=== PATIENT | female | born 1930 | race Caucasian/White ===

== ENCOUNTER → 2016-08-12 | Outpatient (CLI) | payer BC ==
[~2016-08-12] MED LIST: ALBU1AER9 INH; ASPCH81 PO; CLTP PO; GLCSC500400 PO; LSN5 PO; LUTE1TAB2 PO; MAGN400T5 PO; OMEG10007 PO; PRLSR20 PO; SIMV20TA2 PO; VERA240T20 PO
== END | disposition home or self-care (01) ==
LOC: C.RDSM 13:17
PROVIDERS: ATTEND Family Medicine
DX: M54.5 Low back pain (principal)

== ENCOUNTER 2016-12-30 04:07 | Emergency (ER) | payer BC ==
[~2016-12-30] VITALS: Ht 162.6 cm; Wt 68.9 kg
[2016-12-30 04:11] VITALS: TEMP 36.4; Ht 162.6 cm; Wt 68.9 kg
[2016-12-30] MEDS ORDERED: SODIUM CHLORIDE 0.9% 1000ML 1,000 ML IV STA (04:24)
[2016-12-30] MEDS ORDERED: FENTANYL CITRATE INJ 50 MCG/1 ML 2 ML VIAL IV STA (04:24)
[2016-12-30] MEDS ORDERED: ONDANSETRON INJ 2 MG/ML 2 ML VIAL IV STA (04:24)
[2016-12-30 04:36] LABS: BASO % 0.3 %; BASO ABS # 0.02 K/uL (0-0.2); COMPLETE YES; EOS % 2.3 %; HEMATOCRIT 40.1 % (37-47); IG% 0.1 %; LYMPH ABS # 2.46 K/uL (1.2-3.4); MEAN CELL VOLUME 80.2 fL (80-100); MEAN CORPUSCULAR HEMOGLOBIN 27.4 pg (25-34); MEAN CORPUSCULAR HGB CONC 34.2 g/dl (32-36); MEAN PLATELET VOLUME 9.5 fL (7.4-10.4); MONO % 6.4 %; NEUT % 58.9 %; PLATELET COUNT 225 K/uL (130-400); WHITE BLOOD COUNT 7.68 K/uL (4.8-10.8)
[2016-12-30 04:44] LABS: BUN/CREATININE RATIO 20.8 (10-20); CALCIUM 8.9 mg/dl (8.5-10.1); CREATININE 0.81 mg/dl (0.60-1.20); MAGNESIUM 2.1 mg/dl (1.8-2.4); POTASSIUM 3.6 mmol/L (3.5-5.1)
[2016-12-30] MEDS ORDERED: OPTIRAY 320 IV PRN (04:45)
--- NOTE | 2016-12-30 05:13 | EMERGENCY ROOM VISIT NOTE ---
History Report prepared by Dwayne: Cassidy Swanson Under the Supervision of: Dr. Sheri Zimmerman M.D. First contact with patient: 04:17 Chief Complaint: ABDOMINAL PAIN Stated Complaint: ABDOMINAL PAIN/NAUSEA Nursing Triage Summary: Pt woke up this evening with severe abdominal pain and cramping. Pt states she hasn't had a BM in over a week. Took 2 Dulcolax tablets last night without relief. C/o some nausea now. History of Present Illness The patient is an 86 year old female who presents to the Emergency Room with complaints of persistent abdominal pain starting 0300 today. The patient woke up with severe abdominal pain which is all over. She has never had this pain before. She is nauseous. She notes that she has had worsening constipation over the past month. She has not had a bowel movement in over 1 week. She keeps feeling like she needs to go to the bathroom, but she is not passing any stool. She is passing only a very small amount of gas. She is unsure why she is constipated. She denies any medication or diet changes. She denies any vomiting or bloody stools. She is not on any blood thinners. She has had a cholecystectomy. She has a history of diverticulosis and colon resection. Source of History: patient, spouse/significant other Onset: 0300 Position: abdomen Symptom Intensity: severe Quality: other (pain) Timing: other (persistent) Associated Symptoms: + nausea, No vomiting, No hematochezia Note: Pt reports constipation. Review of Systems See HPI for pertinent positives & negatives. A total of 10 systems reviewed and were otherwise negative. Past Medical & Surgical Medical Problems: (1) Aneurysm (2) Back surgery (3) Benign hypertension (4) Cholecystectomy (5) Lung surgery (6) Partial resection of colon Family History Stroke Social History Smoking Status: Never Smoker Alcohol Use: none Marital Status: Housing Status: lives with family Occupation Status: employed Current/Historical Medications Scheduled Aspirin (Aspirin Tab-Chewable *), 81 MG PO DAILY Calcium/Vitamin D (Caltrate 600 Plus *), 1 TAB PO DAILY Fish Oil ([place]-3), 3 CAP PO BID Glucosamine-Chondroitin (Glucosamine/Chondroitin), 1 TAB PO DAILY Lisinopril (Lisinopril), 5 MG PO DAILY Lutein (Lutein), 6 MG PO DAILY Magnesium Oxide (Mag-Ox), 400 MG PO DAILY Omeprazole (Prilosec), 20 MG PO DAILY Simvastatin (Zocor), 20 MG PO QPM Verapamil Sust Rel (Calan Sr Ext Rel), 240 MG PO DAILY Scheduled PRN Albuterol (Proair Hfa), 2 PUFFS INH QID PRN Allergies Coded Allergies: Adhesives (Verified Allergy, Unknown, RASH, REDDNESS AT SITE, 12/30/16) Codeine (Verified Allergy, Unknown, RASH, SEVERE ITCHING, 12/30/16) Metronidazole (Verified Allergy, Unknown, SEVERE YEAST/VAGINAL INFX, 12/30) Morphine (Verified Allergy, Unknown, IRREGULAR HEART RATE, EXTREME SEDATION, 12/30/16) Propoxyphene (Verified Adverse Reaction, Unknown, per pt, caused AFib, ) Physical Exam Vital Signs Date Time Temp Pulse Resp B/P (MAP) Pulse Ox O2 Delivery O2 Flow Rate FiO2 12/30/16 07:24 86 18 110/59 94 Room Air 12/30/16 04:45 77 18 129/66 97 Nasal Cannula 2.0 12/30/16 04:40 88 Room Air 12/30/16 04:14 80 12/30/16 04:11 36.4 80 18 131/77 94 Room Air Physical Exam Vital signs reviewed. General: Agitated and somewhat tearful female, in no significant distress. HEENT: No scleral icterus, PERRLA, neck supple. Atraumatic. Cardiovascular: Regular rate and rhythm, no extra sounds. Pulmonary: Clear to auscultation bilaterally, normal work of breathing. Abdomen: Soft, nontender, nondistended, positive bowel sounds. Rectal: Guaiac negative stool. Formed stool in the rectum. Large external hemorrhoid. Musculoskeletal: Atraumatic, no peripheral edema. Neurologic: Patient awake alert and oriented x 3 Skin: Warm, dry, no rash Medical Decision & Procedures ER Provider Diagnostic Interpretation: Radiology results as stated below per my review and [facility] radiologist interpretation: CT Abdomen & Pelvis with Contrast: Comparison: CT abdomen and pelvis 09/15/2011. Mild biliary prominence, likely secondary to cholecystectomy but slightly increased since 09/15/11. Correlate with labs for biliary stasis. Moderate amount of retained stool throughout the colon, suggesting constipation. Mild circumferential urinary bladder wall thickening. Correlate for cystitis. Colonic diverticulosis without evidence of diverticulitis. No evidence of bowel obstruction. No free air. Appendix is normal. Stable left adrenal nodule. Several subcentimeter hypodensities in the kidneys are too small to characterize but likely cysts. Uterus is surgically absent. Small hiatal hernia. Laboratory Results 12/30/16 04:16 Red Blood Count 5.00, Mean Corpuscular Volume 80.2, Mean Corpuscular Hemoglobin 27.4, Mean Corpuscular Hemoglobin Concent 34.2, Mean Platelet Volume 9.5, Neutrophils (%) (Auto) 58.9, Lymphocytes (%) (Auto) 32.0, Monocytes (%) (Auto) 6.4, Eosinophils (%) (Auto) 2.3, Basophils (%) (Auto) 0.3, Neutrophils # (Auto) 4.52, Lymphocytes # (Auto) 2.46, Monocytes # (Auto) 0.49, Eosinophils # (Auto) 0.18, Basophils # (Auto) 0.02 12/30/16 04:16 Test 12/30/16 04:16 12/30/16 04:32 White Blood Count 7.68 K/uL (4.8-10.8) Red Blood Count 5.00 M/uL (4.2-5.4) Hemoglobin 13.7 g/dL (12.0-16.0) Hematocrit 40.1 % (37-47) Mean Corpuscular Volume 80.2 fL (80-100) Mean Corpuscular Hemoglobin 27.4 pg (25-34) Mean Corpuscular Hemoglobin Concent 34.2 g/dl (32-36) Platelet Count 225 K/uL (130-400) Mean Platelet Volume 9.5 fL (7.4-10.4) Neutrophils (%) (Auto) 58.9 % Lymphocytes (%) (Auto) 32.0 % Monocytes (%) (Auto) 6.4 % Eosinophils (%) (Auto) 2.3 % Basophils (%) (Auto) 0.3 % Neutrophils # (Auto) 4.52 K/uL (1.4-6.5) Lymphocytes # (Auto) 2.46 K/uL (1.2-3.4) Monocytes # (Auto) 0.49 K/uL (0.11-0.59) Eosinophils # (Auto) 0.18 K/uL (0-0.5) Basophils # (Auto) 0.02 K/uL (0-0.2) RDW Standard Deviation 40.5 fL (36.4-46.3) RDW Coefficient of Variation 13.8 % (11.5-14.5) Immature Granulocyte % (Auto) 0.1 % Immature Granulocyte # (Auto) 0.01 K/uL (0.00-0.02) Anion Gap 6.0 mmol/L (3-11) Est Creatinine Clear Calc Drug Dose 49.3 ml/min Estimated GFR () 77.3 Estimated GFR (Non- 66.7 BUN/Creatinine Ratio 20.8 (10-20) Calcium Level 8.9 mg/dl (8.5-10.1) Magnesium Level 2.1 mg/dl (1.8-2.4) Total Bilirubin 0.8 mg/dl (0.2-1) Direct Bilirubin 0.2 mg/dl (0-0.2) Aspartate Amino Transf (AST/SGOT) 12 U/L (15-37) Alanine Aminotransferase (ALT/SGPT) 19 U/L (12-78) Alkaline Phosphatase 72 U/L (45-117) Total Protein 7.2 gm/dl (6.4-8.2) Albumin 3.7 gm/dl (3.4-5.0) Lipase 161 U/L (73-393) Bedside Troponin I < 0.030 ng/ml (0-0.045) Laboratory results per my review. Medications Administered Medications (Trade) Dose Ordered Sig/Cristian Route Start Time Stop Time Status Last Admin Dose Admin Fentanyl Citrate (Fentanyl Inj) 50 mcg NOW STAT IV 12/30/16 04:24 12/30/16 04:28 DC 12/30/16 04:32 50 MCG Ondansetron HCl (Zofran Inj) 4 mg NOW STAT IV 12/30/16 04:24 12/30/16 04:28 DC 12/30/16 04:32 4 MG Sodium Chloride 1,000 ml @ 125 mls/hr Q8H STAT IV 12/30/16 04:24 12/30/16 12:23 12/30/16 04:38 125 MLS/HR Miscellaneous (Soap Suds Enema) 1 ea NOW STAT WI 12/30/16 05:29 12/30/16 05:30 DC 12/30/16 05:29 1 EA ECG Indication: abdominal pain Rate (beats per minute): 80 Rhythm: normal sinus Findings: LBBB, no acute ischemic change, left axis deviation ED Course 0421: Past medical records reviewed. The patient was evaluated in room B6. A complete history and physical examination was performed. 0424: NSS 1000 ml @ 125 mls/hr IV, Zofran Inj 4 mg IV, Fentanyl Inj 50 mcg IV. 0529: Soap Suds Enema WI. 0643: Upon reevaluation, the patient appeared to have improvement of her symptoms. I discussed findings with her. She verbalized agreement of the treatment plan. She was discharged home. Medical Decision Differential diagnosis: Etiologies such as appendicitis, diverticulitis, PUD, biliary pathology, UTI, pancreatitis, obstruction, mesenteric ischemia, aortic pathology, infections, inflammatory bowel disease, renal colic, constipation, as well as others were entertained. This patient was evaluated and appeared to be in some discomfort. IV access was obtained and laboratory work was drawn. Patient has cramping diffuse abdominal pain. She was hydrated with normal saline solution and given IV fentanyl and Zofran for her symptom control. Laboratory work is fairly unrevealing. There is no evidence of UTI. There is no leukocytosis. CT scan abdomen and pelvis was performed as the patient has had significant issues with diverticulitis and is status post colon resection. This study is negative for acute inflammatory findings however there is significant stool throughout the colon. Patient admits that she has not had a bowel movement in greater than 1 week. Soapsuds enema was performed and the patient did have some moderate result. She was ambulatory at the bedside and able to speak with me comfortably. She was advised to use MiraLAX 1/2-1 capful every 8 hours as needed for additional BM. We discussed increasing the fluids and fiber in her diet. She will follow-up with her PCP for further management. The patient will return to the ER for worsening of symptoms or any medical concerns. Medication Reconcilliation Current Medication List: was personally reviewed by me Blood Pressure Screening Patient's blood pressure: Normal blood pressure Blood pressure disposition: Did not require urgent referral Impression Primary Impression: Constipation Additional Impression: Abdominal pain Scribe Attestation The scribe's documentation has been prepared under my direction and personally reviewed by me in its entirety. I confirm that the note above accurately reflects all work, treatment, procedures, and medical decision making performed by me. Departure Information Dispostion Home / Self-Care Referrals Jose Law M.D. (PCP) Forms HOME CARE DOCUMENTATION FORM, IMPORTANT VISIT INFORMATION Patient Instructions Constipation, My [facility] Additional Instructions Diagnosis: Constipation, abdominal pain Drink plenty of clear fluids. Increase the fiber in your diet. MiraLAX 1/2-1 capful in 8 ounces of water every 8 hours as needed for a bowel movement. Follow-up with your physician this week for reevaluation. Return to the ER for worsening of pain, fever or any medical concerns. Problem Qualifiers
[2016-12-30] MEDS ORDERED: SOAP SUDS ENEMA PR STA (05:29)
--- NOTE | 2016-12-30 06:38 | DIAGNOSTIC IMAGING REPORT ---
CT ABD/PELVIS IV CONTRAST ONLY CLINICAL HISTORY: Mid to upper abdominal pain COMPARISON STUDY: September 15, 2011 TECHNIQUE: Following the IV administration of 93 mL of Optiray-320, CT scan of the abdomen and pelvis was performed from the lung bases to the proximal femurs. Images are reviewed in the axial, sagittal, and coronal planes. IV contrast was administered without complication. A dose lowering technique was utilized adhering to the principles of ALARA. CT DOSE: 287.43 mGy.cm FINDINGS: Lower chest: There is subpleural interstitial thickening. There is a small hiatal hernia. Liver: There is mild ductal prominence, minimally more pronounced than on the preceding study Gallbladder: The gallbladder surgically absent Spleen: Normal in size and attenuation. Pancreas: Unremarkable. Adrenal glands: There is a 14 mm left adrenal nodule, unchanged from the prior study Kidneys: There is an 8 mm left renal cyst. No solid renal masses are visualized. Bowel: There are no transition zone to indicate bowel obstruction. There is colonic diverticulosis. No acute peridiverticular inflammatory changes are visualized. The appendix appears normal. Peritoneum: There is no intraperitoneal free air or abdominal ascites. Vasculature: The abdominal aorta is normal in course and caliber. Adenopathy: None. Pelvic viscera: The uterus is surgically absent. There is mild bladder wall thickening. Skeletal structures: No destructive osseous lesions are seen. IMPRESSION: 1. No evidence of bowel obstruction. No evidence of free air 2. Normal appendix. 3. Pandiverticulosis. No evidence of acute peridiverticular inflammatory change 4. Mild bladder wall thickening 5. Stable left adrenal gland nodule 6. Mild biliary ductal dilatation. Surgically absent gallbladder. Electronically signed by: Renzo Sarabia M.D. 12/30/2016 6:36 AM Dictated Date/Time: 12/30/2016 6:32 AM
[2016-12-30 07:24] VITALS: BP 110/59; PULSE 86; O2SAT 94
== END 2016-12-30 07:52 | disposition home or self-care (01) ==
LOC: EDBD 04:07 → C.EDB 04:07
DX: K59.00 Constipation, unspecified (principal); R10.9 Unspecified abdominal pain; I44.7 Left bundle-branch block, unspecified; I10 Essential (primary) hypertension; Z90.49 Acquired absence of other specified parts of digestive tract; Z98.890 Other specified postprocedural states; Z79.82 Long term (current) use of aspirin; Z79.899 Other long term (current) drug therapy; Z88.5 Allergy status to narcotic agent; Z88.8 Allergy status to other drugs, medicaments and biological substances; Z91.09 Other allergy status, other than to drugs and biological substances; Z82.3 Family history of stroke

== ENCOUNTER 2017-05-08 19:55 | Emergency (ER) | payer BC ==
[~2017-05-08] VITALS: Ht 162.6 cm; Wt 69.6 kg
[2017-05-08 19:58] VITALS: TEMP 36.7; Ht 162.6 cm; Wt 69.6 kg
[2017-05-08 21:08] LABS: BASO % 0.5 %; BASO ABS # 0.03 K/uL (0-0.2); EOS % 4.8 %; EOS ABS # 0.27 K/uL (0-0.5); HEMOGLOBIN 13.4 g/dL (12.0-16.0); IG# 0.01 K/uL (0.00-0.02); LYMPH % 38.4 %; LYMPH ABS # 2.16 K/uL (1.2-3.4); MEAN CELL VOLUME 78.8 fL (80-100); MEAN CORPUSCULAR HEMOGLOBIN 27.1 pg (25-34); MEAN CORPUSCULAR HGB CONC 34.4 g/dl (32-36); MEAN PLATELET VOLUME 9.5 fL (7.4-10.4); MONO % 7.7 %; MONO ABS # 0.43 K/uL (0.11-0.59); NEUT % 48.4 %; NEUT ABS # 2.72 K/uL (1.4-6.5); PLATELET COUNT 245 K/uL (130-400); RED CELL DISTRIBUTION WIDTH CV 14.5 % (11.5-14.5); RED CELL DISTRIBUTION WIDTH SD 41.1 fL (36.4-46.3); WHITE BLOOD COUNT 5.62 K/uL (4.8-10.8)
[2017-05-08 21:19] LABS: PTT PATIENT 27.3 SECONDS (21.0-31.0)
[2017-05-08 21:25] LABS: ALBUMIN 3.7 gm/dl (3.4-5.0); CALCIUM 9.1 mg/dl (8.5-10.1); CREATININE 0.83 mg/dl (0.60-1.20); POTASSIUM 3.8 mmol/L (3.5-5.1)
[2017-05-08 22:14] VITALS: BP 135/71; PULSE 97; O2SAT 96
--- NOTE | 2017-05-08 23:44 | EMERGENCY ROOM VISIT NOTE ---
History Report prepared by Dwayne: Benjamin Centeno Under the Supervision of: Dr. Jose Pratt M.D. First contact with patient: 20:04 Chief Complaint: RECTAL BLEEDING Stated Complaint: BLEEDING FROM COLON History of Present Illness The patient is an 87 year old female who presents to the Emergency Room with complaints of recurrent rectal bleeding for two days. She notes that the blood is bright red in color. She states that she had an episode of bloody stool yesterday. She was seen by her plant and equipment worker at [facility] at 1000 today and had an XR of her abdomen which showed that stool was present. She states that she did not have another episode prior to the XR. She also had blood work which she which she was told was unremarkable. She was informed to come to the ED for evaluation if she had another episode. She states that she had another episode this evening and was concerned. She denies any pain with bowel movements. She reports that she has a significant amount of stool during the bowel movements. She did not notice any clots. She has a history of hemorrhoids , diverticulitis, and hemorrhoidectomy. She denies any abdominal pain, black stools, fever, vomiting, chest pain, or headache. She denies any use of blood thinners. Source of History: patient Onset: two days Position: other (rectal) Quality: other (bleeding) Timing: other (recurrent) Associated Symptoms: No fevers, No headache, No chest pain, No vomiting, No abdominal pain Note: She notes bright red blood. She denies any pain with bowel movement or black stools. Review of Systems See HPI for pertinent positives & negatives. A total of 10 systems reviewed and were otherwise negative. Past Medical & Surgical Medical Problems: (1) Aneurysm (2) Back surgery (3) Benign hypertension (4) Cholecystectomy (5) Lung surgery (6) Partial resection of colon Family History Stroke Social History Smoking Status: Never Smoker Smokeless Tobacco Use: No Alcohol Use: none Drug Use: none Marital Status: Housing Status: lives with family Occupation Status: unemployed Current/Historical Medications Scheduled Aspirin (Aspirin Tab-Chewable *), 81 MG PO DAILY Calcium/Vitamin D (Caltrate 600 Plus *), 1 TAB PO DAILY Fish Oil ([place]-3), 3 CAP PO BID Glucosamine-Chondroitin (Glucosamine/Chondroitin), 1 TAB PO DAILY Lisinopril (Lisinopril), 5 MG PO DAILY Lutein (Lutein), 6 MG PO DAILY Magnesium Oxide (Mag-Ox), 400 MG PO DAILY Omeprazole (Prilosec), 20 MG PO DAILY Simvastatin (Zocor), 20 MG PO QPM Verapamil Sust Rel ([place] Sr Ext Rel), 240 MG PO DAILY Scheduled PRN Albuterol (Proair Hfa), 2 PUFFS INH QID PRN Allergies Coded Allergies: Adhesives (Verified Allergy, Unknown, RASH, REDDNESS AT SITE, 12/30/16) Codeine (Verified Allergy, Unknown, RASH, SEVERE ITCHING, 12/30/16) Metronidazole (Verified Allergy, Unknown, SEVERE YEAST/VAGINAL INFX, 12/30) Morphine (Verified Allergy, Unknown, IRREGULAR HEART RATE, EXTREME SEDATION, 12/30/16) Propoxyphene (Verified Adverse Reaction, Unknown, per pt, caused AFib, ) Physical Exam Vital Signs Date Time Temp Pulse Resp B/P (MAP) Pulse Ox O2 Delivery O2 Flow Rate FiO2 05/08/17 22:14 97 18 135/71 96 05/08/17 19:58 36.7 106 18 146/78 94 Room Air Physical Exam Constitutional: Vital signs reviewed. Eyes: Pupils are equal round reactive to light. Conjunctiva are noninjected. ENT: Pharynx is clear without erythema or exudate. Mucous membranes are moist. Neck supple without meningeal signs. Respiratory: Clear to auscultation bilaterally. Breath sounds are equal bilaterally. Cardiovascular: Regular rate and rhythm. No rubs or gallops. GI: Soft, nondistended and nontender. Bowel sounds are present. Rectal: Multiple non-bleeding external hemorrhoids. Dark brown stool with gross blood visible. Musculoskeletal: No peripheral edema. No lower extremity tenderness. Integumentary: No cyanosis. Neurological: The patient is awake and alert. No focal deficits. Psychiatric: Normal affect. Medical Decision & Procedures Laboratory Results 05/08/17 20:45 Red Blood Count 4.95, Mean Corpuscular Volume 78.8, Mean Corpuscular Hemoglobin 27.1, Mean Corpuscular Hemoglobin Concent 34.4, Mean Platelet Volume 9.5, Neutrophils (%) (Auto) 48.4, Lymphocytes (%) (Auto) 38.4, Monocytes (%) (Auto) 7.7, Eosinophils (%) (Auto) 4.8, Basophils (%) (Auto) 0.5, Neutrophils # (Auto) 2.72, Lymphocytes # (Auto) 2.16, Monocytes # (Auto) 0.43, Eosinophils # (Auto) 0.27, Basophils # (Auto) 0.03 05/08/17 20:45 Test 05/08/17 20:45 White Blood Count 5.62 K/uL (4.8-10.8) Red Blood Count 4.95 M/uL (4.2-5.4) Hemoglobin 13.4 g/dL (12.0-16.0) Hematocrit 39.0 % (37-47) Mean Corpuscular Volume 78.8 fL (80-100) Mean Corpuscular Hemoglobin 27.1 pg (25-34) Mean Corpuscular Hemoglobin Concent 34.4 g/dl (32-36) Platelet Count 245 K/uL (130-400) Mean Platelet Volume 9.5 fL (7.4-10.4) Neutrophils (%) (Auto) 48.4 % Lymphocytes (%) (Auto) 38.4 % Monocytes (%) (Auto) 7.7 % Eosinophils (%) (Auto) 4.8 % Basophils (%) (Auto) 0.5 % Neutrophils # (Auto) 2.72 K/uL (1.4-6.5) Lymphocytes # (Auto) 2.16 K/uL (1.2-3.4) Monocytes # (Auto) 0.43 K/uL (0.11-0.59) Eosinophils # (Auto) 0.27 K/uL (0-0.5) Basophils # (Auto) 0.03 K/uL (0-0.2) RDW Standard Deviation 41.1 fL (36.4-46.3) RDW Coefficient of Variation 14.5 % (11.5-14.5) Immature Granulocyte % (Auto) 0.2 % Immature Granulocyte # (Auto) 0.01 K/uL (0.00-0.02) Prothrombin Time 10.0 SECONDS (9.0-12.0) Prothromb Time International Ratio 1.0 (0.9-1.1) Activated Partial Thromboplast Time 27.3 SECONDS (21.0-31.0) Partial Thromboplastin Ratio 1.1 Anion Gap 7.0 mmol/L (3-11) Est Creatinine Clear Calc Drug Dose 47.5 ml/min Estimated GFR () 74.5 Estimated GFR (Non- 64.3 BUN/Creatinine Ratio 16.6 (10-20) Calcium Level 9.1 mg/dl (8.5-10.1) Total Bilirubin 0.5 mg/dl (0.2-1) Direct Bilirubin 0.1 mg/dl (0-0.2) Aspartate Amino Transf (AST/SGOT) 20 U/L (15-37) Alanine Aminotransferase (ALT/SGPT) 20 U/L (12-78) Alkaline Phosphatase 82 U/L (45-117) Total Protein 7.0 gm/dl (6.4-8.2) Albumin 3.7 gm/dl (3.4-5.0) Laboratory results as reviewed by me. ED Course 2005: The patient was evaluated in room B8. A complete history and physical exam was performed. 2141: Review of patients blood work from this morning showed the Hemoglobin was 13.5 at the time. 2143: I reassessed the patient at this time. She has not had any bleeding. I discussed the results and treatment plan with the patient. I answered all pertaining questions that she had. She expressed understanding and verbalized agreement. The patient will be discharged home. 2152: I spoke with the case finisher. She will help expedite close follow up for the patient. Medical Decision This is an 87-year-old female who presents with rectal bleeding. Differential diagnosis includes external hemorrhoids, internal hemorrhoids, anal fissure, GI bleed, anemia. I did perform a limited focused review of portions of the patient's old chart on the electronic medical record. The patient has had no recent pertinent visits to this hospital. I did evaluate the patient as noted above. The patient is presenting with rectal bleeding 2 episodes. She states it is bright red. She does have a history of hemorrhoids and does have visible external hemorrhoids. She denies any abdominal pain. She has no lightheadedness, shortness of breath or chest pain. He denies any weakness. IV access was established. I did order and review the patient's blood work as noted in the electronic medical record. Her hemoglobin is 13.4. Her hemoglobin earlier today was 13.5. There is no significant change. At this time I felt she was stable for discharge for outpatient workup. She was advised to follow-up with her GI doctor and the case finisher will help expedite follow-up appointment early next week. I did give her return precautions and advised to return should she have any worsening symptoms or develop any new symptoms such as chest pain, shortness of breath, weakness or lightheadedness. She was discharged in good condition. Medication Reconcilliation Current Medication List: was personally reviewed by me Blood Pressure Screening Patient's blood pressure: Elevated blood pressure Blood pressure disposition: Referred to PCP Impression Primary Impression: Rectal bleeding Scribe Attestation The scribe's documentation has been prepared under my direct and personally reviewed by me in its entirety. I confirm that the note above accurately reflects all work, treatment, procedures, and medical decision making performed by me. Departure Information Dispostion Home / Self-Care Referrals Jose Law M.D. (PCP) Forms HOME CARE DOCUMENTATION FORM, IMPORTANT VISIT INFORMATION, WORK / SCHOOL INSTRUCTIONS Patient Instructions ED Hematochezia Stable, My [facility] Additional Instructions You have been examined and treated today on an emergency basis only. This is not a substitute for, or an effort to provide, complete comprehensive medical care. It is impossible to recognize and treat all injuries or illnesses in a single emergency department visit. It is therefore important that you follow up closely with your physician. Call as soon as possible for an appointment. Return for worsening symptoms or if you develop black or tarry stools, large clots or dark blood, lightheadedness, weakness or shortness of breath, chest pain, or any other concerning symptoms.
== END 2017-05-08 22:16 | disposition home or self-care (01) ==
LOC: C.EDB 19:56
DX: K62.5 Hemorrhage of anus and rectum (principal); K92.89 Other specified diseases of the digestive system; Z79.82 Long term (current) use of aspirin; Z79.899 Other long term (current) drug therapy; Z88.8 Allergy status to other drugs, medicaments and biological substances

== ENCOUNTER → 2017-09-25 | Outpatient (CLI) | payer BC ==
[~2017-09-25] MED LIST changes: -ALBU1AER9 INH; -ASPCH81 PO; +ASPI81TA28 PO; +CALC-579 PO; -CLTP PO; -GLCSC500400 PO; +GLUC500C60 PO; +LISI-730 PO; -LSN5 PO; +OMEP20CA9 PO; +PLV75 PO; -PRLSR20 PO; +SIMV-151 PO; -SIMV20TA2 PO; -VERA240T20 PO; +VRPSR240 PO
--- NOTE | 2017-09-25 15:27 | MAMMOGRAPHY REPORT ---
BILATERAL DIGITAL SCREENING MAMMOGRAM TOMOSYNTHESIS WITH CAD: 09/25/2017 CLINICAL HISTORY: Routine screening. The patient reported to the technologist an area of thickening i nvolving the right breast for approximately 1 month. TECHNIQUE: The study was acquired using full field digital technology and interpreted from soft copy. Breast tomosynthesis in addition to standard 2D mammography was performed. Current study was also ev aluated with a Computer Aided Detection (CAD) system. COMPARISON: Comparison is made to exams dated: 10/12/2008, 10/12/2007. BREAST COMPOSITION: There are scattered areas of fibroglandular density in both breasts. FINDINGS: No suspicious masses, calcifications, or areas of architectural distortion are noted in either breast . There has been no significant interval change compared to prior exams. Scattered bilateral benign- appearing calcifications are again noted. A triangle marker was placed at the area of thickening poi nted out by the patient in the right breast at approximately 12:00 posteriorly; no suspicious masses or other suspicious mammographic abnormalities are noted in this region. IMPRESSION: ACR BI-RADS CATEGORY 2: BENIGN There is no mammographic evidence of malignancy in either breast. However, the patient reported a th ickening in the right breast for approximately 1 month. As the workup for a palpable abnormality inc ludes mammograms and ultrasound, targeted ultrasound is recommended for further evaluation. Also rec ommend routine bilateral screening mammograms in one year. The patient will receive written notification of the results. Some breast cancers are not detected with mammography. A negative mammographic report should not alexi y biopsy if a clinically suggestive mass is present. Anabel Chopra M.D. ah/:09/25/2017 14:57:50 Gauge Maker Apprentice: NAE Grant)([place]), [facility] [address] letter sent: Normal 1/2 BI-RADS Code: ACR BI-RADS Category 2: Benign
== END | disposition home or self-care (01) ==
LOC: C.MAMM 09:44
PROVIDERS: ATTEND Family Medicine
DX: Z12.31 Encounter for screening mammogram for malignant neoplasm of breast (principal)

== ENCOUNTER 2019-11-06 23:44 | Inpatient (IN) ==
[2019-11-06] MEDS ORDERED: dilTIAZem HCl 5 MG/ML 5 ML VIAL IV STA (23:51)
[2019-11-06] MEDS ORDERED: dilTIAZem HCl 5 MG/ML 5 ML VIAL IV ONE (23:52)
[2019-11-07 00:06] LABS: Hematocrit (blood only) 44.6 % (37-47); Hemoglobin 15.6 g/dL (12.0-16.0); Immature Granulocytes # (auto) 0.03 K/uL (0.00-0.02); Immature Granulocytes % (auto) 0.3 %; Lymphocytes # (auto) 1.69 K/uL (1.2-3.4); Lymphocytes % (auto) 18.9 %; Mean Corpuscular Hemoglobin 28.4 pg (25-34); Mean Corpuscular Volume 81.1 fL (80-100); Mean Platelet Volume 9.4 fL (7.4-10.4); Monocytes # (auto) 0.71 K/uL (0.11-0.59); Monocytes % (auto) 7.9 %; Neutrophils # (auto) 6.51 K/uL (1.4-6.5); Neutrophils % (auto) 72.9 %; Platelet Count 292 K/uL (130-400); RDW Coefficient of Variation 13.6 % (11.5-14.5); RDW Standard Deviation 40.5 fL (36.4-46.3); White Blood Count 8.94 K/uL (4.8-10.8)
[2019-11-07 00:27] LABS: Albumin Level 3.9 gm/dl (3.4-5.0); BUN Creatinine Ratio 20.4 (10-20); Calcium 9.1 mg/dl (8.5-10.1); Creatinine Clr Calc Pharmacy 41.5 ml/min; Est GFR (African American) 66.6; Est GFR (Non-African American) 57.5; Magnesium 2.2 mg/dl (1.8-2.4)
[2019-11-07 00:38] LABS: Bilirubin,Total 0.8 mg/dl (0.2-1); Globulin 3.8 gm/dl (2.5-4.0); Thyroid Stimulating Hormone 2.13 uIu/ml (0.300-4.500); Total Protein 7.7 gm/dl (6.4-8.2)
--- NOTE | 2019-11-07 00:39 | Emergency Department Note ---
Impression & Plan Atrial fibrillation with rapid ventricular response ED Provider Note NAME: FAHAD RICH AGE: 89 SEX: F ARRIVES VIA: Ambulance INFORMANT: Patient, EMS ED PROVIDER(S): Zena Rosenthal DO CHIEF COMPLAINT: Palpitation PLAN: Disposition: Admitted to the [facility] service Condition: Good MEDICAL DECISION MAKING: This is an 89-year-old female patient who presents to the emergency department with an episode of palpitations which was atrial fibrillation with rapid ventricular response. The patient received adenosine from EMS in the field which did not convert the patient. She presents in A. fib with RVR and received Cardizem here in the emergency department along with some Ativan and finally converted into a normal sinus rhythm. Patient describes a remote history of A. fib. I discussed the case with the [facility]ist and they will evaluate for further management. Triage Nursing notes reviewed and agree with them. Additional history obtained from EMS Prior medical records reviewed Vital Signs: reviewed and remarkable for tachycardia Differential diagnosis: A. fib with RVR, SVT, STEMI, NSTEMI, CHF ER treatment provided: IV Cardizem IV Ativan Diagnostics interpreted by me: ECG: ATRIAL fibrillation with rapid ventricular response at a rate of 149. No ischemic changes. No obvious ectopy. Cardiac Monitoring: A. fib with RVR at a rate of 136 Repeat EKG: Normal sinus rhythm at 81 with a left bundle branch block. There is T wave inversion in aVL with no obvious signs of ischemia or ST segment elevation Laboratory studies: See below Imaging studies: As per my interpretation Chest x-ray: No obvious cardiomegaly pulmonary infiltrates or pleural effusions Consultation(s): None HPI: 89/F arrives for evaluation of palpitations. The patient got up to go to bed when she began to feel a sudden onset of palpitations in her chest. She has a history of stroke and is on Coumadin for this. She describes having previous episodes of palpitations which only lasted for approximately 30 seconds to 60 seconds. This episode was lasting much longer and this prompted them to call EMS. Upon presentation to the emergency department, the patient was in atrial fibrillation with a rapid ventricular response. She complained of shortness of breath but no chest discomfort. ROS: See above HPI for pertinent positives & negatives. A total of 10 systems reviewed and were otherwise negative. PAST MEDICAL HISTORY:See Below PAST SURGICAL HISTORY:See Below FAMILY HISTORY:See Below SOCIAL HISTORY:See Below HOME MEDICATIONS:See list ALLERGIES:See list VITALS:See Below PHYSICAL EXAMINATION: HEENT: Head - normocephalic and atraumatic Pupils are equal, round, and reactive to light. Extraocular eye muscles are intact, and sclera are anicteric. Nose - moist nasal mucosa without discharge. Mouth - moist buccal mucosa. Oropharynx is nonerythematous and there is no tonsillar exudate or edema noted. Neck: Supple; no JVD, nuchal rigidity, cervical lymphadenopathy. Heart: Irregularly irregular rhythm with a tachycardic rate there is a normal S1 and S2 with no murmurs, clicks, or gallops appreciated. Lungs: Clear to auscultation bilaterally with no wheezes, rales, or rhonchi. Abdomen: Soft, completely nontender, nondistended, with good bowel sounds. There are no palpable pulsatile masses or hepatosplenomegaly. There is no guarding, rigidity, or rebound noted. Extremities: No evidence of cyanosis, clubbing, or edema. There are easily palpable peripheral pulses. Skin: warm and diaphoretic with good turgor and no rashes. ED COURSE: Times/Reassessments: 2345: The patient was quickly evaluated in room C4. Report was received from EMS. The patient had a second IV lock initiated and labs dra sandoval as above. Previous electronic medical records were reviewed. An order was placed for continuous cardiac monitoring. The patient was in atrial fibrillation with a rapid ventricular response. She was given a total of 20 mg of IV Cardizem which did bring her rate down initially. The patient remained hypertensive and tachycardic and seemed quite anxious. She was given IV Ativan. A portable chest x-ray was performed. After quite some time, the patient was able to relax some and her rhythm c onverted to a normal sinus rhythm. Discussed the case with the [facility]ist and they will evaluate for further management. I have personally spent greater than 40 minutes of critical care time in the direct management of this patient. This includes bedside care, interpretation of diagnostic studies, and testing, discussion with consultants, patient, and family members, and other required patient management activities. This 40 minutes is in excess of all separately billable procedures. Zena Rosenthal DO Past Med/Surg History Medical History (Updated 11/07/19 @ 05:31 by Zena Rosenthal DO) 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 Dysarthria Rectal bleeding Status post lung surgery (08/03/12) TIA (transient ischemic attack) Surgical History (Updated 04/20/19 @ 09:01 by Paulo Austin MD) H/O section H/O hemorrhoidectomy History of lung surgery Hx of cholecystectomy Family History (Updated 11/03/18 @ 06:43 by Elizabeth Rubio) Other Abdominal aortic aneurysm Stroke Social History Smoking Status: Never smoker Hx Alcohol Use: Yes Alcohol type: wine Hx Substance Use: No Preferred Language: Irish Communication Ability: Effective Truck [employer] Required: No Beliefs That Will Affect Care: None Current Living Situation: Spouse Feels Safe at Home: Yes Safety Concerns: Feels Safe At This Time Allergies Allergies Allergy/AdvReac Type Severity Reaction Status Date / Time adhesive Allergy Unknown RASH, Verified 11/07/19 02:50 REDDNESS AT SITE codeine Allergy Unknown RASH, Verified 11/07/19 02:50 SEVERE ITCHING metronidazole Allergy Unknown SEVERE Verified 11/07/19 02:50 YEAST/VAGINAL INFX morphine Allergy Unknown IRREGULAR Verified 11/07/19 02:50 HEART RATE, EXTREME SEDATION propoxyphene AdvReac Unknown per pt, Verified 11/07/19 02:50 caused AFib Home Meds Home Medications Medication Instructions Recorded Confirmed atorvastatin [Lipitor] 20 mg PO DAILY 01/30/18 11/07/19 clopidogrel [Plavix] 75 mg PO DAILY 01/30/18 11/07/19 lisinopril 5 mg PO DAILY 01/30/18 11/07/19 omeprazole 20 mg PO DAILY 01/30/18 11/07/19 verapamil 240 mg PO DAILY 01/30/18 11/07/19 albuterol sulfate 90 mcg/actuation 2 puffs INHALATION Q4H PRN #1 gm 10/26/18 11/07/19 aerosol inhaler calcium citrate-ergocalciferol 1 tab PO DAILY tab 10/26/18 11/07/19 (vitamin D2) 250 mg-100 unit tablet calcium-magnesium tablet 1 tab PO DAILY tab 10/26/18 11/07/19 glucosamine 750 [id number] 1 tab PO DAILY tab 10/26/18 11/07/19 no1 625 mg-C 30 mg-yennifer 1 mg tablet melatonin 10 mg tablet 10 mg PO DAILY tab 10/26/18 11/07/19 omega-3 acid ethyl esters 1 gram 4 cap PO DAILY cap 10/26/18 11/07/19 capsule Previous Rx's Medication Instructions Recorded polyethylene glycol 3350 [Miralax] 17 gm PO DAILY PRN #10 ea 01/31/18 Results & Data (ED) Vital Signs Vital Signs - 24 hr 11/07/19 00:02 11/07/19 00:08 11/07/19 00:09 Temperature 36.8 C Temperature Source Oral Pulse Rate 152 H Pulse Rate [Bilateral Apical] 106 H Respiratory Rate 20 20 Blood Pressure 142/86 H Blood Pressure [Right Arm] 132/68 Blood Pressure Mean 104 Blood Pressure Mean [Right Arm] 89 Blood Pressure Position Lying Blood Pressure Position [Right Arm] Lying Pulse Oximetry 96 98 96 Oxygen Delivery Method Room Air Nasal Cannula Nasal Cannula Oxygen Flow Rate 2 2 Sepsis Recent Fever Within 48 Hours No Sepsis New/Unexplained Change in Mental Status N/A Sepsis Action Taken by Nursing No Action Required 11/07/19 00:56 11/07/19 00:59 11/07/19 01:05 Temperature Temperature Source Pulse Rate Pulse Rate [Bilateral Apical] 140 H 127 H 115 H Respiratory Rate 22 20 20 Blood Pressure Blood Pressure [Right Arm] 133/93 118/69 Blood Pressure Mean Blood Pressure Mean [Right Arm] 106 85 Blood Pressure Position Blood Pressure Position [Right Arm] Pulse Oximetry 96 96 96 Oxygen Delivery Method Nasal Cannula Nasal Cannula Oxygen Flow Rate 2 2 Sepsis Recent Fever Within 48 Hours Sepsis New/Unexplained Change in Mental Status Sepsis Action Taken by Nursing 11/07/19 01:24 11/07/19 01:52 11/07/19 02:08 Temperature Temperature Source Pulse Rate Pulse Rate [Bilateral Apical] 121 H 117 H 84 Respiratory Rate 18 18 20 Blood Pressure Blood Pressure [Right Arm] 116/68 112/63 111/55 L Blood Pressure Mean Blood Pressure Mean [Right Arm] 84 79 73 Blood Pressure Position Blood Pressure Position [Right Arm] Pulse Oximetry 96 96 96 Oxygen Delivery Method Nasal Cannula Nasal Cannula Nasal Cannula Oxygen Flow Rate 2 2 2 Sepsis Recent Fever Within 48 Hours Sepsis New/Unexplained Change in Mental Status Sepsis Action Taken by Nursing 11/07/19 02:57 Temperature Temperature Source Pulse Rate Pulse Rate [Bilateral Apical] 79 Respiratory Rate 20 Blood Pressure Blood Pressure [Right Arm] 102/56 L Blood Pressure Mean Blood Pressure Mean [Right Arm] 71 Blood Pressure Position Blood Pressure Position [Right Arm] Pulse Oximetry 95 Oxygen Delivery Method Nasal Cannula Oxygen Flow Rate 2 Sepsis Recent Fever Within 48 Hours Sepsis New/Unexplained Change in Mental Status Sepsis Action Taken by Nursing Laboratory Data Result diagrams: 11/06/19 23:55 11/06/19 23:55 Lab Results 11/06/19 11/06/19 Range/Units 23:55 23:55 WBC 8.94 (4.8-10.8) K/uL RBC 5.50 H (4.2-5.4) M/uL Hgb 15.6 (12.0-16.0) g/dL Hct 44.6 (37-47) % MCV 81.1 (80-100) fL MCH 28.4 (25-34) pg MCHC 35.0 (32-36) g/dL RDW Std Deviation 40.5 (36.4-46.3) fL RDW Coeff of Coleman 13.6 (11.5-14.5) % Plt Count 292 (130-400) K/uL MPV 9.4 (7.4-10.4) fL Immature Gran % (Auto) 0.3 % Neut % (Auto) 72.9 % Lymph % (Auto) 18.9 % [place] % (Auto) 7.9 % Eos % (Auto) 0.0 % Baso % (Auto) 0.0 % Neut # (Auto) 6.51 H (1.4-6.5) K/uL Lymph # (Auto) 1.69 (1.2-3.4) K/uL [place] # (Auto) 0.71 H (0.11-0.59) K/uL Eos # (Auto) 0.00 (0-0.5) K/uL Baso # (Auto) 0.00 (0-0.2) K/uL Immature Gran # (Auto) 0.03 H (0.00-0.02) K/uL Sodium 139 (136-145) mmol/L Potassium 4.0 (3.5-5.1) mmol/L Chloride 107 (98-107) mmol/L Carbon Dioxide 26 (21-32) mmol/L Anion Gap 6.0 (3-11) BUN 18 (7-18) mg/dl Creatinine 0.90 (0.6-1.2) mg/dl Est Cr Clr Drug Dosing 41.5 ml/min Est GFR ( Amer) 66.6 Est GFR (Non-Af Amer) 57.5 BUN/Creatinine Ratio 20.4 H (10-20) Glucose 159 H (70-99) mg/dl Calcium 9.1 (8.5-10.1) mg/dl Magnesium 2.2 (1.8-2.4) mg/dl Total Bilirubin 0.8 (0.2-1) mg/dl AST 8 L (15-37) U/L ALT 18 (12-78) U/L Alkaline Phosphatase 88 (45-117) U/L Total Protein 7.7 (6.4-8.2) gm/dl Albumin 3.9 (3.4-5.0) gm/dl Globulin 3.8 (2.5-4.0) gm/dl Albumin/Globulin Ratio 1.0 (0.9-2) TSH 2.130 (0.300-4.500) uIu/ml Administered Medications Discontinued Medications Diltiazem HCl (Diltiazem Hcl 5 Mg/Ml 5 Ml Vial) Confirm Administered Dose 25 mg IV .STK-MED ONE Stop: 11/06/19 23:53 Last Increment: 11/07/19 00:00 Dose: 10 mg Documented by: [id number] Cosigned by: [id number] Diltiazem HCl (Diltiazem Hcl 5 Mg/Ml 5 Ml Vial) 10 mg IV NOW STA Stop: 11/06/19 23:52 Last Admin: 11/06/19 23:54 Dose: 10 mg Documented by: [id number] Cosigned by: [id number] Lorazepam (Ativan) 0.5 mg in 1 mls @ 1 mls/min IV NOW STA Stop: 11/07/19 01:09 Last Admin: 11/07/19 01:17 Dose: 1 mls/min Documented by: [id number] Discharge Plan Visit Data Chief Complaint: Tachycardia Stated Complaint: TACHYCARDIA ED Provider: Zena Rosenthal Discharge Problem: Atrial fibrillation with rapid ventricular response Patient Disposition: Admitted As Inpatient Discharge Instructions Interventions: ED Discharge Assessment Last Done: 11/07/19 03:47
[2019-11-07] MEDS ORDERED: LORazepam 0.5 MG/1 ML VIAL IV STA (01:08)
[2019-11-07] MEDS ORDERED: ALBUTEROL HFA 8 GM INHALER INH PRN (03:50)
[2019-11-07] MEDS ORDERED: POLYETHYLENE (MIRALAX) 17 GM PACK PO PRN (03:50)
[2019-11-07] MEDS ORDERED: NITROGLYCERIN SL 0.4 MG/TAB TAB SL PRN (03:50)
[2019-11-07] MEDS ORDERED: METOPROLOL TARTRATE 1 MG/ML VIAL IV PRN (03:50)
[2019-11-07] MEDS ORDERED: ONDANSETRON INJ 2 MG/ML 2 ML VIAL IV PRN (03:50)
[2019-11-07] MEDS ORDERED: ACETAMINOPHEN 325 MG TAB PO PRN (03:50)
--- NOTE | 2019-11-07 04:14 | History and Physical Report ---
DATE OF ADMISSION: 11/07/2019 CHIEF COMPLAINT: Rapid AFib. HISTORY OF PRESENT ILLNESS: This is an 89-year-old female with past medical history significant for hypertension, history of lung cancer, status post right upper lobectomy, history of sigmoidectomy for diverticulitis, history of hemorrhoids, chronic left bundle branch block, history of TIAs, history of single episode of atrial flutter several years ago in postop setting after upper extremity surgery, lasted for less than 3 hours, and the patient followed with cardiology and had outpatient Zio patch a few years back was unremarkable . The patient has chronic constipation, left lumbar radiculopathy, insomnia, osteoarthritis, who presents with palpitations, found to be on rapid atrial fibrillation. The patient says today she was fine until she was going to bed. When she was walking into the bedroom, she suddenly felt her heart pounding. She tried to rest, but it did not go away. Then called 911. When the EMS arrived, she was found in rapid AFib. They gave couple of doses of adenosine and then came to the ER. In the ER, she received 1 dose of Cardizem and she converted back to sinus rhythm. Currently, resting comfortably and hemodynamically stable. When the episode was happening, she was feeling somewhat nauseous and some chest tightness and short of breath; that is improved now. Denies any headache, no dizziness, no blurred vision, no earache, no runny nose, no sore throat, no cough, no difficulty swallowing. No abdominal pain. Normal bowel and bladder movements. Recently she had some bug bites and some lesions in the extremities with a lot of itchiness, which resolved a couple of weeks ago and she denies any tick bites. ALLERGIES: ADHESIVES, CODEINE, METRONIDAZOLE, MORPHINE, PROPOXYPHENE. PAST MEDICAL HISTORY: As mentioned above. PAST SURGICAL HISTORY: Carpal tunnel surgery, colonoscopy, hand surgery, shave biopsy of right lower back, lumbosacral injection, partial colectomy with anastomosis, removal of intrapulmonary foreign body, cholecystectomy, injection of the sacroiliac joint, left rotator cuff shoulder surgery, right upper lung lobectomy for lung cancer, total abdominal hysterectomy with removal of the tubes. MEDICATIONS: Currently, the patient is on albuterol 2 puffs inhalation q. 4 hours p.r.n., atorvastatin 20 mg p.o. daily, calcium plus vitamin D 1 tablet p.o. daily, calcium with magnesium 1 tablet daily, Plavix 75 mg p.o. daily, glucosamine chondroitin 1 tablet daily, lisinopril 5 mg p.o. daily, melatonin 10 mg p.o. daily, omega fatty acids 4 capsules daily, omeprazole 20 mg p.o. daily, MiraLax 17 g p.o. daily p.r.n., verapamil 240 mg p.o. daily. FAMILY HISTORY: Significant for aunt has diabetes, mother had heart disorder and abdominal aortic aneurysm, father had stroke. SOCIAL HISTORY: , lives with her . No smoking. Alcohol, occasional wine. No drug use. REVIEW OF SYSTEMS: As per HPI. Rest of the review of systems negative. PHYSICAL EXAMINATION: GENERAL: The patient is of moderate build, not in acute distress. VITAL SIGNS: Temperature 36.8, pulse 79, respiratory rate 20, blood pressure 102/56, oxygen 95% on 2 liters. HEENT: No pallor, no icterus. Pupils equal, round, and reactive to light. Oral mucosa moist. NECK: No JVD, no neck masses, no carotid bruits. CARDIOVASCULAR: S1, S2 heard, regular rate and rhythm. No murmur, no gallop. RESPIRATORY SYSTEM: Normal AP diameter. No accessory muscle use. No wheezing, no crackles. ABDOMEN: Soft, bowel sounds present, nontender. No distention. CENTRAL NERVOUS SYSTEM: Cranial nerves II-XII grossly intact. Nonfocal. EXTREMITIES: No edema, no erythema. LABORATORY DATA: WBC 8.9, hemoglobin 15.6, hematocrit 44.6, platelets 292. Sodium 139, potassium 4, chloride 107, bicarbonate 26, BUN 18, creatinine 0.9, serum glucose 159, calcium 9.1, magnesium 2.2, total bilirubin 0.8, AST 8, ALT 18, alkaline phosphatase 88. TSH 2.13. IMAGING DATA: Chest x-ray, no acute findings. EKG: Normal sinus rhythm, rate of 81, left bundle block. No acute ST changes seen. Initial EKG when she came in was atrial fibrillation with rapid ventricular response at rate of 152. Nonspecific ST changes. ASSESSMENT AND PLAN: This is an 89-year-old female who presents with atrial fibrillation. 1. Rapid atrial fibrillation. Received adenosine by EMS and Cardizem in the ER, and converted her back to normal sinus rhythm currently. The patient had one single episode of a flutter postop several years ago. We will monitor in the tele floor. Will continue her home verapamil and placed her on IV Lopressor p.r.n. Check serial enzymes, echocardiogram, and consult cardiology for further recommendations. Anticoagulation as per cardiology. Continue the Plavix for now. 2. History of hypertension, on lisinopril and verapamil. Will monitor the blood pressure. 3. Gastroesophageal reflux disease, continue Prilosec. 4. Hyperlipidemia, on statin. 5. Chronic constipation, MiraLax p.r.n. 6. Deep venous thrombosis prophylaxis, sequential compression devices. DISPOSITION: Admit to tele floor. Expect to discharge home and follow with family doctor. PT and OT prior to discharge. Social service to help with discharge planning. Level 1 full code. MTDD
[2019-11-07 07:09] LABS: Eosinophils # (auto) 0.01 K/uL (0-0.5); Eosinophils % (auto) 0.1 %; Hemoglobin 13.9 g/dL (12.0-16.0); Immature Granulocytes # (auto) 0.02 K/uL (0.00-0.02); Immature Granulocytes % (auto) 0.3 %; Lymphocytes # (auto) 1.84 K/uL (1.2-3.4); Lymphocytes % (auto) 23.9 %; Mean Corpuscular Hemoglobin 27.9 pg (25-34); Mean Corpuscular Hgb Conc 33.9 g/dL (32-36); Mean Corpuscular Volume 82.2 fL (80-100); Mean Platelet Volume 9.2 fL (7.4-10.4); Monocytes # (auto) 0.56 K/uL (0.11-0.59); Monocytes % (auto) 7.3 %; Neutrophils # (auto) 5.27 K/uL (1.4-6.5); Neutrophils % (auto) 68.4 %; Platelet Count 273 K/uL (130-400); RDW Coefficient of Variation 13.9 % (11.5-14.5); RDW Standard Deviation 41.9 fL (36.4-46.3); Red Blood Count 4.99 M/uL (4.2-5.4)
[2019-11-07 07:42] LABS: BUN Creatinine Ratio 25.3 (10-20); Calcium 8.9 mg/dl (8.5-10.1); Creatinine Clr Calc Pharmacy 46.9 ml/min; Est GFR (African American) 85.8; Est GFR (Non-African American) 74.1; Magnesium 2.3 mg/dl (1.8-2.4); Potassium 4.2 mmol/L (3.5-5.1)
[2019-11-07 07:48] LABS: Troponin I 0.028 ng/ml (0-0.045)
[2019-11-07] MEDS: lisinopriL 5 MG TAB PO SCH (08:10)
[2019-11-07] MEDS: CALCIUM 600MG + VIT D 400 IU TAB PO SCH (08:10)
[2019-11-07] MEDS: VERAPAMIL HCL 240 MG TABCR PO SCH (08:10)
[2019-11-07] MEDS: ATORVASTATIN 20 MG TAB PO SCH (08:11)
[2019-11-07] MEDS: PANTOprazole 40 MG TAB PO SCH (08:11)
--- NOTE | 2019-11-07 08:27 | XRay Report ---
XR chest 1V portable HISTORY: Atrial fibrillation. COMPARISON: Chest 06/30/2017. FINDINGS: The cardiac silhouette remains mildly enlarged. Mild diffuse interstitial thickening which is likely chronic. No new focal lung consolidations to suggest pneumonia. No evidence for pulmonary e colt. No pleural effusions. No pneumothorax. A right shoulder prosthesis is noted. IMPRESSION: No significant change compared to the prior study. No acute process. Stable mild cardiomegaly. ACT 112: Negative or not required by law. Electronically signed by: Elliot Singh M.D. 11/07/2019 8:26 AM
[2019-11-07] MEDS ORDERED: CALCIUM MAGNESIUM PO SCH (09:00)
[2019-11-07] MEDS ORDERED: CLOPIDOGREL BISULFATE 75 MG TAB PO SCH (09:00)
--- NOTE | 2019-11-07 09:32 | Electrocardiogram Report ---
Test Reason : Blood Pressure : / mmHG Vent. Rate : 149 BPM Atrial Rate : 159 BPM P-R Int : 000 ms QRS Dur : 126 ms QT Int : 322 ms P-R-T Axes : 000 -46 091 degrees QTc Int : 507 ms Atrial fibrillation with rapid ventricular response Left axis deviation Non-specific intra-ventricular conduction block Abnormal ECG When compared with ECG of 30-JUN-2017 16:26, Atrial fibrillation has replaced Sinus rhythm Vent. rate has increased BY 56 BPM Confirmed by Syed Arora ([id number]) on 11/07/2019 9:32:31 AM Referred By: REFERRED SELF Confirmed By:Syed Arora
--- NOTE | 2019-11-07 09:43 | Electrocardiogram Report ---
Test Reason : Blood Pressure : / mmHG Vent. Rate : 081 BPM Atrial Rate : 081 BPM P-R Int : 134 ms QRS Dur : 132 ms QT Int : 404 ms P-R-T Axes : 069 -59 078 degrees QTc Int : 469 ms Normal sinus rhythm Left axis deviation Left bundle branch block Abnormal ECG When compared with ECG of 06-NOV-2019 23:50, (unconfirmed) Sinus rhythm has replaced Atrial fibrillation Vent. rate has decreased BY 68 BPM Confirmed by Syed Arora ([id number]) on 11/07/2019 9:42:35 AM Referred By: REFERRED SELF Confirmed By:Syed Arora
--- NOTE | 2019-11-07 11:45 | Cardiology Consultation ---
Date of Consultation November 07, 2019 Assessment & Plan (1) Atrial fibrillation with rapid ventricular response: Patient is an 89-year-old female presents with atrial fibrillation with rapid response. Very remote history of past atrial flutter. Patient spontaneously converted to sinus rhythm after medications in the emergency room. She does carry history of past TIA and overall chads vasc 2 score of 6 and warrants long-term anticoagulation. Plan: Continue verapamil but add low-dose beta-shawn cautiously at 12.5 mg metoprolol succinate per day given underlying conduction system disease/left bundle branch block We will discontinue Plavix as being used for stroke reduction and initiate Eliquis versus warfarin depending on insurance coverage. Eliquis dosing will be 5 mg p.o. twice daily. No significant reduction in GFR and weight greater than 60 kg (2) History of TIA (transient ischemic attack): (3) HTN (hypertension): History of Present Illness Reason for Consultation: Paroxysmal atrial fibrillation Requesting Physician: Dr. Balderas Attending Physician: Maryan Baldreas MD History of Present Illness Patient is an 89-year-old female with underlying cardiac and noncardiac issues which include as per outpatient records 1. Longstanding hypertension 2. Chronic left bundle branch block 3. History of cerebral carotid artery aneurysm clipping 1988 4. Single episode transient atrial flutter post operatively 1988 5. Hyperlipidemia 6. Cardiac catheterization November 2010 without obstructive coronary disease 7. TIA with transient aphasia June of 2017 on anti-platelet therapy with clopidogrel Patient presents this admission noting having developed sudden onset of tachypalpitations and shortness of breath last evening. Symptoms persisted and paramedics were summoned initial treatments with adenosine at a rapid rate unhelpful. EKG on arrival atrial fibrillation with rapid response. Patient ultimately converted in the emergency room with single dose of IV diltiazem. Currently comfortable without cardiac complaint. No chest pain or shortness of breath. No orthopnea worsening peripheral edema. Has been very active day prior without complications or difficulties. No fevers chills unexplained infections. Appetite and weight have been stable. No headache or visual changes. No recent neurologic complaints Does bruise very easily on Plavix with multiple fragile skin tears in past. Allergies Allergy/AdvReac Type Severity Reaction Status Date / Time adhesive Allergy Unknown RASH, Verified 11/07/19 02:50 REDDNESS AT SITE codeine Allergy Unknown RASH, Verified 11/07/19 02:50 SEVERE ITCHING metronidazole Allergy Unknown SEVERE Verified 11/07/19 02:50 YEAST/VAGINAL INFX morphine Allergy Unknown IRREGULAR Verified 11/07/19 02:50 HEART RATE, EXTREME SEDATION propoxyphene AdvReac Unknown per pt, Verified 11/07/19 02:50 caused AFib Home Medications Home Medications Medication Instructions Recorded Confirmed Type atorvastatin [Lipitor] 20 mg PO DAILY 01/30/18 11/07/19 History clopidogrel [Plavix] 75 mg PO DAILY 01/30/18 11/07/19 History lisinopril 5 mg PO DAILY 01/30/18 11/07/19 History omeprazole 20 mg PO DAILY 01/30/18 11/07/19 History verapamil 240 mg PO DAILY 01/30/18 11/07/19 History polyethylene glycol 3350 [Miralax] 17 gm PO DAILY PRN #10 ea 01/31/18 11/07/19 Rx albuterol sulfate 90 mcg/actuation 2 puffs INHALATION Q4H PRN #1 gm 10/26/18 11/07/19 History aerosol inhaler calcium citrate-ergocalciferol 1 tab PO DAILY tab 10/26/18 11/07/19 History (vitamin D2) 250 mg-100 unit tablet calcium-magnesium tablet 1 tab PO DAILY tab 10/26/18 11/07/19 History glucosamine 750 [id number] 1 tab PO DAILY tab 10/26/18 11/07/19 History no1 625 mg-C 30 mg-yennifer 1 mg tablet melatonin 10 mg tablet 10 mg PO DAILY tab 10/26/18 11/07/19 History omega-3 acid ethyl esters 1 gram 4 cap PO DAILY cap 10/26/18 11/07/19 History capsule Patient History Medical History 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 Dysarthria Rectal bleeding Status post lung surgery (08/03/12) TIA (transient ischemic attack) Surgical History H/O section H/O hemorrhoidectomy History of lung surgery Hx of cholecystectomy Family History Other Abdominal aortic aneurysm Stroke Social History Smoking Status: Never smoker Hx Alcohol Use: Yes Alcohol type: wine Hx Substance Use: No Preferred Language: [place] Konger Communication Ability: Effective Facilities And Grounds Director Required: No Beliefs That Will Affect Care: None Current Living Situation: Spouse Feels Safe at Home: Yes Safety Concerns: Feels Safe At This Time Assistive Devices: Glasses Review of Systems Review of Systems: All systems reviewed & are unremarkable except as noted in HPI & below Physical Exam Constitutional: WD/WN, vitals as above no acute distress Eyes: PERRL, conjunctivae normal, anicteric sclerae ENMT: external ear and nose normal, oropharynx normal Neck: trachea midline, no thyromegaly Respiratory: normal respiratory effort, lungs clear to auscultation Cardiovascular: Rate/Rhythm: regular rate and regular rhythm Heart Sounds: normal S1, normal S2 and + murmur (Grade 2 or 6 systolic murmur no diastolic murmur); no gallop Palpation: normal PMI Vessels: normal carotid upstroke and radial pulses present; no JVD and no carotid bruit Extremities: no edema Gastrointestinal (Abdomen): normal bowel sounds, soft, nontender, no hepatosplenomegaly Musculoskeletal: no cyanosis or clubbing, extremities motor strength 5/5 Skin: no rashes, warm and dry Neurologic: PERRL, EOMI, accommodation nl, no face palsy, no dysarthria Psychiatric: A+Ox3, euthymic affect Results & Data ([facility]) Vital Signs (Past 12 Hours) Vital Signs Temp Pulse Pulse Resp BP BP Pulse Ox 11/07/19 07:54 36.6 C 72 18 121/68 97 11/07/19 04:03 36.7 C 74 18 119/70 97 11/07/19 03:47 64 18 105/51 L 98 11/07/19 02:57 79 20 102/56 L 95 11/07/19 02:08 84 20 111/55 L 96 11/07/19 01:52 117 H 18 112/63 96 11/07/19 01:24 121 H 18 116/68 96 11/07/19 01:05 115 H 20 118/69 96 11/07/19 00:59 127 H 20 96 11/07/19 00:56 140 H 22 133/93 96 11/07/19 00:09 106 H 20 132/68 96 11/07/19 00:08 98 09/21/20 00:02 36.8 C 152 H 20 142/86 H 96 Laboratory Results Laboratory Results - last 24 hr 11/06/19 11/06/19 11/07/19 23:55 23:55 06:52 WBC 8.94 7.70 RBC 5.50 H 4.99 Hgb 15.6 13.9 Hct 44.6 41.0 MCV 81.1 82.2 MCH 28.4 27.9 MCHC 35.0 33.9 RDW Std Deviation 40.5 41.9 RDW Coeff of Coleman 13.6 13.9 Plt Count 292 273 MPV 9.4 9.2 Immature Gran % (Auto) 0.3 0.3 Neut % (Auto) 72.9 68.4 Lymph % (Auto) 18.9 23.9 [place]oup % (Auto) 7.9 7.3 Eos % (Auto) 0.0 0.1 Baso % (Auto) 0.0 0.0 Neut # (Auto) 6.51 H 5.27 Lymph # (Auto) 1.69 1.84 Loup # (Auto) 0.71 H 0.56 Eos # (Auto) 0.00 0.01 Baso # (Auto) 0.00 0.00 Immature Gran # (Auto) 0.03 H 0.02 Sodium 139 Potassium 4.0 Chloride 107 Carbon Dioxide 26 Anion Gap 6.0 BUN 18 Creatinine 0.90 Est Cr Clr Drug Dosing 41.5 Est GFR ( Amer) 66.6 Est GFR (Non-Af Amer) 57.5 BUN/Creatinine Ratio 20.4 H Glucose 159 H Calcium 9.1 Magnesium 2.2 Total Bilirubin 0.8 AST 8 L ALT 18 Alkaline Phosphatase 88 Troponin I Total Protein 7.7 Albumin 3.9 Globulin 3.8 Albumin/Globulin Ratio 1.0 TSH 2.130 11/07/19 06:52 WBC RBC Hgb Hct MCV MCH MCHC RDW Std Deviation RDW Coeff of Coleman Plt Count MPV Immature Gran % (Auto) Neut % (Auto) Lymph % (Auto) Loup % (Auto) Eos % (Auto) Baso % (Auto) Neut # (Auto) Lymph # (Auto) Loup # (Auto) Eos # (Auto) Baso # (Auto) Immature Gran # (Auto) Sodium 141 Potassium 4.2 Chloride 110 H Carbon Dioxide 25 Anion Gap 6.0 BUN 19 H Creatinine 0.73 Est Cr Clr Drug Dosing 46.9 Est GFR ( Amer) 85.8 Est GFR (Non-Af Amer) 74.1 BUN/Creatinine Ratio 25.3 H Glucose 110 H Calcium 8.9 Magnesium 2.3 Total Bilirubin AST ALT Alkaline Phosphatase Troponin I 0.028 Total Protein Albumin Globulin Albumin/Globulin Ratio TSH
--- NOTE | 2019-11-07 12:12 | Hospitalist Progress Note ---
Date of Service November 07, 2019 Assessment & Plan (1) Atrial fibrillation with rapid ventricular response: Presented with sudden onset of palpitation with some chest tightness and shortness of breath since last evening History of transient atrial flutter/fibrillation several years back Rhythm reverted to sinus following administration of 10 mg of intravenous Cardizem Remains in sinus rhythm this morning Appreciate cardiology input and recommendation A small dose of beta-shawn has been added To need prolonged anticoagulation (2) History of TIA (transient ischemic attack): History of TIA and has been on Plavix We will discontinue Plavix and add warfarin and/or Eliquis (3) HTN (hypertension): Remains controlled and will continue current medications (4) Status post lung surgery: History of lung cancer and is status post right upper lobectomy (5) Hyperlipidemia: Continue statin (6) GERD (gastroesophageal reflux disease): Continue Prilosec Admission and Anticipated Discharge Date Admission Date: November 07, 2019 Subjective 11/07/2019 The patient was seen and examined in telemetry unit She is an 89-year-old female with significant past medical history including chronic left bundle branch block with a history of transient atrial flutter several years ago was admitted yesterday with another attack of A. fib She was reverted to sinus rhythm following intravenous administration of 10 mg of Cardizem IV She has been feeling a lot better since this morning Denies any significant symptoms Review of Systems Review of Systems: All systems reviewed and are unremarkable except as noted below Constitutional: + weakness Cardiovascular: no chest pain, no dyspnea at rest and no palpitations Physical Exam Physical Exam: Lying in bed comfortably Constitutional: well developed and well nourished; no acute distress and not ill appearing Eyes: PERRL, conjunctivae normal, anicteric sclerae ENMT: external ear and nose normal, oropharynx normal Neck: trachea midline, no thyromegaly Respiratory: normal respiratory effort; no respiratory distress Auscultation: lungs clear to auscultation bilaterally Cardiovascular: Rate/Rhythm: regular rate and regular rhythm Heart Sounds: + murmur (2/6 ejection systolic murmur over precordium) Gastrointestinal (Abdomen): Inspection/Auscultation: abdomen normal to inspection and normal bowel sounds Percussion/Palpation: abdomen soft; abdomen nontender Musculoskeletal: No acute arthritis involving any joints Neurologic: moves all extremities; no focal motor deficits Alert, awake and oriented x3 Psychiatric: A+Ox3, euthymic affect Lymphatic: no cervical or axillary lymphadenopathy Results & Data Results & Data ([facility]) Vital Signs (Past 12 Hours) Vital Signs Temp Pulse Pulse Resp BP BP Pulse Ox 11/07/19 07:54 36.6 C 72 18 121/68 97 11/07/19 04:03 36.7 C 74 18 119/70 97 11/07/19 03:47 64 18 105/51 L 98 11/07/19 02:57 79 20 102/56 L 95 11/07/19 02:08 84 20 111/55 L 96 11/07/19 01:52 117 H 18 112/63 96 11/07/19 01:24 121 H 18 116/68 96 11/07/19 01:05 115 H 20 118/69 96 11/07/19 00:59 127 H 20 96 11/07/19 00:56 140 H 22 133/93 96 11/07/19 00:09 106 H 20 132/68 96 11/07/19 00:08 98 11/07/19 00:02 36.8 C 152 H 20 142/86 H 96 Laboratory Results Short CBC 11/06/19 11/07/19 Range/Units 23:55 06:52 WBC 8.94 7.70 (4.8-10.8) K/uL Hgb 15.6 13.9 (12.0-16.0) g/dL Hct 44.6 41.0 (37-47) % Plt Count 292 273 (130-400) K/uL BMP 11/06/19 11/07/19 23:55 06:52 Sodium 139 141 Potassium 4.0 4.2 Chloride 107 110 H Carbon Dioxide 26 25 BUN 18 19 H Creatinine 0.90 0.73 Glucose 159 H 110 H Calcium 9.1 8.9 Cardiac Enzymes 11/07/19 Range/Units 06:52 Troponin I 0.028 (0-0.045) ng/ml Liver Function 11/06/19 Range/Units 23:55 Total Bilirubin 0.8 (0.2-1) mg/dl AST 8 L (15-37) U/L ALT 18 (12-78) U/L Alkaline Phosphatase 88 (45-117) U/L Albumin 3.9 (3.4-5.0) gm/dl Medications Administered Current Inpatient Medications Acetaminophen (Acetaminophen 325 Mg Tab) 650 mg PO Q4H PRN PRN Reason: Pain or Fever Stop: 12/07/19 03:49 Albuterol (Albuterol Hfa 8 Gm Inhaler) 2 puffs INH Q4H PRN PRN Reason: Shortness Of Breath Or Wheezing Stop: 12/07/19 03:49 Atorvastatin Calcium (Atorvastatin 20 Mg Tab) 20 mg PO DAILY [facility] Stop: 12/07/19 08:59 Last Admin: 11/07/19 08:11 Dose: 20 mg Documented by: Lisinopril (Lisinopril 5 Mg Tab) 5 mg PO DAILY [facility] Stop: 12/07/19 08:59 Last Admin: 11/07/19 08:10 Dose: 5 mg Documented by: Melatonin (Melatonin 3 Mg Tab) 9 mg PO HS [facility] Stop: 12/07/19 20:59 Metoprolol Succinate (Metoprolol Succ 25mg Ext Rel Tab) 12.5 mg PO QAM [facility] Stop: 12/07/19 11:59 Metoprolol Tartrate (Metoprolol Tartrate 1 Mg/Ml Vial) 2.5 mg IV Q4 PRN PRN Reason: Tachycardia Stop: 12/07/19 03:49 Multivitamins/Minerals (Calcium 600mg + Vit D 400 Iu Tab) 1 tab PO DAILY [facility] Stop: 12/07/19 08:59 Last Admin: 11/07/19 08:10 Dose: 1 tab Documented by: Nitroglycerin (Nitroglycerin Sl 0.4 Mg/Tab Tab) 0.4 mg SL UD PRN PRN Reason: Chest Pain Stop: 12/07/19 03:49 Ondansetron HCl (Ondansetron Inj 2 Mg/Ml 2 Ml Vial) 4 mg IV Q6H PRN PRN Reason: Nausea Stop: 12/07/19 03:49 Pantoprazole Sodium (Pantoprazole 40 Mg Tab) 40 mg PO DAILY [facility] Stop: 12/07/19 08:59 Last Admin: 11/07/19 08:11 Dose: 40 mg Documented by: Polyethylene Glycol (Polyethylene (Miralax) 17 Gm Pack) 17 gm PO DAILY PRN PRN Reason: Constipation Stop: 12/07/19 03:49 Verapamil HCl (Verapamil Hcl 240 Mg Tabcr) 240 mg PO DAILY [facility] Stop: 12/07/19 08:59 Last Admin: 09/21/20 08:10 Dose: 240 mg Documented by:
[2019-11-07] MEDS: METOPROLOL SUCC 25MG EXT REL TAB PO SCH (13:04)
[2019-11-07] MEDS: APIXABAN 5 MG TABLET PO SCH (20:50)
[2019-11-07] MEDS ORDERED: MELATONIN 3 MG TAB PO SCH (21:00)
[2019-11-08 06:13] LABS: Eosinophils # (auto) 0.04 K/uL (0-0.5); Eosinophils % (auto) 0.5 %; Hematocrit (blood only) 43.3 % (37-47); Hemoglobin 14.5 g/dL (12.0-16.0); Immature Granulocytes # (auto) 0.02 K/uL (0.00-0.02); Immature Granulocytes % (auto) 0.2 %; Lymphocytes # (auto) 2.16 K/uL (1.2-3.4); Lymphocytes % (auto) 26.1 %; Mean Corpuscular Hemoglobin 27.7 pg (25-34); Mean Corpuscular Hgb Conc 33.5 g/dL (32-36); Mean Corpuscular Volume 82.6 fL (80-100); Mean Platelet Volume 9.3 fL (7.4-10.4); Monocytes # (auto) 0.68 K/uL (0.11-0.59); Monocytes % (auto) 8.2 %; Neutrophils # (auto) 5.38 K/uL (1.4-6.5); Platelet Count 266 K/uL (130-400); RDW Coefficient of Variation 13.8 % (11.5-14.5); RDW Standard Deviation 41.6 fL (36.4-46.3); Red Blood Count 5.24 M/uL (4.2-5.4); White Blood Count 8.28 K/uL (4.8-10.8)
[2019-11-08 06:35] LABS: BUN Creatinine Ratio 30.2 (10-20); Calcium 9.1 mg/dl (8.5-10.1); Creatinine Clr Calc Pharmacy 42.3 ml/min; Est GFR (African American) 75.7; Est GFR (Non-African American) 65.3; Magnesium 2.3 mg/dl (1.8-2.4); Potassium 4.5 mmol/L (3.5-5.1)
[2019-11-08] MEDS: PANTOprazole 40 MG TAB PO SCH (09:48)
[2019-11-08] MEDS: ATORVASTATIN 20 MG TAB PO SCH (09:48)
[2019-11-08] MEDS: CALCIUM 600MG + VIT D 400 IU TAB PO SCH (09:48)
[2019-11-08] MEDS: APIXABAN 5 MG TABLET PO SCH (09:48)
[2019-11-08] MEDS: lisinopriL 5 MG TAB PO SCH (09:48)
[2019-11-08] MEDS: METOPROLOL SUCC 25MG EXT REL TAB PO SCH (09:48)
[2019-11-08] MEDS: VERAPAMIL HCL 240 MG TABCR PO SCH (09:49)
--- NOTE | 2019-11-08 11:23 | Cardiology Progress Note ---
Date of Service November 08, 2019 Assessment & Plan (1) Atrial fibrillation with rapid ventricular response: Patient is an 89-year-old female presents with atrial fibrillation with rapid response. Very remote history of past atrial flutter. Patient spontaneously converted to sinus rhythm after medications in the emergency room. She does carry history of past TIA and overall chads vasc 2 score of 6 and warrants long-term anticoagulation. Plan: Continue current therapies as ordered. Patient stable for discharge. Will need cardiology appointment approximately 2 weeks time with likely ZIO Patch monitor assess for frequency of atrial fibrillation as well is exclude bradycardia arrhythmias on combination therapy. Chronic anticoagulation already begun (2) History of TIA (transient ischemic attack): (3) HTN (hypertension): Admission and Anticipated Discharge Date Admission Date: November 07, 2019 Subjective Patient was seen and examined, chart, medications, telemetry reviewed. Feels well this morning. No chest pains, tachypalpitations, dizziness or lightheadedness. Ambulatory in room. No bleeding difficulties. No arrhythmias on telemetry. Physical Exam Constitutional: WD/WN, vitals as above no acute distress Eyes: PERRL, conjunctivae normal, anicteric sclerae ENMT: external ear and nose normal, oropharynx normal Neck: trachea midline, no thyromegaly Respiratory: normal respiratory effort, lungs clear to auscultation Cardiovascular: Rate/Rhythm: regular rate and regular rhythm Heart Sounds: normal S1, normal S2 and + murmur (Grade 2 or 6 systolic murmur no diastolic murmur); no gallop Palpation: normal PMI Vessels: normal carotid upstroke and radial pulses present; no JVD and no carotid bruit Extremities: no edema Gastrointestinal (Abdomen): normal bowel sounds, soft, nontender, no hepatosplenomegaly Musculoskeletal: no cyanosis or clubbing, extremities motor strength 5/5 Skin: no rashes, warm and dry Neurologic: PERRL, EOMI, accommodation nl, no face palsy, no dysarthria Psychiatric: A+Ox3, euthymic affect Results & Data ([facility]) Vital Signs (Past 12 Hours) Vital Signs Temp Pulse Pulse Resp BP Pulse Ox 11/08/19 07:45 36.8 C 68 18 126/66 94 11/08/19 07:17 73 11/08/19 03:47 36.9 C 62 16 126/66 97 11/08/19 00:34 36.6 C 69 16 124/73 95 Laboratory Results Laboratory Results - last 24 hr 11/07/19 11/07/19 11/07/19 12:46 16:10 20:18 WBC RBC Hgb Hct MCV MCH MCHC RDW Std Deviation RDW Coeff of Coleman Plt Count MPV Immature Gran % (Auto) Neut % (Auto) Lymph % (Auto) Bowman % (Auto) Eos % (Auto) Baso % (Auto) Neut # (Auto) Lymph # (Auto) [place] # (Auto) Eos # (Auto) Baso # (Auto) Immature Gran # (Auto) Sodium Potassium Chloride Carbon Dioxide Anion Gap BUN Creatinine Est Cr Clr Drug Dosing Est GFR ( Amer) Est GFR (Non-Af Amer) BUN/Creatinine Ratio Glucose POC Glucose 121 H 127 H Calcium Magnesium Troponin I 0.019 11/08/19 11/08/19 05:48 05:48 WBC 8.28 RBC 5.24 Hgb 14.5 Hct 43.3 MCV 82.6 MCH 27.7 MCHC 33.5 RDW Std Deviation 41.6 RDW Coeff of Coleman 13.8 Plt Count 266 MPV 9.3 Immature Gran % (Auto) 0.2 Neut % (Auto) 65.0 Lymph % (Auto) 26.1 Bowman % (Auto) 8.2 Eos % (Auto) 0.5 Baso % (Auto) 0.0 Neut # (Auto) 5.38 Lymph # (Auto) 2.16 Bowman # (Auto) 0.68 H Eos # (Auto) 0.04 Baso # (Auto) 0.00 Immature Gran # (Auto) 0.02 Sodium 138 Potassium 4.5 Chloride 106 Carbon Dioxide 28 Anion Gap 4.0 BUN 25 H Creatinine 0.81 Est Cr Clr Drug Dosing 42.3 Est GFR ( Amer) 75.7 Est GFR (Non-Af Amer) 65.3 BUN/Creatinine Ratio 30.2 H Glucose 110 H POC Glucose Calcium 9.1 Magnesium 2.3 Troponin I
--- NOTE | 2019-11-08 13:34 | Hospitalist Progress Note ---
Date of Service November 08, 2019 Assessment & Plan (1) Atrial fibrillation with rapid ventricular response: Presented with sudden onset of palpitation with some chest tightness and shortness of breath since last evening History of transient atrial flutter/fibrillation several years back Rhythm reverted to sinus following administration of 10 mg of intravenous Cardizem Remains in sinus rhythm this morning Appreciate cardiology input and recommendation A small dose of beta-shawn has been added Has been tolerating Eliquis 5 mg twice daily Remains stable and in sinus rhythm Will be discharged home this afternoon (2) History of TIA (transient ischemic attack): History of TIA and has been on Plavix We will discontinue Plavix and add warfarin and/or Eliquis (3) HTN (hypertension): Remains controlled and will continue current medications (4) Status post lung surgery: History of lung cancer and is status post right upper lobectomy (5) Hyperlipidemia: Continue statin (6) GERD (gastroesophageal reflux disease): Continue Prilosec Admission and Anticipated Discharge Date Admission Date: November 07, 2019 Anticipated date of discharge: 11/08/19 Subjective 11/07/2019 The patient was seen and examined in telemetry unit She is an 89-year-old female with significant past medical history including chronic left bundle branch block with a history of transient atrial flutter several years ago was admitted yesterday with another attack of A. fib She was reverted to sinus rhythm following intravenous administration of 10 mg of Cardizem IV She has been feeling a lot better since this morning Denies any significant symptoms 11/08/2019 The patient was seen and examined in telemetry unit She has been feeling a lot better and has been ambulating without any problem She will be discharged home this afternoon Review of Systems Review of Systems: All systems reviewed and are unremarkable except as noted below Constitutional: + weakness Physical Exam Physical Exam: Lying in bed comfortably Constitutional: well developed and well nourished; no acute distress and not ill appearing Eyes: PERRL, conjunctivae normal, anicteric sclerae ENMT: external ear and nose normal, oropharynx normal Neck: trachea midline, no thyromegaly Respiratory: normal respiratory effort; no respiratory distress Auscultation: lungs clear to auscultation bilaterally Cardiovascular: Rate/Rhythm: regular rate and regular rhythm Heart Sounds: + murmur (2/6 ejection systolic murmur over precordium) Gastrointestinal (Abdomen): Inspection/Auscultation: abdomen normal to inspection and normal bowel sounds Percussion/Palpation: abdomen soft; abdomen nontender Musculoskeletal: No acute arthritis involving any joints Neurologic: moves all extremities; no focal motor deficits Alert, awake and oriented x3. General weakness has improved a lot Psychiatric: A+Ox3, euthymic affect Lymphatic: no cervical or axillary lymphadenopathy Results & Data Results & Data ([facility]) Vital Signs (Past 12 Hours) Vital Signs Temp Pulse Pulse Resp BP Pulse Ox 11/08/19 11:38 36.4 C L 89 18 109/66 94 11/08/19 07:45 36.8 C 68 18 126/66 94 11/08/19 07:17 73 11/08/19 03:47 36.9 C 62 16 126/66 97 Laboratory Results Short CBC 11/08/19 Range/Units 05:48 WBC 8.28 (4.8-10.8) K/uL Hgb 14.5 (12.0-16.0) g/dL Hct 43.3 (37-47) % Plt Count 266 (130-400) K/uL BMP 11/08/19 05:48 Sodium 138 Potassium 4.5 Chloride 106 Carbon Dioxide 28 BUN 25 H Creatinine 0.81 Glucose 110 H Calcium 9.1 Medications Administered Current Inpatient Medications Acetaminophen (Acetaminophen 325 Mg Tab) 650 mg PO Q4H PRN PRN Reason: Pain or Fever Stop: 12/07/19 03:49 Albuterol (Albuterol Hfa 8 Gm Inhaler) 2 puffs INH Q4H PRN PRN Reason: Shortness Of Breath Or Wheezing Stop: 12/07/19 03:49 Apixaban (Apixaban 5 Mg Tablet) 5 mg PO BID [facility] Stop: 12/07/19 20:59 Last Admin: 11/08/19 09:48 Dose: 5 mg Documented by: Atorvastatin Calcium (Atorvastatin 20 Mg Tab) 20 mg PO DAILY [facility] Stop: 12/07/19 08:59 Last Admin: 11/08/19 09:48 Dose: 20 mg Documented by: Lisinopril (Lisinopril 5 Mg Tab) 5 mg PO DAILY [facility] Stop: 12/07/19 08:59 Last Admin: 11/08/19 09:48 Dose: 5 mg Documented by: Melatonin (Melatonin 3 Mg Tab) 9 mg PO HS [facility] Stop: 12/07/19 20:59 Last Admin: 11/07/19 20:50 Dose: 9 mg Documented by: Metoprolol Succinate (Metoprolol Succ 25mg Ext Rel Tab) 12.5 mg PO QAM [facility] Stop: 12/07/19 11:59 Last Admin: 11/08/19 09:48 Dose: 12.5 mg Documented by: Metoprolol Tartrate (Metoprolol Tartrate 1 Mg/Ml Vial) 2.5 mg IV Q4 PRN PRN Reason: Tachycardia Stop: 12/07/19 03:49 Multivitamins/Minerals (Calcium 600mg + Vit D 400 Iu Tab) 1 tab PO DAILY [facility] Stop: 12/07/19 08:59 Last Admin: 11/08/19 09:48 Dose: 1 tab Documented by: Nitroglycerin (Nitroglycerin Sl 0.4 Mg/Tab Tab) 0.4 mg SL UD PRN PRN Reason: Chest Pain Stop: 12/07/19 03:49 Ondansetron HCl (Ondansetron Inj 2 Mg/Ml 2 Ml Vial) 4 mg IV Q6H PRN PRN Reason: Nausea Stop: 12/07/19 03:49 Pantoprazole Sodium (Pantoprazole 40 Mg Tab) 40 mg PO DAILY [facility] Stop: 12/07/19 08:59 Last Admin: 11/08/19 09:48 Dose: 40 mg Documented by: Polyethylene Glycol (Polyethylene (Miralax) 17 Gm Pack) 17 gm PO DAILY PRN PRN Reason: Constipation Stop: 12/07/19 03:49 Verapamil HCl (Verapamil Hcl 240 Mg Tabcr) 240 mg PO DAILY [facility] Stop: 12/07/19 08:59 Last Admin: 11/08/19 09:49 Dose: 240 mg Documented by:
--- NOTE | 2019-11-08 15:30 | Electrocardiogram Report ---
Test Reason : Blood Pressure : / mmHG Vent. Rate : 070 BPM Atrial Rate : 070 BPM P-R Int : 138 ms QRS Dur : 132 ms QT Int : 424 ms P-R-T Axes : 061 -50 091 degrees QTc Int : 457 ms Normal sinus rhythm Left axis deviation Left bundle branch block Abnormal ECG When compared with ECG of 07-NOV-2019 02:04, No significant change was found Confirmed by Syed Arora ([id number]) on 11/08/2019 3:29:46 PM Referred By: REFERRED SELF Confirmed By:Syed Arora
--- NOTE | 2019-11-08 17:25 | Discharge Summary ---
Date of Service November 08, 2019 Admission HPI Per Admitting Provider DICTATED BY: Rafita Long MD DATE OF ADMISSION: 11/07/2019 CHIEF COMPLAINT: Rapid AFib. HISTORY OF PRESENT ILLNESS: This is an 89-year-old female with past medical history significant for hypertension, history of lung cancer, status post right upper lobectomy, history of sigmoidectomy for diverticulitis, history of hemorrhoids, chronic left bundle branch block, history of TIAs, history of single episode of atrial flutter several years ago in postop setting after upper extremity surgery, lasted for less than 3 hours, and the patient followed with cardiology and had outpatient Zio patch a few years back was unremarkable . The patient has chronic constipation, left lumbar radiculopathy, insomnia, osteoarthritis, who presents with palpitations, found to be on rapid atrial fibrillation. The patient says today she was fine until she was going to bed. When she was walking into the bedroom, she suddenly felt her heart pounding. She tried to rest, but it did not go away. Then called 911. When the EMS arrived, she was found in rapid AFib. They gave couple of doses of adenosine and then came to the ER. In the ER, she received 1 dose of Cardizem and she converted back to sinus rhythm. Currently, resting comfortably and hemodynamically stable. When the episode was happening, she was feeling somewhat nauseous and some chest tightness and short of breath; that is improved now. Denies any headache, no dizziness, no blurred vision, no earache, no runny nose, no sore throat, no cough, no difficulty swallowing. No abdominal pain. Normal bowel and bladder movements. Recently she had some bug bites and some lesions in the extremities with a lot of itchiness, which resolved a couple of weeks ago and she denies any tick bites. Admission Exam Per Admitting Provider GENERAL: The patient is of moderate build, not in acute distress. VITAL SIGNS: Temperature 36.8, pulse 79, respiratory rate 20, blood pressure 102/56, oxygen 95% on 2 liters. HEENT: No pallor, no icterus. Pupils equal, round, and reactive to light. Oral mucosa moist. NECK: No JVD, no neck masses, no carotid bruits. CARDIOVASCULAR: S1, S2 heard, regular rate and rhythm. No murmur, no gallop. RESPIRATORY SYSTEM: Normal AP diameter. No accessory muscle use. No wheezing, no crackles. ABDOMEN: Soft, bowel sounds present, nontender. No distention. CENTRAL NERVOUS SYSTEM: Cranial nerves II-XII grossly intact. Nonfocal. EXTREMITIES: No edema, no erythema. Principal Diagnosis Atrial fibrillation with RVR-reverted to sinus rhythm Discharge Exam Constitutional well developed and well nourished; no acute distress and not ill appearing Eyes PERRL, conjunctivae normal, anicteric sclerae ENMT external ear and nose normal, oropharynx normal Neck trachea midline, no thyromegaly Respiratory normal respiratory effort; no respiratory distress Auscultation: lungs clear to auscultation bilaterally Cardiovascular Rate/Rhythm: regular rate and regular rhythm Heart Sounds: + murmur (2/6 ejection systolic murmur over precordium) Gastrointestinal (Abdomen) Inspection/Auscultation: abdomen normal to inspection and normal bowel sounds Percussion/Palpation: abdomen soft; abdomen nontender Neurologic moves all extremities; no focal motor deficits Psychiatric A+Ox3, euthymic affect Lymphatic no cervical or axillary lymphadenopathy Discharge Data Allergies Allergy/AdvReac Type Severity Reaction Status Date / Time adhesive Allergy Unknown RASH, Verified 11/07/19 02:50 REDDNESS AT SITE codeine Allergy Unknown RASH, Verified 11/07/19 02:50 SEVERE ITCHING metronidazole Allergy Unknown SEVERE Verified 11/07/19 02:50 YEAST/VAGINAL INFX morphine Allergy Unknown IRREGULAR Verified 11/07/19 02:50 HEART RATE, EXTREME SEDATION propoxyphene AdvReac Unknown per pt, Verified 11/07/19 02:50 caused AFib Consultations 11/07/19 02:15 ED Decision to Admit Stat 11/07/19 03:50 Consult Case Management - Discharge Planning Routine 11/07/19 08:00 Consult Cardiology Routine 11/07/19 12:12 Consult Case Management - Discharge Planning Routine Hospital Course (1) Atrial fibrillation with rapid ventricular response: Presented with sudden onset of palpitation with some chest tightness and shortness of breath since last evening History of transient atrial flutter/fibrillation several years back Rhythm reverted to sinus following administration of 10 mg of intravenous Cardizem Remains in sinus rhythm this morning Appreciate cardiology input and recommendation A small dose of beta-shawn has been added Has been tolerating Eliquis 5 mg twice daily Remains stable and in sinus rhythm Will be discharged home this afternoon (2) History of TIA (transient ischemic attack): History of TIA and has been on Plavix We will discontinue Plavix and add warfarin and/or Eliquis (3) HTN (hypertension): Remains controlled and will continue current medications (4) Status post lung surgery: History of lung cancer and is status post right upper lobectomy (5) Hyperlipidemia: Continue statin (6) GERD (gastroesophageal reflux disease): Continue Prilosec Total Time Total Time Spent Total Time Spent (In Minutes): 35 minutes Total Time Includes: Examination of the Patient, Discharge Planning, Medication Reconciliation and Communication With Other Providers Discharge Plan Discharge Items Patient Disposition: Home - Self-Care Reason For Visit: A FIB Discharge Diagnosis: Atrial fibrillation with RVR-reverted to sinus rhythm Condition on Discharge: Good Activity: Resume your previous activity Non-emergency contact: Primary Care Provider Call non-emergency contact if: you have any medication questions and your symptoms worsen Follow-up/Referrals: Chung Arrington DO [Primary Care Provider] - 11/11/19 11:20 am (Date & Time 11/11/2019 11:20 AM Provider Chung Arrington DO Department [facility] ) Diet: Heart Healthy and Low Sodium (2gm) Addtl Attending Provider Instructions: Please take precaution to avoid falls Your Plavix has been discontinued New medication is with Eliquis 500 mg twice daily We will need to have a cardiology follow-up in 2 weeks Pending Studies at Discharge: No Stand-Alone Forms: My [facility] Reaction, Smoking Cessation Medications and DC Order Prescriptions: New metoprolol succinate 25 mg Tablet Extended Release 24 Hr 12.5 mg PO QAM 30 Days Qty: 15 RF: 0 Eliquis 5 mg Tablet 5 mg PO BID 30 Days Qty: 60 RF: 0 Continued melatonin 10 mg tablet 10 mg PO DAILY RF: 0 omega-3 acid ethyl esters 1 gram capsule 4 cap PO DAILY RF: 0 calcium-magnesium tablet 1 tab PO DAILY RF: 0 [id number]-[id number]-[id number]-C-yennifer-bor [Qfnnhmze-Veixg-KTF(with boron)] 467-694-25-1 mg tablet 1 tab PO DAILY RF: 0 Dick-Citrate 250-100 mg-unit tablet 1 tab PO DAILY RF: 0 albuterol sulfate 90 mcg/actuation HFA aerosol inhaler 2 puffs inhalation Q4H PRN (Reason: Shortness Of Breath Or Wheezing) Qty: 1 RF: 0 atorvastatin [Lipitor] 20 mg Tablet 20 mg PO DAILY RF: 0 omeprazole 20 mg Capsule,Delayed Release(Dr/Ec) 20 mg PO DAILY RF: 0 verapamil 240 mg Tablet Extended Release 240 mg PO DAILY RF: 0 lisinopril 5 mg Tablet 5 mg PO DAILY RF: 0 polyethylene glycol 3350 [Miralax] 17 gram powder in packet 17 gm PO DAILY PRN (Reason: constipation) Qty: 10 RF: 0 Discontinued clopidogrel [Plavix] 75 mg Tablet 75 mg PO DAILY RF: 0 Discharge Orders: Discharge Order (Routine); Ordered 11/08/19 Ordered By: Maryan Viveros/Other Patient Handouts: Apixaban oral tablets, Metoprolol tablets Admission Data Admit Date/Time: 11/07/19 03:07 Attending Provider: Maryan Balderas Admit Provider: Rafita Long Primary Care Provider: Chung Arrington Other Providers: Rafita Long ; [place] Other Interventions: Discharge Summary Assessment (RN) Last Done: 11/08/19 14:02
--- NOTE | 2019-11-09 14:00 | Electrocardiogram Report ---
Test Reason : Blood Pressure : / mmHG Vent. Rate : 071 BPM Atrial Rate : 071 BPM P-R Int : 142 ms QRS Dur : 138 ms QT Int : 420 ms P-R-T Axes : 060 -59 085 degrees QTc Int : 456 ms Normal sinus rhythm Left axis deviation Left bundle branch block Abnormal ECG When compared with ECG of 07-NOV-2019 10:44, (unconfirmed) No significant change was found Confirmed by Syed Arora ([id number]) on 11/09/2019 2:00:37 PM Referred By: REFERRED SELF Confirmed By:Syed Arora
== END 2019-11-08 15:07 | disposition home or self-care (01) | DRG 310 ==
LOC: ED 23:44 → 2S 11-07 03:07

== ENCOUNTER 2020-02-29 16:37 | Observation (INO) ==
--- NOTE | 2020-02-29 17:14 | Emergency Department Note ---
History of Present Illness General Chief complaint: Fall Stated complaint: SYNCOPE, FALL, HEAD LAC Time Seen by Provider: 02/29/20 17:00 History of Present Illness Onset (ago): hour(s) (Syncope) 1 (1.5) Location: head Radiation: non-radiation Severity: moderate Pain Consistency: + constant Maximum Pain Intensity: 7 Current Pain Intensity: 7 Quality: + aching and + dull Relieved By: + none Exacerbated By: + none Associated symptoms: + headaches and + syncope; no confusion, no chest pain, no cough, no diaphoresis, no fever/chills, no nausea/vomiting, no rash and no shortness of breath 89-year-old female on Eliquis presents emergency department for syncope. Patient states that approximate 1/2 hours ago she got up after trying to do tricks are possible and passed out. She states she hit her head on the back of her heart. She is reporting pain in her head. She also reports that she has been experiencing some dysuria recently. Patient reports that she was recently put on prednisone by her orthopedist for her right shoulder discomfort. Patient has been reporting that she has been feeling increasingly fatigued lately. No chest pain, difficulty breathing, abdominal pain, nausea, vomiting, melena, hematochezia, or hematuria. Home Medications Medication Instructions Recorded Confirmed Type atorvastatin [Lipitor] 20 mg PO HS 01/30/18 02/29/20 History lisinopril 5 mg PO QAM 01/30/18 02/29/20 History omeprazole 20 mg PO QAM 01/30/18 02/29/20 History verapamil 240 mg PO QPM 01/30/18 02/29/20 History melatonin 10 mg tablet 10 mg PO HS tab 10/26/18 02/29/20 History apixaban [Eliquis] 5 mg PO BID 12/31/19 02/29/20 History calcium carbonate [Calcium 600] 600 mg PO 3XWK 12/31/19 02/29/20 History diphenhydramine HCl [Sleep Aid 25 mg PO HS PRN 12/31/19 02/29/20 History (diphenhydramine)] glucosamine HCl-vitamin D3 1 tab PO 3XWK 12/31/19 02/29/20 History magnesium oxide 400 mg PO QAM 12/31/19 02/29/20 History metoprolol succinate 12.5 mg PO QAM 12/31/19 02/29/20 History omega-3 fatty acids [Dewey 3] 2 cap PO BID 12/31/19 02/29/20 History amoxicillin 500 mg tablet 2,000 mg PO ONCE PRN #4 tab 01/09/20 02/29/20 Rx methylprednisolone 4 mg tablets in 4 mg PO UD #1 packet 02/28/20 02/29/20 Rx a dose pack Allergies Allergy/AdvReac Type Severity Reaction Status Date / Time adhesive Allergy Unknown RASH, Verified 02/29/20 20:29 REDDNESS AT SITE codeine Allergy Unknown RASH, Verified 02/29/20 20:29 SEVERE ITCHING metronidazole Allergy Unknown SEVERE Verified 02/29/20 20:29 YEAST/VAGINAL INFX morphine Allergy Unknown IRREGULAR Verified 02/29/20 20:30 HEART RATE, EXTREME SEDATION propoxyphene AdvReac Unknown A-FIB Verified 02/29/20 20:30 Past Med/Surg History Medical History 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 Dysarthria Rectal bleeding Status post lung surgery (08/03/12) TIA (transient ischemic attack) Surgical History H/O section H/O hemorrhoidectomy History of lung surgery Hx of cholecystectomy Family History Other Abdominal aortic aneurysm Stroke Social History Smoking Status: Never smoker Second Hand Exposure: No; Do You Dip or Chew Tobacco: No; Tobacco Cessation Education Requested by Patient: No Hx Alcohol Use: Yes Alcohol type: wine Hx Substance Use: No Preferred Language: Omani Communication Ability: Effective Waste Duster Required: No Beliefs That Will Affect Care: Moravian Current Living Situation: Spouse Other Information That Helps Us Care for You: No Feels Safe at Home: Yes Safety Concerns: Feels Safe At This Time Assistive Devices: Glasses Review of Systems A total of 10 systems reviewed and were otherwise negative Physical Exam Vital Signs Vital Signs - 24 hr 02/29/20 16:45 02/29/20 17:33 02/29/20 18:15 Temperature 36.7 C Temperature Source Oral Pulse Rate - Lying Pulse Rate - Sitting Pulse Rate - Standing Pulse Rate 91 H Pulse Rate [Apical] 78 Respiratory Rate 20 18 Blood Pressure - Lying Blood Pressure - Sitting Blood Pressure- Standing Blood Pressure 152/67 H Blood Pressure [Left Arm] 145/83 H Blood Pressure Mean 95 Blood Pressure Mean [Left Arm] 103 Pulse Oximetry 93 97 95 Oxygen Delivery Method Room Air Room Air Room Air Sepsis Recent Fever Within 48 Hours No Sepsis New/Unexplained Change in Mental Status No Sepsis Action Taken by Nursing No Action Required 02/29/20 19:31 02/29/20 19:33 02/29/20 20:00 Temperature Temperature Source Pulse Rate - Lying 90 Pulse Rate - Sitting 94 H Pulse Rate - Standing 101 H Pulse Rate 94 H Pulse Rate [Apical] 92 H Respiratory Rate 18 20 Blood Pressure - Lying 122/70 Blood Pressure - Sitting 138/67 Blood Pressure- Standing 114/71 Blood Pressure 139/75 Blood Pressure [Left Arm] 125/67 Blood Pressure Mean 95 Blood Pressure Mean [Left Arm] 86 Pulse Oximetry 94 94 Oxygen Delivery Method Room Air Sepsis Recent Fever Within 48 Hours Sepsis New/Unexplained Change in Mental Status Sepsis Action Taken by Nursing Physical Exam GENERAL: She is oriented to person, place, and time. She appears well-developed and well-nourished. She does not appear distressed. HENT: Exam performed. -Head: 1 cm laceration over the occiput. -Right Ear: External ear normal. No mastoid tenderness. -Left Ear: External ear normal. No mastoid tenderness. -Mouth/Throat: The oropharynx is clear and moist. No trismus in the jaw. No dental abscesses or uvula swelling. No oropharyngeal exudate or tonsillar abscesses. EYES: Conjunctivae and EOM are normal. Pupils are equal, round, and reactive to light. Right eye exhibits no discharge. Left eye exhibits no discharge. No scleral icterus. NECK: Normal range of motion. Neck supple. No JVD present. No spinous process tenderness present. No carotid bruit present. No rigidity. No tracheal deviation and normal range of motion present. No Brudzinski's sign and no Kernig's sign noted. CV: Normal rate, irregular rhythm, normal heart sounds and intact distal pulses. There is no peripheral edema. Palpable radial pulses bue. PULM/CHEST: Effort normal and breath sounds normal. No respiratory distress. No stridor. She has no wheezes. She has no rales. -Chest Wall: She exhibits no tenderness. ABD: The abdomen is soft. Bowel sounds are normal. She has no distension. No mass is present. There is no tenderness. There is no rebound, no guarding, no Abbasi's sign and no tenderness at McBurney's point. Rovsig negative MUSC/SKEL: Normal range of motion. There is no peripheral edema, tenderness or d eformity. LYMPH: No cervical adenopathy. NEURO: She is alert and oriented to person, place, and time. She has normal strength. No cranial nerve deficit or sensory deficit. Coordination and gait normal. GCS eye subscore is 4. GCS verbal subscore is 5. GCS motor subscore is 6. Cerebellar tests wnl. SKIN: Skin is warm and dry. She is not diaphoretic. PSYCH: She has a normal mood and affect. Behavior is normal. Judgment and thought content normal. Procedures Laceration Laceration 1: Site: scalp Size (cm): 1 Description: linear Depth: simple, single layer Skin layer closed with: other (dermabond) Course Course 1700: The patient was evaluated in room B11. A complete history and physical exam was performed. Cardiac monitoring: An order was placed for continuous cardiac monitoring. The monitor shows a rate of 90 with sinus rhythm 1918: Vital signs stable. Labs within normal limits with exception of UTI. Rocephin given in the emergency department. CT shows no intracerebral hemorrhage or traumatic injury. Wound was repaired, see procedure note. Shanique ent will be evaluated by hospitalist team for admission given her syncope and prolonged QTC interval. Previous EKG showed no prolonged QTC intervals. Discussed with [facility] hospitalist Dr. Amato who will evaluate the patient. Administered Medications Atorvastatin Calcium (Atorvastatin 20 Mg Tab) 20 mg PO HS BERNARDINO Stop: 03/30/20 22:14 Last Admin: 02/29/20 22:49 Dose: 20 mg Documented by: [id number] Potassium Chloride/Sodium Chloride (Normal Saline W/20 Meq Kcl) 20 meq in 1,000 mls @ 75 mls/hr IV .[id number] ONE Stop: 03/01/20 11:34 Last Admin: 02/29/20 22:50 Dose: 75 mls/hr Documented by: [id number] Verapamil HCl (Verapamil Hcl 240 Mg Tabcr) 240 mg PO QPM BERNARDINO Stop: 03/30/20 22:14 Last Admin: 02/29/20 22:50 Dose: 240 mg Documented by: [id number] Discontinued Medications Acetaminophen (Acetaminophen 500 Mg Tab) 1,000 mg PO NOW STA Stop: 02/29/20 19:15 Last Admin: 02/29/20 19:26 Dose: 1,000 mg Documented by: [id number] Ceftriaxone Sodium (Rocephin) 1,000 mg in 50 mls @ 100 mls/hr IV NOW STA Stop: 02/29/20 18:44 Last Infusion: 02/29/20 19:05 Dose: 0 mls/hr Documented by: [id number] Admin: 02/29/20 18:39 Dose: 100 mls/hr Documented by: [id number] Methylprednisolone (Methylprednisolone 4 Mg Tab) 16 mg PO ONE ONE Stop: 02/29/20 22:16 Last Admin: 02/29/20 22:49 Dose: 16 mg Documented by: [id number] Medical Decision Making Laboratory Data Result diagrams: 02/29/20 17:30 02/29/20 18:15 Lab Results 02/29/20 02/29/20 02/29/20 Range/Units 17:30 17:30 17:55 WBC 6.42 (4.8-10.8) K/uL RBC 4.89 (4.2-5.4) M/uL Hgb 13.7 (12.0-16.0) g/dL Hct 40.3 (37-47) % MCV 82.4 (80-100) fL MCH 28.0 (25-34) pg MCHC 34.0 (32-36) g/dL RDW Std Deviation 40.9 (36.4-46.3) fL RDW Coeff of Coleman 13.6 (11.5-14.5) % Plt Count 292 (130-400) K/uL MPV 9.9 (7.4-10.4) fL Immature Gran % (Auto) 0.2 % Neut % (Auto) 92.0 % Lymph % (Auto) 7.2 % [place] % (Auto) 0.6 % Eos % (Auto) 0.0 % Baso % (Auto) 0.0 % Neut # (Auto) 5.91 (1.4-6.5) K/uL Lymph # (Auto) 0.46 L (1.2-3.4) K/uL [place] # (Auto) 0.04 L (0.11-0.59) K/uL Eos # (Auto) 0.00 (0-0.5) K/uL Baso # (Auto) 0.00 (0-0.2) K/uL Immature Gran # (Auto) 0.01 (0.00-0.02) K/uL Sodium 134 L (136-145) mmol/L Potassium (3.5-5.1) mmol/L Chloride 104 (98-107) mmol/L Carbon Dioxide 27 (21-32) mmol/L Anion Gap 3.0 (3-11) BUN 13 (7-18) mg/dl Creatinine 0.76 (0.6-1.2) mg/dl Est Cr Clr Drug Dosing 45.0 ml/min Est GFR ( Amer) 81.7 Est GFR (Non-Af Amer) 70.5 BUN/Creatinine Ratio 17.1 (10-20) Glucose 149 H (70-99) mg/dl Calcium 9.3 (8.5-10.1) mg/dl Magnesium (1.8-2.4) mg/dl Troponin I < 0.015 (0-0.045) ng/ml TSH (0.300-4.500) uIu/ml Urine Color Yellow Urine Appearance Cloudy A (Clear) Urine pH 7.5 (4.5-7.5) Ur Specific [place] 1.012 (1.000-1.030) Urine Protein Negative (Negative) Urine Glucose (UA) Negative (Negative) Urine Ketones Negative (Negative) Urine Blood 1+ H (Negative) Urine Nitrite Positive A (Negative) Urine Bilirubin Negative (Negative) Urine Urobilinogen Negative (Negative) Ur Leukocyte Esterase 3+ H (Negative) Urine WBC (Auto) >30 H (0-5) /hpf Urine RBC (Auto) 0-4 (0-4) /hpf U Hyaline Cast (Auto) 5-10 H (0-5) /lpf U Epithel Cells (Auto) 0-5 (0-5) /lpf Urine Bacteria (Auto) 2+ H (Negative) COVID-19 Eval Order SARS-CoV-2, RNA, NAAT (NEGATIVE) 02/29/20 02/29/20 02/29/20 Range/Units 18:15 18:15 19:28 WBC (4.8-10.8) K/uL RBC (4.2-5.4) M/uL Hgb (12.0-16.0) g/dL Hct (37-47) % MCV (80-100) fL MCH (25-34) pg MCHC (32-36) g/dL RDW Std Deviation (36.4-46.3) fL RDW Coeff of Coleman (11.5-14.5) % Plt Count (130-400) K/uL MPV (7.4-10.4) fL Immature Gran % (Auto) % Neut % (Auto) % Lymph % (Auto) % [place] % (Auto) % Eos % (Auto) % Baso % (Auto) % Neut # (Auto) (1.4-6.5) K/uL Lymph # (Auto) (1.2-3.4) K/uL [place] # (Auto) (0.11-0.59) K/uL Eos # (Auto) (0-0.5) K/uL Baso # (Auto) (0-0.2) K/uL Immature Gran # (Auto) (0.00-0.02) K/uL Sodium (136-145) mmol/L Potassium 3.9 (3.5-5.1) mmol/L Chloride (98-107) mmol/L Carbon Dioxide (21-32) mmol/L Anion Gap (3-11) BUN (7-18) mg/dl Creatinine (0.6-1.2) mg/dl Est Cr Clr Drug Dosing ml/min Est GFR ( Amer) Est GFR (Non-Af Amer) BUN/Creatinine Ratio (10-20) Glucose (70-99) mg/dl Calcium (8.5-10.1) mg/dl Magnesium 2.4 (1.8-2.4) mg/dl Troponin I (0-0.045) ng/ml TSH 1.010 (0.300-4.500) uIu/ml Urine Color Urine Appearance (Clear) Urine pH (4.5-7.5) Ur Specific [place] (1.000-1.030) Urine Protein (Negative) Urine Glucose (UA) (Negative) Urine Ketones (Negative) Urine Blood (Negative) Urine Nitrite (Negative) Urine Bilirubin (Negative) Urine Urobilinogen (Negative) Ur Leukocyte Esterase (Negative) Urine WBC (Auto) (0-5) /hpf Urine RBC (Auto) (0-4) /hpf U Hyaline Cast (Auto) (0-5) /lpf U Epithel Cells (Auto) (0-5) /lpf Urine Bacteria (Auto) (Negative) COVID-19 Eval [id number] SARS-CoV-2, RNA, NAAT (NEGATIVE) 02/29/20 Range/Units 19:28 WBC (4.8-10.8) K/uL RBC (4.2-5.4) M/uL Hgb (12.0-16.0) g/dL Hct (37-47) % MCV (80-100) fL MCH (25-34) pg MCHC (32-36) g/dL RDW Std Deviation (36.4-46.3) fL RDW Coeff of Coleman (11.5-14.5) % Plt Count (130-400) K/uL MPV (7.4-10.4) fL Immature Gran % (Auto) % Neut % (Auto) % Lymph % (Auto) % [place] % (Auto) % Eos % (Auto) % Baso % (Auto) % Neut # (Auto) (1.4-6.5) K/uL Lymph # (Auto) (1.2-3.4) K/uL [place] # (Auto) (0.11-0.59) K/uL Eos # (Auto) (0-0.5) K/uL Baso # (Auto) (0-0.2) K/uL Immature Gran # (Auto) (0.00-0.02) K/uL Sodium (136-145) mmol/L Potassium (3.5-5.1) mmol/L Chloride (98-107) mmol/L Carbon Dioxide (21-32) mmol/L Anion Gap (3-11) BUN (7-18) mg/dl Creatinine (0.6-1.2) mg/dl Est Cr Clr Drug Dosing ml/min Est GFR ( Amer) Est GFR (Non-Af Amer) BUN/Creatinine Ratio (10-20) Glucose (70-99) mg/dl Calcium (8.5-10.1) mg/dl Magnesium (1.8-2.4) mg/dl Troponin I (0-0.045) ng/ml TSH (0.300-4.500) uIu/ml Urine Color Urine Appearance (Clear) Urine pH (4.5-7.5) Ur Specific [place] (1.000-1.030) Urine Protein (Negative) Urine Glucose (UA) (Negative) Urine Ketones (Negative) Urine Blood (Negative) Urine Nitrite (Negative) Urine Bilirubin (Negative) Urine Urobilinogen (Negative) Ur Leukocyte Esterase (Negative) Urine WBC (Auto) (0-5) /hpf Urine RBC (Auto) (0-4) /hpf U Hyaline Cast (Auto) (0-5) /lpf U Epithel Cells (Auto) (0-5) /lpf Urine Bacteria (Auto) (Negative) COVID-19 Eval Order SARS-CoV-2, RNA, NAAT NEGATIVE (NEGATIVE) Imaging Data Radiologist's Impression: CT head/brain wo con CLINICAL HISTORY: Head pain status post trauma COMPARISON STUDY: 12/31/2019 TECHNIQUE: Axial CT of the brain is performed from the vertex to the skull base. IV contrast was not administered for this examination. A dose lowering technique was utilized adhering to the principles of ALARA. CT DOSE: 898.31 mGy.cm FINDINGS: No intra or extra-axial mass lesions are visualized. There is no CT evidence of acute cortical infarction. There is no evidence of midline shift. There is no acute hemorrhage. No calvarial fractures are visualized. There are patchy white matter hypodensities likely on a small vessel basis. There is no evidence of pathologic ventricular dilatation. There is no evidence of acute sinusitis There is a right parietal scalp hematoma. There are postsurgical changes are prior left frontal craniotomy. 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 IMPRESSION: 1. Right-sided scalp hematoma 2. No acute intracranial findings ACT 112: Negative or not required by law. Electronically signed by: Renzo Sarabia M.D. 02/29/2020 5:46 PM Dictated: 02/29/201740 Transcribed: 02/29/201741 CT OF THE CERVICAL SPINE CLINICAL HISTORY: Neck pain status post trauma COMPARISON STUDY: X-ray study dated 02/17/2013 CT DOSE: TECHNIQUE: CT scan of the cervical spine was performed from the skull base to the thoracic inlet. Images are reviewed in the axial, sagittal, and coronal planes. IV contrast was not administered for this examination. A dose lowering technique was utilized adhering to the principles of ALARA. FINDINGS: There is a multinodular thyroid gland. The largest nodule measures 14 mm. There is no apical pneumothorax. The prevertebral soft tissues are normal. No fractures or subluxations are visualized. There is reversal the normal cervical lordosis. There are multilevel degenerative changes IMPRESSION: No evidence of acute fracture or traumatic subluxation. ACT 112: Negative or not required by law. Electronically signed by: Renzo Sarabia M.D. 02/29/2020 5:47 PM Dictated: 02/29/201742 Transcribed: 02/29/201745 ECG Data Indication: + syncope Rate (beats per minute): 88 Rhythm: + sinus with SA ECG Intervals/blocks: + Normal QRS, + Prolonged QT and + Normal MD ECG ST segments: + Normal ST segments Additional Comments: MD 152 QRS 142 QTc 520. Left bundle branch block present. SgarBosa negative. When compared to previous EKGs, the patient has an established left bundle branch block but no prolonged QTC. EKG #2 at 1751: Sinus rhythm with a rate of 90. MD 176 QRS 144 QTC 496. Left bundle branch block present. SgarBosa negative. [facility] Narrative 1700: The patient was evaluated in room B11. A complete history and physical exam was performed. Cardiac monitoring: An order was placed for continuous cardiac monitoring. The monitor shows a rate of 90 with sinus rhythm 1918: Vital signs stable. Labs within normal limits with exception of UTI. R ocephin given in the emergency department. CT shows no intracerebral hemorrhage or traumatic injury. Wound was repaired, see procedure note. Patient will be evaluated by hospitalist team for admission given her syncope and prolonged QTC interval. Previous EKG showed no prolonged QTC intervals. Discussed with [facility] hospitalist Dr. Amato who will evaluate the patient. Impression & Plan Syncope, Prolonged Q-T interval on ECG, Acute UTI Discharge Plan Visit Data Chief Complaint: Fall Stated Complaint: SYNCOPE, FALL, HEAD LAC ED Provider: German Wiggins Discharge Problem: Syncope, Prolonged Q-T interval on ECG, Acute UTI Patient Disposition: Admitted As Inpatient Discharge Instructions Interventions: ED Discharge Assessment Last Done: 01/13/21 21:20 Discharge Problem: Syncope Qualifiers: Syncope type: unspecified Qualified Code(s): R55 - Syncope and collapse
[2020-02-29 17:38] LABS: Hematocrit (blood only) 40.3 % (37-47); Hemoglobin 13.7 g/dL (12.0-16.0); Immature Granulocytes # (auto) 0.01 K/uL (0.00-0.02); Immature Granulocytes % (auto) 0.2 %; Lymphocytes # (auto) 0.46 K/uL (1.2-3.4); Lymphocytes % (auto) 7.2 %; Mean Corpuscular Volume 82.4 fL (80-100); Mean Platelet Volume 9.9 fL (7.4-10.4); Monocytes # (auto) 0.04 K/uL (0.11-0.59); Monocytes % (auto) 0.6 %; Neutrophils # (auto) 5.91 K/uL (1.4-6.5); Platelet Count 292 K/uL (130-400); RDW Coefficient of Variation 13.6 % (11.5-14.5); RDW Standard Deviation 40.9 fL (36.4-46.3); Red Blood Count 4.89 M/uL (4.2-5.4); White Blood Count 6.42 K/uL (4.8-10.8)
--- NOTE | 2020-02-29 17:47 | CT Scan Report ---
CT head/brain wo con CLINICAL HISTORY: Head pain status post trauma COMPARISON STUDY: 12/31/2019 TECHNIQUE: Axial CT of the brain is performed from the vertex to the skull base. IV contrast was not administered for this examination. A dose lowering technique was utilized adhering to the principles of ALARA. CT DOSE: 898.31 mGy.cm FINDINGS: No intra or extra-axial mass lesions are visualized. There is no CT evidence of acute cortical infarc tion. There is no evidence of midline shift. There is no acute hemorrhage. No calvarial fractures ar e visualized. There are patchy white matter hypodensities likely on a small vessel basis. There is no evidence of pathologic ventricular dilatation. There is no evidence of acute sinusitis There is a right parietal scalp hematoma. There are postsurgical changes are prior left frontal craniotomy. There is an aneurysm clip within th e [place] possibly involving the proximal left middle cerebral artery. IMPRESSION: 1. Right-sided scalp hematoma 2. No acute intracranial findings ACT 112: Negative or not required by law. Electronically signed by: Renzo Sarabia M.D. 02/29/2020 5:46 PM
--- NOTE | 2020-02-29 17:48 | CT Scan Report ---
CT OF THE CERVICAL SPINE CLINICAL HISTORY: Neck pain status post trauma COMPARISON STUDY: X-ray study dated 02/17/2013 CT DOSE: TECHNIQUE: CT scan of the cervical spine was performed from the skull base to the thoracic inlet. [place] ges are reviewed in the axial, sagittal, and coronal planes. IV contrast was not administered for thi s examination. A dose lowering technique was utilized adhering to the principles of ALARA. FINDINGS: There is a multinodular thyroid gland. The largest nodule measures 14 mm. There is no apical pneumoth orax. The prevertebral soft tissues are normal. No fractures or subluxations are visualized. There is reversal the normal cervical lordosis. There are multilevel degenerative changes IMPRESSION: No evidence of acute fracture or traumatic subluxation. ACT 112: Negative or not required by law. Electronically signed by: Renzo Sarabia M.D. 02/29/2020 5:47 PM
[2020-02-29 18:09] LABS: BUN Creatinine Ratio 17.1 (10-20); Blood Urea Nitrogen 13 mg/dl (7-18); Calcium 9.3 mg/dl (8.5-10.1); Carbon Dioxide 27 mmol/L (21-32); Chloride 104 mmol/L (98-107); Est GFR (African American) 81.7; Est GFR (Non-African American) 70.5; Glucose 149 mg/dl (70-99); Sodium 134 mmol/L (136-145); Troponin I < 0.015 ng/ml (0-0.045)
[2020-02-29 18:10] LABS: Appearance Urine Cloudy (Clear); Bacteria Urine Automated 2+ (Negative); Bilirubin Urine Negative (Negative); Blood Urine 1+ (Negative); Color Urine Yellow; Epithelial Cell Urine Auto 0-5 /lpf (0-5); Glucose Urine UA Negative (Negative); Ketones Urine Negative (Negative); Leukocyte Esterase Urine 3+ (Negative); Nitrite Urine Positive (Negative); Protein Urine Negative (Negative); RBC Urine Automated 0-4 /hpf (0-4); Specific Gravity Urine 1.012 (1.000-1.030); Urobilinogen Urine Negative (Negative); WBC Urine Automated >30 /hpf (0-5); pH Urine 7.5 (4.5-7.5)
[2020-02-29] MEDS ORDERED: cefTRIAXone SODIUM 1,000 MG/50 ML BAG IV STA (18:15)
[2020-02-29 18:48] LABS: Potassium 3.9 mmol/L (3.5-5.1)
[2020-02-29 18:50] LABS: Magnesium 2.4 mg/dl (1.8-2.4)
[2020-02-29] MEDS ORDERED: ACETAMINOPHEN 500 MG TAB PO STA (19:14)
--- NOTE | 2020-02-29 20:23 | History & Physical Report ---
Date of Service February 29, 2020 Assessment & Plan (1) Syncope: Rule out orthostasis Rule out predisposing arrhythmia given cardiac history, conduction disease (chronic LAFB, LBBB, prolonged QTC) Complicated UTI, no sepsis PAF on Eliquis, patient NSR hx PVD, TIA as per records Scalp hematoma secondary to fall Increased predisposition with anticoagulation. Hemoglobin stable lung cancer R sp surgery biceps tendinitis ongoing steroid Rx Steroid-induced hyperglycemia rule out DM PCU Check orthostatic vitals Cardiology consult Re: Syncope, cardiac history as per patient/ request Following cultures, IV Ceftriaxone Hold Eliquis for now given scalp hematoma Resume when hemoglobin/hematoma stable Complete steroid course for biceps tendinitis Check hemoglobin A1c DVT prophylaxis. SCDs while Eliquis on hold Full code Text document was generated using [employer] voice recognition software. It may contain grammatical or spelling errors. Kindly contact undersigned for clarification of any documentation item in question. History of Present Illness Chief Complaint: Syncope Primary Care Provider: Chung Arrington DO History obtained from patient, family, and records. Medical history significant for lung cancer R sp surgery , CAD, PAF on Eliquis, hypertension, chronic LBBB, hx TIA as per records, PVD, biceps tendinitis ongoing steroid Rx. Last confinement October 2019 for A. fib with RVR. 2D echo showed LVH, EF 60 to 65%. Diastolic dysfunction, aortic valve sclerosis, trace mitral regurgitation. 2 days history of dysuria symptoms without fever, chills. Fair appetite. Patient had a syncopal event at home yesterday after she stood up from the table after working on a puzzle. No chest pain, no S OB. thinks patient may just have been out for a few moments as she was awake when he found her. No witnessed seizure episodes. Patient noted to have a bleeding posterior scalp wound. Possible episode possibly last year when patient went to the bathroom as per . No ER consultation at that time. Patient brought to the ER for evaluation. Given Ceftriaxone for UTI. MEDICAL HISTORY: As above. SURGERIES: Shoulder surgery, lung surgery, bowel surgery. Trigger finger release, MADISYN, carpal tunnel surgery, skin cancer surgery FAMILY HISTORY: heart disease. PERSONAL AND SOCIAL HISTORY: Nonsmoker. No chronic intake of ETOH intake. 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 Allergies Allergy/AdvReac Type Severity Reaction Status Date / Time adhesive Allergy Unknown RASH, Verified 02/29/20 20:29 REDDNESS AT SITE codeine Allergy Unknown RASH, Verified 02/29/20 20:29 SEVERE ITCHING metronidazole Allergy Unknown SEVERE Verified 02/29/20 20:29 YEAST/VAGINAL INFX morphine Allergy Unknown IRREGULAR Verified 02/29/20 20:30 HEART RATE, EXTREME SEDATION propoxyphene AdvReac Unknown A-FIB Verified 02/29/20 20:30 Home Medications Medication Instructions Recorded Confirmed Type atorvastatin [Lipitor] 20 mg PO HS 01/30/18 02/29/20 History lisinopril 5 mg PO QAM 01/30/18 02/29/20 History omeprazole 20 mg PO QAM 01/30/18 02/29/20 History verapamil 240 mg PO QPM 01/30/18 02/29/20 History melatonin 10 mg tablet 10 mg PO HS tab 10/26/18 02/29/20 History apixaban [Eliquis] 5 mg PO BID 12/31/19 02/29/20 History calcium carbonate [Calcium 600] 600 mg PO 3XWK 12/31/19 02/29/20 History diphenhydramine HCl [Sleep Aid 25 mg PO HS PRN 12/31/19 02/29/20 History (diphenhydramine)] glucosamine HCl-vitamin D3 1 tab PO 3XWK 12/31/19 02/29/20 History magnesium oxide 400 mg PO QAM 12/31/19 02/29/20 History metoprolol succinate 12.5 mg PO QAM 12/31/19 02/29/20 History omega-3 fatty acids [[place] 3] 2 cap PO BID 12/31/19 02/29/20 History amoxicillin 500 mg tablet 2,000 mg PO ONCE PRN #4 tab 01/09/20 02/29/20 Rx methylprednisolone 4 mg tablets in 4 mg PO UD #1 packet 02/28/20 02/29/20 Rx a dose pack Past Med/Surg History Medical History 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 Dysarthria Rectal bleeding Status post lung surgery (08/03/12) TIA (transient ischemic attack) Surgical History H/O section H/O hemorrhoidectomy History of lung surgery Hx of cholecystectomy Family History Other Abdominal aortic aneurysm Stroke Social History Smoking Status: Never smoker Second Hand Exposure: No; Do You Dip or Chew Tobacco: No; Tobacco Cessation Education Requested by Patient: No Hx Alcohol Use: Yes Alcohol type: wine Hx Substance Use: No Preferred Language: Salvadorean Communication Ability: Effective Religious Studies Professor Required: No Beliefs That Will Affect Care: Zoroastrianism Current Living Situation: Spouse Other Information That Helps Us Care for You: No Feels Safe at Home: Yes Safety Concerns: Feels Safe At This Time Assistive Devices: Glasses Review of Systems Review of Systems: As per HPI, all 10 systems reviewed, all other ROS negative Physical Exam Physical Exam: GENERAL: Comfortable, slightly anxious, no respiratory distress, pleasant, looks younger than stated age SKIN: Normal color, warm HEENT: Tender swelling posterior scalp, [place] palpebral conjunctivae, no ptosis, dry buccal mucosa NECK : Supple, no tenderness CHEST : CTA, no tenderness HEART : RRR, no obvious murmurs ABDOMEN: Some distention, nontender EXTREMITIES : No LE swelling/tenderness, minimal tenderness right forearm, no other conspicuous deformities noted NEUROLOGIC : Coherent, no facial asymmetry, no other gross focality Results & Data Results & Data ([facility]) Vital Signs (Past 12 Hours) Vital Signs Temp Pulse Pulse Resp BP BP Pulse Ox 02/29/20 20:00 94 H 20 139/75 94 02/29/20 19:31 92 H 18 125/67 94 02/29/20 18:15 78 18 145/83 H 95 02/29/20 17:33 97 02/29/20 16:45 36.7 C 91 H 20 152/67 H 93 Laboratory Results Laboratory Results WBC 6.42 K/uL (4.8-10.8) 02/29/20 17:30 RBC 4.89 M/uL (4.2-5.4) 02/29/20 17:30 Hgb 13.7 g/dL (12.0-16.0) 02/29/20 17:30 Hct 40.3 % (37-47) 02/29/20 17:30 MCV 82.4 fL (80-100) 02/29/20 17:30 MCH 28.0 pg (25-34) 02/29/20 17:30 MCHC 34.0 g/dL (32-36) 02/29/20 17:30 RDW Std Deviation 40.9 fL (36.4-46.3) 02/29/20 17: RDW Coeff of [place] 13.6 % (11.5-14.5) 02/29/20 17: Plt Count 292 K/uL (130-400) 02/29/20 17: MPV 9.9 fL (7.4-10.4) 02/29/20 17: Immature Gran % (Auto) 0.2 % 02/29/20 17: Neut % (Auto) 92.0 % 02/29/20: Lymph % (Auto) 7.2 % 02/29/20: [place] % (Auto) 0.6 % 02/29/20: Eos % (Auto) 0.0 % 02/29/20: Baso % (Auto) 0.0 % 02/29/20 17: Neut # (Auto) 5.91 K/uL (1.4-6.5) 02/29/20 17:30 Lymph # (Auto) 0.46 K/uL (1.2-3.4) L 02/29/20 17:30 [place] # (Auto) 0.04 K/uL (0.11-0.59) L 02/29/20 17:30 Eos # (Auto) 0.00 K/uL (0-0.5) 02/29/20 17:30 Baso # (Auto) 0.00 K/uL (0-0.2) 02/29/20 17:30 Immature Gran # (Auto) 0.01 K/uL (0.00-0.02) 02/29/20 17:30 Sodium 134 mmol/L (136-145) L 02/29/20 17:30 Potassium 3.9 mmol/L (3.5-5.1) 02/29/20 18:15 Chloride 104 mmol/L (98-107) 02/29/20 17:30 Carbon Dioxide 27 mmol/L (21-32) 02/29/20 17:30 Anion Gap 3.0 (3-11) 02/29/20 17:30 BUN 13 mg/dl (7-18) 02/29/20 17:30 Creatinine 0.76 mg/dl (0.6-1.2) 02/29/20 17:30 Est Cr Clr Drug Dosing 45.0 ml/min 02/29/20 17:30 Est GFR ( Amer) 81.7 02/29/20 17:30 Est GFR (Non-Af Amer) 70.5 02/29/20 17:30 BUN/Creatinine Ratio 17.1 (10-20) 02/29/20 17:30 Glucose 149 mg/dl (70-99) H 02/29/20 17:30 Calcium 9.3 mg/dl (8.5-10.1) 02/29/20 17:30 Magnesium 2.4 mg/dl (1.8-2.4) 02/29/20 18:15 Troponin I < 0.015 ng/ml (0-0.045) 02/29/20 17:30 TSH 1.010 uIu/ml (0.300-4.500) 02/29/20 18:15 Urine Color Yellow 02/29/20 17:55 Urine Appearance Cloudy (Clear) A 02/29/20 17:55 Urine pH 7.5 (4.5-7.5) 02/29/20 17:55 Ur Specific [place] 1.012 (1.000-1.030) 02/29/20 17:55 Urine Protein Negative (Negative) 02/29/20 17:55 Urine Glucose (UA) Negative (Negative) 02/29/20 17:55 Urine Ketones Negative (Negative) 02/29/20 17:55 Urine Blood 1+ (Negative) H 02/29/20 17:55 Urine Nitrite Positive (Negative) A 02/29/20 17:55 Urine Bilirubin Negative (Negative) 02/29/20 17:55 Urine Urobilinogen Negative (Negative) 02/29/20 17:55 Ur Leukocyte Esterase 3+ (Negative) H 02/29/20 17:55 Urine WBC (Auto) >30 /hpf (0-5) H 02/29/20 17:55 Urine RBC (Auto) 0-4 /hpf (0-4) 02/29/20 17:55 U Hyaline Cast (Auto) 5-10 /lpf (0-5) H 02/29/20 17:55 U Epithel Cells (Auto) 0-5 /lpf (0-5) 02/29/20 17:55 Urine Bacteria (Auto) 2+ (Negative) H 02/29/20 17:55 COVID[facility]19 [facility] 02/29/20 19:28 SARS-CoV-2, RNA, NAAT NEGATIVE (NEGATIVE) 02/29/20 19:[address] head: 1. Right-sided scalp hematoma 2. No acute intracranial findings CT cervical spine: No evidence of acute fracture or traumatic subluxation. EKG as per my interpretation: Rate 90, LAD, LAFB, LBBB, PVCs, QTC 520 (1) Syncope Syncope type: unspecified Qualified Code(s): R55 - Syncope and collapse
[2020-02-29] MEDS ORDERED: traMADol HCL 50 MG TABLET PO PRN (21:58)
[2020-02-29] MEDS ORDERED: NON-FORMULARY MEDICATION (Methylprednisolone 4 mg tablets,dose pack) PO SCH (21:58)
[2020-02-29] MEDS ORDERED: ACETAMINOPHEN 325 MG TAB PO PRN (21:58)
[2020-02-29] MEDS ORDERED: PROMETHAZINE HCL 6.25 MG in SODIUM CHLORIDE 0.9% 50 ML IV PRN (21:58)
[2020-02-29] MEDS ORDERED: methylPREDNISolone 4 MG TAB PO ONE (22:15)
[2020-02-29] MEDS ORDERED: NSS + 20MEQ KCL 20 MEQ/1,000 ML BAG IV ONE (22:15)
[2020-02-29] MEDS: ATORVASTATIN 20 MG TAB PO SCH (22:49)
[2020-02-29] MEDS: VERAPAMIL HCL 240 MG TABCR PO SCH (22:50)
[2020-03-01] MEDS ORDERED: NITROGLYCERIN SL 0.4 MG/TAB TAB SL STA (05:40)
[2020-03-01] MEDS ORDERED: NITROGLYCERIN SL 0.4 MG/TAB TAB ONE (05:45)
[2020-03-01 06:08] LABS: Hematocrit (blood only) 38.8 % (37-47); Hemoglobin 13.3 g/dL (12.0-16.0); Immature Granulocytes # (auto) 0.01 K/uL (0.00-0.02); Immature Granulocytes % (auto) 0.1 %; Lymphocytes # (auto) 0.83 K/uL (1.2-3.4); Lymphocytes % (auto) 12.2 %; Mean Corpuscular Hemoglobin 28.1 pg (25-34); Mean Corpuscular Hgb Conc 34.3 g/dL (32-36); Mean Platelet Volume 9.3 fL (7.4-10.4); Monocytes # (auto) 0.07 K/uL (0.11-0.59); Neutrophils # (auto) 5.92 K/uL (1.4-6.5); Neutrophils % (auto) 86.7 %; Platelet Count 308 K/uL (130-400); RDW Coefficient of Variation 13.5 % (11.5-14.5); RDW Standard Deviation 40.7 fL (36.4-46.3); Red Blood Count 4.73 M/uL (4.2-5.4); White Blood Count 6.83 K/uL (4.8-10.8)
[2020-03-01] MEDS: methylPREDNISolone 4 MG TAB PO SCH ×3 (06:19→17:35)
[2020-03-01 06:22] LABS: Partial Thromboplastin Ratio 1.1; Partial Thromboplastin Time 31.3 Seconds (21.0-31.0)
[2020-03-01 06:39] LABS: BUN Creatinine Ratio 21.2 (10-20); Calcium 8.9 mg/dl (8.5-10.1); Est GFR (African American) 96.1; Est GFR (Non-African American) 82.9; Potassium 3.9 mmol/L (3.5-5.1)
[2020-03-01 07:03] LABS: Estimated Average Glucose 126 mg/dl
--- NOTE | 2020-03-01 07:59 | XRay Report ---
XR chest 1V portable CLINICAL HISTORY: Shortness of breath COMPARISON STUDY: 11/07/2019 FINDINGS: The cardiac and mediastinal contours remain stable. There is a stable 9 mm right apical nod ule likely postinflammatory. Slight increase in markings within the right midlung zone laterally like ly related to technical factors. If symptoms persist, a follow-up PA and lateral study be obtained. T here is no failure.[ IMPRESSION: 1. Stable 9 mm right apical nodule. 2. Slightly prominent markings within the right midlung zone laterally, likely related to technical f actors. If symptoms persist, a PA and lateral study could be obtained in follow-up. ACT 112: Negative or not required by law. Electronically signed by: Renzo Sarabia M.D. 03/01/2020 7:58 AM
[2020-03-01] MEDS: METOPROLOL SUCC 25MG EXT REL TAB PO SCH (08:07)
[2020-03-01] MEDS: PANTOprazole 40 MG TAB PO SCH (08:07)
[2020-03-01] MEDS: OMEGA-3 (PURIFIED FISH OIL) 1 GM CAP PO SCH ×2 (08:08→20:01)
[2020-03-01] MEDS: lisinopril 5 MG TAB PO SCH (08:09)
[2020-03-01] MEDS ORDERED: [UNRECOGNIZED DRUG - OTHER] PO SCH (09:00)
[2020-03-01] MEDS ORDERED: GLUCOSAMINE PO SCH (09:00)
--- NOTE | 2020-03-01 09:48 | Medical Student H&P ---
Date of Service March 01, 2020 Assessment & Plan (1) Syncope: Sudden loss of consciousness upon standing with no prodrome, no confusion or symptoms upon waking. Differential includes orthostatic syncope, arrhythmia, other neurocardiogenic cause of syncope. Not likely reflex syncope, seizure, or TIA/stroke. No prodrome, no confusion and no neuro deficits at time of event or currently. Usually no orthostatic hypotension at home. Patient has a history of a fib with RVR although is usually aware of the episodes. Syncope type: unspecified Qualified Code(s): R55 - Syncope and collapse (2) HTN (hypertension): Managed with lisinopril 5mg, verapamil 240 mg, metoprolol succinate 12.5mg. Highest BP this admission were 152/67 and 145/83. Average around 120/65. Lowest on past admission was 102/56. (3) Atrial fibrillation with rapid ventricular response: On telemetry: Sinus rhythm in 80s. Managed with metoprolol succinate 12.5mg QD, verapamil 240mg, apixaban 5mg BID. Admission and Anticipated Discharge Date Admission Date: February 29, 2020 History of Present Illness Chief Complaint: loss of consciousness with fall and head injury Primary Care Provider: Chung Arrington DO Ms. Payan is a pleasant 89 year old woman with a history of HTN, HLD, LBBB, CAD, paroxysmal afib, clipped cerebral carotid aneurism, and TIA who presented to the ER after losing consciousness, falling, and striking her head on a table. She was feeling good that day and was sitting down working at a table when she went to stand up and immediately lost consciousness. She did not feel any warning signs, no lightheadedness, no vertigo, no tunnel vision, no palpitations, SOB or chest pain. She woke up to her putting pressure on her bleeding head wound from hitting the table on the way down. She was in pain but otherwise no symptoms like confusion, lightheadedness or chest discomfort. She is unsure how long she was out, estimating a few minutes. She has only passed out once before at 2018 when she woke up in bed with pain across her lower abdomen, got out of bed and felt an sudden hot flush before losing consciousness and hitting her head on the nightstand on her way down. Other than these two episodes, no other loss of consciousness. She does not usually feel lightheaded when getting up out of a chair. She has a history of paroxysmal afib but is usually very aware of these episodes which come with a fast pounding heart sensation. She does not have severe headaches, no changes in vision, chest pain or palpitations at home. This morning, while laying down in the IM bed, she felt her heart pounding fast and had 8/10 chest pain in sternal area and left chest without radiation. She also had SOB and a feeling of heaviness on her chest lasting about 30 min. She was given sublingual nitroglycerin which resolved her symptoms. Currently she is still SOB, feeling like she cannot take a full breath. No headache other than the site of her laceration, no changes in vision, no chest pain, cough, or palpitations. Allergies Allergy/AdvReac Type Severity Reaction Status Date / Time adhesive Allergy Unknown RASH, Verified 02/29/20 20:29 REDDNESS AT SITE codeine Allergy Unknown RASH, Verified 02/29/20 20:29 SEVERE ITCHING metronidazole Allergy Unknown SEVERE Verified 02/29/20 20:29 YEAST/VAGINAL INFX morphine Allergy Unknown IRREGULAR Verified 02/29/20 20:30 HEART RATE, EXTREME SEDATION propoxyphene AdvReac Unknown A-FIB Verified 02/29/20 20:30 Home Medications Medication Instructions Recorded Confirmed Type atorvastatin [Lipitor] 20 mg PO HS 01/30/18 02/29/20 History lisinopril 5 mg PO QAM 01/30/18 02/29/20 History omeprazole 20 mg PO QAM 01/30/18 02/29/20 History verapamil 240 mg PO QPM 01/30/18 02/29/20 History melatonin 10 mg tablet 10 mg PO HS tab 10/26/18 02/29/20 History apixaban [Eliquis] 5 mg PO BID 12/31/19 02/29/20 History calcium carbonate [Calcium 600] 600 mg PO 3XWK 12/31/19 02/29/20 History diphenhydramine HCl [Sleep Aid 25 mg PO HS PRN 12/31/19 02/29/20 History (diphenhydramine)] glucosamine HCl-vitamin D3 1 tab PO 3XWK 12/31/19 02/29/20 History magnesium oxide 400 mg PO QAM 12/31/19 02/29/20 History metoprolol succinate 12.5 mg PO QAM 12/31/19 02/29/20 History omega-3 fatty acids [[place] 3] 2 cap PO BID 12/31/19 02/29/20 History amoxicillin 500 mg tablet 2,000 mg PO ONCE PRN #4 tab 01/09/20 02/29/20 Rx methylprednisolone 4 mg tablets in 4 mg PO UD #1 packet 02/28/20 02/29/20 Rx a dose pack Past Med/Surg History Medical History 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 Dysarthria Rectal bleeding Status post lung surgery (08/03/12) TIA (transient ischemic attack) Surgical History H/O section H/O hemorrhoidectomy History of lung surgery Hx of cholecystectomy Family History Other Abdominal aortic aneurysm Stroke Social History Smoking Status: Never smoker Second Hand Exposure: No; Do You Dip or Chew Tobacco: No; Tobacco Cessation Education Requested by Patient: No Hx Alcohol Use: Yes Alcohol type: wine Hx Substance Use: No Preferred Language: Montene[place]in Communication Ability: Effective Talent 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 Operations Manager Required: No Beliefs That Will Affect Care: Taoist Current Living Situation: Spouse Other Information That Helps Us Care for You: No Feels Safe at Home: Yes Safety Concerns: Feels Safe At This Time Assistive Devices: Glasses Review of Systems + weakness no worsening vision + dyspnea; no cough no chest pain, no radiating jaw, neck or arm pain, no lightheadedness, no syncope, no edema and no calf pain no abdominal pain and no change in bowel habits no joint pain no nail changes no dizziness, no syncope, no headache(s) and no confusion Physical Exam Constitutional: well developed and well nourished; no acute distress Respiratory: normal respiratory effort; does not use accessory muscles and no cough Auscultation: + crackles (left lower lobe); no egophony Cardiovascular: Rate/Rhythm: regular rate and regular rhythm Heart Sounds: normal S1, normal S2 and + murmur (systolic grade 3, loudest at tricuspid area) Vessels: posterior tibial pulses present; no carotid bruit Extremities: no calf tenderness and no edema Neurologic: CN II, III, IV, and intact. Others not tested. Psychiatric: A+Ox3, euthymic affect Results & Data ([facility]) Vital Signs (Past 12 Hours) Vital Signs Temp Pulse Pulse Pulse Resp BP Pulse Ox 03/01/20 07:59 36.4 C L 74 16 114/64 94 03/01/20 05:48 36.6 C 81 20 102/61 93 03/01/20 03:12 36.4 C L 80 18 119/63 94 02/29/20 22:33 36.5 C 85 20 112/68 92 02/29/20 22:19 87 02/29/20 21:48 36.3 C L 95 H 94 H 20 128/64 95 Code Status & VTE Plan VTE Prophylaxis Plan VTE Prophylaxis will be ordered: Yes
--- NOTE | 2020-03-01 13:35 | Cardiology Consultation ---
Date of Consultation March 01, 2020 Assessment & Plan (1) Syncope: (2) Acute UTI: (3) History of TIA (transient ischemic attack): (4) HTN (hypertension): (5) Hyperlipidemia: (6) Atrial fibrillation with rapid ventricular response: (7) LBBB (left bundle branch block): Given the clinical presentation I believe this represents orthostatic syncope complicated by acute UTI. Orthostatic vitals will be checked and she will be given gentle IV fluids. Continue to monitor on telemetry overnight for any arrhythmias. We will also recheck echocardiogram to evaluate for any new wall motion abnormalities or progression of her underlying valvular disease. We will hold off any medication changes at this time. History of Present Illness Reason for Consultation: Syncope Requesting Physician: Dr. Talley Attending Physician: Mirza Guevara MD History of Present Illness It was my pleasure to see Mrs. Payan in cardiac consultation today March 01, 2020. She is a very pleasant 89-year-old woman who presented to [facility] on 02/29/2020 with complaints of a syncopal event. Patient states that she was at home watching television when she stood up from her chair and lost consciousness. Her witnessed this event and denies any prodrome to her syncopized. He reports that she was only out for a moment or 2. Prior to this event the patient had been complaining of dysuria for 2 days. She denies experiencing any cardiac complaints of chest pain, shortness of breath, palpitations, lightheadedness or dizziness. She does not remember the event but denies any cardiac symptoms prior to or immediately afterwards. She has been compliant with her medications at home. Past medical history as per outpatient cardiology note: 1. Longstanding hypertension 2. Chronic left bundle branch block 3. History of cerebral carotid artery aneurysm clipping 1988 4. Single episode transient atrial flutter post operatively 1988 5. Hyperlipidemia 6. Cardiac catheterization November 2010 without obstructive coronary disease 7. TIA with transient aphasia June of 2017 8. Paroxysmal atrial fibrillation with hospitalization November 07, 2019 with rapid response Allergies Allergy/AdvReac Type Severity Reaction Status Date / Time adhesive Allergy Unknown RASH, Verified 02/29/20 20:29 REDDNESS AT SITE codeine Allergy Unknown RASH, Verified 02/29/20 20:29 SEVERE ITCHING metronidazole Allergy Unknown SEVERE Verified 02/29/20 20:29 YEAST/VAGINAL INFX morphine Allergy Unknown IRREGULAR Verified 02/29/20 20:30 HEART RATE, EXTREME SEDATION propoxyphene AdvReac Unknown A-FIB Verified 02/29/20 20:30 Home Medications Medication Instructions Recorded Confirmed Type atorvastatin [Lipitor] 20 mg PO HS 01/30/18 02/29/20 History lisinopril 5 mg PO QAM 01/30/18 02/29/20 History omeprazole 20 mg PO QAM 01/30/18 02/29/20 History verapamil 240 mg PO QPM 01/30/18 02/29/20 History melatonin 10 mg tablet 10 mg PO HS tab 10/26/18 02/29/20 History apixaban [Eliquis] 5 mg PO BID 12/31/19 02/29/20 History calcium carbonate [Calcium 600] 600 mg PO 3XWK 12/31/19 02/29/20 History diphenhydramine HCl [Sleep Aid 25 mg PO HS PRN 12/31/19 02/29/20 History (diphenhydramine)] glucosamine HCl-vitamin D3 1 tab PO 3XWK 12/31/19 02/29/20 History magnesium oxide 400 mg PO QAM 12/31/19 02/29/20 History metoprolol succinate 12.5 mg PO QAM 12/31/19 02/29/20 History omega-3 fatty acids [[place] 3] 2 cap PO BID 12/31/19 02/29/20 History amoxicillin 500 mg tablet 2,000 mg PO ONCE PRN #4 tab 01/09/20 02/29/20 Rx methylprednisolone 4 mg tablets in 4 mg PO UD #1 packet 02/28/20 02/29/20 Rx a dose pack Patient History Medical History (Updated 03/01/20 @ 18:00 by Angel Dennis DO) 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 Dysarthria Rectal bleeding Status post lung surgery (08/03/12) TIA (transient ischemic attack) Surgical History H/O section H/O hemorrhoidectomy History of lung surgery Hx of cholecystectomy Family History Other Abdominal aortic aneurysm Stroke Social History Smoking Status: Never smoker Second Hand Exposure: No; Do You Dip or Chew Tobacco: No; Tobacco Cessation Education Requested by Patient: No Hx Alcohol Use: Yes Alcohol type: wine Hx Substance Use: No Preferred Language: Azeri Communication Ability: Effective Director Of Guidance In [employer] Required: No Beliefs That Will Affect Care: Synagogue marital status: Current Living Situation: Spouse Other Information That Helps Us Care for You: No Feels Safe at Home: Yes Safety Concerns: Feels Safe At This Time Assistive Devices: Glasses Review of Systems Review of Systems: All systems reviewed & are unremarkable except as noted in HPI & below Physical Exam Physical Exam: General: Awake, alert and oriented x 3. No acute distress. HEENT: Normocephalic, atraumatic. Pupils equal, round and reactive to light and accommodation. Extraocular muscles are intact. Anicteric sclera. Moist mucous membranes. Neck: No JVD. No bruit. Cardiovascular: Regular. Positive S-4. Normal S-1 and S-2. No S-3. No murmurs or rubs. Pulmonary: Clear to auscultation B/L. No rales, rhonchi or wheezing Abdomen: Bowel sounds x 4, soft. No rebound, guarding or tenderness. No organomegaly. Extremities: No clubbing, cyanosis or edema. +2 pedal pulses bilaterally. Skin: Warm and dry. Results & Data ([facility]) Vital Signs (Past 12 Hours) Vital Signs Temp Pulse Pulse Pulse Resp BP Pulse Ox 03/01/20 12:14 76 03/01/20 11:54 36.7 C 75 16 123/64 93 03/01/20 07:59 36.4 C L 74 16 114/64 94 03/01/20 05:48 36.6 C 81 20 102/61 93 03/01/20 03:12 36.4 C L 80 18 119/63 94 Laboratory Results Laboratory Results - last 24 hr 02/29/20 02/29/20 02/29/20 17:30 17:55 18:15 WBC RBC Hgb Hct MCV MCH MCHC RDW Std Deviation RDW Coeff of Coleman Plt Count MPV Immature Gran % (Auto) Neut % (Auto) Lymph % (Auto) [place] % (Auto) Eos % (Auto) Baso % (Auto) Neut # (Auto) Lymph # (Auto) [place] # (Auto) Eos # (Auto) Baso # (Auto) Immature Gran # (Auto) APTT PTT Ratio D-Dimer Sodium 134 L Potassium 3.9 Chloride 104 Carbon Dioxide 27 Anion Gap 3.0 BUN 13 Creatinine 0.76 Est Cr Clr Drug Dosing 45.0 Est GFR ( Amer) 81.7 Est GFR (Non-Af Amer) 70.5 BUN/Creatinine Ratio 17.1 Glucose 149 H Estimat Average Glucose Hemoglobin A1c Calcium 9.3 Magnesium 2.4 Troponin I < 0.015 TSH Urine Color Yellow Urine Appearance Cloudy A Urine pH 7.5 Ur Specific [place] 1.012 Urine Protein Negative Urine Glucose (UA) Negative Urine Ketones Negative Urine Blood 1+ H Urine Nitrite Positive A Urine Bilirubin Negative Urine Urobilinogen Negative Ur Leukocyte Esterase 3+ H Urine WBC (Auto) >30 H Urine RBC (Auto) 0-4 U Hyaline Cast (Auto) 5-10 H U Epithel Cells (Auto) 0-5 Urine Bacteria (Auto) 2+ H COVID-19 Eval Order SARS-CoV-2, RNA, NAAT Blood Type Antibody Screen 02/29/20 02/29/20 02/29/20 18:15 19:28 19:28 WBC RBC Hgb Hct MCV MCH MCHC RDW Std Deviation RDW Coeff of Coleman Plt Count MPV Immature Gran % (Auto) Neut % (Auto) Lymph % (Auto) [place] % (Auto) Eos % (Auto) Baso % (Auto) Neut # (Auto) Lymph # (Auto) [place] # (Auto) Eos # (Auto) Baso # (Auto) Immature Gran # (Auto) APTT PTT Ratio D-Dimer Sodium Potassium Chloride Carbon Dioxide Anion Gap BUN Creatinine Est Cr Clr Drug Dosing Est GFR ( Amer) Est GFR (Non-Af Amer) BUN/Creatinine Ratio Glucose Estimat Average Glucose Hemoglobin A1c Calcium Magnesium Troponin I TSH 1.010 Urine Color Urine Appearance Urine pH Ur Specific [place] Urine Protein Urine Glucose (UA) Urine Ketones Urine Blood Urine Nitrite Urine Bilirubin Urine Urobilinogen Ur Leukocyte Esterase Urine WBC (Auto) Urine RBC (Auto) U Hyaline Cast (Auto) U Epithel Cells (Auto) Urine Bacteria (Auto) COVID-19 Eval [facility] SARS-CoV-2, RNA, NAAT NEGATIVE Blood Type Antibody Screen 03/01/20 03/01/2003/01/21 05:56 05:56 05:56 WBC 6.83 RBC 4.73 Hgb 13.3 Hct 38.8 MCV 82.0 MCH 28.1 MCHC 34.3 RDW Std Deviation 40.7 RDW Coeff of Coleman 13.5 Plt Count 308 MPV 9.3 Immature Gran % (Auto) 0.1 Neut % (Auto) 86.7 Lymph % (Auto) 12.2 [place] % (Auto) 1.0 Eos % (Auto) 0.0 Baso % (Auto) 0.0 Neut # (Auto) 5.92 Lymph # (Auto) 0.83 L [place] # (Auto) 0.07 L Eos # (Auto) 0.00 Baso # (Auto) 0.00 Immature Gran # (Auto) 0.01 APTT PTT Ratio D-Dimer Sodium 137 Potassium 3.9 Chloride 106 Carbon Dioxide 26 Anion Gap 5.0 BUN 12 Creatinine 0.58 L Est Cr Clr Drug Dosing 59.0 Est GFR ( Amer) 96.1 Est GFR (Non-Af Amer) 82.9 BUN/Creatinine Ratio 21.2 H Glucose 142 H Estimat Average Glucose Hemoglobin A1c Calcium 8.9 Magnesium Troponin I TSH Urine Color Urine Appearance Urine pH Ur Specific [place] Urine Protein Urine Glucose (UA) Urine Ketones Urine Blood Urine Nitrite Urine Bilirubin Urine Urobilinogen Ur Leukocyte Esterase Urine WBC (Auto) Urine RBC (Auto) U Hyaline Cast (Auto) U Epithel Cells (Auto) Urine Bacteria (Auto) COVID-19 Eval Order SARS-CoV-2, RNA, NAAT Blood Type O Positive Antibody Screen NEGATIVE 03/01/20 03/01/20 03/01/20 05:56 05:56 05:56 WBC RBC Hgb Hct MCV MCH MCHC RDW Std Deviation RDW Coeff of Coleman Plt Count MPV Immature Gran % (Auto) Neut % (Auto) Lymph % (Auto) [place] % (Auto) Eos % (Auto) Baso % (Auto) Neut # (Auto) Lymph # (Auto) [place] # (Auto) Eos # (Auto) Baso # (Auto) Immature Gran # (Auto) APTT 31.3 H PTT Ratio 1.1 D-Dimer Sodium Potassium Chloride Carbon Dioxide Anion Gap BUN Creatinine Est Cr Clr Drug Dosing Est GFR ( Amer) Est GFR (Non-Af Amer) BUN/Creatinine Ratio Glucose Estimat Average Glucose 126 Hemoglobin A1c 6.0 H Calcium Magnesium Troponin I < 0.015 TSH Urine Color Urine Appearance Urine pH Ur Specific [place] Urine Protein Urine Glucose (UA) Urine Ketones Urine Blood Urine Nitrite Urine Bilirubin Urine Urobilinogen Ur Leukocyte Esterase Urine WBC (Auto) Urine RBC (Auto) U Hyaline Cast (Auto) U Epithel Cells (Auto) Urine Bacteria (Auto) COVID-19 Eval Order SARS-CoV-2, RNA, NAAT Blood Type Antibody Screen 03/01/20 13:42 WBC RBC Hgb Hct MCV MCH MCHC RDW Std Deviation RDW Coeff of Coleman Plt Count MPV Immature Gran % (Auto) Neut % (Auto) Lymph % (Auto) [place] % (Auto) Eos % (Auto) Baso % (Auto) Neut # (Auto) Lymph # (Auto) [place] # (Auto) Eos # (Auto) Baso # (Auto) Immature Gran # (Auto) APTT PTT Ratio D-Dimer 380 Sodium Potassium Chloride Carbon Dioxide Anion Gap BUN Creatinine Est Cr Clr Drug Dosing Est GFR ( Amer) Est GFR (Non-Af Amer) BUN/Creatinine Ratio Glucose Estimat Average Glucose Hemoglobin A1c Calcium Magnesium Troponin I TSH Urine Color Urine Appearance Urine pH Ur Specific [place] Urine Protein Urine Glucose (UA) Urine Ketones Urine Blood Urine Nitrite Urine Bilirubin Urine Urobilinogen Ur Leukocyte Esterase Urine WBC (Auto) Urine RBC (Auto) U Hyaline Cast (Auto) U Epithel Cells (Auto) Urine Bacteria (Auto) COVID-19 Eval Order SARS-CoV-2, RNA, NAAT Blood Type Antibody Screen Medications Administered Current Inpatient Medications Acetaminophen (Acetaminophen 325 Mg Tab) 650 mg PO Q4H PRN PRN Reason: Pain or Fever Stop: 03/30/20 21:57 Atorvastatin Calcium (Atorvastatin 20 Mg Tab) 20 mg PO HS BERNARDINO Stop: 03/30/20 22:14 Last Admin: 02/29/20 22:49 Dose: 20 mg Documented by: Fish Oil ([place]-3 (Purified Fish Oil) 1 Gm Cap) 1 gm PO BID BERNARDINO Stop: 03/31/20 08:59 Last Admin: 03/01/20 08:08 Dose: 1 gm Documented by: Promethazine HCl 6.25 mg/ (Sodium Chloride) 50.25 mls @ 201 mls/hr IV Q6H PRN PRN Reason: Nausea And Vomiting Stop: 03/30/20 21:57 Ceftriaxone Sodium 1,000 mg/ (Dextrose) 50 mls @ 100 mls/hr IV Q24H [facility]; Protocol Stop: 03/11/20 17:59 Last Admin: 03/01/20 17:35 Dose: 100 mls/hr Documented by: Lisinopril ([facility] 5 Mg Tab) [facility] Stop: 03/31/20 08:59 Last Admin: 03/01/20 08:09 Dose: 5 mg Documented by: Melatonin (Melatonin 3 Mg Tab) 9 mg PO [facility]; Protocol Stop: 03/31/20 20:59 Methylprednisolone (Methylprednisolone 4 Mg Tab) 4 mg PO 0700,1300,1800 [facility] Stop: 03/01/20 18:01 Last Admin: 03/01/20 17:35 Dose: 4 mg Documented by: Methylprednisolone (Methylprednisolone 4 Mg Tab) 8 mg PO HS [facility] Stop: 03/01/20 21:01 Methylprednisolone (Methylprednisolone 4 Mg Tab) 4 mg PO 0700,1300,1800,2100 [facility] Stop: 03/02/20 21:01 Methylprednisolone (Methylprednisolone 4 Mg Tab) 4 mg PO 0700,1300,2100 [facility] Stop: 03/03/20 21:01 Methylprednisolone (Methylprednisolone 4 Mg Tab) 4 mg PO 0700,2100 [facility] Stop: 03/04/20 21:01 Methylprednisolone (Methylprednisolone 4 Mg Tab) 4 mg PO 0700 [facility] Stop: 03/05/20 07:01 Metoprolol Succinate (Metoprolol Succ 25mg Ext Rel Tab) 12.5 mg PO [facility] Stop: 03/31/20 08:59 Last Admin: 03/01/20 08:07 Dose: 12.5 mg Documented by: Pantoprazole Sodium (Pantoprazole 40 Mg Tab) 40 mg PO [facility]; Protocol Stop: 03/31/20 08:59 Last Admin: 03/01/20 08:07 Dose: 40 mg Documented by: Polyethylene Glycol (Polyethylene (Miralax) 17 Gm Pack) 17 gm PO DAILY PRN PRN Reason: Constipation Stop: 03/31/20 16:25 Tramadol HCl (Tramadol Hcl 50 Mg Tablet) 25 - 50 mg PO Q4H PRN PRN Reason: Pain Stop: 03/30/20 21:57 Verapamil HCl (Verapamil Hcl 240 Mg Tabcr) 240 mg PO QPM [facility] Stop: 03/30/20 22:14 Last Admin: 02/29/20 22:50 Dose: 240 mg Documented by: (1) Syncope Syncope type: unspecified Qualified Code(s): R55 - Syncope and collapse
[2020-03-01 14:07] LABS: D Dimer 380 ug/L FEU (0-500)
[2020-03-01] MEDS ORDERED: POLYETHYLENE (MIRALAX) 17 GM PACK PO PRN (16:26)
--- NOTE | 2020-03-01 17:55 | Hospitalist Progress Note ---
Date of Service March 01, 2020 Assessment & Plan (1) Syncope: Rule out orthostasis Rule out predisposing arrhythmia given cardiac history, conduction disease (chronic LAFB, LBBB, prolonged QTC) Acute PE unlikely -- Orthostatic VS ordered -- Echo: no significant change compared to 10/2019 mild concentric LVH, EF 60-65% Grade 1 diastolic dysfunction [employer] consulted -- D dimer negative, PE unlikely Scalp hematoma secondary to fall, syncope -- CT head: IMPRESSION: 1. Right-sided scalp hematoma 2. No acute intracranial findings -- healing well E coli UTI -- does not meed sepsis criteria -- likely contributing to Syncope episode PAF on Eliquis -- sinus rhythm -- Eliquis on hold in light of scalp hematoma hx PVD, TIA as per records lung cancer R sp surgery 1990s biceps tendinitis ongoing steroid Rx Steroid-induced hyperglycemia rule out DM -- A1c 6.0 DVT prophylaxis. SCDs while Eliquis on hold Full code plan of care discussed with patient in detail and at length all questions answered She is understanding and agreeable, comfortable plan of care Admission and Anticipated Discharge Date Admission Date: February 29, 2020 Subjective ff up for syncope seen resting in bed, comfortable, not in distress no recurrence of syncope or presyncope while admitted noted some lower chest discomfort, started overnight, partially relieved by SL Nitro intermittent since this morning no dyspnea, palpitations, dizziness no abdominal pain, nausea/vomiting, fever/chills no headache, neuro deficits no other symptoms Review of Systems Review of Systems: All systems reviewed & are unremarkable except as noted in Subjective Physical Exam Physical Exam: General- oriented x 3, not in distress, speaks in sentences with no effort or accessory muscle use Head- laceration on the scalp left parietal - healing well, no signs of bleeding Eyes- anicteric Neck- no JVD Lungs- clear breath sounds bilaterally, no rales/wheezes Heart- normal rate, regular rhythm; (+) grade 2-3/6 holosystolic murmur Abdomen- normal bowel sounds, nondistended, soft, nontender Extremities- no pretibial edema, no calf tenderness Neuro- alert, oriented x 3; no gross focal neurologic deficits Skin- warm & dry Results & Data Results & Data ([facility]) Vital Signs (Past 12 Hours) Vital Signs Temp Pulse Pulse Resp BP BP Pulse Ox 03/01/20 16:33 78 03/01/20 15:35 36.7 C 72 18 106/60 94 03/01/20 12:14 76 03/01/20 11:54 36.7 C 75 16 123/64 93 03/01/20 07:59 36.4 C L 74 16 114/64 94 Laboratory Results Laboratory Results - last 24 hr 02/29/20 02/29/20 02/29/20 17:30 17:55 18:15 WBC RBC Hgb Hct MCV MCH MCHC RDW Std Deviation RDW Coeff of Coleman Plt Count MPV Immature Gran % (Auto) Neut % (Auto) Lymph % (Auto) [place] % (Auto) Eos % (Auto) Baso % (Auto) Neut # (Auto) Lymph # (Auto) [place] # (Auto) Eos # (Auto) Baso # (Auto) Immature Gran # (Auto) APTT PTT Ratio D-Dimer Sodium 134 L Potassium 3.9 Chloride 104 Carbon Dioxide 27 Anion Gap 3.0 BUN 13 Creatinine 0.76 Est Cr Clr Drug Dosing 45.0 Est GFR ( Amer) 81.7 Est GFR (Non-Af Amer) 70.5 BUN/Creatinine Ratio 17.1 Glucose 149 H Estimat Average Glucose Hemoglobin A1c Calcium 9.3 Magnesium 2.4 Troponin I < 0.015 TSH Urine Color Yellow Urine Appearance Cloudy A Urine pH 7.5 Ur Specific [place] 1.012 Urine Protein Negative Urine Glucose (UA) Negative Urine Ketones Negative Urine Blood 1+ H Urine Nitrite Positive A Urine Bilirubin Negative Urine Urobilinogen Negative Ur Leukocyte Esterase 3+ H Urine WBC (Auto) >30 H Urine RBC (Auto) 0-4 U Hyaline Cast (Auto) 5-10 H U Epithel Cells (Auto) 0-5 Urine Bacteria (Auto) 2+ H COVID-19 Eval Order SARS-CoV-2, RNA, NAAT Blood Type Antibody Screen 02/29/20 02/29/20 02/29/20 18:15 19:28 19:28 WBC RBC Hgb Hct MCV MCH MCHC RDW Std Deviation RDW Coeff of [place] Plt Count MPV Immature Gran % (Auto) Neut % (Auto) Lymph % (Auto) [place] % (Auto) Eos % (Auto) Baso % (Auto) Neut # (Auto) Lymph # (Auto) [place] # (Auto) Eos # (Auto) Baso # (Auto) Immature Gran # (Auto) APTT PTT Ratio D-Dimer Sodium Potassium Chloride Carbon Dioxide Anion Gap BUN Creatinine Est Cr Clr Drug Dosing Est GFR ( Amer) Est GFR (Non-Af Amer) BUN/Creatinine Ratio Glucose Estimat Average Glucose Hemoglobin A1c Calcium Magnesium Troponin I TSH 1.010 Urine Color Urine Appearance Urine pH Ur Specific [place] Urine Protein Urine Glucose (UA) Urine Ketones Urine Blood Urine Nitrite Urine Bilirubin Urine Urobilinogen Ur Leukocyte Esterase Urine WBC (Auto) Urine RBC (Auto) U Hyaline Cast (Auto) U Epithel Cells (Auto) Urine Bacteria (Auto) COVID-19 Eval Order Covid19 [facility] SARS-CoV-2, RNA, NAAT NEGATIVE Blood Type Antibody Screen 03/01/20 03/01/20 03/01/20 05:56 05:56 05:56 WBC 6.83 RBC 4.73 Hgb 13.3 Hct 38.8 MCV 82.0 MCH 28.1 MCHC 34.3 RDW Std Deviation 40.7 RDW Coeff of [place] 13.5 Plt Count 308 MPV 9.3 Immature Gran % (Auto) 0.1 Neut % (Auto) 86.7 Lymph % (Auto) 12.2 [place] % (Auto) 1.0 Eos % (Auto) 0.0 Baso % (Auto) 0.0 Neut # (Auto) 5.92 Lymph # (Auto) 0.83 L [place] # (Auto) 0.07 L Eos # (Auto) 0.00 Baso # (Auto) 0.00 Immature Gran # (Auto) 0.01 APTT PTT Ratio D-Dimer Sodium 137 Potassium 3.9 Chloride 106 Carbon Dioxide 26 Anion Gap 5.0 BUN 12 Creatinine 0.58 L Est Cr Clr Drug Dosing 59.0 Est GFR ( Amer) 96.1 Est GFR (Non-Af Amer) 82.9 BUN/Creatinine Ratio 21.2 H Glucose 142 H Estimat Average Glucose Hemoglobin A1c Calcium 8.9 Magnesium Troponin I TSH Urine Color Urine Appearance Urine pH Ur Specific [place] Urine Protein Urine Glucose (UA) Urine Ketones Urine Blood Urine Nitrite Urine Bilirubin Urine Urobilinogen Ur Leukocyte Esterase Urine WBC (Auto) Urine RBC (Auto) U Hyaline Cast (Auto) U Epithel Cells (Auto) Urine Bacteria (Auto) COVID-19 Eval Order SARS-CoV-2, RNA, NAAT Blood Type O Positive Antibody Screen NEGATIVE 03/01/20 03/01/20 03/01/20 05:56 05:56 05:56 WBC RBC Hgb Hct MCV MCH MCHC RDW Std Deviation RDW Coeff of [place] Plt Count MPV Immature Gran % (Auto) Neut % (Auto) Lymph % (Auto) [place] % (Auto) Eos % (Auto) Baso % (Auto) Neut # (Auto) Lymph # (Auto) [place] # (Auto) Eos # (Auto) Baso # (Auto) Immature Gran # (Auto) APTT 31.3 H PTT Ratio 1.1 D-Dimer Sodium Potassium Chloride Carbon Dioxide Anion Gap BUN Creatinine Est Cr Clr Drug Dosing Est GFR ( Amer) Est GFR (Non-Af Amer) BUN/Creatinine Ratio Glucose Estimat Average Glucose 126 Hemoglobin A1c 6.0 H Calcium Magnesium Troponin I < 0.015 TSH Urine Color Urine Appearance Urine pH Ur Specific [place] Urine Protein Urine Glucose (UA) Urine Ketones Urine Blood Urine Nitrite Urine Bilirubin Urine Urobilinogen Ur Leukocyte Esterase Urine WBC (Auto) Urine RBC (Auto) U Hyaline Cast (Auto) U Epithel Cells (Auto) Urine Bacteria (Auto) COVID-19 Eval Order SARS-CoV-2, RNA, NAAT Blood Type Antibody Screen 03/01/20 13:42 WBC RBC Hgb Hct MCV MCH MCHC RDW Std Deviation RDW Coeff of [place] Plt Count MPV Immature Gran % (Auto) Neut % (Auto) Lymph % (Auto) [place] % (Auto) Eos % (Auto) Baso % (Auto) Neut # (Auto) Lymph # (Auto) [place] # (Auto) Eos # (Auto) Baso # (Auto) Immature Gran # (Auto) APTT PTT Ratio D-Dimer 380 Sodium Potassium Chloride Carbon Dioxide Anion Gap BUN Creatinine Est Cr Clr Drug Dosing Est GFR ( Amer) Est GFR (Non-Af Amer) BUN/Creatinine Ratio Glucose Estimat Average Glucose Hemoglobin A1c Calcium Magnesium Troponin I TSH Urine Color Urine Appearance Urine pH Ur Specific [place] Urine Protein Urine Glucose (UA) Urine Ketones Urine Blood Urine Nitrite Urine Bilirubin Urine Urobilinogen Ur Leukocyte Esterase Urine WBC (Auto) Urine RBC (Auto) U Hyaline Cast (Auto) U Epithel Cells (Auto) Urine Bacteria (Auto) COVID-19 Eval Order SARS-CoV-2, RNA, NAAT Blood Type Antibody Screen (1) Syncope Syncope type: unspecified Qualified Code(s): R55 - Syncope and collapse
[2020-03-01] MEDS ORDERED: cefTRIAXone SODIUM 1,000 MG in DEXTROSE 5% 50 ML IV SCH (18:00)
[2020-03-01] MEDS: ATORVASTATIN 20 MG TAB PO SCH (20:00)
[2020-03-01] MEDS: VERAPAMIL HCL 240 MG TABCR PO SCH (20:00)
[2020-03-01] MEDS ORDERED: methylPREDNISolone 4 MG TAB PO SCH (21:00)
[2020-03-01] MEDS ORDERED: MELATONIN 3 MG TAB PO SCH (21:00)
[2020-03-02] MEDS: methylPREDNISolone 4 MG TAB PO SCH ×2 (06:20→13:17)
[2020-03-02] MEDS: PANTOprazole 40 MG TAB PO SCH (08:06)
[2020-03-02] MEDS: OMEGA-3 (PURIFIED FISH OIL) 1 GM CAP PO SCH (08:07)
[2020-03-02] MEDS: METOPROLOL SUCC 25MG EXT REL TAB PO SCH (08:09)
[2020-03-02] MEDS: lisinopril 5 MG TAB PO SCH (08:10)
--- NOTE | 2020-03-02 13:00 | Cardiology Progress Note ---
Date of Service March 02, 2020 Assessment & Plan (1) Syncope: (2) Acute UTI: (3) History of TIA (transient ischemic attack): (4) HTN (hypertension): (5) Hyperlipidemia: (6) Atrial fibrillation with rapid ventricular response: (7) LBBB (left bundle branch block): Once again reviewed the pathophysiology of orthostatic hypotension and syncope in great detail. Counseled on the need for increased fluid intake especially during times of possible infection. Currently normal sinus rhythm and vitals stable. May consider discontinuation of lisinopril. Patient not scheduled to see Dr. Bay until September. We will need follow-up in cardiology in 1 to 2 weeks after discharge. Okay to DC to home from a cardiac standpoint. Admission and Anticipated Discharge Date Admission Date: February 29, 2020 Subjective Patient seen and examined, chart reviewed. Has many questions as to why she lost consciousness as well as a previous episode that occurred when she awoke from bed with abdominal pain and abbi out of bed. Denies any chest pain, shortness of breath, lightheadedness or dizziness. States that she does not drink as much water as she knows she should throughout the day. Telemetry reviewed: Normal sinus rhythm without arrhythmia or significant ectopy. Review of Systems Review of Systems: All systems reviewed & are unremarkable except as noted in HPI & below Physical Exam Physical Exam: General: Awake, alert and oriented x 3. No acute distress. HEENT: Normocephalic, atraumatic. Pupils equal, round and reactive to light and accommodation. Extraocular muscles are intact. Anicteric sclera. Moist mucous membranes. Neck: No JVD. No bruit. Cardiovascular: Regular. Positive S-4. Normal S-1 and S-2. No S-3. No murmurs or rubs. Pulmonary: Clear to auscultation B/L. No rales, rhonchi or wheezing Abdomen: Bowel sounds x 4, soft. No rebound, guarding or tenderness. No organomegaly. Extremities: No clubbing, cyanosis or edema. +2 pedal pulses bilaterally. Skin: Warm and dry. Results & Data ([facility]) Vital Signs (Past 12 Hours) Vital Signs Temp Pulse Pulse Resp BP BP Pulse Ox 03/02/20 11:30 36.5 C 74 16 120/60 94 03/02/20 09:35 75 03/02/20 07:30 36.3 C L 86 18 123/70 94 03/02/20 03:00 36.6 C 60 20 89/48 L 92 (1) Syncope Syncope type: unspecified Qualified Code(s): R55 - Syncope and collapse
--- NOTE | 2020-03-02 13:01 | Hospitalist Progress Note ---
Date of Service March 02, 2020 Assessment & Plan (1) Syncope: -- likely secondary to Orthostasis in the setting of E coli UTI -- Echo: no significant change compared to 10/2019 mild concentric LVH, EF 60-65% Grade 1 diastolic dysfunction [employer] consulted, Dr. Dennis no other cardiac testing recommended at this point -- D dimer negative, PE unlikely -- given IV fluids management of UTI per below -- feels much better Scalp hematoma secondary to fall, syncope -- CT head: IMPRESSION: 1. Right-sided scalp hematoma 2. No acute intracranial findings -- healing well resume Eliquis 03/03/20 E coli UTI -- does not meet sepsis criteria -- likely contributing to Syncope episode -- received Ceftriaxone IV x 3 days will d/c on Cefdinir 300mg BID x 5 days ff up with PCP next week PAF on Eliquis -- sinus rhythm -- Eliquis held resume Eliquis 03/03/20 hx PVD, TIA as per records lung cancer R sp surgery 1990s biceps tendinitis ongoing steroid Rx Steroid-induced hyperglycemia rule out DM -- A1c 6.0 plan of care discussed with patient in detail and at length all questions answered She is understanding and agreeable, comfortable plan of care d/c home today ff up with PCP in 1 week ff up with [employer] as scheduled Admission and Anticipated Discharge Date Admission Date: February 29, 2020 Subjective ff up syncope seen resting in bed, comfortable in good spirits states she feels much better overall no syncope/pre syncope ambulating in the room with no problems no dizziness, headache, chest pain, dyspnea, palpitations no abdominal pain, nausea/vomiting, dysuria no other symptoms Review of Systems Review of Systems: All systems reviewed & are unremarkable except as noted in Subjective Physical Exam Physical Exam: General- oriented x 3, not in distress, speaks in sentences with no effort or accessory muscle use Head- small wound on the right parietal area, with dermabond no bleeding Eyes- anicteric Neck- no JVD Lungs- clear BS BL Heart- normal rate, regular rhythm; no murmurs Abdomen- normal bowel sounds, nondistended, soft, nontender Extremities- no pretibial edema, no calf tenderness Neuro- alert, oriented x 3; no gross focal neurologic deficits Skin- warm & dry Results & Data Results & Data ([facility]) Vital Signs (Past 12 Hours) Vital Signs Temp Pulse Pulse Resp BP BP Pulse Ox 03/02/20 11:30 36.5 C 74 16 120/60 94 03/02/20 09:35 75 03/02/20 07:30 36.3 C L 86 18 123/70 94 03/02/20 03:00 36.6 C 60 20 89/48 L 92 Laboratory Results Laboratory Results - last 24 hr 03/01/20 13:42 D-Dimer 380 (1) Syncope Syncope type: unspecified Qualified Code(s): R55 - Syncope and collapse
[2020-03-02] MEDS ORDERED: cefTRIAXone SODIUM 1,000 MG in DEXTROSE 5% 50 ML IV SCH (14:00)
--- NOTE | 2020-03-02 15:00 | Electrocardiogram Report ---
Test Reason : Blood Pressure : / mmHG Vent. Rate : 088 BPM Atrial Rate : 088 BPM P-R Int : 158 ms QRS Dur : 142 ms QT Int : 430 ms P-R-T Axes : 071 -58 090 degrees QTc Int : 520 ms Sinus rhythm with occasional Premature supraventricular complexes Left axis deviation Left bundle branch block Abnormal ECG When compared with ECG of 08-NOV-2019 06:27, Premature supraventricular complexes are now Present QT has lengthened Confirmed by Syed Arora ([id number]) on 03/02/2020 3:00:08 PM Referred By: REFERRED SELF Confirmed By:Syed Arora
--- NOTE | 2020-03-02 15:01 | Electrocardiogram Report ---
Test Reason : Blood Pressure : / mmHG Vent. Rate : 090 BPM Atrial Rate : 090 BPM P-R Int : 176 ms QRS Dur : 144 ms QT Int : 406 ms P-R-T Axes : 069 -49 093 degrees QTc Int : 496 ms Normal sinus rhythm Left axis deviation Left bundle branch block Abnormal ECG When compared with ECG of 29-FEB-2020 17:18, (unconfirmed) Premature supraventricular complexes are no longer Present Confirmed by Syed Arora ([id number]) on 03/02/2020 3:01:06 PM Referred By: REFERRED SELF Confirmed By:Syed Arora
--- NOTE | 2020-03-02 16:14 | Electrocardiogram Report ---
Test Reason : Blood Pressure : / mmHG Vent. Rate : 082 BPM Atrial Rate : 082 BPM P-R Int : 160 ms QRS Dur : 142 ms QT Int : 424 ms P-R-T Axes : 067 -52 097 degrees QTc Int : 495 ms Normal sinus rhythm Left axis deviation Left bundle branch block Abnormal ECG When compared with ECG of 29-FEB-2020 17:51, (unconfirmed) No significant change was found Confirmed by Syed Arora ([id number]) on 03/02/2020 4:14:04 PM Referred By: REFERRED SELF Confirmed By:Syed Arora
--- NOTE | 2020-03-02 17:05 | Discharge Summary ---
Date of Service March 02, 2020 Admission HPI Per Admitting Provider Chief Complaint: Syncope Primary Care Provider: Chung Arrington DO History obtained from patient, family, and records. Medical history significant for lung cancer R sp surgery , CAD, PAF on Eliquis, hypertension, chronic LBBB, hx TIA as per records, PVD, biceps tendinitis ongoing steroid Rx. Last confinement October 2019 for A. fib with RVR. 2D echo showed LVH, EF 60 to 65%. Diastolic dysfunction, aortic valve sclerosis, trace mitral regurgitation. 2 days history of dysuria symptoms without fever, chills. Fair appetite. Patient had a syncopal event at home yesterday after she stood up from the table after working on a puzzle. No chest pain, no S OB. thinks patient may just have been out for a few moments as she was awake when he found her. No witnessed seizure episodes. Patient noted to have a bleeding posterior scalp wound. Possible episode possibly last year when patient went to the bathroom as per . No ER consultation at that time. Patient brought to the ER for evaluation. Given Ceftriaxone for UTI. MEDICAL HISTORY: As above. SURGERIES: Shoulder surgery, lung surgery, bowel surgery. Trigger finger release, MADISYN, carpal tunnel surgery, skin cancer surgery FAMILY HISTORY: heart disease. PERSONAL AND SOCIAL HISTORY: Nonsmoker. No chronic intake of ETOH intake. 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 Admission Exam Per Admitting Provider GENERAL: Comfortable, slightly anxious, no respiratory distress, pleasant, looks younger than stated age SKIN: Normal color, warm HEENT: Tender swelling posterior scalp, [place] palpebral conjunctivae, no ptosis, dry buccal mucosa NECK : Supple, no tenderness CHEST : CTA, no tenderness HEART : RRR, no obvious murmurs ABDOMEN: Some distention, nontender EXTREMITIES : No LE swelling/tenderness, minimal tenderness right forearm, no other conspicuous deformities noted NEUROLOGIC : Coherent, no facial asymmetry, no other gross focality Principal Diagnosis SYNCOPE Discharge Exam General- oriented x 3, not in distress, speaks in sentences with no effort or accessory muscle use Head- small wound on the right parietal area, with dermabond no bleeding Eyes- anicteric Neck- no JVD Lungs- clear BS BL Heart- normal rate, regular rhythm; no murmurs Abdomen- normal bowel sounds, nondistended, soft, nontender Extremities- no pretibial edema, no calf tenderness Neuro- alert, oriented x 3; no gross focal neurologic deficits Skin- warm & dry Discharge Data Allergies Allergy/AdvReac Type Severity Reaction Status Date / Time adhesive Allergy Unknown RASH, Verified 02/29/20 20:29 REDDNESS AT SITE codeine Allergy Unknown RASH, Verified 02/29/20 20:29 SEVERE ITCHING metronidazole Allergy Unknown SEVERE Verified 02/29/20 20:29 YEAST/VAGINAL INFX morphine Allergy Unknown IRREGULAR Verified 02/29/20 20:30 HEART RATE, EXTREME SEDATION propoxyphene AdvReac Unknown A-FIB Verified 02/29/20 20:30 Consultations 02/29/20 19:14 ED Decision to Admit Stat 02/29/20 20:56 Consult Cardiology Routine Ordered Studies 02/29/20 17:01 CT cervical spine wo con Stat FINDINGS: There is a multinodular thyroid gland. The largest nodule measures 14 mm. There is no apical pneumothorax. The prevertebral soft tissues are normal. No fractures or subluxations are visualized. There is reversal the normal cervical lordosis. There are multilevel degenerative changes IMPRESSION: No evidence of acute fracture or traumatic subluxation. CT head/brain wo con Stat FINDINGS: No intra or extra-axial mass lesions are visualized. There is no CT evidence of acute cortical infarction. There is no evidence of midline shift. There is no acute hemorrhage. No calvarial fractures are visualized. There are patchy white matter hypodensities likely on a small vessel basis. There is no evidence of pathologic ventricular dilatation. There is no evidence of acute sinusitis There is a right parietal scalp hematoma. There are postsurgical changes are prior left frontal craniotomy. 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 IMPRESSION: 1. Right-sided scalp hematoma 2. No acute intracranial findings CXR: FINDINGS: The cardiac and mediastinal contours remain stable. There is a stable 9 mm right apical nodule likely postinflammatory. Slight increase in markings within the right midlung zone laterally likely related to technical factors. If symptoms persist, a follow-up PA and lateral study be obtained. There is no failure.[ IMPRESSION: 1. Stable 9 mm right apical nodule. 2. Slightly prominent markings within the right midlung zone laterally, likely related to technical factors. If symptoms persist, a PA and lateral study could be obtained in follow-up. Hospital Course (1) Syncope: -- likely secondary to Orthostasis in the setting of E coli UTI -- Echo: no significant change compared to 10/2019 mild concentric LVH, EF 60-65% Grade 1 diastolic dysfunction Senior Facilities Manager consulted, Dr. Dennis no other cardiac testing recommended at this point -- D dimer negative, PE unlikely -- given IV fluids management of UTI per below -- feels much better d/c home ff up with PCP in 1 week Scalp hematoma secondary to fall, syncope -- CT head: IMPRESSION: 1. Right-sided scalp hematoma 2. No acute intracranial findings -- healing well resume Eliquis 03/03/20 E coli UTI -- does not meet sepsis criteria -- likely contributed to Syncope episode -- received Ceftriaxone IV x 3 days will d/c on Cefdinir 300mg BID x 5 days ff up with PCP next week PAF on Eliquis -- sinus rhythm -- Eliquis held for scalp hematoma resume Eliquis 03/03/20 Abnormal CXR FINDINGS: The cardiac and mediastinal contours remain stable. There is a stable 9 mm right apical nodule likely postinflammatory. Slight increase in markings within the right midlung zone laterally likely related to technical factors. If symptoms persist, a follow-up PA and lateral study be obtained. There is no failure. IMPRESSION: 1. Stable 9 mm right apical nodule. 2. Slightly prominent markings within the right midlung zone laterally, likely related to technical factors. If symptoms persist, a PA and lateral study could be obtained in follow-up. -- further work up and follow up as outpatient Multinodular Thyroid Gland -- seen on CT cervical spine There is a multinodular thyroid gland. The largest nodule measures 14 mm. There is no apical pneumothorax. -- further work up and follow up as outpatient IMPRESSION: No evidence of acute fracture or traumatic subluxation. hx PVD, TIA as per records lung cancer R sp surgery 1990s biceps tendinitis ongoing steroid Rx Steroid-induced hyperglycemia -- A1c 6.0 -- outpatient ff up plan of care discussed with patient in detail and at length all questions answered She is understanding and agreeable, comfortable plan of care d/c home ff up with PCP in 1 week ff up with Senior Facilities Manager as scheduled Total Time Total Time Spent Total Time Spent (In Minutes): >30 minutes Discharge Plan Discharge Items Patient Disposition: Home - Self-Care Reason For Visit: PROL QTC, COMP UTI Discharge Diagnosis: SYNCOPE URINARY TRACT INFECTION Activity: Resume your previous activity Activity Comment: GRADUALLY TOLERATED Lifting: Wait until after follow-up appointment Exercise/Sports: Wait until after follow-up appointment Driving/Machine Use: NO DRIVING UNTIL RE-EVALUATED AND ALLOWED BY PRIMARY CARE PHYSICIAN Non-emergency contact: Primary Care Provider Call non-emergency contact if: you have any medication questions, your symptoms worsen, your pain is not controlled, your pain is worsening, your pain is unusual for you, your pain is concerning for you, you have a fever, your wound has increased redness, your wound has increased drainage and your wound pain has increased Follow-up/Referrals: Chung Arrington DO [Primary Care Provider] - (Date & Time 03/06/2020 12:00 PM Provider Chung Arrington DO Department [facility] ) Diet: Heart Healthy Addtl Attending Provider Instructions: YOUR NEW MEDICATION IS CEFDINIR- ANTIBIOTIC FOR URINARY TRACT INFECTION MAKE SURE TO DRINK AT LEAST 6-8 GLASSES OF WATER DAILY. EAT YOGURT DAILY FOR AT LEAST 1 WEEK. RESUME TAKING ELIQUIS TOMORROW. CALL PRIMARY CARE PHYSICIAN OR RETURN TO THE ER IMMEDIATELY IF WITH FEVER/CHILLS, ABDOMINAL PAIN, NAUSEA/VOMITING, WEAKNESS. CALL 911 IMMEDIATELY IF WITH RECURRENCE OF PASSING OUT. FOLLOW UP WITH DR. ARRINGTON OUTLINED ABOVE. FOLLOW UP WITH RECOVERY RN SCHEDULED. Pending Studies at Discharge: No Stand-Alone Forms: [employer], Smoking Cessation Medications and DC Order Prescriptions: New cefdinir 300 mg capsule 300 mg PO Q12H 5 Days Qty: 10 RF: 0 Continued amoxicillin 500 mg tablet 2,000 mg PO ONCE PRN (Reason: prophylaxis) Qty: 4 RF: 2 methylprednisolone 4 mg tablets,dose pack 4 mg PO UD Qty: 1 RF: 0 melatonin 10 mg tablet 10 mg PO HS RF: 0 atorvastatin [Lipitor] 20 mg Tablet 20 mg PO HS RF: 0 omeprazole 20 mg Capsule,Delayed Release(Dr/Ec) 20 mg PO QAM RF: 0 verapamil 240 mg Tablet Extended Release 240 mg PO QPM RF: 0 lisinopril 5 mg Tablet 5 mg PO QAM RF: 0 calcium carbonate [Calcium 600] 600 mg calcium (1,500 mg) Tablet 600 mg PO 3XWK RF: 0 metoprolol succinate 25 mg tablet extended release 24 hr 12.5 mg PO QAM RF: 0 omega-3 fatty acids Capsule 2 cap PO BID RF: 0 glucosamine HCl-vitamin D3 1,000-200 mg-unit Tablet 1 tab PO 3XWK RF: 0 Eliquis 5 mg tablet 5 mg PO BID RF: 0 magnesium oxide 400 mg magnesium Tablet 400 mg PO QAM RF: 0 diphenhydramine HCl [Sleep Aid (diphenhydramine)] 25 mg Capsule 25 mg PO HS PRN (Reason: Sleep) RF: 0 Discharge Orders: Discharge Order (Routine); Ordered 03/02/20 Ordered By: Mirza Guevara Admission Data Admit Date/Time: 02/29/20 20:26 Attending Provider: Mirza Guevara Admit Provider: Tam Polo Primary Care Provider: Chung Arrington Other Providers: Tam Polo ; Angel Dennis ; Bao Walsh ; Sj Bay ; Jose Joseph ; Brad Perry ; German Raya ; Sonya Carrasco ; Lilli Carranza ; Danny Linares Other Interventions: Discharge Summary Assessment (RN) Last Done: 03/02/20 13:28
[2020-03-03] MEDS ORDERED: methylPREDNISolone 4 MG TAB PO SCH (07:00)
[2020-03-04] MEDS ORDERED: methylPREDNISolone 4 MG TAB PO SCH (07:00)
[2020-03-05] MEDS ORDERED: methylPREDNISolone 4 MG TAB PO SCH (07:00)
== END 2020-03-02 15:40 | disposition home or self-care (01) ==
LOC: ED 16:37 → 2N 20:26 → INTOOBSV 20:26 → 2N 21:20

== ENCOUNTER 2020-03-10 09:48 | Inpatient (IN) ==
[2020-03-10] MEDS ORDERED: ONDANSETRON INJ 2 MG/ML 2 ML VIAL IV STA (10:20)
[2020-03-10] MEDS ORDERED: SODIUM CHLORIDE 0.9% 500 ML IV SCH (10:30)
[2020-03-10] MEDS ORDERED: IOVERSOL 100ml IV ONE (10:41)
[2020-03-10 10:46] LABS: Basophils # (auto) 0.01 K/uL (0-0.2); Basophils % (auto) 0.1 %; Eosinophils # (auto) 0.14 K/uL (0-0.5); Hematocrit (blood only) 43.8 % (37-47); Hemoglobin 14.8 g/dL (12.0-16.0); Immature Granulocytes # (auto) 0.05 K/uL (0.00-0.02); Immature Granulocytes % (auto) 0.3 %; Lymphocytes # (auto) 0.31 K/uL (1.2-3.4); Lymphocytes % (auto) 2.1 %; Mean Corpuscular Hemoglobin 27.9 pg (25-34); Mean Corpuscular Hgb Conc 33.8 g/dL (32-36); Mean Corpuscular Volume 82.5 fL (80-100); Mean Platelet Volume 9.5 fL (7.4-10.4); Monocytes # (auto) 0.96 K/uL (0.11-0.59); Monocytes % (auto) 6.5 %; Neutrophils # (auto) 13.22 K/uL (1.4-6.5); Platelet Count 244 K/uL (130-400); RDW Coefficient of Variation 13.1 % (11.5-14.5); RDW Standard Deviation 39.9 fL (36.4-46.3); Red Blood Count 5.31 M/uL (4.2-5.4); White Blood Count 14.69 K/uL (4.8-10.8)
--- NOTE | 2020-03-10 10:49 | XRay Report ---
XR chest 1V portable HISTORY: 89 years-old Female weakness acute weakness COMPARISON: Chest radiograph 03/01/2020, chest CT 04/19/2019, 02/22/2013. TECHNIQUE: Portable AP view of the chest FINDINGS: Cardiomediastinal and hilar silhouettes are unchanged. Surgical clips project over the right hilum. B lunting of the costophrenic angles. Mild progression of ill-defined bibasilar opacities. Interstitial coarsening. 9 mm nodule right lung apex redemonstrated. Degenerative changes of the shoulders and sp ine. Right shoulder reverse total joint arthroplasty. Electronic device projects over the left upper lung. IMPRESSION: 1. Mild bibasilar opacities suggestive of atelectasis versus pneumonitis. 2. Unchanged subcentimeter pulmonary nodule of the right lung apex, stable from 2013. 3. Chronic interstitial coarsening. ACT 112: Negative or not required by law. The above report was generated using voice recognition software. It may contain grammatical, syntax o r spelling errors. Electronically signed by: Bryon Schrader M.D. 03/10/2020 10:47 AM
[2020-03-10 10:52] LABS: INR 1.2 (0.9-1.1); Prothrombin Time 12.8 Seconds (9.0-12.0)
[2020-03-10 11:06] LABS: Alanine Aminotransferase 15 U/L (12-78); Albumin Level 3.4 gm/dl (3.4-5.0); Aspartate Aminotransferase 11 U/L (15-37); BUN Creatinine Ratio 17.7 (10-20); Blood Urea Nitrogen 14 mg/dl (7-18); Carbon Dioxide 28 mmol/L (21-32); Chloride 103 mmol/L (98-107); Est GFR (Non-African American) 67.3; Glucose 121 mg/dl (70-99); Magnesium 2.3 mg/dl (1.8-2.4); Potassium 3.9 mmol/L (3.5-5.1); Sodium 135 mmol/L (136-145)
--- NOTE | 2020-03-10 11:10 | Emergency Department Note ---
Impression & Plan Acute upper abdominal pain, Weakness, Nausea, Breathlessness ED Provider Note Provider: Robert Sheffield MD DATE OF SERVICE:03/10/2020 CHIEF COMPLAINT: Abdominal pain, weakness HISTORY OF PRESENT ILLNESS: Patient is a 89-year-old female with a history of CAD, atrial fibrillation on Eliquis, hypertension, distant lung cancer presenting today with from home stating yesterday afternoon she began develop significant abdominal discomfort and pain. States she is been nauseous but not had any vomiting or diarrhea. Had a very small hard bowel movement without change in symptoms. Denies urinary symptoms. Denies syncope overnight. Denies chest pain or palpitations but states she is breathing just a little bit harder. States she has taken her evening medicines yesterday and her Eliquis this morning but did not take her other meds running medicines. Has been able to sip on some water but states she feels thirsty and generally weak. Denies fevers. States she is not been able to eat anything today and again feels generally weak. No history of similar. Distant history of diverticulitis reported but he states this does not feel the same. Was hospitalized last week for blacking out episodes and followed up in the outpatient setting with her doctor and cardiology. ZIO monitor placed the beginning of this prior week. REVIEW OF SYSTEMS: A total of 10 review of systems was obtained and negative except as stated above in the HPI. PAST MEDICAL HISTORY: As noted above MEDICATIONS: Reviewed medication list with the patient and SOCIAL HISTORY: Lives at home with PHYSICAL EXAM: GENERAL: alert and oriented in no acute distress on stretcher but appears fatigued Head: normocephalic and atraumatic EYES: No injection, discharge or icterus. NECK: Trachea midline. Supple. ENT: Mucous membranes pink and moist. LUNGS: Airway patent. No retractions. Breath sounds clear with some slight tachypnea appreciated HEART: Regular tachycardic rate and rhythm. No chest wall tenderness with the right upper chest ZIO monitor in place ABDOMEN: Soft with perhaps some slight epigastric tenderness but not peritoneal. No rebound. SKIN: Acyanotic, warm, dry, without rashes EXTREMITIES: Without swelling, tenderness or deformity NEUROLOGICAL: No focal deficits. No aphasia. No facial droop or slurred speech. EKG: Sinus tachycardia 107 bpm no PVC or PAC. Left axis left bundle branch was noted. No acute ST segment elevation noted. QTc 501. Compared to previous from March 01, 2020 no significant change CONTINUOUS CARDIAC MONITORING: was ordered and showed a heart rate of bpm in Patient's laboratory studies and imaging reviewed. Differential includes Infection, dehydration, metabolic abnormality, hypo/hyperglycemia, electrolyte disturbance, anemia, hypoxia, cardiac sources, intracerebral event, toxicologic, neurologic, gastrointestinal, as well as other pathologies. IMPRESSION/MEDICAL DECISION MAKING: Recent hospitalization last week and records reviewed. Was recently treated for UTI. Patient reports now some upper abdominal discomfort with nausea without vomiting or diarrhea. Not peritoneal. Some shortness of breath noted. Denies sick contacts. Denies any significant trauma. Given some nausea medicine here and IV fluid. Patient is noted be tachycardic complains of general weakness. No URI symptoms reported but coronavirus testing will be sent. CT abdomen pelvis to be completed. Seems less likely be obstruction but has had prior abdominal surgery in the past. EKG and troponin were sent but less likely be cardiac/OK/ACS given the location of the pain and the nonexertional component. EKG shows sinus tachycardia without A. fib RVR and no ST segment elevation. LFTs and lipase were sent. Laboratory studies show no anemia but a leukocytosis of 14.7 which appears new today. Electrolytes without significant abnormality and renal function is stable. Bilirubin just elevated 1.7 but AST ALT and alk phos are within normal limits. Troponin is negative. TSH within normal limits. Chest x-ray questions some bibasilar atelectasis versus pneumonitis with unchanged right lung pulmonary nodules and chronic interstitial coarsening per radiology. CT abdomen pelvis without significant acute intra-abdominal findings. Patient was given a nebulizer here to see if this would help with her breathing with some effect as well as a small amount of Toradol. On reevaluation patient again was stating she had some improvement of her breathing and her nausea had resolved. States her abdominal pain is moderate to some degree as well. Unsure of the exact etiology of her abdominal pain at this point, could possibly represent just a gastroenteritis. Her history here today is however a bit concerning given her history of unexplained syncope and appears that cardiology is considering empiric pacemaker placement in the short-term. Has not had significant cardiac arrhythmia while here. Does not appear to be in A. fib at this time. Do not see evidence of acute cardiac injury again and doubt PE with her anticoa gulation. Covid test was negative. Patient is not acutely hypoxic here but again with leukocytosis, her comorbidities, or unexplained upper abdominal pain in discussion with the patient felt it was better for her to be observed here at the current time. The hospitalist was contacted. DIAGNOSIS: Weakness, shortness of breath, abdominal pain DISPOSITION: Hospitalist will evaluate Patient was agreeable with this plan. Past Med/Surg History Medical History (Updated 03/10/20 @ 14:41 by Robert Sheffield M.D.) 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 Dysarthria Paroxysmal atrial fibrillation Rectal bleeding Status post lung surgery (08/03/12) TIA (transient ischemic attack) Surgical History H/O section H/O hemorrhoidectomy History of lung surgery Hx of cholecystectomy Family History Other Abdominal aortic aneurysm Stroke Social History Smoking Status: Never smoker Second Hand Exposure: No; Hx Alcohol Use: Yes Alcohol type: wine Hx Substance Use: No Preferred Language: Ukrainian Communication Ability: Effective Furniture Restorer Required: No Beliefs That Will Affect Care: Hinduism marital status: Current Living Situation: Spouse Other Information That Helps Us Care for You: No Feels Safe at Home: Yes Safety Concerns: Feels Safe At This Time Assistive Devices: Glasses Allergies Allergies Allergy/AdvReac Type Severity Reaction Status Date / Time adhesive Allergy Unknown RASH, Verified 03/10/20 11:13 REDDNESS AT SITE codeine Allergy Unknown RASH, Verified 03/10/20 11:13 SEVERE ITCHING metronidazole Allergy Unknown SEVERE Verified 03/10/20 11:13 YEAST/VAGINAL INFX morphine Allergy Unknown IRREGULAR Verified 03/10/20 11:13 HEART RATE, EXTREME SEDATION propoxyphene AdvReac Unknown A-FIB Verified 03/10/20 11:13 Home Meds Home Medications Medication Instructions Recorded Confirmed atorvastatin [Lipitor] 20 mg PO HS 01/30/18 03/10/20 lisinopril 5 mg PO QAM 01/30/18 03/10/20 omeprazole 20 mg PO QAM 01/30/18 03/10/20 verapamil 240 mg PO QPM 12/15/18 01/23/21 melatonin 10 mg tablet 10 mg PO HS PRN tab 10/26/18 02/29/20 Eliquis 5 mg PO BID 12/31/19 03/10/20 calcium carbonate [Calcium 600] 600 mg PO [id number] 12/31/19 03/10/20 diphenhydramine HCl [Sleep Aid 25 mg PO HS PRN 12/31/19 03/10/20 (diphenhydramine)] magnesium oxide 400 mg PO QAM 12/31/19 03/10/20 metoprolol succinate 12.5 mg PO QAM 12/31/19 03/10/20 Glucosamine Plus Vitamin D3 1 tab PO QAM 03/10/20 03/10/20 docusate sodium [Stool Softener] 100 mg PO HS PRN 03/10/20 03/10/20 omega [id number] oil [Fish Oil] 2 cap PO BID 03/10/20 03/10/20 Previous Rx's Medication Instructions Recorded amoxicillin 500 mg tablet 2,000 mg PO ONCE PRN #4 tab 01/09/20 Results & Data (ED) Vital Signs Vital Signs - 24 hr 03/10/20 09:53 03/10/20 10:12 03/10/20 10:19 Temperature 36.2 C L Temperature Source Temporal Artery Scan Pulse Rate 120 H 103 H Pulse Rate [Right Finger] Pulse Rate from SpO2 Sensor 112 H Respiratory Rate 20 15 Respiratory Effort / Characteristics Non-Labored Spontaneous Respiratory Depth Normal Blood Pressure 146/83 H 149/81 H Blood Pressure Mean 104 103 Blood Pressure Position Sitting Pulse Oximetry 92 92 93 Oxygen Delivery Method Room Air Room Air Room Air Oxygen Flow Rate Sepsis Recent Fever Within 48 Hours No Sepsis New/Unexplained Change in Mental Status No Sepsis Action Taken by Nursing No Action Required 03/10/20 11:31 03/10/20 11:55 03/10/20 12:00 Temperature Temperature Source Pulse Rate 37 L 100 H Pulse Rate [Right Finger] 99 H Pulse Rate from SpO2 Sensor 107 H 100 H Respiratory Rate 22 18 20 Respiratory Effort / Characteristics Non-Labored Spontaneous Respiratory Depth Blood Pressure 157/71 H Blood Pressure Mean 99 Blood Pressure Position Pulse Oximetry 94 97 100 Oxygen Delivery Method Room Air Nasal Cannula Nasal Cannula Oxygen Flow Rate 3 2 Sepsis Recent Fever Within 48 Hours Sepsis New/Unexplained Change in Mental Status Sepsis Action Taken by Nursing Laboratory Data Result diagrams: 03/10/20 10:35 03/10/20 10:35 Lab Results 03/10/20 03/10/20 03/10/20 Range/Units 10:35 10:35 10:35 WBC 14.69 H (4.8-10.8) K/uL RBC 5.31 (4.2-5.4) M/uL Hgb 14.8 (12.0-16.0) g/dL Hct 43.8 (37-47) % MCV 82.5 (80-100) fL MCH 27.9 (25-34) pg MCHC 33.8 (32-36) g/dL RDW Std Deviation 39.9 (36.4-46.3) fL RDW Coeff of Coleman 13.1 (11.5-14.5) % Plt Count 244 (130-400) K/uL MPV 9.5 (7.4-10.4) fL Immature Gran % (Auto) 0.3 % Neut % (Auto) 90.0 % Lymph % (Auto) 2.1 % [place] % (Auto) 6.5 % Eos % (Auto) 1.0 % Baso % (Auto) 0.1 % Neut # (Auto) 13.22 H (1.4-6.5) K/uL Lymph # (Auto) 0.31 L (1.2-3.4) K/uL [place] # (Auto) 0.96 H (0.11-0.59) K/uL Eos # (Auto) 0.14 (0-0.5) K/uL Baso # (Auto) 0.01 (0-0.2) K/uL Immature Gran # (Auto) 0.05 H (0.00-0.02) K/uL PT 12.8 H (9.0-12.0) Seconds INR 1.2 H (0.9-1.1) Sodium 135 L (136-145) mmol/L Potassium 3.9 (3.5-5.1) mmol/L Chloride 103 (98-107) mmol/L Carbon Dioxide 28 (21-32) mmol/L Anion Gap 4.0 (3-11) BUN 14 (7-18) mg/dl Creatinine 0.79 (0.6-1.2) mg/dl Est Cr Clr Drug Dosing Not Reportable Est GFR ( Amer) 78.0 Est GFR (Non-Af Amer) 67.3 BUN/Creatinine Ratio 17.7 (10-20) Glucose 121 H (70-99) mg/dl Lactate (0.4-2.0) mmol/L Calcium 9.0 (8.5-10.1) mg/dl Magnesium 2.3 (1.8-2.4) mg/dl Total Bilirubin 1.7 H (0.2-1) mg/dl AST 11 L (15-37) U/L ALT 15 (12-78) U/L Alkaline Phosphatase 81 (45-117) U/L Troponin I < 0.015 (0-0.045) ng/ml Total Protein 7.1 (6.4-8.2) gm/dl Albumin 3.4 (3.4-5.0) gm/dl Globulin 3.7 (2.5-4.0) gm/dl Albumin/Globulin Ratio 0.9 (0.9-2) Lipase (73-393) U/L TSH 1.420 (0.300-4.500) uIu/ml Urine Color Urine Appearance (Clear) Urine pH (4.5-7.5) Ur Specific [place] (1.000-1.030) Urine Protein (Negative) Urine Glucose (UA) (Negative) Urine Ketones (Negative) Urine Blood (Negative) Urine Nitrite (Negative) Urine Bilirubin (Negative) Urine Urobilinogen (Negative) Ur Leukocyte Esterase (Negative) Urine WBC (Auto) (0-5) /hpf Urine RBC (Auto) (0-4) /hpf U Hyaline Cast (Auto) (0-5) /lpf U Epithel Cells (Auto) (0-5) /lpf Urine Bacteria (Auto) (Negative) Ur Renal Epithelial Cell COVID-19 Eval Order SARS-CoV-2, RNA, NAAT (NEGATIVE) 03/10/20 03/10/20 03/10/20 Range/Units 10:35 10:35 11:00 WBC (4.8-10.8) K/uL RBC (4.2-5.4) M/uL Hgb (12.0-16.0) g/dL Hct (37-47) % MCV (80-100) fL MCH (25-34) pg MCHC (32-36) g/dL RDW Std Deviation (36.4-46.3) fL RDW Coeff of Coleman (11.5-14.5) % Plt Count (130-400) K/uL MPV (7.4-10.4) fL Immature Gran % (Auto) % Neut % (Auto) % Lymph % (Auto) % [place] % (Auto) % Eos % (Auto) % Baso % (Auto) % Neut # (Auto) (1.4-6.5) K/uL Lymph # (Auto) (1.2-3.4) K/uL [place] # (Auto) (0.11-0.59) K/uL Eos # (Auto) (0-0.5) K/uL Baso # (Auto) (0-0.2) K/uL Immature Gran # (Auto) (0.00-0.02) K/uL PT (9.0-12.0) Seconds INR (0.9-1.1) Sodium (136-145) mmol/L Potassium (3.5-5.1) mmol/L Chloride (98-107) mmol/L Carbon Dioxide (21-32) mmol/L Anion Gap (3-11) BUN (7-18) mg/dl Creatinine (0.6-1.2) mg/dl Est Cr Clr Drug Dosing Est GFR ( Amer) Est GFR (Non-Af Amer) BUN/Creatinine Ratio (10-20) Glucose (70-99) mg/dl Lactate 1.3 (0.4-2.0) mmol/L Calcium (8.5-10.1) mg/dl Magnesium (1.8-2.4) mg/dl Total Bilirubin (0.2-1) mg/dl AST (15-37) U/L ALT (12-78) U/L Alkaline Phosphatase (45-117) U/L Troponin I (0-0.045) ng/ml Total Protein (6.4-8.2) gm/dl Albumin (3.4-5.0) gm/dl Globulin (2.5-4.0) gm/dl Albumin/Globulin Ratio (0.9-2) Lipase 80 (73-393) U/L TSH (0.300-4.500) uIu/ml Urine Color Urine Appearance (Clear) Urine pH (4.5-7.5) Ur Specific [place] (1.000-1.030) Urine Protein (Negative) Urine Glucose (UA) (Negative) Urine Ketones (Negative) Urine Blood (Negative) Urine Nitrite (Negative) Urine Bilirubin (Negative) Urine Urobilinogen (Negative) Ur Leukocyte Esterase (Negative) Urine WBC (Auto) (0-5) /hpf Urine RBC (Auto) (0-4) /hpf U Hyaline Cast (Auto) (0-5) /lpf U Epithel Cells (Auto) (0-5) /lpf Urine Bacteria (Auto) (Negative) Ur Renal Epithelial Cell COVID-19 Eval Order Covid19 IDNow atMO[facility] SARS-CoV-2, RNA, NAAT (NEGATIVE) 03/10/20 03/10/20 Range/Units 11:00 11:06 WBC (4.8-10.8) K/uL RBC (4.2-5.4) M/uL Hgb (12.0-16.0) g/dL Hct (37-47) % MCV (80-100) fL MCH (25-34) pg MCHC (32-36) g/dL RDW Std Deviation (36.4-46.3) fL RDW Coeff of Coleman (11.5-14.5) % Plt Count (130-400) K/uL MPV (7.4-10.4) fL Immature Gran % (Auto) % Neut % (Auto) % Lymph % (Auto) % [place] % (Auto) % Eos % (Auto) % Baso % (Auto) % Neut # (Auto) (1.4-6.5) K/uL Lymph # (Auto) (1.2-3.4) K/uL [place] # (Auto) (0.11-0.59) K/uL Eos # (Auto) (0-0.5) K/uL Baso # (Auto) (0-0.2) K/uL Immature Gran # (Auto) (0.00-0.02) K/uL PT (9.0-12.0) Seconds INR (0.9-1.1) Sodium (136-145) mmol/L Potassium (3.5-5.1) mmol/L Chloride (98-107) mmol/L Carbon Dioxide (21-32) mmol/L Anion Gap (3-11) BUN (7-18) mg/dl Creatinine (0.6-1.2) mg/dl Est Cr Clr Drug Dosing Est GFR ( Amer) Est GFR (Non-Af Amer) BUN/Creatinine Ratio (10-20) Glucose (70-99) mg/dl Lactate (0.4-2.0) mmol/L Calcium (8.5-10.1) mg/dl Magnesium (1.8-2.4) mg/dl Total Bilirubin (0.2-1) mg/dl AST (15-37) U/L ALT (12-78) U/L Alkaline Phosphatase (45-117) U/L Troponin I (0-0.045) ng/ml Total Protein (6.4-8.2) gm/dl Albumin (3.4-5.0) gm/dl Globulin (2.5-4.0) gm/dl Albumin/Globulin Ratio (0.9-2) Lipase (73-393) U/L TSH (0.300-4.500) uIu/ml Urine Color Dark Yellow Urine Appearance Clear (Clear) Urine pH 6.5 (4.5-7.5) Ur Specific [place] 1.022 (1.000-1.030) Urine Protein 1+ H (Negative) Urine Glucose (UA) Negative (Negative) Urine Ketones 1+ H (Negative) Urine Blood 2+ H (Negative) Urine Nitrite Negative (Negative) Urine Bilirubin Negative (Negative) Urine Urobilinogen Negative (Negative) Ur Leukocyte Esterase Trace H (Negative) Urine WBC (Auto) 10-30 H (0-5) /hpf Urine RBC (Auto) 10-30 H (0-4) /hpf U Hyaline Cast (Auto) 1-5 (0-5) /lpf U Epithel Cells (Auto) >30 H (0-5) /lpf Urine Bacteria (Auto) Negative (Negative) Ur Renal Epithelial Cell Not Reportable COVID-19 Eval Order SARS-CoV-2, RNA, NAAT NEGATIVE (NEGATIVE) Administered Medications Discontinued Medications Albuterol (Albut/Ipratrop 3mg/0.5mg Neb 3 Ml Vial) 3 ml NEB NOW STA Stop: 03/10/20 11:40 Last Admin: 03/10/20 11:55 Dose: 3 ml Documented by: [id number] Sodium Chloride (Nss) 500 mls @ 999 mls/hr IV .Q31M BERNARDINO Stop: 03/10/20 11:00 Last Infusion: 03/10/20 12:18 Dose: 0 mls/hr Documented by: [id number] Admin: 03/10/20 10:57 Dose: 999 mls/hr Documented by: [id number] Ioversol (Ioversol 100ml) 93 ml IV ONCE ONE Stop: 03/10/20 10:42 Last Admin: 03/10/20 10:42 Dose: 93 ml Documented by: [id number] Ketorolac Tromethamine (Ketorolac Tromethamine 15 Mg/Ml Vial) 10 mg IV NOW STA Stop: 03/10/20 11:41 Last Admin: 03/10/20 13:26 Dose: 10 mg Documented by: [id number] Ondansetron HCl (Ondansetron Inj 2 Mg/Ml 2 Ml Vial) 4 mg IV NOW STA Stop: 03/10/20 10:21 Last Admin: 03/10/20 10:57 Dose: 4 mg Documented by: [id number] Discharge Plan Visit Data Chief Complaint: Illness Stated Complaint: STOMACH PAIN,NAUSEA,CONSITPATION ED Provider: Robert Sheffield Discharge Problem: Acute upper abdominal pain, Weakness, Nausea, Breathlessness Patient Disposition: Admitted As Inpatient Discharge Instructions Interventions: ED Discharge Assessment Last Done: 03/10/20 14:11
[2020-03-10 11:16] LABS: Albumin Globulin Ratio 0.9 (0.9-2); Alkaline Phosphatase 81 U/L (45-117); Bilirubin,Total 1.7 mg/dl (0.2-1); Globulin 3.7 gm/dl (2.5-4.0); Total Protein 7.1 gm/dl (6.4-8.2); Troponin I < 0.015 ng/ml (0-0.045)
[2020-03-10 11:24] LABS: Appearance Urine Clear (Clear); Bacteria Urine Automated Negative (Negative); Bilirubin Urine Negative (Negative); Blood Urine 2+ (Negative); Color Urine Dark Yellow; Epithelial Cell Urine Auto >30 /lpf (0-5); Glucose Urine UA Negative (Negative); Ketones Urine 1+ (Negative); Leukocyte Esterase Urine Trace (Negative); Nitrite Urine Negative (Negative); Protein Urine 1+ (Negative); Specific Gravity Urine 1.022 (1.000-1.030); Urobilinogen Urine Negative (Negative); pH Urine 6.5 (4.5-7.5)
[2020-03-10] MEDS ORDERED: ALBUT/IPRATROP 3MG/0.5MG NEB 3 ML VIAL NEB STA (11:39)
[2020-03-10] MEDS ORDERED: KETOROLAC TROMETHAMINE 15 MG/ML VIAL IV STA (11:40)
--- NOTE | 2020-03-10 11:51 | CT Scan Report ---
ABDOMEN AND PELVIS CT WITH IV CONTRAST CT DOSE: 259.93 mGy.cm HISTORY: Acute generalized abdominal pain abdominal pain TECHNIQUE: Multiaxial CT images of the abdomen and pelvis were performed following the IV administrat ion of 93 cc of Optiray 320, A dose lowering technique was utilized adhering to the principles of AL TALI. COMPARISON STUDY: CT abdomen and pelvis 01/30/2018 FINDINGS: Subpleural bibasilar reticular and groundglass opacities with tree-in-bud nodules. There is no pneumatosis or pneumoperitoneum. The imaged inferior cardiac chambers are mildly enlarged. [place]far[place] ry artery calcifications. Moderately atrophic pancreas. The spleen and right adrenal gland are unrema rkable. There is unchanged indeterminate 1.4 cm left adrenal gland lesion. Cholecystectomy with likel y postsurgical intrahepatic and extrahepatic biliary ductal dilation. Unremarkable liver. Patency of the hepatic and portal veins. Unremarkable right kidney with 4 mm hypodensity of the superior pole suggestive of a probable cyst. P robable cyst of the left kidney are also noted measuring up to 1.3 cm. No ureteral calculi or obstruc tive urinary bladder wall thickening with partial distention. Hysterectomy. No adnexal mass lesion. C alcified plaque of the abdominal aorta without aneurysm. No adenopathy. Small hiatal hernia with mild distal esophageal wall thickening. There is no bowel obstruction. Parti al sigmoid colon resection with colocolonic anastomosis. Colonic diverticulosis. Mild to moderate fec al retention. Noninflamed appendix. Small lipoma of the right gluteus minimus. Degenerative changes o f the spine, pelvis and hips. There is no acute fracture. IMPRESSION: 1. No bowel obstruction or bowel wall thickening. Normal appendix. 2. Mild constipation. 3. Colonic diverticulosis without acute diverticulitis. 4. Small hiatal hernia. 5. Mild bibasilar opacities are suggestive of an infectious or inflammatory bronchiolitis/pneumonitis . ACT 112: Negative or not required by law. The above report was generated using voice recognition software. It may contain grammatical, syntax o r spelling errors. Electronically signed by: Bryon Schrader M.D. 03/10/2020 11:49 AM
--- NOTE | 2020-03-10 12:21 | Electrocardiogram Report ---
Test Reason : Blood Pressure : / mmHG Vent. Rate : 107 BPM Atrial Rate : 107 BPM P-R Int : 156 ms QRS Dur : 134 ms QT Int : 376 ms P-R-T Axes : 074 -45 094 degrees QTc Int : 501 ms Sinus tachycardia Left axis deviation Left bundle branch block Abnormal ECG When compared with ECG of 01-MAR-2020 05:52, No significant change was found Confirmed by Thang Roy ([id number]) on 03/10/2020 12:20:43 PM Referred By: REFERRED SELF Confirmed By:Thang Roy
--- NOTE | 2020-03-10 13:21 | History & Physical Report ---
Date of Service March 10, 2020 Assessment & Plan (1) Abdominal pain: Pt is 89 y/o F with PMH HTN, HLD, paroxysmal atrial fibrillation on Eliquis, LBBB, cerebral carotid artery aneurysm clipped in 1988, right lung CA s/p surgery presented to ER with c/o mid and lower abdominal pain x 1 day with nausea. No vomiting or fever. Possible UTI Meets SIRS criteria WBC: 14, Normal lipase. Unremarkable CT abd/pelvis. No CVA tenderness on exam Blood cultures pending Gentle IVF In ER received Zofran and Toradol. Will avoid further zofran secondary to prolonged QTc and Toradol secondary to taking Eliquis Scheduled Tylenol Meclizine prn nausea CBC, BMP in am (2) UTI (urinary tract infection): Recent UTI 03/02/20. Was treated with Rocephin. D/C on cefdinir and PCP had prescribed macrobid. Both were filled at pharmacy. Pt unsure of which she took but reports finished on 03/09/20. Denies current dysuria, hematuria, urinary frequency. Today UA: trace leuk esterace, 10-30 WBC, >30 epithel, no bacteria Obtain urine culture. Possible continued UTI Start cefepime with plan to de-escalate or DC upon culture results (3) Atelectasis: Reports taking decreased breaths with abdominal pain the past day. No increased cough. No fever CXR: Mild bibasilar opacities suggestive of atelectasis versus pneumonitis. Negative COVID 19 testing Denies missed Eliquis dosing. PE unlikely Encourage incentive spirometry (4) Sinus tachycardia: Initial sinus tachycardia with rate of 120 in ER down to 100 after IVF May be secondary to missed beta shawn dose vs dehydration vs underlying infection Resume metoprolol Gentle IVF Monitor (5) Syncope: Recent hospitalization 02/29/20 - 03/02/20 for syncope. Possible tachybrady syndrome ZIO patch in placed 03/06/20. No further syncopal events Continue cardiology and EP f/u outpatient (6) Paroxysmal atrial fibrillation: On Eliquis Continue Eliquis, metoprolol, verapamil (7) History of TIA (transient ischemic attack): Continue statin (8) HTN (hypertension): Continue lisinopril, metoprolol, verapamil DVT Prophylaxis -On Eliquis Full Code as per discussion with pt Follows with Dr Arrington for routine care Pt was seen and care coordinated with Dr Bautista. See addendum History of Present Illness Chief Complaint: Abdominal pain Primary Care Provider: Chung Arrington DO Pt is 89 y/o F with PMH HTN, HLD, paroxysmal atrial fibrillation on Eliquis, LBBB, cerebral carotid artery aneurysm clipped in 1988, right lung CA s/p surgery presented to ER with c/o Abdominal pain x 1 day. Pt with Recent hospitalization 02/29/20 - 03/02/20 for syncope and UTI. Was treated with Rocephin and d/c on cefdinir. Outpatient note reports PCP prescribed Macrobid also on 03/02/20. (Called pt's pharmacy and she picked up both prescriptions on 03/03/20). Pt states unsure what antibiotic she was taking. She finished antibiotic yesterday. ZIO patch in placed 03/06/20. Had cardiology f/u 03/09/20 and has upcoming EP appointment for suspected tachybrady syndrome. Pt states yesterday afternoon started with abdominal pain across middle of abdomen. Denies back or flank pain. C/O decreased appetite and nausea no vomiting. Has not been eating or drinking since yesterday afternoon. Denies any current urinary symptoms. Reports feels cold. Reports feels like has been taking decreased breaths since abdominal pain started yesterday. Feels was related to the abdominal pain. SOB after CT scan today in ER improved after a breathing treatment. Has chronic constipation feels at her baseline. States has mild cough intermittently at baseline, denies any increased cough. Feels generalized weakness today. Had Eliquis, did not have other morning meds today. Denies diaphoresis, hematemesis, melena, hematochezia, FRANCO, dizziness, syncope, vision changes, neck pain, CP, palpitations, sore throat, rhinorrhea, extremity we akness, extremity edema, rashes. Allergies Allergy/AdvReac Type Severity Reaction Status Date / Time adhesive Allergy Unknown RASH, Verified 03/10/20 11:13 REDDNESS AT SITE codeine Allergy Unknown RASH, Verified 03/10/20 11:13 SEVERE ITCHING metronidazole Allergy Unknown SEVERE Verified 03/10/20 11:13 YEAST/VAGINAL INFX morphine Allergy Unknown IRREGULAR Verified 03/10/20 11:13 HEART RATE, EXTREME SEDATION propoxyphene AdvReac Unknown A-FIB Verified 03/10/20 11:13 Home Medications Medication Instructions Recorded Confirmed Type atorvastatin [Lipitor] 20 mg PO HS 01/30/18 03/10/20 History lisinopril 5 mg PO QAM 01/30/18 03/10/20 History omeprazole 20 mg PO QAM 01/30/18 03/10/20 History verapamil 240 mg PO QPM 01/30/18 03/10/20 History melatonin 10 mg tablet 10 mg PO HS PRN tab 10/26/18 02/29/20 History Eliquis 5 mg PO BID 12/31/19 03/10/20 History calcium carbonate [Calcium 600] 600 mg PO 3XWK 12/31/19 03/10/20 History diphenhydramine HCl [Sleep Aid 25 mg PO HS PRN 12/31/19 03/10/20 History (diphenhydramine)] magnesium oxide 400 mg PO QAM 12/31/19 03/10/20 History metoprolol succinate 12.5 mg PO QAM 12/31/19 03/10/20 History amoxicillin 500 mg tablet 2,000 mg PO ONCE PRN #4 tab 01/09/20 03/10/20 Rx Glucosamine Plus Vitamin D3 1 tab PO QAM 03/10/20 03/10/20 History docusate sodium [Stool Softener] 100 mg PO HS PRN 03/10/20 03/10/20 History omega 1-zyw-gkd-fish oil [Fish Oil] 2 cap PO BID 03/10/20 03/10/20 History Past Med/Surg History Medical History (Updated 03/10/20 @ 14:41 by Robert Sheffield M.D.) 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 Dysarthria Paroxysmal atrial fibrillation Rectal bleeding Status post lung surgery (08/03/12) TIA (transient ischemic attack) Surgical History H/O section H/O hemorrhoidectomy History of lung surgery Hx of cholecystectomy Family History Other Abdominal aortic aneurysm Stroke Social History Smoking Status: Never smoker Second Hand Exposure: No; Hx Alcohol Use: Yes Alcohol type: wine Hx Substance Use: No Preferred Language: Malaysian Communication Ability: Effective 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 Beliefs That Will Affect Care: Baptism marital status: Current Living Situation: Spouse Other Information That Helps Us Care for You: No Feels Safe at Home: Yes Safety Concerns: Feels Safe At This Time Assistive Devices: Glasses Review of Systems Review of Systems: All systems reviewed & are unremarkable except as noted in HPI & below Physical Exam Physical Exam: General: no distress, WDWN Head: normocephalic, atraumatic Eyes: conjunctiva non-injected, anicteric ENT: normal inspection external ears, nose, mucous membranes moist Neck: supple, trachea midline Lungs: no respiratory distress, diminished bases, poor inspiratory effort by pt CV: RRR, no murmur, no pretibial edema Abd: normal BS, soft, +tenderness to palpation periumbilical, RLQ, LLQ, no CVA tenderness to palpation Ext: no cyanosis, no calf tenderness Neuro: A&O x 3, no focal deficits noted, normal affect Skin: warm, dry Results & Data Results & Data ([facility]) Vital Signs (Past 12 Hours) Vital Signs Temp Pulse Pulse Resp BP Pulse Ox 03/10/20 12:00 100 H 20 100 03/10/20 11:55 99 H 18 97 03/10/20 11:31 37 L 22 157/71 H 94 03/10/20 10:19 93 03/10/20 10:12 103 H 15 149/81 H 92 03/10/20 09:53 36.2 C L 120 H 20 146/83 H 92 Laboratory Results Short CBC 03/10/20 Range/Units 10:35 WBC 14.69 H (4.8-10.8) K/uL Hgb 14.8 (12.0-16.0) g/dL Hct 43.8 (37-47) % Plt Count 244 (130-400) K/uL BMP 03/10/20 10:35 Sodium 135 L Potassium 3.9 Chloride 103 Carbon Dioxide 28 BUN 14 Creatinine 0.79 Glucose 121 H Calcium 9.0 Cardiac Enzymes 03/10/20 Range/Units 10:35 Troponin I < 0.015 (0-0.045) ng/ml Liver Function 03/10/20 Range/Units 10:35 Total Bilirubin 1.7 H (0.2-1) mg/dl AST 11 L (15-37) U/L ALT 15 (12-78) U/L Alkaline Phosphatase 81 (45-117) U/L Albumin 3.4 (3.4-5.0) gm/dl Urine 03/10/20 Range/Units 11:06 Urine Color Dark Yellow Urine Appearance Clear (Clear) Urine pH 6.5 (4.5-7.5) Ur Specific [place] 1.022 (1.000-1.030) Urine Protein 1+ H (Negative) Urine Glucose (UA) Negative (Negative) Diagnostic Findings CXR: IMPRESSION: 1. Mild bibasilar opacities suggestive of atelectasis versus pneumonitis. 2. Unchanged subcentimeter pulmonary nodule of the right lung apex, stable from 2013. 3. Chronic interstitial coarsening. CT ABD/PELVIS: IMPRESSION: 1. No bowel obstruction or bowel wall thickening. Normal appendix. 2. Mild constipation. 3. Colonic diverticulosis without acute diverticulitis. 4. Small hiatal hernia. 5. Mild bibasilar opacities are suggestive of an infectious or inflammatory bronchiolitis/pneumonitis. Supervising Physician Co-Signing Physician Notes 89-year-old woman with history of lung cancer status post surgery in the , CAD, paroxysmal A. fib on Eliquis, hypertension, chronic LBBB, TIA, PVD, biceps tendinitis, recent hospitalization for syncopal episode and UTI discharge on 03/02/2020, who presents today complaining of abdominal pain and weakness that started yesterday. History as detailed above, notable for mid and lower abdominal pain, associated with nausea/anorexia/generalized weakness and chills. Reports some shortness of breath but attributed this to not taking deep breaths due to abdominal pain. Physical exam notable for elderly woman in no obvious distress, suprapubic/LLQ/RLQ tenderness, tachycardia Lab work notable for WBC of 14, bilirubin of 1.7, UA showing 10-30WBC/leuk est CXR show mild bibasilar opacities suggestive of atelectasis vs pneumonitis CT abd pelvis No bowel obstruction, mild constipation, mild bibasilar opacities -Abdominal pain Differentials include possible UTI, Constipation Possible sepsis met SIRS criteria with leukocytosis and tachycardia. Per DC summary, patient was discharged on cefdinir but stated she resumed some antibiotics she had at home. Did not recall the name. She stated she finished that 2 days ago. Unclear if patients UTI on recent admission was properly treated based on that history. IV cefepime and follow up urine culture. Also get blood cultures Gentle IV fluids Antiemetics and pain control Incentive spirometry Other plans as stated above (1) Syncope Syncope type: unspecified Qualified Code(s): R55 - Syncope and collapse
[2020-03-10] MEDS ORDERED: KETOROLAC TROMETHAMINE 15 MG/ML VIAL IV PRN (14:31)
[2020-03-10] MEDS ORDERED: SODIUM CHLORIDE 0.9% 1000ML 1,000 ML IV SCH (14:31)
[2020-03-10] MEDS ORDERED: POLYETHYLENE (MIRALAX) 17 GM PACK PO PRN (14:31)
[2020-03-10] MEDS: METOPROLOL SUCC 25MG EXT REL TAB PO SCH (15:14)
[2020-03-10] MEDS: lisinopril 5 MG TAB PO SCH (15:14)
[2020-03-10] MEDS: ACETAMINOPHEN 500 MG TAB PO SCH (15:51)
[2020-03-10] MEDS ORDERED: CEFEPIME 2,000 MG in SYRINGE 0 ML IV SCH (16:00)
[2020-03-10] MEDS: ACETAMINOPHEN 325 MG TAB PO PRN (19:26)
[2020-03-10] MEDS: DOCUSATE SODIUM 100 MG CAP PO SCH (21:48)
[2020-03-10] MEDS: APIXABAN 5 MG TABLET PO SCH (21:49)
[2020-03-10] MEDS: VERAPAMIL HCL 240 MG TABCR PO SCH (21:49)
[2020-03-10] MEDS: ATORVASTATIN 20 MG TAB PO SCH (21:49)
[2020-03-11] MEDS: ACETAMINOPHEN 500 MG TAB PO SCH ×2 (00:52→08:31)
[2020-03-11] MEDS ORDERED: SODIUM CHLORIDE 0.9% 500 ML IV SCH ×2 (01:45→03:30)
[2020-03-11] MEDS ORDERED: SODIUM CHLORIDE 0.9% 250 ML IV SCH (03:45)
[2020-03-11] MEDS ORDERED: SODIUM CHLORIDE 0.9% 1000ML 1,000 ML IV SCH (04:30)
[2020-03-11] MEDS ORDERED: KETOROLAC TROMETHAMINE 15 MG/ML VIAL ONE (04:51)
[2020-03-11 04:56] LABS: Eosinophils # (auto) 0.23 K/uL (0-0.5); Eosinophils % (auto) 1.4 %; Hemoglobin 12.1 g/dL (12.0-16.0); Immature Granulocytes # (auto) 0.04 K/uL (0.00-0.02); Immature Granulocytes % (auto) 0.2 %; Lymphocytes # (auto) 0.49 K/uL (1.2-3.4); Mean Corpuscular Hemoglobin 28.7 pg (25-34); Mean Corpuscular Hgb Conc 34.6 g/dL (32-36); Mean Corpuscular Volume 83.1 fL (80-100); Mean Platelet Volume 9.1 fL (7.4-10.4); Monocytes # (auto) 1.02 K/uL (0.11-0.59); Monocytes % (auto) 6.3 %; Neutrophils # (auto) 14.42 K/uL (1.4-6.5); Neutrophils % (auto) 89.1 %; Platelet Count 206 K/uL (130-400); RDW Coefficient of Variation 13.6 % (11.5-14.5); RDW Standard Deviation 41.5 fL (36.4-46.3); Red Blood Count 4.21 M/uL (4.2-5.4)
[2020-03-11 05:13] LABS: BUN Creatinine Ratio 26.2 (10-20); Blood Urea Nitrogen 17 mg/dl (7-18); Calcium 7.8 mg/dl (8.5-10.1); Carbon Dioxide 22 mmol/L (21-32); Chloride 110 mmol/L (98-107); Creatinine Clr Calc Pharmacy 51.1 ml/min; Est GFR (African American) 91.6; Glucose 103 mg/dl (70-99); Sodium 137 mmol/L (136-145)
[2020-03-11 05:18] LABS: Troponin I < 0.015 ng/ml (0-0.045)
[2020-03-11] MEDS ORDERED: HYDROmorphone INJ 0.5 MG/0.5 ML SYR IV STA (08:20)
[2020-03-11] MEDS: APIXABAN 5 MG TABLET PO SCH ×3 (08:31→20:18)
[2020-03-11] MEDS: DOCUSATE SODIUM 100 MG CAP PO SCH ×2 (08:32→09:57)
[2020-03-11] MEDS: PANTOprazole 40 MG TAB PO SCH ×2 (08:32→09:58)
[2020-03-11] MEDS: METOPROLOL SUCC 25MG EXT REL TAB PO SCH (08:33)
[2020-03-11] MEDS: MAGNESIUM OXIDE 400 MG TAB PO SCH ×2 (08:33→09:57)
[2020-03-11] MEDS: lisinopril 5 MG TAB PO SCH (08:33)
[2020-03-11] MEDS ORDERED: HYDROmorphone INJ 1 MG/ML SYRINGE IV PRN (09:25)
[2020-03-11] MEDS ORDERED: HYDROmorphone INJ 1 MG/ML SYRINGE IV STA (09:28)
[2020-03-11] MEDS ORDERED: IOVERSOL 100ml IV ONE (09:56)
[2020-03-11] MEDS ORDERED: FUROSEMIDE 40 MG in SYRINGE 0 ML IV ONE (10:00)
--- NOTE | 2020-03-11 10:05 | XRay Report ---
SINGLE VIEW CHEST CLINICAL HISTORY: Dyspnea. FINDINGS: An AP, portable, upright chest radiograph is compared to study dated 03/10/2020 and correlat ed with chest CT dated 04/19/2019. The examination is degraded by portable technique and patient rotati on. An electronic device partially obscures the left upper chest. The heart is top normal for project ion noting atherosclerotic calcification of the thoracic aorta. Emphysema and chronic interstitial th ickening are similar to previous. Postoperative change is noted in the right hilum. Volume loss in th e right lung suggests previous surgical resection. There is increasing bibasilar airspace consolidati on. Trace pleural effusions are suspected. No pneumothorax is seen. The skeletal structures are osteo penic. The bony thorax is grossly intact. Arthritic change is noted in the left shoulder. A right bernardo ulder arthroplasty is in place. IMPRESSION: 1. Emphysematous change with evidence of previous right-sided pulmonary resection. 2. There is increasing bibasilar airspace consolidation as compared to yesterday. Correlate clinicall y for evidence of pneumonia/aspiration pneumonitis. 3. Suspect small pleural effusions. ACT 112: Negative or not required by law. Electronically signed by: Lars Amaya M.D. 03/11/2020 10:03 AM
[2020-03-11] MEDS ORDERED: ONDANSETRON INJ 2 MG/ML 2 ML VIAL ONE (10:16)
[2020-03-11 10:21] LABS: D Dimer 740 ug/L FEU (0-500)
--- NOTE | 2020-03-11 10:28 | CT Scan Report ---
CT SCAN OF THE ABDOMEN AND PELVIS WITH IV CONTRAST CLINICAL HISTORY: Generalized abdominal pain. COMPARISON STUDY: Abdominal CT dated 03/10/2020. TECHNIQUE: Following the IV administration of 93 cc of Optiray 320, CT scan of the abdomen and pelvi s is performed from the lung bases to the proximal femora. Images are reviewed in the axial, sagittal , and coronal planes. IV contrast was administered without complication. A dose lowering technique wa s utilized adhering to the principles of ALARA. CT DOSE: 304.12 mGy.cm FINDINGS: Lung bases: The heart is normal in size and without pericardial effusion. There are coronary artery c alcifications. There are small pleural effusions with bibasilar consolidation. Intralobular septal th ickening is noted the lung bases. A tiny hiatal hernia is noted. Liver: The contrast-enhanced liver is normal in size, contour, and attenuation. There is mild to mode rate intrahepatic biliary ductal dilatation. The hepatic veins and portal veins are patent. Gallbladder: Surgically absent. Spleen: Normal in size and attenuation. Pancreas: Moderately atrophic and grossly unremarkable. Adrenal glands: A 1.5 cm low-attenuation left adrenal nodule is unchanged. The right adrenal gland is normal in appearance. Kidneys: The contrast enhanced kidneys demonstrate mild cortical atrophy and are without hydronephros is. The kidneys enhance symmetrically. A 1.3 cm cyst is noted in the interpolar left kidney. Abdominal vasculature: The abdominal aorta is normal in course and caliber noting moderate to advance d atherosclerotic calcification. Bowel: There is postoperative change from sigmoid colon resection with colocolonic anastomosis. No sekou wel obstruction is seen. There is moderate to advanced diverticulosis of the remaining colon without CT evidence of acute diverticulitis. The appendix is well-visualized and normal. Peritoneum: There is no intraperitoneal free air or abdominal ascites. Lymphadenopathy: None. Pelvic viscera: The bladder is normal in appearance and filled with excreted IV contrast. The uterus is surgically absent. No adnexal lesion is seen. Skeletal structures: The skeletal structures are osteopenic. There is moderate lumbosacral spondylosi s and mild scoliosis. No lytic or blastic lesions are seen. IMPRESSION: 1. There is mild to moderate intrahepatic biliary ductal dilatation, which has increased from yesterd ay. This is of indeterminant etiology and significance, and may be related to fasting state status po st cholecystectomy. Correlate with clinical findings and serum bilirubin levels. 2. There is increasing bibasilar airspace consolidation as compared to yesterday. Correlate clinicall y for evidence of pneumonia/aspiration pneumonitis. 3. Small pleural effusions are new from yesterday. 4. Intralobular septal thickening is noted at the lung bases. Correlate clinically for evidence of co ngestive change/fluid overload. 5. Moderate to advanced colonic diverticulosis without CT evidence of acute diverticulitis. 6. There is postoperative change from previous sigmoid colon resection with colocolonic anastomosis. No bowel obstruction is seen. 7. Additional findings as above. ACT 112: Negative or not required by law. Electronically signed by: Lars Amaya M.D. 03/11/2020 10:26 AM
[2020-03-11 10:34] LABS: Basophils # (auto) 0.01 K/uL (0-0.2); Basophils % (auto) 0.1 %; Eosinophils # (auto) 0.28 K/uL (0-0.5); Eosinophils % (auto) 1.5 %; Hematocrit (blood only) 35.4 % (37-47); Hemoglobin 11.9 g/dL (12.0-16.0); Immature Granulocytes # (auto) 0.05 K/uL (0.00-0.02); Immature Granulocytes % (auto) 0.3 %; Lymphocytes # (auto) 0.81 K/uL (1.2-3.4); Lymphocytes % (auto) 4.4 %; Mean Corpuscular Hemoglobin 28.1 pg (25-34); Mean Corpuscular Volume 83.5 fL (80-100); Mean Platelet Volume 9.5 fL (7.4-10.4); Monocytes # (auto) 0.92 K/uL (0.11-0.59); Neutrophils # (auto) 16.37 K/uL (1.4-6.5); Neutrophils % (auto) 88.7 %; Platelet Count 218 K/uL (130-400); RDW Coefficient of Variation 13.7 % (11.5-14.5); RDW Standard Deviation 41.8 fL (36.4-46.3); Red Blood Count 4.24 M/uL (4.2-5.4); White Blood Count 18.44 K/uL (4.8-10.8)
[2020-03-11 10:35] LABS: Mean Corpuscular Hgb Conc 33.6 g/dL (32-36)
[2020-03-11] MEDS ORDERED: ondansetron HCL 6 MG in DEXTROSE 5% 50 ML IV PRN (10:42)
[2020-03-11] MEDS ORDERED: PIPERACILL/TAZOBAC CONSULT ACTIVE PRN (10:47)
--- NOTE | 2020-03-11 10:50 | Hospitalist Progress Note ---
Date of Service March 11, 2020 Assessment & Plan (1) Abdominal pain: Pt is 89 y/o F with PMH HTN, HLD, paroxysmal atrial fibrillation on Eliquis, LBBB, cerebral carotid artery aneurysm clipped in 1988, right lung CA s/p surgery presented to ER with c/o mid and lower abdominal pain x 1 day with nausea. Developed worsening of abdominal pain at this morning Abdomen is severely tender, unable to take deep breath due to abdominal pain Stat portable CT abdomen pelvis ordered to rule out acute abdominal pathology(obstruction/bowel ischemia, perforation) Stat lab shows worsening of leukocytosis 18 K with left shift, mild elevation of procalcitonin, 0.88, normal lactic acid CT abdomen pelvis shows no acute abdominal pathology no obstruction, no evidence of bowel wall swelling/inflammation, no evidence of perforated viscus Mild progression of dilatation of intrahepatic biliary ducts compared with a CT abdomen pelvis with contrast done yesterday 03/10/2020 Patient is status post cholecystectomy Patient is continue with IV Zosyn Plan of care discussed with GI, plan for MRCP to assess intrahepatic biliary duct Continue to monitor patient in PCU, Strict n.p.o. IV fluid discontinued at chest x-ray shows progression of pulmonary congestion, Patient reports orthopnea/hypoxia, I's and O's reveals patient is positive fluid balance of 2 L 40 mg of IV Lasix ordered (2) UTI (urinary tract infection): Recent UTI 03/02/20. Denies current dysuria, hematuria, urinary frequency. Today UA: trace leuk esterace, 10-30 WBC, >30 epithel, no bacteria On IV Zosyn, lactic acid negative (3) History of TIA (transient ischemic attack): (4) HTN (hypertension): Paroxysmal A. fib. On metoprolol and Cardizem, p.o. medication kept on hold for acute abdomen Ordered for IV metoprolol Eliquis kept on hold for acute abdomen Went into brief episode of rapid A. fib RVR secondary to severe abdominal pain shortness of breath and hypoxia. Converted back to normal sinus rhythm heart rate between 90s/low 100 after patient clinically Need to monitor in telemetry floor (5) Aspiration pneumonia: CT shows progression of bibasilar consolidation with small pleural effusion, Infiltrate noted to be worsened compared to CT scan done 24 hours earlier. Possible aspiration? Patient has been having intractable nausea dry heaving, vomiting with mild biliary emesis Continue Zosyn Follow blood culture (6) Heart failure, diastolic, with acute decompensation: Developed orthopnea/hypoxia, requiring 2 L oxygen Chest x-ray shows pulmonary congestion worsened since yesterday's chest x-ray Patient was given IV fluids on admission secondary to possible dehydration presentation with nausea vomiting pain. Order to hold IV fluids 1 dose of IV Lasix Echo done earlier this month showed grade 1 diastolic dysfunction with normal ejection fraction no wall motion abnormality Continue to monitor volume status Saeed inserted for accurate measurement of intake and output CODE STATUS: Full code DVT prophylaxis, patient been on Eliquis for history of A. fib-on hold due to acute GI symptoms. Disposition continue to monitor in the PCU will need PT OT evaluation when medically stable. Plan of care discussed with patient's Mr Jose Payan and daughter Marianela ( lives in [place]) over phone Admission and Anticipated Discharge Date Admission Date: March 10, 2020 Subjective Follow-up visit for abdominal pain, nausea vomiting/shortness of breath: Patient complains of severe/diffuse abdominal pain, 10 out of 10, along with shortness of breath, difficulty breathing, orthopnea Patient seen at bedside, Found patient to be in severe distress, due to abdominal pain, hypoxic requiring 2 L oxygen via nasal cannula, having a dry heaving, Given IV Dilaudid for pain control, IV Zofran for antiemetic, continue broad- spectrum antibiotic, CT abdomen pelvis with contrast to rule out acute abdomen Review of Systems Review of Systems: All systems reviewed & are unremarkable except as noted in Subjective Physical Exam Constitutional: WD/WN, vitals as above + acute distress (Abdominal pain/nausea/dry heaving shortness of breath) and + ill appearing Eyes: + anicteric sclerae ENMT: external ear and nose normal, oropharynx normal Neck: trachea midline, no thyromegaly Respiratory: + respiratory distress and + tachypneic; no cough Auscultation: + diminished lung sounds and + crackles Cardiovascular: Rate/Rhythm: + irregularly irregular Extremities: no edema Gastrointestinal (Abdomen): Inspection/Auscultation: + hypoactive bowel sounds; abdomen not distended Percussion/Palpation: + abdomen tender and + guarding Skin: no rashes, warm and dry Neurologic: PERRL, EOMI, accommodation nl, no face palsy, no dysarthria awake; no focal motor deficits Psychiatric: Orientation: alert and oriented x 3 Affect: + anxious affect Results & Data Results & Data ([facility]) Vital Signs (Past 12 Hours) Vital Signs Temp Pulse Pulse Resp BP BP Pulse Ox 03/11/20 10:08 56 L 03/11/20 07:06 36.9 C 64 16 96 03/11/20 06:26 58 L 102/53 L 03/11/20 04:57 59 L 107/61 03/11/20 04:24 36.6 C 63 17 89/48 L 93 03/11/20 03:05 78/43 L 79/54 L 03/11/20 01:05 88 18 97/58 L 95 03/11/20 00:30 98 H 28 H 94/55 L 90 03/11/20 00:15 03/11/20 00:00 36.6 C 81 18 109/64 90 Pulse Ox 03/11/20 10:08 03/11/20 07:06 03/11/20 06:26 03/11/20 04:57 03/11/20 04:24 03/11/20 03:05 03/11/20 01:05 03/11/20 00:30 03/11/20 00:15 90 03/11/20 00:00
[2020-03-11] MEDS ORDERED: PROMETHAZINE HCL 12.5 MG in SODIUM CHLORIDE 0.9% 50 ML IV ONE (11:00)
[2020-03-11] MEDS ORDERED: DOXYCYCLINE HYCLATE 100 MG in DEXTROSE 5% 100 ML IV SCH (11:00)
[2020-03-11] MEDS ORDERED: PIPERACILLIN/TAZOBACTAM 3.375 GM in DEXTROSE 5% 100 ML IV ONE (11:15)
--- NOTE | 2020-03-11 11:16 | Electrocardiogram Report ---
Test Reason : Blood Pressure : / mmHG Vent. Rate : 078 BPM Atrial Rate : 300 BPM P-R Int : 000 ms QRS Dur : 148 ms QT Int : 424 ms P-R-T Axes : 000 -49 087 degrees QTc Int : 483 ms Atrial fibrillation Left axis deviation Left bundle branch block Abnormal ECG When compared with ECG of 10-MAR-2020 11:02, Atrial fibrillation has replaced Sinus rhythm Confirmed by Thang Roy ([id number]) on 03/11/2020 11:16:11 AM Referred By: REFERRED SELF Confirmed By:Thang Roy
--- NOTE | 2020-03-11 11:19 | Electrocardiogram Report ---
Test Reason : Blood Pressure : / mmHG Vent. Rate : 059 BPM Atrial Rate : 059 BPM P-R Int : 134 ms QRS Dur : 142 ms QT Int : 484 ms P-R-T Axes : -18 -43 083 degrees QTc Int : 479 ms Sinus bradycardia Left axis deviation Left bundle branch block Abnormal ECG When compared with ECG of 11-MAR-2020 00:25, (unconfirmed) Sinus rhythm has replaced Atrial fibrillation Confirmed by Thang Roy ([id number]) on 03/11/2020 11:19:33 AM Referred By: REFERRED SELF Confirmed By:Thang Roy
[2020-03-11] MEDS ORDERED: bisacodyL 10 MG SUPP PR PRN (11:22)
--- NOTE | 2020-03-11 12:20 | Communication Note ---
Date of Service: March 11, 2020 Discussed case with gastroenterology Dr. Samano Given patient's severe abdominal pain intractable nausea vomiting overall worsening clinical scenario does not correlate with ischemic colitis. Patient was on Eliquis, lactic acid within normal limit CT abdomen pelvis shows no evidence of bowel obstruction : There is mild to moderate intrahepatic biliary ductal dilatation, which has increased from yesterday. bilirubin level elevated Worsening of leukocytosis noted WBC 18 K, pro-Dick elevated Per GI Need to rule out evidence of cholangitis. Patient needs a stat MRCP pt has Zio Patch , recently placed for atrial fibrillation Discussed with on-call cardiology Dr. 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 Rere Manuel MD
--- NOTE | 2020-03-11 12:28 | Gastrointestinal Consultation ---
Date of Consultation March 11, 2020 Assessment & Plan (1) Acute upper abdominal pain: Please obtain an MRCP to r/o choledocholithiasis and in the setting of leukocytosis, r/o cholangitis. Stat MRCP. Repeat LFTs and Lipase. Obtain Mesenteric Doppler US in view of extensive atherosclerosis. She is already on ABx. Can use Miralax for constipation. Further plan based on MRCP and repeat Labs. (2) Nausea: (3) Constipation, chronic: (4) Abnormal LFTs: History of Present Illness Attending Physician: Rere Manuel MD 89 years old female patient with comorbids of HTN, DLD, paroxysmal atrial fibrillation on Eliquis, LBBB, cHx of lung CA, presented with abdominal pain, s/p surgery presented with abdominal pain and SOB, initial CT scan abdomen showed ? Pneumonia, Biliary ductal dilation post cholecystectomy, HH and mild constipation. Today reports an episode of 10/[address] scan was repeated and report indicates worsening IHBDD, her initial labs showed elevated t.bili but otherwise normal LFTs and lipase. She was given Dilaudid and her pain now resolved. She had nausea and vomiting which now resolved. No diarrhea and last BM was yesterday. Allergies Allergy/AdvReac Type Severity Reaction Status Date / Time adhesive Allergy Unknown RASH, Verified 03/10/20 11:13 REDDNESS AT SITE codeine Allergy Unknown RASH, Verified 03/10/20 11:13 SEVERE ITCHING metronidazole Allergy Unknown SEVERE Verified 03/10/20 11:13 YEAST/VAGINAL INFX morphine Allergy Unknown IRREGULAR Verified 03/10/20 11:13 HEART RATE, EXTREME SEDATION propoxyphene AdvReac Unknown A-FIB Verified 03/10/20 11:13 Home Medications Medication Instructions Recorded Confirmed Type atorvastatin [Lipitor] 20 mg PO HS 01/30/18 03/10/20 History lisinopril 5 mg PO QAM 01/30/18 03/10/20 History omeprazole 20 mg PO QAM 01/30/18 03/10/20 History verapamil 240 mg PO QPM 01/30/18 03/10/20 History melatonin 10 mg tablet 10 mg PO HS PRN tab 10/26/18 02/29/20 History Eliquis 5 mg PO BID 12/31/19 03/10/20 History calcium carbonate [Calcium 600] 600 mg PO 3XWK 12/31/19 03/10/20 History diphenhydramine HCl [Sleep Aid 25 mg PO HS PRN 12/31/19 03/10/20 History (diphenhydramine)] magnesium oxide 400 mg PO QAM 12/31/19 03/10/20 History metoprolol succinate 12.5 mg PO QAM 12/31/19 03/10/20 History amoxicillin 500 mg tablet 2,000 mg PO ONCE PRN #4 tab 01/09/20 03/10/20 Rx Glucosamine Plus Vitamin D3 1 tab PO QAM 03/10/20 03/10/20 History docusate sodium [Stool Softener] 100 mg PO HS PRN 03/10/20 03/10/20 History omega 2-tpw-hhk-fish oil [Fish Oil] 2 cap PO BID 03/10/20 03/10/20 History Patient History Medical History (Updated 03/11/20 @ 12:33 by Sonny Martinez MD) 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 Dysarthria Paroxysmal atrial fibrillation Rectal bleeding Status post lung surgery (08/03/12) TIA (transient ischemic attack) Surgical History H/O section H/O hemorrhoidectomy History of lung surgery Hx of cholecystectomy Family History Other Abdominal aortic aneurysm Stroke Social History Smoking Status: Never smoker Second Hand Exposure: No; Hx Alcohol Use: Yes Alcohol type: wine Hx Substance Use: No Preferred Language: German Communication Ability: Effective Blurb Writer Required: No Beliefs That Will Affect Care: Moravian marital status: Current Living Situation: Spouse Other Information That Helps Us Care for You: No Feels Safe at Home: Yes Safety Concerns: Feels Safe At This Time Assistive Devices: Oxygen - Continuous Review of Systems Constitutional: no fever, no chills, no fatigue and no weight loss Eyes: no eye pain and no worsening vision Ear, Nose, Mouth, Throat: no tinnitus, no dizziness, no nasal discharge and no epistaxis Respiratory: no cough, no dyspnea, no dyspnea on exertion and no wheezing Cardiovascular: no chest pain, no orthopnea, no palpitations and no edema Gastrointestinal: as per Subjective / HPI Genitourinary: no dysuria, no urinary frequency, no urinary incontinence and no hematuria Musculoskeletal: no stiffness and no myalgia Neurologic: no localized weakness, no paralysis, no tremor(s) and no headache(s) Endocrine: no polydipsia and no polyuria Hematologic / Lymphatic: no easy bleeding and no night sweats Physical Exam Constitutional: + well hydrated, cooperative and comfortable Eyes: PERRL, conjunctivae normal, anicteric sclerae ENMT: external ear and nose normal, oropharynx normal Neck: normal visual inspection and trachea midline Respiratory: normal respiratory effort, lungs clear to auscultation Auscultation: no wheezes Cardiovascular: RRR, no murmur, no edema Gastrointestinal (Abdomen): normal bowel sounds, soft, nontender, no hepatosplenomegaly Musculoskeletal: no cyanosis or clubbing, extremities motor strength 5/5 Skin: no rashes, warm and dry Neurologic: awake; no focal motor deficits Motor/Sensory: no tremor Results & Data ([facility]) Vital Signs (Past 12 Hours) Vital Signs Temp Pulse Pulse Resp BP BP Pulse Ox 03/11/20 12:13 36.3 C L 88 18 110/58 L 93 03/11/20 10:08 56 L 03/11/20 07:06 36.9 C 64 16 96 03/11/20 06:26 58 L 102/53 L 03/11/20 04:57 59 L 107/61 03/11/20 04:24 36.6 C 63 17 89/48 L 93 03/11/20 03:05 78/43 L 79/54 L 03/11/20 01:05 88 18 97/58 L 95 03/11/20 00:30 98 H 28 H 94/55 L 90 Laboratory Results Laboratory Results - last 24 hr 03/10/20 03/11/20 03/11/20 10:35 04:49 04:49 WBC 16.20 H RBC 4.21 Hgb 12.1 Hct 35.0 L MCV 83.1 MCH 28.7 MCHC 34.6 RDW Std Deviation 41.5 RDW Coeff of Coleman 13.6 Plt Count 206 MPV 9.1 Immature Gran % (Auto) 0.2 Neut % (Auto) 89.1 Lymph % (Auto) 3.0 Rich % (Auto) 6.3 Eos % (Auto) 1.4 Baso % (Auto) 0.0 Neut # (Auto) 14.42 H Lymph # (Auto) 0.49 L Rich # (Auto) 1.02 H Eos # (Auto) 0.23 Baso # (Auto) 0.00 Immature Gran # (Auto) 0.04 H D-Dimer Sodium 137 Potassium 4.0 Chloride 110 H Carbon Dioxide 22 Anion Gap 5.0 BUN 17 Creatinine 0.67 Est Cr Clr Drug Dosing 51.1 Est GFR ( Amer) 91.6 Est GFR (Non-Af Amer) 79.0 BUN/Creatinine Ratio 26.2 H Glucose 103 H Lactate Calcium 7.8 L Total Bilirubin Direct Bilirubin AST ALT Alkaline Phosphatase Troponin I < 0.015 NT-Pro-B Natriuret Pep Total Protein Albumin Lipase 80 Procalcitonin 03/11/20 03/11/20 03/11/20 04:49 09:34 09:34 WBC RBC Hgb Hct MCV MCH MCHC RDW Std Deviation RDW Coeff of Coleman Plt Count MPV Immature Gran % (Auto) Neut % (Auto) Lymph % (Auto) Rich % (Auto) Eos % (Auto) Baso % (Auto) Neut # (Auto) Lymph # (Auto) Rich # (Auto) Eos # (Auto) Baso # (Auto) Immature Gran # (Auto) D-Dimer Sodium Potassium Chloride Carbon Dioxide Anion Gap BUN Creatinine Est Cr Clr Drug Dosing Est GFR ( Amer) Est GFR (Non-Af Amer) BUN/Creatinine Ratio Glucose Lactate 1.0 1.0 Calcium Total Bilirubin Direct Bilirubin AST ALT Alkaline Phosphatase Troponin I NT-Pro-B Natriuret Pep 387 Total Protein Albumin Lipase Procalcitonin 03/11/20 03/11/20 03/11/20 09:34 09:39 09:39 WBC RBC Hgb Hct MCV MCH MCHC RDW Std Deviation RDW Coeff of Coleman Plt Count MPV Immature Gran % (Auto) Neut % (Auto) Lymph % (Auto) Rich % (Auto) Eos % (Auto) Baso % (Auto) Neut # (Auto) Lymph # (Auto) Rich # (Auto) Eos # (Auto) Baso # (Auto) Immature Gran # (Auto) D-Dimer 740 H* Sodium Potassium Chloride Carbon Dioxide Anion Gap BUN Creatinine Est Cr Clr Drug Dosing Est GFR ( Amer) Est GFR (Non-Af Amer) BUN/Creatinine Ratio Glucose Lactate Calcium Total Bilirubin Direct Bilirubin AST ALT Alkaline Phosphatase Troponin I < 0.015 NT-Pro-B Natriuret Pep Total Protein Albumin Lipase Procalcitonin 0.88 H 03/11/20 03/11/20 09:39 10:23 WBC 18.44 H RBC 4.24 Hgb 11.9 L Hct 35.4 L MCV 83.5 MCH 28.1 MCHC 33.6 RDW Std Deviation 41.8 RDW Coeff of Coleman 13.7 Plt Count 218 MPV 9.5 Immature Gran % (Auto) 0.3 Neut % (Auto) 88.7 Lymph % (Auto) 4.4 Rich % (Auto) 5.0 Eos % (Auto) 1.5 Baso % (Auto) 0.1 Neut # (Auto) 16.37 H Lymph # (Auto) 0.81 L Rich # (Auto) 0.92 H Eos # (Auto) 0.28 Baso # (Auto) 0.01 Immature Gran # (Auto) 0.05 H D-Dimer Sodium Potassium Chloride Carbon Dioxide Anion Gap BUN Creatinine Est Cr Clr Drug Dosing Est GFR ( Amer) Est GFR (Non-Af Amer) BUN/Creatinine Ratio Glucose Lactate Calcium Total Bilirubin Pending Direct Bilirubin Pending AST Pending ALT Pending Alkaline Phosphatase Pending Troponin I NT-Pro-B Natriuret Pep Total Protein Pending Albumin Pending Lipase Procalcitonin
[2020-03-11 12:40] LABS: Albumin Level 2.6 gm/dl (3.4-5.0); Bilirubin Direct 0.4 mg/dl (0-0.2); Bilirubin,Total 1.3 mg/dl (0.2-1)
[2020-03-11] MEDS ORDERED: POLYETHYLENE (MIRALAX) 17 GM PACK PO PRN (13:00)
[2020-03-11 13:21] LABS: Magnesium 2.3 mg/dl (1.8-2.4)
--- NOTE | 2020-03-11 14:10 | Electrocardiogram Report ---
Test Reason : Blood Pressure : / mmHG Vent. Rate : 069 BPM Atrial Rate : 069 BPM P-R Int : 152 ms QRS Dur : 146 ms QT Int : 452 ms P-R-T Axes : 061 -34 089 degrees QTc Int : 484 ms Normal sinus rhythm Left axis deviation Left bundle branch block Abnormal ECG When compared with ECG of 11-MAR-2020 04:33, No significant change was found Confirmed by Thang Roy ([id number]) on 03/11/2020 2:10:37 PM Referred By: REFERRED SELF Confirmed By:Thang Roy
--- NOTE | 2020-03-11 15:24 | Gastroenterology Progress Note ---
Date of Service March 11, 2020 Assessment & Plan Admission and Anticipated Discharge Date Admission Date: March 11, 2020 Subjective LFTs normal, T.bili 1.3 and direct is normal. Lipase normal. Unlikely has CBD stones or biliary related pathology. She can not get MRCP due to prior brain anyurysmal clip. Plan: Obtain Ultrasound abdomen. Plan for EGD/EUS as OP. Results & Data ([facility]) Vital Signs (Past 12 Hours) Vital Signs Temp Pulse Pulse Resp BP BP Pulse Ox 03/11/20 14:52 36.5 C 86 18 111/53 L 90 03/11/20 12:13 36.3 C L 88 18 110/58 L 93 03/11/20 10:08 56 L 03/11/20 07:06 36.9 C 64 16 96 03/11/20 06:26 58 L 102/53 L 03/11/20 04:57 59 L 107/61 03/11/20 04:24 36.6 C 63 17 89/48 L 93
[2020-03-11] MEDS ORDERED: CEFEPIME 2,000 MG in SYRINGE 0 ML IV SCH (16:00)
[2020-03-11] MEDS: PIPERACILLIN/TAZOBACTAM 3.375 GM in DEXTROSE 5% 100 ML IV SCH (16:55)
[2020-03-11] MEDS ORDERED: METOPROLOL TARTRATE 1 MG/ML VIAL IV SCH (18:00)
--- NOTE | 2020-03-11 19:07 | Communication Note ---
Date of Service: March 11, 2020 Patient's abdominal pain/nausea has markedly improved. Order for clear liquid diet, MRCP of abdomen could not be done due to presence of prior brain aneurysm clip. Discussed with GI, as patient's LFTs are normal, bilirubin improved from 1.71.3 Intrahepatic cholangitis very unlikely. Recommends continue supportive care Advance diet as tolerated Aggressive bowel regimen for constipation Patient will be seen by GI in the clinic in 4-6 weeks for possible endoscopic ultrasound. Plan of care discussed with patient and her daughter Marianela Lux phone number #[phone], comfortable with the treatment plan. All question answered Rere Manuel MD
--- NOTE | 2020-03-11 20:13 | Ultrasound Report ---
DOPPLER ULTRASOUND OF THE MESENTERIC VASCULATURE CLINICAL HISTORY: Generalized abdominal pain. COMPARISON STUDY: Abdominal CT dated 03/11/2020. FINDINGS: Real-time, grayscale, and color Doppler sonography of the mesenteric vasculature is perform ed. Atherosclerotic plaque and irregularity is seen throughout the abdominal aorta. The abdominal aor ta is patent with velocities measuring up to 112 cm/s. The celiac trunk is patent with velocities jason suring up to 200 cm/s. The superior mesenteric artery is patent with velocities measuring up to 251 c m/s. IMPRESSION: 1. The mesenteric vessels are patent. 2. Mildly elevated velocities within the celiac trunk and the superior mesenteric artery are likely a rtifactual. These were much better assessed and shown to be widely patent on today's abdominal CT sca n. Electronically signed by: Lars Amaya M.D. 03/11/2020 8:12 PM
[2020-03-11] MEDS: POLYETHYLENE (MIRALAX) 17 GM PACK PO SCH (20:15)
[2020-03-11] MEDS: ATORVASTATIN 20 MG TAB PO SCH (20:17)
[2020-03-11] MEDS: VERAPAMIL HCL 240 MG TABCR PO SCH (20:17)
--- NOTE | 2020-03-11 20:31 | Ultrasound Report ---
DOPPLER ULTRASOUND OF THE HEPATIC AND PORTAL VASCULATURE CLINICAL HISTORY: Generalized abdominal pain. COMPARISON STUDY: Abdominal CT performed the same day 03/11/2020. FINDINGS: Real-time, grayscale, and color Doppler sonography of the hepatic and portal vasculature is performed. The splenic vein is patent. The main portal vein is patent with normal direction of flow. Velocities within the main portal vein measure up to 18 cm/s. The intrahepatic portal veins are de la vega nt. The hepatic artery is patent with velocities measuring up to 125 cm/s. The hepatic veins are de la vega nt with normal direction of flow and normal venous waveforms. The IVC is patent. IMPRESSION: Normal Doppler assessment of the hepatic and portal veins. These were also shown to be wi shreya patent on today's CT scan. Electronically signed by: Lars Amaya M.D. 03/11/2020 8:30 PM
[2020-03-11 22:16] LABS: Influenza A virus by PCR Negative (Negative); Influenza B virus by PCR Negative (Negative); RSV by PCR Negative (Negative)
[2020-03-12] MEDS: PIPERACILLIN/TAZOBACTAM 3.375 GM in DEXTROSE 5% 100 ML IV SCH ×3 (00:20→16:55)
[2020-03-12 07:56] LABS: Basophils # (auto) 0.02 K/uL (0-0.2); Basophils % (auto) 0.2 %; Eosinophils # (auto) 0.36 K/uL (0-0.5); Eosinophils % (auto) 3.3 %; Hematocrit (blood only) 35.6 % (37-47); Hemoglobin 11.8 g/dL (12.0-16.0); Immature Granulocytes # (auto) 0.02 K/uL (0.00-0.02); Immature Granulocytes % (auto) 0.2 %; Lymphocytes # (auto) 0.99 K/uL (1.2-3.4); Mean Corpuscular Hemoglobin 27.3 pg (25-34); Mean Corpuscular Hgb Conc 33.1 g/dL (32-36); Mean Corpuscular Volume 82.2 fL (80-100); Mean Platelet Volume 9.9 fL (7.4-10.4); Monocytes # (auto) 0.84 K/uL (0.11-0.59); Monocytes % (auto) 7.6 %; Neutrophils # (auto) 8.81 K/uL (1.4-6.5); Neutrophils % (auto) 79.7 %; Platelet Count 228 K/uL (130-400); RDW Coefficient of Variation 13.5 % (11.5-14.5); Red Blood Count 4.33 M/uL (4.2-5.4); White Blood Count 11.04 K/uL (4.8-10.8)
[2020-03-12] MEDS: lisinopril 5 MG TAB PO SCH (08:01)
[2020-03-12] MEDS: APIXABAN 5 MG TABLET PO SCH ×2 (08:01→20:24)
[2020-03-12] MEDS: METOPROLOL SUCC 25MG EXT REL TAB PO SCH (08:02)
[2020-03-12] MEDS: PANTOprazole 40 MG TAB PO SCH (08:02)
[2020-03-12] MEDS: POLYETHYLENE (MIRALAX) 17 GM PACK PO SCH ×3 (08:07→11:08)
[2020-03-12 09:03] LABS: Albumin Level 2.4 gm/dl (3.4-5.0); Bilirubin Direct 0.3 mg/dl (0-0.2); Bilirubin,Total 0.8 mg/dl (0.2-1); Calcium 8.6 mg/dl (8.5-10.1); Creatinine Clr Calc Pharmacy 49.6 ml/min; Est GFR (African American) 90.7; Est GFR (Non-African American) 78.3; Magnesium 2.1 mg/dl (1.8-2.4); Potassium 3.4 mmol/L (3.5-5.1); Total Protein 5.9 gm/dl (6.4-8.2)
[2020-03-12] MEDS: MAGNESIUM OXIDE 400 MG TAB PO SCH (10:52)
--- NOTE | 2020-03-12 12:13 | Communication Note ---
Date of Service: March 12, 2020 Lab reviewed : improvement of leukocytosis WBC 11 K today bilirubin normalized with normal LFT's portal venous ultrasound shows no evidence of thrombosis vitals been stable remain in sinus , rate controlled will advance diet to low fat increase activity as tolerated Rere Manuel MD
--- NOTE | 2020-03-12 12:19 | Gastroenterology Progress Note ---
Date of Service March 12, 2020 Assessment & Plan (1) Acute upper abdominal pain: This is an 89 y/o female with h/o PAF on Eliquis, admitted with abd pain, and CT showed ? pneumonia, amor dil s/p donald and mild constipation. She had mildly elevated Tbili but otherwise LFTS, lipase, H&H WNL. Tbili has normalized. She is not able to have MRCP due presence of brain aneurysm clips. Mesenteric and portal vein US demonstrate patent vessels. Labs today are stable. Abd is soft. - Will arrange outpt EGD/EUS to evaluate amor dil and abd pain - Will defer mgmt of pneumonia to primary team - Diet as tolerated Thank you for allowing us to participate in the care of this patient. Please ca ll with any acute changes, questions or concerns. Please see addendum below with additional recommendation from my supervising physician. Admission and Anticipated Discharge Date Admission Date: March 11, 2020 Supervising Physician Co-Signing Physician Notes Late entry: Patient was seen and examined on 03/12 with Gracie Navarro PA-C whose note reflects our findings and plan. Subjective Pt seen in f/u abd pain, feeling improved today, had some diarrhea earlier today. Denies hematemesis, melena, hematochezia, fever, chills, CP, SOB. Review of Systems Review of Systems: All systems reviewed & are unremarkable except as noted in HPI & below Physical Exam Constitutional: WD/WN, vitals as above Respiratory: normal respiratory effort Cardiovascular: Rate/Rhythm: regular rate and regular rhythm Gastrointestinal (Abdomen): Inspection/Auscultation: abdomen normal to inspection and normal bowel sounds Percussion/Palpation: abdomen soft; abdomen nontender and no guarding nondistended Skin: no rashes, warm and dry Psychiatric: A+Ox3, euthymic affect Results & Data ([facility]) Vital Signs (Past 12 Hours) Vital Signs Temp Pulse Pulse Resp BP BP Pulse Ox 03/12/20 12:00 37.2 C 92 H 18 104/62 97 03/12/20 09:59 67 03/12/20 09:53 03/12/20 07:47 36.8 C 74 17 115/60 93 03/12/20 04:05 37.4 C 83 18 132/66 90 Pulse Ox 03/12/20 12:00 03/12/20 09:59 03/12/20 09:53 93 03/12/20 07:47 03/12/20 04:05 Laboratory Results 03/12/20 03/12/20 03/11/20 Range/Units 07:18 07:18 21:20 WBC 11.04 H (4.8-10.8) K/uL RBC 4.33 (4.2-5.4) M/uL Hgb 11.8 L (12.0-16.0) g/dL Hct 35.6 L (37-47) % MCV 82.2 (80-100) fL MCH 27.3 (25-34) pg MCHC 33.1 (32-36) g/dL RDW Std Deviation 41.0 (36.4-46.3) fL RDW Coeff of Coleman 13.5 (11.5-14.5) % Plt Count 228 (130-400) K/uL MPV 9.9 (7.4-10.4) fL Immature Gran % (Auto) 0.2 % Neut % (Auto) 79.7 % Lymph % (Auto) 9.0 % [place] % (Auto) 7.6 % Eos % (Auto) 3.3 % Baso % (Auto) 0.2 % Neut # (Auto) 8.81 H (1.4-6.5) K/uL Lymph # (Auto) 0.99 L (1.2-3.4) K/uL [place] # (Auto) 0.84 H (0.11-0.59) K/uL Eos # (Auto) 0.36 (0-0.5) K/uL Baso # (Auto) 0.02 (0-0.2) K/uL Immature Gran # (Auto) 0.02 (0.00-0.02) K/uL Sodium 135 L (136-145) mmol/L Potassium 3.4 L (3.5-5.1) mmol/L Chloride 104 (98-107) mmol/L Carbon Dioxide 25 (21-32) mmol/L Anion Gap 6.0 (3-11) BUN 18 (7-18) mg/dl Creatinine 0.69 (0.6-1.2) mg/dl Est Cr Clr Drug Dosing 49.6 ml/min Est GFR ( Amer) 90.7 Est GFR (Non-Af Amer) 78.3 BUN/Creatinine Ratio 26.0 H (10-20) Glucose 100 H (70-99) mg/dl Calcium 8.6 (8.5-10.1) mg/dl Magnesium 2.1 (1.8-2.4) mg/dl Total Bilirubin 0.8 D (0.2-1) mg/dl Direct Bilirubin 0.3 H (0-0.2) mg/dl AST 12 L (15-37) U/L ALT 25 (12-78) U/L Alkaline Phosphatase 89 (45-117) U/L Total Protein 5.9 L (6.4-8.2) gm/dl Albumin 2.4 L (3.4-5.0) gm/dl Lipase 103 (73-393) U/L Influ A Molecular Assay Negative (Negative) Influ B Molecular Assay Negative (Negative) RSV (Molecular) Negative (Negative) 03/11/20 03/11/20 Range/Units 09:39 09:39 WBC (4.8-10.8) K/uL RBC (4.2-5.4) M/uL Hgb (12.0-16.0) g/dL Hct (37-47) % MCV (80-100) fL MCH (25-34) pg MCHC (32-36) g/dL RDW Std Deviation (36.4-46.3) fL RDW Coeff of Coleman (11.5-14.5) % Plt Count (130-400) K/uL MPV (7.4-10.4) fL Immature Gran % (Auto) % Neut % (Auto) % Lymph % (Auto) % [place] % (Auto) % Eos % (Auto) % Baso % (Auto) % Neut # (Auto) (1.4-6.5) K/uL Lymph # (Auto) (1.2-3.4) K/uL [place] # (Auto) (0.11-0.59) K/uL Eos # (Auto) (0-0.5) K/uL Baso # (Auto) (0-0.2) K/uL Immature Gran # (Auto) (0.00-0.02) K/uL Sodium (136-145) mmol/L Potassium (3.5-5.1) mmol/L Chloride (98-107) mmol/L Carbon Dioxide (21-32) mmol/L Anion Gap (3-11) BUN (7-18) mg/dl Creatinine (0.6-1.2) mg/dl Est Cr Clr Drug Dosing ml/min Est GFR ( Amer) Est GFR (Non-Af Amer) BUN/Creatinine Ratio (10-20) Glucose (70-99) mg/dl Calcium (8.5-10.1) mg/dl Magnesium 2.3 (1.8-2.4) mg/dl Total Bilirubin 1.3 H (0.2-1) mg/dl Direct Bilirubin 0.4 H (0-0.2) mg/dl AST 15 (15-37) U/L ALT 17 (12-78) U/L Alkaline Phosphatase 72 (45-117) U/L Total Protein 6.0 L (6.4-8.2) gm/dl Albumin 2.6 L (3.4-5.0) gm/dl Lipase 91 (73-393) U/L Influ A Molecular Assay (Negative) Influ B Molecular Assay (Negative) RSV (Molecular) (Negative)
[2020-03-12] MEDS ORDERED: POLYETHYLENE (MIRALAX) 17 GM PACK PO PRN (15:16)
[2020-03-12] MEDS ORDERED: POTASSIUM CHLORIDE CRTAB 20 MEQ TABCR PO STA (15:17)
[2020-03-12] MEDS: LACTOBACILLUS ACIDOPHILUS 1 GM PACK PO SCH (16:50)
[2020-03-12] MEDS: FUROSEMIDE 20 MG TAB PO SCH (16:50)
--- NOTE | 2020-03-12 18:17 | Hospitalist Progress Note ---
Date of Service March 12, 2020 Assessment & Plan (1) Abdominal pain: Pt is 89 y/o F with PMH HTN, HLD, paroxysmal atrial fibrillation on Eliquis, LBBB, cerebral carotid artery aneurysm clipped in 1988, right lung CA s/p surgery presented to ER with c/o mid and lower abdominal pain x 1 day with nausea. Abdominal pain nausea vomiting. Symptoms has resolved, Appreciate input from gastroenterology, patient's bilirubin level continues to improve, HEAD: Normocephalic, no signs of injury or scalp lesions. LFTs lipase level, MRCP was not done due to presence of intracranial/brain aneurysm clips Mesenteric and portal vein ultrasound demonstrated patent vessels Labs remained stable leukocytosis has improved to 11 K Diet advanced to solid Outpatient follow-up with gastroenterology for EGD and EUS to evaluate intrahepatic biliary duct dilatation and abdominal pain Abdomen is severely tender, unable to take deep breath due to abdominal pain Possible sepsis/due to aspiration pneumonitis. Criteria for sepsis on admission leukocytosis tachycardia hypoxia, tachypnea Source of infection, possible bibasilar lung consolidation, concern for aspiration Patient had recurrent episode of emesis increased risk for aspiration of gastric content Continued with empiric dose of IV Zosyn clinically improved white count is normalized so far cultures been no growth We will discontinue IV Zosyn and transition to oral antibiotics for aspiration pneumonitis possible tomorrow (2) UTI (urinary tract infection): Recent UTI, with positive UA On IV Zosyn follow urine culture (3) History of TIA (transient ischemic attack): Continue statin (4) HTN (hypertension): Paroxysmal A. fib. Remains in sinus rate controlled. Beta-shawn/diltiazem/Eliquis: Continued Severe constipation: Patient had multiple admissions in the past for impacted stool, CT abdomen pelvis was done for severe abdomen also shows fecal retention, Discussed with GI started on scheduled dose of MiraLAX, Had multiple bowel movements with improvement of GI symptoms Change bowel regimen to as needed Patient is on diltiazem/calcium channel shawn shawn for A. fib, can also precipitate severe constipation, Plan to discontinue diltiazem, increase dose of beta-shawn for rate and rhythm control Patient will need to be on scheduled bowel regimen at home to prevent severe constipation Of care discussed with patient, all questions answered (5) Aspiration pneumonia: CT shows progression of bibasilar consolidation with small pleural effusion, Infiltrate noted to be worsened compared to CT scan done 24 hours earlier. Possible aspiration? Patient has been having intractable nausea dry heaving, vomiting with mild biliary emesis Discussion as above (6) Heart failure, diastolic, with acute decompensation: Patient status improved, after diuresis, Clinically much better DC Saeed catheter CODE STATUS: Full code DVT prophylaxis, continue on Eliquis Disposition Clinically much improved, stable to transfer out of PCU today Admission and Anticipated Discharge Date Admission Date: March 11, 2020 Subjective Follow-up visit for abdominal pain/nausea vomiting: GI symptoms has completely resolved No abdominal pain, no vomiting, had intermittent episodes of nausea tolerating diet Multiple bowel movement due to MiraLAX Willing to try solid food Complains of feeling very fatigued and weak No fever or chills no shortness of breath no cough no dyspnea on exertion no chest heaviness or palpitation Review of Systems Review of Systems: All systems reviewed & are unremarkable except as noted in Subjective Physical Exam Constitutional: WD/WN, vitals as above Eyes: + anicteric sclerae ENMT: external ear and nose normal, oropharynx normal Neck: trachea midline, no thyromegaly Respiratory: normal respiratory effort; no cough Auscultation: + diminished lung sounds Cardiovascular: Extremities: no edema Gastrointestinal (Abdomen): normal bowel sounds, soft, nontender, no hepatosplenomegaly Inspection/Auscultation: abdomen not distended Percussion/Palpation: abdomen soft; abdomen nontender Skin: no rashes, warm and dry Neurologic: PERRL, EOMI, accommodation nl, no face palsy, no dysarthria awake; no focal motor deficits Psychiatric: Orientation: alert and oriented x 3 Results & Data Results & Data ([facility]) Vital Signs (Past 12 Hours) Vital Signs Temp Pulse Pulse Resp BP Pulse Ox Pulse Ox 03/12/20 15:04 37.0 C 84 18 95/51 L 90 03/12/20 12:00 37.2 C 92 H 18 104/62 97 03/12/20 09:59 67 03/12/20 09:53 93 03/12/20 07:47 36.8 C 74 17 115/60 93
[2020-03-12] MEDS: ATORVASTATIN 20 MG TAB PO SCH (20:24)
[2020-03-12] MEDS ORDERED: LEVALBUTEROL HCL 0.63 MG/3 ML NEB NEB PRN (21:53)
[2020-03-12] MEDS ORDERED: METOPROLOL TARTRATE 1 MG/ML VIAL IV ONE (22:14)
[2020-03-12] MEDS ORDERED: METOPROLOL TARTRATE 1 MG/ML VIAL IV STA (22:25)
[2020-03-12] MEDS ORDERED: VERAPAMIL HCL 120 MG TABCR PO STA (22:25)
[2020-03-12 22:31] LABS: Basophils # (auto) 0.02 K/uL (0-0.2); Basophils % (auto) 0.2 %; Eosinophils # (auto) 0.54 K/uL (0-0.5); Eosinophils % (auto) 4.8 %; Hematocrit (blood only) 36.8 % (37-47); Hemoglobin 12.6 g/dL (12.0-16.0); Immature Granulocytes # (auto) 0.03 K/uL (0.00-0.02); Immature Granulocytes % (auto) 0.3 %; Lymphocytes # (auto) 1.51 K/uL (1.2-3.4); Lymphocytes % (auto) 13.5 %; Mean Corpuscular Hgb Conc 34.2 g/dL (32-36); Mean Corpuscular Volume 81.8 fL (80-100); Mean Platelet Volume 9.6 fL (7.4-10.4); Monocytes % (auto) 7.2 %; Neutrophils # (auto) 8.28 K/uL (1.4-6.5); Platelet Count 273 K/uL (130-400); RDW Coefficient of Variation 13.4 % (11.5-14.5); RDW Standard Deviation 40.6 fL (36.4-46.3); White Blood Count 11.18 K/uL (4.8-10.8)
[2020-03-12 22:51] LABS: BUN Creatinine Ratio 19.1 (10-20); Blood Urea Nitrogen 14 mg/dl (7-18); Calcium 8.8 mg/dl (8.5-10.1); Carbon Dioxide 27 mmol/L (21-32); Chloride 104 mmol/L (98-107); Creatinine Clr Calc Pharmacy 46.9 ml/min; Est GFR (African American) 85.8; Est GFR (Non-African American) 74.1; Glucose 106 mg/dl (70-99); Potassium 3.6 mmol/L (3.5-5.1); Sodium 137 mmol/L (136-145)
[2020-03-12 23:02] LABS: Phosphorus 1.3 mg/dl (2.5-4.9); Troponin I < 0.015 ng/ml (0-0.045)
[2020-03-12] MEDS ORDERED: SODIUM PHOSPHATE 3 MMOL/1 ML INFUSION IV STA (23:06)
[2020-03-12] MEDS ORDERED: SODIUM PHOSPHATE 30 MMOL in SODIUM CHLORIDE 0.9% 500 ML IV ONE (23:45)
[2020-03-13] MEDS: PIPERACILLIN/TAZOBACTAM 3.375 GM in DEXTROSE 5% 100 ML IV SCH ×2 (01:04→09:54)
[2020-03-13 06:47] LABS: Basophils # (auto) 0.01 K/uL (0-0.2); Basophils % (auto) 0.1 %; Eosinophils # (auto) 0.48 K/uL (0-0.5); Eosinophils % (auto) 6.3 %; Hematocrit (blood only) 33.1 % (37-47); Hemoglobin 11.4 g/dL (12.0-16.0); Immature Granulocytes # (auto) 0.01 K/uL (0.00-0.02); Immature Granulocytes % (auto) 0.1 %; Lymphocytes # (auto) 1.25 K/uL (1.2-3.4); Lymphocytes % (auto) 16.5 %; Mean Corpuscular Hemoglobin 28.1 pg (25-34); Mean Corpuscular Hgb Conc 34.4 g/dL (32-36); Mean Corpuscular Volume 81.5 fL (80-100); Mean Platelet Volume 9.5 fL (7.4-10.4); Monocytes # (auto) 0.47 K/uL (0.11-0.59); Monocytes % (auto) 6.2 %; Neutrophils # (auto) 5.35 K/uL (1.4-6.5); Neutrophils % (auto) 70.8 %; Platelet Count 229 K/uL (130-400); RDW Coefficient of Variation 13.6 % (11.5-14.5); Red Blood Count 4.06 M/uL (4.2-5.4); White Blood Count 7.57 K/uL (4.8-10.8)
--- NOTE | 2020-03-13 06:53 | XRay Report ---
XR chest 1V portable CLINICAL HISTORY: Shortness of breath COMPARISON STUDY: 03/11/2020 FINDINGS: The cardiac and mediastinal contours remain stable. Postsurgical changes are present on the right. There is radiographic evidence of emphysema. Small pleural effusions are suspected. There is chronic interstitial thickening. Minor basilar opacities, atelectasis versus an infectious/inflammato ry processes persist.[ IMPRESSION: No significant change from the prior study. Stable postsurgical changes. Stable emphysema and chronic interstitial thickening. Stable minor basilar opacities. Trace pleural effusions. ACT 112: Negative or not required by law. Electronically signed by: Renzo Sarabia M.D. 03/13/2020 6:52 AM
[2020-03-13 07:13] LABS: Albumin Level 2.1 gm/dl (3.4-5.0); BUN Creatinine Ratio 20.2 (10-20); Bilirubin Direct 0.3 mg/dl (0-0.2); Creatinine Clr Calc Pharmacy 56.1 ml/min; Est GFR (African American) 94.5; Est GFR (Non-African American) 81.5; Potassium 3.2 mmol/L (3.5-5.1)
[2020-03-13 07:18] LABS: Bilirubin,Total 0.9 mg/dl (0.2-1); Total Protein 5.7 gm/dl (6.4-8.2)
[2020-03-13] MEDS ORDERED: METOPROLOL SUCC 25MG EXT REL TAB PO SCH (09:00)
[2020-03-13] MEDS ORDERED: POTASSIUM CHLORIDE CRTAB 20 MEQ TABCR PO STA (09:45)
[2020-03-13] MEDS ORDERED: POTASSIUM PHOS 3 MMOL/1 ML INFUSION IV STA (09:46)
[2020-03-13] MEDS: APIXABAN 5 MG TABLET PO SCH (09:57)
[2020-03-13] MEDS: lisinopril 5 MG TAB PO SCH (09:57)
[2020-03-13] MEDS: METOPROLOL SUCC 25MG EXT REL TAB PO SCH (09:57)
[2020-03-13] MEDS: FUROSEMIDE 20 MG TAB PO SCH (09:58)
[2020-03-13] MEDS: MAGNESIUM OXIDE 400 MG TAB PO SCH (09:59)
[2020-03-13] MEDS: LACTOBACILLUS ACIDOPHILUS 1 GM PACK PO SCH ×3 (09:59→17:23)
[2020-03-13] MEDS: PANTOprazole 40 MG TAB PO SCH (09:59)
[2020-03-13] MEDS ORDERED: POTASSIUM PHOSPHATE 21 MMOL in SODIUM CHLORIDE 0.9% 500 ML IV ONE (10:00)
--- NOTE | 2020-03-13 10:15 | Cardiology Consultation ---
Date of Consultation March 13, 2020 Assessment & Plan (1) Atrial fibrillation with rapid ventricular response: (2) LBBB (left bundle branch block): Patient with recurrent atrial fibrillation ventricular spots, status post conversion to sinus rhythm without significant pause or is longstanding history of atrial arrhythmias including paroxysmal atrial fibrillation, and remote postoperative atrial flutter. Had a recent syncopal episode earlier this month for which ongoing work up is in process. Continue prior to hospital treatment with verapamil 240 mg, metoprolol succinate 12.5 mg daily in a.m. Potassium supplementation already ordered by primary team. I see new diagnosis of "diastolic heart failure "listed in her diagnoses. The patient has been receiving IV agents including IV antibiotic therapy, and her intake and outtake summarize, she has been positive every day. Oral furosemide, she may need additional diuretic to keep her intake and output. Cards to transition her off of calcium channel shawn, going to review her history and discuss things with her primary beef farmer, as I anticipate that she is on because other agents have not been effective and she certainly is very symptomatic if she reversed atrial fibrillation. Eliquis for stroke prophylaxis. History of Present Illness Attending Physician: Rere Manuel MD History of Present Illness Geni Payan is a 89 year old female seen in cardiology consultation for the evaluation of paroxysmal atrial fibrillation. The patient follows with Dr Bay of our practice. Patient recently hospitalized earlier this month with a syncopal episode that took place in the setting of a urinary tract infection. She has underlying cardiac conduction system disease with longstanding left bundle branch block, paroxysmal atrial fibrillation, and past history of atrial flutter. She had been seen by Dr. Bay in post hospital follow-up on 03/09/2020, plans included outpatient threat monitoring analyst, and electrophysiology rotation to consider recorder wraps pacemaker for heart rate support. 03/10/the day after her recent outpatient cardiology follow-up visit, she was admitted with abdominal pain. She is being treated with antibiotic Zosyn concerns of pneumonia UTI, possible intra-abdominal infection. Yesterday, it appears her verapamil dose was held or discontinued, for details I need to clarify with the primary team, perhaps due to concerns it was contributing to her symptomatic constipation. Just after 10 PM, she reverted from sinus rhythm with left bundle branch block to atrial fibrillation with rapid ventricular response in the 120s to 130 beat as documented on EKG. The patient described palpitations and severe dyspnea with the onset of the atrial fibrillation last evening. She was given a stat dose oral verapamil 120 mg at 2243 last evening subsequent observed conversion to sinus rhythm this morning at 2:20 AM, without compensatory pauses. No significant bradycardia noted on telemetry thus far this admission. Currently the patient is sitting in a bedside chair, receiving her IV antibiotic, feeling well. Recent inpatient echocardiogram performed 03/01/2020 report describes mild concentric left ventricular hypertrophy with ventricular ejection fraction of 60 to 65% trace mitral regurgitation noted, moderate aortic valve sclerosis without aortic stenosis noted. Past Medical History: 1. Longstanding hypertension 2. Chronic left bundle branch block 3. History of cerebral carotid artery aneurysm clipping 1988 4. Single episode transient atrial flutter post operatively 1988 5. Hyperlipidemia 6. Cardiac catheterization November 2010 without obstructive coronary disease 7. TIA with transient aphasia June of 2017 8. Paroxysmal atrial fibrillation with hospitalization November 07, 2019 with rapid response Allergies Allergy/AdvReac Type Severity Reaction Status Date / Time adhesive Allergy Unknown RASH, Verified 03/10/20 11:13 REDDNESS AT SITE codeine Allergy Unknown RASH, Verified 03/10/20 11:13 SEVERE ITCHING metronidazole Allergy Unknown SEVERE Verified 03/10/20 11:13 YEAST/VAGINAL INFX morphine Allergy Unknown IRREGULAR Verified 03/10/20 11:13 HEART RATE, EXTREME SEDATION propoxyphene AdvReac Unknown A-FIB Verified 03/10/20 11:13 Home Medications Medication Instructions Recorded Confirmed Type atorvastatin [Lipitor] 20 mg PO HS 01/30/18 03/10/20 History lisinopril 5 mg PO QAM 01/30/18 03/10/20 History omeprazole 20 mg PO QAM 01/30/18 03/10/20 History verapamil 240 mg PO QPM 01/30/18 03/10/20 History melatonin 10 mg tablet 10 mg PO HS PRN tab 10/26/18 02/29/20 History Eliquis 5 mg PO BID 12/31/19 03/10/20 History calcium carbonate [Calcium 600] 600 mg PO 3XWK 12/31/19 03/10/20 History diphenhydramine HCl [Sleep Aid 25 mg PO HS PRN 12/31/19 03/10/20 History (diphenhydramine)] magnesium oxide 400 mg PO QAM 12/31/19 03/10/20 History metoprolol succinate 12.5 mg PO QAM 12/31/19 03/10/20 History amoxicillin 500 mg tablet 2,000 mg PO ONCE PRN #4 tab 01/09/20 03/10/20 Rx Glucosamine Plus Vitamin D3 1 tab PO QAM 03/10/20 03/10/20 History docusate sodium [Stool Softener] 100 mg PO HS PRN 03/10/20 03/10/20 History omega 6-fsr-[id number]-fish oil [Fish Oil] 2 cap PO BID 03/10/20 03/10/20 History Patient History Medical History (Updated 03/11/20 @ 19:44 by Rere Manuel MD) 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 Dysarthria Paroxysmal atrial fibrillation Rectal bleeding Status post lung surgery (08/03/12) TIA (transient ischemic attack) Surgical History H/O section H/O hemorrhoidectomy History of lung surgery Hx of cholecystectomy Family History Other Abdominal aortic aneurysm Stroke Social History Smoking Status: Never smoker Second Hand Exposure: No; Hx Alcohol Use: Yes Alcohol type: wine Hx Substance Use: No Preferred Language: Swazi Communication Ability: Effective Executor Of Estate Required: No Beliefs That Will Affect Care: Episcopal marital status: Current Living Situation: Spouse Other Information That Helps Us Care for You: No Feels Safe at Home: Yes Safety Concerns: Feels Safe At This Time Assistive Devices: None Review of Systems Review of Systems: All systems reviewed & are unremarkable except as noted in HPI & below Physical Exam Physical Exam: Temp Pulse Resp BP Pulse Ox 36.8 C 71 16 105/63 95 03/13/20 07:25 03/13/20 07:39 03/13/20 07:25 03/13/20 07:25 03/13/20 10:16 Constitutional: WD/WN, vitals as above Respiratory: normal respiratory effort, lungs clear to auscultation Cardiovascular: Rate/Rhythm: regular rate Heart Sounds: + murmur (1/6 sm) Vessels: no JVD Extremities: no edema Gastrointestinal (Abdomen): normal bowel sounds, soft, nontender, no hepatosplenomegaly Neurologic: PERRL, EOMI, accommodation nl, no face palsy, no dysarthria Results & Data ([facility]) Vital Signs (Past 12 Hours) Vital Signs Temp Pulse Pulse Resp BP BP BP 03/13/20 07:39 71 03/13/20 07:25 36.8 C 76 16 105/63 03/13/20 04:12 36.6 C 71 18 93/61 L 03/13/20 03:57 66 03/12/20 23:10 36.6 C 86 18 101/64 03/12/20 22:20 176 H 148/76 H 03/12/20 22:14 114 H 24 Pulse Ox 03/13/20 07:39 03/13/20 07:25 96 03/13/20 04:12 96 03/13/20 03:57 03/12/20 23:10 95 03/12/20 22:20 03/12/20 22:14 95 Laboratory Results Cardiac Enzymes 03/12/20 03/13/20 Range/Units 22:19 06:30 AST 10 L (15-37) U/L Troponin I < 0.015 (0-0.045) ng/ml CBC 03/12/20 03/13/20 Range/Units 22:19 06:30 WBC 11.18 H 7.57 (4.8-10.8) K/uL RBC 4.50 4.06 L (4.2-5.4) M/uL Hgb 12.6 11.4 L (12.0-16.0) g/dL Hct 36.8 L 33.1 L (37-47) % Plt Count 273 229 (130-400) K/uL Neut # (Auto) 8.28 H 5.35 (1.4-6.5) K/uL Lymph # (Auto) 1.51 1.25 (1.2-3.4) K/uL [place] # (Auto) 0.80 H 0.47 (0.11-0.59) K/uL Eos # (Auto) 0.54 H 0.48 (0-0.5) K/uL Baso # (Auto) 0.02 0.01 (0-0.2) K/uL Comprehensive Metabolic Panel 01/25/21 01/26/21 Range/Units 22:19 06:30 Sodium 137 140 (136-145) mmol/L Potassium 3.6 3.2 L (3.5-5.1) mmol/L Chloride 104 107 (98-107) mmol/L Carbon Dioxide 27 27 (21-32) mmol/L BUN 14 12 (7-18) mg/dl Creatinine 0.73 0.61 (0.6-1.2) mg/dl Glucose 106 H 90 (70-99) mg/dl Calcium 8.8 8.0 L (8.5-10.1) mg/dl Direct Bilirubin 0.3 H (0-0.2) mg/dl AST 10 L (15-37) U/L ALT 21 (12-78) U/L Alkaline Phosphatase 76 (45-117) U/L Total Protein 5.7 L (6.4-8.2) gm/dl Albumin 2.1 L (3.4-5.0) gm/dl Intake and Output 03/12/20 03/13/20 03/13/20 22:59 06:59 14:59 Intake Total 115 / 1455 725 / 1455 Output Total 2 / 252 Balance 113 / 1203 725 / 1203 Intake: IV 115 / 855 625 / 855 Zosyn 3.375 gm In D5 100 ml @ 115 / 345 115 / 345 28.75 mls/hr IV Q8H [facility] Rx#: [id number] Nss 1000ML 1,000 ml @ 125 mls/ 0 / 0 hr IV .Q8H [facility] Rx#:[id number] Sodium Phosphate 30 Mmol In Nss 510 / 510 500 ml @ 100 mls/hr IV ONE ONE Rx#:[id number] Oral 100 / 600 Output: # Bowel Movements 2 / 2 Other: Other Intake Source Sips # Unmeasured Voids 2 1 Weight 61.2 kg Weight Measurement Method Standing Scale Diagnostic Findings EKG tracings last evening atrial fibrillation the range of 124 to 130 bpm. Repeat tracing performed this morning 03/13/2020 at 10:23 AM reviewed revealed normal sinus rhythm at 70 bpm. To last evening, sinus rhythm has placed atrial fibrillation, ventricular rate has decreased by 46 bpm.
--- NOTE | 2020-03-13 11:21 | Electrocardiogram Report ---
Test Reason : Blood Pressure : / mmHG Vent. Rate : 131 BPM Atrial Rate : 133 BPM P-R Int : 000 ms QRS Dur : 126 ms QT Int : 352 ms P-R-T Axes : 000 034 140 degrees QTc Int : 519 ms Atrial fibrillation with rapid ventricular response Non-specific intra-ventricular conduction block Abnormal ECG When compared with ECG of 11-MAR-2020 08:42, Atrial fibrillation has replaced Sinus rhythm Vent. rate has increased BY 62 BPM QRS axis Shifted right Confirmed by Chalo Bernal ([id number]) on 03/13/2020 11:21:35 AM Referred By: REFERRED SELF Confirmed By:Alonso Bernal
--- NOTE | 2020-03-13 11:22 | Electrocardiogram Report ---
Test Reason : Blood Pressure : / mmHG Vent. Rate : 124 BPM Atrial Rate : 096 BPM P-R Int : 000 ms QRS Dur : 134 ms QT Int : 310 ms P-R-T Axes : 000 026 249 degrees QTc Int : 445 ms Atrial fibrillation with rapid ventricular response Non-specific intra-ventricular conduction delay Abnormal ECG When compared with ECG of 12-MAR-2020 22:10, (unconfirmed) minimal change Confirmed by Chalo Bernal ([id number]) on 03/13/2020 11:22:05 AM Referred By: REFERRED SELF Confirmed By:Alonso Bernal
--- NOTE | 2020-03-13 11:32 | Electrocardiogram Report ---
Test Reason : Blood Pressure : / mmHG Vent. Rate : 078 BPM Atrial Rate : 078 BPM P-R Int : 146 ms QRS Dur : 144 ms QT Int : 432 ms P-R-T Axes : 072 -39 087 degrees QTc Int : 492 ms Normal sinus rhythm Left axis deviation Left bundle branch block Abnormal ECG When compared with ECG of 12-MAR-2020 22:11, (unconfirmed) Sinus rhythm has replaced Atrial fibrillation Vent. rate has decreased BY 46 BPM QRS axis Shifted left Nonspecific T wave abnormality no longer evident in Inferior leads Confirmed by Chalo Bernal ([id number]) on 03/13/2020 11:31:43 AM Referred By: REFERRED SELF Confirmed By:Alonso Bernal
--- NOTE | 2020-03-13 11:39 | Communication Note ---
Date of Service: March 13, 2020 hx of paroxsysmal Afib , currently in sinus rhythm now burst of episodes of Afib RVR noted on monitor yesterday evening , on low dose Lopressor 12.5 mg daily and Verapamil 240 mg daily ( need to d/w Cardiology for alternative of CCB , as pt has been experiencing long standing severe constipation ( possible side effect of diltiazem ?) on Eliquis for stroke prophylaxis [facility] cardiology consult requested for recommendation /adjustment of antiarrhythmic drugs Rere Manuel MD
[2020-03-13 15:02] LABS: BUN Creatinine Ratio 14.6 (10-20); Calcium 8.1 mg/dl (8.5-10.1); Creatinine Clr Calc Pharmacy 48.2 ml/min; Est GFR (African American) 88.8; Est GFR (Non-African American) 76.6; Phosphorus 3.1 mg/dl (2.5-4.9); Potassium 3.7 mmol/L (3.5-5.1)
[2020-03-13] MEDS ORDERED: METOPROLOL TARTRATE 1 MG/ML VIAL IV PRN (15:08)
--- NOTE | 2020-03-13 17:14 | Hospitalist Progress Note ---
Date of Service March 13, 2020 Assessment & Plan Admission and Anticipated Discharge Date Admission Date: March 11, 2020 Subjective episodes of rapid afib rvr with symptoms of feeling diaphoretic , feels Results & Data Results & Data ([facility]) Vital Signs (Past 12 Hours) Vital Signs Temp Pulse Pulse Resp BP BP Pulse Ox 03/13/20 16:00 85 03/13/20 15:11 36.9 C 86 18 110/58 L 92 03/13/20 10:16 03/13/20 07:39 71 03/13/20 07:25 36.8 C 76 16 105/63 96 Pulse Ox 03/13/20 16:00 03/13/20 15:11 03/13/20 10:16 95 03/13/20 07:39 03/13/20 07:25
[2020-03-13] MEDS: AMOXICILLIN/CLAVULANATE 875 MG TAB PO SCH (17:28)
--- NOTE | 2020-03-13 18:44 | Communication Note ---
Date of Service: March 13, 2020 Rapid afib RVR HR @ 120's, pt becomes very symptomatic -with chest heaviness, SOB , palpitation , dizzy spell IV Lopressor given may require cont drip if HR does not improve with intermittent Iv Lopressor and oral med ( Diltiazem 240 mg po scheduled for 2099 ) transfer pt to PCU cardiology updated cont Eliquis for stroke prophylaxis 2 Pm labs reviewed : K , Phos , mg -level corrected repeat BMP in am , goal keep K > 4 , Mg > 2 to prevent arrhythmia pt's Jose Payan and Daughter Marianela update over phone /all questions answered pt will need continued hospital stay for symptomatic cardiac arrhythmia Rere Manuel MD
--- NOTE | 2020-03-13 19:08 | Communication Note ---
Date of Service: March 13, 2020 pt has been in and out of rapid afib followed by lower HR in sinus tachybrady syndrome on Lopressor 12.5 mg in AM /Diltiazem 240 mg HS develops marked bradycardia with hypotension -in prior attempt to increase beta shawn dose for better heart rate control . pt been followed with Dr Bay , tentative plan was to have Zio patch for 2 weeks -to confirm the arrhythmia pattern , followed by consideration for pace maker placement . during this hospital stay , pt had multiple episodes of feeling dizzy /lightheaded, very nauseous /chest heaviness with arrythmia very worried /anxious about going home and having to come back to ER for the symptom . cardiology updated pt may benefit evaluation for pacemaker this admission , regarding -concern for infection : at present does not have any fever /normal white count ,no cough urine culture : corynebacterium , skin allie , contaminated specimen -no treatment required had GI symptoms possible due to severe constipation no evidence of cholangitis . with minimum elevated pro rubi /chance of infection is highly unlikely pt also received broad spectrum ABx Discussed with cardiology : pt will be started on IV amiodarone gtt , Varapamil 120 mg X1dose now , D/c Eliquis , start on IV heparin wt based protocol NPO past midnight for possible cardiac pacemaker placement in am Rere Manuel MD
[2020-03-13] MEDS ORDERED: 0.2 MICRON FILTER SET 1 EA IV ONE (19:15)
[2020-03-13] MEDS ORDERED: STAT IV Infusion **Titration per Protocol STA (19:15)
[2020-03-13] MEDS ORDERED: AMIODARONE / D5W 150 MG/100 ML BAG IV STA (19:15)
[2020-03-13] MEDS ORDERED: AMIODARONE IV BOLUS & DRIP IV STA (19:15)
[2020-03-13] MEDS ORDERED: AMIODARONE / D5W 360 MG/200 ML BAG IV ONE (19:15)
[2020-03-13] MEDS ORDERED: dilTIAZem HCL 120 MG CAPCR PO ONE (20:00)
[2020-03-13] MEDS ORDERED: Heparin IV Low Dose *NO* Bolus IV SCH (20:30)
[2020-03-13] MEDS ORDERED: VERAPAMIL HCL 240 MG TABCR PO SCH (21:00)
[2020-03-13] MEDS: DOCUSATE SODIUM 100 MG CAP PO SCH (21:46)
[2020-03-13] MEDS: ATORVASTATIN 20 MG TAB PO SCH (21:46)
[2020-03-13 22:09] LABS: Partial Thromboplastin Ratio 1.3
[2020-03-13] MEDS: HEPARIN SODIUM/DEXTROSE 25,000 UNITS/500 ML BAG IV SCH (23:00)
[2020-03-14] MEDS: AMIODARONE / D5W 360 MG/200 ML BAG IV SCH ×2 (02:52→15:44)
[2020-03-14 05:18] LABS: Basophils # (auto) 0.02 K/uL (0-0.2); Basophils % (auto) 0.2 %; Eosinophils # (auto) 0.52 K/uL (0-0.5); Eosinophils % (auto) 6.5 %; Hematocrit (blood only) 35.4 % (37-47); Immature Granulocytes # (auto) 0.02 K/uL (0.00-0.02); Immature Granulocytes % (auto) 0.2 %; Lymphocytes # (auto) 1.75 K/uL (1.2-3.4); Lymphocytes % (auto) 21.7 %; Mean Corpuscular Hemoglobin 27.6 pg (25-34); Mean Corpuscular Hgb Conc 33.9 g/dL (32-36); Mean Corpuscular Volume 81.6 fL (80-100); Mean Platelet Volume 9.3 fL (7.4-10.4); Monocytes # (auto) 0.48 K/uL (0.11-0.59); Neutrophils # (auto) 5.27 K/uL (1.4-6.5); Neutrophils % (auto) 65.4 %; Platelet Count 266 K/uL (130-400); RDW Coefficient of Variation 13.3 % (11.5-14.5); RDW Standard Deviation 40.3 fL (36.4-46.3); Red Blood Count 4.34 M/uL (4.2-5.4); White Blood Count 8.06 K/uL (4.8-10.8)
[2020-03-14 05:51] LABS: BUN Creatinine Ratio 12.5 (10-20); Calcium 8.3 mg/dl (8.5-10.1); Creatinine Clr Calc Pharmacy 64.6 ml/min; Est GFR (African American) 98.9; Est GFR (Non-African American) 85.4; Magnesium 2.2 mg/dl (1.8-2.4); Potassium 3.5 mmol/L (3.5-5.1)
[2020-03-14 05:57] LABS: Phosphorus 2.3 mg/dl (2.5-4.9)
[2020-03-14 06:16] LABS: Partial Thromboplastin Ratio 1.6; Partial Thromboplastin Time 44.1 Seconds (21.0-31.0)
[2020-03-14] MEDS: MAGNESIUM OXIDE 400 MG TAB PO SCH (07:38)
[2020-03-14] MEDS: AMOXICILLIN/CLAVULANATE 875 MG TAB PO SCH ×2 (07:38→17:30)
[2020-03-14] MEDS: PANTOprazole 40 MG TAB PO SCH (07:39)
[2020-03-14] MEDS: LACTOBACILLUS ACIDOPHILUS 1 GM PACK PO SCH ×3 (07:39→17:15)
[2020-03-14] MEDS: METOPROLOL SUCC 25MG EXT REL TAB PO SCH (07:49)
--- NOTE | 2020-03-14 09:54 | Electrocardiogram Report ---
Test Reason : Blood Pressure : / mmHG Vent. Rate : 101 BPM Atrial Rate : 070 BPM P-R Int : 000 ms QRS Dur : 136 ms QT Int : 378 ms P-R-T Axes : 000 -42 095 degrees QTc Int : 490 ms Atrial fibrillation with rapid ventricular response Left axis deviation Left bundle branch block Abnormal ECG When compared with ECG of 13-MAR-2020 10:23, Atrial fibrillation has replaced Sinus rhythm Confirmed by Chalo Bernal ([id number]) on 03/14/2020 9:54:04 AM Referred By: REFERRED SELF Confirmed By:Alonso Bernal
--- NOTE | 2020-03-14 09:58 | Electrocardiogram Report ---
Test Reason : Blood Pressure : / mmHG Vent. Rate : 084 BPM Atrial Rate : 084 BPM P-R Int : 146 ms QRS Dur : 140 ms QT Int : 424 ms P-R-T Axes : 065 -53 093 degrees QTc Int : 501 ms Sinus rhythm with Premature atrial complexes Left axis deviation Left bundle branch block Abnormal ECG When compared with ECG of 13-MAR-2020 18:05, (unconfirmed) Sinus rhythm has replaced Atrial fibrillation Confirmed by Chalo Bernal ([id number]) on 03/14/2020 9:58:21 AM Referred By: REFERRED SELF Confirmed By:Alonso Bernal
--- NOTE | 2020-03-14 10:14 | Cardiology Progress Note ---
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 She describes 2 recent syncopal episodes. The first episode took place in December, around Thanksgiving, she describes getting up out of bed, and having a cb syncopal episode shortly thereafter. Earlier this month she presented with a second recent syncopal event. She describes that she was feeling fine that day, she was sitting in her dining room working on a puzzle. She got up to take a break from working on the puzzle, and had sudden onset of loss of postural tone, she describes completely "blacking out ". Inpatient work-up shortly thereafter was notable for head injury, without findings of significant tachycardia or bradycardia. She was found to have E. coli on urine culture on 02/29/2020 which has been appropriately treated. Ongoing cardiac work-up was in progress when she was readmitted for generalized abdominal pain. A Zio patch had been in place, but was removed to allow MRI imaging of her abdomen this admission. No definite GI cause of her symptoms has been found, EGD and EUS tentatively planned as an outpatient. And a question has been raised with regards to whether or not her symptoms are due to constipation as a side effect of her chronic treatment with a calcium channel shawn verapamil. There has been a question raised with regards to pneumonia. This is obviously a very complex case. Per my personal review of the chest x-ray and CT reports, I question if perhaps patient's cough and transient respiratory symptoms are more associated with diastolic heart failure decompensation in the setting of known concentric left ventricular hypertrophy on recent echocardiogram earlier this month, preserved LVEF, IV fluid administration for treatment of recent infectious concerns. IV Zosyn has been transitioned to Augmentin. We will proceed with a cautious dose of furosemide 20 mg, although her most recent recorded blood pressure in her vital signs was 92/69, her blood pressure is improved when I was at the bedside recently in the ICU 9:30 a.m. Potassium has already been replaced by the primary team. We will advance diet, continue heparin bridge, possible pacemaker this week, but not today, pending improvement in volume status, and further observation with regards to infectious status. If possible, GI work-up such as EGD, EUS, would need to be delayed, perhaps for 8 weeks post pacemaker to minimize risk of causing infection to new pacemaker. With regards to rhythm control, while patient is hospitalized and on telemetry, will cautiously transition her from verapamil to amiodarone and metoprolol tartrate. As noted, Eliquis on hold, heparin bridge started for stroke prophylaxis can be discontinued as needed for tentative procedure. Case discuss with patient's nurse, Adolfo, and Dr Carranza of EP. Admission and Anticipated Discharge Date Admission Date: March 11, 2020 Subjective Chief complaint: Follow-up severe shortness of breath associated with episodes of atrial fibrillation, rapid ventricular response, mild generalized abdominal discomfort Subjective: Last evening at approximately 6 PM, patient reverted to atrial fibrillation with rapid ventricular spots, with severe symptoms of associated shortness of breath. She received a dose of oral diltiazem, amiodarone infusion was initiated, and she was transitioned from Eliquis to a heparin IV infusion for bridge therapy. She was transferred to the first floor ICU given use of amiodarone infusion as she had been on 2 N as a telemetry overflow patient. She spontaneously converted to sinus rhythm overnight, and EKG this morning revealed sinus rhythm 84 bpm, with left bundle branch block, QRS duration 140 ms, compared to the previous tracing from last evening at 1805, sinus rhythm replaced atrial fibrillation. At 7:59 AM this morning, the patient reverted back to atrial fibrillation, ventricular rates currently in the 120s, she is sitting in the bedside chair, and asymptomatic from an atrial fibrillation standpoint. Physical Exam Physical Exam: Temp Pulse Resp BP Pulse Ox 36.6 C 92 H 24 92/69 L 90 03/14/20 06:03 03/14/20 06:03 03/14/20 06:03 03/14/20 06:03 03/14/20 06:03 Constitutional: WD/WN, vitals as above Respiratory: Auscultation: + crackles (Bilateral crackles at the bases) Cardiovascular: Rate/Rhythm: + tachycardic and + irregularly irregular Heart Sounds: no murmur Vessels: no JVD Extremities: no edema Gastrointestinal (Abdomen): Mild vague generalized abdominal discomfort to palpation Neurologic: PERRL, EOMI, accommodation nl, no face palsy, no dysarthria Results & Data ([facility]) Vital Signs (Past 12 Hours) Vital Signs Temp Pulse Resp BP Pulse Ox 03/14/20 06:03 36.6 C 92 H 24 92/69 L 90 03/14/20 01:02 36.4 C L 93 H 26 H 127/61 90 03/14/20 00:00 83 Laboratory Results Coagulation 03/13/20 03/14/20 Range/Units 21:51 05:49 APTT 37.0 H 44.1 H (21.0-31.0) Seconds CBC 03/14/20 Range/Units 05:07 WBC 8.06 (4.8-10.8) K/uL RBC 4.34 (4.2-5.4) M/uL Hgb 12.0 (12.0-16.0) g/dL Hct 35.4 L (37-47) % Plt Count 266 (130-400) K/uL Neut # (Auto) 5.27 (1.4-6.5) K/uL Lymph # (Auto) 1.75 (1.2-3.4) K/uL [place] # (Auto) 0.48 (0.11-0.59) K/uL Eos # (Auto) 0.52 H (0-0.5) K/uL Baso # (Auto) 0.02 (0-0.2) K/uL Comprehensive Metabolic Panel 03/13/20 03/14/20 Range/Units 14:03 05:07 Sodium 140 140 (136-145) mmol/L Potassium 3.7 D 3.5 (3.5-5.1) mmol/L Chloride 108 H 108 H (98-107) mmol/L Carbon Dioxide 28 31 (21-32) mmol/L BUN 10 7 (7-18) mg/dl Creatinine 0.71 0.53 L (0.6-1.2) mg/dl Glucose 87 95 (70-99) mg/dl Calcium 8.1 L 8.3 L (8.5-10.1) mg/dl Intake and Output 03/13/20 03/14/20 03/14/20 22:59 06:59 14:59 Intake Total 516.067 / 1602.000 200 / 1602.000 Balance 516.067 / 1349.000 200 / 1349.000 Intake: IV 516.067 / 922.000 200 / 922.000 NEXTERONE / D5W 150 mg In 100 100 / 100 ml @ 600 mls/hr IV NOW STA Rx#: [id number] NEXTERONE / D5W 360 mg In 200 200 / 200 ml @ 33.333 mls/hr IV ONE ONE Rx#:[id number] Potassium Phosphate 21 Mmol In 416.067 / 507.000 Nss 500 ml @ 88 mls/hr IV ONE ONE Rx#:[id number] Other: # Unmeasured Voids 1 2 Diagnostic Findings EKG tracings from last evening and again this morning, personally reviewed, as noted above. (1) Syncope Syncope type: unspecified Qualified Code(s): R55 - Syncope and collapse
[2020-03-14] MEDS ORDERED: FUROSEMIDE 20 MG in SYRINGE 0 ML IV ONE (10:15)
[2020-03-14] MEDS: POT PHOSPHATE MONOBASIC W/ SOD TAB PO SCH ×4 (10:37→20:54)
[2020-03-14] MEDS: POTASSIUM CHLORIDE CRTAB 20 MEQ TABCR PO SCH (11:36)
[2020-03-14] MEDS: METOPROLOL TARTRATE 25 MG TAB PO SCH ×3 (11:37→20:53)
[2020-03-14] MEDS: DOCUSATE SODIUM 100 MG CAP PO SCH ×2 (11:37→20:57)
[2020-03-14] MEDS ORDERED: dilTIAZem HCl 5 MG/ML 5 ML VIAL IV STA (12:41)
[2020-03-14] MEDS ORDERED: dilTIAZem HCl 5 MG/ML 5 ML VIAL IV ONE (12:43)
[2020-03-14] MEDS ORDERED: METOPROLOL TARTRATE 1 MG/ML VIAL IV STA (13:09)
[2020-03-14] MEDS ORDERED: METOPROLOL TARTRATE 1 MG/ML VIAL IV ONE (13:10)
--- NOTE | 2020-03-14 13:11 | Communication Note ---
Date of Service: March 14, 2020 Spoke to nursing twice in the last half hour. AF RVR in 150s noted. Amiodarone infusion ongoing. Administered oral metoprolol at 11:37 am. Diltiazem 10 mg IV x 1. Still tachycardic in bed. No acute symptoms. Will proceed with metoprolol 5 mg IV x 1.
--- NOTE | 2020-03-14 15:40 | Hospitalist Progress Note ---
Date of Service March 14, 2020 Assessment & Plan (1) Abdominal pain: (1) Abdominal pain: Pt is 89 y/o F with PMH HTN, HLD, paroxysmal atrial fibrillation on Eliquis, LBBB, cerebral carotid artery aneurysm clipped in 1988, right lung CA s/p surgery presented to ER with c/o mid and lower abdominal pain x 1 day with nausea. ABDOMINAL PAIN SEVERE CONSTIPATION - total bili improved from 1.3 to 0.9 - CT abdomen: 1. There is mild to moderate intrahepatic biliary ductal dilatation, which has increased from yesterday. This is of indeterminant etiology and significance, and may be related to fasting state status post cholecystectomy. Correlate with clinical findings and serum bilirubin levels. 2. There is increasing bibasilar airspace consolidation as compared to yesterday. Correlate clinically for evidence of pneumonia/aspiration pneumonitis. 3. Small pleural effusions are new from yesterday. 4. Intralobular septal thickening is noted at the lung bases. Correlate clinically for evidence of congestive change/fluid overload. 5. Moderate to advanced colonic diverticulosis without CT evidence of acute diverticulitis. 6. There is postoperative change from previous sigmoid colon resection with colocolonic anastomosis. No bowel obstruction is seen. - MRCP was not done due to presence of intracranial/brain aneurysm clips Mesenteric and portal vein ultrasound demonstrated patent vessels - resolved with BMs GI consulted, recommend outpatient EGD and EUS ASPIRATION PNEUMONIA - afebrile, not septic - continue Augmentin PO day 2/5 RECENT UTI, E COLI - resolved - Urine culture: Corynebacterium A FIB IN RVR POSSIBLE TACHYBRADY SYNDROME - continue Amiodarone drip continue Heparin drip - Metoprolol increased to 12.5mg QID - plan for pacemaker placement, possibly on Thursday ACUTE ON CHRONIC DIASTOLIC CHF - resolved with IV Lasix HISTORY OF TIA - usual Eliquis on hold - continue Heparin drip HTN - monitor closesly CODE STATUS: Full code DVT prophylaxis: on Heparin Disposition pending will need PT/OT evaluation lives with at home Admission and Anticipated Discharge Date Admission Date: March 11, 2020 Subjective ff up for abdominal pain, A fib in RVR etc seen resting in bed, comfortable noted to have HR 140s earlier, a fib vs SVT given IV Cardizem, Saeed Cath placed- HR improved to low 100s not in distress states she had palpitations earlier but no chest pain, dyspnea, dizziness, presyncope denies abdominal pain ,nausea has mild intermittent dry cough, no fever/chills no other symptoms Review of Systems Review of Systems: All systems reviewed & are unremarkable except as noted in Subjective Physical Exam Physical Exam: General- oriented x 3, not in distress, speaks in sentences with no effort or accessory muscle use Eyes- anicteric Neck- no JVD Lungs- clear breath sounds bilaterally, no rales/wheezes Heart- normal rate, irregularly irregular rhythm; no murmurs Abdomen- normal bowel sounds, nondistended, soft, nontender Extremities- no pretibial edema, no calf tenderness Neuro- alert, oriented x 3; no gross focal neurologic deficits Skin- warm & dry Results & Data Results & Data ([facility]) Vital Signs (Past 12 Hours) Vital Signs Temp Pulse Resp BP Pulse Ox 03/14/20 14:00 119 H 26 H 93 03/14/20 13:45 101 H 22 92 03/14/20 13:30 123 H 18 92 03/14/20 13:15 104 H 27 H 91 03/14/20 13:00 155 H 23 92 03/14/20 12:45 157 H 23 03/14/20 12:39 129 H 21 119/66 03/14/20 12:30 133 H 19 03/14/20 12:15 140 H 24 03/14/20 12:12 136 H 26 H 153/105 H 03/14/20 12:00 130 H 23 90 03/14/20 11:26 94 03/14/20 11:00 128 H 14 93 03/14/20 10:00 126 H 19 94 03/14/20 09:00 117 H 19 93 03/14/20 08:00 36.7 C 92 H 16 92 03/14/20 07:42 88 18 142/76 H 93 03/14/20 07:00 83 20 92 03/14/20 06:03 36.6 C 92 H 24 92/69 L 90 Laboratory Results Laboratory Results - last 24 hr 03/13/20 03/13/20 03/14/20 19:55 21:51 05:07 WBC 8.06 RBC 4.34 Hgb 12.0 Hct 35.4 L MCV 81.6 MCH 27.6 MCHC 33.9 RDW Std Deviation 40.3 RDW Coeff of Coleman 13.3 Plt Count 266 MPV 9.3 Immature Gran % (Auto) 0.2 Neut % (Auto) 65.4 Lymph % (Auto) 21.7 [place] % (Auto) 6.0 Eos % (Auto) 6.5 Baso % (Auto) 0.2 Neut # (Auto) 5.27 Lymph # (Auto) 1.75 [place] # (Auto) 0.48 Eos # (Auto) 0.52 H Baso # (Auto) 0.02 Immature Gran # (Auto) 0.02 APTT 37.0 H PTT Ratio 1.3 Sodium Potassium Chloride Carbon Dioxide Anion Gap BUN Creatinine Est Cr Clr Drug Dosing Est GFR ( Amer) Est GFR (Non-Af Amer) BUN/Creatinine Ratio Glucose Calcium Phosphorus Magnesium Procalcitonin Nasal Screen MRSA (PCR) Negative 03/14/20 03/14/20 03/14/20 05:07 05:07 05:49 WBC RBC Hgb Hct MCV MCH MCHC RDW Std Deviation RDW Coeff of Coleman Plt Count MPV Immature Gran % (Auto) Neut % (Auto) Lymph % (Auto) [place] % (Auto) Eos % (Auto) Baso % (Auto) Neut # (Auto) Lymph # (Auto) [place] # (Auto) Eos # (Auto) Baso # (Auto) Immature Gran # (Auto) APTT 44.1 H PTT Ratio 1.6 Sodium 140 Potassium 3.5 Chloride 108 H Carbon Dioxide 31 Anion Gap 1.0 L BUN 7 Creatinine 0.53 L Est Cr Clr Drug Dosing 64.6 Est GFR ( Amer) 98.9 Est GFR (Non-Af Amer) 85.4 BUN/Creatinine Ratio 12.5 Glucose 95 Calcium 8.3 L Phosphorus 2.3 L Magnesium 2.2 Procalcitonin 0.22 Nasal Screen MRSA (PCR)
--- NOTE | 2020-03-14 16:14 | Critical Care Consultation ---
Date of Consultation March 14, 2020 Assessment & Plan (1) Hypotension: Patient's intermittent hypotension is likely due to related loss of atrial kick given her atrial fibrillation with rapid ventricular response. Cardiology is on board and she is currently on amiodarone drip with improved heart rates. I am going to check a lactate to make sure there is no ongoing ischemia. Creatinine is 0.53 and there is no evidence of endorgan damage at this time. Procalcitonin is negative. She has been on broad-spectrum antibiotics and is currently on Augmentin for the possibility of aspiration pneumonia. Her procalcitonin was mildly elevated on 03/11 and is currently 0.22. I do not think that she has aspiration pneumonia at this time. I think she has bibasilar atelectasis with small pleural effusions likely related to decompensated diastolic heart failure. She is +4.67 L since admission. Will defer to cardiology regarding further diuresis. As noted above, continue low-dose metoprolol and amiodarone for rate control for atrial fibrillation. She was treated earlier in the month for urinary tract infection. Appears asymptomatic at this time. Should she have further episodes of hypotension, would start low-dose phenylephrine. Would also consider placement of an arterial line for more accurate blood pressure readings. CRITICAL CARE TIME - I have personally spent 30 minutes of critical care time in the direct management of this patient. This is a life/limb threatening event. This includes time spent evaluating patient, direct bedside care, chart review, placing orders, interpretation of diagnostic studies, discussion with consultants, patient, and family members, as well as other required patient management activities. This time is exclusive of all separately billable procedures, and teaching time and separate from and in addition to any other critical care service time. (2) Heart failure, diastolic, with acute decompensation: (3) Paroxysmal atrial fibrillation: (4) Atelectasis: History of Present Illness Reason for Consultation: Tachybradycardia syndrome with hypotension Requesting Physician: Hospitalist Attending Physician: Mirza Guevara MD History of Present Illness 89-year-old female admitted to the hospital on 03/10/2020 for possible urinary tract infection and was started on broad-spectrum antibiotics. She has a history of atrial fibrillation and is being followed by cardiology. Cardiology note reviewed today which demonstrates 2 recent syncopal episodes thought to be related to possible tachybradycardia syndrome. There is concern of possible underlying decompensated diastolic heart failure and also aspiration pneumonia. She is on Augmentin currently. She was on IV Zosyn earlier in the hospital course. Yesterday evening she was started on an amiodarone drip, heparin drip and upgraded to PCU status. Today ICU was consulted due to ongoing hypotension and tachybradycardia syndrome. Chest x-ray from 03/12/2020 reviewed which demonstrates mildly increased interstitial markings in bilateral lower lobe atelectasis with small effusions. Portal vein ultrasound completed on the was unremarkable. Mesenteric ultrasound was generally unremarkable as well. CT abdomen pelvis performed on the demonstrated increased intrahepatic biliary ductal dilation. Indeterminate significance. Small new pleural effusions were seen. Moderate diverticulosis noted as well. White count and hemoglobin are normal. Creatinine 0.53. Procalcitonin 0.22. Patient notes that this morning when she was sitting up in a chair, she felt dizzy and it was noted that her blood pressure had dropped. She has been having abdominal pain during this hospitalization. She had trouble with urination and was found to have urinary retention. Her bladder pain improved after Saeed catheter placement. She does describe a history of palpitations in her chest, but she denies any specific chest pain currently. She was tearful at one point and noted that she was sad that her was worried about her. She is normally under the care of Dr. Sj Bay as an outpatient. She notes that he was working her up for evaluation of a pacemaker, but there have been numerous issues such as recent urinary tract infection and concern for pneumonia. Allergies Allergy/AdvReac Type Severity Reaction Status Date / Time adhesive Allergy Unknown RASH, Verified 03/10/20 11:13 REDDNESS AT SITE codeine Allergy Unknown RASH, Verified 03/10/20 11:13 SEVERE ITCHING metronidazole Allergy Unknown SEVERE Verified 03/10/20 11:13 YEAST/VAGINAL INFX morphine Allergy Unknown IRREGULAR Verified 03/10/20 11:13 HEART RATE, EXTREME SEDATION propoxyphene AdvReac Unknown A-FIB Verified 03/10/20 11:13 Home Medications Medication Instructions Recorded Confirmed Type atorvastatin [Lipitor] 20 mg PO HS 01/30/18 03/10/20 History lisinopril 5 mg PO QAM 01/30/18 03/10/20 History omeprazole 20 mg PO QAM 01/30/18 03/10/20 History verapamil 240 mg PO QPM 01/30/18 03/10/20 History melatonin 10 mg tablet 10 mg PO HS PRN tab 10/26/18 02/29/20 History Eliquis 5 mg PO BID 12/31/19 03/10/20 History calcium carbonate [Calcium 600] 600 mg PO 3XWK 12/31/19 03/10/20 History diphenhydramine HCl [Sleep Aid 25 mg PO HS PRN 12/31/19 03/10/20 History (diphenhydramine)] magnesium oxide 400 mg PO QAM 12/31/19 03/10/20 History metoprolol succinate 12.5 mg PO QAM 12/31/19 03/10/20 History amoxicillin 500 mg tablet 2,000 mg PO ONCE PRN #4 tab 01/09/20 03/10/20 Rx Glucosamine Plus Vitamin D3 1 tab PO QAM 03/10/20 03/10/20 History docusate sodium [Stool Softener] 100 mg PO HS PRN 03/10/20 03/10/20 History omega 4-axx-cux-fish oil [Fish Oil] 2 cap PO BID 03/10/20 03/10/20 History Patient History Medical History (Updated 03/14/20 @ 16:15 by Patrice Saenz MD) 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 Dysarthria Hypotension Paroxysmal atrial fibrillation Rectal bleeding Status post lung surgery (08/03/12) TIA (transient ischemic attack) Surgical History H/O section H/O hemorrhoidectomy History of lung surgery Hx of cholecystectomy Family History Other Abdominal aortic aneurysm Stroke Social History Smoking Status: Never smoker Second Hand Exposure: No; Hx Alcohol Use: Yes Alcohol type: wine Hx Substance Use: No Preferred Language: Italian Communication Ability: Effective Oil Well Directional Surveyor Required: No Beliefs That Will Affect Care: Mandaeism marital status: Current Living Situation: Spouse Other Information That Helps Us Care for You: No Feels Safe at Home: Yes Safety Concerns: Feels Safe At This Time Assistive Devices: None Review of Systems Review of Systems: All systems reviewed & are unremarkable except as noted in HPI & below Physical Exam Constitutional: WD/WN, vitals as above Eyes: PERRL, conjunctivae normal, anicteric sclerae ENMT: external ear and nose normal, oropharynx normal Neck: normal visual inspection Respiratory: Diminished bilaterally in the lower lobes no significant tachypnea. Saturating 93% on room air. Cardiovascular: Rate/Rhythm: + tachycardic and + irregularly irregular Gastrointestinal (Abdomen): normal bowel sounds, soft, nontender, no hepatosplenomegaly Musculoskeletal: no cyanosis or clubbing, extremities motor strength 5/5 Skin: no rashes, warm and dry Neurologic: PERRL, EOMI, accommodation nl, no face palsy, no dysarthria Psychiatric: A+Ox3, euthymic affect Results & Data Results & Data ([facility]) Vital Signs (Past 12 Hours) Vital Signs Temp Pulse Pulse Resp BP BP Pulse Ox 03/14/20 15:53 98.1 F 112 H 20 116/57 L 92 03/14/20 14:00 119 H 26 H 93 03/14/20 13:45 101 H 22 92 03/14/20 13:30 123 H 18 92 03/14/20 13:15 104 H 27 H 91 03/14/20 13:00 155 H 23 92 03/14/20 12:45 157 H 23 03/14/20 12:39 129 H 21 119/66 03/14/20 12:30 133 H 19 03/14/20 12:15 140 H 24 03/14/20 12:12 136 H 26 H 153/105 H 03/14/20 12:00 130 H 23 90 03/14/20 11:26 94 03/14/20 11:00 128 H 14 93 03/14/20 10:00 126 H 19 94 03/14/20 09:00 117 H 19 93 03/14/20 08:00 98.1 F 92 H 16 92 03/14/20 07:42 88 18 142/76 H 93 03/14/20 07:00 83 20 92 03/14/20 06:03 97.9 F 92 H 24 92/69 L 90 I reviewed the vital signs, labs and imaging Coding Level of Care Code Critical Care 1st 30-74 mins Diagnoses Hypotension I95.9 Heart failure, diastolic, with acute decompensation I50.33 Paroxysmal atrial fibrillation I48.0 Atelectasis J98.11 Time Spent (min) 30
[2020-03-14] MEDS: POLYETHYLENE (MIRALAX) 17 GM PACK PO SCH (17:21)
[2020-03-14] MEDS: ATORVASTATIN 20 MG TAB PO SCH (20:53)
[2020-03-15] MEDS: AMIODARONE / D5W 360 MG/200 ML BAG IV SCH ×2 (01:18→15:10)
[2020-03-15 05:16] LABS: Basophils # (auto) 0.02 K/uL (0-0.2); Basophils % (auto) 0.2 %; Eosinophils # (auto) 0.52 K/uL (0-0.5); Eosinophils % (auto) 6.3 %; Hematocrit (blood only) 35.8 % (37-47); Immature Granulocytes # (auto) 0.02 K/uL (0.00-0.02); Immature Granulocytes % (auto) 0.2 %; Lymphocytes # (auto) 2.01 K/uL (1.2-3.4); Lymphocytes % (auto) 24.5 %; Mean Corpuscular Hemoglobin 27.3 pg (25-34); Mean Corpuscular Hgb Conc 33.5 g/dL (32-36); Mean Corpuscular Volume 81.5 fL (80-100); Mean Platelet Volume 9.4 fL (7.4-10.4); Monocytes # (auto) 0.54 K/uL (0.11-0.59); Monocytes % (auto) 6.6 %; Neutrophils # (auto) 5.09 K/uL (1.4-6.5); Neutrophils % (auto) 62.2 %; Platelet Count 285 K/uL (130-400); RDW Coefficient of Variation 13.4 % (11.5-14.5); RDW Standard Deviation 40.6 fL (36.4-46.3); Red Blood Count 4.39 M/uL (4.2-5.4)
[2020-03-15 05:40] LABS: Partial Thromboplastin Ratio 1.9
[2020-03-15 05:47] LABS: Partial Thromboplastin Time 52.5 Seconds (21.0-31.0)
[2020-03-15 05:50] LABS: Albumin Level 2.3 gm/dl (3.4-5.0); Calcium 8.4 mg/dl (8.5-10.1); Creatinine Clr Calc Pharmacy 61.1 ml/min; Est GFR (African American) 97.2; Est GFR (Non-African American) 83.8; Potassium 3.3 mmol/L (3.5-5.1)
[2020-03-15 05:54] LABS: Albumin Globulin Ratio 0.7 (0.9-2); Bilirubin,Total 0.6 mg/dl (0.2-1); Globulin 3.4 gm/dl (2.5-4.0); Total Protein 5.7 gm/dl (6.4-8.2)
[2020-03-15] MEDS ORDERED: POTASSIUM CHLORIDE CRTAB 20 MEQ TABCR PO STA (08:25)
[2020-03-15] MEDS: METOPROLOL TARTRATE 25 MG TAB PO SCH ×4 (09:05→20:51)
[2020-03-15] MEDS: POTASSIUM CHLORIDE CRTAB 20 MEQ TABCR PO SCH (09:05)
[2020-03-15] MEDS: LACTOBACILLUS ACIDOPHILUS 1 GM PACK PO SCH ×3 (09:06→17:25)
[2020-03-15] MEDS: AMOXICILLIN/CLAVULANATE 875 MG TAB PO SCH ×2 (09:06→17:25)
[2020-03-15] MEDS: POT PHOSPHATE MONOBASIC W/ SOD TAB PO SCH ×4 (09:06→20:52)
[2020-03-15] MEDS: PANTOprazole 40 MG TAB PO SCH (09:06)
[2020-03-15] MEDS: POLYETHYLENE (MIRALAX) 17 GM PACK PO SCH (09:07)
[2020-03-15] MEDS: MAGNESIUM OXIDE 400 MG TAB PO SCH (09:08)
[2020-03-15] MEDS: DOCUSATE SODIUM 100 MG CAP PO SCH ×2 (09:09→20:49)
--- NOTE | 2020-03-15 10:21 | Electrocardiogram Report ---
Test Reason : Blood Pressure : / mmHG Vent. Rate : 080 BPM Atrial Rate : 080 BPM P-R Int : 146 ms QRS Dur : 146 ms QT Int : 452 ms P-R-T Axes : 075 -64 095 degrees QTc Int : 521 ms Normal sinus rhythm Left axis deviation Left bundle branch block Abnormal ECG When compared with ECG of 14-MAR-2020 06:38, Premature atrial complexes are no longer Present Confirmed by Chalo Bernal ([id number]) on 03/15/2020 10:21:02 AM Referred By: REFERRED SELF Confirmed By:Alonso Bernal
[2020-03-15] MEDS: HEPARIN SODIUM/DEXTROSE 25,000 UNITS/500 ML BAG IV SCH ×2 (11:33→20:50)
[2020-03-15] MEDS ORDERED: FUROSEMIDE 20 MG in SYRINGE 0 ML IV ONE (11:47)
--- NOTE | 2020-03-15 11:56 | Cardiology Progress Note ---
Date of Service March 15, 2020 Assessment & Plan (1) Paroxysmal atrial fibrillation: (2) LBBB (left bundle branch block): (3) Syncope: Continue amiodarone infusion. Potassium chloride replacement ordered by the primary team. Continue oral metoprolol. Clinically, patient has tachycardia bradycardia syndrome syndrome based on symptomatic AF RVR, LBBB, recurrent cb syncope). -If remains a stable from an infection standpoint, plan a pacemaker tomorrow. -Continue heparin bridge, hold at 4 AM on 03/16/2020 in preparation for pacemaker. -Prior to hospital treatment with verapamil discontinued for now. (4) Heart failure, diastolic, with acute decompensation: Likely developed some degree of volume overload from IV fluids. IV antibiotics have been discontinued. Proceed with another dose of furosemide 20 mg this morning. Remove Saeed catheter this afternoon, 1500. Admission and Anticipated Discharge Date Admission Date: March 11, 2020 Subjective Chief complaint: Follow-up shortness of breath, abdominal discomfort Subjective: Patient rested well last evening. Urine output noted after receiving 20 mg of furosemide, and on telemetry, she converted from atrial fibrillation with to sinus rhythm last evening, 03/14/2020 at 1802. She had 2 bowel movements last night. And she notes interval improvement in terms of her shortness of breath as well as abdominal discomfort. She remains on a heparin infusion and amiodarone infusion. Saeed catheter in place. Review of Systems Review of Systems: All systems reviewed & are unremarkable except as noted in HPI & below Physical Exam Physical Exam: Temp Pulse Resp BP Pulse Ox 36.8 C 82 17 123/59 L 93 03/15/20 04:00 03/15/20 09:00 03/15/20 09:00 03/15/20 09:00 03/15/20 09:00 Constitutional: WD/WN, vitals as above Respiratory: Auscultation: + rales (Mild bibasilar rales) Cardiovascular: Rate/Rhythm: regular rhythm Heart Sounds: no murmur Vessels: no JVD Extremities: no edema Gastrointestinal (Abdomen): normal bowel sounds, soft, nontender, no hepatosplenomegaly Neurologic: PERRL, EOMI, accommodation nl, no face palsy, no dysarthria Results & Data ([facility]) Vital Signs (Past 12 Hours) Vital Signs Temp Pulse Pulse Resp BP BP Pulse Ox 03/15/20 09:00 82 17 123/59 L 93 03/15/20 08:00 85 23 120/66 93 03/15/20 07:00 78 22 122/55 L 92 03/15/20 06:00 79 12 119/58 L 91 03/15/20 05:30 79 18 91 03/15/20 05:00 81 21 135/66 91 03/15/20 04:30 72 12 91 03/15/20 04:00 36.8 C 76 18 112/54 L 91 03/15/20 03:30 75 21 91 03/15/20 03:00 76 22 114/53 L 91 03/15/20 02:30 77 19 91 03/15/20 02:00 70 23 120/56 L 92 03/15/20 01:30 68 23 91 03/15/20 01:00 70 15 111/55 L 91 03/15/20 00:30 69 20 91 03/15/20 00:00 36.9 C 75 16 116/60 92 (1) Syncope Syncope type: unspecified Qualified Code(s): R55 - Syncope and collapse
[2020-03-15 14:55] LABS: BUN Creatinine Ratio 11.8 (10-20); Calcium 8.8 mg/dl (8.5-10.1); Creatinine Clr Calc Pharmacy 46.9 ml/min; Est GFR (African American) 85.8; Est GFR (Non-African American) 74.1; Potassium 3.8 mmol/L (3.5-5.1)
--- NOTE | 2020-03-15 18:29 | Hospitalist Progress Note ---
Date of Service March 15, 2020 Assessment & Plan (1) Abdominal pain: (1) Abdominal pain: Pt is 89 y/o F with PMH HTN, HLD, paroxysmal atrial fibrillation on Eliquis, LBBB, cerebral carotid artery aneurysm clipped in 1988, right lung CA s/p surgery presented to ER with c/o mid and lower abdominal pain x 1 day with nausea. ABDOMINAL PAIN SEVERE CONSTIPATION - total bili improved from 1.3 to 0.9 - CT abdomen: 1. There is mild to moderate intrahepatic biliary ductal dilatation, which has increased from yesterday. This is of indeterminant etiology and significance, and may be related to fasting state status post cholecystectomy. Correlate with clinical findings and serum bilirubin levels. 2. There is increasing bibasilar airspace consolidation as compared to yesterday. Correlate clinically for evidence of pneumonia/aspiration pneumonitis. 3. Small pleural effusions are new from yesterday. 4. Intralobular septal thickening is noted at the lung bases. Correlate clinically for evidence of congestive change/fluid overload. 5. Moderate to advanced colonic diverticulosis without CT evidence of acute diverticulitis. 6. There is postoperative change from previous sigmoid colon resection with colocolonic anastomosis. No bowel obstruction is seen. - MRCP was not done due to presence of intracranial/brain aneurysm clips Mesenteric and portal vein ultrasound demonstrated patent vessels - resolved with BMs GI consulted, recommend outpatient EGD and EUS ASPIRATION PNEUMONIA - afebrile, no leukocytosis blood cultures negative - continue Augmentin PO day 3/5 RECENT UTI, E COLI - resolved - Urine culture: Corynebacterium A FIB IN RVR POSSIBLE TACHYBRADY SYNDROME - continue Amiodarone drip continue Heparin drip--> hold at 4am - Metoprolol increased to 12.5mg QID Verapamil held - no medical contraindication to proceed with pacemaker placement ACUTE ON CHRONIC DIASTOLIC CHF - resolved with IV Lasix HISTORY OF TIA - usual Eliquis on hold - continue Heparin drip--> hold at 4am HTN - monitor closesly CODE STATUS: Full code DVT prophylaxis: on Heparin Disposition pending will need PT/OT evaluation lives with at home Admission and Anticipated Discharge Date Admission Date: March 11, 2020 Subjective ff up for possible tachy lizeth syndrome, etc seen resting in bed, comfortable, in good spirits states she feels better today no chest pain, dyspnea, palpitations has mild intermittent cough- with clear sputum, no fever/chills no abdominal pain, has loose BMs after laxative, no nausea no other symptoms Review of Systems Review of Systems: All systems reviewed & are unremarkable except as noted in Subjective Physical Exam Physical Exam: General- oriented x 3, not in distress, speaks in sentences with no effort or accessory muscle use Eyes- anicteric Neck- no JVD Lungs- clear breath sounds bilaterally no wheezing no crackles good air entry bilaterally Heart- normal rate, regular rhythm; no murmurs Abdomen- normal bowel sounds, nondistended, soft, nontender Extremities- no pretibial edema, no calf tenderness Neuro- alert, oriented x 3; no gross focal neurologic deficits Skin- warm & dry Results & Data Results & Data ([facility]) Vital Signs (Past 12 Hours) Vital Signs Pulse Pulse Pulse Resp BP BP Pulse Ox 03/15/20 17:27 86 120/67 03/15/20 16:00 80 03/15/20 15:09 77 110/64 03/15/20 14:00 82 22 119/56 L 03/15/20 13:12 81 115/61 03/15/20 12:00 83 12 133/63 03/15/20 11:00 88 17 138/77 03/15/20 10:00 82 15 157/72 H 94 03/15/20 09:00 82 17 123/59 L 93 03/15/20 08:00 85 23 120/66 93 03/15/20 07:00 78 22 122/55 L 92 Laboratory Results Laboratory Results - last 24 hr 03/14/20 03/15/20 03/15/20 20:41 04:51 04:51 WBC 8.20 RBC 4.39 Hgb 12.0 Hct 35.8 L MCV 81.5 MCH 27.3 MCHC 33.5 RDW Std Deviation 40.6 RDW Coeff of Coleman 13.4 Plt Count 285 MPV 9.4 Immature Gran % (Auto) 0.2 Neut % (Auto) 62.2 Lymph % (Auto) 24.5 [place] % (Auto) 6.6 Eos % (Auto) 6.3 Baso % (Auto) 0.2 Neut # (Auto) 5.09 Lymph # (Auto) 2.01 [place] # (Auto) 0.54 Eos # (Auto) 0.52 H Baso # (Auto) 0.02 Immature Gran # (Auto) 0.02 APTT 52.5 H* PTT Ratio 1.9 Sodium Potassium Chloride Carbon Dioxide Anion Gap BUN Creatinine Est Cr Clr Drug Dosing Est GFR ( Amer) Est GFR (Non-Af Amer) BUN/Creatinine Ratio Glucose POC Glucose 103 H Fasting Glucose Calcium Total Bilirubin AST ALT Alkaline Phosphatase Total Protein Albumin Globulin Albumin/Globulin Ratio 03/15/20 03/15/20 04:51 14:17 WBC RBC Hgb Hct MCV MCH MCHC RDW Std Deviation RDW Coeff of [place] Plt Count MPV Immature Gran % (Auto) Neut % (Auto) Lymph % (Auto) [place] % (Auto) Eos % (Auto) Baso % (Auto) Neut # (Auto) Lymph # (Auto) [place] # (Auto) Eos # (Auto) Baso # (Auto) Immature Gran # (Auto) APTT PTT Ratio Sodium 140 140 Potassium 3.3 L 3.8 D Chloride 105 104 Carbon Dioxide 32 31 Anion Gap 3.0 5.0 BUN 9 9 Creatinine 0.56 L 0.73 Est Cr Clr Drug Dosing 61.1 46.9 Est GFR ( Amer) 97.2 85.8 Est GFR (Non-Af Amer) 83.8 74.1 BUN/Creatinine Ratio 11.8 Glucose 88 POC Glucose Fasting Glucose 94 Calcium 8.4 L 8.8 Total Bilirubin 0.6 AST 10 L ALT 20 Alkaline Phosphatase 77 Total Protein 5.7 L Albumin 2.3 L Globulin 3.4 Albumin/Globulin Ratio 0.7 L
[2020-03-15] MEDS: ATORVASTATIN 20 MG TAB PO SCH (20:51)
[2020-03-16] MEDS: AMIODARONE / D5W 360 MG/200 ML BAG IV SCH ×2 (02:40→13:41)
[2020-03-16 06:10] LABS: Basophils # (auto) 0.03 K/uL (0-0.2); Basophils % (auto) 0.4 %; Eosinophils # (auto) 0.39 K/uL (0-0.5); Eosinophils % (auto) 5.1 %; Hematocrit (blood only) 36.4 % (37-47); Hemoglobin 12.7 g/dL (12.0-16.0); Immature Granulocytes # (auto) 0.02 K/uL (0.00-0.02); Immature Granulocytes % (auto) 0.3 %; Lymphocytes # (auto) 1.71 K/uL (1.2-3.4); Lymphocytes % (auto) 22.4 %; Mean Corpuscular Hemoglobin 28.3 pg (25-34); Mean Corpuscular Hgb Conc 34.9 g/dL (32-36); Mean Corpuscular Volume 81.3 fL (80-100); Monocytes # (auto) 0.56 K/uL (0.11-0.59); Monocytes % (auto) 7.3 %; Neutrophils # (auto) 4.94 K/uL (1.4-6.5); Neutrophils % (auto) 64.5 %; Platelet Count 355 K/uL (130-400); RDW Coefficient of Variation 13.4 % (11.5-14.5); RDW Standard Deviation 40.5 fL (36.4-46.3); Red Blood Count 4.48 M/uL (4.2-5.4); White Blood Count 7.65 K/uL (4.8-10.8)
[2020-03-16 06:23] LABS: Partial Thromboplastin Ratio 1.3; Partial Thromboplastin Time 35.1 Seconds (21.0-31.0)
[2020-03-16 06:44] LABS: Albumin Level 2.4 gm/dl (3.4-5.0); Calcium 8.8 mg/dl (8.5-10.1); Est GFR (African American) 95.5; Est GFR (Non-African American) 82.4; Potassium 3.5 mmol/L (3.5-5.1)
[2020-03-16 06:55] LABS: Albumin Globulin Ratio 0.6 (0.9-2); Bilirubin,Total 0.7 mg/dl (0.2-1); Globulin 3.7 gm/dl (2.5-4.0); Phosphorus 3.9 mg/dl (2.5-4.9); Total Protein 6.1 gm/dl (6.4-8.2)
[2020-03-16] MEDS ORDERED: LIDOCAINE HCL 1% 20 ML VIAL ONE (07:01)
[2020-03-16] MEDS ORDERED: BACITRACIN INJ 50,000 UNIT VIAL ONE (07:01)
[2020-03-16] MEDS ORDERED: BUPIVACAINE 0.25% 30 ML VIAL ONE (07:01)
[2020-03-16] MEDS ORDERED: fentaNYL citrate 100 MCG/2 ML VIAL ONE (07:42)
[2020-03-16] MEDS ORDERED: MIDAZOLAM HCL 5 MG/ML 1 ML VIAL ONE (07:42)
[2020-03-16] MEDS ORDERED: WATER, STERILE FOR INJ 10 ML VIAL ONE (07:49)
--- NOTE | 2020-03-16 08:12 | Pre Anesthesia Assessment ---
Date of Service March 16, 2020 Pre Sedation Assessment Vital Signs Temp Pulse Pulse Pulse Resp BP BP 03/16/20 07:41 36.9 C 143 H 16 03/16/20 07:00 114 H 03/16/20 04:11 37.2 C 82 18 03/16/20 00:00 78 03/15/20 23:17 36.7 C 74 18 109/63 03/15/20 19:38 36.7 C 87 18 115/70 03/15/20 17:27 86 120/67 03/15/20 16:00 80 03/15/20 15:09 77 110/64 03/15/20 14:00 82 22 119/56 L 03/15/20 13:12 81 115/61 03/15/20 12:00 83 12 133/63 03/15/20 11:00 88 17 138/77 03/15/20 10:00 82 15 157/72 H 03/15/20 09:00 82 17 123/59 L BP Pulse Ox 03/16/20 07:41 132/81 92 03/16/20 07:00 03/16/20 04:11 109/60 94 03/16/20 00:00 03/15/20 23:17 94 03/15/20 19:38 93 03/15/20 17:27 03/15/20 16:00 03/15/20 15:09 03/15/20 14:00 03/15/20 13:12 03/15/20 12:00 03/15/20 11:00 03/15/20 10:00 94 03/15/20 09:00 93 Cardiovascular + tachycardic Respiratory normal respiratory effort, lungs clear to auscultation Pre-Sedation Airway Assessment Smoking Status: Never smoker Short, Thick Neck: No Thyromental Distance: > or= 3.5 Finger Breadths Oral Cavity: + WNL Mallampati Class: II ASA: ASA2 NPO Status Date of Last Intake of Fluids: 03/15/20 Time of Last Intake of Fluids: 18:00 Date of Last Intake of Solid Food: 03/15/20 Time of Last Intake of Solid Foods: 18:00 Procedure Planning Contraindications for Sedation: none Current Medications Reviewed: Yes Notes The planned sedation has been discussed with the patient. Informed Consent was obtained. I have identified the patient, determined the appropriateness of sedation and have assessed the patient immediately prior to the procedure. All medicine(s) and interventions are by my order.
--- NOTE | 2020-03-16 08:12 | History & Physical Bridge Note ---
Date of Service March 16, 2020 History & Physical Bridge Note I have examined the patient, reviewed the History & Physical and in the interval since the performance of the History & Physical I have noted the following changes of clinical significance: pt with TBS for a ppm
[2020-03-16] MEDS ORDERED: MIDAZOLAM HCL 1 MG/ML 2ML VIAL ONE (09:36)
--- NOTE | 2020-03-16 09:54 | Post Anesthesia Assessment ---
Date of Service March 16, 2020 Post Sedation Assessment Vital Signs Temp Pulse Pulse Pulse Resp BP BP 03/16/20 07:41 36.9 C 143 H 16 03/16/20 07:00 114 H 03/16/20 04:11 37.2 C 82 18 03/16/20 00:00 78 03/15/20 23:17 36.7 C 74 18 109/63 03/15/20 19:38 36.7 C 87 18 115/70 03/15/20 17:27 86 120/67 03/15/20 16:00 80 03/15/20 15:09 77 110/64 03/15/20 14:00 82 22 119/56 L 03/15/20 13:12 81 115/61 03/15/20 12:00 83 12 133/63 03/15/20 11:00 88 17 138/77 03/15/20 10:00 82 15 157/72 H BP Pulse Ox 03/16/20 07:41 132/81 92 03/16/20 07:00 03/16/20 04:11 109/60 94 03/16/20 00:00 03/15/20 23:17 94 03/15/20 19:38 93 03/15/20 17:27 03/15/20 16:00 03/15/20 15:09 03/15/20 14:00 03/15/20 13:12 03/15/20 12:00 03/15/20 11:00 03/15/20 10:00 94 Recovery Score Activity: Moves 4 extremities Respiration: Deep Breath/Cough Circulation: +/-20% PreAnes Value Consciousness: Fully Awake Oxygen Saturation: > 92% On Room Air Discharge Sedation Level of Care: Fast Track Phase II Post Sedation Plan On clinical assessment, the patient appears to have tolerated the sedation without complications. Patient is recovering as anticipated. Patient will continue to be monitored by nursing and may be discharged when sed ation discharge criteria are met per below protocol. Upon Completions of procedure up to 15 minutes continue every 5 minute vital signs and the P.A.R. score; then discharge to a Phase I or Fast Track to Phase II per the following guidelines: * Discharge Patient to appropriate Phase II area if PAR is 8 or greater or return to pre- procedure baseline. The post - procedure orders will be as directed. * If PAR score is less than 8 or not return to pre-procedure baseline then patient will follow Phase I monitoring till PAR is reached for Phase II. The Phase I may be done in procedure room or may call to secure a Phase I area. * If naloxone or flumazenil are used for reversal, hold in Phase I for continued monitoring from when last reversal dose was given for a minimum of 60 minutes or longer pending the nurse and/or physician discretion of patient condition before discharge to Phase II. Please call the Sedation Physician to re-evaluate and complete post-note for discharge to Phase II area. Do NOT discharge from procedure sedation or Phase 1 until post- sedation evaluation note is complete by procedure /sedation MD Sedation Discharge Instructions to be given to the patient at discharge to home.
--- NOTE | 2020-03-16 09:55 | Operative Report ---
Post Operative Report Pre & Post Diagnosis TBS Operation Date: 03/16/20 08:00 <No data on this case meets the specified criteria> I identified the patient and participated in the time-out.: Yes Procedure Operation Date: 03/16/20 08:00 dual chamber ppm intracardiac EGM of HIS bundle Peripheral venogram <No data on this case meets the specified criteria> Surgeon Lilli Carranza, DO Inspector Handbag Frames none Estimated Blood Loss 20 Findings Consistent with Post-Op Diagnosis Specimens none Description of Procedure see official I attest to the content of the Intraoperative Record and any orders documented therein. Any exceptions are noted below.
[2020-03-16] MEDS: METOPROLOL TARTRATE 25 MG TAB PO SCH ×3 (10:44→21:29)
[2020-03-16] MEDS: AMIODARONE 200 MG TAB PO SCH ×2 (11:58→16:43)
[2020-03-16] MEDS: PANTOprazole 40 MG TAB PO SCH (11:58)
[2020-03-16] MEDS: POT PHOSPHATE MONOBASIC W/ SOD TAB PO SCH ×4 (11:59→16:45)
[2020-03-16] MEDS: LACTOBACILLUS ACIDOPHILUS 1 GM PACK PO SCH ×4 (11:59→16:42)
[2020-03-16] MEDS: AMOXICILLIN/CLAVULANATE 875 MG TAB PO SCH ×2 (11:59→16:44)
[2020-03-16] MEDS: POLYETHYLENE (MIRALAX) 17 GM PACK PO SCH (12:04)
--- NOTE | 2020-03-16 12:12 | XRay Report ---
SINGLE VIEW CHEST CLINICAL HISTORY: Status post pacemaker implantation. FINDINGS: An AP, portable, upright chest radiograph is compared to study dated 03/12/2020 and correlat ed with chest CT dated 04/19/2019. The examination is degraded by portable technique and patient rotati on. A 2-lead cardiac pacemaker has been placed. This partially obscures the left mid chest. Leads pro ject over the right atrial appendage and the right ventricle. The heart is mildly enlarged noting ath erosclerotic calcification of the thoracic aorta. There is mild pulmonary vascular congestion. Emphys colette and chronic interstitial thickening are similar to previous. Postoperative change is noted in the right hilum. Volume loss in the right lung suggests previous surgical resection. There are small ple ural effusions with bibasilar consolidation. No pneumothorax is seen. The skeletal structures are ost eopenic. The bony thorax is grossly intact. Arthritic change is noted in the left shoulder. A right s houlder arthroplasty is in place. IMPRESSION: 1. A 2-lead cardiac pacemaker has been placed as above. No pneumothorax is identified post procedure. 2. Cardiomegaly and emphysema with mild pulmonary vascular congestion. 3. Small pleural effusions with bibasilar consolidation. ACT 112: Negative or not required by law. Electronically signed by: Lars Amaya M.D. 03/16/2020 12:10 PM
[2020-03-16] MEDS ORDERED: 0.2 MICRON FILTER SET 1 EA IV ONE (13:15)
--- NOTE | 2020-03-16 13:25 | Cardiology Progress Note ---
Date of Service March 16, 2020 Assessment & Plan (1) Tachycardia-bradycardia syndrome: (2) LBBB (left bundle branch block): (3) Paroxysmal atrial fibrillation: Patient underwent dual-chamber permanent pacemaker, with insertion of left bundle lead. Initial plan was to transition to oral metoprolol and oral amiodarone post device. With recurrent AF , will resume infusion, along with oral medication. Resume Eliquis this evening. Note weight of 58.9 kg, and age > 80 years, appropriate dose of Eliquis is therefore 2.5 mg BID. Has wound check / pacer interrogation at [facility] scheduled for 03/23/20 at 12 pm. Admission and Anticipated Discharge Date Admission Date: March 11, 2020 Subjective Patient seen in general cardiology follow-up after transfer from the electrophysiology lab having had a pacemaker this morning. Her amiodarone infusion was discontinued post pacemaker. Upon arrival to the telemetry floor, sinus rhythm in the 70 to 80 bpm range was noted. The patient however reverted to atrial fibrillation with rapid ventricular response 12:05 PM until 1308 p.m. Physical Exam Physical Exam: Temp Pulse Resp BP Pulse Ox 36.8 C 121 H 14 110/68 92 03/16/20 11:11 03/16/20 12:41 03/16/20 12:41 03/16/20 12:41 03/16/20 12:41 Constitutional: WD/WN, vitals as above Respiratory: normal respiratory effort, lungs clear to auscultation Cardiovascular: Rate/Rhythm: regular rate Vessels: no JVD Extremities: no edema Gastrointestinal (Abdomen): normal bowel sounds, soft, nontender, no hepatosplenomegaly Results & Data ([facility]) Vital Signs (Past 12 Hours) Vital Signs Temp Pulse Pulse Pulse Resp BP BP 03/16/20 12:41 140 H 121 H 14 110/68 03/16/20 12:36 89 03/16/20 12:11 139 H 14 105/55 L 03/16/20 11:11 36.8 C 88 20 118/70 03/16/20 10:34 36.8 C 90 20 119/74 03/16/20 10:16 89 16 116/68 03/16/20 10:01 88 16 132/64 03/16/20 07:41 36.9 C 143 H 16 132/81 03/16/20 07:00 114 H 03/16/20 04:11 37.2 C 82 18 109/60 Pulse Ox 03/16/20 12:41 92 03/16/20 12:36 03/16/20 12:11 95 03/16/20 11:11 93 03/16/20 10:34 92 03/16/20 10:16 92 03/16/20 10:01 93 03/16/20 07:41 92 03/16/20 07:00 03/16/20 04:11 94 Laboratory Results Cardiac Enzymes 03/16/20 Range/Units 05:21 AST 10 L (15-37) U/L Coagulation 03/16/20 Range/Units 05:21 APTT 35.1 H (21.0-31.0) Seconds CBC 03/16/20 Range/Units 05:21 WBC 7.65 (4.8-10.8) K/uL RBC 4.48 (4.2-5.4) M/uL Hgb 12.7 (12.0-16.0) g/dL Hct 36.4 L (37-47) % Plt Count 355 (130-400) K/uL Neut # (Auto) 4.94 (1.4-6.5) K/uL Lymph # (Auto) 1.71 (1.2-3.4) K/uL [place] # (Auto) 0.56 (0.11-0.59) K/uL Eos # (Auto) 0.39 (0-0.5) K/uL Baso # (Auto) 0.03 (0-0.2) K/uL Comprehensive Metabolic Panel 03/15/20 03/16/20 Range/Units 14:17 05:21 Sodium 140 140 (136-145) mmol/L Potassium 3.8 D 3.5 (3.5-5.1) mmol/L Chloride 104 105 (98-107) mmol/L Carbon Dioxide 31 30 (21-32) mmol/L BUN 9 10 (7-18) mg/dl Creatinine 0.73 0.59 L (0.6-1.2) mg/dl Glucose 88 (70-99) mg/dl Calcium 8.8 8.8 (8.5-10.1) mg/dl AST 10 L (15-37) U/L ALT 21 (12-78) U/L Alkaline Phosphatase 78 (45-117) U/L Total Protein 6.1 L (6.4-8.2) gm/dl Albumin 2.4 L (3.4-5.0) gm/dl Intake and Output 03/15/20 03/16/20 03/16/20 22:59 06:59 14:59 Intake Total 583.675 / 1707.883 142.641 / 1707.883 134.156 / 134.156 Output Total 401 / 1904 1903 Balance 182.675 / -196.117 141.641 / -196.117 134.156 / 134.156 Intake: IV 283.675 / 687.883 142.641 / 687.883 134.156 / 134.156 NEXTERONE / D5W 360 mg In 200 126.642 / 392.050 65.408 / 392.050 134.156 / 134.156 ml @ 0.5 MG/MIN 16.667 mls/hr IV .Q12H BERNARDINO Rx#:[id number] HEPARIN SODIUM/DEXTROSE 25,000 157.033 / 295.833 77.233 / 295.833 0 / 0 units In 500 ml @ 700 UNITS/HR 14 mls/hr IV .Q24H BERNARDINO Rx#: [id number] Oral 300 / 300 Output: Urine Amount (Catheter) 400 / 1900 Saeed/Indwelling 400 / 1900 # Bowel Movements Other: Other Intake Source npo Weight 58.9 kg Weight Measurement Method Standing Scale
[2020-03-16] MEDS: DOCUSATE SODIUM 100 MG CAP PO SCH ×2 (13:41→21:28)
[2020-03-16] MEDS: POTASSIUM CHLORIDE CRTAB 20 MEQ TABCR PO SCH (13:41)
[2020-03-16] MEDS: MAGNESIUM OXIDE 400 MG TAB PO SCH (13:42)
--- NOTE | 2020-03-16 15:30 | Electrocardiogram Report ---
Test Reason : Blood Pressure : / mmHG Vent. Rate : 082 BPM Atrial Rate : 082 BPM P-R Int : 146 ms QRS Dur : 138 ms QT Int : 422 ms P-R-T Axes : 057 -48 072 degrees QTc Int : 493 ms Normal sinus rhythm Left axis deviation Left bundle branch block Abnormal ECG When compared with ECG of 15-MAR-2020 06:43, No significant change was found Confirmed by Chalo Bernal ([id number]) on 03/16/2020 3:30:34 PM Referred By: REFERRED SELF Confirmed By:Alonso Bernal
--- NOTE | 2020-03-16 18:19 | Hospitalist Progress Note ---
Date of Service March 16, 2020 Assessment & Plan (1) Abdominal pain: (1) Abdominal pain: Pt is 89 y/o F with PMH HTN, HLD, paroxysmal atrial fibrillation on Eliquis, LBBB, cerebral carotid artery aneurysm clipped in 1988, right lung CA s/p surgery presented to ER with c/o mid and lower abdominal pain x 1 day with nausea. ABDOMINAL PAIN SEVERE CONSTIPATION - total bili improved from 1.3 to 0.9 - CT abdomen: 1. There is mild to moderate intrahepatic biliary ductal dilatation, which has increased from yesterday. This is of indeterminant etiology and significance, and may be related to fasting state status post cholecystectomy. Correlate with clinical findings and serum bilirubin levels. 2. There is increasing bibasilar airspace consolidation as compared to yesterday. Correlate clinically for evidence of pneumonia/aspiration pneumonitis. 3. Small pleural effusions are new from yesterday. 4. Intralobular septal thickening is noted at the lung bases. Correlate clinically for evidence of congestive change/fluid overload. 5. Moderate to advanced colonic diverticulosis without CT evidence of acute diverticulitis. 6. There is postoperative change from previous sigmoid colon resection with colocolonic anastomosis. No bowel obstruction is seen. - MRCP was not done due to presence of intracranial/brain aneurysm clips Mesenteric and portal vein ultrasound demonstrated patent vessels - resolved with [facility] GI consulted, recommend outpatient EGD and EUS ASPIRATION PNEUMONIA - afebrile, no leukocytosis blood cultures negative - continue Augmentin PO day 4/5 RECENT UTI, E COLI - resolved - Urine culture: Corynebacterium A FIB IN RVR POSSIBLE TACHYBRADY SYNDROME -Status post pacemaker placement 03/16/2020 -Started on p.o. amiodarone 1 mg 3 times daily, continued on Amiodarone drip for the meantime Eliquis restarted - Metoprolol 5 mg twice daily Verapamil held - no medical contraindication to proceed with pacemaker placement ACUTE ON CHRONIC DIASTOLIC CHF - resolved with IV Lasix HISTORY OF TIA -Eliquis resumed HTN -Lisinopril on hold CODE STATUS: Full code DVT prophylaxis: Eliquis Disposition pending will need PT/OT evaluation lives with at home Admission and Anticipated Discharge Date Admission Date: March 11, 2020 Subjective Follow-up for tachybradycardia syndrome, etc. Seen resting in bed, not in distress, comfortable Status post pacemaker placement Heart rate in the 140s earlier, given p.o. metoprolol, now heart rate is in the 90s Patient denies having any chest pain, shortness of breath, palpitations or dizziness No abdominal pain, tolerating diet well No fevers or chills No other symptoms Review of Systems Review of Systems: All systems reviewed & are unremarkable except as noted in Subjective Physical Exam Physical Exam: General- oriented x 3, not in distress, speaks in sentences with no effort or accessory muscle use Eyes- anicteric Neck- no JVD Lungs- clear breath sounds bilaterally, no wheezing, no rales Heart- normal rate, regular rhythm; no murmurs Pacemaker site, with dressing in place, no bleeding or discharge, no surrounding hematoma Abdomen- normal bowel sounds, nondistended, soft, nontender Extremities- no pretibial edema, no calf tenderness Neuro- alert, oriented x 3; no gross focal neurologic deficits Skin- warm & dry Results & Data Results & Data ([facility]) Vital Signs (Past 12 Hours) Vital Signs Temp Pulse Pulse Pulse Pulse Resp BP 03/16/20 15:22 36.7 C 81 16 03/16/20 12:41 140 H 121 H 14 03/16/20 12:36 89 03/16/20 12:11 139 H 14 03/16/20 11:11 36.8 C 88 20 118/70 03/16/20 10:34 36.8 C 90 20 03/16/20 10:16 89 16 03/16/20 10:01 88 16 03/16/20 07:41 36.9 C 143 H 16 03/16/20 07:00 114 H BP Pulse Ox 03/16/20 15:22 110/64 92 03/16/20 12:41 110/68 92 03/16/20 12:36 03/16/20 12:11 105/55 L 95 03/16/20 11:11 93 03/16/20 10:34 119/74 92 03/16/20 10:16 116/68 92 03/16/20 10:01 132/64 93 03/16/20 07:41 132/81 92 03/16/20 07:00 Laboratory Results Laboratory Results - last 24 hr 03/16/20 03/16/20 03/16/20 05:21 05:21 05:21 WBC 7.65 RBC 4.48 Hgb 12.7 Hct 36.4 L MCV 81.3 MCH 28.3 MCHC 34.9 RDW Std Deviation 40.5 RDW Coeff of Coleman 13.4 Plt Count 355 MPV 10.0 Immature Gran % (Auto) 0.3 Neut % (Auto) 64.5 Lymph % (Auto) 22.4 [place] % (Auto) 7.3 Eos % (Auto) 5.1 Baso % (Auto) 0.4 Neut # (Auto) 4.94 Lymph # (Auto) 1.71 [place] # (Auto) 0.56 Eos # (Auto) 0.39 Baso # (Auto) 0.03 Immature Gran # (Auto) 0.02 APTT 35.1 H PTT Ratio 1.3 Sodium 140 Potassium 3.5 Chloride 105 Carbon Dioxide 30 Anion Gap 5.0 BUN 10 Creatinine 0.59 L Est Cr Clr Drug Dosing 58.0 Est GFR ( Amer) 95.5 Est GFR (Non-Af Amer) 82.4 Fasting Glucose 93 Calcium 8.8 Phosphorus 3.9 Total Bilirubin 0.7 AST 10 L ALT 21 Alkaline Phosphatase 78 Total Protein 6.1 L Albumin 2.4 L Globulin 3.7 Albumin/Globulin Ratio 0.6 L
[2020-03-16] MEDS: ACETAMINOPHEN 325 MG TAB PO PRN (19:41)
[2020-03-16] MEDS: traMADol HCL 50 MG TABLET PO PRN (21:27)
[2020-03-16] MEDS: APIXABAN 2.5 MG TAB PO SCH (21:28)
[2020-03-16] MEDS: ATORVASTATIN 20 MG TAB PO SCH (21:28)
[2020-03-17] MEDS: AMIODARONE / D5W 360 MG/200 ML BAG IV SCH ×3 (00:57→23:58)
[2020-03-17] MEDS: traMADol HCL 50 MG TABLET PO PRN (03:28)
[2020-03-17] MEDS: PROMETHAZINE HCL 12.5 MG in SODIUM CHLORIDE 0.9% 50 ML IV PRN ×2 (05:01→12:10)
[2020-03-17 07:29] LABS: Hematocrit (blood only) 35.6 % (37-47); Hemoglobin 12.2 g/dL (12.0-16.0); Mean Corpuscular Hgb Conc 34.3 g/dL (32-36); Mean Corpuscular Volume 81.8 fL (80-100); Mean Platelet Volume 9.7 fL (7.4-10.4); Platelet Count 319 K/uL (130-400); RDW Coefficient of Variation 13.5 % (11.5-14.5); Red Blood Count 4.35 M/uL (4.2-5.4); White Blood Count 8.32 K/uL (4.8-10.8)
[2020-03-17 08:01] LABS: Albumin Level 2.5 gm/dl (3.4-5.0); BUN Creatinine Ratio 19.3 (10-20); Creatinine Clr Calc Pharmacy 51.1 ml/min; Est GFR (African American) 91.6; Potassium 3.3 mmol/L (3.5-5.1)
[2020-03-17] MEDS: AMOXICILLIN/CLAVULANATE 875 MG TAB PO SCH ×2 (08:01→17:38)
[2020-03-17] MEDS: LACTOBACILLUS ACIDOPHILUS 1 GM PACK PO SCH ×3 (08:01→17:38)
[2020-03-17] MEDS: POTASSIUM CHLORIDE CRTAB 20 MEQ TABCR PO SCH ×3 (08:01→20:26)
[2020-03-17] MEDS: PANTOprazole 40 MG TAB PO SCH (08:01)
[2020-03-17] MEDS: METOPROLOL TARTRATE 25 MG TAB PO SCH ×2 (08:02→20:27)
[2020-03-17] MEDS: AMIODARONE 200 MG TAB PO SCH ×3 (08:02→17:37)
[2020-03-17] MEDS: APIXABAN 2.5 MG TAB PO SCH ×4 (08:02→20:27)
[2020-03-17] MEDS: MAGNESIUM OXIDE 400 MG TAB PO SCH (08:02)
[2020-03-17 08:04] LABS: Albumin Globulin Ratio 0.7 (0.9-2); Bilirubin,Total 0.7 mg/dl (0.2-1); Globulin 3.6 gm/dl (2.5-4.0); Total Protein 6.1 gm/dl (6.4-8.2)
[2020-03-17] MEDS ORDERED: APIXABAN 2.5 MG TAB PO SCH (09:00)
[2020-03-17] MEDS: POLYETHYLENE (MIRALAX) 17 GM PACK PO SCH (09:38)
[2020-03-17] MEDS: DOCUSATE SODIUM 100 MG CAP PO SCH ×2 (09:38→20:25)
--- NOTE | 2020-03-17 12:00 | Cardiology Progress Note ---
Date of Service March 17, 2020 Assessment & Plan (1) Paroxysmal atrial fibrillation: (2) Tachycardia-bradycardia syndrome: (3) LBBB (left bundle branch block): (4) Pacemaker: Continue oral and IV amiodarone today in addition to oral metoprolol. Verapamil discontinued. Monitor telemetry for recurrent episodes of atrial fibrillation. Resume oral anticoagulation with Eliquis, 2.5 mg twice daily. Replace potassium as indicated. No edema or signs of volume overload currently. No indication for diuretic therapy. Admission and Anticipated Discharge Date Admission Date: March 11, 2020 Subjective Patient seen and examined at the bedside. Brief episode of recurrent atrial fibrillation noted this a.m. Patient reports associated palpitations. No chest discomfort or heaviness. Denies lightheadedness, dizziness, syncope, or near syncope. Tolerating diet and medications. Intravenous amiodarone infusion restarted. Review of Systems Review of Systems: All systems reviewed & are unremarkable except as noted in Subjective Physical Exam Constitutional: well nourished and + ill appearing; no acute distress Respiratory: normal respiratory effort; no respiratory distress, no labored breathing and no retractions Auscultation: no crackles, no rales, no rhonchi and no wheezes Cardiovascular: Rate/Rhythm: regular rate and regular rhythm Heart Sounds: normal S1 and normal S2; no murmur Vessels: radial pulses present; no JVD and no carotid bruit Gastrointestinal (Abdomen): Inspection/Auscultation: abdomen normal to inspection and normal bowel sounds; abdomen not distended Percussion/Palpation: abdomen soft; abdomen nontender, no guarding and abdomen not rigid Skin: no rashes, warm and dry Neurologic: CN's II-XI intact bilaterally and moves all extremities Motor/Sensory: no tremor Psychiatric: A+Ox3, euthymic affect Results & Data ([facility]) Vital Signs (Past 12 Hours) Vital Signs Temp Pulse Pulse Resp BP BP Pulse Ox 03/17/20 10:48 75 03/17/20 07:58 36.6 C 03/17/20 07:56 82 16 124/62 94 03/17/20 07:55 36.5 C 72 18 122/66 92 03/17/20 03:47 36.5 C 69 18 123/69 94
--- NOTE | 2020-03-17 13:22 | Electrocardiogram Report ---
Test Reason : Blood Pressure : / mmHG Vent. Rate : 081 BPM Atrial Rate : 081 BPM P-R Int : 150 ms QRS Dur : 150 ms QT Int : 434 ms P-R-T Axes : 058 -47 085 degrees QTc Int : 504 ms Normal sinus rhythm Left axis deviation Left bundle branch block Abnormal ECG When compared with ECG of 16-MAR-2020 14:27, No significant change was found Confirmed by Paulo Woodward ([id number]) on 03/17/2020 1:21:48 PM Referred By: REFERRED SELF Confirmed By:Paulo Woodward
[2020-03-17] MEDS ORDERED: ALUMINUM/MAGNESIUM SUSP 30 ML UDC PO STA (16:59)
[2020-03-17] MEDS ORDERED: ALUMINUM/MAGNESIUM SUSP 30 ML UDC PO PRN (16:59)
--- NOTE | 2020-03-17 17:37 | Hospitalist Progress Note ---
Date of Service March 17, 2020 Assessment & Plan (1) Abdominal pain: (1) Abdominal pain: Pt is 89 y/o F with PMH HTN, HLD, paroxysmal atrial fibrillation on Eliquis, LBBB, cerebral carotid artery aneurysm clipped in 1988, right lung CA s/p surgery presented to ER with c/o mid and lower abdominal pain x 1 day with nausea. ABDOMINAL PAIN SEVERE CONSTIPATION - total bili improved from 1.3 to 0.9 - CT abdomen: 1. There is mild to moderate intrahepatic biliary ductal dilatation, which has increased from yesterday. This is of indeterminant etiology and significance, and may be related to fasting state status post cholecystectomy. Correlate with clinical findings and serum bilirubin levels. 2. There is increasing bibasilar airspace consolidation as compared to yesterday. Correlate clinically for evidence of pneumonia/aspiration pneumonitis. 3. Small pleural effusions are new from yesterday. 4. Intralobular septal thickening is noted at the lung bases. Correlate clinically for evidence of congestive change/fluid overload. 5. Moderate to advanced colonic diverticulosis without CT evidence of acute diverticulitis. 6. There is postoperative change from previous sigmoid colon resection with colocolonic anastomosis. No bowel obstruction is seen. - MRCP was not done due to presence of intracranial/brain aneurysm clips Mesenteric and portal vein ultrasound demonstrated patent vessels - resolved with [facility] consulted, recommend outpatient EGD and EUS ASPIRATION PNEUMONIA - afebrile, no leukocytosis blood cultures negative - continue Augmentin PO day 5/5 RECENT UTI, E COLI - resolved - Urine culture: Corynebacterium A FIB IN RVR POSSIBLE TACHYBRADY SYNDROME -Status post pacemaker placement 03/16/2020 -Started on p.o. amiodarone 400 mg 3 times daily, continued on Amiodarone drip for the meantime Eliquis restarted - Metoprolol 25 mg twice daily Verapamil held ACUTE ON CHRONIC DIASTOLIC CHF - resolved with IV Lasix HISTORY OF TIA -Eliquis HTN -Lisinopril on hold CODE STATUS: Full code DVT prophylaxis: Eliquis Disposition pending will need PT/OT evaluation lives with at home Admission and Anticipated Discharge Date Admission Date: March 11, 2020 Subjective Follow-up for tachybradycardia syndrome, etc. seen resting in bed, comfortable in the morning states she feels fine overall had an episode of HR 140s overnight, patient reported palpitations none this morning no dyspnea, chest pain no abdominal pain, nausea/vomiting no other symptoms Review of Systems Review of Systems: All systems reviewed & are unremarkable except as noted in Subjective Physical Exam Physical Exam: General- oriented x 3, not in distress, speaks in sentences with no effort or accessory muscle use Eyes- anicteric Neck- no JVD Lungs- clear breath sounds BL Heart- normal rate, regular rhythm; no murmurs pacemaker site no hematoma, bleeding, discharge Abdomen- normal bowel sounds, nondistended, soft, nontender Extremities- no pretibial edema, no calf tenderness Neuro- alert, oriented x 3; no gross focal neurologic deficits Skin- warm & dry Results & Data Results & Data ([facility]) Vital Signs (Past 12 Hours) Vital Signs Temp Pulse Pulse Resp BP Pulse Ox 03/17/20 15:30 36.6 C 69 19 105/61 91 03/17/20 15:17 65 03/17/20 11:46 36.3 C L 18 118/65 92 03/17/20 10:48 75 03/17/20 07:58 36.6 C 03/17/20 07:56 82 16 124/62 94 03/17/20 07:55 36.5 C 72 18 122/66 92 Laboratory Results Laboratory Results - last 24 hr 03/17/20 03/17/20 03/17/20 06:43 06:43 06:43 WBC 8.32 RBC 4.35 Hgb 12.2 Hct 35.6 L MCV 81.8 MCH 28.0 MCHC 34.3 RDW Std Deviation 41.0 RDW Coeff of [place] 13.5 Plt Count 319 MPV 9.7 Sodium 139 Potassium 3.3 L Chloride 103 Carbon Dioxide 30 Anion Gap 6.0 BUN 13 Creatinine 0.67 Est Cr Clr Drug Dosing 51.1 Est GFR ( Amer) 91.6 Est GFR (Non-Af Amer) 79.0 BUN/Creatinine Ratio 19.3 Glucose 90 Calcium 9.0 Magnesium 2.0 Total Bilirubin 0.7 AST 18 ALT 24 Alkaline Phosphatase 80 Total Protein 6.1 L Albumin 2.5 L Globulin 3.6 Albumin/Globulin Ratio 0.7 L
[2020-03-17] MEDS: ATORVASTATIN 20 MG TAB PO SCH (20:26)
--- NOTE | 2020-03-18 01:04 | Operative Report (OR) ---
DATE OF OPERATION: 03/16/2020 PREOPERATIVE DIAGNOSIS: Tachybrady syndrome. POSTOPERATIVE DIAGNOSIS: Tachybrady syndrome. PROCEDURE: Dual chamber rate responsive (left bundle) permanent pacemaker implantation under fluoroscopic guidance along with a peripheral venogram and intracardiac electrogram mapping of the His bundle region. SURGEON: Lilli Carranza DO. ASSISTANTS: None. ANESTHESIA: Monitored conscious sedation administered under my supervision by Eladio Sneed. Start time 0834, end time 0951. A total of 4 mg of Versed, 100 mcg of fentanyl. INTRAVENOUS FLUIDS: 50 mL. CONTRAST: 10 mL. ANTIBIOTICS: 1 gram of Ancef. BLOOD LOSS: 20 mL URINE OUTPUT: Not applicable. SPECIMENS: None. FINDINGS: See below. DRAINS: None. INDICATIONS: This is an 89-year-old female with past medical history for paroxysmal atrial fibrillation on Eliquis and amiodarone, left bundle branch block, hypertension, cerebral artery aneurysm clipping in 1988, hyperlipidemia, TIA with transient aphasia in June of 2017 and evidence of tachybrady syndrome. She was admitted to [facility] due to some abdominal pain. She continued to have episodes of tachybrady syndrome with rapid AFib and then sinus bradycardia. She was cleared from an infectious standpoint and it looked like most of her abdominal discomfort was probably heart failure due to the rapid afib. She was recommended a dual chamber pacemaker prior to discharge. CONSENT: Consent was obtained prior to the patient going into electrophysiology lab. The patient was informed of the risks, benefits and alternatives to procedure. Risks include but not limited to sudden cardiac , cardiac arrhythmias, cerebrovascular accident, myocardial infarction, injury to the blood vessels, chamber of the heart, lungs, bleeding, and infection. The patient understood these risks and agreed with procedure as planned. Informed consent was obtained. DESCRIPTION OF THE PROCEDURE: The patient was brought into the electrophysiology lab in fasting state. She was connected to continuous cardiac monitoring. A timeout was performed to ensure patient identity and procedure correctly. She received prophylactic antibiotics prior to incision. She was prepped and draped over the left temporal space in normal surgical standard fashion. Monitored conscious sedation was given throughout the procedure for patient's comfort level. [place] precautions maintained throughout the procedure. 10 mL of 1% lidocaine, bupivacaine mixture were given in the left deltopectoral groove. Incision was made in left deltopectoral groove. Blunt dissection performed down to identify cephalic vein; however, none could be identified, so a peripheral venogram was performed with 10 mL of IV contrast to identify the axillary vein. Venous axillary access was obtained through a needlestick without any problems. A 7-[place] sheath was inserted over one of the guidewires without any resistance. Dilator was removed and a second guidewire was inserted through the sheath to allow for retained venous access. Sheath was flushed and reinserted over the dilator and the 7-[place] sheath was inserted over one of the guidewires. The guidewire and dilator were removed. Then initially I placed the right atrial lead down into the right ventricular apex and screwed it in, so I had backup pacing. Then I placed a 8-[place] sheath through the retained guidewire and the guidewire and dilator were removed. Then the His sheath was advanced into the right ventricle over a Glidewire. The Glidewire and dilator were removed. Then with the camera in LEI 10, we did intracardiac electrogram mapping for the His bundle region. The AH was found to be 58 milliseconds, HV was 63 milliseconds. I then brought the camera in the LEI 30 and marked where the His is and then came down about 2 cm from that in a line that would extend out to the apex and marked that on my fluoroscopy screen as that is where I wanted to aim for my left bundle lead. Then, I positioned the sheath in that area and then LIBYAN 30. I then gave a series of clockwise turns to start screwing the lead into the septum, watching for PVCs and watching intermittently going on pacing to see how my QRS morphology in V1 as well as my pacing stim to QRS peak in V6 and my impedance dropped further eventually after a few times. I then gave 2 mL contrast puff through my sheath to see that my lead was very well into the septum. The His sheath was then slit under fluoroscopic guidance, then I went back to the right atrial lead that was screwed into the right ventricular apex at the time; I unscrewed that and then with the preformed J curve, I placed the lead into the right atrial appendage under fluoroscopic guidance. There was adequate pacing and sensing thresholds and no diaphragmatic stimulation with high output pacing. The sheath was slit and the lead was fixated to pectoralis muscle using 0 silk suture. Then, I went back to the sheath on the left bundle lead and slit that and then fixated the left bundle lead to the pectoralis muscle using 0 silk suture. A pursestring was placed around the bleeding puncture site to prevent any further backbleeding. The pocket was created using blunt dissection over the pectoralis muscle within the pectoralis fascia. Pocket was flushed with copious amounts of bacitracin saline wash and inspected for hemostasis. Pulse generator was attached to the leads making sure the pins were in appropriate position, passed set screw and set screws were all tightened. Pulse generator was then placed in antibiotic pouch followed then by being placed in the pocket, making sure the leads were lying flat beneath the device. Incision was closed in 3-layer fashion with 2-0 Vicryl interrupted suture followed by 3-0 Vicryl interrupted suture, followed by a 4-0 Monocryl running stitch and Dermabond was applied followed by Telfa and micropore dressing. EQUIPMENT: 1. Pulse generator is [employer] [place] XT DR LAMONTE Singh [id number], serial number [id number]. 2. The Tyrx pouch reference [id number], lot number [id number], expiration 12/02/2020. 3. Right atrial lead Medtronic 5076-52 cm, serial number [id number]. 4. Right ventricular lead, Medtronic 3830-69 cm, serial [id number]. INTRAOPERATIVE TESTIN. The AH was 58 milliseconds, HV was 63 milliseconds. 2. Right atrial lead: P waves were 3 millivolts, impedance 598 ohms, threshold 0.3 volts at 0.4 milliseconds. 3. Right ventricular lead: R waves 8.6 millivolts, impedance 779 ohms, threshold 0.5 volts at 0.4 milliseconds. FINAL MEASUREMENTS THROUGH THE DEVICE: 1. Right atrial lead: P waves 1.8 millivolts, impedance 551 ohms, threshold 0.5 volts at 0.4 milliseconds. 2. Right ventricular lead: R waves 9.8 millivolts, impedance 703 ohms, threshold 0.75 volts at 0.4 milliseconds. FINAL PARAMETERS: MVP-R 60/130, right atrial amplitude 3.5 volts, pulse width 0.4 milliseconds, sensitivity 0.3 millivolts. Right ventricular amplitude 3.5 volts, pulse width 0.4 milliseconds, sensitivity 1.2 millivolts. IMPRESSION: Successful implantation of a dual chamber rate responsive (left bundle) permanent pacemaker under fluoroscopic guidance along with peripheral venogram and intracardiac electrogram His bundle mapping. PLAN: Monitor patient overnight, 12-lead ECG, chest x-ray. She cannot lift the left elbow or left shoulder for 1 month. She is to keep the dressing on and dry until her wound check next week. We can restart her Eliquis and continue her on amiodarone. she cannot lift more than 10 pounds with the left arm for 2 weeks. I attest to the content of the Intraoperative Record and any orders documented therein. Any exceptions are noted below. EIMLYD
[2020-03-18] MEDS: MAGNESIUM OXIDE 400 MG TAB PO SCH (08:17)
[2020-03-18] MEDS: AMIODARONE 200 MG TAB PO SCH ×3 (08:17→16:49)
[2020-03-18] MEDS: APIXABAN 2.5 MG TAB PO SCH ×2 (08:17→21:41)
[2020-03-18] MEDS: PANTOprazole 40 MG TAB PO SCH (08:17)
[2020-03-18] MEDS: METOPROLOL TARTRATE 25 MG TAB PO SCH ×2 (08:17→21:40)
[2020-03-18] MEDS: LACTOBACILLUS ACIDOPHILUS 1 GM PACK PO SCH ×3 (08:17→16:49)
[2020-03-18] MEDS: POTASSIUM CHLORIDE CRTAB 20 MEQ TABCR PO SCH (08:18)
[2020-03-18] MEDS: POLYETHYLENE (MIRALAX) 17 GM PACK PO SCH (08:18)
[2020-03-18] MEDS: AMOXICILLIN/CLAVULANATE 875 MG TAB PO SCH ×2 (08:18→16:49)
[2020-03-18] MEDS: DOCUSATE SODIUM 100 MG CAP PO SCH ×2 (08:22→21:41)
[2020-03-18 09:56] LABS: BUN Creatinine Ratio 9.1 (10-20); Calcium 9.3 mg/dl (8.5-10.1); Creatinine Clr Calc Pharmacy 44.4 ml/min; Est GFR (African American) 80.5; Est GFR (Non-African American) 69.4; Magnesium 2.2 mg/dl (1.8-2.4); Potassium 4.2 mmol/L (3.5-5.1)
--- NOTE | 2020-03-18 11:30 | Cardiology Progress Note ---
Date of Service March 18, 2020 Assessment & Plan (1) Paroxysmal atrial fibrillation: (2) Tachycardia-bradycardia syndrome: (3) LBBB (left bundle branch block): (4) Pacemaker: Discontinue intravenous amiodarone. Continue oral amiodarone 400 mg 3 times daily until discharge. Dose will be reduced to 200 mg twice daily in the outpatient setting. Continue metoprolol 25 mg twice daily. Verapamil discontinued. Oral anticoagulation with Eliquis, 2.5 mg twice daily (adjusted for age, and body weight) recommended. Hold potassium supplementation today. Repeat basic metabolic panel in a.m. No edema or signs of volume overload currently. No indication for diuretic therapy. Admission and Anticipated Discharge Date Admission Date: March 11, 2020 Subjective Patient seen and examined at the bedside. No recurrent atrial fibrillation overnight. Patient feeling well from a cardiovascular perspective. No chest discomfort or heaviness. Denies lightheadedness, dizziness, syncope, or near syncope. Tolerating diet and medications. Review of Systems Review of Systems: All systems reviewed & are unremarkable except as noted in Subjective Physical Exam Constitutional: well nourished and + ill appearing; no acute distress Respiratory: normal respiratory effort; no respiratory distress, no labored breathing and no retractions Auscultation: no crackles, no rales, no rhonchi and no wheezes Cardiovascular: Rate/Rhythm: regular rate and regular rhythm Heart Sounds: normal S1 and normal S2; no murmur Vessels: radial pulses present; no JVD and no carotid bruit Gastrointestinal (Abdomen): Inspection/Auscultation: abdomen normal to inspection and normal bowel sounds; abdomen not distended Percussion/Palpation: abdomen soft; abdomen nontender, no guarding and abdomen not rigid Skin: no rashes, warm and dry Neurologic: CN's II-XI intact bilaterally and moves all extremities Motor/Sensory: no tremor Psychiatric: A+Ox3, euthymic affect Results & Data ([facility]) Vital Signs (Past 12 Hours) Vital Signs Temp Pulse Pulse Resp BP Pulse Ox 03/18/20 08:03 36.9 C 76 18 116/70 03/18/20 07:50 69 03/18/20 04:00 36.7 C 69 18 121/66 93
[2020-03-18] MEDS: AMIODARONE / D5W 360 MG/200 ML BAG IV SCH ×2 (12:31→21:44)
--- NOTE | 2020-03-18 13:41 | Hospitalist Progress Note ---
Date of Service March 18, 2020 Assessment & Plan (1) Abdominal pain: (1) Abdominal pain: Pt is 89 y/o F with PMH HTN, HLD, paroxysmal atrial fibrillation on Eliquis, LBBB, cerebral carotid artery aneurysm clipped in 1988, right lung CA s/p surgery presented to ER with c/o mid and lower abdominal pain x 1 day with nausea. ABDOMINAL PAIN SEVERE CONSTIPATION - total bili improved from 1.3 to 0.9 - CT abdomen: 1. There is mild to moderate intrahepatic biliary ductal dilatation, which has increased from yesterday. This is of indeterminant etiology and significance, and may be related to fasting state status post cholecystectomy. Correlate with clinical findings and serum bilirubin levels. 2. There is increasing bibasilar airspace consolidation as compared to yesterday. Correlate clinically for evidence of pneumonia/aspiration pneumonitis. 3. Small pleural effusions are new from yesterday. 4. Intralobular septal thickening is noted at the lung bases. Correlate clinically for evidence of congestive change/fluid overload. 5. Moderate to advanced colonic diverticulosis without CT evidence of acute diverticulitis. 6. There is postoperative change from previous sigmoid colon resection with colocolonic anastomosis. No bowel obstruction is seen. - MRCP was not done due to presence of intracranial/brain aneurysm clips Mesenteric and portal vein ultrasound demonstrated patent vessels - resolved with BMs GI consulted, recommend outpatient EGD and EUS ASPIRATION PNEUMONIA - afebrile, no leukocytosis blood cultures negative - completed Augmentin PO day 5/ RECENT UTI, E COLI - resolved - Urine culture: Corynebacterium A FIB IN RVR POSSIBLE TACHYBRADY SYNDROME -Status post pacemaker placement 03/16/2020 -transitioned from IV Amiodarone to PO Amiodarone 400mg po TID Eliquis continued - transitioned to Metoprolol tartrate 25 mg twice daily Verapamil held ACUTE ON CHRONIC DIASTOLIC CHF - resolved with IV Lasix HISTORY OF TIA -Eliquis HTN -Lisinopril on hold CODE STATUS: Full code DVT prophylaxis: Eliquis Disposition pending will need PT/OT evaluation lives with at home Admission and Anticipated Discharge Date Admission Date: March 11, 2020 Subjective ff up for tachy lizeth syndrome etc seen resting in bed, comfortable, sitting up not in distress, in good spirits states she feels improved today compared to yesterday no chest pain, palpitations, dizziness abdominal pain, nausea/vomiting resolved tolerated breakfast well no other symptoms Review of Systems Review of Systems: All systems reviewed & are unremarkable except as noted in Subjective Physical Exam Physical Exam: General- oriented x 3, not in distress, speaks in sentences with no effort or accessory muscle use Eyes- anicteric Neck- no JVD Lungs- clear breath sounds bilaterally, no rales/wheezes Heart- normal rate, regular rhythm; no murmurs pacemaker site: No hematoma, edema, bleeding, discharge Abdomen- normal bowel sounds, nondistended, soft, nontender Extremities- no pretibial edema, no calf tenderness Neuro- alert, oriented x 3; no gross focal neurologic deficits Skin- warm & dry Results & Data Results & Data ([facility]) Vital Signs (Past 12 Hours) Vital Signs Temp Pulse Pulse Resp BP Pulse Ox 03/18/20 11:33 36.8 C 82 20 110/64 99 03/18/20 08:03 36.9 C 76 18 116/70 03/18/20 07:50 69 03/18/20 04:00 36.7 C 69 18 121/66 93 Laboratory Results Laboratory Results - last 24 hr 03/17/20 03/18/20 19:12 09:10 Sodium 137 Potassium 4.2 D Chloride 104 Carbon Dioxide 27 Anion Gap 6.0 BUN 7 D Creatinine 0.77 Est Cr Clr Drug Dosing 44.4 Est GFR ( Amer) 80.5 Est GFR (Non-Af Amer) 69.4 BUN/Creatinine Ratio 9.1 L Glucose 138 H Calcium 9.3 Magnesium 2.2 Stl C. diff Tox B Gene Negative Cdiff Gene
[2020-03-18] MEDS: ATORVASTATIN 20 MG TAB PO SCH (21:41)
[2020-03-19] MEDS ORDERED: MELATONIN 3 MG TAB PO PRN (00:48)
[2020-03-19] MEDS: APIXABAN 2.5 MG TAB PO SCH ×2 (07:39→19:53)
[2020-03-19] MEDS: METOPROLOL TARTRATE 25 MG TAB PO SCH ×2 (07:39→19:53)
[2020-03-19] MEDS: AMIODARONE 200 MG TAB PO SCH ×3 (07:40→16:47)
[2020-03-19] MEDS: PANTOprazole 40 MG TAB PO SCH (07:40)
[2020-03-19] MEDS: AMOXICILLIN/CLAVULANATE 875 MG TAB PO SCH (07:40)
[2020-03-19] MEDS: MAGNESIUM OXIDE 400 MG TAB PO SCH (07:40)
[2020-03-19] MEDS: LACTOBACILLUS ACIDOPHILUS 1 GM PACK PO SCH ×3 (07:41→16:47)
[2020-03-19] MEDS: DOCUSATE SODIUM 100 MG CAP PO SCH ×2 (07:41→19:54)
[2020-03-19] MEDS: POLYETHYLENE (MIRALAX) 17 GM PACK PO SCH (07:42)
--- NOTE | 2020-03-19 10:11 | Cardiology Progress Note ---
Date of Service March 19, 2020 Assessment & Plan (1) Paroxysmal atrial fibrillation: (2) Tachycardia-bradycardia syndrome: (3) LBBB (left bundle branch block): (4) Pacemaker: Continue oral amiodarone 400 mg 3 times daily until discharge. Reduce dose to 200 mg twice daily in the outpatient setting. Continue metoprolol 25 mg twice daily. Verapamil discontinued. Oral anticoagulation with Eliquis, 2.5 mg twice daily (adjusted for age, and body weight). Repeat BMP today. Potassium supplementation will remain on hold. Patient appears compensated/euvolemic. No indication for diuretic therapy. Clinical status/ recommendations discussed with via telephone. He is unable to transport patient home today due to inclement weather. All questions answered to his satisfaction. Admission and Anticipated Discharge Date Admission Date: March 11, 2020 Subjective Patient seen and examined at the bedside. Feeling well from a cardiovascular perspective today. Denies chest pain, palpitations, or shortness of breath. Denies lightheadedness, dizziness, syncope or near syncope. No recurrent atrial fibrillation on telemetry. Telemetry demonstrates sinus rhythm with an underlying bundle branch block. She offers no complaints at this time. Reluctant to return home today due to inclement weather. Review of Systems Review of Systems: All systems reviewed & are unremarkable except as noted in Subjective Physical Exam Constitutional: well nourished and + ill appearing; no acute distress Respiratory: normal respiratory effort; no respiratory distress, no labored breathing and no retractions Auscultation: no crackles, no rales, no rhonchi and no wheezes Cardiovascular: Rate/Rhythm: regular rate and regular rhythm Heart Sounds: normal S1, normal S2 and + murmur (2/6 low pitched, systolic ejection murmur heard best at the right second in) Vessels: radial pulses present; no JVD and no carotid bruit Gastrointestinal (Abdomen): Inspection/Auscultation: abdomen normal to inspection and normal bowel sounds; abdomen not distended Percussion/Palpation: abdomen soft; abdomen nontender, no guarding and abdomen not rigid Skin: no rashes, warm and dry Neurologic: CN's II-XI intact bilaterally and moves all extremities Mot or/Sensory: no tremor Psychiatric: A+Ox3, euthymic affect Results & Data ([facility]) Vital Signs (Past 12 Hours) Vital Signs Temp Pulse Pulse Resp BP Pulse Ox 03/19/20 08:00 65 03/19/20 05:00 36.6 C 68 17 105/62 93 03/19/20 01:32 72 03/18/20 23:18 36.8 C 71 18 116/57 L 94
[2020-03-19 10:43] LABS: BUN Creatinine Ratio 12.8 (10-20); Calcium 9.3 mg/dl (8.5-10.1); Creatinine Clr Calc Pharmacy 43.9 ml/min; Est GFR (African American) 79.2; Est GFR (Non-African American) 68.4; Potassium 4.1 mmol/L (3.5-5.1)
--- NOTE | 2020-03-19 14:23 | Hospitalist Progress Note ---
Date of Service March 19, 2020 Assessment & Plan (1) Abdominal pain: (1) Abdominal pain: Pt is 89 y/o F with PMH HTN, HLD, paroxysmal atrial fibrillation on Eliquis, LBBB, cerebral carotid artery aneurysm clipped in 1988, right lung CA s/p surgery presented to ER with c/o mid and lower abdominal pain x 1 day with nausea. ABDOMINAL PAIN SEVERE CONSTIPATION - total bili improved from 1.3 to 0.9 - CT abdomen: 1. There is mild to moderate intrahepatic biliary ductal dilatation, which has increased from yesterday. This is of indeterminant etiology and significance, and may be related to fasting state status post cholecystectomy. Correlate with clinical findings and serum bilirubin levels. 2. There is increasing bibasilar airspace consolidation as compared to yesterday. Correlate clinically for evidence of pneumonia/aspiration pneumonitis. 3. Small pleural effusions are new from yesterday. 4. Intralobular septal thickening is noted at the lung bases. Correlate clinically for evidence of congestive change/fluid overload. 5. Moderate to advanced colonic diverticulosis without CT evidence of acute diverticulitis. 6. There is postoperative change from previous sigmoid colon resection with colocolonic anastomosis. No bowel obstruction is seen. - MRCP was not done due to presence of intracranial/brain aneurysm clips Mesenteric and portal vein ultrasound demonstrated patent vessels - resolved with BMs GI consulted, recommend outpatient EGD and EUS ASPIRATION PNEUMONIA - afebrile, no leukocytosis blood cultures negative - completed Augmentin PO day 5/ RECENT UTI, E COLI - resolved - Urine culture: Corynebacterium A FIB IN RVR POSSIBLE TACHYBRADY SYNDROME -Status post pacemaker placement 03/16/2020 -transitioned from IV Amiodarone to PO Amiodarone 400mg po TID Eliquis continued - transitioned to Metoprolol tartrate 25 mg twice daily Verapamil held -outpatient [facility] follow up ACUTE ON CHRONIC DIASTOLIC CHF - resolved with IV Lasix HISTORY OF TIA -Eliquis HTN -Lisinopril on hold CODE STATUS: Full code DVT prophylaxis: Eliquis Disposition pending PT/OT evaluation: home with home health services lives with at home anticipate d/c home tomorrow Admission and Anticipated Discharge Date Admission Date: March 11, 2020 Subjective ff up for tachy lizeth syndrome, etc seen resting in bed, comfortable sitting in chair, in good spirits no arrhythmia overnight states she feels fine overall no headache, dizziness, chest pain, palpitations no abdominal pain , nausea, tolerated diet well had 1 soft BM no other symptoms Review of Systems Review of Systems: All systems reviewed & are unremarkable except as noted in Subjective Physical Exam Physical Exam: General- oriented x 3, not in distress, speaks in sentences with no effort or accessory muscle use Eyes- anicteric Neck- no JVD Lungs- clear BS BL Heart- normal rate, regular rhythm; no murmurs pacemaker site: no bleeding/discharge, hematoma, edema Abdomen- normal bowel sounds, nondistended, soft, nontender Extremities- no pretibial edema, no calf tenderness Neuro- alert, oriented x 3; no gross focal neurologic deficits Skin- warm & dry Results & Data Results & Data ([facility]) Vital Signs (Past 12 Hours) Vital Signs Temp Pulse Pulse Resp BP BP Pulse Ox 03/19/20 11:46 36.7 C 68 20 121/61 94 03/19/20 08:00 65 03/19/20 05:00 36.6 C 68 17 105/62 93 Laboratory Results Laboratory Results - last 24 hr 03/19/20 10:17 Sodium 136 Potassium 4.1 Chloride 102 Carbon Dioxide 27 Anion Gap 6.0 BUN 10 Creatinine 0.78 Est Cr Clr Drug Dosing 43.9 Est GFR ( Amer) 79.2 Est GFR (Non-Af Amer) 68.4 BUN/Creatinine Ratio 12.8 Glucose 133 H Calcium 9.3
--- NOTE | 2020-03-19 17:29 | XRay Report ---
KUB HISTORY: Acute nausea with generalized abdominal pain nausea, r/o obstruction COMPARISON: Chest radiograph 03/16/2020, CT abdomen and pelvis 03/11/2020 FINDINGS: Cardiomegaly with left subclavian pacer. Probable trace pleural effusions. No acute fractur e. Nonobstructive bowel gas pattern. No pneumatosis or pneumoperitoneum. No urolith. IMPRESSION: Nonobstructive bowel gas pattern. ACT 112: Negative or not required by law. The above report was generated using voice recognition software. It may contain grammatical, syntax o r spelling errors. Electronically signed by: Bryon Schrader M.D. 03/19/2020 5:27 PM
[2020-03-19] MEDS: ATORVASTATIN 20 MG TAB PO SCH (19:53)
[2020-03-20] MEDS: AMIODARONE 200 MG TAB PO SCH ×2 (08:16→16:39)
[2020-03-20] MEDS: LACTOBACILLUS ACIDOPHILUS 1 GM PACK PO SCH ×3 (08:16→16:39)
[2020-03-20] MEDS: DOCUSATE SODIUM 100 MG CAP PO SCH ×2 (08:17→21:06)
[2020-03-20] MEDS: METOPROLOL TARTRATE 25 MG TAB PO SCH ×2 (08:17→21:02)
[2020-03-20] MEDS: APIXABAN 2.5 MG TAB PO SCH ×2 (08:17→21:02)
[2020-03-20] MEDS: MAGNESIUM OXIDE 400 MG TAB PO SCH (08:18)
[2020-03-20] MEDS: PANTOprazole 40 MG TAB PO SCH (08:18)
[2020-03-20] MEDS: POLYETHYLENE (MIRALAX) 17 GM PACK PO SCH (08:18)
--- NOTE | 2020-03-20 09:26 | Gastroenterology Progress Note ---
Date of Service March 20, 2020 Assessment & Plan (1) Acute upper abdominal pain: This is an 89 y/o female with h/o PAF on Eliquis, admitted with abd pain, and CT showed ? pneumonia, amor dil s/p donald and mild constipation. She had mildly elevated Tbili but otherwise LFTS, lipase, H&H WNL. Tbili has normalized. She is not able to have MRCP due presence of brain aneurysm clips. Mesenteric and portal vein US demonstrate patent vessels. Her abd pain and constipation has resolved, but she notes intermittent episode of nausea w/o vomiting not associated with PO intake. Appears she has last used antiemetics 03/17. Encouraged she ask for this or start as scheduled medication. She tells me she is exhausted by testing, wants to go home and is not sure if she wants to schedule OP EGD/EUS - GERD diet as tolerated - Bowel regimen w/ colace 100 mg twice daily, miralax 1 capful daily if needed - Continue Pantoprazole 40 mg daily - Start Carafate slurry BID x 1 month - Start scheduled gas-ex - Encouraged OP EGD/EUS Thank you for allowing us to participate in the care of this patient. Please call with any acute changes, questions or concerns. Please see addendum below with additional recommendation from my supervising physician. Attg add: I interviewed and examined pt, reviewed chart and labs. Pt cont to have intermittent nausea, but no new complaints. Rec plans as above. Admission and Anticipated Discharge Date Admission Date: March 11, 2020 Subjective GI asked to evaluate for ongoing nausea Pt was seen and evaluated, chart reviewed. Just finished breakfast Notes intermittent issues with nausea Not daily No pattern identified Not associated with PO intake No associated abd pain No vomiting Does get some bloating/gas with the nausea No change in BM. Review of Systems Constitutional: no fever, no chills and no fatigue Respiratory: no cough and no dyspnea Cardiovascular: no chest pain Gastrointestinal: + nausea; no abdominal pain, no change in bowel habits, no diarrhea/loose stools, no blood in stools and no melena Physical Exam Constitutional: well developed, well nourished and + ill appearing (chronically ); no acute distress Neck: trachea midline Gastrointestinal (Abdomen): Percussion/Palpation: abdomen soft; abdomen nontender, no guarding and abdomen not rigid Skin: no rashes, warm and dry Results & Data ([facility]) Vital Signs (Past 12 Hours) Vital Signs Temp Pulse Pulse Resp BP Pulse Ox 03/20/20 08:00 37.0 C 77 18 145/63 H 100 03/20/20 07:00 69 03/20/20 03:33 36.8 C 71 94 H 119/63 94 03/20/20 00:00 36.9 C 69 18 113/66 94 Laboratory Results 03/19/20 Range/Units 10:17 Sodium 136 (136-145) mmol/L Potassium 4.1 (3.5-5.1) mmol/L Chloride 102 (98-107) mmol/L Carbon Dioxide 27 (21-32) mmol/L Anion Gap 6.0 (3-11) BUN 10 (7-18) mg/dl Creatinine 0.78 (0.6-1.2) mg/dl Est Cr Clr Drug Dosing 43.9 ml/min Est GFR ( Amer) 79.2 Est GFR (Non-Af Amer) 68.4 BUN/Creatinine Ratio 12.8 (10-20) Glucose 133 H (70-99) mg/dl Calcium 9.3 (8.5-10.1) mg/dl
--- NOTE | 2020-03-20 12:12 | Cardiology Progress Note ---
Date of Service March 20, 2020 Assessment & Plan (1) Paroxysmal atrial fibrillation: (2) Tachycardia-bradycardia syndrome: (3) LBBB (left bundle branch block): (4) Pacemaker: Reduce amiodarone to 200 mg twice daily. Continue metoprolol 25 mg twice daily. Verapamil discontinued during hospitalization. Oral anticoagulation with reduced dose of Eliquis, 2.5 mg twice daily. Hold Eliquis 48 hours prior to EGD. Patient appears compensated/euvolemic. No indication for diuretic therapy. Outpatient cardiology follow-up as scheduled. Device clinic follow-up in 1 week for wound check and interrogation. Post pacemaker insertion activity restrictions reviewed. All questions answered to patient's satisfaction. Admission and Anticipated Discharge Date Admission Date: March 11, 2020 Subjective Patient seen and examined the bedside. Continues to report issues with intermittent abdominal discomfort and nausea. Appetite remains poor. Evaluated by gastroenterology. Considering EGD. No vomiting, diarrhea, or constipation. Denies chest pain or palpitations. No recurrent atrial fibrillation over the past 48 hours. Tolerating medications listed below. Offers no other concerns/complaints at this time. Review of Systems Review of Systems: All systems reviewed & are unremarkable except as noted in Subjective Physical Exam Constitutional: well nourished and + ill appearing; no acute distress Respiratory: normal respiratory effort; no respiratory distress, no labored breathing and no retractions Auscultation: no crackles, no rales, no rhonchi and no wheezes Cardiovascular: Rate/Rhythm: regular rate and regular rhythm Heart Sounds: normal S1, normal S2 and + murmur (2/6 low pitched, systolic ejection murmur heard best at the right second in) Vessels: radial pulses present; no JVD and no carotid bruit Gastrointestinal (Abdomen): Inspection/Auscultation: abdomen normal to inspection and normal bowel sounds; abdomen not distended Percussion/Palpation: abdomen soft; abdomen nontender, no guarding and abdomen not rigid Skin: no rashes, warm and dry Neurologic: CN's II-XI intact bilaterally and moves all extremities Motor/Sensory: no tremor Psychiatric: A+Ox3, euthymic affect Results & Data ([facility]) Vital Signs (Past 12 Hours) Vital Signs Temp Pulse Pulse Resp BP Pulse Ox 03/20/20 11:58 37.2 C 77 16 121/63 95 02/02/21 08:00 37.0 C 77 18 145/63 H 100 03/20/20 07:00 69 03/20/20 03:33 36.8 C 71 94 H 119/63 94
[2020-03-20] MEDS: PROMETHAZINE HCL 12.5 MG in SODIUM CHLORIDE 0.9% 50 ML IV PRN (13:48)
--- NOTE | 2020-03-20 15:56 | Hospitalist Progress Note ---
Date of Service March 20, 2020 Assessment & Plan (1) Abdominal pain: (1) Abdominal pain: Pt is 89 y/o F with PMH HTN, HLD, paroxysmal atrial fibrillation on Eliquis, LBBB, cerebral carotid artery aneurysm clipped in 1988, right lung CA s/p surgery presented to ER with c/o mid and lower abdominal pain x 1 day with nausea. ABDOMINAL PAIN SEVERE CONSTIPATION - total bili improved from 1.3 to 0.9 - CT abdomen: 1. There is mild to moderate intrahepatic biliary ductal dilatation, which has increased from yesterday. This is of indeterminant etiology and significance, and may be related to fasting state status post cholecystectomy. Correlate with clinical findings and serum bilirubin levels. 2. There is increasing bibasilar airspace consolidation as compared to yesterday. Correlate clinically for evidence of pneumonia/aspiration pneumonitis. 3. Small pleural effusions are new from yesterday. 4. Intralobular septal thickening is noted at the lung bases. Correlate clinically for evidence of congestive change/fluid overload. 5. Moderate to advanced colonic diverticulosis without CT evidence of acute diverticulitis. 6. There is postoperative change from previous sigmoid colon resection with colocolonic anastomosis. No bowel obstruction is seen. - MRCP was not done due to presence of intracranial/brain aneurysm clips Mesenteric and portal vein ultrasound demonstrated patent vessels - resolved with BMs daily Colace, Miralax, Protonix - patient reports intermittent nausea likely from recent antibiotic courses Probiotics ordered GI recommends Carafate BID x 1 month, Gas X daily and outpatient EGD and EUS ASPIRATION PNEUMONIA - afebrile, no leukocytosis blood cultures negative - completed Augmentin PO day 5/5 RECENT UTI, E COLI - resolved - Urine culture: Corynebacterium A FIB IN RVR POSSIBLE TACHYBRADY SYNDROME -Status post pacemaker placement 03/16/2020 -transitioned from IV Amiodarone to PO Amiodarone 400mg po TID Eliquis continued - transitioned to Metoprolol tartrate 25 mg twice daily Verapamil discontinued -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 ACUTE ON CHRONIC DIASTOLIC CHF - resolved with IV Lasix HISTORY OF TIA -Eliquis HTN -Lisinopril stopped CODE STATUS: Full code DVT prophylaxis: Eliquis Disposition PT/OT evaluation: home with home health services lives with at home anticipate d/c home tomorrow ff up with PCP in 1 week ff up with Commercial Sheet Metal [employer]man as scheduled outpatient EGD and Colonoscopy Admission and Anticipated Discharge Date Admission Date: March 11, 2020 Subjective ff up for tachy lizeth syndrome seen resting in bedside chair, comfortable states she feels fine overall except for mild nausea (+) BMs tolerated breakfast with mild nausea no chest pain, palpitations, dizziness no other symptoms Review of Systems Review of Systems: All systems reviewed & are unremarkable except as noted in Subjective Physical Exam Physical Exam: General- oriented x 3, not in distress, speaks in sentences with no effort or accessory muscle use Eyes- anicteric Neck- no JVD Lungs- clear BS BL Heart- normal rate, regular rhythm; no murmurs Abdomen- normal bowel sounds, nondistended, soft, nontender Extremities- no pretibial edema, no calf tenderness Neuro- alert, oriented x 3; no gross focal neurologic deficits Skin- warm & dry Results & Data Results & Data ([facility]) Vital Signs (Past 12 Hours) Vital Signs Temp Pulse Pulse Resp BP Pulse Ox 03/20/20 15:18 37.0 C 68 18 124/54 L 93 03/20/20 11:58 37.2 C 77 16 121/63 95 03/20/20 08:00 37.0 C 77 18 145/63 H 100 03/20/20 07:00 69
[2020-03-20] MEDS: ATORVASTATIN 20 MG TAB PO SCH (21:02)
[2020-03-20] MEDS: SUCRALFATE 1 GM/10 ML UDC PO SCH (21:02)
[2020-03-21] MEDS: MECLIZINE HCL 25 MG TAB PO PRN ×2 (06:49→14:42)
[2020-03-21] MEDS: PANTOprazole 40 MG TAB PO SCH (08:06)
[2020-03-21] MEDS: AMIODARONE 200 MG TAB PO SCH (08:06)
[2020-03-21] MEDS: MAGNESIUM OXIDE 400 MG TAB PO SCH (08:06)
[2020-03-21] MEDS: LACTOBACILLUS ACIDOPHILUS 1 GM PACK PO SCH ×2 (08:07→12:36)
[2020-03-21] MEDS: APIXABAN 2.5 MG TAB PO SCH (08:07)
[2020-03-21] MEDS: METOPROLOL TARTRATE 25 MG TAB PO SCH (08:08)
[2020-03-21] MEDS: SUCRALFATE 1 GM/10 ML UDC PO SCH (08:08)
[2020-03-21] MEDS: POLYETHYLENE (MIRALAX) 17 GM PACK PO SCH (08:09)
[2020-03-21] MEDS: DOCUSATE SODIUM 100 MG CAP PO SCH (08:09)
[2020-03-21] MEDS ORDERED: SIMETHICONE 80 MG CHEW PO SCH (09:00)
--- NOTE | 2020-03-21 11:35 | Hospitalist Progress Note ---
Date of Service March 21, 2020 Assessment & Plan (1) Abdominal pain: (1) Abdominal pain: Pt is 89 y/o F with PMH HTN, HLD, paroxysmal atrial fibrillation on Eliquis, LBBB, cerebral carotid artery aneurysm clipped in 1988, right lung CA s/p surgery presented to ER with c/o mid and lower abdominal pain x 1 day with nausea. ABDOMINAL PAIN SEVERE CONSTIPATION - resolved with BMs -daily Colace, Miralax, Protonix Persistent nausea - patient reports intermittent nausea -likely from recent antibiotic courses -Probiotics ordered -GI recommends Carafate BID x 1 month, Gas X daily -and outpatient EGD and EUS - CT abdomen: 1. There is mild to moderate intrahepatic biliary ductal dilatation, which has increased from yesterday. This is of indeterminant etiology and significance, and may be related to fasting state status post cholecystectomy. Correlate with clinical findings and serum bilirubin levels. 2. There is increasing bibasilar airspace consolidation as compared to yesterday. Correlate clinically for evidence of pneumonia/aspiration pneumonitis. 3. Small pleural effusions are new from yesterday. 4. Intralobular septal thickening is noted at the lung bases. Correlate clinically for evidence of congestive change/fluid overload. 5. Moderate to advanced colonic diverticulosis without CT evidence of acute diverticulitis. 6. There is postoperative change from previous sigmoid colon resection with colocolonic anastomosis. No bowel obstruction is seen. - MRCP was not done due to presence of intracranial/brain aneurysm clips Mesenteric and portal vein ultrasound demonstrated patent vessels ASPIRATION PNEUMONIA - afebrile, no leukocytosis -blood cultures negative - completed Augmentin PO day 5/5 -No signs and/or symptoms of pneumonia RECENT UTI, E COLI - resolved - Urine culture: Corynebacterium A FIB IN RVR POSSIBLE TACHYBRADY SYNDROME -Status post pacemaker placement 03/16/2020 -transitioned from IV Amiodarone to PO Amiodarone 400mg po TID -Eliquis continued - transitioned to Metoprolol tartrate 25 mg twice daily- Verapamil discontinued -outpatient Dispute Resolution Specialist follow up ACUTE ON CHRONIC DIASTOLIC CHF - resolved with IV Lasix HISTORY OF TIA -Eliquis HTN -Lisinopril stopped CODE STATUS: Full code DVT prophylaxis: Eliquis Disposition PT/OT evaluation: home with home health services lives with at home anticipate d/c home today ff up with PCP in 1 week ff up with Dispute Resolution Specialist as scheduled outpatient EGD and Colonoscopy-as per GI Admission and Anticipated Discharge Date Admission Date: March 11, 2020 Subjective 03/21/2020 The patient was seen and examined in telemetry unit She is an 89 y/o F with PMH HTN, HLD, paroxysmal atrial fibrillation on Eliquis, LBBB, cerebral carotid artery aneurysm clipped in 1988, right lung CA s/p surgery presented to ER with c/o mid and lower abdominal pain x 1 day with nausea. No vomiting or fever. Noted to have tachybradycardia syndrome and is now status post pacemaker placement Complains to have generalized weakness with ongoing epigastric discomfort and with nausea but no vomiting Denies any cardiac symptoms and wants to go home Review of Systems Review of Systems: All systems reviewed and are unremarkable except as noted below Gastrointestinal: + nausea; no bloating, no vomiting and no diarrhea/loose stools Neurologic: + generalized weakness Physical Exam Physical Exam: Sitting on a chair without any acute distress Constitutional: + ill appearing and average body habitus Eyes: PERRL, conjunctivae normal, anicteric sclerae ENMT: external ear and nose normal, oropharynx normal Neck: trachea midline, no thyromegaly Respiratory: no respiratory distress Auscultation: lungs clear to auscultation bilaterally Cardiovascular: Rate/Rhythm: regular rate and regular rhythm Heart Sounds: no murmur Extremities: no edema Gastrointestinal (Abdomen): Inspection/Auscultation: normal bowel sounds; abdomen not distended Percussion/Palpation: abdomen nontender Musculoskeletal: No acute arthritis involving any joint Neurologic: Alert, awake and oriented x3. Generally weak no focal sensory and motor deficit appreciated Psychiatric: A+Ox3, euthymic affect Lymphatic: no cervical or axillary lymphadenopathy Results & Data Results & Data ([facility]) Vital Signs (Past 12 Hours) Vital Signs Temp Pulse Pulse Resp BP BP Pulse Ox 03/21/20 08:00 36.4 C L 70 71 18 122/69 94 03/21/20 05:01 36.6 C 64 18 119/66 91 03/20/20 23:38 36.6 C 67 16 116/63 95 Medications Administered Current Inpatient Medications Acetaminophen (Acetaminophen 325 Mg Tab) 650 mg PO Q4H PRN PRN Reason: Pain or Fever Stop: 04/09/20 14:30 Last Admin: 03/16/20 19:41 Dose: 650 mg Documented by: Al Hydrox/Mg Hydrox/Simethicone (Aluminum/Magnesium Susp 30 Ml Udc) 30 ml PO Q6H PRN PRN Reason: Dyspepsia Stop: 04/16/20 16:58 Amiodarone HCl (Amiodarone 200 Mg Tab) 200 mg PO BIDM [facility] Stop: 04/19/20 16:59 Last Admin: 03/21/20 08:06 Dose: 200 mg Documented by: Apixaban (Apixaban 2.5 Mg Tab) 2.5 mg PO BID [facility] Stop: 04/15/20 20:59 Last Admin: 03/21/20 08:07 Dose: 2.5 mg Documented by: Atorvastatin Calcium (Atorvastatin 20 Mg Tab) 20 mg PO HS [facility] Stop: 04/09/20 20:59 Last Admin: 03/20/20 21:02 Dose: 20 mg Documented by: Docusate Sodium (Docusate Sodium 100 Mg Cap) 100 mg PO BID [facility] Stop: 04/12/20 20:59 Last Admin: 03/21/20 08:09 Dose: Not Given Documented by: Ondansetron HCl 6 mg/ Dextrose 53 mls @ 200 mls/hr IV Q6H PRN PRN Reason: Nausea And Vomiting Stop: 04/10/20 10:41 Last Infusion: 03/17/20 17:32 Dose: Infused Documented by: Promethazine HCl 12.5 mg/ (Sodium Chloride) 50.5 mls @ 202 mls/hr IV Q6H PRN PRN Reason: Nausea And Vomiting Stop: 04/10/20 10:42 Last Infusion: 03/20/20 14:36 Dose: Infused Documented by: Lactobacillus Acidophilus (Lactobacillus Acidophilus 1 Gm Pack) 1 gm PO TIDM [facility] Stop: 04/11/20 16:59 Last Admin: 03/21/20 08:07 Dose: 1 gm Documented by: Levalbuterol HCl (Levalbuterol Hcl 0.63 Mg/3 Ml Neb) 0.63 mg NEB Q4H PRN PRN Reason: Shortness Of Breath Or Wheezing Stop: 04/11/20 21:59 Last Admin: 03/12/20 22:14 Dose: 0.63 mg Documented by: Lisinopril (Lisinopril 5 Mg Tab) 5 mg PO QAM [facility] Stop: 04/09/20 14:30 Last Admin: 03/13/20 09:57 Dose: 5 mg Documented by: Magnesium Oxide (Magnesium Oxide 400 Mg Tab) 400 mg PO QAM [facility] Stop: 04/10/20 08:59 Last Admin: 03/21/20 08:06 Dose: 400 mg Documented by: Meclizine HCl (Meclizine Hcl 25 Mg Tab) 25 mg PO Q8H PRN PRN Reason: Nausea And Vomiting Stop: 04/09/20 14:30 Last Admin: 03/21/20 06:49 Dose: 25 mg Documented by: Melatonin (Melatonin 3 Mg Tab) 3 mg PO HS PRN PRN Reason: Sleep Stop: 04/18/20 00:47 Last Admin: 03/19/20 01:22 Dose: 3 mg Documented by: Metoprolol Tartrate (Metoprolol Tartrate 25 Mg Tab) 25 mg PO BID [facility] Stop: 04/15/20 10:59 Last Admin: 03/21/20 08:08 Dose: 25 mg Documented by: Miscellaneous (No Heparin Or Lmwh ) 1 ea N/A UD PRN PRN Reason: NOTIFICATION Stop: 04/15/20 10:04 Pantoprazole Sodium (Pantoprazole 40 Mg Tab) [facility] Stop: 04/11/20 08:59 Last Admin: 03/21/20 08:06 Dose: 40 mg Documented by: Polyethylene Glycol (Polyethylene (Miralax) 17 Gm Pack) 17 gm PO DAILY [facility] Stop: 04/13/20 08:59 Last Admin: 03/21/20 08:09 Dose: Not Given Documented by: Simethicone (Simethicone 80 Mg Chew) 80 mg PO DAILY [facility] Stop: 04/20/20 08:59 Last Admin: 03/21/20 08:07 Dose: 80 mg Documented by: Sucralfate (Sucralfate 1 Gm/10 Ml Udc) 1 gm PO BID [facility] Stop: 04/19/20 20:59 Last Admin: 03/21/20 08:08 Dose: 1 gm Documented by: Tramadol HCl (Tramadol Hcl 50 Mg Tablet) 25 - 50 mg PO Q4H PRN PRN Reason: Pain Stop: 04/15/20 21:09 Last Admin: 03/17/20 03:28 Dose: 50 mg Documented by:
--- NOTE | 2020-03-21 13:31 | Cardiology Progress Note ---
Date of Service March 21, 2020 Assessment & Plan (1) Paroxysmal atrial fibrillation: (2) Tachycardia-bradycardia syndrome: (3) LBBB (left bundle branch block): (4) Pacemaker: Continue amiodarone 200 mg twice daily and metoprolol 25 mg twice daily. Verapamil discontinued during hospitalization. Oral anticoagulation with reduced dose of Eliquis, 2.5 mg twice daily. Hold Eliquis 48 hours prior to EGD and outpatient setting. Patient appears compensated/euvolemic. No indication for diuretic therapy. Outpatient cardiology follow-up as scheduled 04/11/[address] Bay. Device clinic/Wound check in 1 week. Post pacemaker insertion activity restrictions reviewed. All questions answered to patient's satisfaction. Admission and Anticipated Discharge Date Admission Date: March 11, 2020 Subjective Patient seen and examined the bedside. Denies chest pain or palpitations. Abdominal discomfort unchanged. No nausea or vomiting. Appetite remains poor. Denies constipation, diarrhea, melena, or hematochezia. Telemetry demonstrates sinus rhythm. Offers no other concerns/complaints today. Review of Systems Review of Systems: All systems reviewed & are unremarkable except as noted in Subjective Physical Exam Constitutional: well nourished and + ill appearing; no acute distress Respiratory: normal respiratory effort; no respiratory distress, no labored breathing and no retractions Auscultation: no crackles, no rales, no rhonchi and no wheezes Cardiovascular: Rate/Rhythm: regular rate and regular rhythm Heart Sounds: normal S1, normal S2 and + murmur (2/6 low pitched, systolic ejection murmur heard best at the right second in) Vessels: radial pulses present; no JVD and no carotid bruit Gastrointestinal (Abdomen): Inspection/Auscultation: abdomen normal to inspection and normal bowel sounds; abdomen not distended Percussion/Palpation: abdomen soft; abdomen nontender, no guarding and abdomen not rigid Skin: no rashes, warm and dry Neurologic: CN's II-XI intact bilaterally and moves all extremities Motor/Sensory: no tremor Psychiatric: A+Ox3, euthymic affect Results & Data ([facility]) Vital Signs (Past 12 Hours) Vital Signs Temp Pulse Pulse Resp BP BP Pulse Ox 03/21/20 11:44 36.6 C 62 18 116/66 95 03/21/20 08:00 36.4 C L 70 71 18 122/69 94 03/21/20 05:01 36.6 C 64 18 119/66 91
--- NOTE | 2020-03-22 08:42 | Discharge Summary ---
Date of Service March 22, 2020 Admission HPI Per Admitting Provider Pt is 89 y/o F with PMH HTN, HLD, paroxysmal atrial fibrillation on Eliquis, LBBB, cerebral carotid artery aneurysm clipped in 1988, right lung CA s/p surgery presented to ER with c/o Abdominal pain x 1 day. Pt with Recent hospitalization 02/29/20 - 03/02/20 for syncope and UTI. Was treated with Rocephin and d/c on cefdinir. Outpatient note reports PCP prescribed Macrobid also on 03/02/20. (Called pt's pharmacy and she picked up both prescriptions on 03/03/20). Pt states unsure what antibiotic she was taking. She finished antibiotic yesterday. ZIO patch in placed 03/06/20. Had cardiology f/u 03/09/20 and has upcoming EP appointment for suspected tachybrady syndrome. Pt states yesterday afternoon started with abdominal pain across middle of abdomen. Denies back or flank pain. C/O decreased appetite and nausea no vomiting. Has not been eating or drinking since yesterday afternoon. Denies any current urinary symptoms. Reports feels cold. Reports feels like has been taking decreased breaths since abdominal pain started yesterday. Feels was related to the abdominal pain. SOB after CT scan today in ER improved after a breathing treatment. Has chronic constipation feels at her baseline. States has mild cough intermittently at baseline, denies any increased cough. Feels generalized weakness today. Had Eliquis, did not have other morning meds today. Denies diaphoresis, hematemesis, melena, hematochezia, FRANCO, dizziness, syncope, vision changes, neck pain, CP, palpitations, sore throat, rhinorrhea, extremity weakness, extremity edema, rashes. Admission Exam Per Admitting Provider Physical Exam: General: no distress, WDWN Head: normocephalic, atraumatic Eyes: conjunctiva non-injected, anicteric ENT: normal inspection external ears, nose, mucous membranes moist Neck: supple, trachea midline Lungs: no respiratory distress, diminished bases, poor inspiratory effort by pt CV: RRR, no murmur, no pretibial edema Abd: normal BS, soft, +tenderness to palpation periumbilical, RLQ, LLQ, no CVA tenderness to palpation Ext: no cyanosis, no calf tenderness Neuro: A&O x 3, no focal deficits noted, normal affect Skin: warm, dry Principal Diagnosis Persistent nausea with abdominal pain, aspiration pneumonia, paroxysmal atrial fibrillation, tachybradycardia syndrome status post pacemaker, diastolic CHF Discharge Exam Constitutional + ill appearing and average body habitus Eyes PERRL, conjunctivae normal, anicteric sclerae ENMT external ear and nose normal, oropharynx normal Neck trachea midline, no thyromegaly Respiratory no respiratory distress Auscultation: lungs clear to auscultation bilaterally Cardiovascular Rate/Rhythm: regular rate and regular rhythm Heart Sounds: no murmur Extremities: no edema Gastrointestinal (Abdomen) Inspection/Auscultation: normal bowel sounds; abdomen not distended Percussion/Palpation: abdomen nontender Psychiatric A+Ox3, euthymic affect Lymphatic no cervical or axillary lymphadenopathy Discharge Data Allergies Allergy/AdvReac Type Severity Reaction Status Date / Time adhesive Allergy Unknown RASH, Verified 03/10/20 11:13 REDDNESS AT SITE codeine Allergy Unknown RASH, Verified 03/10/20 11:13 SEVERE ITCHING metronidazole Allergy Unknown SEVERE Verified 03/10/20 11:13 YEAST/VAGINAL INFX morphine Allergy Unknown IRREGULAR Verified 03/10/20 11:13 HEART RATE, EXTREME SEDATION propoxyphene AdvReac Unknown A-FIB Verified 03/10/20 11:13 Consultations 03/10/20 12:45 ED Decision to Admit Stat 03/10/20 14:31 Consult Case Management - Discharge Planning Routine 03/11/20 11:42 Consult Gastroenterology Routine 03/13/20 09:42 Consult Cardiology Routine Procedures Performed Operation Date: 03/16/20 08:00 Actual Procedures p Pacer with A/V Leads (Dual) - Lilli Carranza DO s Venogram, Unilateral - Lilli Carranza DO s Bundle of his Recording - Lilli Carranza DO Ordered Studies 03/10/20 10:19 CT abd pelvis IV con only Stat 03/11/20 09:53 CT abd pelvis IV con only Stat 03/11/20 12:35 US duplex mesenteric Stat US duplex portal hepatic veins Stat 03/16/20 08:00 EP Lab Images for PACS ONCE Hospital Course (1) Abdominal pain: (1) Abdominal pain: Pt is 89 y/o F with PMH HTN, HLD, paroxysmal atrial fibrillation on Eliquis, LBBB, cerebral carotid artery aneurysm clipped in 1988, right lung CA s/p surgery presented to ER with c/o mid and lower abdominal pain x 1 day with nausea. ABDOMINAL PAIN SEVERE CONSTIPATION - resolved with BMs -daily Colace, Miralax, Protonix Persistent nausea - patient reports intermittent nausea -likely from recent antibiotic courses -Probiotics ordered -GI recommends Carafate BID x 1 month, Gas X daily -and outpatient EGD and EUS - CT abdomen: 1. There is mild to moderate intrahepatic biliary ductal dilatation, which has increased from yesterday. This is of indeterminant etiology and significance, and may be related to fasting state status post cholecystectomy. Correlate with clinical findings and serum bilirubin levels. 2. There is increasing bibasilar airspace consolidation as compared to yesterday. Correlate clinically for evidence of pneumonia/aspiration pneumonitis. 3. Small pleural effusions are new from yesterday. 4. Intralobular septal thickening is noted at the lung bases. Correlate clinically for evidence of congestive change/fluid overload. 5. Moderate to advanced colonic diverticulosis without CT evidence of acute diverticulitis. 6. There is postoperative change from previous sigmoid colon resection with colocolonic anastomosis. No bowel obstruction is seen. - MRCP was not done due to presence of intracranial/brain aneurysm clips Mesenteric and portal vein ultrasound demonstrated patent vessels ASPIRATION PNEUMONIA - afebrile, no leukocytosis -blood cultures negative - completed Augmentin PO day 06/20 -No signs and/or symptoms of pneumonia RECENT UTI, E COLI - resolved - Urine culture: Corynebacterium A FIB IN RVR POSSIBLE TACHYBRADY SYNDROME -Status post pacemaker placement 03/16/2020 -transitioned from IV Amiodarone to PO Amiodarone 400mg po TID -Eliquis continued - transitioned to Metoprolol tartrate 25 mg twice daily- Verapamil discontinued -outpatient Service Delivery Director follow up ACUTE ON CHRONIC DIASTOLIC CHF - resolved with IV Lasix HISTORY OF TIA -Eliquis HTN -Lisinopril stopped CODE STATUS: Full code DVT prophylaxis: Eliquis Disposition PT/OT evaluation: home with home health services lives with at home anticipate d/c home today ff up with PCP in 1 week ff up with Service Delivery Director as scheduled outpatient EGD and Colonoscopy-as per GI Total Time Total Time Spent Total Time Spent (In Minutes): 35 minutes Total Time Includes: Examination of the Patient, Discharge Planning, Medication Reconciliation and Communication With Other Providers Discharge Plan Discharge Items Patient Disposition: Home - Home Health Services Reason For Visit: ABDOMINAL PAIN Discharge Diagnosis: Persistent nausea with abdominal pain, aspiration pneumonia, paroxysmal atrial fibrillation, tachybradycardia syndrome status post pacemaker, diastolic CHF Condition on Discharge: Fair Activity: As commented below Activity Comment: do not lift the left elbow over the left shoulder for 1 month Lifting: No more than 10 pounds Lifting Comment: do not lift more than 10 pounds with the left arm for 2 weeks Bathing: Keep incision dry Bathing Comment: keep dressing on and dry until wound check next week Non-emergency contact: Primary Care Provider Call non-emergency contact if: you have any medication questions and your symptoms worsen Follow-up/Referrals: Chung Arrington DO [Primary Care Provider] - (Date & Time 03/26/2020 12:00 PM Provider Chung Arrington DO Department [facility] ) Diet: Heart Healthy, Low Fat and Low Sodium (2gm) Addtl Attending Provider Instructions: Device and wound check next week at [facility] on Thursday03/23/2020 at 11:45am Try to wear a sports bra or the surgical bra to assist with wound healing for th e next 2 weeks Tentative date for EGD on 05/04/2020 and GI service will call you with instructions He had to hold your Eliquis for 48 hours before the procedure Pending Studies at Discharge: No Stand-Alone Forms: My [facility] [place] [employer], Smoking Cessation Medications and DC Order Prescriptions: New amiodarone 200 mg Tablet 200 mg PO BIDM 30 Days Qty: 60 RF: 0 pantoprazole 40 mg Tablet,Delayed Release (Dr/Ec) 40 mg PO QAM 30 Days Qty: 30 RF: 0 metoprolol tartrate 25 mg Tablet 25 mg PO BID 30 Days Qty: 60 RF: 0 Eliquis 2.5 mg Tablet 2.5 mg PO BID 30 Days Qty: 60 RF: 0 sucralfate 100 mg/mL Suspension 10 ml PO BID 30 Days Qty: 600 RF: 0 Continued amoxicillin 500 mg tablet 2,000 mg PO ONCE PRN (Reason: prophylaxis) Qty: 4 RF: 2 melatonin 10 mg tablet 10 mg PO HS PRN (Reason: Sleep) RF: 0 atorvastatin [Lipitor] 20 mg Tablet 20 mg PO HS RF: 0 lisinopril 5 mg Tablet 5 mg PO QAM RF: 0 calcium carbonate [Calcium 600] 600 mg calcium (1,500 mg) Tablet 600 mg PO 3XWK RF: 0 magnesium oxide 400 mg magnesium Tablet 400 mg PO QAM RF: 0 diphenhydramine HCl [Sleep Aid (diphenhydramine)] 25 mg Capsule 25 mg PO HS PRN (Reason: Sleep) RF: 0 docusate sodium [Stool Softener] 100 mg Capsule 100 mg PO HS PRN (Reason: Constipation) RF: 0 omega 1-zui-why-fish oil [Fish Oil] 1,200 (144-216) mg Capsule 2 cap PO BID RF: 0 Glucosamine Plus Vitamin D3 1 tab PO QAM RF: 0 Discontinued omeprazole 20 mg Capsule,Delayed Release(Dr/Ec) 20 mg PO QAM RF: 0 verapamil 240 mg Tablet Extended Release 240 mg PO QPM RF: 0 metoprolol succinate 25 mg tablet extended release 24 hr 12.5 mg PO QAM RF: 0 Eliquis 5 mg tablet 5 mg PO BID RF: 0 Discharge Orders: Discharge Order (Routine); Ordered 03/21/20 Ordered By: Maryan Balderas Admission Data Admit Date/Time: 03/11/20 12:34 Attending Provider: Maryan Balderas Admit Provider: Makeda Bautista I. Primary Care Provider: Chung Arrington Other Providers: Rere Manuel ; [facility] ; Makeda Bautista I. ; Chet Garcia ; Alina Navarro ; López Nair ; Francoise Win ; Avni Villalba ; Anam Mena ; Alanna Bray ; Paulo [address] ; Marvin Jacome ; Ann Marie Garcia ; Krystina Costello ; Carla Scott ; Reena Muñoz ; Sonny Martinez ; Angel Dennis ; Bao Walsh ; [place] ; Jose Joseph ; Brad Perry ; German Raya ; Sonya Carrasco ; Lilli Carranza ; Danny Linares ; Mirza Guevara. Other Interventions: Discharge Summary Assessment (RN) Last Done: 03/21/20 14:17
== END 2020-03-21 15:40 | disposition home health service (06) | DRG 242 ==
LOC: 2S 09:48 → ED 09:48 → SUATTDRO 13:13 → 2S 14:11 → SUATTDRO 03-11 12:34 → 2W 03-12 18:36 → 1E 03-13 18:36 → 2S 03-15 14:38

== ENCOUNTER 2020-10-27 15:31 | Inpatient (IN) ==
[2020-10-27] MEDS ORDERED: ONDANSETRON INJ 2 MG/ML 2 ML VIAL IV STA (15:55)
--- NOTE | 2020-10-27 16:11 | Emergency Department Note ---
Impression & Plan Acute hypotension, SOB (shortness of breath) ED Provider Note NAME: FAHAD RICH AGE: 89 SEX: F : 1930 ARRIVES VIA: Walk-In INFORMANT: Patient, ED PROVIDER(S): Paulo Lindsey DO CHIEF COMPLAINT: Shortness of breath HPI: The patient is an 89-year-old female who presented to the emergency department for an evaluation of shortness of breath. The patient has been experiencing dyspnea on exertion for quite some time. She states the symptoms wax and wane but over the course the last week they have become worse. The patient notices some dyspnea on exertion. She denies having any orthopnea. She denies having a cough or fever. She states she has been compliant with all of her outpatient medications. She denies have any lower extremity swelling or chest pain. She denies having any recent trauma. She was seen by her primary care physician recently and diagnosed with a yeast infection. She is taking medication for this. She has had some weight loss because of nausea. She states she just does not have an appetite. The patient is also concerned about her pacemaker. ROS: See above HPI for pertinent positives & negatives. A total of 10 systems reviewed and were otherwise negative. PAST MEDICAL HISTORY: See Below PAST SURGICAL HISTORY: See Below FAMILY HISTORY: See Below SOCIAL HISTORY: See Below HOME MEDICATIONS: See Below ALLERGIES: See Below VITALS: See Below PHYSICAL EXAMINATION: GENERAL: Patient is awake alert in no acute distress patient is resting comfortably and showing no signs of anxiety EYES: The conjunctivae are clear. The pupils are round and reactive. EARS, NOSE, MOUTH AND THROAT: The nose is without any evidence of any deformity. NECK: The neck is nontender and supple. RESPIRATORY: Diminished breath sounds are noted at the left base. There were no tachypnea or conversational dyspnea. CARDIOVASCULAR: Regular rate and rhythm noted there no murmurs rubs or gallops normal S1 normal S2. GASTROINTESTINAL: The abdomen is soft. Abdomen is nontender. MUSCULOSKELETAL/EXTREMITIES: There is no evidence of gross deformity full range of motion is noted in the hips and shoulders. SKIN: There is no obvious evidence of any rash. There are no petechiae, pallor or cyanosis noted. NEUROLOGIC: Patient is awake alert and oriented x3. MEDICAL DECISION MAKING: The patient is an 89-year-old female who presented to the emergency department for an evaluation of shortness of breath. The patient was found to have hypotension on multiple occasions. She was treated with IV fluids in the emergency department. She did have a slight cough. Chest x-ray showed no definite signs of infection. She was treated with IV antibiotics. I discussed the patient's laboratory and radiographic studies with her. There was a delay in obtaining the patient's labs. Ultimately the patient was felt to be suffering from an infectious process. She was started on an antibiotic for UTI. She was still feeling ill on my final reevaluation. For this reason I [facility] have agreed to evaluate the patient in the emergency department for further management and disposition. The patient's pacemaker was interrogated. It appears to be working well. Triage Nursing notes reviewed. Prior medical records reviewed Vital Signs: reviewed and remarkable for hypotension. Differential diagnosis: Reactive airway disease, pneumonia, pneumothorax, COPD, CHF, infections, cardiac ischemia, pulmonary embolism, musculoskeletal, gastrointestinal, as well as other pathologies. ER treatment provided: See below Diagnostics interpreted by me: ECG: EKG was obtained in the emergency department. My interpretation is sinus rhythm at 66 bpm. There was no ectopy. Left bundle branch block pattern was noted. This was compared to a tracing from March 172020. No significant changes were noted. Cardiac Monitoring: An order was placed for continuous cardiac monitoring. The monitor shows a rate of 69 bpm with sinus rhythm. Laboratory studies: As stated above and show below. Imaging studies: See below Consultation(s): [id number]: I discussed this case with Dr. Talley who [facility]. 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 Bay History of lung cancer 1993- s/p RUL lung resection History of trigger finger multiple to both hands Hyperlipidemia Hypertension Longstanding LBBB (left bundle branch block) Chronic per cardio records Pacemaker Placed Mar 16, 2020> [facility] > follows Dr. 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 Phu TIA (transient ischemic attack) no further issues > 2018 > doesn't follow neuro Surgical History H/O section x1 H/O hemorrhoidectomy H/O ultrasound guided needle biopsy of lung History of cardiac cath 2010 - no obstructive CAD History of carpal tunnel release bilat History of cataract surgery bilat History of colon resection 8 inches > 2001 History of colonoscopy History of hysterectomy History of lung surgery 1993 > RUL > due to cancer > no chemo/radiation History of right shoulder replacement reverse History of spinal surgery Hx of cholecystectomy Hx of exploratory thoracotomy Family History Aunt Diabetes Other Abdominal aortic aneurysm Stroke Social History Smoking Status: Never smoker Second Hand Exposure: No; Hx Alcohol Use: Yes Alcohol type: wine and hard liquor Hx Substance Use: No Preferred Language: Faroese Communication Ability: Effective Picking Tech Required: No Beliefs That Will Affect Care: None marital status: Current Living Situation: Spouse Feels Safe at Home: Yes Assistive Devices: Glasses Allergies Allergies Allergy/AdvReac Type Severity Reaction Status Date / Time adhesive Allergy Unknown RASH, Verified 10/27/20 16:31 REDDNESS AT SITE codeine Allergy Unknown RASH, Verified 10/27/20 16:31 SEVERE ITCHING metronidazole Allergy Unknown SEVERE Verified 10/27/20 16:31 YEAST/VAGINAL INFX morphine Allergy Unknown IRREGULAR Verified 10/27/20 16:31 HEART RATE, EXTREME SEDATION propoxyphene AdvReac Unknown A-FIB Verified 10/27/20 16:31 Home Meds Home Medications Medication Instructions Recorded Confirmed atorvastatin 20 mg tablet (Lipitor) 20 mg PO PM 01/30/18 10/27/20 lisinopril 5 mg tablet 5 mg PO QAM 01/30/18 10/27/20 melatonin 10 mg tablet 10 mg PO HS PRN tab 10/26/18 10/27/20 calcium carbonate 600 mg calcium 600 mg PO [id number] PRN 12/31/19 10/27/20 (1,500 mg) tablet (Calcium) diphenhydramine HCl 25 mg capsule 25 mg PO HS PRN 12/31/19 10/27/20 (Sleep Aid (diphenhydramine)) magnesium oxide 400 mg PO QAM 12/31/19 10/27/20 docusate sodium 100 mg capsule 100 mg PO HS PRN 03/10/20 10/27/20 (Stool Softener) omega 5-yrx-htg-fish oil 1,200 mg 2 cap PO BID 03/10/20 10/27/20 (144 mg-216 mg) capsule (Fish Oil) amiodarone 200 mg tablet 100 mg PO QAM 05/03/20 10/27/20 apixaban 2.5 mg tablet (Eliquis) 2.5 mg PO BID 05/03/20 10/27/20 glucosamine sulf dipot 2 cap PO QAM 05/03/20 10/27/20 chlr,msm,chond 550 mg-C 30 mg-yennifer 1 mg capsule (Glucosamine Chondroitin) metoprolol tartrate 25 mg tablet 25 - 50 mg PO BID 05/03/20 10/27/20 pantoprazole 40 mg tablet,delayed 40 mg PO QAM 05/03/20 10/27/20 release magnesium hydroxide 400 mg/5 mL 15 ml PO DAILY PRN 05/25/20 10/27/20 oral suspension (Milk of Magnesia) amoxicillin 500 mg capsule 500 mg PO TID 10/27/20 10/27/20 nitrofurantoin 100 mg PO BID 10/27/20 10/27/20 monohydrate/macrocrystals 100 mg capsule Previous Rx's Medication Instructions Recorded amoxicillin 500 mg tablet 2,000 mg PO ONCE PRN #4 tab 01/09/20 Results & Data (ED) Vital Signs Vital Signs - 24 hr 10/27/20 15:35 10/27/20 16:35 10/27/20 17:00 Temperature 36.6 C Temperature Source Oral Pulse Rate 73 83 65 Pulse Rate [Apical] 63 Pulse Rate from SpO2 Sensor 77 66 Respiratory Rate 18 23 21 Respiratory Effort / Characteristics Non-Labored Spontaneous Short of Breath Respiratory Depth Normal Blood Pressure 103/61 97/43 L 90/49 L Blood Pressure [Left Arm] 101/41 L Blood Pressure Mean 75 61 62 Blood Pressure Mean [Left Arm] 61 Blood Pressure Position Sitting Blood Pressure Position [Left Arm] Lying Pulse Oximetry 93 92 94 Oxygen Delivery Method Room Air Room Air Sepsis Recent Fever Within 48 Hours No Sepsis New/Unexplained Change in Mental Status N/A Sepsis Action Taken by Nursing No Action Required 10/27/20 17:30 10/27/20 18:00 10/27/20 18:30 Temperature Temperature Source Pulse Rate 64 64 64 Pulse Rate [Apical] Pulse Rate from SpO2 Sensor 63 64 64 Respiratory Rate 19 21 21 Respiratory Effort / Characteristics Respiratory Depth Blood Pressure 84/50 L 94/47 L 93/41 L Blood Pressure [Left Arm] Blood Pressure Mean 61 62 58 Blood Pressure Mean [Left Arm] Blood Pressure Position Blood Pressure Position [Left Arm] Pulse Oximetry 93 93 92 Oxygen Delivery Method Sepsis Recent Fever Within 48 Hours Sepsis New/Unexplained Change in Mental Status Sepsis Action Taken by Nursing 10/27/20 19:00 10/27/20 19:30 10/27/20 20:00 Temperature Temperature Source Pulse Rate 65 65 65 Pulse Rate [Apical] Pulse Rate from SpO2 Sensor 65 66 64 Respiratory Rate 24 24 24 Respiratory Effort / Characteristics Respiratory Depth Blood Pressure 96/45 L 94/38 L 105/45 L Blood Pressure [Left Arm] Blood Pressure Mean 62 56 65 Blood Pressure Mean [Left Arm] Blood Pressure Position Blood Pressure Position [Left Arm] Pulse Oximetry 93 93 96 Oxygen Delivery Method Room Air Sepsis Recent Fever Within 48 Hours Sepsis New/Unexplained Change in Mental Status Sepsis Action Taken by Nursing 10/27/20 20:30 10/27/20 21:00 10/27/20 21:30 Temperature Temperature Source Pulse Rate 69 69 69 Pulse Rate [Apical] Pulse Rate from SpO2 Sensor 69 69 Respiratory Rate 24 15 24 Respiratory Effort / Characteristics Respiratory Depth Blood Pressure 103/32 L 103/51 L 108/44 L Blood Pressure [Left Arm] Blood Pressure Mean 55 68 65 Blood Pressure Mean [Left Arm] Blood Pressure Position Blood Pressure Position [Left Arm] Pulse Oximetry 94 94 95 Oxygen Delivery Method Room Air Room Air Room Air Sepsis Recent Fever Within 48 Hours Sepsis New/Unexplained Change in Mental Status Sepsis Action Taken by Long Term Medications Current Medication List: was personally reviewed by me Laboratory Data Attestation: I reviewed the patient's lab results. Result diagrams: 10/27/20 16:56 10/27/20 19:31 Lab Results 10/27/20 10/27/20 10/27/20 Range/Units 16:56 16:56 16:56 WBC 12.77 H (4.8-10.8) K/uL RBC 4.61 (4.2-5.4) M/uL Hgb 13.1 (12.0-16.0) g/dL Hct 38.3 (37-47) % MCV 83.1 (80-100) fL MCH 28.4 (25-34) pg MCHC 34.2 (32-36) g/dL RDW Std Deviation 44.6 (36.4-46.3) fL RDW Coeff of Coleman 14.8 H (11.5-14.5) % Plt Count 191 (130-400) K/uL MPV 10.0 (7.4-10.4) fL Immature Gran % (Auto) 0.3 % Neut % (Auto) 89.0 % Lymph % (Auto) 3.7 % Kaufman % (Auto) 4.2 % Eos % (Auto) 2.7 % Baso % (Auto) 0.1 % Neut # (Auto) 11.36 H (1.4-6.5) K/uL Lymph # (Auto) 0.47 L (1.2-3.4) K/uL Kaufman # (Auto) 0.54 (0.11-0.59) K/uL Eos # (Auto) 0.35 (0-0.5) K/uL Baso # (Auto) 0.01 (0-0.2) K/uL Immature Gran # (Auto) 0.04 H (0.00-0.02) K/uL PT Cancelled INR Cancelled APTT Cancelled PTT Ratio Cancelled D-Dimer (0-500) ug/L FEU Sodium Cancelled Potassium Cancelled Chloride Cancelled Carbon Dioxide Cancelled Anion Gap Cancelled BUN Cancelled Creatinine Cancelled Est Cr Clr Drug Dosing Cancelled Est GFR ( Amer) Cancelled Est GFR (Non-Af Amer) Cancelled BUN/Creatinine Ratio Cancelled Glucose Cancelled Lactate (0.4-2.0) mmol/L Calcium Cancelled Magnesium Cancelled Total Bilirubin Cancelled AST Cancelled ALT Cancelled Alkaline Phosphatase Cancelled Troponin I Cancelled NT-Pro-B Natriuret Pep Cancelled Total Protein Cancelled Albumin Cancelled Globulin Cancelled Albumin/Globulin Ratio Cancelled Lipase (73-393) U/L TSH (0.300-4.500) uIu/ml Anaplasma Smear COVID-19 Eval Order SARS-CoV-2, RNA, NAAT (NEGATIVE) 10/27/20 10/27/20 10/27/20 Range/Units 16:56 17:00 17:00 WBC (4.8-10.8) K/uL RBC (4.2-5.4) M/uL Hgb (12.0-16.0) g/dL Hct (37-47) % MCV (80-100) fL MCH (25-34) pg MCHC (32-36) g/dL RDW Std Deviation (36.4-46.3) fL RDW Coeff of Coleman (11.5-14.5) % Plt Count (130-400) K/uL MPV (7.4-10.4) fL Immature Gran % (Auto) % Neut % (Auto) % Lymph % (Auto) % Kaufman % (Auto) % Eos % (Auto) % Baso % (Auto) % Neut # (Auto) (1.4-6.5) K/uL Lymph # (Auto) (1.2-3.4) K/uL Kaufman # (Auto) (0.11-0.59) K/uL Eos # (Auto) (0-0.5) K/uL Baso # (Auto) (0-0.2) K/uL Immature Gran # (Auto) (0.00-0.02) K/uL PT INR APTT PTT Ratio D-Dimer (0-500) ug/L FEU Sodium Potassium Chloride Carbon Dioxide Anion Gap BUN Creatinine Est Cr Clr Drug Dosing Est GFR ( Amer) Est GFR (Non-Af Amer) BUN/Creatinine Ratio Glucose Lactate (0.4-2.0) mmol/L Calcium Magnesium Total Bilirubin AST ALT Alkaline Phosphatase Troponin I NT-Pro-B Natriuret Pep Total Protein Albumin Globulin Albumin/Globulin Ratio Lipase (73-393) U/L TSH (0.300-4.500) uIu/ml Anaplasma Smear See Comment COVID-19 Eval Order Covid19 [facility] SARS-CoV-2, RNA, NAAT NEGATIVE (NEGATIVE) 10/27/20 10/27/20 10/27/20 Range/Units 19:31 19:31 19:31 WBC (4.8-10.8) K/uL RBC (4.2-5.4) M/uL Hgb (12.0-16.0) g/dL Hct (37-47) % MCV (80-100) fL MCH (25-34) pg MCHC (32-36) g/dL RDW Std Deviation (36.4-46.3) fL RDW Coeff of Coleman (11.5-14.5) % Plt Count (130-400) K/uL MPV (7.4-10.4) fL Immature Gran % (Auto) % Neut % (Auto) % Lymph % (Auto) % Kaufman % (Auto) % Eos % (Auto) % Baso % (Auto) % Neut # (Auto) (1.4-6.5) K/uL Lymph # (Auto) (1.2-3.4) K/uL Kaufman # (Auto) (0.11-0.59) K/uL Eos # (Auto) (0-0.5) K/uL Baso # (Auto) (0-0.2) K/uL Immature Gran # (Auto) (0.00-0.02) K/uL PT 11.4 INR 1.1 APTT 34.4 H PTT Ratio 1.3 D-Dimer 390 (0-500) ug/L FEU Sodium 136 Potassium 3.9 Chloride 104 Carbon Dioxide 26 Anion Gap 6.0 BUN 22 H Creatinine 1.09 Est Cr Clr Drug Dosing 30.8 Est GFR ( Amer) 52.5 Est GFR (Non-Af Amer) 45.3 BUN/Creatinine Ratio 20.0 Glucose 99 Lactate (0.4-2.0) mmol/L Calcium 8.0 L Magnesium 2.1 Total Bilirubin 1.8 H AST 30 ALT 31 Alkaline Phosphatase 57 Troponin I < 0.015 NT-Pro-B Natriuret Pep 993 Total Protein 6.1 L Albumin 2.9 L Globulin 3.2 Albumin/Globulin Ratio 0.9 Lipase 99 Cancelled (73-393) U/L TSH 4.310 (0.300-4.500) uIu/ml Anaplasma Smear COVID-19 Eval Order SARS-CoV-2, RNA, NAAT (NEGATIVE) 10/27/20 Range/Units 21:01 WBC (4.8-10.8) K/uL RBC (4.2-5.4) M/uL Hgb (12.0-16.0) g/dL Hct (37-47) % MCV (80-100) fL MCH (25-34) pg MCHC (32-36) g/dL RDW Std Deviation (36.4-46.3) fL RDW Coeff of Coleman (11.5-14.5) % Plt Count (130-400) K/uL MPV (7.4-10.4) fL Immature Gran % (Auto) % Neut % (Auto) % Lymph % (Auto) % Kaufman % (Auto) % Eos % (Auto) % Baso % (Auto) % Neut # (Auto) (1.4-6.5) K/uL Lymph # (Auto) (1.2-3.4) K/uL Kaufman # (Auto) (0.11-0.59) K/uL Eos # (Auto) (0-0.5) K/uL Baso # (Auto) (0-0.2) K/uL Immature Gran # (Auto) (0.00-0.02) K/uL PT INR APTT PTT Ratio D-Dimer (0-500) ug/L FEU Sodium Potassium Chloride Carbon Dioxide Anion Gap BUN Creatinine Est Cr Clr Drug Dosing Est GFR ( Amer) Est GFR (Non-Af Amer) BUN/Creatinine Ratio Glucose Lactate 1.3 (0.4-2.0) mmol/L Calcium Magnesium Total Bilirubin AST ALT Alkaline Phosphatase Troponin I NT-Pro-B Natriuret Pep Total Protein Albumin Globulin Albumin/Globulin Ratio Lipase (73-393) U/L TSH (0.300-4.500) uIu/ml Anaplasma Smear COVID-19 Eval Order SARS-CoV-2, RNA, NAAT (NEGATIVE) Administered Medications Discontinued Medications Sodium Chloride (Nss 1000ml) 500 mls @ 999 mls/hr IV .Q31M ONE Stop: 10/27/20 17:17 Last Infusion: 10/27/20 17:25 Dose: 0 mls/hr Documented by: [id number] Admin: 10/27/20 16:54 Dose: 999 mls/hr Documented by: [id number] Sodium Chloride (Nss 1000ml) 500 mls @ 999 mls/hr IV .Q31M ONE Stop: 10/27/20 18:30 Last Infusion: 10/27/20 18:33 Dose: 0 mls/hr Documented by: [id number] Admin: 10/27/20 18:02 Dose: 999 mls/hr Documented by: [id number] Sodium Chloride (Nss 1000ml) 500 mls @ 999 mls/hr IV .Q31M ONE Stop: 10/27/20 21:03 Last Admin: 10/27/20 21:27 Dose: 999 mls/hr Documented by: [id number] Ceftriaxone Sodium (Rocephin) 1,000 mg in 50 mls @ 100 mls/hr IV NOW STA Stop: 10/27/20 21:02 Last Admin: 10/27/20 22:00 Dose: Not Given Documented by: [id number] Cefepime HCl (Maxipime) 2,000 mg in 20 mls @ 5 mls/min IV NOW STA; Protocol Stop: 10/27/20 20:53 Last Admin: 10/27/20 21:22 Dose: 5 mls/min Documented by: [id number] Ioversol (Optiray 320 100ml) 94 ml IV ONCE ONE Stop: 10/27/20 21:34 Last Admin: 10/27/20 21:34 Dose: 1 ml Documented by: [id number] Ondansetron HCl (Ondansetron Inj 2 Mg/Ml 2 Ml Vial) 4 mg IV NOW STA Stop: 10/27/20 15:56 Last Admin: 10/27/20 16:54 Dose: 4 mg Documented by: [id number] Imaging Data Radiologist's Impression: Chest X-Ray 10/27/20 15:53 XR chest 1V portable HISTORY: 89 years-old Female Dyspnea acute shortness of breath COMPARISON: Chest radiograph 05/25/2020 TECHNIQUE: Portable AP view of the chest FINDINGS: Cardiac silhouette is normal in size. Left subclavian pacer. Calcified plaque the thoracic aorta. Chronic interstitial coarsening. No pneumothorax, large pleural effusion or overt pulmonary edema. Mild blunting of the costophrenic angles suggestive of atelectasis. Degenerative changes of the spine and left shoulder. Reverse right shoulder total joint arthroplasty. IMPRESSION: Chronic findings as above without acute process. ACT 112: Negative or not required by law. The above report was generated using voice recognition software. It may contain grammatical, syntax or spelling errors. Electronically signed by: Chacho Schrader M.D. 10/27/2020 5:05 PM Discharge Plan Visit Data Chief Complaint: Illness Stated Complaint: UPSET STOMACH ED Provider: Paulo Lindsey Discharge Problem: Acute hypotension, SOB (shortness of breath) Patient Disposition: Admitted As Inpatient Condition: Good Discharge Instructions Interventions: ED Discharge Assessment Last Done: 10/27/20 22:24
[2020-10-27] MEDS ORDERED: SODIUM CHLORIDE 0.9% 1000ML 500 ML IV ONE ×3 (16:47→20:33)
--- NOTE | 2020-10-27 17:06 | XRay Report ---
XR chest 1V portable HISTORY: 89 years-old Female Dyspnea acute shortness of breath COMPARISON: Chest radiograph 05/25/2020 TECHNIQUE: Portable AP view of the chest FINDINGS: Cardiac silhouette is normal in size. Left subclavian pacer. Calcified plaque the thoracic aorta. Chr onic interstitial coarsening. No pneumothorax, large pleural effusion or overt pulmonary edema. Mild blunting of the costophrenic angles suggestive of atelectasis. Degenerative changes of the spine and left shoulder. Reverse right shoulder total joint arthroplasty. IMPRESSION: Chronic findings as above without acute process. ACT 112: Negative or not required by law. The above report was generated using voice recognition software. It may contain grammatical, syntax o r spelling errors. Electronically signed by: Chacho Schrader M.D. 10/27/2020 5:05 PM
[2020-10-27 17:07] LABS: Basophils # (auto) 0.01 K/uL (0-0.2); Basophils % (auto) 0.1 %; Eosinophils # (auto) 0.35 K/uL (0-0.5); Eosinophils % (auto) 2.7 %; Hematocrit (blood only) 38.3 % (37-47); Hemoglobin 13.1 g/dL (12.0-16.0); Immature Granulocytes # (auto) 0.04 K/uL (0.00-0.02); Immature Granulocytes % (auto) 0.3 %; Lymphocytes # (auto) 0.47 K/uL (1.2-3.4); Lymphocytes % (auto) 3.7 %; Mean Corpuscular Hemoglobin 28.4 pg (25-34); Mean Corpuscular Hgb Conc 34.2 g/dL (32-36); Mean Corpuscular Volume 83.1 fL (80-100); Monocytes # (auto) 0.54 K/uL (0.11-0.59); Monocytes % (auto) 4.2 %; Neutrophils # (auto) 11.36 K/uL (1.4-6.5); Platelet Count 191 K/uL (130-400); RDW Coefficient of Variation 14.8 % (11.5-14.5); RDW Standard Deviation 44.6 fL (36.4-46.3); Red Blood Count 4.61 M/uL (4.2-5.4); White Blood Count 12.77 K/uL (4.8-10.8)
[2020-10-27 20:08] LABS: D Dimer 390 ug/L FEU (0-500); INR 1.1 (0.9-1.1); Partial Thromboplastin Ratio 1.3; Partial Thromboplastin Time 34.4 Seconds (21.0-31.0); Prothrombin Time 11.4 Seconds (9.0-12.0)
[2020-10-27 20:13] LABS: Alanine Aminotransferase 31 U/L (12-78); Albumin Level 2.9 gm/dl (3.4-5.0); Aspartate Aminotransferase 30 U/L (15-37); Blood Urea Nitrogen 22 mg/dl (7-18); Carbon Dioxide 26 mmol/L (21-32); Chloride 104 mmol/L (98-107); Creatinine Clr Calc Pharmacy 30.8 ml/min; Est GFR (African American) 52.5 ml/min; Est GFR (Non-African American) 45.3 ml/min; Glucose 99 mg/dl (70-99); Magnesium 2.1 mg/dl (1.8-2.4); Potassium 3.9 mmol/L (3.5-5.1); Sodium 136 mmol/L (136-145)
[2020-10-27 20:19] LABS: Albumin Globulin Ratio 0.9 (0.9-2); Alkaline Phosphatase 57 U/L (45-117); Bilirubin,Total 1.8 mg/dl (0.2-1); Globulin 3.2 gm/dl (2.5-4.0); NT Pro B Type Natriuretic Pept 993 pg/ml (0-1800); Total Protein 6.1 gm/dl (6.4-8.2); Troponin I < 0.015 ng/ml (0-0.045)
[2020-10-27] MEDS ORDERED: cefTRIAXone SODIUM 1,000 MG/50 ML BAG IV STA (20:33)
[2020-10-27] MEDS ORDERED: CEFEPIME 2,000 MG/20 ML VIAL IV STA (20:50)
[2020-10-27] MEDS ORDERED: OPTIRAY 320 100ml IV ONE (21:33)
[2020-10-27] MEDS ORDERED: NSS + 20MEQ KCL 20 MEQ/1,000 ML BAG IV ONE (21:35)
[2020-10-27 22:02] LABS: Lipase 99 U/L (73-393)
[2020-10-27] MEDS ORDERED: MELATONIN 3 MG TAB PO PRN (22:49)
[2020-10-27] MEDS ORDERED: ACETAMINOPHEN 325 MG TAB PO PRN (22:49)
[2020-10-27] MEDS ORDERED: PROMETHAZINE HCL 12.5 MG in SODIUM CHLORIDE 0.9% 50 ML IV PRN (22:49)
[2020-10-27] MEDS ORDERED: CEFEPIME CONSULT ACTIVE PRN (22:49)
[2020-10-27] MEDS ORDERED: NITROGLYCERIN SL 0.4 MG/TAB TAB SL PRN (22:49)
[2020-10-27] MEDS ORDERED: DOCUSATE SODIUM 100 MG CAP PO PRN (22:49)
[2020-10-27] MEDS ORDERED: traMADol HCL 50 MG TABLET PO PRN (22:49)
[2020-10-27 23:08] LABS: Lyme Ab IgG w/WB Rflx Negative (Negative)
[2020-10-27 23:09] LABS: Lyme Ab IgM w/WB Rflx Negative (Negative)
--- NOTE | 2020-10-27 23:59 | History & Physical Report ---
Date of Service October 27, 2020 Assessment & Plan (1) Acute hypotension: Plan: Secondary to mild hypovolemia/poor p.o. 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 given patient complaints Exertional shortness of breath on exertion w chronic dry cough symptoms Likely secondary to COPD Possible new lesions on initial CT chest read Known history pulmonary nodules Rule out recurrent lung cancer, history surgery hx CAD/PVD/TIA as per records hx LBBB Hyperlipidemia on statin Rx PCU IVF, hold home BP meds for now Follow final outpatient urine CS results, Cefepime for now PPM interrogation Cardiology consult Re: PPM concerns, medication management given hypotension Follow official CT chest results May benefit from inpatient Pulmonology consultation regarding COPD symptoms and abnormal CT chest results PT OT eval DVT prophylaxis. Eliquis Full code Patient requests for her to be updated of plan of care. Mr. Jose Payan, contact number #[phone]. Text document was generated using [employer] voice recognition software. It may contain grammatical or spelling errors. Kindly contact undersigned for clarification of any documentation item in question. Admission and Anticipated Discharge Date Admission Date: October 27, 2020 History of Present Illness Chief Complaint: Shortness of breath Primary Care Provider: Chung Arrington DO History obtained from patient and records. Medical history significant for COPD, history of pulmonary nodules, lung cancer R sp surgery , CAD/PVD/TIA as per records, SSS sp PPM on Eliquis, hypertension, hyperlipidemia, hx LBBB. Last confinement March 2020 for aspiration pneumonia, SSS status post PPM. 3 months history of shortness of breath symptoms usually on exertion as per patient, dry cough symptoms without fever, chills. No known recent sick contacts. Baseline PFTs contemplated by salvage laborer as per outpatient video appointment from 3 months ago. Outpatient [facility] visit 3 weeks ago. Patient mentioned intermittent chest discomfort especially on encountering bumps on rough roads. Possible sensed ventricular ectopy as per provider note. Pacemaker clinic appointment contemplated as per patient. Patient Amiodarone reduced to 100 mg p.o. daily. Patient not feeling well the last few days. Abdominal discomfort with UTI symptoms without fever chills. Poor appetite. Patient seen at PCPs office 2 days ago. Amoxicillin prescribed for possible UTI. Preliminary outpatient urine CS showed gram-negative rods, lactose fermenting. Patient consulted ER tonight because she did not feel well. SBP 80 to 90s at the ER. MEDICAL HISTORY: As above. SURGERIES: PPM, Shoulder surgery, lung surgery, bowel surgery. Trigger finger release, MADISYN, carpal tunnel surgery, skin cancer surgery, cholecystectomy FAMILY HISTORY: heart disease. PERSONAL AND SOCIAL HISTORY: Nonsmoker. No chronic intake of ETOH intake. 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 Allergies Allergy/AdvReac Type Severity Reaction Status Date / Time adhesive Allergy Unknown RASH, Verified 10/27/20 16:31 REDDNESS AT SITE codeine Allergy Unknown RASH, Verified 10/27/20 16:31 SEVERE ITCHING metronidazole Allergy Unknown SEVERE Verified 10/27/20 16:31 YEAST/VAGINAL INFX morphine Allergy Unknown IRREGULAR Verified 10/27/20 16:31 HEART RATE, EXTREME SEDATION propoxyphene AdvReac Unknown A-FIB Verified 10/27/20 16:31 Home Medications Medication Instructions Recorded Confirmed Type atorvastatin 20 mg tablet (Lipitor) 20 mg PO PM 01/30/18 10/27/20 History lisinopril 5 mg tablet 5 mg PO QAM 01/30/18 10/27/20 History melatonin 10 mg tablet 10 mg PO HS PRN tab 10/26/18 10/27/20 History calcium carbonate 600 mg calcium 600 mg PO 3XWK PRN 12/31/19 10/27/20 History (1,500 mg) tablet (Calcium) diphenhydramine HCl 25 mg capsule 25 mg PO HS PRN 12/31/19 10/27/20 History (Sleep Aid (diphenhydramine)) magnesium oxide 400 mg PO QAM 12/31/19 10/27/20 History amoxicillin 500 mg tablet 2,000 mg PO ONCE PRN #4 tab 01/09/20 10/27/20 Rx docusate sodium 100 mg capsule 100 mg PO HS PRN 03/10/20 10/27/20 History (Stool Softener) omega 0-aqy-zwi-fish oil 1,200 mg 2 cap PO BID 03/10/20 10/27/20 History (144 mg-216 mg) capsule (Fish Oil) amiodarone 200 mg tablet 100 mg PO QAM 05/03/20 10/27/20 History apixaban 2.5 mg tablet (Eliquis) 2.5 mg PO BID 05/03/20 10/27/20 History glucosamine sulf dipot 2 cap PO QAM 05/03/20 10/27/20 History chlr,msm,chond 550 mg-C 30 mg-yennifer 1 mg capsule (Glucosamine Chondroitin) metoprolol tartrate 25 mg tablet 25 - 50 mg PO BID 05/03/20 10/27/20 History pantoprazole 40 mg tablet,delayed 40 mg PO QAM 05/03/20 10/27/20 History release magnesium hydroxide 400 mg/5 mL 15 ml PO DAILY PRN 05/25/20 10/27/20 History oral suspension (Milk of Magnesia) amoxicillin 500 mg capsule 500 mg PO TID 10/27/20 10/27/20 History nitrofurantoin 100 mg PO BID 10/27/20 10/27/20 History monohydrate/macrocrystals 100 mg capsule Past Med/Surg History Medical History 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 Bay History of lung cancer 1993- s/p RUL lung resection History of trigger finger multiple to both hands Hyperlipidemia Hypertension Longstanding LBBB (left bundle branch block) Chronic per cardio records Pacemaker Placed Mar 16, 2020> [facility] > follows Dr. 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 Bay TIA (transient ischemic attack) no further issues > 2017 > doesn't follow neuro Surgical History H/O section x1 H/O hemorrhoidectomy H/O ultrasound guided needle biopsy of lung History of cardiac cath 2010 - no obstructive CAD History of carpal tunnel release bilat History of cataract surgery bilat History of colon resection 8 inches > 2001 History of colonoscopy History of hysterectomy History of lung surgery 1993 > RUL > due to cancer > no chemo/radiation History of right shoulder replacement reverse History of spinal surgery Hx of cholecystectomy Hx of exploratory thoracotomy Family History Aunt Diabetes Other Abdominal aortic aneurysm Stroke Social History Smoking Status: Never smoker Second Hand Exposure: No; Hx Alcohol Use: Yes Alcohol type: wine and hard liquor Hx Substance Use: No Preferred Language: Chinese Communication Ability: Effective Mobile Device Developer Required: No Beliefs That Will Affect Care: None marital status: Current Living Situation: Spouse Other Information That Helps Us Care for You: No Feels Safe at Home: Yes Safety Concerns: Feels Safe At This Time Assistive Devices: Glasses Review of Systems Review of Systems: As per HPI, all 10 systems reviewed, all other ROS negative Physical Exam Physical Exam: GENERAL: Comfortable, slightly anxious, no respiratory distress, pleasant, slightly hard of hearing, looks younger than stated age SKIN: Normal color, warm HEENT: [place] palpebral conjunctivae, no ptosis, dry buccal mucosa NECK : Supple, no tenderness CHEST : Decreased breath sounds, no tenderness HEART : RRR, systolic murmur ABDOMEN: Some distention, nontender EXTREMITIES : No LE swelling/tenderness, no other conspicuous deformities noted NEUROLOGIC : Coherent, no facial asymmetry, no other gross focality Results & Data Results & Data ([facility]) Vital Signs (Past 12 Hours) Vital Signs Temp Pulse Pulse Resp BP BP Pulse Ox 10/27/20 22:52 37.1 C 71 20 114/59 L 94 10/27/20 22:00 69 23 99/55 L 95 10/27/20 21:30 69 24 108/44 L 95 10/27/20 21:00 69 15 103/51 L 94 10/27/20 20:30 69 24 103/32 L 94 10/27/20 20:00 65 24 105/45 L 96 10/27/20 19:30 65 24 94/38 L 93 10/27/20 19:00 65 24 96/45 L 93 10/27/20 18:30 64 21 93/41 L 92 10/27/20 18:00 64 21 94/47 L 93 10/27/20 17:30 64 19 84/50 L 93 10/27/20 17:00 65 21 90/49 L 94 10/27/20 16:35 83 63 23 97/43 L 101/41 L 92 10/27/20 15:35 36.6 C 73 18 103/[address] chest initial read: No demonstrated pulmonaryembolismor arterial dissection. Spiculated lesion in the base of the right middle lobe. Smaller spiculated lesion in the medial segment of the right middle lobe. Multiple subcentimeter nodules in the left lower lobe. These are suspicious for a malignant process. Further evaluation bymeans of PET/CT scan or biopsywould be helpful. Subsegmental atelectatic changes in the left lower lobe. Atherosclerotic vascular disease. CT abdomen pelvis initial read: Status post cholecystectomy. Large bowel diverticulosis, no diverticulitis. Atherosclerotic abdominal aorta. Status post hysterectomy. Left adrenal gland nodule EKG as per my interpretation: Rate 65, NSR, LAD, LBBB Code Status & VTE Plan VTE Prophylaxis Plan VTE Prophylaxis will be ordered: Yes
[2020-10-28] MEDS ORDERED: ALBUT/IPRATROP 3MG/0.5MG NEB 3 ML VIAL NEB PRN (00:03)
[2020-10-28] MEDS ORDERED: APIXABAN 2.5 MG TAB PO STA (00:03)
[2020-10-28 06:39] LABS: Appearance Urine Clear (Clear); Bacteria Urine Automated Negative (Negative); Bilirubin Urine Negative (Negative); Blood Urine Trace (Negative); Color Urine Yellow; Epithelial Cell Urine Auto >30 /lpf (0-5); Glucose Urine UA Negative (Negative); Ketones Urine Trace (Negative); Leukocyte Esterase Urine Trace (Negative); Nitrite Urine Negative (Negative); Protein Urine Negative (Negative); RBC Urine Automated 0-4 /hpf (0-4); Specific Gravity Urine > 1.045 (1.000-1.030); Urobilinogen Urine Negative (Negative); pH Urine 5.5 (4.5-7.5)
[2020-10-28 07:25] LABS: Eosinophils # (auto) 0.47 K/uL (0-0.5); Eosinophils % (auto) 6.1 %; Hematocrit (blood only) 33.8 % (37-47); Hemoglobin 11.2 g/dL (12.0-16.0); Immature Granulocytes # (auto) 0.01 K/uL (0.00-0.02); Immature Granulocytes % (auto) 0.1 %; Lymphocytes # (auto) 0.68 K/uL (1.2-3.4); Lymphocytes % (auto) 8.8 %; Mean Corpuscular Hemoglobin 27.9 pg (25-34); Mean Corpuscular Hgb Conc 33.1 g/dL (32-36); Mean Corpuscular Volume 84.1 fL (80-100); Mean Platelet Volume 9.9 fL (7.4-10.4); Monocytes # (auto) 0.55 K/uL (0.11-0.59); Monocytes % (auto) 7.1 %; Neutrophils # (auto) 6.05 K/uL (1.4-6.5); Neutrophils % (auto) 77.9 %; Platelet Count 175 K/uL (130-400); RDW Coefficient of Variation 14.9 % (11.5-14.5); RDW Standard Deviation 46.2 fL (36.4-46.3); Red Blood Count 4.02 M/uL (4.2-5.4); White Blood Count 7.76 K/uL (4.8-10.8)
[2020-10-28 07:47] LABS: BUN Creatinine Ratio 19.2 (10-20); Creatinine Clr Calc Pharmacy 37.7 ml/min; Est GFR (African American) 67.1 ml/min; Est GFR (Non-African American) 57.9 ml/min; Potassium 3.9 mmol/L (3.5-5.1)
--- NOTE | 2020-10-28 08:36 | Cardiology Consultation ---
Date of Consultation October 28, 2020 Assessment & Plan (1) Acute hypotension: (2) SOB (shortness of breath): (3) COPD (chronic obstructive pulmonary disease): (4) LBBB (left bundle branch block): (5) Tachycardia-bradycardia syndrome: (6) Paroxysmal atrial fibrillation: Active UTI +/- sepsis, will defer treatment to primary team will ask device rep to reprogam device on 10/29 History of Present Illness Reason for Consultation: palpitations Requesting Physician: Dr. Chaidez Attending Physician: Yana Álvarez MD History of Present Illness 89 yo female who follows closely with Dr. Bay of our practice presented to ED with complaints of not feeling well. Seen by PCP and found to have UTI, abx started but symptoms of fatigue, abdominal pain and poor appetite persisted. Also noted to have occasional palpitations on outpatient cardiology visit with planned pacer reprogramming scheduled. PMHX: 1. Longstanding hypertension 2. Chronic left bundle branch block 3. History of cerebral carotid artery aneurysm clipping 1988 4. Single episode transient atrial flutter post operatively 1988 5. Hyperlipidemia 6. Cardiac catheterization November 2010 without obstructive coronary disease 7. TIA with transient aphasia June of 2017 8. Paroxysmal atrial fibrillation with hospitalization November 07, 2019 with rapid response 9. 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 March 16, 2020 , [facility] XT DR ABURTO [id number] Allergies Allergy/AdvReac Type Severity Reaction Status Date / Time adhesive Allergy Unknown RASH, Verified 10/27/20 16:31 REDDNESS AT SITE codeine Allergy Unknown RASH, Verified 10/27/20 16:31 SEVERE ITCHING metronidazole Allergy Unknown SEVERE Verified 10/27/20 16:31 YEAST/VAGINAL INFX morphine Allergy Unknown IRREGULAR Verified 10/27/20 16:31 HEART RATE, EXTREME SEDATION propoxyphene AdvReac Unknown A-FIB Verified 10/27/20 16:31 Home Medications Medication Instructions Recorded Confirmed Type atorvastatin 20 mg tablet (Lipitor) 20 mg PO PM 01/30/18 10/27/20 History lisinopril 5 mg tablet 5 mg PO QAM 01/30/18 10/27/20 History melatonin 10 mg tablet 10 mg PO HS PRN tab 10/26/18 10/27/20 History calcium carbonate 600 mg calcium 600 mg PO 3XWK PRN 12/31/19 10/27/20 History (1,500 mg) tablet (Calcium) diphenhydramine HCl 25 mg capsule 25 mg PO HS PRN 12/31/19 10/27/20 History (Sleep Aid (diphenhydramine)) magnesium oxide 400 mg PO QAM 12/31/19 10/27/20 History amoxicillin 500 mg tablet 2,000 mg PO ONCE PRN #4 tab 01/09/20 10/27/20 Rx docusate sodium 100 mg capsule 100 mg PO HS PRN 03/10/20 10/27/20 History (Stool Softener) omega 8-rbb-vzm-fish oil 1,200 mg 2 cap PO BID 03/10/20 10/27/20 History (144 mg-216 mg) capsule (Fish Oil) amiodarone 200 mg tablet 100 mg PO QAM 05/03/20 10/27/20 History apixaban 2.5 mg tablet (Eliquis) 2.5 mg PO BID 05/03/20 10/27/20 History glucosamine sulf dipot 2 cap PO QAM 05/03/20 10/27/20 History chlr,msm,chond 550 mg-C 30 mg-yennifer 1 mg capsule (Glucosamine Chondroitin) metoprolol tartrate 25 mg tablet 25 - 50 mg PO BID 05/03/20 10/27/20 History pantoprazole 40 mg tablet,delayed 40 mg PO QAM 05/03/20 10/27/20 History release magnesium hydroxide 400 mg/5 mL 15 ml PO DAILY PRN 05/25/20 10/27/20 History oral suspension (Milk of Magnesia) amoxicillin 500 mg capsule 500 mg PO TID 10/27/20 10/27/20 History nitrofurantoin 100 mg PO BID 10/27/20 10/27/20 History monohydrate/macrocrystals 100 mg capsule Patient History Medical History 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 Bay History of lung cancer 1993- s/p RUL lung resection History of trigger finger multiple to both hands Hyperlipidemia Hypertension Longstanding LBBB (left bundle branch block) Chronic per cardio records Pacemaker Placed Mar 16, 2020> [facility] > follows Dr. 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 Bay TIA (transient ischemic attack) no further issues > 2018 > doesn't follow neuro Surgical History H/O section x1 H/O hemorrhoidectomy H/O ultrasound guided needle biopsy of lung History of cardiac cath 2010 - no obstructive CAD History of carpal tunnel release bilat History of cataract surgery bilat History of colon resection 8 inches > 2001 History of colonoscopy History of hysterectomy History of lung surgery 1993 > RUL > due to cancer > no chemo/radiation History of right shoulder replacement reverse History of spinal surgery Hx of cholecystectomy Hx of exploratory thoracotomy Family History Aunt Diabetes Other Abdominal aortic aneurysm Stroke Social History Smoking Status: Never smoker Second Hand Exposure: No; Hx Alcohol Use: Yes Alcohol type: wine and hard liquor Hx Substance Use: No Preferred Language: Indonesian Communication Ability: Effective Air Chipper Required: No Beliefs That Will Affect Care: None marital status: Current Living Situation: Spouse Other Information That Helps Us Care for You: No Feels Safe at Home: Yes Safety Concerns: Feels Safe At This Time Assistive Devices: Glasses Physical Exam Physical Exam: General: Awake, alert and oriented x 3. No acute distress. HEENT: Normocephalic, atraumatic. Pupils equal, round and reactive to light and accommodation. Extraocular muscles are intact. Anicteric sclera. Moist mucous membranes. Neck: No JVD. No bruit. Cardiovascular: Regular. Positive S-4. Normal S-1 and S-2. No S-3. No murmurs or rubs. Pulmonary: Clear to auscultation B/L. No rales, rhonchi or wheezing Abdomen: Bowel sounds x 4, soft. No rebound, guarding or tenderness. No organomegaly. Extremities: No clubbing, cyanosis or edema. +2 pedal pulses bilaterally. Skin: Warm and dry. Results & Data ([facility]) Vital Signs (Past 12 Hours) Vital Signs Temp Pulse Pulse Resp BP BP Pulse Ox 10/28/20 08:05 36.6 C 70 19 106/53 L 97 10/28/20 03:35 36.7 C 70 17 97/48 L 95 10/27/20 22:52 37.1 C 71 20 114/59 L 94 10/27/20 22:00 69 23 99/55 L 95 10/27/20 21:30 69 24 108/44 L 95 10/27/20 21:00 69 15 103/51 L 94 Diagnostic Findings Echocardiogram March 01, 2020 personally reviewed Mild left hypertrophy with preserved LV systolic function Moderate aortic sclerosis without stenosis Pacemaker interrogation August 27, 2020 Normal device function without recurrence of atrial arrhythmias 85% atrial pacing Repeat interrogation today July 06, 2020 Atrial paced 93 I had the % no arrhythmias
[2020-10-28] MEDS: PANTOprazole 40 MG TAB PO SCH (08:48)
[2020-10-28] MEDS: APIXABAN 2.5 MG TAB PO SCH ×2 (08:48→20:01)
[2020-10-28] MEDS: AMIODARONE 200 MG TAB PO SCH (08:48)
--- NOTE | 2020-10-28 08:52 | CT Scan Report ---
CHEST CT WITH CONTRAST; CT ABDOMEN AND PELVIS WITH IV CONTRAST ONLY CT DOSE: 448.26 mGy.cm HISTORY: Acute shortness of breath with chronic cough. Acute generalized abdominal pain. chronic coug h, sob TECHNIQUE: Multiaxial CT images of the chest, abdomen and pelvis were performed following the IV admi nistration of 94 cc of Optiray. A dose lowering technique was utilized adhering to the principles o f ALARA. COMPARISON: chest CT 04/19/2019, CT abdomen pelvis 03/11/2020 FINDINGS: CHEST CT: 1.4 cm right thyroid nodule. Mildly prominent nonenlarged paratracheal lymph nodes are unchanged. Hea rt is normal in size without pericardial effusion. Extensive coronary artery calcifications. Left sub clavian pacer. Atherosclerosis of the aorta without aneurysm. The opacified pulmonary artery is unrem arkable. Trace left pleural effusion with dependent left lung base consolidation. Mild intralobular septal thi ckening. Postoperative changes of prior right upper lobectomy. Numerous bilateral solid and some jorge d pulmonary nodules are redemonstrated. This includes a spiculated 9 x 8 mm solid nodule of the right middle lobe on image 64 which appears stable in size dating back to the 2013 comparison however has demonstrated progressive spiculation over the years and appears generally stable from 04/19/2019. 6 mm solid nodule of the right middle lobe on image 166 is unchanged. 7 mm subsolid nodule of the right lo wer lobe on image 110 is unchanged. 5 mm subsolid nodule of the left lower lobe on image 181 is stabl e. No definite new or enlarging pulmonary nodules are identified. Subpleural scarring of the right sera ng base. Central airways are patent. Unremarkable soft tissues. Degenerative changes of the spine and left shoulder. Right shoulder arthro plasty. CT ABDOMEN/PELVIS: No pneumatosis or pneumoperitoneum. The spleen, moderately atrophic pancreas and right adrenal gland are unremarkable. Unchanged 1.5 cm left adrenal gland nodule. Cholecystectomy. Unremarkable liver. Un changed 11 mm cyst of the inferior pole left kidney. No definite renal or ureteral calculi or hydrone phrosis. Unremarkable urinary bladder. Hysterectomy. Atherosclerosis of the aorta without aneurysm. N o adenopathy. Mild distal esophageal wall thickening. No bowel obstruction or bowel wall thickening. Partial sigmoid colon resection with colocolonic anastomosis. Colonic diverticulosis. Normal appendix . No ascites or mesenteric inflammation. Unremarkable soft tissues. No acute fracture. IMPRESSION: 1. Findings suggestive of mild pulmonary edema. 2. Trace left pleural effusion with dependent consolidation of the left lung base suggestive of compr essive atelectasis. Pneumonia considered less likely. 3. Bilateral solid and subsolid pulmonary nodules as detailed above are stable from 04/19/2019. The dom inant spiculated nodule of the right middle lobe measuring up to 9 mm has not significantly changed i n size dating back to 2013. 4. No acute intra-abdominal or intrapelvic abnormality. 5. Colonic diverticulosis. 6. Additional findings as above. ACT 112: Negative or not required by law. Electronically signed by: Chacho Schrader M.D. 10/28/2020 8:51 AM
[2020-10-28] MEDS ORDERED: METOPROLOL TARTRATE 50 MG TAB PO SCH (09:00)
--- NOTE | 2020-10-28 09:37 | Electrocardiogram Report ---
Test Reason : Blood Pressure : / mmHG Vent. Rate : 066 BPM Atrial Rate : 066 BPM P-R Int : 162 ms QRS Dur : 154 ms QT Int : 498 ms P-R-T Axes : 053 -41 086 degrees QTc Int : 522 ms Poor data quality, interpretation may be adversely affected Normal sinus rhythm Left axis deviation Left bundle branch block Abnormal ECG When compared with ECG of 17-MAR-2020 09:00, No significant change was found Confirmed by Thang Roy ([id number]) on 10/28/2020 9:36:54 AM Referred By: REFERRED SELF Confirmed By:Thang Roy
--- NOTE | 2020-10-28 13:22 | XRay Report ---
XR chest 1V portable HISTORY: Shortness of breath. COMPARISON: Chest 10/27/2020. FINDINGS: No pneumothorax. Small bilateral pleural effusions and bibasilar densities have progressed. There is mild central pulmonary vascular congestion without overt edema. The heart is borderline enl arged. There is a left-sided pacemaker and a right shoulder prosthesis. Mild emphysema. IMPRESSION: Interval progression of the mild pulmonary vascular congestion, small bilateral pleural effusions, an d bibasilar densities. ACT 112: Negative or not required by law. Electronically signed by: Elliot Singh M.D. 10/28/2020 1:21 PM
--- NOTE | 2020-10-28 17:21 | Hospitalist Progress Note ---
Date of Service October 28, 2020 Assessment & Plan (1) SOB (shortness of breath): Plan: Present on admission with pain and worsening shortness of breath with exertion CXR showed no pneumothorax, large pleural effusion or overt pulmonary edema. Mild blunting of the costophrenic angles suggestive of atelectasis. Repeat CXR showed interval progression of the mild pulmonary vascular congestion, small bilateral pleural effusions, and bibasilar densities. Lasix 10mg x1 given Continue monitor closely Hypotension Possible related to recent UTI and poor oral intake due to recent abx with macrobid Received IV fluid Continue to hold lisinopril BP stable does not require any pressor UTI Urine cx grew Lactose fermenting GNR She was initially started on Macrobid but was not able to tolerated Started on cefepime IV twice daily We will follow outpatient urine culture P. Afib Pacemaker placement on 03/16/2020 Continue amiodarone and metoprolol 50 mg in the morning and 25 mg at night Continue [facility] Cardiology on board CHRONIC DIASTOLIC CHF Will give a low dose of Lasix HISTORY OF TIA [facility] CODE STATUS: Full code DVT prophylaxis: [facility] Admission and Anticipated Discharge Date Admission Date: October 27, 2020 Subjective Patient was seen and examined for follow-up of shortness of breath Lying in bed complaining of shortness of breath Patient said that she was having palpitation with a pressure in her chest Stat EKG, chest x-ray and troponin done showed no significant ischemic changes Review of Systems Review of Systems: All systems reviewed & are unremarkable except as noted in Subjective Physical Exam Physical Exam: General- No acute distress Head- atraumatic Eyes- PERRL, EOMI, ENT- oropharynx clear Neck- supple, no JVD Lungs- clear to auscultation Heart- regular rhythm; +murmur Abdomen- normal bowel sounds, soft, nontender Extremities- no calf tenderness Neuro- alert, oriented x 3; PERRL, EOMI; no facial palsy; no dysarthria Skin- warm & dry. Results & Data Results & Data ([facility]) Vital Signs (Past 12 Hours) Vital Signs Temp Pulse Pulse Pulse Resp BP Pulse Ox 10/28/20 16:45 36.6 C 71 19 114/61 93 10/28/20 12:20 36.7 C 71 21 100/57 L 98 10/28/20 12:06 71 142/56 H 99 10/28/20 08:05 36.6 C 70 19 106/53 L 97 10/28/20 08:00 71
[2020-10-28] MEDS ORDERED: FUROSEMIDE 10 MG in SYRINGE 0 ML IV ONE (17:45)
[2020-10-28] MEDS ORDERED: CEFEPIME 2,000 MG in SYRINGE 0 ML IV SCH (20:00)
[2020-10-28] MEDS: ATORVASTATIN 20 MG TAB PO SCH (20:01)
[2020-10-28] MEDS ORDERED: METOPROLOL TARTRATE 25 MG TAB PO SCH (21:00)
[2020-10-28] MEDS ORDERED: METOPROLOL TARTRATE 1 MG/ML VIAL IV STA (23:29)
[2020-10-28] MEDS ORDERED: POTASSIUM CHLORIDE CRTAB 20 MEQ TABCR PO STA (23:36)
[2020-10-28] MEDS ORDERED: traMADol HCL 50 MG TABLET PO STA (23:50)
[2020-10-29] MEDS ORDERED: METOPROLOL TARTRATE 25 MG TAB PO STA (00:03)
[2020-10-29] MEDS ORDERED: FUROSEMIDE 20 MG in SYRINGE 0 ML IV ONE (00:10)
[2020-10-29] MEDS ORDERED: methylPREDNISolone 20 MG in SYRINGE 0 ML IV STA (00:17)
[2020-10-29] MEDS ORDERED: ALBUMIN 25% 12.5 GM/50 ML VIAL IV ONE ×2 (00:30→01:20)
[2020-10-29] MEDS ORDERED: FUROSEMIDE 40 MG/4 ML VIAL IV ONE (00:30)
[2020-10-29] MEDS ORDERED: DIGOXIN 250 MCG in SYRINGE 9 ML IV STA (00:41)
[2020-10-29] MEDS ORDERED: METOPROLOL TARTRATE 1 MG/ML VIAL IV STA (00:42)
[2020-10-29 00:48] LABS: BUN Creatinine Ratio 16.6 (10-20); Calcium 8.3 mg/dl (8.5-10.1); Creatinine Clr Calc Pharmacy 41.5 ml/min; Est GFR (African American) 75.2 ml/min; Est GFR (Non-African American) 64.8 ml/min; Potassium 3.5 mmol/L (3.5-5.1)
[2020-10-29] MEDS ORDERED: POTASSIUM CHLORIDE CRTAB 20 MEQ TABCR PO STA (01:15)
[2020-10-29] MEDS ORDERED: dilTIAZem HCl 5 MG/ML 5 ML VIAL IV STA (01:19)
--- NOTE | 2020-10-29 06:46 | CT Scan Report ---
CT head/brain wo con CLINICAL HISTORY: 89 years-old Female with denise. Acute headache TECHNIQUE: Multiple axial CT images of the head were obtained without contrast. A dose lowering tech nique was utilized adhering to the principles of ALARA. CT DOSE: 537.48 mGy.cm COMPARISON: Head CT 02/29/2020 FINDINGS: No acute intracranial hemorrhage, midline shift, intracranial mass, hydrocephalus, territorial ischem ia or abnormal extra-axial collection. Aneurysm clips are noted within the left sylvian cistern. Whit e matter hypodensities suggestive of chronic microvascular ischemic disease. The calvarium is intact. Prior bilateral lens repair. The paranasal sinuses, mastoid air cells, and m iddle ear cavities are clear. IMPRESSION: No acute intracranial abnormality. ACT 112: Negative or not required by law. The above report was generated using voice recognition software. It may contain grammatical, syntax o r spelling errors. Electronically signed by: Chacho Schrader M.D. 10/29/2020 6:45 AM
--- NOTE | 2020-10-29 08:17 | XRay Report ---
XR chest 1V portable CLINICAL HISTORY: cough COMPARISON STUDY: Chest CT October 27, 2020. Chest radiograph October 28, 2020. FINDINGS: A dual-lead left pacemaker is in place. Right shoulder arthroplasty is partially imaged. Ca rdiomediastinal silhouette is stable. There are small bilateral pleural effusions. Mild pulmonary sima ma persists. Right upper lung nodule is better depicted on recent chest CT. IMPRESSION: Persistent mild pulmonary edema with small bilateral pleural effusions. ACT 112: Negative or not required by law. Electronically signed by: Isai Troy M.D. 10/29/2020 8:15 AM
[2020-10-29] MEDS: PANTOprazole 40 MG TAB PO SCH (08:30)
[2020-10-29] MEDS: METOPROLOL TARTRATE 25 MG TAB PO SCH ×2 (08:31→20:01)
[2020-10-29] MEDS: APIXABAN 2.5 MG TAB PO SCH ×2 (08:31→20:02)
[2020-10-29] MEDS: AMIODARONE 200 MG TAB PO SCH (08:31)
--- NOTE | 2020-10-29 15:06 | Electrocardiogram Report ---
Test Reason : Blood Pressure : / mmHG Vent. Rate : 085 BPM Atrial Rate : 076 BPM P-R Int : 174 ms QRS Dur : 154 ms QT Int : 436 ms P-R-T Axes : 072 -47 098 degrees QTc Int : 518 ms Sinus rhythm with Premature supraventricular complexes atrial-paced complexes Left axis deviation Left bundle branch block Abnormal ECG When compared with ECG of 27-OCT-2020 16:35, Premature supraventricular complexes are now Present Confirmed by Paulo Woodward ([id number]) on 10/29/2020 3:06:14 PM Referred By: REFERRED SELF Confirmed By:Paulo Woodward
--- NOTE | 2020-10-29 15:37 | Electrocardiogram Report ---
Test Reason : Blood Pressure : / mmHG Vent. Rate : 124 BPM Atrial Rate : 147 BPM P-R Int : 000 ms QRS Dur : 144 ms QT Int : 394 ms P-R-T Axes : 000 -51 093 degrees QTc Int : 566 ms Atrial fibrillation with rapid ventricular response Left axis deviation Left bundle branch block Abnormal ECG When compared with ECG of 28-OCT-2020 12:17, (unconfirmed) Atrial fibrillation has replaced Sinus rhythm Confirmed by Paulo Woodward ([id number]) on 10/29/2020 3:36:52 PM Referred By: REFERRED SELF Confirmed By:Paulo Woodward
--- NOTE | 2020-10-29 15:37 | Cardiology Progress Note ---
Date of Service October 29, 2020 Assessment & Plan (1) Acute hypotension: (2) SOB (shortness of breath): (3) COPD (chronic obstructive pulmonary disease): (4) LBBB (left bundle branch block): (5) Tachycardia-bradycardia syndrome: (6) Paroxysmal atrial fibrillation: Plan: Active UTI +/- sepsis, will defer treatment to primary team Interrogation reveals an appropriately functioning device without pacemaker mediated tachycardia. Patient reassured. Okay to DC to home from a cardiac standpoint without medication changes. Admission and Anticipated Discharge Date Admission Date: October 27, 2020 Subjective Patient seen and examined, chart reviewed. States that she had a coughing spell last night after choking on a pill otherwise feeling well. Denies chest pain, shortness of breath, palpitations, lightheadedness, dizziness or syncope. Telemetry reviewed: atrially paced rhythm. Review of Systems Review of Systems: All systems reviewed & are unremarkable except as noted in HPI & below Physical Exam Physical Exam: General: Awake, alert and oriented x 3. No acute distress. HEENT: Normocephalic, atraumatic. Pupils equal, round and reactive to light and accommodation. Extraocular muscles are intact. Anicteric sclera. Moist mucous membranes. Neck: No JVD. No bruit. Cardiovascular: Regular. Positive S-4. Normal S-1 and S-2. No S-3. No murmurs or rubs. Pulmonary: Clear to auscultation B/L. No rales, rhonchi or wheezing Abdomen: Bowel sounds x 4, soft. No rebound, guarding or tenderness. No organomegaly. Extremities: No clubbing, cyanosis or edema. +2 pedal pulses bilaterally. Skin: Warm and dry. Results & Data ([facility]) Vital Signs (Past 12 Hours) Vital Signs Temp Pulse Pulse Resp BP Pulse Ox Pulse Ox 10/29/20 14:14 96 10/29/20 10:50 36.5 C 63 18 101/43 L 92 10/29/20 08:00 64 10/29/20 07:52 36.7 C 65 18 109/58 L 93
[2020-10-29] MEDS: AMOXICILLIN/CLAVULANATE 500 MG TAB PO SCH (16:47)
[2020-10-29] MEDS: ATORVASTATIN 20 MG TAB PO SCH (20:02)
[2020-10-29] MEDS ORDERED: COUGH DROP (SUGAR FREE) LOZ 24 LOZ/1 BOX BUCCAL STA (21:36)
[2020-10-29] MEDS ORDERED: COUGH DROP (SUGAR FREE) LOZ 24 LOZ/1 BOX BUCCAL ONE (21:39)
--- NOTE | 2020-10-29 23:18 | Hospitalist Progress Note ---
Date of Service October 29, 2020 Assessment & Plan (1) SOB (shortness of breath): Plan: Present on admission with pain and worsening shortness of breath with exertion CXR showed no pneumothorax, large pleural effusion or overt pulmonary edema. Mild blunting of the costophrenic angles suggestive of atelectasis. Repeat CXR showed interval progression of the mild pulmonary vascular congestion, small bilateral pleural effusions, and bibasilar densities. Lasix IV given last night Clinically improved significantly Continue monitor closely Hypotension Possible related to recent UTI and poor oral intake due to recent abx with macrobid Received IV fluid Continue to hold lisinopril Resolved UTI Urine cx grew Lactose fermenting GNR-Klebsiella She was initially started on Macrobid but was not able to tolerated We will change IV cefepime to amoxicillin P. Afib Pacemaker placement on 03/16/2020 Status post pacemaker interrogation suggested an appropriately functioning device without pacemaker mediated tachycardia. Continue amiodarone and metoprolol 50 mg in the morning and 25 mg at night Continue [facility] Cardiology on board Okay from cardiology standpoint to discharge home follow-up CHRONIC DIASTOLIC CHF Will give a low dose of Lasix HISTORY OF TIA Eliquis CODE STATUS: Full code DVT prophylaxis: Siria Disposition unable to come to get her today, Plan to discharge home tomorrow Admission and Anticipated Discharge Date Admission Date: October 27, 2020 Subjective Patient was seen and examined for follow-up of shortness of breath Lying in bed with no acute distress Patient said she feels wonderful today She said that she was able to walk in the hallway with therapy She said she is not having any breathing problem She is very anxious to go home today I spoke to her over the phone and answered all his questions would like to speak with case management to help getting some services at home when discharge Denies any chest pain, palpitation, dizziness, shortness of breath. Review of Systems Review of Systems: All systems reviewed & are unremarkable except as noted in Subjective Physical Exam Physical Exam: General- No acute distress Head- atraumatic Eyes- PERRL, EOMI, ENT- oropharynx clear Neck- supple, no JVD Lungs- clear to auscultation Heart- regular rhythm; +murmur Abdomen- normal bowel sounds, soft, nontender Extremities- no calf tenderness Neuro- alert, oriented x 3; PERRL, EOMI; no facial palsy; no dysarthria Skin- warm & dry. Results & Data Results & Data ([facility]) Vital Signs (Past 12 Hours) Vital Signs Temp Pulse Pulse Pulse Resp BP Pulse Ox 10/29/20 22:00 10/29/20 19:59 36.8 C 72 18 141/62 H 95 10/29/20 16:03 68 10/29/20 15:31 36.8 C 64 18 116/56 L 97 10/29/20 14:14 Pulse Ox Pulse Ox 10/29/20 22:00 95 10/29/20 19:59 10/29/20 16:03 10/29/20 15:31 10/29/20 14:14 96
[2020-10-30] MEDS: AMOXICILLIN/CLAVULANATE 500 MG TAB PO SCH (07:43)
[2020-10-30] MEDS: AMIODARONE 200 MG TAB PO SCH (08:22)
[2020-10-30] MEDS: METOPROLOL TARTRATE 25 MG TAB PO SCH (08:22)
[2020-10-30] MEDS: PANTOprazole 40 MG TAB PO SCH (08:22)
[2020-10-30] MEDS: APIXABAN 2.5 MG TAB PO SCH (08:22)
--- NOTE | 2020-10-30 12:57 | Hospitalist Progress Note ---
Date of Service October 30, 2020 Assessment & Plan (1) SOB (shortness of breath): Plan: Present on admission with pain and worsening shortness of breath with exertion CXR showed no pneumothorax, large pleural effusion or overt pulmonary edema. Mild blunting of the costophrenic angles suggestive of atelectasis. Repeat CXR showed interval progression of the mild pulmonary vascular congestion, small bilateral pleural effusions, and bibasilar densities. Lasix IV given last night Clinically improved significantly case discussed with cardiology about diuretic on discharge, but suggest for prn only with symptoms of SOB Continue monitor closely Hypotension Possible related to recent UTI and poor oral intake due to recent abx with macrobid Received IV fluid Continue to hold lisinopril Will decrease Lisinopril to 2.5 mg on discharge Resolved UTI Urine cx grew Lactose fermenting GNR-Klebsiella She was initially started on Macrobid but was not able to tolerated IV cefepime to amoxicillin Script sent for Amoxicillin to complete the course P. Afib Pacemaker placement on 03/16/2020 Status post pacemaker interrogation suggested an appropriately functioning device without pacemaker mediated tachycardia. Continue amiodarone and metoprolol 50 mg in the morning and 25 mg at night Continue [facility] Cardiology on board Okay from cardiology standpoint to discharge home follow-up CHRONIC DIASTOLIC CHF CXR showed Persistent mild pulmonary edema with small bilateral pleural effusions. Lasix IV 20mg x2 and 10mg x1 given during the hopital course case discussed with cardiology about diuretic on discharge, but suggest for prn only with symptoms of SOB HISTORY OF TIA CT head done showed no acute intracranial abnormality Eliquis CODE STATUS: Full code DVT prophylaxis: Eliquis Disposition unable to come to get her today, Plan to discharge home with today Admission and Anticipated Discharge Date Admission Date: October 27, 2020 Subjective Patient was seen and examined for follow-up of shortness of breath Sitting in chair with no acute distress eating lunch Patient said she feels good Denies any chest pain, palpitation, dizziness, shortness of breath. Review of Systems Review of Systems: All systems reviewed & are unremarkable except as noted in Subjective Physical Exam Physical Exam: General- No acute distress Head- atraumatic Eyes- PERRL, EOMI, ENT- oropharynx clear Neck- supple, no JVD Lungs- clear to auscultation Heart- regular rhythm; +murmur Abdomen- normal bowel sounds, soft, nontender Extremities- no calf tenderness Neuro- alert, oriented x 3; PERRL, EOMI; no facial palsy; no dysarthria Skin- warm & dry. Results & Data Results & Data ([facility]) Vital Signs (Past 12 Hours) Vital Signs Temp Pulse Resp BP Pulse Ox 10/30/20 11:49 36.5 C 60 18 126/63 96 10/30/20 07:45 36.5 C 62 20 131/57 L 94 10/30/20 04:09 36.8 C 60 18 98/51 L 94
--- NOTE | 2020-10-30 14:21 | Cardiology Progress Note ---
Date of Service October 30, 2020 Assessment & Plan (1) Acute hypotension: (2) SOB (shortness of breath): (3) COPD (chronic obstructive pulmonary disease): (4) LBBB (left bundle branch block): (5) Tachycardia-bradycardia syndrome: (6) Paroxysmal atrial fibrillation: Plan: Active UTI +/- sepsis, will defer treatment to primary team Interrogation reveals an appropriately functioning device without pacemaker mediated tachycardia. Patient reassured. Okay to DC to home from a cardiac standpoint without medication changes. Admission and Anticipated Discharge Date Admission Date: October 27, 2020 Subjective Patient seen and examined, chart reviewed. States that she is feeling much better now and palpitations resolved. Denies chest pain, shortness of breath, lightheadedness, dizziness or syncope. Review of Systems Review of Systems: All systems reviewed & are unremarkable except as noted in HPI & below Physical Exam Physical Exam: General: Awake, alert and oriented x 3. No acute distress. HEENT: Normocephalic, atraumatic. Pupils equal, round and reactive to light and accommodation. Extraocular muscles are intact. Anicteric sclera. Moist mucous membranes. Neck: No JVD. No bruit. Cardiovascular: Regular. Positive S-4. Normal S-1 and S-2. No S-3. No murmurs or rubs. Pulmonary: Clear to auscultation B/L. No rales, rhonchi or wheezing Abdomen: Bowel sounds x 4, soft. No rebound, guarding or tenderness. No organomegaly. Extremities: No clubbing, cyanosis or edema. +2 pedal pulses bilaterally. Skin: Warm and dry. Results & Data ([facility]) Vital Signs (Past 12 Hours) Vital Signs Temp Pulse Resp BP Pulse Ox 10/30/20 11:49 36.5 C 60 18 126/63 96 10/30/20 07:45 36.5 C 62 20 131/57 L 94 10/30/20 04:09 36.8 C 60 18 98/51 L 94
== END 2020-10-30 13:30 | disposition home health service (06) | DRG 315 ==
LOC: ED 15:31 → 2S 21:31

== ENCOUNTER 2021-09-04 04:29 | Observation (INO) ==
[2021-09-04] MEDS ORDERED: ONDANSETRON INJ 2 MG/ML 2 ML VIAL IV STA (04:41)
[2021-09-04] MEDS ORDERED: fentaNYL citrate 100 MCG/2 ML VIAL IV PRN (04:41)
[2021-09-04] MEDS ORDERED: SODIUM CHLORIDE 0.9% 1000ML 500 ML IV ONE (04:44)
[2021-09-04 04:51] LABS: Basophils # (auto) 0.03 K/uL (0-0.2); Basophils % (auto) 0.4 %; Eosinophils # (auto) 0.08 K/uL (0-0.50); Eosinophils % (auto) 1.1 %; Hematocrit (blood only) 39.2 % (34.1-44.9); Hemoglobin 13.2 g/dl (12.0-16.0); Immature Granulocytes # (auto) 0.06 K/uL (0.00-0.02); Immature Granulocytes % (auto) 0.8 %; Lymphocytes # (auto) 2.28 K/uL (1.2-3.4); Lymphocytes % (auto) 32.2 %; Mean Corpuscular Hemoglobin 28.1 pg (25.0-34.0); Mean Corpuscular Hgb Conc 33.7 g/dL (32.0-36.0); Mean Corpuscular Volume 83.6 fL (80.0-100.0); Monocytes # (auto) 0.34 K/uL (0.24-0.82); Monocytes % (auto) 4.8 %; Neutrophils # (auto) 4.29 K/uL (1.4-6.5); Neutrophils % (auto) 60.7 %; Platelet Count 241 K/uL (130-400); RDW Standard Deviation 42.8 fL (36.4-46.3); Red Blood Count 4.69 M/uL (3.93-5.22); White Blood Count 7.08 K/ul (4.8-10.8)
[2021-09-04 04:57] LABS: iSTAT Creatinine 0.8 mg/dl (0.6-1.3); iSTAT Hemoglobin 12.9 g/dl (12.0-16.0); iSTAT Ionized Calcium 1.22 mmol/l (1.12-1.32); iSTAT Potassium 3.8 mmol/L (3.3-5.0)
[2021-09-04 05:07] LABS: Prothrombin Time 10.8 Seconds (9.0-12.0)
[2021-09-04 05:18] LABS: Albumin Globulin Ratio 1.6 (0.9-2); Albumin Level 4.1 gm/dl (3.4-5.0); BUN Creatinine Ratio 18.1 (10-20); Bilirubin,Total 0.9 mg/dl (0.2-1.0); Calcium 8.8 mg/dl (8.5-10.1); Creatinine Clr Calc Pharmacy 38.9 ml/min; Est GFR (African American) 62.3 ml/min; Est GFR (Non-African American) 53.8 ml/min; Globulin 2.5 gm/dl (2.5-4.0); Potassium 3.8 mmol/L (3.5-5.1); Total Protein 6.6 gm/dl (6.0-8.3)
[2021-09-04 05:20] LABS: Troponin I High Sensitivity 13.3 pg/ml (0-14)
[2021-09-04] MEDS ORDERED: PROMETHAZINE 12.5 MG/50.5 ML BAG IV STA (05:31)
--- NOTE | 2021-09-04 06:15 | Emergency Department Note ---
History of Present Illness General Chief complaint: Abdominal Pain Stated complaint: Abdominal Pain, Nausea, Vomiting Time Seen by Provider: 09/04/21 04:33 History of Present Illness Maximum Pain Intensity: 10 This 89-year-old female patient presents to the emergency department today via ambulance for evaluation of altered mental status, abdominal pain, nausea, vomiting. The patient initially presents, was unable to provide any history, was moaning throughout examination, and had some vomiting. Unable to obtain any further history. I did reach out to the patient's daughter after evaluating the patient, but did not receive a phone call back for about 1 hour. After I spoke with the patient's daughter, Marianela, , we discussed the history leading up to the events of tonight. The patient's daughter is currently in town for her father's . She is staying at her mother's house and got into town at the house at about 8 PM. She was talking with her mother until about 11 PM at the dinner table and her mother was acting completely normally. She states that about 3 AM, she heard footsteps and some commotion walking around upstairs. Apparently, the patient's , Wilfredo, asked her to get him something. When she got up and out of bed, she immediately developed nausea and began vomiting and dry heaving. She was then found leaning up against a wall and add helping to hold her up. They do not believe there was any fall or trauma, but cannot be 100% certain. The patient's daughter states while she was talking to her mother, she seemed to be having difficulty getting the Kleenex to her mouth. She ultimately did start pointing to her upper abdomen and complaining of pain. She had several episodes of staring at her daughter with a foggy look on her face and eventually exclaimed "help me". The patient does take Eliquis. The patient's daughter states she and Ed both had BLTs for dinner, and he was not feeling any illness. The patient has a history of diverticulosis and diverticulitis as well as dehydration and constipation but the patient's da ughter denies knowledge of similar symptoms in the past associated with these diagnoses. Home Medications Medication Instructions Recorded Confirmed Type lisinopril 5 mg tablet 5 mg PO QAM 01/30/18 09/04/21 History melatonin 10 mg tablet 10 mg PO HS PRN Sleep 10/26/18 09/04/21 History calcium carbonate 600 mg calcium 600 mg PO [id number] PRN takes 12/31/19 09/04/21 History (1,500 mg) tablet (Calcium) sporadically diphenhydramine HCl 25 mg capsule 25 mg PO HS PRN Sleep 12/31/19 09/04/21 History (Sleep Aid (diphenhydramine)) magnesium oxide 400 mg PO QAM 12/31/19 09/04/21 History docusate sodium 100 mg capsule 100 mg PO HS PRN Constipation 03/10/20 09/04/21 History (Stool Softener) omega 1-ydb-qpa-fish oil 1,200 mg 2 cap PO BID 03/10/20 09/04/21 History (144 mg-216 mg) capsule (Fish Oil) amiodarone 200 mg tablet 100 mg PO QAM 05/03/20 09/04/21 History apixaban 2.5 mg tablet (Eliquis) 2.5 mg PO BID 05/03/20 09/04/21 History glucosamine sulf dipot 2 cap PO QAM 05/03/20 09/04/21 History chlr,msm,chond 550 mg-C 30 mg-yennifer 1 mg capsule (Glucosamine Chondroitin) pantoprazole 40 mg tablet,delayed 40 mg PO QAM 05/03/20 09/04/21 History release magnesium hydroxide 400 mg/5 mL 15 ml PO DAILY PRN Constipation 05/25/20 09/04/21 History oral suspension (Milk of Magnesia) furosemide 20 mg tablet (Lasix) 20 mg PO 2XWK PRN sweling and 10/30/20 09/04/21 Rx weight gain #30 tabs metoprolol tartrate 25 mg tablet 25 mg PO BID #0 tabs 10/30/20 09/04/21 Rx Allergies Allergy/AdvReac Type Severity Reaction Status Date / Time adhesive Allergy Unknown RASH, Verified 04/29/21 10:30 REDDNESS AT SITE codeine Allergy Unknown RASH, Verified 04/29/21 10:30 SEVERE ITCHING metronidazole Allergy Unknown SEVERE Verified 04/29/21 10:30 YEAST/VAGINAL INFX morphine Allergy Unknown IRREGULAR Verified 04/29/21 10:30 HEART RATE, EXTREME SEDATION propoxyphene AdvReac Unknown A-FIB Verified 04/29/21 10:30 Past Med/Surg History Medical History (Updated 09/04/21 @ 14:32 by Sj Bay MD) 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 Bay History of lung cancer 1993- s/p RUL lung resection History of trigger finger multiple to both hands Hyperlipidemia Hypertension Longstanding LBBB (left bundle branch block) Chronic per cardio records Pacemaker Placed Mar 16, 2020> [facility] > follows Dr. 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 Bay SOB (shortness of breath) TIA (transient ischemic attack) no further issues > 2017 > doesn't follow neuro Surgical History H/O section x1 H/O hemorrhoidectomy H/O ultrasound guided needle biopsy of lung History of cardiac cath 2010 - no obstructive CAD History of carpal tunnel release bilat History of cataract surgery bilat History of colon resection 8 inches > 2001 History of colonoscopy History of hysterectomy History of lung surgery 1993 > RUL > due to cancer > no chemo/radiation History of right shoulder replacement reverse History of spinal surgery Hx of cholecystectomy Hx of exploratory thoracotomy Family History Aunt Diabetes Other Abdominal aortic aneurysm Stroke Social History Smoking Status: Never smoker Second Hand Exposure: No; Tobacco Cessation Education Requested by Patient: No Hx Alcohol Use: No Hx Substance Use: No Preferred Language: Divehi Communication Ability: Effective Visual Impairment: Limited Hearing Ability: Hard of Hearing Occupational Therapy Professor Required: No Beliefs That Will Affect Care: None marital status: Current Living Situation: Spouse How many Children do You have: 1 Other Information That Helps Us Care for You: No Feels Safe at Home: Yes Safety Concerns: Feels Safe At This Time Assistive Devices: None Review of Systems A total of 10 systems reviewed and were otherwise negative Physical Exam Vital Signs Vital Signs - 24 hr 09/04/21 04:45 09/04/21 04:38 09/04/21 06:16 Temperature 37.2 C Temperature Source Oral Pulse Rate 87 87 90 Pulse Rate from SpO2 Sensor 88 90 Pulse Rhythm Regular Pulse Strength Normal Respiratory Rate 18 25 H 16 Respiratory Effort / Characteristics Non-Labored Spontaneous Respiratory Depth Normal Respiratory Pattern Regular Blood Pressure 165/60 H 165/60 H 131/83 Blood Pressure Mean 95 95 99 Blood Pressure Position Sitting Pulse Oximetry 95 96 93 Oxygen Delivery Method Room Air Room Air Room Air Sepsis Recent Fever Within 48 Hours No Sepsis New/Unexplained Change in Mental Status N/A Sepsis Action Taken by Nursing No Action Required 09/04/21 07:00 09/04/21 07:10 09/04/21 07:10 Temperature Temperature Source Pulse Rate 80 81 Pulse Rate from SpO2 Sensor Pulse Rhythm Pulse Strength Respiratory Rate 15 16 Respiratory Effort / Characteristics Respiratory Depth Respiratory Pattern Blood Pressure 129/82 Blood Pressure Mean 97 Blood Pressure Position Pulse Oximetry 97 Oxygen Delivery Method Sepsis Recent Fever Within 48 Hours Sepsis New/Unexplained Change in Mental Status Sepsis Action Taken by Nursing 09/04/21 07:30 09/04/21 08:00 Temperature Temperature Source Pulse Rate 79 72 Pulse Rate from SpO2 Sensor Pulse Rhythm Pulse Strength Respiratory Rate 20 15 Respiratory Effort / Characteristics Respiratory Depth Respiratory Pattern Blood Pressure Blood Pressure Mean Blood Pressure Position Pulse Oximetry Oxygen Delivery Method Sepsis Recent Fever Within 48 Hours Sepsis New/Unexplained Change in Mental Status Sepsis Action Taken by Nursing VITALS: Vitals are noted on the nurse's note and reviewed by myself. Vital signs stable. GENERAL: This is an 89-year-old white female, moaning, apparently in pain, unabl e to identify or localize the pain or communicate with examiner. Pt. is nondiaphoretic, well-developed well-nourished. SKIN: The skin was without rashes, erythema, edema, or bruising. There is no tenting of the skin. Capillary refill less than 2 seconds. HEAD: Normocephalic atraumatic. EARS: External auditory canals clear, tympanic membranes pearly ortiz without erythema or effusion bilaterally. EYES: Pupils equal round and reactive to light and accommodation. Conjunctivae without injection, sclerae without icterus. Extraocular movements intact. NOSE: Patent, turbinates without inflammation or discharge. No sinus tenderness. MOUTH: Mucous membranes moist. Airway patent. Tongue does not deviate. NECK: Supple without nuchal rigidity. No lymphadenopathy. No thyromegaly. Cervical spine is nontender. No JVD. HEART: Regular rate and rhythm without murmurs gallops or rubs. LUNGS: Clear to auscultation bilaterally without wheezes, rales or rhonchi. No retractions or accessory muscle use. ABDOMEN: Positive bowel sounds x 4. Soft, without masses or organomegaly. No obvious specific tenderness to palpation. No guarding or rebound tenderness. MUSCULOSKELETAL: No muscle atrophy, erythema, or edema noted. Full range of motion without joint tenderness in all extremities. No tenderness to palpation. Strength 5/5 throughout. NEURO: Patient was intermittently alert and oriented. Often forgetting time, person, and place. No focal neurological deficits. Course Course The patient was seen and evaluated as above. An order was placed for continuous cardiac monitoring. The monitor shows a normal sinus rhythm at a rate of 87. Attempted to contact patient's daughter. Left a message IV access obtained, labs drawn. Labs reviewed by myself. I was able to speak with the patient's daughter to obtain a more thorough history at this time. Imaging performed. There was a delay with uploading images. The patient was reassessed and confused. The patient was signed out to Luis Campbell PA-C pending CT imaging. Please see his dictation regarding final disposition and plan. Administered Medications Apixaban (Apixaban 2.5 Mg Tab) 2.5 mg PO BID BERNARDINO Stop: 10/04/21 20:59 Last Admin: 09/04/21 20:32 Dose: 2.5 mg Documented By: MANA Docusate Sodium (Docusate Sodium 100 Mg Cap) 100 mg PO HS BERNARDINO Stop: 10/04/21 20:59 Last Admin: 09/04/21 20:32 Dose: 100 mg Documented By: MANA Potassium Chloride/Sodium Chloride (Normal Saline W/20 Meq Kcl) 20 meq in 1,000 mls @ 60 mls/hr IV .[id number] BERNARDINO Stop: 09/05/21 08:39 Last Admin: 09/04/21 16:21 Dose: 60 mls/hr Documented By: LUKAS Metoprolol Tartrate (Metoprolol Tartrate 25 Mg Tab) 25 mg PO BID BERNARDINO Stop: 10/04/21 11:13 Last Admin: 09/04/21 20:33 Dose: Not Given Documented By: Admin: 09/04/21 16:21 Dose: 25 mg Documented By: LUKAS Pantoprazole Sodium (Pantoprazole 40 Mg Tab) 40 mg PO QAM BERNARDINO Stop: 10/04/21 11:13 Last Admin: 09/04/21 16:21 Dose: 40 mg Documented By: LUKAS Discontinued Medications Apixaban (Apixaban 2.5 Mg Tab) 2.5 mg PO ONE ONE Stop: 09/04/21 12:01 Last Admin: 09/04/21 14:05 Dose: 2.5 mg Documented By: MELISSA Fentanyl Citrate (Fentanyl Citrate 100 Mcg/2 Ml Vial) 25 mcg IV Q15M PRN PRN Reason: Pain Stop: 09/18/21 04:40 Last Admin: 09/04/21 05:07 Dose: 25 mcg Documented By: MANDO Heparin Sodium/Dextrose (Heparin 44991 Unit/500 Ml D5w) Confirm Administered Dose 25,000 units IV .STK-MED ONE Stop: 09/04/21 09:49 Last Admin: 09/04/21 10:10 Dose: Not Given Documented By: VERA Sodium Chloride (Nss 1000ml) 500 mls @ 999 mls/hr IV .Q31M ONE Stop: 09/04/21 05:14 Last Infusion: 09/04/21 05:40 Dose: 0 mls/hr Documented By: Admin: 09/04/21 05:08 Dose: 999 mls/hr Documented By: MANDO Promethazine HCl (Phenergan) 12.5 mg in 50.5 mls @ 202 mls/hr IV NOW STA Stop: 09/04/21 05:45 Last Infusion: 09/04/21 05:46 Dose: 0 mls/hr Documented By: Admin: 09/04/21 05:40 Dose: 202 mls/hr Documented By: MANDO Heparin Sodium/Dextrose (Heparin Sodium/Dextrose) 25,000 units in 500 mls @ 15 mls/hr IV .Q24H BERNARDINO; Protocol Stop: 10/04/21 09:44 Last Titration: 09/04/21 10:52 Dose: 0 units/hr, 0 mls/hr Documented By: OZZY Co-signed By: MELISSA Admin: 09/04/21 10:09 Dose: 750 units/hr, 15 mls/hr Documented By: VERA Co-signed By: OZZY Ioversol (Optiray 320 125ml) 125 ml IV ONCE ONE Stop: 09/04/21 06:18 Last Admin: 09/04/21 06:17 Dose: 118 ml Documented By: DASHA Ondansetron HCl (Ondansetron Inj 2 Mg/Ml 2 Ml Vial) 4 mg IV NOW STA Stop: 09/04/21 04:42 Last Admin: 09/04/21 05:07 Dose: 4 mg Documented By: MANDO Medical Decision Making Differential Diagnosis Etiologies such as appendicitis, diverticulitis, obstruction, inflammatory bowel disease, renal colic, PUD, biliary pathology, pancreatitis, mesenteric ischemia, aortic pathology, infections, genitourinary, UTI, perforated viscus, Infection, dehydration, metabolic abnormality, hypo/hyperglycemia, electrolyte disturbance, anemia, hypoxia, cardiac sources, intracerebral event, toxicologic, neurologic, as well as other pathologies. Medical Records Attestation: I reviewed the patient's medical records. Home Medications Current Medication List: was personally reviewed by me Laboratory Data Attestation: I reviewed the patient's lab results. No leukocytosis, anemia, thrombocytopenia. Renal, hepatic function, and electrolytes without significant abnormality. Glucose elevated at 185. INR 1.0. Lactic acid 1.6. Troponin 13.3 Result diagrams: 09/04/21 04:40 09/04/21 04:40 Lab Results 09/04/21 09/04/21 09/04/21 Range/Units 04:40 04:40 04:40 WBC 7.08 (4.8-10.8) K/ul RBC 4.69 (3.93-5.22) M/uL Hgb 13.2 (12.0-16.0) g/dl POC Hgb (12.0-16.0) g/dl Hct 39.2 (34.1-44.9) % POC Hct (37-47) % MCV 83.6 (80.0-100.0) fL MCH 28.1 (25.0-34.0) pg MCHC 33.7 (32.0-36.0) g/dL RDW Std Deviation 42.8 (36.4-46.3) fL RDW Coeff of Coleman 14.0 (11.5-14.5) % Plt Count 241 (130-400) K/uL MPV 9.0 L (9.4-12.3) fL Immature Gran % (Auto) 0.8 % Neut % (Auto) 60.7 % Lymph % (Auto) 32.2 % Posey % (Auto) 4.8 % Eos % (Auto) 1.1 % Baso % (Auto) 0.4 % Neut # (Auto) 4.29 (1.4-6.5) K/uL Lymph # (Auto) 2.28 (1.2-3.4) K/uL [place]y # (Auto) 0.34 (0.24-0.82) K/uL Eos # (Auto) 0.08 (0-0.50) K/uL Baso # (Auto) 0.03 (0-0.2) K/uL Immature Gran # (Auto) 0.06 H (0.00-0.02) K/uL PT 10.8 (9.0-12.0) Seconds INR 1.0 (0.9-1.1) APTT (21.0-31.0) Seconds PTT Ratio POC Sodium (135-144) mmol/L Sodium 136 (136-145) mmol/L POC Potassium (3.3-5.0) mmol/L Potassium 3.8 (3.5-5.1) mmol/L POC Chloride (101-112) mmol/L Chloride 102 (98-107) mmol/L Carbon Dioxide 28 (21-32) mmol/L POC Total CO2 (24-31) mmol/L Anion Gap 6 (3-11) POC Anion Gap (16-25) mmol/L POC BUN (7-18) mg/dl BUN 17 (6-23) mg/dl Creatinine 0.94 (0.6-1.2) mg/dl POC Creatinine (0.6-1.3) mg/dl Est Cr Clr Drug Dosing 38.9 ml/min Est GFR ( Amer) 62.3 ml/min Est GFR (Non-Af Amer) 53.8 ml/min BUN/Creatinine Ratio 18.1 (10-20) Glucose 185 H (70-99(Fasting)) mg/dl POC Glucose (other) (70-99) mg/dl Lactate (0.4-2.0) mmol/L Calcium 8.8 (8.5-10.1) mg/dl POC Ioniz Calcium Fernanda (1.12-1.32) mmol/l Total Bilirubin 0.9 (0.2-1.0) mg/dl AST 14 (13-39) U/L ALT 11 (7-52) U/L Alkaline Phosphatase 60 (34-104) U/L Troponin I High Sens 13.3 (0-14) pg/ml Total Protein 6.6 (6.0-8.3) gm/dl Albumin 4.1 (3.4-5.0) gm/dl Globulin 2.5 (2.5-4.0) gm/dl Albumin/Globulin Ratio 1.6 (0.9-2) Lipase 26 (11-82) U/L Urine Color Urine Appearance (Clear) Urine pH (4.5-7.5) Ur Specific [place] (1.000-1.030) Urine Protein (Negative) Urine Glucose (UA) (Negative) Urine Ketones (Negative) Urine Blood (Negative) Urine Nitrite (Negative) Urine Bilirubin (Negative) Urine Urobilinogen (Negative) Ur Leukocyte Esterase (Negative) Urine WBC (Auto) (0-5) /hpf Urine RBC (Auto) (0-4) /hpf U Hyaline Cast (Auto) (0-5) /lpf U Epithel Cells (Auto) (0-5) /lpf Urine Bacteria (Auto) (Negative) Urine Opiates Screen (Neg) Ur Methadone, Qual (Neg) Urine Barbiturates (Neg) Ur Phencyclidine (PCP) (Neg) U Amphetamin/Meth Scrn (Neg) MDMA (Ecstasy) Screen (Neg) U Benzodiazepines Scrn (Neg) Ur Cocaine Metabolite (Neg) U Marijuana (THC) Screen (Neg) SARS-CoV-2, RNA, NAAT (NEGATIVE) Blood Type Antibody Screen 09/04/21 09/04/21 09/04/21 Range/Units 04:44 04:53 05:54 WBC (4.8-10.8) K/ul RBC (3.93-5.22) M/uL Hgb (12.0-16.0) g/dl POC Hgb 12.9 (12.0-16.0) g/dl Hct (34.1-44.9) % POC Hct 38 (37-47) % MCV (80.0-100.0) fL MCH (25.0-34.0) pg MCHC (32.0-36.0) g/dL RDW Std Deviation (36.4-46.3) fL RDW Coeff of Coleman (11.5-14.5) % Plt Count (130-400) K/uL MPV (9.4-12.3) fL Immature Gran % (Auto) % Neut % (Auto) % Lymph % (Auto) % Posey % (Auto) % Eos % (Auto) % Baso % (Auto) % Neut # (Auto) (1.4-6.5) K/uL Lymph # (Auto) (1.2-3.4) K/uL [place] # (Auto) (0.24-0.82) K/uL Eos # (Auto) (0-0.50) K/uL Baso # (Auto) (0-0.2) K/uL Immature Gran # (Auto) (0.00-0.02) K/uL PT (9.0-12.0) Seconds INR (0.9-1.1) APTT 26.4 (21.0-31.0) Seconds PTT Ratio 1.0 POC Sodium 137 (135-144) mmol/L Sodium (136-145) mmol/L POC Potassium 3.8 (3.3-5.0) mmol/L Potassium (3.5-5.1) mmol/L POC Chloride 102 (101-112) mmol/L Chloride (98-107) mmol/L Carbon Dioxide (21-32) mmol/L POC Total CO2 27 (24-31) mmol/L Anion Gap (3-11) POC Anion Gap 12.0 L (16-25) mmol/L POC BUN 16 (7-18) mg/dl BUN (6-23) mg/dl Creatinine (0.6-1.2) mg/dl POC Creatinine 0.8 (0.6-1.3) mg/dl Est Cr Clr Drug Dosing ml/min Est GFR ( Amer) ml/min Est GFR (Non-Af Amer) ml/min BUN/Creatinine Ratio (10-20) Glucose (70-99(Fasting)) mg/dl POC Glucose (other) 190 H (70-99) mg/dl Lactate 1.6 (0.4-2.0) mmol/L Calcium (8.5-10.1) mg/dl POC Ioniz Calcium Fernanda 1.22 (1.12-1.32) mmol/l Total Bilirubin (0.2-1.0) mg/dl AST (13-39) U/L ALT (7-52) U/L Alkaline Phosphatase (34-104) U/L Troponin I High Sens (0-14) pg/ml Total Protein (6.0-8.3) gm/dl Albumin (3.4-5.0) gm/dl Globulin (2.5-4.0) gm/dl Albumin/Globulin Ratio (0.9-2) Lipase (11-82) U/L Urine Color Urine Appearance (Clear) Urine pH (4.5-7.5) Ur Specific [place] (1.000-1.030) Urine Protein (Negative) Urine Glucose (UA) (Negative) Urine Ketones (Negative) Urine Blood (Negative) Urine Nitrite (Negative) Urine Bilirubin (Negative) Urine Urobilinogen (Negative) Ur Leukocyte Esterase (Negative) Urine WBC (Auto) (0-5) /hpf Urine RBC (Auto) (0-4) /hpf U Hyaline Cast (Auto) (0-5) /lpf U Epithel Cells (Auto) (0-5) /lpf Urine Bacteria (Auto) (Negative) Urine Opiates Screen (Neg) Ur Methadone, Qual (Neg) Urine Barbiturates (Neg) Ur Phencyclidine (PCP) (Neg) U Amphetamin/Meth Scrn (Neg) MDMA (Ecstasy) Screen (Neg) U Benzodiazepines Scrn (Neg) Ur Cocaine Metabolite (Neg) U Marijuana (THC) Screen (Neg) SARS-CoV-2, RNA, NAAT (NEGATIVE) Blood Type Antibody Screen 09/04/21 09/04/21 09/04/21 Range/Units 05:54 08:04 08:15 WBC (4.8-10.8) K/ul RBC (3.93-5.22) M/uL Hgb (12.0-16.0) g/dl POC Hgb (12.0-16.0) g/dl Hct (34.1-44.9) % POC Hct (37-47) % MCV (80.0-100.0) fL MCH (25.0-34.0) pg MCHC (32.0-36.0) g/dL RDW Std Deviation (36.4-46.3) fL RDW Coeff of Coleman (11.5-14.5) % Plt Count (130-400) K/uL MPV (9.4-12.3) fL Immature Gran % (Auto) % Neut % (Auto) % Lymph % (Auto) % Posey % (Auto) % Eos % (Auto) % Baso % (Auto) % Neut # (Auto) (1.4-6.5) K/uL Lymph # (Auto) (1.2-3.4) K/uL [place] # (Auto) (0.24-0.82) K/uL Eos # (Auto) (0-0.50) K/uL Baso # (Auto) (0-0.2) K/uL Immature Gran # (Auto) (0.00-0.02) K/uL PT (9.0-12.0) Seconds INR (0.9-1.1) APTT (21.0-31.0) Seconds PTT Ratio POC Sodium (135-144) mmol/L Sodium (136-145) mmol/L POC Potassium (3.3-5.0) mmol/L Potassium (3.5-5.1) mmol/L POC Chloride (101-112) mmol/L Chloride (98-107) mmol/L Carbon Dioxide (21-32) mmol/L POC Total CO2 (24-31) mmol/L Anion Gap (3-11) POC Anion Gap (16-25) mmol/L POC BUN (7-18) mg/dl BUN (6-23) mg/dl Creatinine (0.6-1.2) mg/dl POC Creatinine (0.6-1.3) mg/dl Est Cr Clr Drug Dosing ml/min Est GFR ( Amer) ml/min Est GFR (Non-Af Amer) ml/min BUN/Creatinine Ratio (10-20) Glucose (70-99(Fasting)) mg/dl POC Glucose (other) (70-99) mg/dl Lactate (0.4-2.0) mmol/L Calcium (8.5-10.1) mg/dl POC Ioniz Calcium Fernanda (1.12-1.32) mmol/l Total Bilirubin (0.2-1.0) mg/dl AST (13-39) U/L ALT (7-52) U/L Alkaline Phosphatase (34-104) U/L Troponin I High Sens 44.1 H D (0-14) pg/ml Total Protein (6.0-8.3) gm/dl Albumin (3.4-5.0) gm/dl Globulin (2.5-4.0) gm/dl Albumin/Globulin Ratio (0.9-2) Lipase (11-82) U/L Urine Color Yellow Urine Appearance Clear (Clear) Urine pH 6.5 (4.5-7.5) Ur Specific [place] > 1.045 H (1.000-1.030) Urine Protein Negative (Negative) Urine Glucose (UA) Negative (Negative) Urine Ketones Negative (Negative) Urine Blood 2+ H (Negative) Urine Nitrite Negative (Negative) Urine Bilirubin Negative (Negative) Urine Urobilinogen Negative (Negative) Ur Leukocyte Esterase 2+ H (Negative) Urine WBC (Auto) 5-10 H (0-5) /hpf Urine RBC (Auto) >30 H (0-4) /hpf U Hyaline Cast (Auto) 0 (0-5) /lpf U Epithel Cells (Auto) >30 H (0-5) /lpf Urine Bacteria (Auto) Negative (Negative) Urine Opiates Screen (Neg) Ur Methadone, Qual (Neg) Urine Barbiturates (Neg) Ur Phencyclidine (PCP) (Neg) U Amphetamin/Meth Scrn (Neg) MDMA (Ecstasy) Screen (Neg) U Benzodiazepines Scrn (Neg) Ur Cocaine Metabolite (Neg) U Marijuana (THC) Screen (Neg) SARS-CoV-2, RNA, NAAT (NEGATIVE) Blood Type O Positive Antibody Screen NEGATIVE 09/04/21 09/04/21 Range/Units 08:15 08:17 WBC (4.8-10.8) K/ul RBC (3.93-5.22) M/uL Hgb (12.0-16.0) g/dl POC Hgb (12.0-16.0) g/dl Hct (34.1-44.9) % POC Hct (37-47) % MCV (80.0-100.0) fL MCH (25.0-34.0) pg MCHC (32.0-36.0) g/dL RDW Std Deviation (36.4-46.3) fL RDW Coeff of Coleman (11.5-14.5) % Plt Count (130-400) K/uL MPV (9.4-12.3) fL Immature Gran % (Auto) % Neut % (Auto) % Lymph % (Auto) % [place] % (Auto) % Eos % (Auto) % Baso % (Auto) % Neut # (Auto) (1.4-6.5) K/uL Lymph # (Auto) (1.2-3.4) K/uL [place] # (Auto) (0.24-0.82) K/uL Eos # (Auto) (0-0.50) K/uL Baso # (Auto) (0-0.2) K/uL Immature Gran # (Auto) (0.00-0.02) K/uL PT (9.0-12.0) Seconds INR (0.9-1.1) APTT (21.0-31.0) Seconds PTT Ratio POC Sodium (135-144) mmol/L Sodium (136-145) mmol/L POC Potassium (3.3-5.0) mmol/L Potassium (3.5-5.1) mmol/L POC Chloride (101-112) mmol/L Chloride (98-107) mmol/L Carbon Dioxide (21-32) mmol/L POC Total CO2 (24-31) mmol/L Anion Gap (3-11) POC Anion Gap (16-25) mmol/L POC BUN (7-18) mg/dl BUN (6-23) mg/dl Creatinine (0.6-1.2) mg/dl POC Creatinine (0.6-1.3) mg/dl Est Cr Clr Drug Dosing ml/min Est GFR ( Amer) ml/min Est GFR (Non-Af Amer) ml/min BUN/Creatinine Ratio (10-20) Glucose (70-99(Fasting)) mg/dl POC Glucose (other) (70-99) mg/dl Lactate (0.4-2.0) mmol/L Calcium (8.5-10.1) mg/dl POC Ioniz Calcium Fernanda (1.12-1.32) mmol/l Total Bilirubin (0.2-1.0) mg/dl AST (13-39) U/L ALT (7-52) U/L Alkaline Phosphatase (34-104) U/L Troponin I High Sens (0-14) pg/ml Total Protein (6.0-8.3) gm/dl Albumin (3.4-5.0) gm/dl Globulin (2.5-4.0) gm/dl Albumin/Globulin Ratio (0.9-2) Lipase (11-82) U/L Urine Color Urine Appearance (Clear) Urine pH (4.5-7.5) Ur Specific [place] (1.000-1.030) Urine Protein (Negative) Urine Glucose (UA) (Negative) Urine Ketones (Negative) Urine Blood (Negative) Urine Nitrite (Negative) Urine Bilirubin (Negative) Urine Urobilinogen (Negative) Ur Leukocyte Esterase (Negative) Urine WBC (Auto) (0-5) /hpf Urine RBC (Auto) (0-4) /hpf U Hyaline Cast (Auto) (0-5) /lpf U Epithel Cells (Auto) (0-5) /lpf Urine Bacteria (Auto) (Negative) Urine Opiates Screen Neg (Neg) Ur Methadone, Qual Neg (Neg) Urine Barbiturates Neg (Neg) Ur Phencyclidine (PCP) Neg (Neg) U Amphetamin/Meth Scrn Neg (Neg) MDMA (Ecstasy) Screen Neg (Neg) U Benzodiazepines Scrn Neg (Neg) Ur Cocaine Metabolite Neg (Neg) U Marijuana (THC) Screen Pos H (Neg) SARS-CoV-2, RNA, NAAT NEGATIVE (NEGATIVE) Blood Type Antibody Screen Imaging Data Radiologist's Impression: Abdomen/Pelvis CT 09/04/21 04:41 CT abd pelvis IV con only CLINICAL HISTORY: abdominal pain TECHNIQUE: Helical axial images of the abdomen and pelvis were obtained and displayed. Automated dose lowering techniques and/or adjustment according to patient size were utilized for this exam. This exam was performed with intravenous contrast. CT DOSE: 1587.56 mGy.cm COMPARISON: Comparison is made to CT abdomen pelvis 10/27/[address] abdomen pelvis 09/15/2011 FINDINGS: Lower chest: Bibasilar atelectasis versus scarring is seen. Liver: Unremarkable. No focal lesions are seen. Gallbladder and biliary tree: Patient is status post cholecystectomy. Physiologic prominence of the biliary ducts is noted. Pancreas: Unremarkable, no focal lesions. Spleen: Unremarkable. Adrenals: 13 mm left adrenal nodule is unchanged from prior exam. Kidneys and ureters: Subcentimeter hypodensities are too small to characterize. A 12 mm left renal cyst is noted. Bladder: Unremarkable. Reproductive organs: Unremarkable. Bowel: Diverticulosis is seen without evidence of diverticulitis. The appendix is normal. Lymph nodes Retroperitoneal: Unremarkable. Mesenteric: Unremarkable. Pelvic: Unremarkable. Peritoneum: Normal. Vessels: Atherosclerotic calcifications are seen. Abdominal wall: Unremarkable. Bones: Degenerative changes in the visualized spine. IMPRESSION: 1. No acute abnormalities. In particular, no evidence of visceral injury. 2. Indeterminate left adrenal nodule which is unchanged from 2012, almost certainly benign. 3. Status post cholecystomy with physiologic enlargement of the bile ducts.. ACT 112: Negative or not required by law. Electronically signed by: Zach Christy M.D. 09/04/2021 7:[address] 09/04/21 05:40 CT head/brain wo con CLINICAL HISTORY: Patient found down on the floor. Status post fall. COMPARISON STUDY: 10/29/2020 CT DOSE: TECHNIQUE: Standard CT of the Brain was performed without IV contrast. A dose lowering technique was utilized adhering to the principles of ALARA. FINDINGS: Extraaxial space: There is no evidence for subdural hematoma. There are no ex tra-axial fluid collections. Ventricles and cisterns: The ventricles are mildly dilated bilaterally. There is no evidence for midline shift or mass effect. Parenchyma: There is no subarachnoid or intraparenchymal hemorrhage. There is no evidence for an acute infarct or cerebral edema. There is mild cerebral cortical atrophy and decreased attenuation in the periventricular white matter representing remote small vessel disease. There are no gross mass lesions. 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 There is no evidence for an acute fracture. The visualized paranasal sinuses are clear. The mastoid air cells are clear bilaterally. Soft tissues: There is no evidence for focal soft tissue swelling. IMPRESSION: 1. No acute intracerebral pathology. 2. 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 3. Postsurgical changes are again seen on the left side as well. ACT 112: Negative or not required by law. Electronically signed by: Sundar Buckner M.D. 09/04/2021 7:22 AM Head CTA 09/04/21 05:40 CT angio head w con, CT angio neck with con CLINICAL HISTORY: neuro symptoms TECHNIQUE: CT angiography of the head and neck was performed following intravenous administration of iodinated contrast. Coronal and sagittal MIPS were obtained from the axial data set and were submitted for review. Automated dose lowering techniques and/or adjustment according to patient size were utilized for this examination. All measurements were calculated based on NASCET criteria. Comparison: None available at the time of this dictation. FINDINGS: Small thyroid nodules are seen which do not require follow-up by ACR criteria. CTA Neck: A 3 vessel aortic arch is shown. There is no significant atheroscl erotic plaque in the aortic arch or the origins of the innominate, left common carotid, and left subclavian arteries. The common carotid, external carotid, cervical segments of the internal carotid arteries, and the cervical segments of the vertebral arteries are patent without hemodynamically significant stenosis. The right vertebral artery is dominant. CTA Head: The anterior and posterior cerebral circulations are patent. No hemodynamically significant stenosis, aneurysm, dissection, or arteriovenous malformation is shown. Atherosclerotic disease is noted. IMPRESSION: 1. Postsurgical changes are noted in the left calvarium, CT head performed same day for further findings. 2. No occlusion, hemodynamically significant stenosis, aneurysm, dissection, or arteriovenous malformation in the major intracranial arteries. 3. No occlusion, hemodynamically significant stenosis, or dissection in the major cervical arteries. Assessment of stenosis of the internal carotid arteries is based on NASCET criteria. ACT 112: Negative or not required by law. Electronically signed by: Zach Christy M.D. 09/04/2021 7:50 AM Neck CTA 09/04/21 05:40 CT angio head w con, CT angio neck with con CLINICAL HISTORY: neuro symptoms TECHNIQUE: CT angiography of the head and neck was performed following intravenous administration of iodinated contrast. Coronal and sagittal MIPS were obtained from the axial data set and were submitted for review. Automated dose lowering techniques and/or adjustment according to patient size were utilized for this examination. All measurements were calculated based on NASCET criteria. Comparison: None available at the time of this dictation. FINDINGS: Small thyroid nodules are seen which do not require follow-up by ACR criteria. CTA Neck: A 3 vessel aortic arch is shown. There is no significant athero sclerotic plaque in the aortic arch or the origins of the innominate, left common carotid, and left subclavian arteries. The common carotid, external carotid, cervical segments of the internal carotid arteries, and the cervical segments of the vertebral arteries are patent without hemodynamically significant stenosis. The right vertebral artery is dominant. CTA Head: The anterior and posterior cerebral circulations are patent. No hemodynamically significant stenosis, aneurysm, dissection, or arteriovenous malformation is shown. Atherosclerotic disease is noted. IMPRESSION: 1. Postsurgical changes are noted in the left calvarium, CT head performed same day for further findings. 2. No occlusion, hemodynamically significant stenosis, aneurysm, dissection, or arteriovenous malformation in the major intracranial arteries. 3. No occlusion, hemodynamically significant stenosis, or dissection in the major cervical arteries. Assessment of stenosis of the internal carotid arteries is based on NASCET criteria. ACT 112: Negative or not required by law. Electronically signed by: Zach Christy M.D. 09/04/2021 7:50 AM ECG Data Attestation: I personally reviewed and interpreted this ECG as follows: Indication: + altered mental status Rate (beats per minute): 92 Rhythm: + normal sinus ECG Intervals/blocks: + Left bundle branch block ECG [place]: + Left axis deviation ECG ST segments: no ST depression, no ST elevation or no T-wave inversions Comparison ECG Date: from (10/28/20) Change: the following changes noted (NSR has replaced atrial fibrillation) Blood Pressure Blood Pressure Findings: Elevated blood pressure MDM Narrative This 89 yo female patient presents to the ED today for AMS, abdominal pain, nausea, vomiting. Symptoms came on suddenly at about 3:00 am. Pt. last known n ormal at 11:00pm. Upon arrival, history difficult to illicit. Pt. moaning and unable to answer questions due to nausea/vomiting. Pt. medicated with IV fluids, fentanyl, zofran, and ultimately promethazine. Her symptoms did improve. She was sent for CT imaging to evaluate her complaints. Unfortunately, there was a delay in uploading the images. The patient was signed out to YANET Calero CT imaging results. Please see his dictation regarding final disposition and plan. The chart was completed utilizing [employer] voice recognition software. Grammatical errors, random word insertions, pronoun errors, and incomplete sentences are an occasional consequence of this system due to software limitations, ambient noise, and hardware issues. Any formal questions or concerns about the content, text, or information contained within the body of this dictation should be directly addressed to the provider for clarification. Impression & Plan Altered mental status, Abdominal pain, Nausea & vomiting Discharge Plan Visit Data Chief Complaint: Abdominal Pain Stated Complaint: Abdominal Pain, Nausea, Vomiting ED Provider: Payal Mckay ED Midlevel Provider: Luis Campbell Discharge Problem: Altered mental status, Abdominal pain, Nausea & vomiting Patient Disposition: Admitted As Inpatient Condition: Fair Discharge Instructions Interventions: ED Discharge Assessment Last Done: 09/04/21 14:12
[2021-09-04] MEDS ORDERED: OPTIRAY 320 125ml IV ONE (06:17)
[2021-09-04 06:24] LABS: Partial Thromboplastin Time 26.4 Seconds (21.0-31.0)
--- NOTE | 2021-09-04 07:29 | CT Scan Report ---
CT head/brain wo con CLINICAL HISTORY: Patient found down on the floor. Status post fall. COMPARISON STUDY: 10/29/2020 CT DOSE: TECHNIQUE: Standard CT of the Brain was performed without IV contrast. A dose lowering technique was utilized adhering to the principles of ALARA. FINDINGS: Extraaxial space: There is no evidence for subdural hematoma. There are no extra-axial fluid collecti ons. Ventricles and cisterns: The ventricles are mildly dilated bilaterally. There is no evidence for midl ine shift or mass effect. Parenchyma: There is no subarachnoid or intraparenchymal hemorrhage. There is no evidence for an acut e infarct or cerebral edema. There is mild cerebral cortical atrophy and decreased attenuation in the periventricular white matter representing remote small vessel disease. There are no gross mass lesio ns. 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 There is no evidence for an acute fracture. The visualized paranasal sinuses a re clear. The mastoid air cells are clear bilaterally. Soft tissues: There is no evidence for focal soft tissue swelling. IMPRESSION: 1. No acute intracerebral pathology. 2. 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 3. Postsurgical changes are again seen on the left side as well. ACT 112: Negative or not required by law. Electronically signed by: Sundar Buckner M.D. 09/04/2021 7:22 AM
--- NOTE | 2021-09-04 07:40 | CT Scan Report ---
CT abd pelvis IV con only CLINICAL HISTORY: abdominal pain TECHNIQUE: Helical axial images of the abdomen and pelvis were obtained and displayed. Automated dose lowering techniques and/or adjustment according to patient size were utilized for this exam. This e xam was performed with intravenous contrast. CT DOSE: 1587.56 mGy.cm COMPARISON: Comparison is made to CT abdomen pelvis 10/27/[address] abdomen pelvis 09/15/2011 FINDINGS: Lower chest: Bibasilar atelectasis versus scarring is seen. Liver: Unremarkable. No focal lesions are seen. Gallbladder and biliary tree: Patient is status post cholecystectomy. Physiologic prominence of the b iliary ducts is noted. Pancreas: Unremarkable, no focal lesions. Spleen: Unremarkable. Adrenals: 13 mm left adrenal nodule is unchanged from prior exam. Kidneys and ureters: Subcentimeter hypodensities are too small to characterize. A 12 mm left renal cy st is noted. Bladder: Unremarkable. Reproductive organs: Unremarkable. Bowel: Diverticulosis is seen without evidence of diverticulitis. The appendix is normal. Lymph nodes Retroperitoneal: Unremarkable. Mesenteric: Unremarkable. Pelvic: Unremarkable. Peritoneum: Normal. Vessels: Atherosclerotic calcifications are seen. Abdominal wall: Unremarkable. Bones: Degenerative changes in the visualized spine. IMPRESSION: 1. No acute abnormalities. In particular, no evidence of visceral injury. 2. Indeterminate left adrenal nodule which is unchanged from 2012, almost certainly benign. 3. Status post cholecystomy with physiologic enlargement of the bile ducts.. ACT 112: Negative or not required by law. Electronically signed by: Zach Christy M.D. 09/04/2021 7:38 AM
--- NOTE | 2021-09-04 07:51 | Emergency Department Note ---
ED Visit Note 89-year-old female whose care was transferred to [place] from Preeti Cronin PA-C at change of shift. The patient presented to the emergency department with altered mental status, abdominal pain, nausea and vomiting. At the time of transfer of care, CT imaging was pending. The patient had poor nausea control with IV Zofran, and was therefore administered IV Phenergan with decent relief of the nausea. Review of labs did not show any concerning findings. A lactate and other electrolytes were normal. CT of the head, abdomen and pelvis, as well as CTA of the head and neck were unremarkable. As the patient was unable to provide a urine sample on her own, and likelihood that she would be admitted, a Saeed catheter was inserted. Urinalysis, unfortunately, showed a contaminated sample, but was not otherwise suggestive of infection. An ECG was also performed, showing a normal sinus rhythm of 73 bpm with left axis deviation and left bundle branch block. No ischemic changes or infarct appreciated. High- sensitivity troponin I was elevated at 48.5. Review of medical records shows that the patient has had a prior history of aneurysm with history of clip. She also has history of TIA. Upon further review with the patient, the patient still had altered mental status with no recollection of place or time. At this point, [facility] evaluation and admission. Please see their dictation for further treatment and final disposition. MEDICAL DECISION MAKING: At this point, exact etiology of the patient's altered mental status is unknown. CT imaging does not show evidence for intracranial bleed or CVA. Her lab work also was not suggestive of infectious etiology. CT of the abdomen and pelvis did not show any acute intra-abdominal findings. ECG at this time is normal, with a pending troponin, however I do not suspect acute cardiopulmonary etiology. The patient has no major electrolyte abnormality. She is hyperglycemic, however I do not suspect this is the cause of the patient's altered mental status. It is possible that this could be a TIA. The patient does not have any concerning neurologic findings to warrant stroke evaluation. Patient does have an elevated high-sensitivity troponin that will need further serial testing and ECGs. DIAGNOSIS: 1. Altered mental status 2. Abdominal pain 3. Nausea and vomiting 4. Elevated troponin level .
--- NOTE | 2021-09-04 07:52 | CT Scan Report ---
CT angio head w con, CT angio neck with con CLINICAL HISTORY: neuro symptoms TECHNIQUE: CT angiography of the head and neck was performed following intravenous administration of iodinated contrast. Coronal and sagittal MIPS were obtained from the axial data set and were submitte d for review. Automated dose lowering techniques and/or adjustment according to patient size were ut ilized for this examination. All measurements were calculated based on NASCET criteria. Comparison: None available at the time of this dictation. FINDINGS: Small thyroid nodules are seen which do not require follow-up by ACR criteria. CTA Neck: A 3 vessel aortic arch is shown. There is no significant atherosclerotic plaque in the aor tic arch or the origins of the innominate, left common carotid, and left subclavian arteries. The c ommon carotid, external carotid, cervical segments of the internal carotid arteries, and the cervical segments of the vertebral arteries are patent without hemodynamically significant stenosis. The righ t vertebral artery is dominant. CTA Head: The anterior and posterior cerebral circulations are patent. No hemodynamically significan t stenosis, aneurysm, dissection, or arteriovenous malformation is shown. Atherosclerotic disease is noted. IMPRESSION: 1. Postsurgical changes are noted in the left calvarium, CT head performed same day for further find ings. 2. No occlusion, hemodynamically significant stenosis, aneurysm, dissection, or arteriovenous malfor mation in the major intracranial arteries. 3. No occlusion, hemodynamically significant stenosis, or dissection in the major cervical arteries. Assessment of stenosis of the internal carotid arteries is based on NASCET criteria. ACT 112: Negative or not required by law. Electronically signed by: Zach Christy M.D. 09/04/2021 7:50 AM
[2021-09-04 08:34] LABS: Appearance Urine Clear (Clear); Bacteria Urine Automated Negative (Negative); Bilirubin Urine Negative (Negative); Blood Urine 2+ (Negative); Cast Urine Automated 0 /lpf (0-5); Color Urine Yellow; Epithelial Cell Urine Auto >30 /lpf (0-5); Glucose Urine UA Negative (Negative); Ketones Urine Negative (Negative); Leukocyte Esterase Urine 2+ (Negative); Nitrite Urine Negative (Negative); Protein Urine Negative (Negative); RBC Urine Automated >30 /hpf (0-4); Specific Gravity Urine > 1.045 (1.000-1.030); Urobilinogen Urine Negative (Negative); pH Urine 6.5 (4.5-7.5)
[2021-09-04] MEDS ORDERED: Heparin IV Adult Wt-Based Low-Dose *NO* Bolus Protocol IV ONE (09:36)
--- NOTE | 2021-09-04 09:36 | History & Physical Report ---
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 Pt presented to ED after having episode at approx 0300 with upper abd pain, nausea, vomiting and reported confusion. ER work up mostly unremarkable; however 2nd troponin did bump from 13 to 44.1. Confusion, abd pain, n/v has since resolved. She remains drowsy but arouses easily to verbal stimuli. No focal neuro deficits on exam Abdominal Pain Nausea and vomiting Reported altered mental status -has since resolved Elevated trop Sx possibly 2/2 to alcohol and medical marijuana admit to PCU UDS + for marijuana - after further questioning pt took husbands medical marijuana prior to bed last night, a liquid drop, this was her 2nd time taking supportive care with gentle hydration x 1 L, antiemetics as needed clear liquid diet and advance as tolerated cycle trops, obtain echo (pt recently had echo 08/27/21 preserved EF, mod which was new from prior) consult cardiology repeat CT head in am., pt unable to have MRI due to aneurysm clip/pacer r/o tia/cva PT/OT/ST stroke scale ? if sx 2/2 to medical marijuana (her husbands) use combined with alcohol use, pt drank roasted toasted almond (vodka, kahlua, amaretto) prior to bed and also took liquid drops of marijuana but unsure how many PAF continue amiodarone, metoprolol continue eliquis Hx of TBS s/p PPM interrogate pacer to determine if any underlying event occurred around ~ 3am HTN bp stable obtain orthostatics continue lisinopril, metoprolol HX of RUL Lung ca s/p Lobectomy Hx of brain aneurysm s/p clipping DVT ppx: eliquis Dispo: PCU PCP: Murphy DNR/DNI Pt was seen and examined in collaboration with Dr. Randall, please see addendum History of Present Illness Chief Complaint: Confusion, abdominal pain, nausea and vomiting that started at 3 AM. Primary Care Provider: Chung Arrington DO This is a 89-year-old female who has a significant past medical history of PAF anticoagulated on Eliquis, history of TBI status post PPM, history of brain aneurysm status post clipping, HTN, HLD, 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 Patient lives at home with her . Her daughter came into town late last evening at approximately 8 PM. Her daughter came into town for the of her father. Last evening they had BLTs for dinner and woke up until about 11 PM. She states her and her daughter had a roasted toasted Niki alcoholic beverage prior to going to bed. She has had this in the past. There is no known sick contacts. Per at approximately 3 AM patient woke up. He asked her to get out of bed to get him something and when she did she was groaning complaining of abdominal pain. She also had episode of vomiting. He felt like she was unable to get her words out and felt more confused. Due to symptoms not improving EMS was summoned. She did receive IV fentanyl for pain in route. She also received IV Zofran without improvement and then was administered IV Phenergan in ER. In ED patient remained hemodynamically stable. Her CBC and CMP was generally unremarkable except for mild elevation in glucose at 185. Her initial troponin was unremarkable and repeat in 4 hours was 44.1. Her urinalysis was negative for bacteria. Head and neck CTs were obtained which revealed postsurgical changes in the left calvarium but no other acute abnormality. Head CT revealed cerebral cortical atrophy and remote small vessel disease but no acute change. CT abdomen pelvis negative for acute abnormality. In ED she received IV fentanyl, IV Zofran, IV Phenergan and IV fluid. During my evaluation her mental status improved significantly. Currently she states she overall feels weak. She does recall waking up at 3 AM and just generally feeling weak and unwell. She recalls all events. She denies any recent illness, fever, chills, sweats, lightheadedness, dizziness, chest pain, shortness of breath at rest, hemoptysis, dysuria, increased urgency or frequency with urination, melena or hematochezia. Has been a few days and she had a bowel movement. She does complain of SANCHEZ specifically when doing ADLs or IADLs. She feels this is unchanged. She denies any tobacco use. She does occasionally drink alcohol, specifically glass of wine before dinner. Allergies Allergy/AdvReac Type Severity Reaction Status Date / Time adhesive Allergy Unknown RASH, Verified 04/29/21 10:30 REDDNESS AT SITE codeine Allergy Unknown RASH, Verified 04/29/21 10:30 SEVERE ITCHING metronidazole Allergy Unknown SEVERE Verified 04/29/21 10:30 YEAST/VAGINAL INFX morphine Allergy Unknown IRREGULAR Verified 04/29/21 10:30 HEART RATE, EXTREME SEDATION propoxyphene AdvReac Unknown A-FIB Verified 04/29/21 10:30 Home Medications Medication Instructions Recorded Confirmed Type lisinopril 5 mg tablet 5 mg PO QAM 01/30/18 04/29/21 History melatonin 10 mg tablet 10 mg PO HS PRN Sleep 10/26/18 04/29/21 History calcium carbonate 600 mg calcium 600 mg PO 3XWK PRN takes 12/31/19 04/29/21 History (1,500 mg) tablet (Calcium) sporadically diphenhydramine HCl 25 mg capsule 25 mg PO HS PRN Sleep 12/31/19 04/29/21 History (Sleep Aid (diphenhydramine)) magnesium oxide 400 mg PO QAM 12/31/19 04/29/21 History docusate sodium 100 mg capsule 100 mg PO HS PRN Constipation 03/10/20 04/29/21 History (Stool Softener) omega 0-vyt-wrl-fish oil 1,200 mg 2 cap PO BID 03/10/20 04/29/21 History (144 mg-216 mg) capsule (Fish Oil) amiodarone 200 mg tablet 100 mg PO QAM 05/03/20 04/29/21 History apixaban 2.5 mg tablet (Eliquis) 2.5 mg PO BID 05/03/20 04/29/21 History glucosamine sulf dipot 2 cap PO QAM 05/03/20 04/29/21 History chlr,msm,chond 550 mg-C 30 mg-yennifer 1 mg capsule (Glucosamine Chondroitin) pantoprazole 40 mg tablet,delayed 40 mg PO QAM 05/03/20 04/29/21 History release magnesium hydroxide 400 mg/5 mL 15 ml PO DAILY PRN Constipation 05/25/20 04/29/21 History oral suspension (Milk of Magnesia) furosemide 20 mg tablet (Lasix) 20 mg PO 2XWK PRN sweling and 10/30/20 04/29/21 Rx weight gain #30 tabs metoprolol tartrate 25 mg tablet 25 mg PO BID #0 tabs 10/30/20 04/29/21 Rx Past Med/Surg History Medical History Aneurysm brain> surgery to repair at [place] > 1988 Per records "History of cerebral carotid artery aneurysm clipping 1988 " COVID Dysarthria GERD (gastroesophageal reflux disease) Heart failure follows Dr. Bay History of lung cancer 1993- s/p RUL lung resection History of trigger finger multiple to both hands Hyperlipidemia Hypertension Longstanding LBBB (left bundle branch block) Chronic per cardio records Pacemaker Placed Mar 16, 2020> [facility] > follows Dr. 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 Bay SOB (shortness of breath) TIA (transient ischemic attack) no further issues > 2017 > doesn't follow neuro Surgical History H/O section x1 H/O hemorrhoidectomy H/O ultrasound guided needle biopsy of lung History of cardiac cath 2010 - no obstructive CAD History of carpal tunnel release bilat History of cataract surgery bilat History of colon resection 8 inches > 2001 History of colonoscopy History of hysterectomy History of lung surgery 1993 > RUL > due to cancer > no chemo/radiation History of right shoulder replacement reverse History of spinal surgery Hx of cholecystectomy Hx of exploratory thoracotomy Family History Aunt Diabetes Other Abdominal aortic aneurysm Stroke Social History Smoking Status: Never smoker Second Hand Exposure: No; Hx Alcohol Use: Yes Alcohol type: wine Hx Substance Use: No Preferred Language: Martiniquais Communication Ability: Effective Visual Impairment: Limited Hearing Ability: Hard of Hearing Repair Coil Winder Required: No Beliefs That Will Affect Care: None marital status: Current Living Situation: Spouse How many Children do You have: 1 Feels Safe at Home: Yes Assistive Devices: None Review of Systems Review of Systems: All systems reviewed & are unremarkable except as noted in HPI & below Physical Exam Physical Exam: Constitutional: Elderly, weak, female, WD/WN, vitals as above, NAD, lying in bed, initially drowsy but after further conversation does arouse, pleasant, conversing easily Head: Normocephalic, Atraumatic Eyes: PERRL, conjunctivae normal, anicteric sclerae ENMT: external ear and nose normal, oropharynx normal Neck: trachea midline, no thyromegaly normal visual inspection Respiratory: normal respiratory effort, lungs clear to auscultation, no wheeze, rales, rhonchi. Normal insp/exp effort, no accessory muscle use Cardiovascular: RRR, 2/6 DYLON noted throughout precordium, best RUSB, no edema Vessels: no JVD or carotid bruit Chest: normal inspection of chest Abdomen: normal bowel sounds, soft, nontender, no hepatosplenomegaly Musculoskeletal: no cyanosis or clubbing, extremities motor strength 5/5 Skin: no rashes, warm and dry normal turgor Neurologic: PERRL, EOMI, accommodation nl, no face palsy, no dysarthria CN's II-XI intact bilaterally and moves all extremities Psychiatric: A+Ox3, euthymic affect Lymphatic: no cervical or axillary lymphadenopathy : deferred Results & Data Results & Data ([facility]) Vital Signs (Past 12 Hours) Vital Signs Temp Pulse Resp BP Pulse Ox O2 Del Method 09/04/21 08:00 72 15 09/04/21 07:30 79 20 09/04/21 07:10 81 16 09/04/21 07:10 129/82 97 09/04/21 07:00 80 15 09/04/21 06:16 90 16 131/83 93 Room Air 09/04/21 04:38 87 25 H 165/60 H 96 Room Air 09/04/21 04:45 37.2 C 87 18 165/60 H 95 Room Air Diagnostic Findings Abdomen/Pelvis CT 09/04/21 04:41 CT abd pelvis IV con only CLINICAL HISTORY: abdominal pain TECHNIQUE: Helical axial images of the abdomen and pelvis were obtained and displayed. Automated dose lowering techniques and/or adjustment according to patient size were utilized for this exam. This exam was performed with intravenous contrast. CT DOSE: 1587.56 mGy.cm COMPARISON: Comparison is made to CT abdomen pelvis 10/27/[address] abdomen pelvis 09/15/2011 FINDINGS: Lower chest: Bibasilar atelectasis versus scarring is seen. Liver: Unremarkable. No focal lesions are seen. Gallbladder and biliary tree: Patient is status post cholecystectomy. Physiologic prominence of the biliary ducts is noted. Pancreas: Unremarkable, no focal lesions. Spleen: Unremarkable. Adrenals: 13 mm left adrenal nodule is unchanged from prior exam. Kidneys and ureters: Subcentimeter hypodensities are too small to characterize. A 12 mm left renal cyst is noted. Bladder: Unremarkable. Reproductive organs: Unremarkable. Bowel: Diverticulosis is seen without evidence of diverticulitis. The appendix is normal. Lymph nodes Retroperitoneal: Unremarkable. Mesenteric: Unremarkable. Pelvic: Unremarkable. Peritoneum: Normal. Vessels: Atherosclerotic calcifications are seen. Abdominal wall: Unremarkable. Bones: Degenerative changes in the visualized spine. IMPRESSION: 1. No acute abnormalities. In particular, no evidence of visceral injury. 2. Indeterminate left adrenal nodule which is unchanged from 2012, almost certainly benign. 3. Status post cholecystomy with physiologic enlargement of the bile ducts.. ACT 112: Negative or not required by law. Electronically signed by: Zach Christy M.D. 09/04/2021 7:[address] 09/04/21 05:40 CT head/brain wo con CLINICAL HISTORY: Patient found down on the floor. Status post fall. COMPARISON STUDY: 10/29/2020 CT DOSE: TECHNIQUE: Standard CT of the Brain was performed without IV contrast. A dose lowering technique was utilized adhering to the principles of ALARA. FINDINGS: Extraaxial space: There is no evidence for subdural hematoma. There are no extra-axial fluid collections. Ventricles and cisterns: The ventricles are mildly dilated bilaterally. There is no evidence for midline shift or mass effect. Parenchyma: There is no subarachnoid or intraparenchymal hemorrhage. There is no evidence for an acute infarct or cerebral edema. There is mild cerebral cortical atrophy and decreased attenuation in the periventricular white matter representing remote small vessel disease. There are no gross mass lesions. 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 There is no evidence for an acute fracture. The visualized paranasal sinuses are clear. The mastoid air cells are clear bilaterally. Soft tissues: There is no evidence for focal soft tissue swelling. IMPRESSION: 1. No acute intracerebral pathology. 2. 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 3. Postsurgical changes are again seen on the left side as well. ACT 112: Negative or not required by law. Electronically signed by: Sundar Buckner M.D. 09/04/2021 7:22 AM Head CTA 09/04/21 05:40 CT angio head w con, CT angio neck with con CLINICAL HISTORY: neuro symptoms TECHNIQUE: CT angiography of the head and neck was performed following intravenous administration of iodinated contrast. Coronal and sagittal MIPS were obtained from the axial data set and were submitted for review. Automated dose lowering techniques and/or adjustment according to patient size were utilized for this examination. All measurements were calculated based on NASCET criteria. Comparison: None available at the time of this dictation. FINDINGS: Small thyroid nodules are seen which do not require follow-up by ACR criteria. CTA Neck: A 3 vessel aortic arch is shown. There is no significant atherosclerotic plaque in the aortic arch or the origins of the innominate, left common carotid, and left subclavian arteries. The common carotid, external carotid, cervical segments of the internal carotid arteries, and the cervical segments of the vertebral arteries are patent without hemodynamically significant stenosis. The right vertebral artery is dominant. CTA Head: The anterior and posterior cerebral circulations are patent. No hemodynamically significant stenosis, aneurysm, dissection, or arteriovenous malformation is shown. Atherosclerotic disease is noted. IMPRESSION: 1. Postsurgical changes are noted in the left calvarium, CT head performed same day for further findings. 2. No occlusion, hemodynamically significant stenosis, aneurysm, dissection, or arteriovenous malformation in the major intracranial arteries. 3. No occlusion, hemodynamically significant stenosis, or dissection in the major cervical arteries. Assessment of stenosis of the internal carotid arteries is based on NASCET criteria. ACT 112: Negative or not required by law. Electronically signed by: Zach Christy M.D. 09/04/2021 7:50 AM Neck CTA 09/04/21 05:40 CT angio head w con, CT angio neck with con CLINICAL HISTORY: neuro symptoms TECHNIQUE: CT angiography of the head and neck was performed following intravenous administration of iodinated contrast. Coronal and sagittal MIPS were obtained from the axial data set and were submitted for review. Automated dose lowering techniques and/or adjustment according to patient size were utilized for this examination. All measurements were calculated based on NASCET criteria. Comparison: None available at the time of this dictation. FINDINGS: Small thyroid nodules are seen which do not require follow-up by ACR criteria. CTA Neck: A 3 vessel aortic arch is shown. There is no significant atherosclerotic plaque in the aortic arch or the origins of the innominate, left common carotid, and left subclavian arteries. The common carotid, external carotid, cervical segments of the internal carotid arteries, and the cervical segments of the vertebral arteries are patent without hemodynamically significant stenosis. The right vertebral artery is dominant. CTA Head: The anterior and posterior cerebral circulations are patent. No hemodynamically significant stenosis, aneurysm, dissection, or arteriovenous malformation is shown. Atherosclerotic disease is noted. IMPRESSION: 1. Postsurgical changes are noted in the left calvarium, CT head performed same day for further findings. 2. No occlusion, hemodynamically significant stenosis, aneurysm, dissection, or arteriovenous malformation in the major intracranial arteries. 3. No occlusion, hemodynamically significant stenosis, or dissection in the major cervical arteries. Assessment of stenosis of the internal carotid arteries is based on NASCET criteria. ACT 112: Negative or not required by law. Electronically signed by: Zach Christy M.D. 09/04/2021 7:50 AM Medications Administered Medication List Fentanyl Citrate (Fentanyl Citrate 100 Mcg/2 Ml Vial) 25 mcg IV Q15M PRN PRN Reason: Pain Stop: 09/18/21 04:40 Last Admin: 09/04/21 05:07 Dose: 25 mcg Documented By: MANDO Discontinued Medications Sodium Chloride (Nss 1000ml) 500 mls @ 999 mls/hr IV .Q31M ONE Stop: 09/04/21 05:14 Last Infusion: 09/04/21 05:40 Dose: 0 mls/hr Documented By: Admin: 09/04/21 05:08 Dose: 999 mls/hr Documented By: MANDO Promethazine HCl (Phenergan) 12.5 mg in 50.5 mls @ 202 mls/hr IV NOW STA Stop: 09/04/21 05:45 Last Infusion: 09/04/21 05:46 Dose: 0 mls/hr Documented By: Admin: 09/04/21 05:40 Dose: 202 mls/hr Documented By: MANDO Ioversol (Optiray 320 125ml) 125 ml IV ONCE ONE Stop: 09/04/21 06:18 Last Admin: 09/04/21 06:17 Dose: 118 ml Documented By: DASHA Ondansetron HCl (Ondansetron Inj 2 Mg/Ml 2 Ml Vial) 4 mg IV NOW STA Stop: 09/04/21 04:42 Last Admin: 09/04/21 05:07 Dose: 4 mg Documented By: MANDO ECG Rate (beats per minute): 73 Rhythm: normal sinus Findings: + LBBB Additional Comments: nonspecific T wave ab COVID-19 Results Results COVID-19 Adm Lab Results: RBC 4.69 M/uL (3.93-5.22) 09/04/21 WBC 7.08 K/ul (4.8-10.8) 09/04/21 Hgb 13.2 g/dl (12.0-16.0) 09/04/21 Hct 39.2 % (34.1-44.9) 09/04/21 Plt Count 241 K/uL (130-400) 09/04/21 Neutrophils (%) (Auto) 60.7 % 09/04/21 Lymphocytes (%) (Auto) 32.2 % 09/04/21 Monocytes # (Auto) 0.34 K/uL (0.24-0.82) 09/04/21 Eosinophils # (Auto) 0.08 K/uL (0-0.50) 09/04/21 Immature Granulocyte % (Auto) 0.8 % 09/04/21 Neutrophils # (Auto) 4.29 K/uL (1.4-6.5) 09/04/21 Lymphocytes # (Auto) 2.28 K/uL (1.2-3.4) 09/04/21 Monocytes # (Auto) 0.34 K/uL (0.24-0.82) 09/04/21 Eosinophils # (Auto) 0.08 K/uL (0-0.50) 09/04/21 Basophils # (Auto) 0.03 K/uL (0-0.2) 09/04/21 Immature Granulocyte # (Auto) 0.06 K/uL (0.00-0.02) H 09/04 Na 136 mmol/L (136-145) 09/04/21 K 3.8 mmol/L (3.5-5.1) 09/04/21 Cl 102 mmol/L (98-107) 09/04/21 CO2 28 mmol/L (21-32) 09/04/21 Anion Gap 6 (3-11) 09/04/21 BUN 17 mg/dl (6-23) 09/04/21 Creatinine 0.94 mg/dl (0.6-1.2) 09/04/21 BUN/Creatinine Ratio 18.1 (10-20) 09/04/21 Glucose Level 185 mg/dl (70-99(Fasting)) H 09/04/21 Ca 8.8 mg/dl (8.5-10.1) 09/04/21 Total Bilirubin 0.9 mg/dl (0.2-1.0) 09/04/21 AST/SGOT 14 U/L (13-39) 09/04/21 ALT/SGPT 11 U/L (7-52) 09/04/21 Alkaline Phosphatase 60 U/L (34-104) 09/04/21 Total Protein 6.6 gm/dl (6.0-8.3) 09/04/21 Albumin 4.1 gm/dl (3.4-5.0) 09/04/21 Globulin 2.5 gm/dl (2.5-4.0) 09/04/21 Albumin/Globulin Ratio 1.6 (0.9-2) 09/04/21 PTT 26.4 Seconds (21.0-31.0) 09/04/21 INR 1.0 (0.9-1.1) 09/04/21 SARS-CoV-2, RNA, NAAT NEGATIVE (NEGATIVE) 09/04/21 Code Status & VTE Plan Code Status DNR/DNI VTE Prophylaxis Plan VTE Prophylaxis will be ordered: No Supervising Physician Co-Signing Physician Notes This is an attending cosign note for full report and documentation please see the full dictation above by PA-C. Following is a synopsis Patient comes planing of weakness nausea vomiting unclear of color and consistency. Weakness altered mental status as noted by family members. Symptoms started around 3 in the morning. Patient more alert and oriented however weak. Head atraumatic pupils equal symmetrical. Chest largely clear abdomen soft with awake generalized discomfort. Largely nonfocal other than generalized weakness. UDS returning positive for marijuana patient admitting taking it as a sleeping aid yesterday which she does not normally do. Also had few alcoholic drinks. Denies being a regular drinker. Not a daily drinker. Weakness lethargy likely secondary to combination of marijuana and alcohol. Marijuana induced GI complaints abdominal discomfort and emesis. Monitor closely. Borderline elevated troponin. Trend echocardiogram cardiology consultation. No complaint of chest pain.
[2021-09-04] MEDS ORDERED: HEPARIN SODIUM/DEXTROSE 25,000 UNITS/500 ML BAG IV SCH (09:45)
[2021-09-04] MEDS ORDERED: HEPARIN 25000 UNIT/500 ML D5W IV ONE (09:48)
[2021-09-04 10:04] LABS: Amphetamines+Metham, Urine Neg (Neg); Barbiturates, Urine Neg (Neg); Benzodiazepine, Urine Neg (Neg); Cocaine, Urine Neg (Neg); MDMA (Ecstacy), Urine Neg (Neg); Methadone, Urine Neg (Neg); Opiate, Urine Neg (Neg); Phencyclidine, Urine Neg (Neg)
[2021-09-04 10:06] LABS: Base Excess VBG 3.4 mEq/L; HCO3 VBG 30 mmol/L; Oxygen Saturation VBG 62.6 %; PCO2 VBG 50 mmHg (38-50); PO2 VBG 38 mmHg; pH VBG 7.38 (7.36-7.41)
[2021-09-04] MEDS ORDERED: ACETAMINOPHEN 325 MG TAB PO PRN (11:14)
[2021-09-04] MEDS ORDERED: ALUMINUM/MAGNESIUM SUSP 30 ML UDC PO PRN (11:14)
[2021-09-04] MEDS ORDERED: POLYETHYLENE (MIRALAX) 17 GM PACK PO PRN (11:14)
[2021-09-04] MEDS ORDERED: MAGNESIUM HYDROXIDE SUSP 30 ML UDC PO PRN (11:14)
[2021-09-04] MEDS ORDERED: NSS + 20MEQ KCL 20 MEQ/1,000 ML BAG IV SCH (11:14)
[2021-09-04] MEDS ORDERED: PROMETHAZINE HCL 6.25 MG in SODIUM CHLORIDE 0.9% 50 ML IV PRN (11:14)
[2021-09-04] MEDS ORDERED: PHARMACIST DISCHARGE MED REC CONSULT PRN (11:14)
[2021-09-04] MEDS ORDERED: APIXABAN 2.5 MG TAB PO ONE (12:00)
--- NOTE | 2021-09-04 14:09 | Cardiology Consultation ---
Date of Consultation September 04, 2021 Assessment & Plan (1) Abdominal pain: (2) Nausea & vomiting: (3) Elevated troponin: (4) Altered mental status: (5) Pacemaker: Supervising Physician Co-Signing Physician Notes Patient is a complex 89-year-old female with multiple medical issues and ongoing cardiac concerns as listed above who was referred for elevated troponin after presenting with symptoms of lethargy confusion abdominal pain and vomiting. Possible medication interactions versus underlying ultimate cause entertained. Exam EKG echocardiograms and history do not suggest an acute coronary syndrome Will continue to follow patient in hospital would not use IV anticoagulants Agree with gentle hydration and follow lab work serially. Consider repeat COVID if symptoms persist 24 hours History of Present Illness Reason for Consultation: Elevated troponin Attending Physician: Colby Randall MD History of Present Illness Patient is an 89-year-old female with ongoing multiple issues which include 1. Longstanding hypertension 2. Chronic left bundle branch block 3. History of cerebral carotid artery aneurysm clipping 1988 4. Single episode transient atrial flutter post operatively 1988 5. Hyperlipidemia 6. Cardiac catheterization November 2010 without obstructive coronary disease 7. TIA with transient aphasia June of 2017 8. Paroxysmal atrial fibrillation controlled in sinus rhythm with low-dose amiodarone therapy 9. 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 Status post right upper lobectomy 1993 Patient is referred now for evaluation after ER evaluation and admission last evening. Recent history is notable for difficulty with stress and poor sleepinglast evening attempt to sleep better had an alcoholic beverage as well as ingestible medical marijuana she obtained from her (drops) She awakened approximately 3 AM this morning and upon rising from bed became acutely nauseated and mildly confused, lethargic with episode of emesis and abdominal pain. No chest pains no tachypalpitations no syncope or near syncope. Still lethargic and nauseated this morning Complains of headache and sore throat Diagnostic imaging on presentation including head and neck CTA, head CT and abdominal CT unrevealing EKG reflects chronic left bundle branch block Echocardiogram with preserved LV systolic function heavy aortic sclerosis without stenosis and mild mitral insufficiency Troponin mildly elevated Allergies Allergy/AdvReac Type Severity Reaction Status Date / Time adhesive Allergy Unknown RASH, Verified 04/29/21 10:30 REDDNESS AT SITE codeine Allergy Unknown RASH, Verified 04/29/21 10:30 SEVERE ITCHING metronidazole Allergy Unknown SEVERE Verified 04/29/21 10:30 YEAST/VAGINAL INFX morphine Allergy Unknown IRREGULAR Verified 04/29/21 10:30 HEART RATE, EXTREME SEDATION propoxyphene AdvReac Unknown A-FIB Verified 04/29/21 10:30 Home Medications Medication Instructions Recorded Confirmed Type lisinopril 5 mg tablet 5 mg PO QAM 01/30/18 09/04/21 History melatonin 10 mg tablet 10 mg PO HS PRN Sleep 10/26/18 09/04/21 History calcium carbonate 600 mg calcium 600 mg PO [id number] PRN takes 12/31/19 09/04/21 History (1,500 mg) tablet (Calcium) sporadically diphenhydramine HCl 25 mg capsule 25 mg PO HS PRN Sleep 12/31/19 09/04/21 History (Sleep Aid (diphenhydramine)) magnesium oxide 400 mg PO QAM 12/31/19 09/04/21 History docusate sodium 100 mg capsule 100 mg PO HS PRN Constipation 03/10/20 09/04/21 History (Stool Softener) omega 6-ibt-itr-fish oil 1,200 mg 2 cap PO BID 03/10/20 09/04/21 History (144 mg-216 mg) capsule (Fish Oil) amiodarone 200 mg tablet 100 mg PO QAM 05/03/20 09/04/21 History apixaban 2.5 mg tablet (Eliquis) 2.5 mg PO BID 05/03/20 09/04/21 History glucosamine sulf dipot 2 cap PO QAM 05/03/20 09/04/21 History chlr,msm,chond 550 mg-C 30 mg-yennifer 1 mg capsule (Glucosamine Chondroitin) pantoprazole 40 mg tablet,delayed 40 mg PO QAM 05/03/20 09/04/21 History release magnesium hydroxide 400 mg/5 mL 15 ml PO DAILY PRN Constipation 05/25/20 09/04/21 History oral suspension (Milk of Magnesia) furosemide 20 mg tablet (Lasix) 20 mg PO 2XWK PRN sweling and 10/30/20 09/04/21 Rx weight gain #30 tabs metoprolol tartrate 25 mg tablet 25 mg PO BID #0 tabs 10/30/20 09/04/21 Rx Patient History Medical History (Updated 09/04/21 @ 14:32 by Sj Bay MD) Aneurysm brain> surgery to repair at [place] > 1988 Per records "History of cerebral carotid artery aneurysm clipping 1988 " COVID Dysarthria GERD (gastroesophageal reflux disease) Heart failure follows Dr. Bay History of lung cancer 1993- s/p RUL lung resection History of trigger finger multiple to both hands Hyperlipidemia Hypertension Longstanding LBBB (left bundle branch block) Chronic per cardio records Pacemaker Placed Mar 16, 2020> [facility] > follows Dr. 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 Bay SOB (shortness of breath) TIA (transient ischemic attack) no further issues > 2017 > doesn't follow neuro Surgical History H/O section x1 H/O hemorrhoidectomy H/O ultrasound guided needle biopsy of lung History of cardiac cath 2010 - no obstructive CAD History of carpal tunnel release bilat History of cataract surgery bilat History of colon resection 8 inches > 2001 History of colonoscopy History of hysterectomy History of lung surgery 1993 > RUL > due to cancer > no chemo/radiation History of right shoulder replacement reverse History of spinal surgery Hx of cholecystectomy Hx of exploratory thoracotomy Family History Aunt Diabetes Other Abdominal aortic aneurysm Stroke Social History Smoking Status: Never smoker Second Hand Exposure: No; Hx Alcohol Use: Yes Alcohol type: wine Hx Substance Use: No Preferred Language: British Communication Ability: Effective Visual Impairment: Limited Hearing Ability: Hard of Hearing Computer Training Specialist Required: No Beliefs That Will Affect Care: None marital status: Current Living Situation: Spouse How many Children do You have: 1 Feels Safe at Home: Yes Assistive Devices: None Physical Exam Constitutional: + lethargic; no acute distress Eyes: PERRL, conjunctivae normal, anicteric sclerae ENMT: external ear and nose normal, oropharynx normal Neck: trachea midline, no thyromegaly Respiratory: Auscultation: + diminished lung sounds Cardiovascular: Rate/Rhythm: regular rate and regular rhythm Heart Sounds: + murmur (Grade 2 over 6 systolic) Vessels: no JVD Extremities: no edema Gastrointestinal (Abdomen): normal bowel sounds, soft, nontender, no hepatosplenomegaly Results & Data ([facility]) Vital Signs (Past 12 Hours) Vital Signs Temp Pulse Resp BP BP Pulse Ox O2 Del Method 09/04/21 12:53 14 101/55 L 95 09/04/21 12:00 14 101/55 L 98 Room Air 09/04/21 08:00 72 15 09/04/21 07:30 79 20 09/04/21 07:10 81 16 09/04/21 07:10 129/82 97 09/04/21 07:00 80 15 09/04/21 06:16 90 16 131/83 93 Room Air 09/04/21 04:38 87 25 H 165/60 H 96 Room Air 09/04/21 04:45 37.2 C 87 18 165/60 H 95 Room Air Laboratory Results Laboratory Results - last 24 hr 09/04/21 09/04/21 09/04/21 04:40 04:40 04:40 WBC 7.08 RBC 4.69 Hgb 13.2 POC Hgb Hct 39.2 POC Hct MCV 83.6 MCH 28.1 MCHC 33.7 RDW Std Deviation 42.8 RDW Coeff of Coleman 14.0 Plt Count 241 MPV 9.0 L Immature Gran % (Auto) 0.8 Neut % (Auto) 60.7 Lymph % (Auto) 32.2 Mercer % (Auto) 4.8 Eos % (Auto) 1.1 Baso % (Auto) 0.4 Neut # (Auto) 4.29 Lymph # (Auto) 2.28 Mercer # (Auto) 0.34 Eos # (Auto) 0.08 Baso # (Auto) 0.03 Immature Gran # (Auto) 0.06 H PT 10.8 INR 1.0 APTT PTT Ratio VBG pH VBG pCO2 VBG pO2 VBG HCO3 VBG O2 Saturation VBG Base Excess POC Sodium Sodium 136 POC Potassium Potassium 3.8 POC Chloride Chloride 102 Carbon Dioxide 28 POC Total CO2 Anion Gap 6 POC Anion Gap POC BUN BUN 17 Creatinine 0.94 POC Creatinine Est Cr Clr Drug Dosing 38.9 Est GFR ( Amer) 62.3 Est GFR (Non-Af Amer) 53.8 BUN/Creatinine Ratio 18.1 Glucose 185 H POC Glucose (other) Lactate Calcium 8.8 POC Ioniz Calcium Fernanda Total Bilirubin 0.9 AST 14 ALT 11 Alkaline Phosphatase 60 Ammonia Troponin I High Sens 13.3 Total Protein 6.6 Albumin 4.1 Globulin 2.5 Albumin/Globulin Ratio 1.6 Lipase 26 TSH Urine Color Urine Appearance Urine pH Ur Specific Clark Urine Protein Urine Glucose (UA) Urine Ketones Urine Blood Urine Nitrite Urine Bilirubin Urine Urobilinogen Ur Leukocyte Esterase Urine WBC (Auto) Urine RBC (Auto) U Hyaline Cast (Auto) U Epithel Cells (Auto) Urine Bacteria (Auto) Urine Opiates Screen Ur Methadone, Qual Urine Barbiturates Ur Phencyclidine (PCP) U Amphetamin/Meth Scrn MDMA (Ecstasy) Screen U Benzodiazepines Scrn Ur Cocaine Metabolite U Marijuana (THC) Screen U Marijuana THC Carboxy Drug Screen Comment SARS-CoV-2, RNA, NAAT Blood Type Antibody Screen 09/04/21 09/04/21 09/04/21 04:44 04:53 05:54 WBC RBC Hgb POC Hgb 12.9 Hct POC Hct 38 MCV MCH MCHC RDW Std Deviation RDW Coeff of Coleman Plt Count MPV Immature Gran % (Auto) Neut % (Auto) Lymph % (Auto) Mercer % (Auto) Eos % (Auto) Baso % (Auto) Neut # (Auto) Lymph # (Auto) Mercer # (Auto) Eos # (Auto) Baso # (Auto) Immature Gran # (Auto) PT INR APTT 26.4 PTT Ratio 1.0 VBG pH VBG pCO2 VBG pO2 VBG HCO3 VBG O2 Saturation VBG Base Excess POC Sodium 137 Sodium POC Potassium 3.8 Potassium POC Chloride 102 Chloride Carbon Dioxide POC Total CO2 27 Anion Gap POC Anion Gap 12.0 L POC BUN 16 BUN Creatinine POC Creatinine 0.8 Est Cr Clr Drug Dosing Est GFR ( Amer) Est GFR (Non-Af Amer) BUN/Creatinine Ratio Glucose POC Glucose (other) 190 H Lactate 1.6 Calcium POC Ioniz Calcium Fernanda 1.22 Total Bilirubin AST ALT Alkaline Phosphatase Ammonia Troponin I High Sens Total Protein Albumin Globulin Albumin/Globulin Ratio Lipase TSH Urine Color Urine Appearance Urine pH Ur Specific Clark Urine Protein Urine Glucose (UA) Urine Ketones Urine Blood Urine Nitrite Urine Bilirubin Urine Urobilinogen Ur Leukocyte Esterase Urine WBC (Auto) Urine RBC (Auto) U Hyaline Cast (Auto) U Epithel Cells (Auto) Urine Bacteria (Auto) Urine Opiates Screen Ur Methadone, Qual Urine Barbiturates Ur Phencyclidine (PCP) U Amphetamin/Meth Scrn MDMA (Ecstasy) Screen U Benzodiazepines Scrn Ur Cocaine Metabolite U Marijuana (THC) Screen U Marijuana THC Carboxy Drug Screen Comment SARS-CoV-2, RNA, NAAT Blood Type Antibody Screen 09/04/21 09/04/21 09/04/21 05:54 08:04 08:15 WBC RBC Hgb POC Hgb Hct POC Hct MCV MCH MCHC RDW Std Deviation RDW Coeff of Coleman Plt Count MPV Immature Gran % (Auto) Neut % (Auto) Lymph % (Auto) Mercer % (Auto) Eos % (Auto) Baso % (Auto) Neut # (Auto) Lymph # (Auto) Mercer # (Auto) Eos # (Auto) Baso # (Auto) Immature Gran # (Auto) PT INR APTT PTT Ratio VBG pH VBG pCO2 VBG pO2 VBG HCO3 VBG O2 Saturation VBG Base Excess POC Sodium Sodium POC Potassium Potassium POC Chloride Chloride Carbon Dioxide POC Total CO2 Anion Gap POC Anion Gap POC BUN BUN Creatinine POC Creatinine Est Cr Clr Drug Dosing Est GFR ( Amer) Est GFR (Non-Af Amer) BUN/Creatinine Ratio Glucose POC Glucose (other) Lactate Calcium POC Ioniz Calcium Fernanda Total Bilirubin AST ALT Alkaline Phosphatase Ammonia Troponin I High Sens 44.1 H D Total Protein Albumin Globulin Albumin/Globulin Ratio Lipase TSH Urine Color Yellow Urine Appearance Clear Urine pH 6.5 Ur Specific Clark > 1.045 H Urine Protein Negative Urine Glucose (UA) Negative Urine Ketones Negative Urine Blood 2+ H Urine Nitrite Negative Urine Bilirubin Negative Urine Urobilinogen Negative Ur Leukocyte Esterase 2+ H Urine WBC (Auto) 5-10 H Urine RBC (Auto) >30 H U Hyaline Cast (Auto) 0 U Epithel Cells (Auto) >30 H Urine Bacteria (Auto) Negative Urine Opiates Screen Ur Methadone, Qual Urine Barbiturates Ur Phencyclidine (PCP) U Amphetamin/Meth Scrn MDMA (Ecstasy) Screen U Benzodiazepines Scrn Ur Cocaine Metabolite U Marijuana (THC) Screen U Marijuana THC Carboxy Drug Screen Comment SARS-CoV-2, RNA, NAAT Blood Type O Positive Antibody Screen NEGATIVE 09/04/21 09/04/21 09/04/21 08:15 08:15 08:17 WBC RBC Hgb POC Hgb Hct POC Hct MCV MCH MCHC RDW Std Deviation RDW Coeff of Coleman Plt Count MPV Immature Gran % (Auto) Neut % (Auto) Lymph % (Auto) Mercer % (Auto) Eos % (Auto) Baso % (Auto) Neut # (Auto) Lymph # (Auto) Mercer # (Auto) Eos # (Auto) Baso # (Auto) Immature Gran # (Auto) PT INR APTT PTT Ratio VBG pH VBG pCO2 VBG pO2 VBG HCO3 VBG O2 Saturation VBG Base Excess POC Sodium Sodium POC Potassium Potassium POC Chloride Chloride Carbon Dioxide POC Total CO2 Anion Gap POC Anion Gap POC BUN BUN Creatinine POC Creatinine Est Cr Clr Drug Dosing Est GFR ( Amer) Est GFR (Non-Af Amer) BUN/Creatinine Ratio Glucose POC Glucose (other) Lactate Calcium POC Ioniz Calcium Fernanda Total Bilirubin AST ALT Alkaline Phosphatase Ammonia Troponin I High Sens Total Protein Albumin Globulin Albumin/Globulin Ratio Lipase TSH Urine Color Urine Appearance Urine pH Ur Specific Clark Urine Protein Urine Glucose (UA) Urine Ketones Urine Blood Urine Nitrite Urine Bilirubin Urine Urobilinogen Ur Leukocyte Esterase Urine WBC (Auto) Urine RBC (Auto) U Hyaline Cast (Auto) U Epithel Cells (Auto) Urine Bacteria (Auto) Urine Opiates Screen Neg Ur Methadone, Qual Neg Urine Barbiturates Neg Ur Phencyclidine (PCP) Neg U Amphetamin/Meth Scrn Neg MDMA (Ecstasy) Screen Neg U Benzodiazepines Scrn Neg Ur Cocaine Metabolite Neg U Marijuana (THC) Screen Pos H U Marijuana THC Carboxy Pending Drug Screen Comment Pending SARS-CoV-2, RNA, NAAT NEGATIVE Blood Type Antibody Screen 09/04/21 09/04/21 09/04/21 09:37 09:37 09:46 WBC RBC Hgb POC Hgb Hct POC Hct MCV MCH MCHC RDW Std Deviation RDW Coeff of Coleman Plt Count MPV Immature Gran % (Auto) Neut % (Auto) Lymph % (Auto) Mercer % (Auto) Eos % (Auto) Baso % (Auto) Neut # (Auto) Lymph # (Auto) Mercer # (Auto) Eos # (Auto) Baso # (Auto) Immature Gran # (Auto) PT INR APTT PTT Ratio VBG pH VBG pCO2 VBG pO2 VBG HCO3 VBG O2 Saturation VBG Base Excess POC Sodium Sodium POC Potassium Potassium POC Chloride Chloride Carbon Dioxide POC Total CO2 Anion Gap POC Anion Gap POC BUN BUN Creatinine POC Creatinine Est Cr Clr Drug Dosing Est GFR ( Amer) Est GFR (Non-Af Amer) BUN/Creatinine Ratio Glucose POC Glucose (other) Lactate Calcium POC Ioniz Calcium Fernanda Total Bilirubin AST ALT Alkaline Phosphatase Ammonia 28.0 Troponin I High Sens 48.5 H Total Protein Albumin Globulin Albumin/Globulin Ratio Lipase TSH 0.325 Urine Color Urine Appearance Urine pH Ur Specific Clark Urine Protein Urine Glucose (UA) Urine Ketones Urine Blood Urine Nitrite Urine Bilirubin Urine Urobilinogen Ur Leukocyte Esterase Urine WBC (Auto) Urine RBC (Auto) U Hyaline Cast (Auto) U Epithel Cells (Auto) Urine Bacteria (Auto) Urine Opiates Screen Ur Methadone, Qual Urine Barbiturates Ur Phencyclidine (PCP) U Amphetamin/Meth Scrn MDMA (Ecstasy) Screen U Benzodiazepines Scrn Ur Cocaine Metabolite U Marijuana (THC) Screen U Marijuana THC Carboxy Drug Screen Comment SARS-CoV-2, RNA, NAAT Blood Type Antibody Screen 09/04/21 09:46 WBC RBC Hgb POC Hgb Hct POC Hct MCV MCH MCHC RDW Std Deviation RDW Coeff of Coleman Plt Count MPV Immature Gran % (Auto) Neut % (Auto) Lymph % (Auto) Mercer % (Auto) Eos % (Auto) Baso % (Auto) Neut # (Auto) Lymph # (Auto) Mercer # (Auto) Eos # (Auto) Baso # (Auto) Immature Gran # (Auto) PT INR APTT PTT Ratio VBG pH 7.38 VBG pCO2 50 VBG pO2 38 VBG HCO3 30 VBG O2 Saturation 62.6 VBG Base Excess 3.4 POC Sodium Sodium POC Potassium Potassium POC Chloride Chloride Carbon Dioxide POC Total CO2 Anion Gap POC Anion Gap POC BUN BUN Creatinine POC Creatinine Est Cr Clr Drug Dosing Est GFR ( Amer) Est GFR (Non-Af Amer) BUN/Creatinine Ratio Glucose POC Glucose (other) Lactate Calcium POC Ioniz Calcium Fernanda Total Bilirubin AST ALT Alkaline Phosphatase Ammonia Troponin I High Sens Total Protein Albumin Globulin Albumin/Globulin Ratio Lipase TSH Urine Color Urine Appearance Urine pH Ur Specific Clark Urine Protein Urine Glucose (UA) Urine Ketones Urine Blood Urine Nitrite Urine Bilirubin Urine Urobilinogen Ur Leukocyte Esterase Urine WBC (Auto) Urine RBC (Auto) U Hyaline Cast (Auto) U Epithel Cells (Auto) Urine Bacteria (Auto) Urine Opiates Screen Ur Methadone, Qual Urine Barbiturates Ur Phencyclidine (PCP) U Amphetamin/Meth Scrn MDMA (Ecstasy) Screen U Benzodiazepines Scrn Ur Cocaine Metabolite U Marijuana (THC) Screen U Marijuana THC Carboxy Drug Screen Comment SARS-CoV-2, RNA, NAAT Blood Type Antibody Screen
[2021-09-04] MEDS: PANTOprazole 40 MG TAB PO SCH (16:21)
[2021-09-04] MEDS: METOPROLOL TARTRATE 25 MG TAB PO SCH ×2 (16:21→20:33)
--- NOTE | 2021-09-04 16:45 | Electrocardiogram Report ---
Test Reason : Blood Pressure : / mmHG Vent. Rate : 092 BPM Atrial Rate : 092 BPM P-R Int : 172 ms QRS Dur : 146 ms QT Int : 422 ms P-R-T Axes : 080 -51 092 degrees QTc Int : 521 ms Poor data quality, interpretation may be adversely affected Normal sinus rhythm Left axis deviation Left bundle branch block Abnormal ECG When compared with ECG of 28-OCT-2020 23:36, Sinus rhythm has replaced Atrial fibrillation Confirmed by Paulo Woodward ([id number]) on 09/04/2021 4:44:56 PM Referred By: REFERRED SELF Confirmed By:Paulo Woodward
--- NOTE | 2021-09-04 16:48 | Electrocardiogram Report ---
Test Reason : Blood Pressure : / mmHG Vent. Rate : 073 BPM Atrial Rate : 073 BPM P-R Int : 168 ms QRS Dur : 140 ms QT Int : 456 ms P-R-T Axes : 061 -55 077 degrees QTc Int : 502 ms Normal sinus rhythm Left axis deviation Left bundle branch block Abnormal ECG When compared with ECG of 04-SEP-2021 04:38, (unconfirmed) Nonspecific T wave abnormality has replaced inverted T waves in Lateral leads Confirmed by Paulo Woodward ([id number]) on 09/04/2021 4:48:12 PM Referred By: REFERRED SELF Confirmed By:Paulo Woodward
[2021-09-04] MEDS: APIXABAN 2.5 MG TAB PO SCH (20:32)
[2021-09-04] MEDS: DOCUSATE SODIUM 100 MG CAP PO SCH (20:32)
[2021-09-05 06:59] LABS: Albumin Globulin Ratio 1.6 (0.9-2); Albumin Level 3.1 gm/dl (3.4-5.0); BUN Creatinine Ratio 13.5 (10-20); Bilirubin,Total 1.3 mg/dl (0.2-1.0); Chol HDL Ratio 4.9 (0-5); Creatinine Clr Calc Pharmacy 44.5 ml/min; Est GFR (African American) 83.2 ml/min; Est GFR (Non-African American) 71.8 ml/min; Globulin 1.9 gm/dl (2.5-4.0); Magnesium 1.9 mg/dl (1.7-2.4); Potassium 3.8 mmol/L (3.5-5.1)
[2021-09-05 07:02] LABS: Basophils # (auto) 0.02 K/uL (0-0.2); Basophils % (auto) 0.3 %; Eosinophils % (auto) 1.7 %; Hematocrit (blood only) 32.7 % (34.1-44.9); Hemoglobin 10.9 g/dl (12.0-16.0); Immature Granulocytes # (auto) 0.03 K/uL (0.00-0.02); Immature Granulocytes % (auto) 0.5 %; Lymphocytes # (auto) 2.39 K/uL (1.2-3.4); Lymphocytes % (auto) 41.1 %; Mean Corpuscular Hemoglobin 28.3 pg (25.0-34.0); Mean Corpuscular Hgb Conc 33.3 g/dL (32.0-36.0); Mean Corpuscular Volume 84.9 fL (80.0-100.0); Mean Platelet Volume 9.1 fL (9.4-12.3); Monocytes # (auto) 0.47 K/uL (0.24-0.82); Monocytes % (auto) 8.1 %; Neutrophils # (auto) 2.81 K/uL (1.4-6.5); Neutrophils % (auto) 48.3 %; Platelet Count 207 K/uL (130-400); RDW Coefficient of Variation 14.4 % (11.5-14.5); RDW Standard Deviation 45.1 fL (36.4-46.3); Red Blood Count 3.85 M/uL (3.93-5.22); White Blood Count 5.82 K/ul (4.8-10.8)
[2021-09-05 07:06] LABS: Estimated Average Glucose 134 mg/dl; Hemoglobin A1C 6.3 % (4.5-5.6)
[2021-09-05] MEDS: AMIODARONE 200 MG TAB PO SCH (08:58)
[2021-09-05] MEDS: APIXABAN 2.5 MG TAB PO SCH ×2 (08:58→20:41)
[2021-09-05] MEDS: MAGNESIUM OXIDE 400 MG TAB PO SCH (08:59)
[2021-09-05] MEDS ORDERED: lisinopril 5 MG TAB PO SCH (09:00)
--- NOTE | 2021-09-05 09:26 | CT Scan Report ---
CT SCAN OF THE BRAIN WITHOUT IV CONTRAST CLINICAL HISTORY: Change in mental status. Stroke like symptoms. COMPARISON STUDY: CT of the brain dated 09/04/2021. TECHNIQUE: Unenhanced axial CT scan of the brain is performed from the vertex to the skull base. A do se lowering technique was utilized adhering to the principles of ALARA. CT DOSE: 537.48 mGy.cm FINDINGS: Brain parenchyma: Aneurysm clips are noted in the left suprasellar region. There is age-related invol utional change noting mild subcortical and periventricular microangiopathic disease. Left temporopari etal encephalomalacia is unchanged. There is no hemorrhage, mass effect, or evidence of acute territo rial ischemia by CT criteria. Briceño-white matter differentiation is preserved. No extra-axial fluid co llection is seen. Ventricles, sulci, cisterns: Prominent secondary to involutional change. Intracranial vasculature: There is atherosclerotic calcification of the cavernous carotid arteries. Calvarium: There is postoperative change from left-sided craniotomy. No destructive calvarial lesion is identified. Sinuses and mastoids: The visualized paranasal sinuses are clear. The mastoid air cells are well pneu matized. Orbits: The bony orbits are grossly intact. There are bilateral ocular lens implants. IMPRESSION: There is no hemorrhage, mass effect, or evidence of acute territorial ischemia by CT crit arminda.. No significant change from yesterday. ACT 112: Negative or not required by law. Electronically signed by: Lars Amaya M.D. 09/05/2021 9:24 AM
[2021-09-05] MEDS: PANTOprazole 40 MG TAB PO SCH (09:38)
[2021-09-05] MEDS: METOPROLOL TARTRATE 25 MG TAB PO SCH ×2 (09:39→20:40)
--- NOTE | 2021-09-05 11:52 | Cardiology Progress Note ---
Date of Service September 05, 2021 Assessment & Plan (1) Abdominal pain: (2) Nausea & vomiting: (3) Elevated troponin: (4) Altered mental status: (5) Pacemaker: Plan 89-year-old admitted with multiple complaints possibly medication induced superimposed on acute anxiety reaction. Do not suspect acute coronary syndrome or ischemia. Would continue usual cardiac medications Treat underlying anxiety sleep deprivation As per patient request will contact Admission and Anticipated Discharge Date Admission Date: September 04, 2021 Subjective Patient seen and examined, chart and medications reviewed. Extremely anxious and tearful this morning feels tight all over no respiratory distress. Notes multiple social stressors at home and not dealing well with. Difficulty sleeping persistent anxiety Review of Systems Review of Systems: All systems reviewed & are unremarkable except as noted in Subjective Physical Exam Constitutional: + lethargic; no acute distress Eyes: PERRL, conjunctivae normal, anicteric sclerae ENMT: external ear and nose normal, oropharynx normal Neck: trachea midline, no thyromegaly Respiratory: Auscultation: + diminished lung sounds Cardiovascular: Rate/Rhythm: regular rate and regular rhythm Heart Sounds: + murmur (Grade 2 over 6 systolic) Vessels: no JVD Extremities: no edema Gastrointestinal (Abdomen): normal bowel sounds, soft, nontender, no hepatosplenomegaly Results & Data ([facility]) Vital Signs (Past 12 Hours) Vital Signs Temp Pulse Pulse Resp BP Pulse Ox O2 Del Method 09/05/21 08:50 Room Air 09/05/21 07:10 56 L 09/05/21 08:02 36.7 C 72 16 108/57 L 93 Room Air 09/05/21 03:55 36.6 C 66 18 96/60 L 92 Room Air Laboratory Results Laboratory Results - last 24 hr 09/04/21 09/04/21 09/05/21 14:50 20:50 05:33 WBC 5.82 RBC 3.85 L Hgb 10.9 L Hct 32.7 L MCV 84.9 MCH 28.3 MCHC 33.3 RDW Std Deviation 45.1 RDW Coeff of Coleman 14.4 Plt Count 207 MPV 9.1 L Immature Gran % (Auto) 0.5 Neut % (Auto) 48.3 Lymph % (Auto) 41.1 Metcalfe % (Auto) 8.1 Eos % (Auto) 1.7 Baso % (Auto) 0.3 Neut # (Auto) 2.81 Lymph # (Auto) 2.39 Metcalfe # (Auto) 0.47 Eos # (Auto) 0.10 Baso # (Auto) 0.02 Immature Gran # (Auto) 0.03 H Sodium Potassium Chloride Carbon Dioxide Anion Gap BUN Creatinine Est Cr Clr Drug Dosing Est GFR ( Amer) Est GFR (Non-Af Amer) BUN/Creatinine Ratio Glucose Estimat Average Glucose Hemoglobin A1c Calcium Magnesium Total Bilirubin AST ALT Alkaline Phosphatase Troponin I High Sens 34.3 H D 29.4 H Total Protein Albumin Globulin Albumin/Globulin Ratio Triglycerides Cholesterol LDL Cholesterol, Calc VLDL Cholesterol, Calc HDL Cholesterol Cholesterol/HDL Ratio 09/05/21 09/05/21 05:33 05:33 WBC RBC Hgb Hct MCV MCH MCHC RDW Std Deviation RDW Coeff of Coleman Plt Count MPV Immature Gran % (Auto) Neut % (Auto) Lymph % (Auto) Metcalfe % (Auto) Eos % (Auto) Baso % (Auto) Neut # (Auto) Lymph # (Auto) Metcalfe # (Auto) Eos # (Auto) Baso # (Auto) Immature Gran # (Auto) Sodium 138 Potassium 3.8 Chloride 108 H Carbon Dioxide 28 Anion Gap 2 L BUN 10 Creatinine 0.74 Est Cr Clr Drug Dosing 44.5 Est GFR ( Amer) 83.2 Est GFR (Non-Af Amer) 71.8 BUN/Creatinine Ratio 13.5 Glucose 89 Estimat Average Glucose 134 Hemoglobin A1c 6.3 H Calcium 8.0 L Magnesium 1.9 Total Bilirubin 1.3 H AST 10 L ALT 8 Alkaline Phosphatase 43 Troponin I High Sens Total Protein 5.0 L D Albumin 3.1 L Globulin 1.9 L Albumin/Globulin Ratio 1.6 Triglycerides 136 Cholesterol 190 LDL Cholesterol, Calc 124 VLDL Cholesterol, Calc 27 HDL Cholesterol 39 Cholesterol/HDL Ratio 4.9
[2021-09-05] MEDS ORDERED: LACTATED RINGER'S 1,000 ML IV SCH (13:15)
--- NOTE | 2021-09-05 13:21 | Hospitalist Progress Note ---
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 Pt presented to ED after having episode at approx 0300 with upper abd pain, nausea, vomiting and reported confusion. ER work up mostly unremarkable; however 2nd troponin did bump from 13 to 44.1. Confusion, abd pain, n/v has since resolved. She remains drowsy but arouses easily to verbal stimuli. No focal neuro deficits on exam Elevated trop - resolved admit to PCU - can downgrade to med/surg advanced to heart healthy diet trops peaked and decreased, ECG without ischemic changes consult cardiology repeat CT head unremarkable PT/OT/ST - symptoms likely related to anxiety and sleep depravation - will give melatonin for sleep - will give prn hydroxyzine for acute anxiety - will start on SSRI for anxiety for longer term control - will likely benefit from following up with PCP for further management of anxiety Abdominal Pain - resolved Nausea and vomiting - resolved Reported altered mental status -has since resolved PAF continue amiodarone, metoprolol continue eliquis Hx of TBS s/p PPM interrogate pacer to determine if any underlying event occurred around ~ 3am HTN bp stable continue lisinopril, metoprolol HX of RUL Lung ca s/p Lobectomy Hx of brain aneurysm s/p clipping DVT ppx: eliquis Dispo: PCU PCP: Murphy MANNINGR/DNI Izaiah Vallejo MD [facility] Medicine Admission and Anticipated Discharge Date Admission Date: September 04, 2021 Subjective This is a 89-year-old female who has a significant past medical history of PAF anticoagulated on Eliquis, history of TBI status post PPM, history of brain aneurysm status post clipping, HTN, HLD, 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 Had mild troponin elevation that resolved, no ECG changes for ischemia. Cardiology consulted and does not thinkt his is ACS, likely demand ishcemia in the setting of dehydration, anxiety, poor sleep. TTE showed normal EF and G1DD. Patient seen and examined, chart and medications reviewed. Extremely anxious and tearful this morning feels tight all over no respiratory distress. Notes multiple social stressors at home and not dealing well with. Persistent anxiety about her her own ability to help care for him. She did not want to talk to anyone like a psychiatrist at this time. She reports poor sleep over the past week or so. Denies cough, fever or chills, n/v/d, dysuria. Review of Systems Review of Systems: All systems reviewed & are unremarkable except as noted in Subjective Physical Exam Constitutional: + lethargic; no acute distress anxious and tearful on exam Eyes: PERRL, conjunctivae normal, anicteric sclerae ENMT: external ear and nose normal, oropharynx normal Neck: trachea midline, no thyromegaly Respiratory: Auscultation: + diminished lung sounds Cardiovascular: Rate/Rhythm: regular rate and regular rhythm Heart Sounds: + murmur (Grade 2 over 6 systolic) Vessels: no JVD Extremities: no edema Gastrointestinal (Abdomen): normal bowel sounds, soft, nontender, no hepatosplenomegaly Results & Data Results & Data ([facility]) Vital Signs (Past 12 Hours) Vital Signs Temp Pulse Pulse Resp BP BP Pulse Ox 09/05/21 12:02 36.6 C 64 20 102/51 L 95 09/05/21 08:50 09/05/21 07:10 56 L 09/05/21 08:02 36.7 C 72 16 108/57 L 93 09/05/21 03:55 36.6 C 66 18 96/60 L 92 O2 Del Method 09/05/21 12:02 Room Air 09/05/21 08:50 Room Air 09/05/21 07:10 09/05/21 08:02 Room Air 09/05/21 03:55 Room Air Laboratory Results Short CBC 09/05/21 Range/Units 05:33 WBC 5.82 (4.8-10.8) K/ul Hgb 10.9 L (12.0-16.0) g/dl Hct 32.7 L (34.1-44.9) % Plt Count 207 (130-400) K/uL BMP 09/05/21 05:33 Sodium 138 Potassium 3.8 Chloride 108 H Carbon Dioxide 28 BUN 10 Creatinine 0.74 Glucose 89 Calcium 8.0 L Liver Function 09/05/21 Range/Units 05:33 Total Bilirubin 1.3 H (0.2-1.0) mg/dl AST 10 L (13-39) U/L ALT 8 (7-52) U/L Alkaline Phosphatase 43 (34-104) U/L Albumin 3.1 L (3.4-5.0) gm/dl Diagnostic Findings Head CT 09/05/21 08:00 CT SCAN OF THE BRAIN WITHOUT IV CONTRAST CLINICAL HISTORY: Change in mental status. Stroke like symptoms. COMPARISON STUDY: CT of the brain dated 09/04/2021. TECHNIQUE: Unenhanced axial CT scan of the brain is performed from the vertex to the skull base. A dose lowering technique was utilized adhering to the principles of ALARA. CT DOSE: 537.48 mGy.cm FINDINGS: Brain parenchyma: Aneurysm clips are noted in the left suprasellar region. There is age-related involutional change noting mild subcortical and periventricular microangiopathic disease. Left temporoparietal encephalomalacia is unchanged. There is no hemorrhage, mass effect, or evidence of acute territorial ischemia by CT criteria. Briceño-white matter differentiation is preserved. No extra-axial fluid collection is seen. Ventricles, sulci, cisterns: Prominent secondary to involutional change. Intracranial vasculature: There is atherosclerotic calcification of the cavernous carotid arteries. Calvarium: There is postoperative change from left-sided craniotomy. No destructive calvarial lesion is identified. Sinuses and mastoids: The visualized paranasal sinuses are clear. The mastoid air cells are well pneumatized. Orbits: The bony orbits are grossly intact. There are bilateral ocular lens implants. IMPRESSION: There is no hemorrhage, mass effect, or evidence of acute territorial ischemia by CT criteria.. No significant change from yesterday. ACT 112: Negative or not required by law. Electronically signed by: Lars Amaya M.D. 09/05/2021 9:24 AM Medications Administered Current Inpatient Medications Acetaminophen (Acetaminophen 325 Mg Tab) 650 mg PO Q4H PRN PRN Reason: Pain or Fever Stop: 10/04/21 11:13 Al Hydrox/Mg Hydrox/Simethicone (Aluminum/Magnesium Susp 30 Ml Udc) 15 ml PO Q4H PRN PRN Reason: Dyspepsia Stop: 10/04/21 11:13 Amiodarone HCl (Amiodarone 200 Mg Tab) [facility] [place] Stop: 10/05/21 08:59 Last Admin: 09/05/21 08:58 Dose: 100 mg Apixaban (Apixaban 2.5 Mg Tab) 2.5 mg PO BID [facility] Stop: 10/04/21 20:59 Last Admin: 09/05/21 08:58 Dose: 2.5 mg Docusate Sodium (Docusate Sodium 100 Mg Cap) 100 mg PO [facility] Stop: 10/04/21 20:59 Last Admin: 09/04/21 20:32 Dose: 100 mg Lactated Ringer's (Lr) 1,000 mls @ 80 mls/hr IV .[id number] [facility] Stop: 09/05/21 23:14 Lisinopril (Lisinopril 5 Mg Tab) 5 mg [facility] [place] Stop: 10/05/21 08:59 Last Admin: 09/05/21 08:59 Dose: 5 mg Magnesium Hydroxide (Magnesium Hydroxide Susp 30 Ml Udc) 30 ml PO Q12H PRN PRN Reason: Constipation Stop: 10/04/21 11:13 Magnesium Oxide (Magnesium Oxide 400 Mg Tab) 400 mg PO [facility] Stop: 10/05/21 08:59 Last Admin: 09/05/21 08:59 Dose: 400 mg Melatonin (Melatonin 3 Mg Tab) 5 mg PO [facility] Stop: 10/05/21 20:59 Metoprolol Tartrate (Metoprolol Tartrate 25 Mg Tab) 25 mg PO BID [facility] Stop: 10/04/21 11:13 Last Admin: 09/05/21 09:39 Dose: 25 mg Pantoprazole Sodium (Pantoprazole 40 Mg Tab) 40 mg PO QAM [facility] Stop: 10/04/21 11:13 Last Admin: 09/05/21 09:38 Dose: 40 mg Polyethylene Glycol (Polyethylene (Miralax) 17 Gm Pack) 17 gm PO DAILY PRN PRN Reason: Constipation Stop: 10/04/21 11:13
[2021-09-05] MEDS ORDERED: hydrOXYzine HCl 10 MG TAB PO PRN (13:32)
[2021-09-05] MEDS: DOCUSATE SODIUM 100 MG CAP PO SCH (20:41)
[2021-09-05] MEDS ORDERED: MIRTAZAPINE TAB 15 MG TAB PO SCH (21:00)
[2021-09-05] MEDS ORDERED: MELATONIN 3 MG TAB PO SCH (21:00)
[2021-09-06] MEDS: METOPROLOL TARTRATE 25 MG TAB PO SCH (07:55)
[2021-09-06] MEDS: APIXABAN 2.5 MG TAB PO SCH (07:55)
[2021-09-06] MEDS: AMIODARONE 200 MG TAB PO SCH (07:55)
[2021-09-06] MEDS: PANTOprazole 40 MG TAB PO SCH (07:55)
--- NOTE | 2021-09-06 08:13 | Hospitalist Progress Note ---
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 Pt presented to ED after having episode at approx 0300 with upper abd pain, nausea, vomiting and reported confusion. ER work up mostly unremarkable; however 2nd troponin did bump from 13 to 44.1. Confusion, abd pain, n/v has since resolved. She remains drowsy but arouses easily to verbal stimuli. No focal neuro deficits on exam Elevated trop - resolved admit to PCU - can downgrade to med/surg advanced to heart healthy diet trops peaked and decreased, ECG without ischemic changes consult cardiology repeat CT head unremarkable PT/OT/ST - symptoms likely related to anxiety and sleep depravation - continue melatonin for sleep - continue prn hydroxyzine for acute anxiety - continue mirtazapine for anxiety and sleep for longer term control - will likely benefit from following up with PCP for further management of anxiety - ok for discharge today 09/06/2021 PAF continue amiodarone, metoprolol continue eliquis Hx of TBS s/p PPM interrogate pacer to determine if any underlying event occurred around ~ 3am HTN bp stable continue lisinopril, metoprolol HX of RUL Lung ca s/p Lobectomy Hx of brain aneurysm s/p clipping DVT ppx: eliquis Dispo: PCU PCP: Murphy MANNINGR/DNI Izaiah Vallejo MD [facility] Medicine Admission and Anticipated Discharge Date Admission Date: September 04, 2021 Subjective This is a 89-year-old female who has a significant past medical history of PAF anticoagulated on Eliquis, history of TBI status post PPM, history of brain aneurysm status post clipping, HTN, HLD, 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 Had mild troponin elevation that resolved, no ECG changes for ischemia. Cardiology consulted and does not thinkt his is ACS, likely demand ishcemia in the setting of dehydration, anxiety, poor sleep. TTE showed normal EF and G1DD. During her hospitalization she expressed stress and anxiety about her home life and caring for herself and her , who has been sick. She was started on mirtazapine for anxiety, sleep, appetite. She was also given hydroxyzine prn for acute anxiety episodes. The patient feels much better today and is ready to go home. She understands that there are issues in her life but she and her have been preparing and she is feeling better about working through her other issues. Denies cough, fever or chills, n/v/d, dysuria. Review of Systems Review of Systems: All systems reviewed & are unremarkable except as noted in Subjective Physical Exam Constitutional: no acute distress Eyes: PERRL, conjunctivae normal, anicteric sclerae ENMT: external ear and nose normal, oropharynx normal Neck: trachea midline, no thyromegaly Respiratory: Auscultation: + diminished lung sounds Cardiovascular: Rate/Rhythm: regular rate and regular rhythm Heart Sounds: + murmur (Grade 2 over 6 systolic) Vessels: no JVD Extremities: no edema Gastrointestinal (Abdomen): normal bowel sounds, soft, nontender, no hepatosplenomegaly Results & Data Results & Data ([facility]) Vital Signs (Past 12 Hours) Vital Signs Temp Pulse Pulse Resp BP BP Pulse Ox 09/06/21 07:13 36.8 C 71 19 146/64 H 96 09/05/21 20:30 09/05/21 23:57 36.8 C 63 18 123/56 L 97 09/05/21 23:45 61 O2 Del Method 09/06/21 07:13 Room Air 09/05/21 20:30 Room Air 09/05/21 23:57 Room Air 09/05/21 23:45 Medications Administered Current Inpatient Medications Acetaminophen (Acetaminophen 325 Mg Tab) 650 mg PO Q4H PRN PRN Reason: Pain or Fever Stop: 10/04/21 11:13 Al Hydrox/Mg Hydrox/Simethicone (Aluminum/Magnesium Susp 30 Ml Udc) 15 ml PO Q4H PRN PRN Reason: Dyspepsia Stop: 10/04/21 11:13 Amiodarone HCl (Amiodarone 200 Mg Tab) 100 mg PO QAM [facility] Stop: 10/05/21 08:59 Last Admin: 09/06/21 07:55 Dose: 100 mg Apixaban (Apixaban 2.5 Mg Tab) 2.5 mg PO BID [facility] Stop: 10/04/21 20:59 Last Admin: 09/06/21 07:55 Dose: 2.5 mg Docusate Sodium (Docusate Sodium 100 Mg Cap) 100 mg PO HS [facility] Stop: 10/04/21 20:59 Last Admin: 09/05/21 20:41 Dose: Not Given Hydroxyzine HCl (Hydroxyzine Hcl 10 Mg Tab) 10 mg PO Q6 PRN PRN Reason: anxiety Stop: 10/05/21 13:31 Lisinopril (L[facility]opril 5 Mg Tab) [facility] [place] Stop: 10/05/21 08:59 Last Admin: 09/05/21 08:59 Dose: 5 mg Magnesium Hydroxide (Magnesium Hydroxide Susp 30 Ml Udc) 30 ml PO Q12H PRN PRN Reason: Constipation Stop: 10/04/21 11:13 Magnesium Oxide (Magnesium Oxide 400 Mg Tab) 400 [facility] [place] Stop: 10/05/21 08:59 Last Admin: 09/05/21 08:59 Dose: 400 mg Melatonin (Melatonin 3 Mg Tab) 6 mg PO [facility] Stop: 10/05/21 20:59 Last Admin: 09/05/21 21:27 Dose: 6 mg Metoprolol Tartrate (Metoprolol Tartrate 25 Mg Tab) 25 mg PO BID [facility] Stop: 10/04/21 11:13 Last Admin: 09/06/21 07:55 Dose: 25 mg Mirtazapine (Mirtazapine Tab 15 Mg Tab) 15 mg PO [facility] Stop: 10/05/21 20:59 Last Admin: 09/05/21 20:40 Dose: 15 mg Pantoprazole Sodium (Pantoprazole 40 Mg Tab) 40 mg PO QAM [facility] Stop: 10/04/21 11:13 Last Admin: 09/06/21 07:55 Dose: 40 mg Polyethylene Glycol (Polyethylene (Miralax) 17 Gm Pack) 17 gm PO DAILY PRN PRN Reason: Constipation Stop: 10/04/21 11:13
[2021-09-06 09:05] LABS: Basophils # (auto) 0.03 K/uL (0-0.2); Basophils % (auto) 0.5 %; Eosinophils % (auto) 1.5 %; Hematocrit (blood only) 37.3 % (34.1-44.9); Hemoglobin 12.3 g/dl (12.0-16.0); Immature Granulocytes # (auto) 0.02 K/uL (0.00-0.02); Immature Granulocytes % (auto) 0.3 %; Lymphocytes # (auto) 1.46 K/uL (1.2-3.4); Mean Corpuscular Hemoglobin 28.1 pg (25.0-34.0); Mean Corpuscular Volume 85.2 fL (80.0-100.0); Mean Platelet Volume 9.4 fL (9.4-12.3); Monocytes # (auto) 0.32 K/uL (0.24-0.82); Monocytes % (auto) 4.8 %; Neutrophils # (auto) 4.71 K/uL (1.4-6.5); Neutrophils % (auto) 70.9 %; Platelet Count 232 K/uL (130-400); RDW Coefficient of Variation 14.4 % (11.5-14.5); RDW Standard Deviation 44.3 fL (36.4-46.3); Red Blood Count 4.38 M/uL (3.93-5.22); White Blood Count 6.64 K/ul (4.8-10.8)
[2021-09-06 09:06] LABS: Marijuana Quant, GCMS Urine 473 ng/mL (<5)
[2021-09-06 09:36] LABS: Calcium 8.7 mg/dl (8.5-10.1); Creatinine Clr Calc Pharmacy 40.2 ml/min; Est GFR (African American) 73.5 ml/min; Est GFR (Non-African American) 63.4 ml/min; Potassium 3.5 mmol/L (3.5-5.1)
[2021-09-06] MEDS: MAGNESIUM OXIDE 400 MG TAB PO SCH (10:16)
--- NOTE | 2021-09-06 14:05 | Cardiology Progress Note ---
Date of Service September 06, 2021 Assessment & Plan (1) Abdominal pain: (2) Nausea & vomiting: (3) Elevated troponin: (4) Altered mental status: (5) Pacemaker: Plan 89-year-old admitted with multiple complaints possibly medication induced superimposed on acute anxiety reaction. Do not suspect acute coronary syndrome or ischemia. Would continue usual cardiac medications Patient to avoid THC/CBD therapies Admission and Anticipated Discharge Date Admission Date: September 04, 2021 Subjective Patient seen and examined, chart, telemetry reviewed. Patient back to baseline no acute complaints or concerns mentation issues have cleared. No abdominal pain or back pain, no chest pain Review of Systems Review of Systems: All systems reviewed & are unremarkable except as noted in Subjective Physical Exam Constitutional: + lethargic; no acute distress Eyes: PERRL, conjunctivae normal, anicteric sclerae ENMT: external ear and nose normal, oropharynx normal Neck: trachea midline, no thyromegaly Respiratory: Auscultation: + diminished lung sounds Cardiovascular: Rate/Rhythm: regular rate and regular rhythm Heart Sounds: + murmur (Grade 2 over 6 systolic) Vessels: no JVD Extremities: no edema Gastrointestinal (Abdomen): normal bowel sounds, soft, nontender, no hepatosplenomegaly Results & Data ([facility]) Vital Signs (Past 12 Hours) Vital Signs Temp Pulse Resp BP BP Pulse Ox O2 Del Method 09/06/21 11:13 36.5 C 87 19 111/65 95 Room Air 09/06/21 11:09 36.8 C 71 19 123/56 L 146/64 H 96 09/06/21 07:00 Room Air 09/06/21 07:13 36.8 C 71 19 146/64 H 96 Room Air Laboratory Results Laboratory Results - last 24 hr 09/04/21 09/05/21 09/06/21 08:15 15:49 08:23 WBC 6.64 RBC 4.38 Hgb 12.3 Hct 37.3 MCV 85.2 MCH 28.1 MCHC 33.0 RDW Std Deviation 44.3 RDW Coeff of Coleman 14.4 Plt Count 232 MPV 9.4 Immature Gran % (Auto) 0.3 Neut % (Auto) 70.9 Lymph % (Auto) 22.0 Hubbard % (Auto) 4.8 Eos % (Auto) 1.5 Baso % (Auto) 0.5 Neut # (Auto) 4.71 Lymph # (Auto) 1.46 Hubbard # (Auto) 0.32 Eos # (Auto) 0.10 Baso # (Auto) 0.03 Immature Gran # (Auto) 0.02 Sodium Potassium Chloride Carbon Dioxide Anion Gap BUN Creatinine Est Cr Clr Drug Dosing Est GFR ( Amer) Est GFR (Non-Af Amer) BUN/Creatinine Ratio Glucose POC Glucose 85 Calcium U Marijuana THC Carboxy 473 H Drug Screen Comment SEE NOTE 09/06/21 08:23 WBC RBC Hgb Hct MCV MCH MCHC RDW Std Deviation RDW Coeff of Coleman Plt Count MPV Immature Gran % (Auto) Neut % (Auto) Lymph % (Auto) Hubbard % (Auto) Eos % (Auto) Baso % (Auto) Neut # (Auto) Lymph # (Auto) Hubbard # (Auto) Eos # (Auto) Baso # (Auto) Immature Gran # (Auto) Sodium 142 Potassium 3.5 Chloride 106 Carbon Dioxide 32 Anion Gap 4 BUN 9 Creatinine 0.82 Est Cr Clr Drug Dosing 40.2 Est GFR ( Amer) 73.5 Est GFR (Non-Af Amer) 63.4 BUN/Creatinine Ratio 11.0 Glucose 147 H POC Glucose Calcium 8.7 U Marijuana THC Carboxy Drug Screen Comment
--- NOTE | 2021-09-06 14:46 | Discharge Summary ---
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 Patient lives at home with her . Her daughter came into town late last evening at approximately 8 PM. Her daughter came into town for the of her father. Last evening they had BLTs for dinner and woke up until about 11 PM. She states her and her daughter had a roasted toasted Niki alcoholic beverage prior to going to bed. She has had this in the past. There is no known sick contacts. Per at approximately 3 AM patient woke up. He asked her to get out of bed to get him something and when she did she was groaning complaining of abdominal pain. She also had episode of vomiting. He felt like she was unable to get her words out and felt more confused. Due to symptoms not improving EMS was summoned. She did receive IV fentanyl for pain in route. She also received IV Zofran without improvement and then was administered IV Phenergan in ER. In ED patient remained hemodynamically stable. Her CBC and CMP was generally unremarkable except for mild elevation in glucose at 185. Her initial troponin was unremarkable and repeat in 4 hours was 44.1. Her urinalysis was negative for bacteria. Head and neck CTs were obtained which revealed postsurgical changes in the left calvarium but no other acute abnormality. Head CT revealed cerebral cortical atrophy and remote small vessel disease but no acute change. CT abdomen pelvis negative for acute abnormality. In ED she received IV fentanyl, IV Zofran, IV Phenergan and IV fluid. During my evaluation her mental status improved significantly. Currently she states she overall feels weak. She does recall waking up at 3 AM and just generally feeling weak and unwell. She recalls all events. She denies any recent illness, fever, chills, sweats, lightheadedness, dizziness, chest pain, shortness of breath at rest, hemoptysis, dysuria, increased urgency or frequency with urination, melena or hematochezia. Has been a few days and she had a bowel movement. She does complain of SANCHEZ specifically when doing ADLs or IADLs. She feels this is unchanged. She denies any tobacco use. She does occasionally drink alcohol, specifically glass of wine before dinner. Admission Exam Per Admitting Provider Constitutional: Elderly, weak, female, WD/WN, vitals as above, NAD, lying in bed, initially drowsy but after further conversation does arouse, pleasant, conversing easily Head: Normocephalic, Atraumatic Eyes: PERRL, conjunctivae normal, anicteric sclerae ENMT: external ear and nose normal, oropharynx normal Neck: trachea midline, no thyromegaly normal visual inspection Respiratory: normal respiratory effort, lungs clear to auscultation, no wheeze, rales, rhonchi. Normal insp/exp effort, no accessory muscle use Cardiovascular: RRR, 2/6 DYLON noted throughout precordium, best RUSB, no edema Vessels: no JVD or carotid bruit Chest: normal inspection of chest Abdomen: normal bowel sounds, soft, nontender, no hepatosplenomegaly Musculoskeletal: no cyanosis or clubbing, extremities motor strength 5/5 Skin: no rashes, warm and dry normal turgor Neurologic: PERRL, EOMI, accommodation nl, no face palsy, no dysarthria CN's II-XI intact bilaterally and moves all extremities Psychiatric: A+Ox3, euthymic affect Lymphatic: no cervical or axillary lymphadenopathy : deferred Principal Diagnosis Anxiety, fatigue Discharge Exam General- No acute distress Head- atraumatic Eyes- PERRL, EOMI, ENT- oropharynx clear Neck- supple, no JVD Lungs- clear to auscultation Heart- regular rhythm; +murmur Abdomen- normal bowel sounds, soft, nontender Extremities- no calf tenderness Neuro- alert, oriented x 3; PERRL, EOMI; no facial palsy; no dysarthria Skin- warm & dry. Discharge Data Allergies Allergy/AdvReac Type Severity Reaction Status Date / Time adhesive Allergy Unknown RASH, Verified 04/29/21 10:30 REDDNESS AT SITE codeine Allergy Unknown RASH, Verified 04/29/21 10:30 SEVERE ITCHING metronidazole Allergy Unknown SEVERE Verified 04/29/21 10:30 YEAST/VAGINAL INFX morphine Allergy Unknown IRREGULAR Verified 04/29/21 10:30 HEART RATE, EXTREME SEDATION propoxyphene AdvReac Unknown A-FIB Verified 04/29/21 10:30 Consultations 09/04/21 08:04 ED Decision to Admit Stat 09/04/21 09:41 Consult Cardiology Routine Ordered Studies 09/04/21 04:41 CT abd pelvis IV con only Stat 09/04/21 05:40 CT angio head w con Stat CT angio neck with con Stat CT head/brain wo con Stat 09/05/21 08:00 CT head/brain wo con Routine Hospital Course (1) Abdominal pain: (2) Nausea & vomiting: (3) NSTEMI (non-ST elevated myocardial infarction): (4) Paroxysmal atrial fibrillation: (5) Pacemaker: (6) HTN (hypertension): (7) Hyperlipidemia: (8) History of TIA (transient ischemic attack): Plan This is a 89-year-old female who has a significant past medical history of PAF anticoagulated on Eliquis, history of TBI status post PPM, history of brain aneurysm status post clipping, HTN, HLD, 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 Pt presented to ED after having episode at approx 0300 with upper abd pain, nausea, vomiting and reported confusion. ER work up mostly unremarkable; however 2nd troponin did bump from 13 to 44.1. Confusion, abd pain, n/v has since resolved. She remains drowsy but arouses easily to verbal stimuli. No focal neuro deficits on exam Elevated trop - resolved admit to PCU - can downgrade to med/surg advanced to heart healthy diet trops peaked and decreased, ECG without ischemic changes consult cardiology repeat CT head unremarkable PT/OT/ST - symptoms likely related to anxiety and sleep depravation - continue melatonin for sleep - continue prn hydroxyzine for acute anxiety - continue mirtazapine for anxiety and sleep for longer term control - will likely benefit from following up with PCP for further management of anxiety - ok for discharge today 09/06/2021 PAF continue amiodarone, metoprolol continue eliquis Hx of TBS s/p PPM interrogate pacer to determine if any underlying event occurred around ~ 3am HTN bp stable continue lisinopril, metoprolol HX of RUL Lung ca s/p Lobectomy Hx of brain aneurysm s/p clipping DVT ppx: elidharais Dispo: PCU PCP: Murphy DNR/DNI Izaiah Vallejo MD [facility] Medicine Total Time Total Time Spent Total Time Spent (In Minutes): 30 minutes Total Time Includes: Examination of the Patient, Discharge Planning, Medication Reconciliation and Communication With Other Providers Discharge Plan Discharge Items Patient Disposition: Home - Self-Care Reason For Visit: CONFUSION, ABDOMINAL PAIN, N/V Discharge Diagnosis: anxiety Condition on Discharge: Fair Activity: Resume your previous activity Non-emergency contact: Primary Care Provider Call non-emergency contact if: you have any medication questions and your symptoms worsen Follow-up/Referrals: Chung Arrington DO [Primary Care Provider] - Diet: Heart Healthy Addtl Attending Provider Instructions: You were admitted to rule out cardiac problems, which were negative. You also had extreme anxiety and lack of sleep that was making it worse. You recovered very well and were started on mirtazapine (Remron) for anxiety and sleep as well as hydroxyzine, as needed, for acute anxiety. Please follow up with your primary care doctor to help manage these medications going forward. Pending Studies at Discharge: No Stand-Alone Forms: My [facility] Consult, Smoking Cessation Medications and DC Order Prescriptions: New melatonin 3 mg Tablet 6 mg PO HS Qty: 30 0RF mirtazapine 15 mg Tablet 15 mg PO HS Qty: 30 0RF hydroxyzine HCl 10 mg Tablet 10 mg PO Q6 PRN (Reason: anxiety) Qty: 20 0RF Continued melatonin 10 mg tablet 10 mg PO HS PRN (Reason: Sleep) lisinopril 5 mg Tablet 5 mg PO QAM calcium carbonate [Calcium 600] 600 mg calcium (1,500 mg) Tablet 600 mg PO 3XWK PRN (Reason: takes sporadically) Rx Instructions: TAKE THIS MEDICATION EVERY THURSDAY,THURSDAY AND THURSDAY magnesium oxide 400 mg magnesium Tablet 400 mg PO QAM docusate sodium [Stool Softener] 100 mg Capsule 100 mg PO HS PRN (Reason: Constipation) omega [id number]-[id number]-fish oil [Fish Oil] 1,200 (144-216) mg Capsule 2 cap PO BID amiodarone 200 mg Tablet 100 mg PO QAM pantoprazole 40 mg Tablet,Delayed Release (Dr/Ec) 40 mg PO QAM Glucosamine Chondroitin 550-30-1 mg Capsule 2 cap PO QAM Eliquis 2.5 mg Tablet 2.5 mg PO BID magnesium hydroxide [Milk of Magnesia] 400 mg/5 mL Suspension 15 ml PO DAILY PRN (Reason: Constipation) metoprolol tartrate 25 mg Tablet 25 mg PO BID Qty: 0 0RF Rx Instructions: 50mg in the AM 25mg in the PM furosemide [Lasix] 20 mg tablet 20 mg PO 2XWK PRN (Reason: sweling and weight gain) Qty: 30 0RF Discontinued diphenhydramine HCl [Sleep Aid (diphenhydramine)] 25 mg Capsule 25 mg PO HS PRN (Reason: Sleep) Discharge Orders: Discharge Order (Routine); Ordered 09/06/21 Ordered By: Izaiah Vallejo Admission Data Admit Date/Time: 09/04/21 09:30 Attending Provider: Izaiah Vallejo Admit Provider: Colby Randall Primary Care Provider: Chung Arrington Other Providers: S[place] ; Colby Randall Other Interventions: Discharge Summary Assessment (RN) Last Done: 09/06/21 11:09
== END 2021-09-06 12:59 | disposition home or self-care (01) ==
LOC: ED 04:29 → EDINP 09:30 → SUATTDRO 09:30 → INTOOBSV 09:30 → 2E 14:12

== ENCOUNTER 2021-09-15 19:37 | Observation (INO) ==
[2021-09-15] MEDS ORDERED: SODIUM CHLORIDE 0.9% 1000ML 1,000 ML IV STA (19:43)
--- NOTE | 2021-09-15 19:46 | Emergency Department Note ---
Impression & Plan Chest pain, Atrial fibrillation and flutter ED Provider Note NAME: FAHAD RICH AGE: 89 SEX: F : 1930 ARRIVES VIA: Ambulance INFORMANT: Patient, ED PROVIDER(S): Deshawn Grigsby MD Chief Complaint: Chest pain HPI: The patient did just have an echocardiogram 11 days prior showed that there is no significant change from comparison study. Patient has normal left ventricular size with moderate concentric left ventricular hypertrophy and left ventricular ejection fraction was normal at 6065%. Grade 1 diastolic dysfunction with moderate aortic valve sclerosis. There is mild mitral regurg. Patient does have a known history of chronic left bundle. Patient did have a cardiac cath in November 2010 without obstructive coronary disease. I did receive a medical command call due to concern for chest pain. The patient did receive 2 nitro in route as well as 50 mcg of fentanyl. Patient states that this did improve her chest pain. The patient states that the chest pain is diffuse all over and is "bad." Patient states that started around maybe 630. Patient denies any nausea vomiting or sweating episodes. Patient denies any leg pain. The patient denies any recent falls or trauma. The patient does follow with Dr. Fox as well as Dr. Bay. The patient is taking her medications. Patient denies any history of DVT or PE. Patient does have a pacemaker she states. Patient also does have a history of A. fib. ROS: See HPI for pertinent positives and negatives. A total of 10 systems were reviewed and otherwise negative. Past medical history: See below Surgical history: See below Social history: See below Physical Exam: GENERAL: NAD, wearing a mask, non-toxic. Tearful. Visibly anxious EYE EXAM: Normal conjunctiva. PERRL, no anisocoria and EOM's grossly intact w/o pain. NECK: Supple, no nuchal rigidity, no adenopathy, non-tender. No signs of meningismus. FROM of the neck with good chin to chest and neck extension. No stridor. LUNGS: Clear to auscultation. Normal chest wall mechanics. HEART: NSR, no MRG. ABDOMEN: Abdomen soft, non-tender, normo-active bowel sounds, no masses, no rebound or guarding. BACK: No CVA TTP. SKIN: No rashes and no bruising. UPPER EXTREMITIES: Upper extremities are grossly normal. LOWER EXTREMITIES: Grossly normal, no edema. Negative Homans' sign bilaterally, good bilateral DP pulses and well-perfused, no obvious erythema or swelling bilaterally. NEURO EXAM: A&O x3, cranial nerves II-XII grossly intact, slow deliberate speech, moves all 4 extremities. Differential diagnoses: Cardiac ischemia, aortic dissection, pulmonary embolism, pneumothorax, pneumonia, pericarditis, myocarditis, esophageal rupture, GERD, cholecystitis, pancreatitis, musculoskeletal, as well as other pathologies. Course: Patient was seen and evaluated the bedside. Full history physical exam was performed. EKG interpreted by me Sinus tachycardia, rate of 106, wide QRS, left lateral branch block pattern, left axis deviation. No obvious sgarbossa criteria. EKG appears grossly unchanged from comparison EKG September 04, 2021. The patient's rate is faster. Imaging Studies: 1 view chest x-ray interpreted by me No obvious pneumothorax or pleural effusion. No obvious pneumonia. Cardiac monitoring: An order was placed for continuous cardiac monitoring. The monitor shows a rate of 92 with sinus rhythm. MDM: Patient presents due to concern for chest pain. Blood work was obtained along with an EKG troponin chest x-ray. EKG does not show any obvious scar Bosa criteria. The patient was ordered a small amount of Ativan. The patient had already received fentanyl nitro and full dose aspirin. Patient states that this did improve her discomfort. The patient was recently seen and evaluated by cardiology 11 days prior and had a negative echo. Believe aneurysm or dissection to be less likely. The patient is anticoagulated and has no evidence of DVT on exam. Believe PE to be less likely. Patient blood work shows a normal white count H&H and platelet count. The patient's kidney function is unremarkable. The patient's troponin is not elevated. COVID-negative. Patient's chest x-ray with no obvious pneumonia or pleural effusion. As per the [employer] rep he stated the patient was in a likely A. fib flutter with a rate in the 130s to 170s which lasted for approximately 69 minutes. Do believe that this is the likely etiology and cause of the patient's palpitations and chest discomfort. Patient is on amiodarone and does have a pacemaker in place. I did offer speaking with cardiology for further recommendations versus admission for observation telemetry and cardiology consultation. Patient family would prefer inpatient treatment es pecially in light of the patient's being less capable of bringing her back if need be. I did speak with the on-call hospitalist Dr. Polo and the patient was admitted to the medicine service. 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 Bay History of lung cancer 1993- s/p RUL lung resection History of trigger finger multiple to both hands Hyperlipidemia Hypertension Longstanding LBBB (left bundle branch block) Chronic per cardio records Pacemaker Placed Mar 16, 2020> [facility] > follows Dr. 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 Bay SOB (shortness of breath) TIA (transient ischemic attack) no further issues > 2017 > doesn't follow neuro Surgical History H/O section x1 H/O hemorrhoidectomy H/O ultrasound guided needle biopsy of lung History of cardiac cath 2010 - no obstructive CAD History of carpal tunnel release bilat History of cataract surgery bilat History of colon resection 8 inches > 2001 History of colonoscopy History of hysterectomy History of lung surgery 1993 > RUL > due to cancer > no chemo/radiation History of right shoulder replacement reverse History of spinal surgery Hx of cholecystectomy Hx of exploratory thoracotomy Family History Aunt Diabetes Other Abdominal aortic aneurysm Stroke Social History Smoking Status: Current some day smoker Tobacco Type: Cigarettes Second Hand Exposure: No; Hx Alcohol Use: No Hx Substance Use: No Preferred Language: Belarusian Communication Ability: Effective Visual Impairment: Limited Hearing Ability: Hard of Hearing In Mold Coater Required: No Beliefs That Will Affect Care: None marital status: Current Living Situation: Spouse How many Children do You have: 1 Feels Safe at Home: Yes Assistive Devices: None Allergies Allergies Allergy/AdvReac Type Severity Reaction Status Date / Time adhesive Allergy Unknown RASH, Verified 09/15/21 22:13 REDDNESS AT SITE codeine Allergy Unknown RASH, Verified 09/15/21 22:13 SEVERE ITCHING metronidazole Allergy Unknown SEVERE Verified 09/15/21 22:13 YEAST/VAGINAL INFX morphine Allergy Unknown IRREGULAR Verified 09/15/21 22:13 HEART RATE, EXTREME SEDATION propoxyphene AdvReac Unknown A-FIB Verified 09/15/21 22:13 Home Meds Home Medications Medication Instructions Recorded Confirmed lisinopril 5 mg tablet 5 mg PO QAM 01/30/18 09/15/21 melatonin 10 mg tablet 10 mg PO HS PRN Sleep 10/26/18 09/15/21 magnesium oxide 400 mg PO QAM 12/31/19 09/15/21 docusate sodium 100 mg capsule 100 mg PO HS PRN Constipation 03/10/20 09/15/21 (Stool Softener) omega 1-rpm-btb-fish oil 1,200 mg 2 cap PO BID 03/10/20 09/15/21 (144 mg-216 mg) capsule (Fish Oil) amiodarone 200 mg tablet 100 mg PO QAM 05/03/20 09/15/21 apixaban 2.5 mg tablet (Eliquis) 2.5 mg PO BID 05/03/20 09/15/21 glucosamine sulf dipot 2 cap PO QAM 05/03/20 09/15/21 chlr,msm,chond 550 mg-C 30 mg-yennifer 1 mg capsule (Glucosamine Chondroitin) pantoprazole 40 mg tablet,delayed 40 mg PO QAM 05/03/20 09/15/21 release magnesium hydroxide 400 mg/5 mL 15 ml PO DAILY PRN Constipation 05/25/20 09/15/21 oral suspension (Milk of Magnesia) Previous Rx's Medication Instructions Recorded furosemide 20 mg tablet (Lasix) 20 mg PO 2XWK PRN sweling and 10/30/20 weight gain #30 tabs metoprolol tartrate 25 mg tablet 25 mg PO BID #0 tabs 10/30/20 hydroxyzine HCl 10 mg tablet 10 mg PO Q6 PRN anxiety #20 tabs 09/06/21 melatonin 3 mg tablet 6 mg PO HS #30 tabs 09/06/21 mirtazapine 15 mg tablet 15 mg PO HS #30 tabs 09/06/21 Results & Data (ED) Vital Signs Vital Signs - 24 hr 09/15/21 19:53 09/15/21 19:53 09/15/21 19:53 Temperature 36.6 C Temperature Source Oral Pulse Rate 99 H Pulse Rate [Apical] Pulse Rate from SpO2 Sensor Pulse Rhythm [Apical] Pulse Strength [Apical] Respiratory Rate 24 Respiratory Effort / Characteristics Spontaneous Grunting Moaning Respiratory Depth Normal Respiratory Pattern Blood Pressure 107/54 L Blood Pressure [Right Arm] Blood Pressure Mean 71 Blood Pressure Mean [Right Arm] Blood Pressure Position [Right Arm] Pulse Oximetry 96 96 Oxygen Delivery Method Room Air Room Air Room Air Sepsis Recent Fever Within 48 Hours No Sepsis New/Unexplained Change in Mental Status N/A Sepsis Action Taken by Nursing No Action Required 09/15/21 19:53 09/15/21 19:45 09/15/21 19:46 Temperature Temperature Source Pulse Rate 109 H 110 H Pulse Rate [Apical] Pulse Rate from SpO2 Sensor 259 H Pulse Rhythm [Apical] Pulse Strength [Apical] Respiratory Rate 21 21 Respiratory Effort / Characteristics Respiratory Depth Respiratory Pattern Blood Pressure Blood Pressure [Right Arm] Blood Pressure Mean Blood Pressure Mean [Right Arm] Blood Pressure Position [Right Arm] Pulse Oximetry 96 94 Oxygen Delivery Method Room Air Room Air Room Air Sepsis Recent Fever Within 48 Hours Sepsis New/Unexplained Change in Mental Status Sepsis Action Taken by Nursing 09/15/21 19:46 09/15/21 19:50 09/15/21 20:00 Temperature Temperature Source Pulse Rate 105 H Pulse Rate [Apical] Pulse Rate from SpO2 Sensor 105 H Pulse Rhythm [Apical] Pulse Strength [Apical] Respiratory Rate 16 Respiratory Effort / Characteristics Respiratory Depth Respiratory Pattern Blood Pressure 111/75 107/54 L Blood Pressure [Right Arm] Blood Pressure Mean 87 71 Blood Pressure Mean [Right Arm] Blood Pressure Position [Right Arm] Pulse Oximetry 93 Oxygen Delivery Method Room Air Room Air Room Air Sepsis Recent Fever Within 48 Hours Sepsis New/Unexplained Change in Mental Status Sepsis Action Taken by Nursing 09/15/21 20:00 09/15/21 20:10 09/15/21 20:20 Temperature Temperature Source Pulse Rate 98 H 99 H 95 H Pulse Rate [Apical] Pulse Rate from SpO2 Sensor 99 H 98 H 95 H Pulse Rhythm [Apical] Pulse Strength [Apical] Respiratory Rate 18 18 13 Respiratory Effort / Characteristics Respiratory Depth Respiratory Pattern Blood Pressure Blood Pressure [Right Arm] Blood Pressure Mean Blood Pressure Mean [Right Arm] Blood Pressure Position [Right Arm] Pulse Oximetry 94 92 92 Oxygen Delivery Method Room Air Room Air Room Air Sepsis Recent Fever Within 48 Hours Sepsis New/Unexplained Change in Mental Status Sepsis Action Taken by Nursing 09/15/21 20:30 09/15/21 20:30 09/15/21 20:40 Temperature Temperature Source Pulse Rate 90 90 Pulse Rate [Apical] Pulse Rate from SpO2 Sensor 89 90 Pulse Rhythm [Apical] Pulse Strength [Apical] Respiratory Rate 16 16 Respiratory Effort / Characteristics Respiratory Depth Respiratory Pattern Blood Pressure 94/52 L Blood Pressure [Right Arm] Blood Pressure Mean 66 Blood Pressure Mean [Right Arm] Blood Pressure Position [Right Arm] Pulse Oximetry 94 96 Oxygen Delivery Method Room Air Room Air Room Air Sepsis Recent Fever Within 48 Hours Sepsis New/Unexplained Change in Mental Status Sepsis Action Taken by Nursing 09/15/21 20:50 09/15/21 21:00 09/15/21 21:00 Temperature Temperature Source Pulse Rate 90 88 Pulse Rate [Apical] Pulse Rate from SpO2 Sensor 90 88 Pulse Rhythm [Apical] Pulse Strength [Apical] Respiratory Rate 16 16 Respiratory Effort / Characteristics Respiratory Depth Respiratory Pattern Blood Pressure 103/52 L Blood Pressure [Right Arm] Blood Pressure Mean 69 Blood Pressure Mean [Right Arm] Blood Pressure Position [Right Arm] Pulse Oximetry 96 96 Oxygen Delivery Method Room Air Room Air Room Air Sepsis Recent Fever Within 48 Hours Sepsis New/Unexplained Change in Mental Status Sepsis Action Taken by Nursing 09/15/21 21:10 09/15/21 21:20 09/15/21 21:30 Temperature Temperature Source Pulse Rate 85 84 Pulse Rate [Apical] Pulse Rate from SpO2 Sensor 85 85 Pulse Rhythm [Apical] Pulse Strength [Apical] Respiratory Rate 16 14 Respiratory Effort / Characteristics Respiratory Depth Respiratory Pattern Blood Pressure 99/50 L Blood Pressure [Right Arm] Blood Pressure Mean 66 Blood Pressure Mean [Right Arm] Blood Pressure Position [Right Arm] Pulse Oximetry 95 96 Oxygen Delivery Method Room Air Room Air Room Air Sepsis Recent Fever Within 48 Hours Sepsis New/Unexplained Change in Mental Status Sepsis Action Taken by Nursing 09/15/21 21:30 09/15/21 21:40 09/15/21 21:50 Temperature Temperature Source Pulse Rate 86 91 H 87 Pulse Rate [Apical] Pulse Rate from SpO2 Sensor 87 91 H 87 Pulse Rhythm [Apical] Pulse Strength [Apical] Respiratory Rate 15 22 16 Respiratory Effort / Characteristics Respiratory Depth Respiratory Pattern Blood Pressure Blood Pressure [Right Arm] Blood Pressure Mean Blood Pressure Mean [Right Arm] Blood Pressure Position [Right Arm] Pulse Oximetry 96 95 97 Oxygen Delivery Method Room Air Room Air Room Air Sepsis Recent Fever Within 48 Hours Sepsis New/Unexplained Change in Mental Status Sepsis Action Taken by Nursing 09/15/21 22:00 09/15/21 22:00 09/15/21 22:10 Temperature Temperature Source Pulse Rate 86 86 Pulse Rate [Apical] Pulse Rate from SpO2 Sensor 86 86 Pulse Rhythm [Apical] Pulse Strength [Apical] Respiratory Rate 17 18 Respiratory Effort / Characteristics Respiratory Depth Respiratory Pattern Blood Pressure 105/49 L Blood Pressure [Right Arm] Blood Pressure Mean 67 Blood Pressure Mean [Right Arm] Blood Pressure Position [Right Arm] Pulse Oximetry 98 95 Oxygen Delivery Method Room Air Room Air Room Air Sepsis Recent Fever Within 48 Hours Sepsis New/Unexplained Change in Mental Status Sepsis Action Taken by Nursing 09/15/21 23:53 Temperature Temperature Source Pulse Rate Pulse Rate [Apical] 86 Pulse Rate from SpO2 Sensor Pulse Rhythm [Apical] Regular Pulse Strength [Apical] Normal Respiratory Rate 20 Respiratory Effort / Characteristics Non-Labored Spontaneous Respiratory Depth Normal Respiratory Pattern Regular Blood Pressure Blood Pressure [Right Arm] 115/54 L Blood Pressure Mean Blood Pressure Mean [Right Arm] 74 Blood Pressure Position [Right Arm] Semi-fowlers Pulse Oximetry 97 Oxygen Delivery Method Room Air Sepsis Recent Fever Within 48 Hours Sepsis New/Unexplained Change in Mental Status Sepsis Action Taken by Custodial Medications Current Medication List: was personally reviewed by me Laboratory Data Attestation: I reviewed the patient's lab results. Result diagrams: 09/15/21 19:46 09/15/21 19:46 Lab Results 09/15/21 09/15/21 09/15/21 Range/Units 19:46 19:46 19:46 WBC 6.63 (4.8-10.8) K/ul RBC 4.37 (3.93-5.22) M/uL Hgb 12.3 (12.0-16.0) g/dl Hct 36.7 (34.1-44.9) % MCV 84.0 (80.0-100.0) fL MCH 28.1 (25.0-34.0) pg MCHC 33.5 (32.0-36.0) g/dL RDW Std Deviation 41.7 (36.4-46.3) fL RDW Coeff of Coleman 13.5 (11.5-14.5) % Plt Count 286 (130-400) K/uL MPV 9.1 L (9.4-12.3) fL Immature Gran % (Auto) 0.3 % Neut % (Auto) 57.7 % Lymph % (Auto) 32.7 % [place] % (Auto) 7.4 % Eos % (Auto) 1.1 % Baso % (Auto) 0.8 % Neut # (Auto) 3.83 (1.4-6.5) K/uL Lymph # (Auto) 2.17 (1.2-3.4) K/uL [place] # (Auto) 0.49 (0.24-0.82) K/uL Eos # (Auto) 0.07 (0-0.50) K/uL Baso # (Auto) 0.05 (0-0.2) K/uL Immature Gran # (Auto) 0.02 (0.00-0.02) K/uL PT 10.9 (9.0-12.0) Seconds INR 1.0 (0.9-1.1) APTT 29.1 (21.0-31.0) Seconds PTT Ratio 1.1 Sodium 138 (136-145) mmol/L Potassium 3.5 (3.5-5.1) mmol/L Chloride 105 (98-107) mmol/L Carbon Dioxide 25 (21-32) mmol/L Anion Gap 8 (3-11) BUN 16 (6-23) mg/dl Creatinine 0.83 (0.6-1.2) mg/dl Est Cr Clr Drug Dosing Not Reportable Est GFR ( Amer) 72.5 ml/min Est GFR (Non-Af Amer) 62.5 ml/min BUN/Creatinine Ratio 19.3 (10-20) Glucose 136 H (70-99(Fasting)) mg/dl Calcium 9.1 (8.5-10.1) mg/dl Magnesium (1.7-2.4) mg/dl Total Bilirubin 1.1 H (0.2-1.0) mg/dl AST 11 L (13-39) U/L ALT 3 L (7-52) U/L Alkaline Phosphatase 58 (34-104) U/L Troponin I High Sens 9.9 D (0-14) pg/ml B-Natriuretic Peptide (0-100) pg/ml Total Protein 6.5 (6.0-8.3) gm/dl Albumin 3.8 (3.4-5.0) gm/dl Globulin 2.7 (2.5-4.0) gm/dl Albumin/Globulin Ratio 1.4 (0.9-2) Lipase 35 (11-82) U/L SARS-CoV-2, RNA, NAAT (NEGATIVE) 09/15/21 09/15/21 09/15/21 Range/Units 19:46 22:01 22:55 WBC (4.8-10.8) K/ul RBC (3.93-5.22) M/uL Hgb (12.0-16.0) g/dl Hct (34.1-44.9) % MCV (80.0-100.0) fL MCH (25.0-34.0) pg MCHC (32.0-36.0) g/dL RDW Std Deviation (36.4-46.3) fL RDW Coeff of Coleman (11.5-14.5) % Plt Count (130-400) K/uL MPV (9.4-12.3) fL Immature Gran % (Auto) % Neut % (Auto) % Lymph % (Auto) % [place] % (Auto) % Eos % (Auto) % Baso % (Auto) % Neut # (Auto) (1.4-6.5) K/uL Lymph # (Auto) (1.2-3.4) K/uL [place] # (Auto) (0.24-0.82) K/uL Eos # (Auto) (0-0.50) K/uL Baso # (Auto) (0-0.2) K/uL Immature Gran # (Auto) (0.00-0.02) K/uL PT (9.0-12.0) Seconds INR (0.9-1.1) APTT (21.0-31.0) Seconds PTT Ratio Sodium (136-145) mmol/L Potassium (3.5-5.1) mmol/L Chloride (98-107) mmol/L Carbon Dioxide (21-32) mmol/L Anion Gap (3-11) BUN (6-23) mg/dl Creatinine (0.6-1.2) mg/dl Est Cr Clr Drug Dosing Est GFR ( Amer) ml/min Est GFR (Non-Af Amer) ml/min BUN/Creatinine Ratio (10-20) Glucose (70-99(Fasting)) mg/dl Calcium (8.5-10.1) mg/dl Magnesium 2.0 (1.7-2.4) mg/dl Total Bilirubin (0.2-1.0) mg/dl AST (13-39) U/L ALT (7-52) U/L Alkaline Phosphatase (34-104) U/L Troponin I High Sens 11.9 (0-14) pg/ml B-Natriuretic Peptide (0-100) pg/ml Total Protein (6.0-8.3) gm/dl Albumin (3.4-5.0) gm/dl Globulin (2.5-4.0) gm/dl Albumin/Globulin Ratio (0.9-2) Lipase (11-82) U/L SARS-CoV-2, RNA, NAAT NEGATIVE (NEGATIVE) 09/15/21 Range/Units 22:55 WBC (4.8-10.8) K/ul RBC (3.93-5.22) M/uL Hgb (12.0-16.0) g/dl Hct (34.1-44.9) % MCV (80.0-100.0) fL MCH (25.0-34.0) pg MCHC (32.0-36.0) g/dL RDW Std Deviation (36.4-46.3) fL RDW Coeff of Coleman (11.5-14.5) % Plt Count (130-400) K/uL MPV (9.4-12.3) fL Immature Gran % (Auto) % Neut % (Auto) % Lymph % (Auto) % [place] % (Auto) % Eos % (Auto) % Baso % (Auto) % Neut # (Auto) (1.4-6.5) K/uL Lymph # (Auto) (1.2-3.4) K/uL [place] # (Auto) (0.24-0.82) K/uL Eos # (Auto) (0-0.50) K/uL Baso # (Auto) (0-0.2) K/uL Immature Gran # (Auto) (0.00-0.02) K/uL PT (9.0-12.0) Seconds INR (0.9-1.1) APTT (21.0-31.0) Seconds PTT Ratio Sodium (136-145) mmol/L Potassium (3.5-5.1) mmol/L Chloride (98-107) mmol/L Carbon Dioxide (21-32) mmol/L Anion Gap (3-11) BUN (6-23) mg/dl Creatinine (0.6-1.2) mg/dl Est Cr Clr Drug Dosing Est GFR ( Amer) ml/min Est GFR (Non-Af Amer) ml/min BUN/Creatinine Ratio (10-20) Glucose (70-99(Fasting)) mg/dl Calcium (8.5-10.1) mg/dl Magnesium (1.7-2.4) mg/dl Total Bilirubin (0.2-1.0) mg/dl AST (13-39) U/L ALT (7-52) U/L Alkaline Phosphatase (34-104) U/L Troponin I High Sens (0-14) pg/ml B-Natriuretic Peptide 57 (0-100) pg/ml Total Protein (6.0-8.3) gm/dl Albumin (3.4-5.0) gm/dl Globulin (2.5-4.0) gm/dl Albumin/Globulin Ratio (0.9-2) Lipase (11-82) U/L SARS-CoV-2, RNA, NAAT (NEGATIVE) Administered Medications Discontinued Medications Acetaminophen (Acetaminophen 325 Mg Tab) 650 mg PO NOW STA Stop: 09/15/21 22:42 Last Admin: 09/15/21 23:47 Dose: 650 mg Documented By: KASANDRA Sodium Chloride (Nss 1000ml) 1,000 mls @ 999 mls/hr IV .Q1H1M STA Stop: 09/15/21 20:43 Last Infusion: 09/15/21 21:08 Dose: 0 mls/hr Documented By: Admin: 09/15/21 19:58 Dose: 999 mls/hr Documented By: SANTANA Ioversol (Optiray 320 125ml) 125 ml IV ONCE ONE Stop: 09/15/21 23:19 Last Admin: 09/15/21 23:18 Dose: 118 ml Documented By: DASHA Lorazepam (Lorazepam 2 Mg/1 Ml Vial) 0.5 mg IV NOW STA; Protocol Stop: 09/15/21 19:57 Last Admin: 09/15/21 19:58 Dose: 0.5 mg Documented By: SANTANA Lorazepam (Lorazepam 2 Mg/1 Ml Vial) Confirm Administered Dose 1 mg .ROUTE .STK- MED ONE Stop: 09/15/21 19:58 Last Admin: 09/15/21 19:58 Dose: Not Given Documented By: SANTANA Potassium Chloride (Potassium Chloride Crtab 20 Meq Tabcr) 40 meq PO NOW STA Stop: 09/15/21 22:00 Last Admin: 09/15/21 23:47 Dose: 40 meq Documented By: KASANDRA Discharge Plan Visit Data Chief Complaint: Chest Pain ED Provider: Deshawn Grigsby Discharge Problem: Chest pain, Atrial fibrillation and flutter Patient Disposition: Admitted As Inpatient Forms Stand Alone Forms: [facility] Prescriptions Prescriptions: No Action melatonin 10 mg tablet 10 mg PO HS PRN (Reason: Sleep) lisinopril 5 mg Tablet 5 mg PO QAM magnesium oxide 400 mg magnesium Tablet 400 mg PO QAM docusate sodium [Stool Softener] 100 mg Capsule 100 mg PO HS PRN (Reason: Constipation) omega 2-sfj-oyk-fish oil [Fish Oil] 1,200 (144-216) mg Capsule 2 cap PO BID amiodarone 200 mg Tablet 100 mg PO QAM pantoprazole 40 mg Tablet,Delayed Release (Dr/Ec) 40 mg PO QAM Glucosamine Chondroitin 550-30-1 mg Capsule 2 cap PO QAM Eliquis 2.5 mg Tablet 2.5 mg PO BID magnesium hydroxide [Milk of Magnesia] 400 mg/5 mL Suspension 15 ml PO DAILY PRN (Reason: Constipation) metoprolol tartrate 25 mg Tablet 25 mg PO BID Qty: 0 0RF Rx Instructions: 50mg in the AM 25mg in the PM furosemide [Lasix] 20 mg tablet 20 mg PO 2XWK PRN (Reason: sweling and weight gain) Qty: 30 0RF melatonin 3 mg Tablet 6 mg PO HS Qty: 30 0RF mirtazapine 15 mg Tablet 15 mg PO HS Qty: 30 0RF hydroxyzine HCl 10 mg Tablet 10 mg PO Q6 PRN (Reason: anxiety) Qty: 20 0RF Referrals Referrals: Chung Arrington DO [Primary Care Provider] -
[2021-09-15] MEDS ORDERED: LORazepam 2 MG/1 ML VIAL IV STA (19:56)
[2021-09-15] MEDS ORDERED: LORazepam 2 MG/1 ML VIAL ONE (19:57)
[2021-09-15 20:04] LABS: Basophils # (auto) 0.05 K/uL (0-0.2); Basophils % (auto) 0.8 %; Eosinophils # (auto) 0.07 K/uL (0-0.50); Eosinophils % (auto) 1.1 %; Hematocrit (blood only) 36.7 % (34.1-44.9); Hemoglobin 12.3 g/dl (12.0-16.0); Immature Granulocytes # (auto) 0.02 K/uL (0.00-0.02); Immature Granulocytes % (auto) 0.3 %; Lymphocytes # (auto) 2.17 K/uL (1.2-3.4); Lymphocytes % (auto) 32.7 %; Mean Corpuscular Hemoglobin 28.1 pg (25.0-34.0); Mean Corpuscular Hgb Conc 33.5 g/dL (32.0-36.0); Mean Platelet Volume 9.1 fL (9.4-12.3); Monocytes # (auto) 0.49 K/uL (0.24-0.82); Monocytes % (auto) 7.4 %; Neutrophils # (auto) 3.83 K/uL (1.4-6.5); Neutrophils % (auto) 57.7 %; Platelet Count 286 K/uL (130-400); RDW Coefficient of Variation 13.5 % (11.5-14.5); RDW Standard Deviation 41.7 fL (36.4-46.3); Red Blood Count 4.37 M/uL (3.93-5.22); White Blood Count 6.63 K/ul (4.8-10.8)
[2021-09-15 20:23] LABS: Partial Thromboplastin Ratio 1.1; Partial Thromboplastin Time 29.1 Seconds (21.0-31.0); Prothrombin Time 10.9 Seconds (9.0-12.0)
[2021-09-15 20:27] LABS: Alanine Aminotransferase 3 U/L (7-52); Albumin Globulin Ratio 1.4 (0.9-2); Albumin Level 3.8 gm/dl (3.4-5.0); Alkaline Phosphatase 58 U/L (34-104); Anion Gap 8 (3-11); Aspartate Aminotransferase 11 U/L (13-39); BUN Creatinine Ratio 19.3 (10-20); Bilirubin,Total 1.1 mg/dl (0.2-1.0); Blood Urea Nitrogen 16 mg/dl (6-23); Calcium 9.1 mg/dl (8.5-10.1); Carbon Dioxide 25 mmol/L (21-32); Chloride 105 mmol/L (98-107); Est GFR (African American) 72.5 ml/min; Est GFR (Non-African American) 62.5 ml/min; Globulin 2.7 gm/dl (2.5-4.0); Glucose 136 mg/dl (70-99(Fasting)); Lipase 35 U/L (11-82); Potassium 3.5 mmol/L (3.5-5.1); Sodium 138 mmol/L (136-145); Total Protein 6.5 gm/dl (6.0-8.3)
[2021-09-15 20:30] LABS: Troponin I High Sensitivity 9.9 pg/ml (0-14)
[2021-09-15] MEDS ORDERED: POTASSIUM CHLORIDE CRTAB 20 MEQ TABCR PO STA (21:59)
[2021-09-15] MEDS ORDERED: ACETAMINOPHEN 325 MG TAB PO STA (22:41)
[2021-09-15] MEDS ORDERED: OPTIRAY 320 125ml IV ONE (23:18)
--- NOTE | 2021-09-16 00:12 | History & Physical Report ---
Date of Service September 16, 2021 Assessment & Plan (1) Chest pain: Plan: Somewhat atypical given equivocal response with nitroglycerin at home Musculoskeletal component given reproducibility Possible GI source (gastritis/GERD) given abdominal radiation Anxiety contributory ro ACS, history CAD/PVD/TIA as per records history SSS status post PPM on Eliquis hx lung cancer sp surgery Chronic LBBB Hyperlipidemia on statin Rx Hyperglycemia, likely prediabetes, hemoglobin A1c of 6.17 August 2021 OBS PCU Analgesia Double maintenance PPI dose for now Anxiolytic as needed Follow troponin Cardiology consult Re: Chest pain, history of CAD N.p.o. until patient seen by cardiology in a.m. for possible ischemic work-up DVT prophylaxis. Eliquis if okay with cardiology DNR Patient requests for her to be updated of plan of care. Mr. Jose Payan, contact number #[phone]. Text document was generated using [employer] voice recognition software. It may contain grammatical or spelling errors. Kindly contact undersigned for clarification of any documentation item in question. History of Present Illness Chief Complaint: Chest pain Primary Care Provider: Chung Arrington DO History obtained from patient and records. Medical history significant for COPD, history of pulmonary nodules, lung cancer R sp surgery 1990s, CAD/PVD/TIA as per records, SSS sp PPM on Eliquis, hx SAH, cerebral aneurysm status post clipping, chronic LBBB, hypertension, hyperlipidemia, GERD Last confinement 10 days ago for elevated troponin attributed to anxiety, fatigue symptoms. Intermittent palpitations achy headache symptoms at home the last few days. Patient seen at personal assistant office on follow-up visit last week. Symptoms attributed to anxiety/home stressors. Beta-shawn dose adjusted. 3 days ago, patient noted transient pain between her breasts and abdomen going to the back. PCP prescribed nitroglycerin as needed for pain. Patient had another attack of chest pain relieved by nitroglycerin. Last night, patient had recurrence of chest pain somewhat more intense. Nitroglycerin made her feel sicker. Patient brought to the ER for evaluation. MEDICAL HISTORY: As above. SURGERIES: PPM, Shoulder surgery, lung surgery, bowel surgery. Trigger finger release, MADISYN, carpal tunnel surgery, skin cancer surgery, cholecystectomy FAMILY HISTORY: heart disease. PERSONAL AND SOCIAL HISTORY: Nonsmoker. No chronic intake of ETOH intake. 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 Allergies Allergy/AdvReac Type Severity Reaction Status Date / Time adhesive Allergy Unknown RASH, Verified 09/15/21 22:13 REDDNESS AT SITE codeine Allergy Unknown RASH, Verified 09/15/21 22:13 SEVERE ITCHING metronidazole Allergy Unknown SEVERE Verified 09/15/21 22:13 YEAST/VAGINAL INFX morphine Allergy Unknown IRREGULAR Verified 09/15/21 22:13 HEART RATE, EXTREME SEDATION propoxyphene AdvReac Unknown A-FIB Verified 09/15/21 22:13 Home Medications Medication Instructions Recorded Confirmed Type lisinopril 5 mg tablet 5 mg PO QAM 01/30/18 09/15/21 History melatonin 10 mg tablet 10 mg PO HS PRN Sleep 10/26/18 09/15/21 History magnesium oxide 400 mg PO QAM 12/31/19 09/15/21 History docusate sodium 100 mg capsule 100 mg PO HS PRN Constipation 03/10/20 09/15/21 History (Stool Softener) omega 1-jih-zpi-fish oil 1,200 mg 2 cap PO BID 03/10/20 09/15/21 History (144 mg-216 mg) capsule (Fish Oil) amiodarone 200 mg tablet 100 mg PO QAM 05/03/20 09/15/21 History apixaban 2.5 mg tablet (Eliquis) 2.5 mg PO BID 05/03/20 09/15/21 History glucosamine sulf dipot 2 cap PO QAM 05/03/20 09/15/21 History chlr,msm,chond 550 mg-C 30 mg-yennifer 1 mg capsule (Glucosamine Chondroitin) pantoprazole 40 mg tablet,delayed 40 mg PO QAM 05/03/20 09/15/21 History release magnesium hydroxide 400 mg/5 mL 15 ml PO DAILY PRN Constipation 05/25/20 09/15/21 History oral suspension (Milk of Magnesia) furosemide 20 mg tablet (Lasix) 20 mg PO 2XWK PRN sweling and 10/30/20 09/15/21 Rx weight gain #30 tabs metoprolol tartrate 25 mg tablet 25 mg PO BID #0 tabs 10/30/20 09/15/21 Rx hydroxyzine HCl 10 mg tablet 10 mg PO Q6 PRN anxiety #20 tabs 09/06/21 09/15/21 Rx melatonin 3 mg tablet 6 mg PO HS #30 tabs 09/06/21 09/15/21 Rx mirtazapine 15 mg tablet 15 mg PO HS #30 tabs 09/06/21 09/15/21 Rx Past Med/Surg History Medical History Aneurysm brain> surgery to repair at [place] > 1988 Per records "History of cerebral carotid artery aneurysm clipping 1988 " COVID Dysarthria GERD (gastroesophageal reflux disease) Heart failure follows Dr. Bay History of lung cancer 1993- s/p RUL lung resection History of trigger finger multiple to both hands Hyperlipidemia Hypertension Longstanding LBBB (left bundle branch block) Chronic per cardio records Pacemaker Placed Mar 16, 2020> [facility] > follows Dr. 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 Bay SOB (shortness of breath) TIA (transient ischemic attack) no further issues > 2017 > doesn't follow neuro Surgical History H/O section x1 H/O hemorrhoidectomy H/O ultrasound guided needle biopsy of lung History of cardiac cath 2010 - no obstructive CAD History of carpal tunnel release bilat History of cataract surgery bilat History of colon resection 8 inches > 2001 History of colonoscopy History of hysterectomy History of lung surgery 1993 > RUL > due to cancer > no chemo/radiation History of right shoulder replacement reverse History of spinal surgery Hx of cholecystectomy Hx of exploratory thoracotomy Family History Aunt Diabetes Other Abdominal aortic aneurysm Stroke Social History Smoking Status: Never smoker Tobacco Type: Cigarettes Second Hand Exposure: No; Hx Alcohol Use: No Hx Substance Use: No Preferred Language: Belarusian Communication Ability: Effective Visual Impairment: Limited Hearing Ability: Hard of Hearing Collections Assistant Required: No Beliefs That Will Affect Care: None marital status: Current Living Situation: Spouse How many Children do You have: 1 Feels Safe at Home: Yes Safety Concerns: Feels Safe At This Time Assistive Devices: None Review of Systems Review of Systems: As per HPI, all other systems reviewed and negative Physical Exam Physical Exam: GENERAL: uncomfortable, slightly anxious, no respiratory distress, pleasant, looks younger than stated age SKIN: Normal color, warm HEENT: [place] palpebral conjunctivae, no ptosis, dry buccal mucosa NECK : Supple, no tenderness CHEST : Decreased breath sounds, anterior chest wall tenderness HEART : RRR, systolic murmur ABDOMEN: Some distention, minimal epigastric tenderness EXTREMITIES : No LE swelling/tenderness, no other conspicuous deformities noted NEUROLOGIC : Coherent, no facial asymmetry, no other gross focality Results & Data Results & Data ([facility]) Vital Signs (Past 12 Hours) Vital Signs Temp Pulse Pulse Resp BP BP Pulse Ox 09/15/21 23:53 86 20 115/54 L 97 09/15/21 22:10 86 18 95 09/15/21 22:00 86 17 98 09/15/21 22:00 105/49 L 09/15/21 21:50 87 16 97 09/15/21 21:40 91 H 22 95 09/15/21 21:30 86 15 96 09/15/21 21:30 99/50 L 09/15/21 21:20 84 14 96 09/15/21 21:10 85 16 95 09/15/21 21:00 88 16 96 09/15/21 21:00 103/52 L 09/15/21 20:50 90 16 96 09/15/21 20:40 90 16 96 09/15/21 20:30 90 16 94 09/15/21 20:30 94/52 L 09/15/21 20:20 95 H 13 92 09/15/21 20:10 99 H 18 92 09/15/21 20:00 98 H 18 94 09/15/21 20:00 107/54 L 09/15/21 19:50 105 H 16 93 09/15/21 19:46 111/75 09/15/21 19:46 110 H 21 94 09/15/21 19:45 109 H 21 09/15/21 19:53 96 09/15/21 19:53 96 09/15/21 19:53 36.6 C 99 H 24 107/54 L 96 09/15/21 19:53 O2 Del Method 09/15/21 23:53 Room Air 09/15/21 22:10 Room Air 09/15/21 22:00 Room Air 09/15/21 22:00 Room Air 09/15/21 21:50 Room Air 09/15/21 21:40 Room Air 09/15/21 21:30 Room Air 09/15/21 21:30 Room Air 09/15/21 21:20 Room Air 09/15/21 21:10 Room Air 09/15/21 21:00 Room Air 09/15/21 21:00 Room Air 09/15/21 20:50 Room Air 09/15/21 20:40 Room Air 09/15/21 20:30 Room Air 09/15/21 20:30 Room Air 09/15/21 20:20 Room Air 09/15/21 20:10 Room Air 09/15/21 20:00 Room Air 09/15/21 20:00 Room Air 09/15/21 19:50 Room Air 09/15/21 19:46 Room Air 09/15/21 19:46 Room Air 09/15/21 19:45 Room Air 09/15/21 19:53 Room Air 09/15/21 19:53 Room Air 09/15/21 19:53 Room Air 09/15/21 19:53 Room Air Laboratory Results Laboratory Results WBC 6.63 K/ul (4.8-10.8) 09/15/21 19:46 RBC 4.37 M/uL (3.93-5.22) 09/15/21 19:46 Hgb 12.3 g/dl (12.0-16.0) 09/15/21 19:46 Hct 36.7 % (34.1-44.9) 09/15/21 19:46 MCV 84.0 fL (80.0-100.0) 09/15/21 19:46 MCH 28.1 pg (25.0-34.0) 09/15/21 19:46 MCHC 33.5 g/dL (32.0-36.0) 09/15/21 19:46 RDW Std Deviation 41.7 fL (36.4-46.3) 09/15/21 19:46 RDW Coeff of Coleman 13.5 % (11.5-14.5) 09/15/21 19:46 Plt Count 286 K/uL (130-400) 09/15/21 19:46 MPV 9.1 fL (9.4-12.3) L 09/15/21 19:46 Immature Gran % (Auto) 0.3 % 09/15/21 19:46 Neut % (Auto) 57.7 % 09/15/21 19:46 Lymph % (Auto) 32.7 % 09/15/21 19:46 Sully % (Auto) 7.4 % 09/15/21 19:46 Eos % (Auto) 1.1 % 09/15/21 19:46 Baso % (Auto) 0.8 % 09/15/21 19:46 Neut # (Auto) 3.83 K/uL (1.4-6.5) 09/15/21 19:46 Lymph # (Auto) 2.17 K/uL (1.2-3.4) 09/15/21 19:46 Sully # (Auto) 0.49 K/uL (0.24-0.82) 09/15/21 19:46 Eos # (Auto) 0.07 K/uL (0-0.50) 09/15/21 19:46 Baso # (Auto) 0.05 K/uL (0-0.2) 09/15/21 19:46 Immature Gran # (Auto) 0.02 K/uL (0.00-0.02) 09/15/21 19:46 PT 10.9 Seconds (9.0-12.0) 09/15/21 19:46 INR 1.0 (0.9-1.1) 09/15/21 19:46 APTT 29.1 Seconds (21.0-31.0) 09/15/21 19:46 PTT Ratio 1.1 09/15/21 19:46 Sodium 138 mmol/L (136-145) 09/15/21 19:46 Potassium 3.5 mmol/L (3.5-5.1) 09/15/21 19:46 Chloride 105 mmol/L (98-107) 09/15/21 19:46 Carbon Dioxide 25 mmol/L (21-32) 09/15/21 19:46 Anion Gap 8 (3-11) 09/15/21 19:46 BUN 16 mg/dl (6-23) 09/15/21 19:46 Creatinine 0.83 mg/dl (0.6-1.2) 09/15/21 19:46 Est Cr Clr Drug Dosing Not Reportable 09/15/21 19:46 Est GFR ( Amer) 72.5 ml/min 09/15/21 19:46 Est GFR (Non-Af Amer) 62.5 ml/min 09/15/21 19:46 BUN/Creatinine Ratio 19.3 (10-20) 09/15/21 19:46 Glucose 136 mg/dl (70-99(Fasting)) H 09/15/21 19:46 Calcium 9.1 mg/dl (8.5-10.1) 09/15/21 19:46 Magnesium 2.0 mg/dl (1.7-2.4) 09/15/21 19:46 Total Bilirubin 1.1 mg/dl (0.2-1.0) H 09/15/21 19:46 AST 11 U/L (13-39) L 09/15/21 19:46 ALT 3 U/L (7-52) L 09/15/21 19:46 Alkaline Phosphatase 58 U/L (34-104) 09/15/21 19:46 Troponin I High Sens 11.9 pg/ml (0-14) 09/15/21 22:55 B-Natriuretic Peptide 57 pg/ml (0-100) 09/15/21 22:55 Total Protein 6.5 gm/dl (6.0-8.3) 09/15/21 19:46 Albumin 3.8 gm/dl (3.4-5.0) 09/15/21 19:46 Globulin 2.7 gm/dl (2.5-4.0) 09/15/21 19:46 Albumin/Globulin Ratio 1.4 (0.9-2) 09/15/21 19:46 Lipase 35 U/L (11-82) 09/15/21 19:46 SARS-CoV-2, RNA, NAAT NEGATIVE (NEGATIVE) 09/15/21 22:[address] head initial read: No ICH, mass effect or edema. No evidence of acute cortical stroke. Periventricular small vessel ischemic change. Mild generalized brain atrophy. Visualized sinuses and mastoid air cells are clear. Status post craniotomythrough the left frontal temporal bone and sequela of aneurysmal repair in the left parasellar region. CT chest initial read: There is a left-sided pacemaker in place. There is a right-sided shoulder prosthesis in place. Right upper lobe nodule measuring 8.6 mm, stable in the interval. Left lower lobe atelectasis, remainder of the lung costa are clear. No pleural effusion. No pulmonaryembolus. Atherosclerotic disease of no aneurysmor dissection. Borderline cardiomegaly. Upper abdomen described in the accompanying CT abdomen and pelvis report. Degenerative disease of the spine CT abdomen pelvis initial read: Status post cholecystectomywith nonspecific mild biliarydistention. Normal spleen. Pancreatic atrophyotherwise unremarkable pancreas. Normal bilateral adrenal glands. Atherosclerotic disease of aortawith tortuosity. No aneurysmor dissection. Normal right kidney. Left lower renal cyst measuring 11.3 mm. Otherwise unremarkable left kidney. Normal stomach. Nonspecific small bowel. Diverticulosis of the colon with no signs of diverticulitis. Normal appendix. No bowel obstruction. Normal urinarybladder. Status post hysterectomy. Osteopeniawith degenerative disease of the spine. Small right post lateral buttock lipoma measuring 1.5 cm EKG as per my interpretation :Rate 105, sinus tachycardia, LAD, LAFB, no ischemia
[2021-09-16] MEDS ORDERED: LACTATED RINGER'S 1,000 ML IV ONE (00:19)
[2021-09-16] MEDS ORDERED: NITROGLYCERIN SL 0.4 MG/TAB TAB SL PRN (02:08)
[2021-09-16] MEDS ORDERED: DOCUSATE SODIUM 100 MG CAP PO PRN (02:08)
[2021-09-16] MEDS ORDERED: hydrOXYzine HCl 10 MG TAB PO PRN (02:08)
[2021-09-16] MEDS ORDERED: traMADol HCL 50 MG TABLET PO PRN (02:08)
[2021-09-16] MEDS ORDERED: PROMETHAZINE HCL 12.5 MG in SODIUM CHLORIDE 0.9% 50 ML IV PRN (02:08)
[2021-09-16] MEDS ORDERED: ACETAMINOPHEN 325 MG TAB PO PRN (02:08)
[2021-09-16] MEDS ORDERED: MELATONIN 3 MG TAB PO PRN (02:31)
[2021-09-16] MEDS: PANTOprazole 40 MG TAB PO SCH ×2 (03:46→20:48)
[2021-09-16 05:52] LABS: Basophils # (auto) 0.03 K/uL (0-0.2); Basophils % (auto) 0.6 %; Eosinophils # (auto) 0.08 K/uL (0-0.50); Eosinophils % (auto) 1.7 %; Hematocrit (blood only) 32.7 % (34.1-44.9); Immature Granulocytes # (auto) 0.02 K/uL (0.00-0.02); Immature Granulocytes % (auto) 0.4 %; Lymphocytes # (auto) 1.65 K/uL (1.2-3.4); Mean Corpuscular Hemoglobin 28.1 pg (25.0-34.0); Mean Corpuscular Hgb Conc 33.6 g/dL (32.0-36.0); Mean Corpuscular Volume 83.6 fL (80.0-100.0); Mean Platelet Volume 9.1 fL (9.4-12.3); Monocytes # (auto) 0.44 K/uL (0.24-0.82); Monocytes % (auto) 9.3 %; Platelet Count 251 K/uL (130-400); RDW Coefficient of Variation 13.8 % (11.5-14.5); RDW Standard Deviation 41.8 fL (36.4-46.3); Red Blood Count 3.91 M/uL (3.93-5.22); White Blood Count 4.72 K/ul (4.8-10.8)
[2021-09-16 06:06] LABS: Partial Thromboplastin Time 27.1 Seconds (21.0-31.0)
[2021-09-16 06:38] LABS: BUN Creatinine Ratio 29.8 (10-20); Calcium 8.4 mg/dl (8.5-10.1); Creatinine Clr Calc Pharmacy 57.8 ml/min; Est GFR (African American) 95.3 ml/min; Est GFR (Non-African American) 82.2 ml/min; Potassium 4.5 mmol/L (3.5-5.1)
--- NOTE | 2021-09-16 07:16 | CT Scan Report ---
HEAD CT NONCONTRAST CT DOSE: HISTORY: Headache, on eliquis TECHNIQUE: Multiaxial CT images of the head were performed without the use of intravenous contrast. A utomated exposure control was utilized for this study. A dose lowering technique was utilized adheri ng to the principles of ALARA. Comparison: Head CT 09/05/2021. Findings: The paranasal sinuses and mastoid air cells are clear. The calvarium and skull base are int act. There is no mass, hematoma, midline shift, acute infarct. White matter hypodensity is nonspecifi c but suggestive of microvascular ischemic change. The ventricles and sulci demonstrate mild age-rela luan involutional changes. Prior left frontotemporal craniotomy with a left suprasellar aneurysm clip again noted. Impression: No significant change compared to the prior study. No acute intracranial abnormality. ACT 112: Negative or not required by law. Electronically signed by: Elliot Singh M.D. 09/16/2021 7:15 AM
--- NOTE | 2021-09-16 07:33 | CT Scan Report ---
CHEST CTA for PULMONARY ARTERIES CT DOSE: 1329.03 mGy.cm HISTORY: Atypical chest pain. Shortness of breath. TECHNIQUE: Multiaxial CT images of the chest were performed following the intravenous administration of contrast to evaluate the pulmonary arteries. Maximal intensity projection images were also obtaine d. A dose lowering technique was utilized adhering to the principles of ALARA. COMPARISON STUDY: Chest CT 05/30/2021. FINDINGS: Please refer to same day abdomen and pelvis CT for further evaluation of the abdominal stru ctures. There is a stable 15 mm left adrenal gland nodule. No pleural or pericardial effusions. The h eart is borderline enlarged. Normal esophagus. There is a 1.6 cm right thyroid nodule/cyst which roosevelt ins unchanged. There is a left-sided dual-chamber pacemaker. No mediastinal or hilar lymphadenopathy. No pleural or pericardial effusions. Normal caliber thoracic aorta with no evidence for dissection. No filling defects within the pulmonary arteries to suggest a pulmonary embolus. There is a right tot al shoulder arthroplasty. No fractures within the visualized osseous structures. The central airways are patent. No pneumothorax. Left basilar linear scarlike densities are noted. Multiple scattered sub centimeter pulmonary nodules remain unchanged. Dominant spiculated nodule within the right upper lobe on image 240 measures 9 mm. No new focal lung consolidations to suggest pneumonia. IMPRESSION: 1. No evidence for pulmonary embolus. 2. Stable scattered subcentimeter pulmonary nodules with the largest spiculated nodule within the rig ht upper lobe measuring 9 mm. 3. Additional findings as described above. ACT 112: Negative or not required by law. Electronically signed by: Elliot Singh M.D. 09/16/2021 7:32 AM
--- NOTE | 2021-09-16 07:34 | XRay Report ---
XR chest 1V portable HISTORY: Atypical Chest Pain COMPARISON: Chest 11/05/2020. FINDINGS: No pneumothorax or no pleural effusions. Left basilar linear densities consistent with subs egmental atelectasis or scarring. Otherwise, no focal lung consolidations to suggest pneumonia. No ev idence for pulmonary edema. The heart is borderline enlarged. There is a left-sided dual-chamber pace maker and a right shoulder prosthesis. IMPRESSION: No acute process. ACT 112: Negative or not required by law. Electronically signed by: Elliot Singh M.D. 09/16/2021 7:32 AM
--- NOTE | 2021-09-16 07:58 | CT Scan Report ---
CT SCAN OF THE ABDOMEN AND PELVIS WITH IV CONTRAST CLINICAL HISTORY: Generalized abdominal pain. COMPARISON STUDY: Abdominal CT dated 09/04/2021. TECHNIQUE: Following the IV administration of 118 cc of Optiray 320, CT scan of the abdomen and pelv is is performed from the lung bases to the proximal femora. Images are reviewed in the axial, sagitta l, and coronal planes. IV contrast was administered without complication. A dose lowering technique w as utilized adhering to the principles of ALARA. FINDINGS: Lung bases: The heart is mildly enlarged and without pericardial effusion. Pacemaker leads are in tim ce. There is bibasilar scarring/atelectasis. No airspace consolidation or large pleural effusion is i dentified. Subcentimeter pulmonary nodules at both lung bases are unchanged and measure up to 5 mm. A calcified granuloma seen at the right lung base. Liver: The contrast-enhanced liver is normal in size, contour, and attenuation. There is mild central intrahepatic biliary ductal dilatation. The hepatic veins and portal veins are patent. Gallbladder: Surgically absent. Spleen: Normal in size and attenuation. Pancreas: Atrophic and grossly unremarkable. Adrenal glands: A 1.5 cm left adrenal nodule is unchanged. The right adrenal gland is normal in appea jorge. Kidneys: The contrast enhanced kidneys demonstrate mild cortical atrophy and are without hydronephros is. The kidneys enhance symmetrically. A 13 mm cyst is noted in the left kidney. Abdominal vasculature: The abdominal aorta is normal in course and caliber noting advanced atheroscle rotic calcification. Bowel: There is postoperative change from sigmoid colon resection with colocolonic anastomosis. No sekou wel obstruction is seen. There is moderate to advanced diverticulosis of the remaining colon without CT evidence of acute diverticulitis. Moderate fecal retention is seen throughout the colon. The appen teresita is well-visualized and normal. Peritoneum: There is no intraperitoneal free air or abdominal ascites. There is a fat-containing umbi lical hernia. Lymphadenopathy: None. Pelvic viscera: The bladder wall appears mildly thickened and hyperemic with surrounding infiltration . The uterus is surgically absent. No adnexal lesion is seen. Skeletal structures: The skeletal structures are heterogeneously osteopenic. There is moderate lumbos acral spondylosis No lytic or blastic lesions are seen. IMPRESSION: 1. Question cystitis. Correlate with clinical findings and urinalysis. 2. Moderate to advanced diverticulosis of the remaining colon without CT evidence of acute diverticul itis. 3. Additional findings as above. ACT 112: Negative or not required by law. Electronically signed by: Lars Amaya M.D. 09/16/2021 7:57 AM
[2021-09-16] MEDS: lisinopril 5 MG TAB PO SCH (08:16)
[2021-09-16] MEDS: AMIODARONE 200 MG TAB PO SCH (08:16)
[2021-09-16] MEDS ORDERED: PANTOprazole 40 MG TAB PO SCH (09:00)
[2021-09-16] MEDS ORDERED: METOPROLOL TARTRATE 25 MG TAB PO SCH (09:00)
--- NOTE | 2021-09-16 09:20 | Cardiology Consultation ---
Date of Consultation September 16, 2021 Assessment & Plan (1) Chest pain: (2) Atrial fibrillation and flutter: (3) Pacemaker: (4) LBBB (left bundle branch block): (5) Anxiety: Plan Patient admitted for recurrent atypical chest pressure/SOB. This is 2nd admission in the last week for similar symptoms. Last admission was thought to be an acute anxiety reaction. Work up has been unremarkable thus far. HS troponin negative x3. Given recurrent symptoms this morning, will repeat enzymes at noon. If unremarkable, NPO can be cancelled. No arrhythmias on telemetry. she has intermittent pacing, with chronic LBBB No PAF. Will increase metoprolol to 50 mg BID to aid with sinus tachycardia on admission. resume Eliquis, held on admission. Patient had a negative nuclear stress test at [facility] in Dec 2020. She had normal coronary arteries in 2010. She had recent echo with preserved LVEF and moderate aortic sclerosis last week during admission. Would consider psych eval to treat anxiety. Case discussed with Dr. Perry. Supervising Physician Co-Signing Physician Notes I have seen and examined the patient. I reviewed the medical record and discussed the case with Shirin Danilo. This elderly woman has been under a lot of stress recently due to the illness of her . She states they have always dependent on each other's care. That has been difficult recently. Her family was in town helping out recently but had to return home and they were alone again. I think she is grieving and at least some of her symptoms are related to anxiety. I do not believe that it would be unreasonable to have psychiatry see her to make recommendations regarding possible pharmacology to treat her anxiety. History of Present Illness Reason for Consultation: Atypical chest pain Requesting Physician: Dr. Polo Attending Physician: Dr. Perry History of Present Illness Patient is an 89 year old female, known to [facility] cardiology, Dr. Bay, with history includin. Longstanding hypertension 2. Chronic left bundle branch block 3. History of cerebral carotid artery aneurysm clipping 1988 4. Single episode transient atrial flutter post operatively 1988 5. Hyperlipidemia 6. Cardiac catheterization November 2010 without obstructive coronary disease 7. TIA with transient aphasia June of 2017 8. Paroxysmal atrial fibrillation with hospitalization November 07, 2019 with rapid response 9. 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 Status post right upper lobectomy 1993 Last week patient was admitted for altered mental status, chest pain, and possible acute anxiety reaction. At that time, she was evaluated by cardiology, Dr. Bay with minimal HS troponin elevation. EKG was without acute changes. She underwent echo with preserved LVEF, aortic sclerosis, without wall motion abnormalities. She was treated for anxiety and sleep deprivation. She was evaluated in the outpatient cardiology clinic last week for hospital follow up. Her family had come to [facility] to help her and her , who's health is ailing. she admits to chronic lack of sleep and significant stressors at home. Unfortunately her family left to return home on . She reports she was feeling well over the last few days. Then yesterday evening, they had company visiting, and she developed sudden onset SOB and "funny feeling in her chest". She has trouble describing the sensation. She also began to notice intermittent blurred vision. She became very anxious. She tried taking a nitro but no relief. called 911. She brought to ER. EKG demonstrated sinus tach around 100 bpm, with intermittent atrial pacing and chronic LBBB. HS troponin has been negative x3 since admission. She reports her symptoms resolved when she fell asleep last night. Reports she slept well. This morning, she became very tearful at time of consult. Reports "something is going on but I can't tell what it is". She notes shortness of breath, difficulty taking a deep breath. Her chest CT was without pleural effusions. No pulmonary embolus. Head CT was unremarkable. She denies specific chest pain, but reports something "Doesn't feel right". She has trouble describing the sensation. Allergies Allergy/AdvReac Type Severity Reaction Status Date / Time adhesive Allergy Unknown RASH, Verified 09/15/21 22:13 REDDNESS AT SITE codeine Allergy Unknown RASH, Verified 09/15/21 22:13 SEVERE ITCHING metronidazole Allergy Unknown SEVERE Verified 09/15/21 22:13 YEAST/VAGINAL INFX morphine Allergy Unknown IRREGULAR Verified 09/15/21 22:13 HEART RATE, EXTREME SEDATION propoxyphene AdvReac Unknown A-FIB Verified 09/15/21 22:13 Home Medications Medication Instructions Recorded Confirmed Type lisinopril 5 mg tablet 5 mg PO QAM 01/30/18 09/15/21 History melatonin 10 mg tablet 10 mg PO HS PRN Sleep 10/26/18 09/15/21 History magnesium oxide 400 mg PO QAM 12/31/19 09/15/21 History docusate sodium 100 mg capsule 100 mg PO HS PRN Constipation 03/10/20 09/15/21 History (Stool Softener) omega 3-xlk-xzw-fish oil 1,200 mg 2 cap PO BID 03/10/20 09/15/21 History (144 mg-216 mg) capsule (Fish Oil) amiodarone 200 mg tablet 100 mg PO QAM 05/03/20 09/15/21 History apixaban 2.5 mg tablet (Eliquis) 2.5 mg PO BID 05/03/20 09/15/21 History glucosamine sulf dipot 2 cap PO QAM 05/03/20 09/15/21 History chlr,msm,chond 550 mg-C 30 mg-yennifer 1 mg capsule (Glucosamine Chondroitin) pantoprazole 40 mg tablet,delayed 40 mg PO QAM 05/03/20 09/15/21 History release magnesium hydroxide 400 mg/5 mL 15 ml PO DAILY PRN Constipation 05/25/20 09/15/21 History oral suspension (Milk of Magnesia) furosemide 20 mg tablet (Lasix) 20 mg PO 2XWK PRN sweling and 10/30/20 09/15/21 Rx weight gain #30 tabs metoprolol tartrate 25 mg tablet 25 mg PO BID #0 tabs 10/30/20 09/15/21 Rx hydroxyzine HCl 10 mg tablet 10 mg PO Q6 PRN anxiety #20 tabs 09/06/21 09/15/21 Rx melatonin 3 mg tablet 6 mg PO HS #30 tabs 09/06/21 09/15/21 Rx mirtazapine 15 mg tablet 15 mg PO HS #30 tabs 09/06/21 09/15/21 Rx Patient History Medical History 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 Bay History of lung cancer 1993- s/p RUL lung resection History of trigger finger multiple to both hands Hyperlipidemia Hypertension Longstanding LBBB (left bundle branch block) Chronic per cardio records Pacemaker Placed Mar 16, 2020> [facility] > follows Dr. 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 Bay SOB (shortness of breath) TIA (transient ischemic attack) no further issues > 2017 > doesn't follow neuro Surgical History H/O section x1 H/O hemorrhoidectomy H/O ultrasound guided needle biopsy of lung History of cardiac cath 2010 - no obstructive CAD History of carpal tunnel release bilat History of cataract surgery bilat History of colon resection 8 inches > 2001 History of colonoscopy History of hysterectomy History of lung surgery 1993 > RUL > due to cancer > no chemo/radiation History of right shoulder replacement reverse History of spinal surgery Hx of cholecystectomy Hx of exploratory thoracotomy Family History Aunt Diabetes Other Abdominal aortic aneurysm Stroke Social History Smoking Status: Never smoker Tobacco Type: Cigarettes Second Hand Exposure: No; Hx Alcohol Use: No Hx Substance Use: No Preferred Language: Italian Communication Ability: Effective Visual Impairment: Limited Hearing Ability: Hard of Hearing Assistant Front Office Manager Required: No Beliefs That Will Affect Care: None marital status: Current Living Situation: Spouse How many Children do You have: 1 Feels Safe at Home: Yes Safety Concerns: Feels Safe At This Time Assistive Devices: None Review of Systems Review of Systems: All systems reviewed & are unremarkable except as noted in HPI & below Physical Exam Constitutional: WD/WN, vitals as above no acute distress Neck: trachea midline, no thyromegaly Respiratory: normal respiratory effort, lungs clear to auscultation Cardiovascular: Rate/Rhythm: regular rate and regular rhythm Heart Sounds: + murmur (II/ systolic murmur) Gastrointestinal (Abdomen): normal bowel sounds, soft, nontender, no hepat osplenomegaly Skin: no rashes, warm and dry Psychiatric: Orientation: alert and oriented x 3 Affect: + anxious affect and + tearful affect Results & Data ([facility]) Vital Signs (Past 12 Hours) Vital Signs Temp Pulse Pulse Resp BP BP Pulse Ox 09/16/21 07:09 36.8 C 81 18 113/52 L 95 09/16/21 03:43 81 09/16/21 01:45 36.6 C 87 18 125/62 96 09/16/21 01:00 86 18 108/56 L 94 09/16/21 01:33 86 18 108/56 L 94 09/15/21 23:53 86 20 115/54 L 97 09/15/21 22:10 86 18 95 09/15/21 22:00 86 17 98 09/15/21 22:00 105/49 L 09/15/21 21:50 87 16 97 09/15/21 21:40 91 H 22 95 09/15/21 21:30 86 15 96 09/15/21 21:30 99/50 L 09/15/21 21:20 84 14 96 09/15/21 21:10 85 16 95 O2 Del Method 09/16/21 07:09 Room Air 09/16/21 03:43 09/16/21 01:45 Room Air 09/16/21 01:00 Room Air 09/16/21 01:33 Room Air 09/15/21 23:53 Room Air 09/15/21 22:10 Room Air 09/15/21 22:00 Room Air 09/15/21 22:00 Room Air 09/15/21 21:50 Room Air 09/15/21 21:40 Room Air 09/15/21 21:30 Room Air 09/15/21 21:30 Room Air 09/15/21 21:20 Room Air 09/15/21 21:10 Room Air Laboratory Results Cardiac Enzymes 09/15/21 09/15/21 09/15/21 Range/Units 19:46 22:55 22:55 AST 11 L (13-39) U/L Troponin I High Sens 9.9 D 11.9 (0-14) pg/ml B-Natriuretic Peptide 57 (0-100) pg/ml 09/16/21 Range/Units 05:34 AST (13-39) U/L Troponin I High Sens 11.9 (0-14) pg/ml B-Natriuretic Peptide (0-100) pg/ml Coagulation 09/15/21 09/15/21 09/16/21 Range/Units 19:46 22:55 05:34 PT 10.9 (9.0-12.0) Seconds APTT 29.1 27.1 (21.0-31.0) Seconds B-Natriuretic Peptide 57 (0-100) pg/ml CBC 09/15/21 09/16/21 Range/Units 19:46 05:34 WBC 6.63 4.72 L (4.8-10.8) K/ul RBC 4.37 3.91 L (3.93-5.22) M/uL Hgb 12.3 11.0 L (12.0-16.0) g/dl Hct 36.7 32.7 L (34.1-44.9) % Plt Count 286 251 (130-400) K/uL Neut # (Auto) 3.83 2.50 (1.4-6.5) K/uL Lymph # (Auto) 2.17 1.65 (1.2-3.4) K/uL Coles # (Auto) 0.49 0.44 (0.24-0.82) K/uL Eos # (Auto) 0.07 0.08 (0-0.50) K/uL Baso # (Auto) 0.05 0.03 (0-0.2) K/uL Comprehensive Metabolic Panel 09/15/21 09/16/21 Range/Units 19:46 05:34 Sodium 138 137 (136-145) mmol/L Potassium 3.5 4.5 D (3.5-5.1) mmol/L Chloride 105 109 H (98-107) mmol/L Carbon Dioxide 25 24 (21-32) mmol/L BUN 16 17 (6-23) mg/dl Creatinine 0.83 0.57 L (0.6-1.2) mg/dl Glucose 136 H 101 H (70-99(Fasting)) mg/dl Calcium 9.1 8.4 L (8.5-10.1) mg/dl AST 11 L (13-39) U/L ALT 3 L (7-52) U/L Alkaline Phosphatase 58 (34-104) U/L Total Protein 6.5 (6.0-8.3) gm/dl Albumin 3.8 (3.4-5.0) gm/dl Intake and Output 09/15/21 09/16/21 09/16/21 22:59 06:59 14:59 Intake Total 1000 / 1000 Balance 1000 / 1000 Intake: IV 1000 / 1000 Sodium Chloride 0.9% 1000ML 1, 1000 / 1000 000 ml @ 999 mls/hr IV .Q1H1M STA Rx#:[id number] Other: Other Intake Source Patient is NPO Weight 63.1 kg 65.5 kg Weight Measurement Method Built in Bedscale Built in [facility] Diagnostic Findings Telemetry reviewed: Intermittent atrial pacing, otherwise NSR with conduction delay, consistent with known LBBB. EKG reviewed from admission: intermittent atrial paced, ventricular sensed. Chronic LBBB pattern. No acute changes. Echo report reviewed from last week at [facility]: Compared to prior study, no significant changes noted. LV is normal in size. Moderate concentric LVH. LV systolic function is normal. Ejection fraction 60-65%. Grade 1 diastolic dysfunction. Aortic valve sclerosis moderate without significant aortic valvular stenosis. Mild mitral annular calcification. Mild MR. Impressions Chest X-Ray 09/15/21 19:44 XR chest 1V portable HISTORY: Atypical Chest Pain COMPARISON: Chest 11/05/2020. FINDINGS: No pneumothorax or no pleural effusions. Left basilar linear densities consistent with subsegmental atelectasis or scarring. Otherwise, no focal lung consolidations to suggest pneumonia. No evidence for pulmonary edema. The heart is borderline enlarged. There is a left-sided dual-chamber pacemaker and a right shoulder prosthesis. IMPRESSION: No acute process. ACT 112: Negative or not required by law. Electronically signed by: Elliot Singh M.D. 09/16/2021 7:32 AM Abdomen/Pelvis CT 09/15/21 22:41 CT SCAN OF THE ABDOMEN AND PELVIS WITH IV CONTRAST CLINICAL HISTORY: Generalized abdominal pain. COMPARISON STUDY: Abdominal CT dated 09/04/2021. TECHNIQUE: Following the IV administration of 118 cc of Optiray 320, CT scan of the abdomen and pelvis is performed from the lung bases to the proximal femora. Images are reviewed in the axial, sagittal, and coronal planes. IV contrast was administered without complication. A dose lowering technique was utilized adhering to the principles of ALARA. FINDINGS: Lung bases: The heart is mildly enlarged and without pericardial effusion. Pacemaker leads are in place. There is bibasilar scarring/atelectasis. No airspace consolidation or large pleural effusion is identified. Subcentimeter pulmonary nodules at both lung bases are unchanged and measure up to 5 mm. A calcified granuloma seen at the right lung base. Liver: The contrast-enhanced liver is normal in size, contour, and attenuation. There is mild central intrahepatic biliary ductal dilatation. The hepatic veins and portal veins are patent. Gallbladder: Surgically absent. Spleen: Normal in size and attenuation. Pancreas: Atrophic and grossly unremarkable. Adrenal glands: A 1.5 cm left adrenal nodule is unchanged. The right adrenal gland is normal in appearance. Kidneys: The contrast enhanced kidneys demonstrate mild cortical atrophy and are without hydronephrosis. The kidneys enhance symmetrically. A 13 mm cyst is noted in the left kidney. Abdominal vasculature: The abdominal aorta is normal in course and caliber noting advanced atherosclerotic calcification. Bowel: There is postoperative change from sigmoid colon resection with colocolonic anastomosis. No bowel obstruction is seen. There is moderate to advanced diverticulosis of the remaining colon without CT evidence of acute diverticulitis. Moderate fecal retention is seen throughout the colon. The appendix is well-visualized and normal. Peritoneum: There is no intraperitoneal free air or abdominal ascites. There is a fat-containing umbilical hernia. Lymphadenopathy: None. Pelvic viscera: The bladder wall appears mildly thickened and hyperemic with surrounding infiltration. The uterus is surgically absent. No adnexal lesion is seen. Skeletal structures: The skeletal structures are heterogeneously osteopenic. There is moderate lumbosacral spondylosis No lytic or blastic lesions are seen. IMPRESSION: 1. Question cystitis. Correlate with clinical findings and urinalysis. 2. Moderate to advanced diverticulosis of the remaining colon without CT evidence of acute diverticulitis. 3. Additional findings as above. ACT 112: Negative or not required by law. Electronically signed by: Lars Amaya M.D. 09/16/2021 7:57 AM Chest CTA 09/15/21 22:41 CHEST CTA for PULMONARY ARTERIES CT DOSE: 1329.03 mGy.cm HISTORY: Atypical chest pain. Shortness of breath. TECHNIQUE: Multiaxial CT images of the chest were performed following the intravenous administration of contrast to evaluate the pulmonary arteries. Maximal intensity projection images were also obtained. A dose lowering technique was utilized adhering to the principles of ALARA. COMPARISON STUDY: Chest CT 05/30/2021. FINDINGS: Please refer to same day abdomen and pelvis CT for further evaluation of the abdominal structures. There is a stable 15 mm left adrenal gland nodule. No pleural or pericardial effusions. The heart is borderline enlarged. Normal esophagus. There is a 1.6 cm right thyroid nodule/cyst which remains unchanged. There is a left-sided dual-chamber pacemaker. No mediastinal or hilar lymphadenopathy. No pleural or pericardial effusions. Normal caliber thoracic aorta with no evidence for dissection. No filling defects within the pulmonary arteries to suggest a pulmonary embolus. There is a right total shoulder arthroplasty. No fractures within the visualized osseous structures. The central airways are patent. No pneumothorax. Left basilar linear scarlike densities are noted. Multiple scattered subcentimeter pulmonary nodules remain unchanged. Dominant spiculated nodule within the right upper lobe on image 240 measures 9 mm. No new focal lung consolidations to suggest pneumonia. IMPRESSION: 1. No evidence for pulmonary embolus. 2. Stable scattered subcentimeter pulmonary nodules with the largest spiculated nodule within the right upper lobe measuring 9 mm. 3. Additional findings as described above. ACT 112: Negative or not required by law. Electronically signed by: Elliot Singh M.D. 09/16/2021 7:[address] 09/15/21 22:[address] DOSE: HISTORY: Headache, on eliquis TECHNIQUE: Multiaxial CT images of the head were performed without the use of intravenous contrast. Automated exposure control was utilized for this study. A dose lowering technique was utilized adhering to the principles of ALARA. Comparison: Head CT 09/05/2021. Findings: The paranasal sinuses and mastoid air cells are clear. The calvarium and skull base are intact. There is no mass, hematoma, midline shift, acute infarct. White matter hypodensity is nonspecific but suggestive of microvascular ischemic change. The ventricles and sulci demonstrate mild age-related involutional changes. Prior left frontotemporal craniotomy with a left suprasellar aneurysm clip again noted. Impression: No significant change compared to the prior study. No acute intracranial abnormality. ACT 112: Negative or not required by law. Electronically signed by: Elliot Singh M.D. 09/16/2021 7:15 AM Medications Administered Current Inpatient Medications Acetaminophen (Acetaminophen 325 Mg Tab) 650 mg PO Q4H PRN PRN Reason: Pain or Fever Stop: 10/16/21 02:07 Amiodarone HCl (Amiodarone 200 Mg Tab) 100 mg PO QAM [facility] Stop: 10/16/21 08:59 Last Admin: 09/16/21 08:16 Dose: 100 mg Docusate Sodium (Docusate Sodium 100 Mg Cap) 100 mg PO HS PRN PRN Reason: Constipation Stop: 10/16/21 02:07 Hydroxyzine HCl (Hydroxyzine Hcl 10 Mg Tab) 10 mg PO Q6 PRN PRN Reason: anxiety Stop: 10/16/21 02:07 Lactated Ringer's (Lr) 1,000 mls @ 60 mls/hr IV .[id number] ONE Stop: 09/16/21 16:58 Last Admin: 09/16/21 01:18 Dose: 60 mls/hr Promethazine HCl 12.5 mg/ (Sodium Chloride) 50.5 mls @ 202 mls/hr IV Q6H PRN PRN Reason: Nausea And Vomiting Stop: 10/16/21 02:07 Lisinopril (Lisinopril 5 Mg Tab) 5 mg PO QAM [facility] Stop: 10/16/21 08:59 Last Admin: 09/16/21 08:16 Dose: 5 mg Melatonin (Melatonin 3 Mg Tab) 9 mg PO HSZ PRN PRN Reason: Sleep Stop: 10/16/21 02:30 Metoprolol Tartrate (Metoprolol Tartrate 25 Mg Tab) 25 mg PO BID [facility] Stop: 10/16/21 08:59 Last Admin: 09/16/21 08:17 Dose: 25 mg Mirtazapine (Mirtazapine Tab 15 Mg Tab) 15 mg PO HS [facility] Stop: 10/16/21 20:59 Nitroglycerin (Nitroglycerin Sl 0.4 Mg/Tab Tab) 0.4 mg SL UD PRN PRN Reason: Chest Pain Stop: 10/16/21 02:07 Pantoprazole Sodium (Pantoprazole 40 Mg Tab) 40 mg PO BID [facility] Stop: 10/16/21 03:14 Last Admin: 09/16/21 03:46 Dose: 40 mg Tramadol HCl (Tramadol Hcl 50 Mg Tablet) 25 mg PO Q4H PRN PRN Reason: Pain Stop: 10/16/21 02:07 Last Admin: 09/16/21 05:55 Dose: 25 mg
[2021-09-16] MEDS ORDERED: METOPROLOL TARTRATE 25 MG TAB PO ONE (10:45)
--- NOTE | 2021-09-16 12:32 | Electrocardiogram Report ---
Test Reason : Blood Pressure : / mmHG Vent. Rate : 106 BPM Atrial Rate : 106 BPM P-R Int : 158 ms QRS Dur : 136 ms QT Int : 372 ms P-R-T Axes : 078 -46 081 degrees QTc Int : 494 ms Poor data quality, interpretation may be adversely affected Sinus tachycardia Left axis deviation Non-specific intra-ventricular conduction block Abnormal ECG When compared with ECG of 04-SEP-2021 08:17, No significant change was found Confirmed by Chalo Bernal ([id number]) on 09/16/2021 12:31:48 PM Referred By: REFERRED SELF Confirmed By:Alonso Bernal
[2021-09-16] MEDS: APIXABAN 2.5 MG TAB PO SCH ×2 (12:33→20:47)
--- NOTE | 2021-09-16 13:00 | Communication Note ---
Date of Service: September 16, 2021 Patient was seen and examined at bedside. Chart reviewed. H and P note, consult note, labs and imaging reviewed. Admitted earlier today for chest pain. still with chest pain but not as bad. trop x4 negative, tele reviewed. negative stress test in dec 2020, recent echo last week. Per cardio, possibly anxiety contributing to her symptoms and psych consulted. Cancel npo. resume eliquis and increase toprol. She remains clinically stable.
--- NOTE | 2021-09-16 13:30 | Communication Note ---
Date of Service: September 16, 2021 received/reviewed consult request. Patient on Remeron, states she is unsure why to liaison. Denies depression or feelings of overwhelm and does not want ad ditional services. Prefers med changes per PCP. Case reviewed with YANET Carrasco as full consult will be cancelled. Can reconsult psych liaison. If changes mind, will provide purple resource manual, therapists accepting medicare patients is limited. If would want med change, given age would suggest Remeron 22.5 mg rather than full jump to 30 mg. Higher doses are not particularly sedating.
[2021-09-16] MEDS: METOPROLOL TARTRATE 50 MG TAB PO SCH (20:48)
[2021-09-16] MEDS ORDERED: MIRTAZAPINE TAB 15 MG TAB PO SCH (21:00)
[2021-09-16] MEDS ORDERED: APIXABAN 2.5 MG TAB PO SCH (21:00)
[2021-09-17] MEDS: APIXABAN 2.5 MG TAB PO SCH (08:10)
[2021-09-17] MEDS: METOPROLOL TARTRATE 50 MG TAB PO SCH (08:10)
[2021-09-17] MEDS: AMIODARONE 200 MG TAB PO SCH (08:10)
[2021-09-17] MEDS: PANTOprazole 40 MG TAB PO SCH (08:11)
[2021-09-17] MEDS: lisinopril 5 MG TAB PO SCH (08:11)
--- NOTE | 2021-09-17 09:58 | Cardiology Progress Note ---
Date of Service September 17, 2021 Assessment & Plan (1) Chest pain: (2) Atrial fibrillation and flutter: (3) Pacemaker: (4) LBBB (left bundle branch block): (5) Anxiety: Plan Patient admitted for recurrent atypical chest pressure/SOB. This is 2nd admission in the last week for similar symptoms. Last admission was thought to be an acute anxiety reaction. Work up has been unremarkable thus far. HS troponin negative x4. No acute EKG changes. No arrhythmias on telemetry. she has intermittent pacing, with chronic LBBB. No PAF. Will increase metoprolol to 50 mg BID to aid with intermittent palpitations/sinus tach, which may be contributing to her symptoms. Continue anticoagulation with Eliquis. Patient had a negative nuclear stress test at [facility] in Dec 2020. She had normal coronary arteries in 2010. She had recent echo with preserved LVEF and moderate aortic sclerosis last week during admission. She should f/u with PCP regarding anxiety. Stable from cardiac perspective for discharge today. Case to be discussed with Dr. Perry. Admission and Anticipated Discharge Date Admission Date: September 16, 2021 Supervising Physician Co-Signing Physician Notes I reviewed the medical record and discussed the case with Ms. Carrasco. I have seen and examined the patient. I agree with her I with the plan as outlined above. Do not believe any cardiac testing is indicated. I would be okay if the patient were discharged today. Subjective Patient resting in chair comfortably. She denies recurrent chest pain or unusual shortness of breath. She reports feeling "great" this morning. She is ready to go home. Review of Systems Review of Systems: All systems reviewed & are unremarkable except as noted in HPI & below Physical Exam Constitutional: WD/WN, vitals as above no acute distress Neck: trachea midline, no thyromegaly Respiratory: normal respiratory effort, lungs clear to auscultation Cardiovascular: Rate/Rhythm: regular rate and regular rhythm Heart Sounds: + murmur (II/ systolic murmur) Gastrointestinal (Abdomen): normal bowel sounds, soft, nontender, no hepatosplenomegaly Skin: no rashes, warm and dry Psychiatric: Orientation: alert and oriented x 3 Affect: euthymic affect Results & Data ([facility]) Vital Signs (Past 12 Hours) Vital Signs Temp Pulse Pulse Resp BP Pulse Ox O2 Del Method 09/17/21 07:13 69 09/17/21 07:09 36.5 C 80 20 117/52 L 93 Room Air 09/17/21 02:42 36.5 C 74 20 97/44 L 91 Room Air 09/16/21 23:11 71 09/16/21 23:11 Room Air 09/16/21 23:03 36.6 C 88 18 122/57 L 94 Room Air Laboratory Results Cardiac Enzymes 09/16/21 Range/Units 12:01 Troponin I High Sens 11.4 (0-14) pg/ml Intake and Output 09/16/21 09/17/21 09/17/21 22:59 06:59 14:59 Intake Total 500 / 1291 50 / 1291 Output Total 551 / 551 200 / 200 Balance -51 / 740 50 / 740 -200 / -200 Intake: Oral 500 / 550 50 / 550 Output: Urine 550 / 550 200 / 200 # Bowel Movements Other: # Unmeasured Voids 1 Weight 65.5 kg Weight Measurement Method Built in [facility] Laboratory Results WBC 4.72 K/ul (4.8-10.8) L 09/16/21 05:34 RBC 3.91 M/uL (3.93-5.22) L 09/16/21 05:34 Hgb 11.0 g/dl (12.0-16.0) L 09/16/21 05:34 Hct 32.7 % (34.1-44.9) L 09/16/21 05:34 MCV 83.6 fL (80.0-100.0) 09/16/21 05:34 MCH 28.1 pg (25.0-34.0) 09/16/21 05:34 MCHC 33.6 g/dL (32.0-36.0) 09/16/21 05:34 RDW Std Deviation 41.8 fL (36.4-46.3) 09/16/21 05:34 RDW Coeff of Coleman 13.8 % (11.5-14.5) 09/16/21 05:34 Plt Count 251 K/uL (130-400) 09/16/21 05:34 MPV 9.1 fL (9.4-12.3) L 09/16/21 05:34 Immature Gran % (Auto) 0.4 % 09/16/21 05:34 Neut % (Auto) 53.0 % 09/16/21 05:34 Lymph % (Auto) 35.0 % 09/16/21 05:34 [place] % (Auto) 9.3 % 09/16/21 05:34 Eos % (Auto) 1.7 % 09/16/21 05:34 Baso % (Auto) 0.6 % 09/16/21 05:34 Neut # (Auto) 2.50 K/uL (1.4-6.5) 09/16/21 05:34 Lymph # (Auto) 1.65 K/uL (1.2-3.4) 09/16/21 05:34 [place] # (Auto) 0.44 K/uL (0.24-0.82) 09/16/21 05:34 Eos # (Auto) 0.08 K/uL (0-0.50) 09/16/21 05:34 Baso # (Auto) 0.03 K/uL (0-0.2) 09/16/21 05:34 Immature Gran # (Auto) 0.02 K/uL (0.00-0.02) 09/16/21 05:34 PT 10.9 Seconds (9.0-12.0) 09/15/21 19:46 INR 1.0 (0.9-1.1) 09/15/21 19:46 APTT 27.1 Seconds (21.0-31.0) 09/16/21 05:34 PTT Ratio 1.0 09/16/21 05:34 Sodium 137 mmol/L (136-145) 09/16/21 05:34 Potassium 4.5 mmol/L (3.5-5.1) D 09/16/21 05:34 Chloride 109 mmol/L (98-107) H 09/16/21 05:34 Carbon Dioxide 24 mmol/L (21-32) 09/16/21 05:34 Anion Gap 4 (3-11) 09/16/21 05:34 BUN 17 mg/dl (6-23) 09/16/21 05:34 Creatinine 0.57 mg/dl (0.6-1.2) L 09/16/21 05:34 Est Cr Clr Drug Dosing 57.8 ml/min 09/16/21 05:34 Est GFR ( Amer) 95.3 ml/min 09/16/21 05:34 Est GFR (Non-Af Amer) 82.2 ml/min 09/16/21 05:34 BUN/Creatinine Ratio 29.8 (10-20) H 09/16/21 05:34 Glucose 101 mg/dl (70-99(Fasting)) H 09/16/21 05:34 Calcium 8.4 mg/dl (8.5-10.1) L 09/16/21 05:34 Magnesium 2.0 mg/dl (1.7-2.4) 09/15/21 19:46 Total Bilirubin 1.1 mg/dl (0.2-1.0) H 09/15/21 19:46 AST 11 U/L (13-39) L 09/15/21 19:46 ALT 3 U/L (7-52) L 09/15/21 19:46 Alkaline Phosphatase 58 U/L (34-104) 09/15/21 19:46 Troponin I High Sens 11.4 pg/ml (0-14) 09/16/21 12:01 B-Natriuretic Peptide 57 pg/ml (0-100) 09/15/21 22:55 Total Protein 6.5 gm/dl (6.0-8.3) 09/15/21 19:46 Albumin 3.8 gm/dl (3.4-5.0) 09/15/21 19:46 Globulin 2.7 gm/dl (2.5-4.0) 09/15/21 19:46 Albumin/Globulin Ratio 1.4 (0.9-2) 09/15/21 19:46 Lipase 35 U/L (11-82) 09/15/21 19:46 SARS-CoV-2, RNA, NAAT NEGATIVE (NEGATIVE) 09/15/21 22:01 Impressions Chest X-Ray 09/15/21 19:44 XR chest 1V portable HISTORY: Atypical Chest Pain COMPARISON: Chest 11/05/2020. FINDINGS: No pneumothorax or no pleural effusions. Left basilar linear densities consistent with subsegmental atelectasis or scarring. Otherwise, no focal lung consolidations to suggest pneumonia. No evidence for pulmonary edema. The heart is borderline enlarged. There is a left-sided dual-chamber pacemaker and a right shoulder prosthesis. IMPRESSION: No acute process. ACT 112: Negative or not required by law. Diagnostic Findings Telemetry reviewed: Normal sinus rhythm with conduction delay heart rates ranging 60 to 80 beats per minute. No atrial arrhythmias. Medications Administered Current Inpatient Medications Acetaminophen (Acetaminophen 325 Mg Tab) 650 mg PO Q4H PRN PRN Reason: Pain or Fever Stop: 10/16/21 02:07 Amiodarone HCl (Amiodarone 200 Mg Tab) 100 mg PO QAM [facility] Stop: 10/16/21 08:59 Last Admin: 09/17/21 08:10 Dose: 100 mg Apixaban (Apixaban 2.5 Mg Tab) 2.5 mg PO BID BERNARDINO Stop: 10/16/21 11:29 Last Admin: 09/17/21 08:10 Dose: 2.5 mg Docusate Sodium (Docusate Sodium 100 Mg Cap) 100 mg PO HS PRN PRN Reason: Constipation Stop: 10/16/21 02:07 Hydroxyzine HCl (Hydroxyzine Hcl 10 Mg Tab) 10 mg PO Q6 PRN PRN Reason: anxiety Stop: 10/16/21 02:07 Promethazine HCl 12.5 mg/ (Sodium Chloride) 50.5 mls @ 202 mls/hr IV Q6H PRN PRN Reason: Nausea And Vomiting Stop: 10/16/21 02:07 Lisinopril (Lisinopril 5 Mg Tab) 5 mg PO QAM [facility] Stop: 10/16/21 08:59 Last Admin: 09/17/21 08:11 Dose: 5 mg Melatonin (Melatonin 3 Mg Tab) 9 mg PO HSZ PRN PRN Reason: Sleep Stop: 10/16/21 02:30 Metoprolol Tartrate (Metoprolol Tartrate 50 Mg Tab) 50 mg PO BID [facility] Stop: 10/16/21 20:59 Last Admin: 09/17/21 08:10 Dose: 50 mg Mirtazapine (Mirtazapine Tab 15 Mg Tab) 15 mg PO HS BERNARDINO Stop: 10/16/21 20:59 Last Admin: 09/16/21 20:48 Dose: 15 mg Nitroglycerin (Nitroglycerin Sl 0.4 Mg/Tab Tab) 0.4 mg SL UD PRN PRN Reason: Chest Pain Stop: 10/16/21 02:07 Pantoprazole Sodium (Pantoprazole 40 Mg Tab) 40 mg PO BID [facility] Stop: 10/16/21 03:14 Last Admin: 09/17/21 08:11 Dose: 40 mg Tramadol HCl (Tramadol Hcl 50 Mg Tablet) 25 mg PO Q4H PRN PRN Reason: Pain Stop: 10/16/21 02:07 Last Admin: 09/16/21 05:55 Dose: 25 mg
--- NOTE | 2021-09-17 13:01 | Discharge Summary ---
Date of Service September 17, 2021 Admission HPI Per Admitting Provider History obtained from patient and records. Medical history significant for COPD, history of pulmonary nodules, lung cancer R sp surgery 1990s, CAD/PVD/TIA as per records, SSS sp PPM on Eliquis, hx SAH, cerebral aneurysm status post clipping, chronic LBBB, hypertension, hyperlipidemia, GERD Last confinement 10 days ago for elevated troponin attributed to anxiety, fatigue symptoms. Intermittent palpitations achy headache symptoms at home the last few days. 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 Symptoms attributed to anxiety/home stressors. Beta-shawn dose adjusted. 3 days ago, patient noted transient pain between her breasts and abdomen going to the back. PCP prescribed nitroglycerin as needed for pain. Patient had another attack of chest pain relieved by nitroglycerin. Last night, patient had recurrence of chest pain somewhat more intense. Nitroglycerin made her feel sicker. Patient brought to the ER for evaluation. MEDICAL HISTORY: As above. SURGERIES: PPM, Shoulder surgery, lung surgery, bowel surgery. Trigger finger release, MADISYN, carpal tunnel surgery, skin cancer surgery, cholecystectomy FAMILY HISTORY: heart disease. PERSONAL AND SOCIAL HISTORY: Nonsmoker. No chronic intake of ETOH intake. 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 Admission Exam Per Admitting Provider GENERAL: uncomfortable, slightly anxious, no respiratory distress, pleasant, looks younger than stated age SKIN: Normal color, warm HEENT: [place] palpebral conjunctivae, no ptosis, dry buccal mucosa NECK : Supple, no tenderness CHEST : Decreased breath sounds, anterior chest wall tenderness HEART : RRR, systolic murmur ABDOMEN: Some distention, minimal epigastric tenderness EXTREMITIES : No LE swelling/tenderness, no other conspicuous deformities noted NEUROLOGIC : Coherent, no facial asymmetry, no other gross focality Principal Diagnosis Chest pain suspected non cardiac; Anxiety Discharge Exam General: Sitting in chair, comfortable, not in distress, on room air HEENT: EOMI, VIRGIL, MMM Chest: Clear breath sounds bilaterally, no wheezes or crackles CVS: Regular rate and rhythm, normal heart sounds, no murmur Abdomen: Soft, non tender, not distended, normal bowel sounds Neuro: Awake, alert, oriented, conversing well, non focal Extremities: No cyanosis, clubbing or edema Discharge Data Allergies Allergy/AdvReac Type Severity Reaction Status Date / Time adhesive Allergy Unknown RASH, Verified 09/15/21 22:13 REDDNESS AT SITE codeine Allergy Unknown RASH, Verified 09/15/21 22:13 SEVERE ITCHING metronidazole Allergy Unknown SEVERE Verified 09/15/21 22:13 YEAST/VAGINAL INFX morphine Allergy Unknown IRREGULAR Verified 09/15/21 22:13 HEART RATE, EXTREME SEDATION propoxyphene AdvReac Unknown A-FIB Verified 09/15/21 22:13 Consultations 09/15/21 22:02 ED Decision to Admit Stat 09/16/21 02:08 Consult Cardiology Routine Ordered Studies 09/15/21 22:41 CT Abd and Pelvis [CT abd pelvis IV con only] Urgent CT angio chest PE protocol Urgent CT head/brain wo con Urgent Laboratory Results WBC 4.72 K/ul (4.8-10.8) L 09/16/21 05:34 RBC 3.91 M/uL (3.93-5.22) L 09/16/21 05:34 Hgb 11.0 g/dl (12.0-16.0) L 09/16/21 05:34 Hct 32.7 % (34.1-44.9) L 09/16/21 05:34 MCV 83.6 fL (80.0-100.0) 09/16/21 05:34 MCH 28.1 pg (25.0-34.0) 09/16/21 05:34 MCHC 33.6 g/dL (32.0-36.0) 09/16/21 05:34 RDW Std Deviation 41.8 fL (36.4-46.3) 09/16/21 05:34 RDW Coeff of Coleman 13.8 % (11.5-14.5) 09/16/21 05:34 Plt Count 251 K/uL (130-400) 09/16/21 05:34 MPV 9.1 fL (9.4-12.3) L 09/16/21 05:34 Immature Gran % (Auto) 0.4 % 09/16/21 05:34 Neut % (Auto) 53.0 % 09/16/21 05:34 Lymph % (Auto) 35.0 % 09/16/21 05:34 [place] % (Auto) 9.3 % 09/16/21 05:34 Eos % (Auto) 1.7 % 09/16/21 05:34 Baso % (Auto) 0.6 % 09/16/21 05:34 Neut # (Auto) 2.50 K/uL (1.4-6.5) 09/16/21 05:34 Lymph # (Auto) 1.65 K/uL (1.2-3.4) 09/16/21 05:34 [place] # (Auto) 0.44 K/uL (0.24-0.82) 09/16/21 05:34 Eos # (Auto) 0.08 K/uL (0-0.50) 09/16/21 05:34 Baso # (Auto) 0.03 K/uL (0-0.2) 09/16/21 05:34 Immature Gran # (Auto) 0.02 K/uL (0.00-0.02) 09/16/21 05:34 PT 10.9 Seconds (9.0-12.0) 09/15/21 19:46 INR 1.0 (0.9-1.1) 09/15/21 19:46 APTT 27.1 Seconds (21.0-31.0) 09/16/21 05:34 PTT Ratio 1.0 09/16/21 05:34 Sodium 137 mmol/L (136-145) 09/16/21 05:34 Potassium 4.5 mmol/L (3.5-5.1) D 09/16/21 05:34 Chloride 109 mmol/L (98-107) H 09/16/21 05:34 Carbon Dioxide 24 mmol/L (21-32) 09/16/21 05:34 Anion Gap 4 (3-11) 09/16/21 05:34 BUN 17 mg/dl (6-23) 09/16/21 05:34 Creatinine 0.57 mg/dl (0.6-1.2) L 09/16/21 05:34 Est Cr Clr Drug Dosing 57.8 ml/min 09/16/21 05:34 Est GFR ( Amer) 95.3 ml/min 09/16/21 05:34 Est GFR (Non-Af Amer) 82.2 ml/min 09/16/21 05:34 BUN/Creatinine Ratio 29.8 (10-20) H 09/16/21 05:34 Glucose 101 mg/dl (70-99(Fasting)) H 09/16/21 05:34 Calcium 8.4 mg/dl (8.5-10.1) L 09/16/21 05:34 Magnesium 2.0 mg/dl (1.7-2.4) 09/15/21 19:46 Total Bilirubin 1.1 mg/dl (0.2-1.0) H 09/15/21 19:46 AST 11 U/L (13-39) L 09/15/21 19:46 ALT 3 U/L (7-52) L 09/15/21 19:46 Alkaline Phosphatase 58 U/L (34-104) 09/15/21 19:46 Troponin I High Sens 11.4 pg/ml (0-14) 09/16/21 12:01 B-Natriuretic Peptide 57 pg/ml (0-100) 09/15/21 22:55 Total Protein 6.5 gm/dl (6.0-8.3) 09/15/21 19:46 Albumin 3.8 gm/dl (3.4-5.0) 09/15/21 19:46 Globulin 2.7 gm/dl (2.5-4.0) 09/15/21 19:46 Albumin/Globulin Ratio 1.4 (0.9-2) 09/15/21 19:46 Lipase 35 U/L (11-82) 09/15/21 19:46 SARS-CoV-2, RNA, NAAT NEGATIVE (NEGATIVE) 09/15/21 22:01 Impressions Chest X-Ray 09/15/21 19:44 XR chest 1V portable HISTORY: Atypical Chest Pain COMPARISON: Chest 11/05/2020. FINDINGS: No pneumothorax or no pleural effusions. Left basilar linear densities consistent with subsegmental atelectasis or scarring. Otherwise, no focal lung consolidations to suggest pneumonia. No evidence for pulmonary edema. The heart is borderline enlarged. There is a left-sided dual-chamber pacemaker and a right shoulder prosthesis. IMPRESSION: No acute process. ACT 112: Negative or not required by law. Electronically signed by: Elliot Singh M.D. 09/16/2021 7:32 AM Abdomen/Pelvis CT 09/15/21 22:41 CT SCAN OF THE ABDOMEN AND PELVIS WITH IV CONTRAST CLINICAL HISTORY: Generalized abdominal pain. COMPARISON STUDY: Abdominal CT dated 09/04/2021. TECHNIQUE: Following the IV administration of 118 cc of Optiray 320, CT scan of the abdomen and pelvis is performed from the lung bases to the proximal femora. Images are reviewed in the axial, sagittal, and coronal planes. IV contrast was administered without complication. A dose lowering technique was utilized adhering to the principles of ALARA. FINDINGS: Lung bases: The heart is mildly enlarged and without pericardial effusion. Pacemaker leads are in place. There is bibasilar scarring/atelectasis. No airspace consolidation or large pleural effusion is identified. Subcentimeter pulmonary nodules at both lung bases are unchanged and measure up to 5 mm. A calcified granuloma seen at the right lung base. Liver: The contrast-enhanced liver is normal in size, contour, and attenuation. There is mild central intrahepatic biliary ductal dilatation. The hepatic veins and portal veins are patent. Gallbladder: Surgically absent. Spleen: Normal in size and attenuation. Pancreas: Atrophic and grossly unremarkable. Adrenal glands: A 1.5 cm left adrenal nodule is unchanged. The right adrenal gland is normal in appearance. Kidneys: The contrast enhanced kidneys demonstrate mild cortical atrophy and are without hydronephrosis. The kidneys enhance symmetrically. A 13 mm cyst is noted in the left kidney. Abdominal vasculature: The abdominal aorta is normal in course and caliber noting advanced atherosclerotic calcification. Bowel: There is postoperative change from sigmoid colon resection with colocolonic anastomosis. No bowel obstruction is seen. There is moderate to advanced diverticulosis of the remaining colon without CT evidence of acute diverticulitis. Moderate fecal retention is seen throughout the colon. The appendix is well-visualized and normal. Peritoneum: There is no intraperitoneal free air or abdominal ascites. There is a fat-containing umbilical hernia. Lymphadenopathy: None. Pelvic viscera: The bladder wall appears mildly thickened and hyperemic with surrounding infiltration. The uterus is surgically absent. No adnexal lesion is seen. Skeletal structures: The skeletal structures are heterogeneously osteopenic. There is moderate lumbosacral spondylosis No lytic or blastic lesions are seen. IMPRESSION: 1. Question cystitis. Correlate with clinical findings and urinalysis. 2. Moderate to advanced diverticulosis of the remaining colon without CT evidence of acute diverticulitis. 3. Additional findings as above. ACT 112: Negative or not required by law. Electronically signed by: Lars Amaya M.D. 09/16/2021 7:57 AM Chest CTA 09/15/21 22:41 CHEST CTA for PULMONARY ARTERIES CT DOSE: 1329.03 mGy.cm HISTORY: Atypical chest pain. Shortness of breath. TECHNIQUE: Multiaxial CT images of the chest were performed following the intravenous administration of contrast to evaluate the pulmonary arteries. Maximal intensity projection images were also obtained. A dose lowering technique was utilized adhering to the principles of ALARA. COMPARISON STUDY: Chest CT 05/30/2021. FINDINGS: Please refer to same day abdomen and pelvis CT for further evaluation of the abdominal structures. There is a stable 15 mm left adrenal gland nodule. No pleural or pericardial effusions. The heart is borderline enlarged. Normal esophagus. There is a 1.6 cm right thyroid nodule/cyst which remains unchanged. There is a left-sided dual-chamber pacemaker. No mediastinal or hilar lymphadenopathy. No pleural or pericardial effusions. Normal caliber thoracic aorta with no evidence for dissection. No filling defects within the pulmonary arteries to suggest a pulmonary embolus. There is a right total shoulder arthroplasty. No fractures within the visualized osseous structures. The central airways are patent. No pneumothorax. Left basilar linear scarlike densities are noted. Multiple scattered subcentimeter pulmonary nodules remain unchanged. Dominant spiculated nodule within the right upper lobe on image 240 measures 9 mm. No new focal lung consolidations to suggest pneumonia. IMPRESSION: 1. No evidence for pulmonary embolus. 2. Stable scattered subcentimeter pulmonary nodules with the largest spiculated nodule within the right upper lobe measuring 9 mm. 3. Additional findings as described above. ACT 112: Negative or not required by law. Electronically signed by: Elliot Singh M.D. 09/16/2021 7:[address] 09/15/21 22:[address] DOSE: HISTORY: Headache, on eliquis TECHNIQUE: Multiaxial CT images of the head were performed without the use of intravenous contrast. Automated exposure control was utilized for this study. A dose lowering technique was utilized adhering to the principles of ALARA. Comparison: Head CT 09/05/2021. Findings: The paranasal sinuses and mastoid air cells are clear. The calvarium and skull base are intact. There is no mass, hematoma, midline shift, acute i nfarct. White matter hypodensity is nonspecific but suggestive of microvascular ischemic change. The ventricles and sulci demonstrate mild age-related involutional changes. Prior left frontotemporal craniotomy with a left suprasellar aneurysm clip again noted. Impression: No significant change compared to the prior study. No acute intracranial abnormality. ACT 112: Negative or not required by law. Electronically signed by: Elliot Singh M.D. 09/16/2021 7:15 AM Hospital Course (1) Non-cardiac chest pain: (2) Anxiety: Plan 81 year old female who presented to the ED for recurrent atypical chest pressure/shortness of breath- second admission in the last week for similar symptoms. Her tropx 4 were negative. EKG and tele with no acute changes. She was seen by cardio and her episodes were attributed to anxiety and recommended psych eval however patient refused psych eval. Her metoprolol was increased to 50 bid per cardio to aid with intermittent palpitations/sinus tach which may be contributing to her symptoms. She had negative stress test in Dec 2020. No further work up was recommended per cardio. She feels much better today. Her pain is resolved and feels ready to go home. She is anxious about her , their increasing age and limitations coming from that (not being able to do th ings that they could do). No close family members around. However she does not want to move to a personal fci or assisted living. She was seen by physical therapy and cleared for discharge home without any needs. She is comfortable and stable for discharge. Recommended follow up with PCP for further management of her anxiety and referral to therapist. Psych did suggest that her remeron might be increased to 22.5 mg hs rather than 30 mg hs, if needed. Total Time Total Time Spent Total Time Spent (In Minutes): 35 Discharge Plan Discharge Items Patient Disposition: Home - Self-Care Reason For Visit: CHEST PAIN Discharge Diagnosis: Chest pain, suspected non cardiac, Anxiety Activity: Resume your previous activity Non-emergency contact: Primary Care Provider Call non-emergency contact if: you have any medication questions, your symptoms worsen and your pain is concerning for you Follow-up/Referrals: Chung Arrington DO [Primary Care Provider] - (Date & Time 09/23/2021 11:20 AM Provider Chung Arrington DO Department [facility] ) Diet: Heart Healthy Addtl Attending Provider Instructions: You do not have a heart attack. Your heart enzymes, EKG and heart monitor looks fine. Anxiety could be contributing to your symptoms. Please talk to your family doctor about medication adjustment for your anxiety and referral to therapist. Psychiatry suggested that if needed, Remeron can be increased to 22.5 mg daily rather than increasing to 30 mg daily but will defer to the family doctor. Your metoprolol has been increased to 50 mg twice daily per cardiology, rest of the medications are the same. Follow up with family doctor and heart doctor. Pending Studies at Discharge: No Stand-Alone Forms: My [facility], Smoking Cessation Medications and DC Order Prescriptions: Continued melatonin 10 mg tablet 10 mg PO HS PRN (Reason: Sleep) lisinopril 5 mg Tablet 5 mg PO QAM magnesium oxide 400 mg magnesium Tablet 400 mg PO QAM docusate sodium [Stool Softener] 100 mg Capsule 100 mg PO HS PRN (Reason: Constipation) omega 2-[id number]-fish oil [Fish Oil] 1,200 (144-216) mg Capsule 2 cap PO BID amiodarone 200 mg Tablet 100 mg PO QAM pantoprazole 40 mg Tablet,Delayed Release (Dr/Ec) 40 mg PO QAM Glucosamine Chondroitin 550-30-1 mg Capsule 2 cap PO QAM Eliquis 2.5 mg Tablet 2.5 mg PO BID magnesium hydroxide [Milk of Magnesia] 400 mg/5 mL Suspension 15 ml PO DAILY PRN (Reason: Constipation) furosemide [Lasix] 20 mg tablet 20 mg PO 2XWK PRN (Reason: sweling and weight gain) Qty: 30 0RF melatonin 3 mg Tablet 6 mg PO HS Qty: 30 0RF mirtazapine 15 mg Tablet 15 mg PO HS Qty: 30 0RF hydroxyzine HCl 10 mg Tablet 10 mg PO Q6 PRN (Reason: anxiety) Qty: 20 0RF Changed metoprolol tartrate 25 mg Tablet 50 mg PO BID Qty: 60 0RF Discharge Orders: Discharge Order (Routine); Ordered 09/17/21 Ordered By: Pablo Velázquez Admission Data Admit Date/Time: 09/16/21 00:15 Attending Provider: Pablo Velázquez Admit Provider: Tam Polo Primary Care Provider: Chung Arrington Other Providers: Tam Polo ; Angel Dennisbury,Bao J ; Sj [place] ; Jose Joseph ; Brad Perry. ; German Raya ; Sonya Carrasco ; Lilli Carranza ; Saritha Prado ; Danny Linares Other Interventions: Discharge Summary Assessment (RN) Last Done: 09/17/21 10:52
== END 2021-09-17 12:56 | disposition home or self-care (01) ==
LOC: ED 19:37 → 2E 19:37 → SUATTDRO 09-16 00:15 → 2E 09-16 01:33

== ENCOUNTER 2021-09-23 07:14 | Observation (INO) ==
[2021-09-23] MEDS ORDERED: SODIUM CHLORIDE 0.9% 1000ML 1,000 ML IV SCH (07:45)
[2021-09-23] MEDS ORDERED: ACETAMINOPHEN 500 MG TAB PO STA (07:45)
--- NOTE | 2021-09-23 07:59 | Emergency Department Note ---
History of Present Illness General Chief complaint: Fall Stated complaint: Fall Time Seen by Provider: 09/23/21 07:28 History of Present Illness 89-year-old female presents to the ED with a chief complaint of a fall in the bathroom this morning. The patient states that she does not recall falling. She is chronically on Eliquis for history of A. fib. She hit her head but she is unsure of what she hit her head on. She states that she is not sure why she fell. She recently has not been feeling well. Somewhat of a poor historian. No family is in the room with the patient. Home Medications Medication Instructions Recorded Confirmed Type lisinopril 5 mg tablet 5 mg PO QAM 01/30/18 09/15/21 History melatonin 10 mg tablet 10 mg PO HS PRN Sleep 10/26/18 09/15/21 History magnesium oxide 400 mg PO QAM 12/31/19 09/15/21 History docusate sodium 100 mg capsule 100 mg PO HS PRN Constipation 03/10/20 09/15/21 History (Stool Softener) omega 1-lyt-wjw-fish oil 1,200 mg 2 cap PO BID 03/10/20 09/15/21 History (144 mg-216 mg) capsule (Fish Oil) amiodarone 200 mg tablet 100 mg PO QAM 05/03/20 09/15/21 History apixaban 2.5 mg tablet (Eliquis) 2.5 mg PO BID 05/03/20 09/15/21 History glucosamine sulf dipot 2 cap PO QAM 05/03/20 09/15/21 History chlr,msm,chond 550 mg-C 30 mg-yennifer 1 mg capsule (Glucosamine Chondroitin) pantoprazole 40 mg tablet,delayed 40 mg PO QAM 05/03/20 09/15/21 History release magnesium hydroxide 400 mg/5 mL 15 ml PO DAILY PRN Constipation 05/25/20 09/15/21 History oral suspension (Milk of Magnesia) furosemide 20 mg tablet (Lasix) 20 mg PO 2XWK PRN sweling and 10/30/20 09/15/21 Rx weight gain #30 tabs hydroxyzine HCl 10 mg tablet 10 mg PO Q6 PRN anxiety #20 tabs 09/06/21 09/15/21 Rx melatonin 3 mg tablet 6 mg PO HS #30 tabs 09/06/21 09/15/21 Rx mirtazapine 15 mg tablet 15 mg PO HS #30 tabs 09/06/21 09/15/21 Rx metoprolol tartrate 25 mg tablet 50 mg PO BID #60 tabs 09/17/21 09/15/21 Rx Allergies Allergy/AdvReac Type Severity Reaction Status Date / Time adhesive Allergy Unknown RASH, Verified 09/15/21 22:13 REDDNESS AT SITE codeine Allergy Unknown RASH, Verified 09/15/21 22:13 SEVERE ITCHING metronidazole Allergy Unknown SEVERE Verified 09/15/21 22:13 YEAST/VAGINAL INFX morphine Allergy Unknown IRREGULAR Verified 09/15/21 22:13 HEART RATE, EXTREME SEDATION propoxyphene AdvReac Unknown A-FIB Verified 09/15/21 22:13 Past Med/Surg History Medical History 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 Bay History of lung cancer 1993- s/p RUL lung resection History of trigger finger multiple to both hands Hyperlipidemia Hypertension Longstanding LBBB (left bundle branch block) Chronic per cardio records Pacemaker Placed Mar 16, 2020> [facility] > follows Dr. 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 Bay SOB (shortness of breath) TIA (transient ischemic attack) no further issues > 2018 > doesn't follow neuro Surgical History H/O section x1 H/O hemorrhoidectomy H/O ultrasound guided needle biopsy of lung History of cardiac cath 2010 - no obstructive CAD History of carpal tunnel release bilat History of cataract surgery bilat History of colon resection 8 inches > 2001 History of colonoscopy History of hysterectomy History of lung surgery 1993 > RUL > due to cancer > no chemo/radiation History of right shoulder replacement reverse History of spinal surgery Hx of cholecystectomy Hx of exploratory thoracotomy Family History Aunt Diabetes Other Abdominal aortic aneurysm Stroke Social History (Reviewed 09/23/21 @ 07:55 by HEMANT Melendez Smoking Status: Former smoker Tobacco Type: Cigarettes Second Hand Exposure: No; Hx Alcohol Use: No Hx Substance Use: No Preferred Language: Persian Communication Ability: Effective Visual Impairment: Limited Hearing Ability: Hard of Hearing Reference Services Head Required: No Beliefs That Will Affect Care: None marital status: Current Living Situation: Spouse How many Children do You have: 1 Feels Safe at Home: Yes Assistive Devices: Cane and Walker Review of Systems A total of 10 systems reviewed and were otherwise negative Physical Exam Vital Signs Vital Signs - 24 hr 09/23/21 07:19 09/23/21 07:19 09/23/21 07:25 Temperature 36.4 C L Temperature Source Oral Pulse Rate 117 H 117 H Pulse Rate from SpO2 Sensor 117 H Respiratory Rate 20 23 Respiratory Effort / Characteristics Non-Labored Spontaneous Respiratory Depth Normal Respiratory Pattern Regular Blood Pressure 117/81 134/76 Blood Pressure Mean 93 95 Pulse Oximetry 96 96 Oxygen Delivery Method Room Air Sepsis Recent Fever Within 48 Hours No Sepsis New/Unexplained Change in Mental Status No Sepsis Action Taken by Nursing No Action Required 09/23/21 07:25 09/23/21 07:30 09/23/21 07:30 Temperature Temperature Source Pulse Rate 114 H 110 H Pulse Rate from SpO2 Sensor 114 H 108 H Respiratory Rate 18 18 Respiratory Effort / Characteristics Respiratory Depth Respiratory Pattern Blood Pressure 155/67 H Blood Pressure Mean 96 Pulse Oximetry 97 95 Oxygen Delivery Method Sepsis Recent Fever Within 48 Hours Sepsis New/Unexplained Change in Mental Status Sepsis Action Taken by Nursing 09/23/21 08:00 09/23/21 08:00 09/23/21 08:38 Temperature Temperature Source Pulse Rate 103 H 100 H Pulse Rate from SpO2 Sensor Respiratory Rate 24 17 Respiratory Effort / Characteristics Respiratory Depth Respiratory Pattern Blood Pressure 131/99 Blood Pressure Mean 109 Pulse Oximetry Oxygen Delivery Method Sepsis Recent Fever Within 48 Hours Sepsis New/Unexplained Change in Mental Status Sepsis Action Taken by Nursing 09/23/21 08:39 09/23/21 08:39 09/23/21 09:00 Temperature Temperature Source Pulse Rate 100 H Pulse Rate from SpO2 Sensor 100 H Respiratory Rate 25 H Respiratory Effort / Characteristics Respiratory Depth Respiratory Pattern Blood Pressure 157/66 H 124/64 Blood Pressure Mean 96 84 Pulse Oximetry 95 Oxygen Delivery Method Sepsis Recent Fever Within 48 Hours Sepsis New/Unexplained Change in Mental Status Sepsis Action Taken by Nursing 09/23/21 09:00 09/23/21 09:30 09/23/21 09:30 Temperature Temperature Source Pulse Rate 98 H 94 H Pulse Rate from SpO2 Sensor 95 H 94 H Respiratory Rate 14 16 Respiratory Effort / Characteristics Respiratory Depth Respiratory Pattern Blood Pressure 120/58 L Blood Pressure Mean 78 Pulse Oximetry 94 95 Oxygen Delivery Method Sepsis Recent Fever Within 48 Hours Sepsis New/Unexplained Change in Mental Status Sepsis Action Taken by Nursing CONSTITUTIONAL/VITAL SIGNS: Reviewed / noted above. GENERAL: Non-toxic in appearance. INTEGUMENTARY: Warm, dry, and [place]. HEAD: Normocephalic. EYES: without scleral icterus or trauma. ENT/OROPHARYNX: clear and moist. LYMPHADENOPATHY/NECK: Is supple without lymphadenopathy or meningismus. RESPIRATORY: Clear to auscultation bilaterally. No increased work of breathing. CARDIOVASCULAR: Regular rate and rhythm. GI/ABDOMEN: Soft and nontender. No organomegaly or pulsatile mass. EXTREMITIES: Warm and well perfused. BACK: No CVA tenderness. NEUROLOGICAL: Intact without focal deficits. PSYCHIATRIC: normal affect. MUSCULOSKELETAL: Normally developed with good muscle tone. TRIAGE NURSING DOCUMENTATION REVIEWED. Course Administered Medications Discontinued Medications Acetaminophen (Acetaminophen 500 Mg Tab) 1,000 mg PO NOW STA Stop: 09/23/21 07:46 Last Admin: 09/23/21 07:52 Dose: 1,000 mg Documented By: HS Sodium Chloride (Nss 1000ml) 1,000 mls @ 999 mls/hr IV .Q1H1M BERNARDINO Stop: 09/23/21 08:45 Last Infusion: 09/23/21 08:56 Dose: 0 mls/hr Documented By: Admin: 09/23/21 07:53 Dose: 999 mls/hr Documented By: HS Ketorolac Tromethamine (Ketorolac 30 Mg/Ml Vial) 30 mg IV NOW STA Stop: 09/23/21 08:58 Last Admin: 09/23/21 09:00 Dose: 30 mg Documented By: HS Medical Decision Making Differential Diagnosis Differential includes close head injury, intracranial bleed, facial trauma, cervical spine trauma, chest and thoracic trauma, abdominal and intra-abdominal trauma, spine neurologic trauma, extremity trauma. Differential includes acute coronary syndrome, myocardial infarction, CVA, TIA, anemia, infection, p neumonia, UTI, pyelonephritis, poor nutrition, dehydration, electrolyte disturbance,hypoglycemia. Medical Records Attestation: I reviewed the patient's medical records. Home Medications Current Medication List: was personally reviewed by me Laboratory Data Attestation: I reviewed the patient's lab results. Result diagrams: 09/23/21 07:24 09/23/21 07:24 Lab Results 09/23/21 09/23/21 09/23/21 Range/Units 07:24 07:24 07:24 WBC 5.95 (4.8-10.8) K/ul RBC 5.04 (3.93-5.22) M/uL Hgb 14.0 (12.0-16.0) g/dl Hct 42.5 (34.1-44.9) % MCV 84.3 (80.0-100.0) fL MCH 27.8 (25.0-34.0) pg MCHC 32.9 (32.0-36.0) g/dL RDW Std Deviation 40.4 (36.4-46.3) fL RDW Coeff of Coleman 13.2 (11.5-14.5) % Plt Count 287 (130-400) K/uL MPV 9.6 (9.4-12.3) fL Immature Gran % (Auto) 0.3 % Neut % (Auto) 55.5 % Lymph % (Auto) 33.8 % Mckean % (Auto) 8.6 % Eos % (Auto) 1.0 % Baso % (Auto) 0.8 % Neut # (Auto) 3.30 (1.4-6.5) K/uL Lymph # (Auto) 2.01 (1.2-3.4) K/uL Mckean # (Auto) 0.51 (0.24-0.82) K/uL Eos # (Auto) 0.06 (0-0.50) K/uL Baso # (Auto) 0.05 (0-0.2) K/uL Immature Gran # (Auto) 0.02 (0.00-0.02) K/uL Sodium 139 (136-145) mmol/L Potassium 3.7 (3.5-5.1) mmol/L Chloride 104 (98-107) mmol/L Carbon Dioxide 28 (21-32) mmol/L Anion Gap 7 (3-11) BUN 20 (6-23) mg/dl Creatinine 0.69 (0.6-1.2) mg/dl Est Cr Clr Drug Dosing 47.7 ml/min Est GFR ( Amer) 89.5 ml/min Est GFR (Non-Af Amer) 77.2 ml/min BUN/Creatinine Ratio 29.0 H (10-20) Glucose 101 H (70-99(Fasting)) mg/dl Calcium 9.6 (8.5-10.1) mg/dl Magnesium 2.0 (1.7-2.4) mg/dl Total Bilirubin 1.1 H (0.2-1.0) mg/dl AST 13 (13-39) U/L ALT 12 (7-52) U/L Alkaline Phosphatase 64 (34-104) U/L Total Creatine Kinase 24 L (26-192) U/L Troponin I High Sens 20.0 H D (0-14) pg/ml Total Protein 7.1 (6.0-8.3) gm/dl Albumin 4.1 (3.4-5.0) gm/dl Globulin 3.0 (2.5-4.0) gm/dl Albumin/Globulin Ratio 1.4 (0.9-2) TSH < 0.010 L (0.300-4.500) uIu/ml Free T4 5.20 H (0.61-1.60) ng/dl 09/23/21 Range/Units 09:44 WBC (4.8-10.8) K/ul RBC (3.93-5.22) M/uL Hgb (12.0-16.0) g/dl Hct (34.1-44.9) % MCV (80.0-100.0) fL MCH (25.0-34.0) pg MCHC (32.0-36.0) g/dL RDW Std Deviation (36.4-46.3) fL RDW Coeff of Coleman (11.5-14.5) % Plt Count (130-400) K/uL MPV (9.4-12.3) fL Immature Gran % (Auto) % Neut % (Auto) % Lymph % (Auto) % Mckean % (Auto) % Eos % (Auto) % Baso % (Auto) % Neut # (Auto) (1.4-6.5) K/uL Lymph # (Auto) (1.2-3.4) K/uL Mckean # (Auto) (0.24-0.82) K/uL Eos # (Auto) (0-0.50) K/uL Baso # (Auto) (0-0.2) K/uL Immature Gran # (Auto) (0.00-0.02) K/uL Sodium (136-145) mmol/L Potassium (3.5-5.1) mmol/L Chloride (98-107) mmol/L Carbon Dioxide (21-32) mmol/L Anion Gap (3-11) BUN (6-23) mg/dl Creatinine (0.6-1.2) mg/dl Est Cr Clr Drug Dosing ml/min Est GFR ( Amer) ml/min Est GFR (Non-Af Amer) ml/min BUN/Creatinine Ratio (10-20) Glucose (70-99(Fasting)) mg/dl Calcium (8.5-10.1) mg/dl Magnesium (1.7-2.4) mg/dl Total Bilirubin (0.2-1.0) mg/dl AST (13-39) U/L ALT (7-52) U/L Alkaline Phosphatase (34-104) U/L Total Creatine Kinase (26-192) U/L Troponin I High Sens 38.3 H D (0-14) pg/ml Total Protein (6.0-8.3) gm/dl Albumin (3.4-5.0) gm/dl Globulin (2.5-4.0) gm/dl Albumin/Globulin Ratio (0.9-2) TSH (0.300-4.500) uIu/ml Free T4 (0.61-1.60) ng/dl Imaging Data Radiologist's Impression: Cervical Spine CT 09/23/21 07:45 CT cervical spine wo con CT DOSE: 860.15 mGy.cm CLINICAL HISTORY: 89 years-old Female with fall, pain. Acute head and neck injury status post fall COMPARISON: CT head of same day TECHNIQUE: Multiple axial CT images of the cervical spine were obtained without contrast. A dose lowering technique was utilized adhering to the principles of ALARA. FINDINGS: Demineralized appearance of the bones. Multilevel degenerative changes. Multilevel neural foraminal narrowing. Straightening of the normal cervical lordosis. Degenerative auto partial fusion is noted at several levels. 1.9 cm hypodense right-sided thyroid nodule. The visualized lung apices appear clear. IMPRESSION: No acute cervical spine fracture or subluxation. ACT 112: Negative or not required by law. The above report was generated using voice recognition software. It may contain grammatical, syntax or spelling errors. Electronically signed by: Chacho Schrader M.D. 09/23/2021 8:[address] 09/23/21 07:45 CT head/brain wo con CLINICAL HISTORY: fall, hit head Technique: Contiguous axial CT images of the head were acquired from the base of the skull to the vertex without intravenous contrast administration. Images were viewed in brain, subdural and bone windows. Automated dose lowering techniques and/or adjustment according to patient size were utilized for this exam. Comparison: Comparison is made to CT head 09/15/2021 Findings: The ventricles, basal cisterns, and cerebral sulci are normal. There is no acute intracranial hemorrhage or evidence of acute territorial infarction. Neither mass effect, shift of the midline structures, nor abnormal extra-axial fluid collections are shown. Imaged portions of the paranasal sinuses and mastoid air cells are clear. The orbits appear normal. There are no acute fractures of the calvaria. Soft tissue swelling is seen in the left posterior scalp Impression: No acute intracranial hemorrhage or skull fractures. Scalp swelling is seen in the left posterior scalp. ACT 112: Negative or not required by law. Electronically signed by: Zach Christy M.D. 09/23/2021 8:53 AM Chest X-Ray 09/23/21 07:46 XR chest 1V portable CLINICAL HISTORY: weakness TECHNIQUE: Single frontal radiograph of the chest was obtained. Comparison: Comparison is made to chest radiograph 09/15/2021 FINDINGS: Dual lead pacemaker is seen. Right reverse shoulder arthroplasty is seen. Calcified aortic knob is seen. Prominence and cephalization of the vasculature is seen. No evidence of pleural effusion or pneumothorax. IMPRESSION: No acute chest disease. ACT 112: Negative or not required by law. Electronically signed by: Zach Christy M.D. 09/23/2021 9:02 AM ECG Data Attestation: I personally reviewed and interpreted this ECG as follows: Additional Comments: 12 Lead EKG: Per my interpretation shows a sinus tach at a rate of 113. No ST elevation. No PVCs. Normal QTC. No significant change from prior. MDM Narrative 89-year-old female presents after a fall in the bathroom chronically on Eliquis for A. fib. She does complain of a headache. The patient has a hematoma of the left side of the head. Her CT scan of the brain and cervical spine did not show acute process. EKG shows a sinus tach at a rate of 113. CBC and chemistry panel was unremarkable. Troponin was slightly elevated. A repeat troponin shows that it is increased slightly. Chest x-ray was negative for acute d isease. Thyroid function testing is abnormal suggesting possibly hyperthyroidism. The patient was told the results of the test. She will be seen by the hospitalist for further inpatient evaluation and care. Impression & Plan Syncope, Elevated troponin, Hyperthyroidism, Traumatic hematoma of head Discharge Plan Visit Data Chief Complaint: Fall Stated Complaint: Fall ED Provider: Tacho Man Discharge Problem: Syncope, Elevated troponin, Hyperthyroidism, Traumatic hematoma of head Patient Disposition: Being Evaluated by Hospitalist Forms Stand Alone Forms: [facility] Prescriptions Prescriptions: No Action melatonin 10 mg tablet 10 mg PO HS PRN (Reason: Sleep) lisinopril 5 mg Tablet 5 mg PO QAM magnesium oxide 400 mg magnesium Tablet 400 mg PO QAM docusate sodium [Stool Softener] 100 mg Capsule 100 mg PO HS PRN (Reason: Constipation) omega 6-dpa-fzg-fish oil [Fish Oil] 1,200 (144-216) mg Capsule 2 cap PO BID amiodarone 200 mg Tablet 100 mg PO QAM pantoprazole 40 mg Tablet,Delayed Release (Dr/Ec) 40 mg PO QAM Glucosamine Chondroitin 550-30-1 mg Capsule 2 cap PO QAM Eliquis 2.5 mg Tablet 2.5 mg PO BID magnesium hydroxide [Milk of Magnesia] 400 mg/5 mL Suspension 15 ml PO DAILY PRN (Reason: Constipation) metoprolol tartrate 25 mg Tablet 50 mg PO BID Qty: 60 0RF furosemide [Lasix] 20 mg tablet 20 mg PO 2XWK PRN (Reason: sweling and weight gain) Qty: 30 0RF melatonin 3 mg Tablet 6 mg PO HS Qty: 30 0RF mirtazapine 15 mg Tablet 15 mg PO HS Qty: 30 0RF hydroxyzine HCl 10 mg Tablet 10 mg PO Q6 PRN (Reason: anxiety) Qty: 20 0RF Referrals Referrals: Chung Arrington DO [Primary Care Provider] -
[2021-09-23 08:22] LABS: Basophils # (auto) 0.05 K/uL (0-0.2); Basophils % (auto) 0.8 %; Eosinophils # (auto) 0.06 K/uL (0-0.50); Hematocrit (blood only) 42.5 % (34.1-44.9); Immature Granulocytes # (auto) 0.02 K/uL (0.00-0.02); Immature Granulocytes % (auto) 0.3 %; Lymphocytes # (auto) 2.01 K/uL (1.2-3.4); Lymphocytes % (auto) 33.8 %; Mean Corpuscular Hemoglobin 27.8 pg (25.0-34.0); Mean Corpuscular Hgb Conc 32.9 g/dL (32.0-36.0); Mean Corpuscular Volume 84.3 fL (80.0-100.0); Mean Platelet Volume 9.6 fL (9.4-12.3); Monocytes # (auto) 0.51 K/uL (0.24-0.82); Monocytes % (auto) 8.6 %; Neutrophils % (auto) 55.5 %; Platelet Count 287 K/uL (130-400); RDW Coefficient of Variation 13.2 % (11.5-14.5); RDW Standard Deviation 40.4 fL (36.4-46.3); Red Blood Count 5.04 M/uL (3.93-5.22); White Blood Count 5.95 K/ul (4.8-10.8)
--- NOTE | 2021-09-23 08:54 | CT Scan Report ---
CT head/brain wo con CLINICAL HISTORY: fall, hit head Technique: Contiguous axial CT images of the head were acquired from the base of the skull to the katy derick without intravenous contrast administration. Images were viewed in brain, subdural and bone [facility]. Automated dose lowering techniques and/or adjustment according to patient size were utilized for this exam. Comparison: Comparison is made to CT head 09/15/2021 Findings: The ventricles, basal cisterns, and cerebral sulci are normal. There is no acute intracranial hemorrh age or evidence of acute territorial infarction. Neither mass effect, shift of the midline structures , nor abnormal extra-axial fluid collections are shown. Imaged portions of the paranasal sinuses and mastoid air cells are clear. The orbits appear normal. There are no acute fractures of the calvaria. Soft tissue swelling is seen in the left posterior sca lp Impression: No acute intracranial hemorrhage or skull fractures. Scalp swelling is seen in the left posterior sca lp. ACT 112: Negative or not required by law. Electronically signed by: Zach Christy M.D. 09/23/2021 8:53 AM
[2021-09-23] MEDS ORDERED: KETOROLAC 30 MG/ML VIAL IV STA (08:57)
[2021-09-23 08:58] LABS: Albumin Globulin Ratio 1.4 (0.9-2); Albumin Level 4.1 gm/dl (3.4-5.0); Bilirubin,Total 1.1 mg/dl (0.2-1.0); Calcium 9.6 mg/dl (8.5-10.1); Creatinine Clr Calc Pharmacy 47.7 ml/min; Est GFR (African American) 89.5 ml/min; Est GFR (Non-African American) 77.2 ml/min; Potassium 3.7 mmol/L (3.5-5.1); Total Protein 7.1 gm/dl (6.0-8.3)
--- NOTE | 2021-09-23 08:58 | CT Scan Report ---
CT cervical spine wo con CT DOSE: 860.15 mGy.cm CLINICAL HISTORY: 89 years-old Female with fall, pain. Acute head and neck injury status post fall COMPARISON: CT head of same day TECHNIQUE: Multiple axial CT images of the cervical spine were obtained without contrast. A dose low ering technique was utilized adhering to the principles of ALARA. FINDINGS: Demineralized appearance of the bones. Multilevel degenerative changes. Multilevel neural f oraminal narrowing. Straightening of the normal cervical lordosis. Degenerative auto partial fusion i s noted at several levels. 1.9 cm hypodense right-sided thyroid nodule. The visualized lung apices appear clear. IMPRESSION: No acute cervical spine fracture or subluxation. ACT 112: Negative or not required by law. The above report was generated using voice recognition software. It may contain grammatical, syntax o r spelling errors. Electronically signed by: Chacho Schrader M.D. 09/23/2021 8:56 AM
--- NOTE | 2021-09-23 09:03 | XRay Report ---
XR chest 1V portable CLINICAL HISTORY: weakness TECHNIQUE: Single frontal radiograph of the chest was obtained. Comparison: Comparison is made to chest radiograph 09/15/2021 FINDINGS: Dual lead pacemaker is seen. Right reverse shoulder arthroplasty is seen. Calcified aortic knob is se en. Prominence and cephalization of the vasculature is seen. No evidence of pleural effusion or pneum othorax. IMPRESSION: No acute chest disease. ACT 112: Negative or not required by law. Electronically signed by: Zach Christy M.D. 09/23/2021 9:02 AM
[2021-09-23 09:07] LABS: Thyroid Stimulating Hormone < 0.010 uIu/ml (0.300-4.500)
[2021-09-23] MEDS ORDERED: NITROGLYCERIN SL 0.4 MG/TAB TAB SL STA (12:04)
[2021-09-23] MEDS ORDERED: NITROGLYCERIN SL 0.4 MG/TAB TAB ONE (12:08)
[2021-09-23] MEDS ORDERED: ATENOLOL 25 MG TABLET PO STA (12:12)
[2021-09-23] MEDS ORDERED: ALPRAZolam 0.25 MG TABLET PO STA (12:15)
--- NOTE | 2021-09-23 12:50 | History & Physical Report ---
Date of Service September 23, 2021 Assessment & Plan (1) Syncope: Plan: Unwitnessed fall with ?syncopal episode this morning, does not remember the details. No fracture or acute abnormality in CT head and cervical spine. Unclear etiology ?orthostasis, arrhythmia, hyperthyroidism. Less concern for PE as she is on eliquis. Will check orthostatic vitals, monitor in tele, PT/OT eval (2) Hyperthyroidism: Plan: New diagnosis. Not in thyroid storm or hyperthyroid crisis. No thyroid tenderness. Prior TSH normal but downtrending, no prior T4. Currently TSH <0.01, fT4 5.2, 1.6 cm right thyroid nodule ?hot nodule. Will check T3 and thyroid ultrasound as well as TSI, TRAb. Will hold amiodarone. Denies taking any biotin or other OTC supplements. Her prior symptoms which were attributed to anxiety are likely from hyperthyroidism. Will start on atenolol 25 mg daily in lieu of lopressor and uptitrate as needed. Will start on methimazole and consult endocrinology. Will need RAIU scan as OP. (3) Elevated troponin: Plan: Trop mildly elevated, EKG with no acute ischemic changes. Had CP episode in ED but EKG unremarkable, vitals stable, SL nitro did not help. Will trend trop, monitor on tele, and consult cardio- patient is well known to them. Recently had echo during recent admission. (4) Anxiety: Plan: hyperthyroidism likely contributing. Had an anxiety episode in ED, reassured and xanax given. Will monitor. (5) Paroxysmal atrial fibrillation: Plan: in NSR. will switch lopressor to atenolol. continue eliquis. monitor on tele. Plan DVT ppx- eliquis Dispo- PCU tele DNR/DNI- confirmed at bedside Updated Edward over the phone History of Present Illness Chief Complaint: Fall, chest discomfort Primary Care Provider: Chung Arrington DO 89 year old female who presented to the ED from home with fall today. She does not remember the details of the fall. States she went to the bathroom and woke up in the floor this morning. Called her for help and was brought to the ED via EMS. Vitals stable except for sinus tachycardia. Workup showed abnormal TFTs (hyperthyroidism) with right thyroid nodule and mildly elevated troponin but no fracture or other acute abnormalities. Hospitalist service was consulted for further management. I saw and examined the patient at bedside. She complained of chest tightness and inability to breathe as I was interviewing her. Stat EKG did not show any acute ischemic changes. Stat trop was sent. SL nitro was given which did not seem to help. She was still complaining of not being able to breathe and chest discomfort but her vitals including saturation and respiratory rate was fine throughout and her chest exam was clear. She was reassured, however she kept worrying about her and wanted me to call hime to give an update. Small dose of xanax and beta shawn were ordered to ameliorate her symptoms. States she has not taken any of her morning medications today. Does not smoke or drink alcohol. Denies any fever, chills, nausea, vomiting, abd pain, cough, sore throat, dysphagia, dysphonia. Has some weight loss but denies any heat intolerance or diarrhea. Struggles with constipation. Allergies Allergy/AdvReac Type Severity Reaction Status Date / Time adhesive Allergy Unknown RASH, Verified 09/15/21 22:13 REDDNESS AT SITE codeine Allergy Unknown RASH, Verified 09/15/21 22:13 SEVERE ITCHING metronidazole Allergy Unknown SEVERE Verified 09/15/21 22:13 YEAST/VAGINAL INFX morphine Allergy Unknown IRREGULAR Verified 09/15/21 22:13 HEART RATE, EXTREME SEDATION propoxyphene AdvReac Unknown A-FIB Verified 09/15/21 22:13 Home Medications Medication Instructions Recorded Confirmed Type lisinopril 5 mg tablet 5 mg PO QAM 01/30/18 09/15/21 History melatonin 10 mg tablet 10 mg PO HS PRN Sleep 10/26/18 09/15/21 History magnesium oxide 400 mg PO QAM 12/31/19 09/15/21 History docusate sodium 100 mg capsule 100 mg PO HS PRN Constipation 03/10/20 09/15/21 History (Stool Softener) omega 8-hks-jlq-fish oil 1,200 mg 2 cap PO BID 03/10/20 09/15/21 History (144 mg-216 mg) capsule (Fish Oil) amiodarone 200 mg tablet 100 mg PO QAM 05/03/20 09/15/21 History apixaban 2.5 mg tablet (Eliquis) 2.5 mg PO BID 05/03/20 09/15/21 History glucosamine sulf dipot 2 cap PO QAM 05/03/20 09/15/21 History chlr,msm,chond 550 mg-C 30 mg-yennifer 1 mg capsule (Glucosamine Chondroitin) pantoprazole 40 mg tablet,delayed 40 mg PO QAM 05/03/20 09/15/21 History release magnesium hydroxide 400 mg/5 mL 15 ml PO DAILY PRN Constipation 05/25/20 09/15/21 History oral suspension (Milk of Magnesia) furosemide 20 mg tablet (Lasix) 20 mg PO 2XWK PRN sweling and 10/30/20 09/15/21 Rx weight gain #30 tabs hydroxyzine HCl 10 mg tablet 10 mg PO Q6 PRN anxiety #20 tabs 09/06/21 09/15/21 Rx melatonin 3 mg tablet 6 mg PO HS #30 tabs 09/06/21 09/15/21 Rx mirtazapine 15 mg tablet 15 mg PO HS #30 tabs 09/06/21 09/15/21 Rx metoprolol tartrate 25 mg tablet 50 mg PO BID #60 tabs 09/17/21 09/15/21 Rx Past Med/Surg History Medical History 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 Bay History of lung cancer 1993- s/p RUL lung resection History of trigger finger multiple to both hands Hyperlipidemia Hypertension Longstanding LBBB (left bundle branch block) Chronic per cardio records Pacemaker Placed Mar 16, 2020> [facility] > follows Dr. 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 Bay SOB (shortness of breath) TIA (transient ischemic attack) no further issues > 2017 > doesn't follow neuro Surgical History H/O section x1 H/O hemorrhoidectomy H/O ultrasound guided needle biopsy of lung History of cardiac cath 2010 - no obstructive CAD History of carpal tunnel release bilat History of cataract surgery bilat History of colon resection 8 inches > 2001 History of colonoscopy History of hysterectomy History of lung surgery 1993 > RUL > due to cancer > no chemo/radiation History of right shoulder replacement reverse History of spinal surgery Hx of cholecystectomy Hx of exploratory thoracotomy Family History Aunt Diabetes Other Abdominal aortic aneurysm Stroke Social History Smoking Status: Former smoker Tobacco Type: Cigarettes Second Hand Exposure: No; Hx Alcohol Use: No Hx Substance Use: No Preferred Language: Macanese Communication Ability: Effective Visual Impairment: Limited Hearing Ability: Hard of Hearing Grey Roll Man Required: No Beliefs That Will Affect Care: None marital status: Current Living Situation: Spouse How many Children do You have: 1 Feels Safe at Home: Yes Assistive Devices: Cane and Walker Review of Systems Review of Systems: All systems reviewed & are unremarkable except as noted in Subjective Physical Exam Physical Exam: General: Lying in bed, anxious, not in acute distress, on room air HEENT: EOMI, VIRGIL, MMM. No neck mass was felt. Chest: Clear breath sounds bilaterally, no wheezes or crackles CVS: Tachycardic, normal heart sounds, no murmur Abdomen: Soft, non tender, not distended, normal bowel sounds Neuro: Awake, alert, oriented, conversing well, non focal Extremities: No edema Psych: Anxious Results & Data [facility] Vital Signs (Past 12 Hours) Vital Signs Temp Pulse Resp BP Pulse Ox O2 Del Method 09/23/21 12:04 98 H 22 96 09/23/21 12:04 156/70 H 09/23/21 12:00 96 H 23 09/23/21 11:30 92 H 18 95 09/23/21 11:30 150/54 H 09/23/21 11:00 95 H 19 96 09/23/21 11:00 116/53 L 09/23/21 10:30 96 H 25 H 97 09/23/21 10:30 126/64 09/23/21 10:00 94 H 21 95 09/23/21 10:00 110/69 09/23/21 09:30 94 H 16 95 09/23/21 09:30 120/58 L 09/23/21 09:00 98 H 14 94 09/23/21 09:00 124/64 09/23/21 08:39 157/66 H 09/23/21 08:39 100 H 25 H 95 09/23/21 08:38 100 H 17 09/23/21 08:00 103 H 24 09/23/21 08:00 131/99 09/23/21 07:30 110 H 18 95 09/23/21 07:30 155/67 H 09/23/21 07:25 114 H 18 97 09/23/21 07:25 134/76 09/23/21 07:19 117 H 23 96 09/23/21 07:19 36.4 C L 117 H 20 117/81 96 Room Air Laboratory Results Short CBC 09/23/21 Range/Units 07:24 WBC 5.95 (4.8-10.8) K/ul Hgb 14.0 (12.0-16.0) g/dl Hct 42.5 (34.1-44.9) % Plt Count 287 (130-400) K/uL BMP 09/23/21 07:24 Sodium 139 Potassium 3.7 Chloride 104 Carbon Dioxide 28 BUN 20 Creatinine 0.69 Glucose 101 H Calcium 9.6 Cardiac Enzymes 09/23/21 Range/Units 07:24 Total Creatine Kinase 24 L (26-192) U/L Liver Function 09/23/21 Range/Units 07:24 Total Bilirubin 1.1 H (0.2-1.0) mg/dl AST 13 (13-39) U/L ALT 12 (7-52) U/L Alkaline Phosphatase 64 (34-104) U/L Albumin 4.1 (3.4-5.0) gm/dl Diagnostic Findings Cervical Spine CT 09/23/21 07:45 CT cervical spine wo con CT DOSE: 860.15 mGy.cm CLINICAL HISTORY: 89 years-old Female with fall, pain. Acute head and neck injury status post fall COMPARISON: CT head of same day TECHNIQUE: Multiple axial CT images of the cervical spine were obtained without contrast. A dose lowering technique was utilized adhering to the principles of ALARA. FINDINGS: Demineralized appearance of the bones. Multilevel degenerative changes. Multilevel neural foraminal narrowing. Straightening of the normal cervical lordosis. Degenerative auto partial fusion is noted at several levels. 1.9 cm hypodense right-sided thyroid nodule. The visualized lung apices appear clear. IMPRESSION: No acute cervical spine fracture or subluxation. ACT 112: Negative or not required by law. The above report was generated using voice recognition software. It may contain grammatical, syntax or spelling errors. Electronically signed by: Chacho Schrader M.D. 09/23/2021 8:[address] 09/23/21 07:45 CT head/brain wo con CLINICAL HISTORY: fall, hit head Technique: Contiguous axial CT images of the head were acquired from the base of the skull to the vertex without intravenous contrast administration. Images were viewed in brain, subdural and bone windows. Automated dose lowering techniques and/or adjustment according to patient size were utilized for this exam. Comparison: Comparison is made to CT head 09/15/2021 Findings: The ventricles, basal cisterns, and cerebral sulci are normal. There is no acute intracranial hemorrhage or evidence of acute territorial infarction. Neither mass effect, shift of the midline structures, nor abnormal extra-axial fluid collections are shown. Imaged portions of the paranasal sinuses and mastoid air cells are clear. The orbits appear normal. There are no acute fractures of the calvaria. Soft tissue swelling is seen in the left posterior scalp Impression: No acute intracranial hemorrhage or skull fractures. Scalp swelling is seen in the left posterior scalp. ACT 112: Negative or not required by law. Electronically signed by: Zach Christy M.D. 09/23/2021 8:53 AM Chest X-Ray 09/23/21 07:46 XR chest 1V portable CLINICAL HISTORY: weakness TECHNIQUE: Single frontal radiograph of the chest was obtained. Comparison: Comparison is made to chest radiograph 09/15/2021 FINDINGS: Dual lead pacemaker is seen. Right reverse shoulder arthroplasty is seen. Calcified aortic knob is seen. Prominence and cephalization of the vasculature is seen. No evidence of pleural effusion or pneumothorax. IMPRESSION: No acute chest disease. ACT 112: Negative or not required by law. Electronically signed by: Zach Christy M.D. 09/23/2021 9:02 AM Code Status & VTE Plan VTE Prophylaxis Plan VTE Prophylaxis will be ordered: Yes
[2021-09-23] MEDS ORDERED: methIMAzole 5 MG TABLET PO SCH (13:00)
--- NOTE | 2021-09-23 15:48 | Cardiology Consultation ---
Date of Consultation September 23, 2021 Assessment & Plan (1) Syncope: (2) Elevated troponin: (3) Hyperthyroidism: (4) Paroxysmal atrial fibrillation: As noted at the time of recent inpatient consultation last week, the patient's has been having difficulties with illness, and they are codependent with regards to caring for each other. Her pacemaker had previously been interrogated at time of presentation on 09/04/2021. Lab assessment notable for evidence of hyperthyroidism with undetectable TSH, and elevated free T4 5.2 NG per DL. Thyroid ultrasound completed, report pending at present. Recommend ongoing therapy with the patient's chronic metoprolol tartrate. As noted, she appears that breakthrough very symptomatic atrial fibrillation episodes despite treatment with verapamil. With regards to hyperthyroidism, her thyroid function and disease had been within normal limits as an outpatient in Jun, 2021. I have concerns that if we discontinue her amiodarone she will develop recurrent atrial fibrillation, and she is already complaining of an increased sense of cardiac awareness and heart racing. At present, recommend ongoing low-dose amiodarone therapy 100 mg daily pending further considerations, agree with addition of methimazole. Continue Eliquis for stroke prophylaxis. With regards to her chest pain and ischemia. She has had recent evaluations for this including negative stress testing in 2020. High-sensitivity troponin is mildly elevated, EKG noninformative given chronic findings of left bundle branch block. Recommend ongoing observation, trend troponin levels. In the absence of the patient having an ST segment elevation myocardial infarction, I think that conservative therapy is in her best interest given her generalized frailty. History of Present Illness History of Present Illness Geni Payan is an 89 year old female seen in cardiology consultation per the request of Dr Velázquez for the evaluation of fall, possible syncope, chest discomfort and elevation in troponin. Pt well known to our service. Her primary collections attorney is Dr Bay. This is her third presentation to the emergency department in less than 4 weeks. She presents today from home with an unwitnessed fall. Patient was hospitalized twice in February, having presented with syncope and developed recurrent episodes of very symptomatic atrial fibrillation with rapid ventricular response. Her previous treatment with oral verapamil was discontinued, and she was transitioned to treatment with metoprolol tartrate, and amiodarone. A permanent pacemaker was implanted for heart rate support to allow for aggressive medication therapy. At the time my evaluation the patient was resting comfortably in room 241-1 in the telemetry unit. Sinus rhythm in the 70s noted with demand right atrial pacing. She describes that her has been having difficulty with nauseousness. There were sleeping into different rooms last evening, but when she saw his light on earlier this morning at around 4 AM she got up to check on him, after determining he was okay, she went to the restroom and that was the last thing she remembers. She believes she may have fallen and hit her head. At present she describes severe generalized fatigue and vague heaviness in her chest. Patient's high-sensitivity troponin is mildly elevated at 20, 38.3, and 41.4, higher than that which was noted when these same labs were trended from 09/15/2021 until 09/16/2021, but similar to those measurements noted on 09/04/2021. Patient with significant recent stressors related to the ailing health of her . At the time presentation 09/04/2021 she had difficulty sleeping and had ingested alcohol as well as her 's medical marijuana, with subsequent presentation including nauseousness, confusion, lethargy. When she had been readmitted last week, it was felt that there is an anxiety component to her symptoms with ongoing stressors. Cardiology Problem List: 1. Longstanding hypertension 2. Chronic left bundle branch block 3. History of cerebral carotid artery aneurysm clipping 1988 4. Single episode transient atrial flutter post operatively 1988 5. Hyperlipidemia 6. Cardiac catheterization November 2010 without obstructive coronary disease 7. TIA with transient aphasia June of 2017 8. Paroxysmal atrial fibrillation with hospitalization November 07, 2019 with rapid response 9. 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 Status post right upper lobectomy 1993 Allergies Allergy/AdvReac Type Severity Reaction Status Date / Time adhesive Allergy Unknown RASH, Verified 09/15/21 22:13 REDDNESS AT SITE codeine Allergy Unknown RASH, Verified 09/15/21 22:13 SEVERE ITCHING metronidazole Allergy Unknown SEVERE Verified 09/15/21 22:13 YEAST/VAGINAL INFX morphine Allergy Unknown IRREGULAR Verified 09/15/21 22:13 HEART RATE, EXTREME SEDATION propoxyphene AdvReac Unknown A-FIB Verified 09/15/21 22:13 Home Medications Medication Instructions Recorded Confirmed Type lisinopril 5 mg tablet 5 mg PO QAM 01/30/18 09/15/21 History melatonin 10 mg tablet 10 mg PO HS PRN Sleep 10/26/18 09/15/21 History magnesium oxide 400 mg PO QAM 12/31/19 09/15/21 History docusate sodium 100 mg capsule 100 mg PO HS PRN Constipation 03/10/20 09/15/21 History (Stool Softener) omega 9-dnw-ztg-fish oil 1,200 mg 2 cap PO BID 03/10/20 09/15/21 History (144 mg-216 mg) capsule (Fish Oil) amiodarone 200 mg tablet 100 mg PO QAM 05/03/20 09/15/21 History apixaban 2.5 mg tablet (Eliquis) 2.5 mg PO BID 05/03/20 09/15/21 History glucosamine sulf dipot 2 cap PO QAM 05/03/20 09/15/21 History chlr,msm,chond 550 mg-C 30 mg-yennifer 1 mg capsule (Glucosamine Chondroitin) pantoprazole 40 mg tablet,delayed 40 mg PO QAM 05/03/20 09/15/21 History release magnesium hydroxide 400 mg/5 mL 15 ml PO DAILY PRN Constipation 05/25/20 09/15/21 History oral suspension (Milk of Magnesia) furosemide 20 mg tablet (Lasix) 20 mg PO 2XWK PRN sweling and 10/30/20 09/15/21 Rx weight gain #30 tabs hydroxyzine HCl 10 mg tablet 10 mg PO Q6 PRN anxiety #20 tabs 09/06/21 09/15/21 Rx melatonin 3 mg tablet 6 mg PO HS #30 tabs 09/06/21 09/15/21 Rx mirtazapine 15 mg tablet 15 mg PO HS #30 tabs 09/06/21 09/15/21 Rx metoprolol tartrate 25 mg tablet 50 mg PO BID #60 tabs 09/17/21 09/15/21 Rx Patient History Medical History 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 Bay History of lung cancer 1993- s/p RUL lung resection History of trigger finger multiple to both hands Hyperlipidemia Hypertension Longstanding LBBB (left bundle branch block) Chronic per cardio records Pacemaker Placed Mar 16, 2020> [facility] > follows Dr. 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 Bay SOB (shortness of breath) TIA (transient ischemic attack) no further issues > 2017 > doesn't follow neuro Surgical History H/O section x1 H/O hemorrhoidectomy H/O ultrasound guided needle biopsy of lung History of cardiac cath 2010 - no obstructive CAD History of carpal tunnel release bilat History of cataract surgery bilat History of colon resection 8 inches > 2001 History of colonoscopy History of hysterectomy History of lung surgery 1993 > RUL > due to cancer > no chemo/radiation History of right shoulder replacement reverse History of spinal surgery Hx of cholecystectomy Hx of exploratory thoracotomy Family History Aunt Diabetes Other Abdominal aortic aneurysm Stroke Social History Smoking Status: Former smoker Tobacco Type: Cigarettes Second Hand Exposure: No; Hx Alcohol Use: No Hx Substance Use: No Preferred Language: Macedonian Communication Ability: Effective Visual Impairment: Limited Hearing Ability: Hard of Hearing Live Games Dealer Required: No Beliefs That Will Affect Care: None marital status: Current Living Situation: Spouse How many Children do You have: 1 Feels Safe at Home: Yes Assistive Devices: Cane and Walker Review of Systems Review of Systems: All systems reviewed & are unremarkable except as noted in HPI & below Cardiovascular: Additional Comments: Had recently been feeling like her heart was "working overtime ". Physical Exam Physical Exam: Temp Pulse Resp BP Pulse Ox O2 Del Method 36.4 C L 69 18 110/54 L 98 09/23/21 07:19 09/23/21 15:36 09/23/21 15:36 09/23/21 15:36 09/23/21 15:36 09/23/21 15:36 Constitutional: + thin (Exhausted in appearance) Respiratory: normal respiratory effort, lungs clear to auscultation Cardiovascular: RRR, no murmur, no edema Gastrointestinal (Abdomen): normal bowel sounds, soft, nontender, no hepatosplenomegaly Neurologic: No focal deficits Results & Data ([facility]) Laboratory Results EKG performed 09/23/21 at 7:25 AM reveals sinus tachycardia 113 bpm with chronic left bundle branch block, and T wave inversions in the lateral leads I and aVL that are slightly more prominent than her usual baseline. Repeat tracing at 12:04 PM revealed normal sinus rhythm at 100 bpm with left bundle branch block, previously noted repolarization changes are back to the previous baseline. Diagnostic Findings Cardiac Enzymes 09/23/21 09/23/21 09/23/21 Range/Units 07:24 09:44 12:05 AST 13 (13-39) U/L Troponin I High Sens 20.0 H D 38.3 H D 41.4 H (0-14) pg/ml CBC 09/23/21 Range/Units 07:24 WBC 5.95 (4.8-10.8) K/ul RBC 5.04 (3.93-5.22) M/uL Hgb 14.0 (12.0-16.0) g/dl Hct 42.5 (34.1-44.9) % Plt Count 287 (130-400) K/uL Neut # (Auto) 3.30 (1.4-6.5) K/uL Lymph # (Auto) 2.01 (1.2-3.4) K/uL [place] # (Auto) 0.51 (0.24-0.82) K/uL Eos # (Auto) 0.06 (0-0.50) K/uL Baso # (Auto) 0.05 (0-0.2) K/uL Comprehensive Metabolic Panel 09/23/21 Range/Units 07:24 Sodium 139 (136-145) mmol/L Potassium 3.7 (3.5-5.1) mmol/L Chloride 104 (98-107) mmol/L Carbon Dioxide 28 (21-32) mmol/L BUN 20 (6-23) mg/dl Creatinine 0.69 (0.6-1.2) mg/dl Glucose 101 H (70-99(Fasting)) mg/dl Calcium 9.6 (8.5-10.1) mg/dl AST 13 (13-39) U/L ALT 12 (7-52) U/L Alkaline Phosphatase 64 (34-104) U/L Total Protein 7.1 (6.0-8.3) gm/dl Albumin 4.1 (3.4-5.0) gm/dl Intake and Output 09/23/21 09/23/21 09/23/21 06:59 14:59 22:59 Intake Total 1000 / 1000 Balance 1000 / 1000 Intake: IV 1000 / 1000 Sodium Chloride 0.9% 1000ML 1, 1000 / 1000 000 ml @ 999 mls/hr IV .Q1H1M [facility] Rx#:[id number] Other: Weight 56.5 kg Weight Measurement Method Built in [facility] Patient Weight 09/24/21 06:[address] of the head negative for intracranial pathology, swelling noted area of her posterior scalp Chest x-ray, appropriate pacemaker placement, no acute findings CT angiogram of the chest performed 09/16/2021 revealed no pulmonary embolism, scattered subcentimeter pulmonary nodules, unchanged compared to previous
[2021-09-23] MEDS ORDERED: PANTOprazole 40 MG TAB PO STA (15:57)
--- NOTE | 2021-09-23 16:31 | Ultrasound Report ---
ULTRASOUND SOFT TISSUE HEAD AND NECK. CLINICAL HISTORY: thyroid nodule, abnormal TFT TECHNIQUE: Multiple real time sonographic images of the thyroid were obtained. Comparison: None available at the time of this dictation. FINDINGS: The right thyroid lobe measures 3.8 x 3.1 x 2.0 cm. The left thyroid lobe measures approxim ately 3.4 x 2.0 x 1.2 cm. The isthmus measures 4.0 cm. Multiple anechoic nodules are seen. In additi on, the following nodules are noted: #Nodule 1. LOCATION: Right thyroid mid lobe. Measurement: 0.7 x 0.5 x 0.6 cm. COMPOSITION: 1 point: Mixed cystic and solid. ECHOGENICITY: 1 point: Hyperechoic or isoechoic. SHAPE: 0 point: [id number]. MARGIN: 0 points: Smooth or Ill-defined. ECHOGENIC FOCI: 0 points: None or large comet-tail artifacts. Overall TI-RADS Score: 2, corresponding to TI-RADS category of 2/5. #Nodule 2. LOCATION: Left thyroid mid lobe. Measurement: 1.1 x 0.5 x 0.8 cm. COMPOSITION: 1 point: Mixed cystic and solid. ECHOGENICITY: 2 points: Hypoechoic. SHAPE: 0 point: [id number]. MARGIN: 0 points: Smooth or Ill-defined. ECHOGENIC FOCI: 0 points: None or large comet-tail artifacts. Overall TI-RADS Score: 3, corresponding to TI-RADS category of 3/5. IMPRESSION: Multiple thyroid nodules are seen which do not require follow-up by ACR criteria. 0 points = TR 1, benign 2 points= TR 2, not suspicious 3 points= TR 3, mildly suspicious. > 1.5 cm- follow year 1, 3, 5 years. > 2.5 cm- FNA 4-6 points= TR 4, moderately suspicious. > 1 cm- follow year 1, 2, 3, 5 years. >1.5 cm- FNA 7 or more points= TR 5, highly suspicious. > 0.5 cm- follow yearly x 5 years. > 1 cm- FNA ACT 112: Negative or not required by law. Electronically signed by: Zach Christy M.D. 09/23/2021 4:28 PM
[2021-09-23] MEDS: AMIODARONE 200 MG TAB PO SCH (16:38)
[2021-09-23] MEDS: predniSONE 20 MG TAB PO SCH (17:41)
[2021-09-23 19:46] LABS: Appearance Urine Cloudy (Clear); Bacteria Urine Automated Negative (Negative); Blood Urine Negative (Negative); Color Urine Dark Yellow; Epithelial Cell Urine Auto >30 /lpf (0-5); Glucose Urine UA Negative (Negative); Ketones Urine 1+ (Negative); Leukocyte Esterase Urine 1+ (Negative); Nitrite Urine Negative (Negative); Protein Urine Trace (Negative); RBC Urine Automated 0-4 /hpf (0-4); Specific Gravity Urine 1.029 (1.000-1.030); Urobilinogen Urine Negative (Negative); pH Urine 5.5 (4.5-7.5)
[2021-09-23 20:04] LABS: Bilirubin Urine 1+ (Negative)
[2021-09-23 20:08] LABS: Amphetamines+Metham, Urine Neg (Neg); Barbiturates, Urine Neg (Neg); Benzodiazepine, Urine Pos (Neg); Cocaine, Urine Neg (Neg); MDMA (Ecstacy), Urine Neg (Neg); Methadone, Urine Neg (Neg); Opiate, Urine Neg (Neg); Phencyclidine, Urine Neg (Neg)
[2021-09-23 20:17] LABS: Cast Urine Automated 0 /lpf (0-5); Mucus Urine Present (None Prsent)
[2021-09-23] MEDS: METOPROLOL TARTRATE 50 MG TAB PO SCH (20:55)
[2021-09-23] MEDS ORDERED: MIRTAZAPINE TAB 15 MG TAB PO SCH (21:00)
[2021-09-23] MEDS ORDERED: MELATONIN 3 MG TAB PO SCH (21:00)
[2021-09-23] MEDS: APIXABAN 2.5 MG TAB PO SCH (21:04)
[2021-09-23] MEDS: methIMAzole 5 MG TABLET PO SCH (21:04)
--- NOTE | 2021-09-24 05:47 | Electrocardiogram Report ---
Test Reason : Blood Pressure : / mmHG Vent. Rate : 113 BPM Atrial Rate : 113 BPM P-R Int : 148 ms QRS Dur : 122 ms QT Int : 352 ms P-R-T Axes : 077 -52 098 degrees QTc Int : 482 ms Sinus tachycardia Possible Left atrial enlargement Left axis deviation Left bundle branch block Abnormal ECG When compared with ECG of 15-SEP-2021 19:44, No significant change Confirmed by Woodrow Berrios ([id number]) on 09/24/2021 5:46:29 AM Referred By: REFERRED SELF Confirmed By:Woodrow Berrios
--- NOTE | 2021-09-24 06:01 | Electrocardiogram Report ---
Test Reason : Blood Pressure : / mmHG Vent. Rate : 100 BPM Atrial Rate : 100 BPM P-R Int : 152 ms QRS Dur : 134 ms QT Int : 390 ms P-R-T Axes : 074 -49 097 degrees QTc Int : 503 ms Normal sinus rhythm Possible Left atrial enlargement Left axis deviation Left bundle branch block Abnormal ECG When compared with ECG of 23-SEP-2021 07:25, No significant change Confirmed by Woodrow Berrios ([id number]) on 09/24/2021 6:01:42 AM Referred By: REFERRED SELF Confirmed By:Woodrow Berrios
[2021-09-24] MEDS: AMIODARONE 200 MG TAB PO SCH (08:12)
[2021-09-24] MEDS: methIMAzole 5 MG TABLET PO SCH ×2 (08:13→13:46)
[2021-09-24] MEDS: METOPROLOL TARTRATE 50 MG TAB PO SCH (08:13)
[2021-09-24] MEDS: predniSONE 20 MG TAB PO SCH (08:13)
[2021-09-24] MEDS: APIXABAN 2.5 MG TAB PO SCH (08:13)
[2021-09-24 08:35] LABS: Hematocrit (blood only) 37.4 % (34.1-44.9); Hemoglobin 12.3 g/dl (12.0-16.0); Mean Corpuscular Hemoglobin 27.6 pg (25.0-34.0); Mean Corpuscular Hgb Conc 32.9 g/dL (32.0-36.0); Mean Platelet Volume 9.7 fL (9.4-12.3); Platelet Count 266 K/uL (130-400); Red Blood Count 4.45 M/uL (3.93-5.22); White Blood Count 4.57 K/ul (4.8-10.8)
[2021-09-24] MEDS ORDERED: lisinopril 5 MG TAB PO SCH (09:00)
[2021-09-24] MEDS ORDERED: ATENOLOL 25 MG TABLET PO SCH (09:00)
[2021-09-24 09:08] LABS: Albumin Level 3.5 gm/dl (3.4-5.0); BUN Creatinine Ratio 41.9 (10-20); Bilirubin Direct 0.1 mg/dl (0-0.2); Calcium 9.1 mg/dl (8.5-10.1); Creatinine Clr Calc Pharmacy 53.1 ml/min; Est GFR (African American) 92.7 ml/min; Est GFR (Non-African American) 79.9 ml/min; Potassium 4.6 mmol/L (3.5-5.1); Total Protein 6.1 gm/dl (6.0-8.3); Troponin I High Sensitivity 15.2 pg/ml (0-14)
--- NOTE | 2021-09-24 10:36 | Hospitalist Progress Note ---
Date of Service September 24, 2021 Assessment & Plan (1) Syncope: Plan: - Unwitnessed fall with ?syncopal episode this morning - does not remember the details. - No fracture or acute abnormality in CT head and cervical spine. - likely due to underlying hyperthyroidism with FT4 5.2, anxiety, arrhythmia - Less concern for PE as she is on eliquis. - monitor in tele - PT/OT eval (2) Hyperthyroidism: Plan: - New diagnosis - Not in thyroid storm or hyperthyroid crisis. - No thyroid tenderness. - Prior TSH normal but downtrending, no prior FT4. - on admission TSH <0.01, fT4 5.2, 1.6 cm right thyroid nodule --> ?hot nodule. - Will check T3 and thyroid ultrasound as well as TSI, TRAb. - continue amiodarone per Cardiology at lower dose of 100mg daily - Her prior symptoms which were attributed to anxiety are likely from hyperthyroidism. - continue on atenolol 25 mg daily in lieu of Lopressor and uptitrate as needed. - continue on methimazole 10mg TID per Endocrinology - continue on prednisone 20mg daily per endo - Patient to follow up with Dr. Lozano in his office - repeat TFTs in 3 weeks (3) Elevated troponin: Plan: - Trop mildly elevated - now trended down - ECG with no acute ischemic changes. - consult cardio - patient is well known to them - Recently had echo during recent admission. (4) Anxiety: Plan: - hyperthyroidism likely contributing. - Had an anxiety episode in ED, reassured and xanax given. - Will monitor. - currently not anxious (5) Paroxysmal atrial fibrillation: Plan: - in NSR. - lopressor changed to atenolol as above. - continue eliquis. - monitor on tele. (6) (HFpEF) heart failure with preserved ejection fraction: Plan: - TTE from 08/2021 with EF 60%, G1DD - not in exacerbation - continue home medications Plan DVT ppx- eliquis Dispo- PCU tele DNR/DNI- confirmed at bedside Izaiah Vallejo MD [facility] Medicine Admission and Anticipated Discharge Date Admission Date: September 23, 2021 Subjective The patient is an 89 year old woman with pmh GERD, h/o lung cancer s/p RUL resection (1993), HLD, HTN, pAFib with PPM, TIA, HFpEF (EF 60%, G1DD in 08/2021) who presented after a fall and potential syncopal episode. She was found to have undetectable TSH and elated FT4 up to 5.2. Mildy elevated trop that down trended, ECG without ischemic changes. CTH and neck unremarkable. Started on BB and methimazole in conjunction with Endocrine, to follow up in their office and repeat TFTs in 3 weeks. The patient feels much better than yesterday. Denies chest pain, shortness of breath, n/v/d, palpitations, light headedness. Got up to go to the bathroom today and felt well, although she does feel like she "needs to get my strength back." Review of Systems Review of Systems: All systems reviewed & are unremarkable except as noted in Subjective Physical Exam Physical Exam: General: Lying in bed, NAD, on room air HEENT: EOMI, VIRGIL, MMM. No neck mass was felt. Chest: Clear breath sounds bilaterally, no wheezes or crackles CVS: RRR, normal heart sounds, no murmur Abdomen: Soft, non tender, not distended, normal bowel sounds Neuro: Awake, alert, oriented, conversing well, non focal Extremities: No edema Psych: calm, cooperative. Euthymic Results & Data Results & Data ([facility]) Vital Signs (Past 12 Hours) Vital Signs Temp Pulse Pulse Resp BP Pulse Ox O2 Del Method 09/24/21 07:30 65 09/24/21 07:24 36.3 C L 82 18 106/64 95 Room Air 09/24/21 02:43 36.5 C 61 18 103/54 L 94 Room Air 09/23/21 23:22 36.9 C 69 18 95/56 L 95 Room Air Laboratory Results Short CBC 09/24/21 Range/Units 07:45 WBC 4.57 L (4.8-10.8) K/ul Hgb 12.3 (12.0-16.0) g/dl Hct 37.4 (34.1-44.9) % Plt Count 266 (130-400) K/uL BMP 09/24/21 07:45 Sodium 138 Potassium 4.6 D Chloride 106 Carbon Dioxide 25 BUN 26 H Creatinine 0.62 Glucose 119 H Calcium 9.1 Liver Function 09/24/21 Range/Units 07:45 Total Bilirubin 1.0 (0.2-1.0) mg/dl Direct Bilirubin 0.1 (0-0.2) mg/dl AST 11 L (13-39) U/L ALT 10 (7-52) U/L Alkaline Phosphatase 53 (34-104) U/L Albumin 3.5 (3.4-5.0) gm/dl Urine 09/23/21 Range/Units 19:10 Urine Color Dark Yellow Urine Appearance Cloudy A (Clear) Urine pH 5.5 (4.5-7.5) Ur Specific [place] 1.029 (1.000-1.030) Urine Protein Trace H (Negative) Urine Glucose (UA) Negative (Negative) Medications Administered Current Inpatient Medications Amiodarone HCl (Amiodarone 200 Mg Tab) 100 mg PO QAM [facility] Stop: 10/23/21 15:59 Last Admin: 09/24/21 08:12 Dose: 100 mg Apixaban (Apixaban 2.5 Mg Tab) 2.5 mg PO BID [facility] Stop: 10/23/21 20:59 Last Admin: 09/24/21 08:13 Dose: 2.5 mg Lisinopril (Lisinopril 5 Mg Tab) 5 mg PO QAM [facility] Stop: 10/24/21 08:59 Last Admin: 09/24/21 08:13 Dose: 5 mg Melatonin (Melatonin 3 Mg Tab) 6 mg PO HS [facility] Stop: 10/23/21 20:59 Last Admin: 09/23/21 21:03 Dose: 6 mg Methimazole (Methimazole 5 Mg Tablet) 10 mg PO TID [facility] Stop: 10/23/21 20:59 Last Admin: 09/24/21 08:13 Dose: 10 mg Metoprolol Tartrate (Metoprolol Tartrate 50 Mg Tab) 50 mg PO BID [facility] Stop: 10/23/21 20:59 Last Admin: 09/24/21 08:13 Dose: 50 mg Mirtazapine (Mirtazapine Tab 15 Mg Tab) 15 mg PO HS [facility] Stop: 10/23/21 20:59 Last Admin: 09/23/21 21:04 Dose: 15 mg Prednisone (Prednisone 20 Mg Tab) 20 mg PO DAILY [facility] Stop: 10/23/21 16:44 Last Admin: 09/24/21 08:13 Dose: 20 mg
--- NOTE | 2021-09-24 14:53 | Cardiology Progress Note ---
Date of Service September 24, 2021 Assessment & Plan (1) Syncope: (2) Elevated troponin: (3) Hyperthyroidism: (4) Paroxysmal atrial fibrillation: Plan: As noted at the time of recent inpatient consultation last week, the patient's has been having difficulties with illness, and they are codependent with regards to caring for each other. Pacemaker interrogation repeated today 09/24/2021 with recent episodes of paroxysmal atrial fibrillation, and episode certainly correlates with her reported symptoms of feeling like her heart was racing yesterday 09/23/2021 at 4 AM and around the time of her fall/loss of consciousness episode in the bathroom while at home. As previously noted, patient has a longstanding history of highly symptomatic atrial fibrillation episodes. In 2020 she was followed by the undersigned while hospitalized, and transitioned off of verapamil, amiodarone was initiated, along with a dual-chamber [employer]onic pacemaker for heart rate support. She is now found to have hyperthyroidism, new compared to 3 months ago. I have concerns with regards to discontinuing the amiodarone. In terms of rhythm control strategy, she has a chronic left bundle branch block, and due to issues with following her QT interval, this makes her less than ideal candidate for sotalol which I think would not be as effective as the amiodarone anyway. Her baseline left bundle branch block also precludes the addition of dofetilide (Tikosyn). As noted, she had previously been on verapamil with resultant ongoing atrial fibrillation then. Her systolic blood pressure has been in the 90s to 100s, not allowing much room for titration of her metoprolol. At present, I recommend proceeding with ongoing treatment with amiodarone 100 mg daily. Agree with addition of methimazole, and if endocrinology believes prednisone indicated we will cautiously proceed with it as well. Transition from metoprolol to tartrate 50 mg twice daily to metoprolol succinate 50 mg twice daily. Add digoxin 0.125 mg by mouth daily at 4 PM for further rate/rhythm control. In her case, I believe that digoxin is a reasonable choice as it will not affect lowering her blood pressure, and she does have a pacemaker in place which has been proven to be functioning appropriately and will act as a safety net against bradycardia. Continue Eliquis for stroke prophylaxis, dose of 2.5 mg twice daily is appropriate given age over 80 years, weight less than 60 kg. Summary: Eliquis 2.5 mg twice daily Metoprolol succinate 50 mg twice daily Amiodarone 100 mg daily Digoxin 0.125 mg daily -Patient stable from my standpoint for discharge. Admission and Anticipated Discharge Date Admission Date: September 23, 2021 Subjective Patient seen in cardiology follow-up. She is much more bright and rested today. She is sitting in the bedside chair, and is well rested. Telemetry reveals sinus rhythm with left bundle branch block in the 60s to 70s. Denies any chest pressure or heaviness. Physical Exam Physical Exam: Temp Pulse Resp BP Pulse Ox O2 Del Method 36.6 C 70 19 106/53 L 97 09/24/21 14:54 09/24/21 14:54 09/24/21 14:54 09/24/21 14:54 09/24/21 14:54 09/24/21 11:27 Constitutional: WD/WN, vitals as above Respiratory: normal respiratory effort, lungs clear to auscultation Cardiovascular: RRR, no murmur, no edema Chest (Breasts): Additional Comments: Left infraclavicular pacemaker pocket clean dry and intact Neurologic: PERRL, EOMI, accommodation nl, no face palsy, no dysarthria Results & Data ([facility]) Vital Signs (Past 12 Hours) Vital Signs Temp Pulse Pulse Resp BP Pulse Ox O2 Del Method 09/24/21 11:27 36.6 C 70 19 106/53 L 97 Room Air 09/24/21 07:30 65 09/24/21 07:24 36.3 C L 82 18 106/64 95 Room Air
[2021-09-24] MEDS ORDERED: DIGOXIN 0.125 MG TAB PO ONE (14:54)
--- NOTE | 2021-09-24 16:47 | Discharge Summary ---
Date of Service September 24, 2021 Admission HPI Per Admitting Provider 89 year old female who presented to the ED from home with fall today. She does not remember the details of the fall. States she went to the bathroom and woke up in the floor this morning. Called her for help and was brought to the ED via EMS. Vitals stable except for sinus tachycardia. Workup showed abnormal TFTs (hyperthyroidism) with right thyroid nodule and mildly elevated troponin but no fracture or other acute abnormalities. Hospitalist service was consulted for further management. I saw and examined the patient at bedside. She complained of chest tightness and inability to breathe as I was interviewing her. Stat EKG did not show any acute ischemic changes. Stat trop was sent. SL nitro was given which did not seem to help. She was still complaining of not being able to breathe and chest discomfort but her vitals including saturation and respiratory rate was fine throughout and her chest exam was clear. She was reassured, however she kept worrying about her and wanted me to call hime to give an update. Small dose of xanax and beta shawn were ordered to ameliorate her symptoms. States she has not taken any of her morning medications today. Does not smoke or drink alcohol. Denies any fever, chills, nausea, vomiting, abd pain, cough, sore throat, dysphagia, dysphonia. Has some weight loss but denies any heat intolerance or diarrhea. Struggles with constipation. Admission Exam Per Admitting Provider General: Lying in bed, anxious, not in acute distress, on room air HEENT: EOMI, VIRGIL, MMM. No neck mass was felt. Chest: Clear breath sounds bilaterally, no wheezes or crackles CVS: Tachycardic, normal heart sounds, no murmur Abdomen: Soft, non tender, not distended, normal bowel sounds Neuro: Awake, alert, oriented, conversing well, non focal Extremities: No edema Psych: Anxious Principal Diagnosis hyperthyroidism Discharge Exam General: Lying in bed, NAD, on room air HEENT: EOMI, VIRGIL, MMM. No neck mass was felt. Chest: Clear breath sounds bilaterally, no wheezes or crackles CVS: RRR, normal heart sounds, no murmur Abdomen: Soft, non tender, not distended, normal bowel sounds Neuro: Awake, alert, oriented, conversing well, non focal Extremities: No edema Psych: calm, cooperative. Euthymic Discharge Data Allergies Allergy/AdvReac Type Severity Reaction Status Date / Time adhesive Allergy Unknown RASH, Verified 09/15/21 22:13 REDDNESS AT SITE codeine Allergy Unknown RASH, Verified 09/15/21 22:13 SEVERE ITCHING metronidazole Allergy Unknown SEVERE Verified 09/15/21 22:13 YEAST/VAGINAL INFX morphine Allergy Unknown IRREGULAR Verified 09/15/21 22:13 HEART RATE, EXTREME SEDATION propoxyphene AdvReac Unknown A-FIB Verified 09/15/21 22:13 Consultations 09/23/21 11:18 ED Decision to Admit Stat 09/23/21 14:00 Consult Cardiology Routine Ordered Studies 09/23/21 07:45 CT cervical spine wo con Stat CT head/brain wo con Stat 09/23/21 11:14 US thyroid Routine Hospital Course (1) Syncope: - Unwitnessed fall with ?syncopal episode this morning - does not remember the details. - No fracture or acute abnormality in CT head and cervical spine. - likely due to underlying hyperthyroidism with FT4 5.2, anxiety, arrhythmia - Less concern for PE as she is on eliquis. - monitor in tele (2) Hyperthyroidism: - New diagnosis - Not in thyroid storm or hyperthyroid crisis. - No thyroid tenderness. - Prior TSH normal but downtrending, no prior FT4. - on admission TSH <0.01, fT4 5.2, 1.6 cm right thyroid nodule --> ?hot nodule. - Will check T3 and thyroid ultrasound as well as TSI, TRAb. - continue amiodarone per Cardiology at lower dose of 100mg daily - Her prior symptoms which were attributed to anxiety are likely from hyperthyroidism. - Metoprolol tartrate 50mg BID changed to Metoprolol Succinate 50mg BID, per Cardiology - continue on methimazole 10mg TID per Endocrinology - continue on prednisone 20mg daily per endo - Patient to follow up with Dr. Lozano in his office - repeat TFTs in 3 weeks (3) Elevated troponin: - Trop mildly elevated - now trended down - ECG with no acute ischemic changes. - consult cardio - patient is well known to them - Recently had echo during recent admission. (4) Anxiety: - hyperthyroidism likely contributing. - Had an anxiety episode in ED, reassured and xanax given. - Will monitor. - currently not anxious (5) Paroxysmal atrial fibrillation: - in NSR. - metoprolol succinate 50mg BID per Cardiology - continue amiodarone 100mg daily per Cardiology - started on digoxin 0.125mg at 4pm daily per Cardiology due to periods of afib RVR on PPM interrogation - continue Eliquis. - monitor on tele. (6) (HFpEF) heart failure with preserved ejection fraction: - TTE from 08/2021 with EF 60%, G1DD - not in exacerbation - continue home medications Plan DVT ppx- eliquis Dispo- PCU tele - stable for discharge with endocrine and Cardiology follow up DNR/DNI- confirmed at bedside Izaiah Vallejo MD [facility] Medicine Total Time Total Time Spent Total Time Spent (In Minutes): 29 Total Time Includes: Examination of the Patient, Discharge Planning, Medication Reconciliation and Communication With Other Providers Discharge Plan Discharge Items Patient Disposition: Home - Self-Care Reason For Visit: fall, hyperthyroidism Discharge Diagnosis: hyperthyroidism Activity: Resume your previous activity Non-emergency contact: Primary Care Provider, Specialist and Head Sugar Reprocess Operator Call non-emergency contact if: you have any medication questions and your symptoms worsen Follow-up/Referrals: Jose Lozano MD [Physician] - ([facility] [place] will call you with an appointment for hospital follow up. ADDRESS [facility] [place] [id number] ) Bao Walsh DO [Head Sugar Reprocess Operator] - Chung Arrington DO [Primary Care Provider] - (Date & Time 10/01/2021 11:20 AM Provider Chung Arrington DO Department Family Practice [facility] ) Diet: Heart Healthy Addtl Attending Provider Instructions: You were admitted after a fall. You were found to have hyperthyroidism on your lab work. This is a likely explaination for your anxiety and heart palpitations that you have been feeling. You were started on methimazole 10mg 3x/day and prednisone 20mg daily, and you should continue these medications until you follow up with Dr. Lozano, an hadoop architect. His office will reach out to you for an appointment. Dr. Walsh changed your metoprolol to Toprol XL 50mg 2x/day and added a medication called Digoxin 0.125mg at 4pm daily. You should also continue to follow up with your primary care doctor and your Head Sugar Reprocess Operator. Pending Studies at Discharge: Yes Studies:: thyroid blood tests Stand-Alone Forms: My [facility], Smoking Cessation Medications and DC Order Prescriptions: New prednisone 20 mg Tablet 20 mg PO DAILY Qty: 30 0RF digoxin [Digitek] 125 mcg (0.125 mg) Tablet 125 mcg PO DAILY@1600 Qty: 30 0RF metoprolol succinate 50 mg tablet extended release 24 hr 50 mg PO BID Qty: 60 0RF methimazole 10 mg tablet 10 mg PO TID Qty: 90 0RF Continued melatonin 10 mg tablet 10 mg PO HS PRN (Reason: Sleep) lisinopril 5 mg Tablet 5 mg PO QAM magnesium oxide 400 mg magnesium Tablet 400 mg PO QAM docusate sodium [Stool Softener] 100 mg Capsule 100 mg PO HS PRN (Reason: Constipation) omega [id number]-fish oil [Fish Oil] 1,200 (144-216) mg Capsule 2 cap PO BID amiodarone 200 mg Tablet 100 mg PO QAM pantoprazole 40 mg Tablet,Delayed Release (Dr/Ec) 40 mg PO QAM Glucosamine Chondroitin 550-30-1 mg Capsule 2 cap PO QAM Eliquis 2.5 mg Tablet 2.5 mg PO BID magnesium hydroxide [Milk of Magnesia] 400 mg/5 mL Suspension 15 ml PO DAILY PRN (Reason: Constipation) furosemide [Lasix] 20 mg tablet 20 mg PO 2XWK PRN (Reason: sweling and weight gain) Qty: 30 0RF melatonin 3 mg Tablet 6 mg PO HS Qty: 30 0RF mirtazapine 15 mg Tablet 15 mg PO HS Qty: 30 0RF hydroxyzine HCl 10 mg Tablet 10 mg PO Q6 PRN (Reason: anxiety) Qty: 20 0RF Discontinued metoprolol tartrate 25 mg Tablet 50 mg PO BID Qty: 60 0RF Discharge Orders: Discharge Order (Routine); Ordered 09/24/21 Ordered By: Izaiah Vallejo Admission Data Admit Date/Time: 09/23/21 11:23 Attending Provider: Izaiah Vallejo Admit Provider: Pablo Velázquez Primary Care Provider: Chung Arrington Other Providers: Bao Walsh ; Pablo Velázquez Other Interventions: Discharge Summary Assessment (RN) Last Done: 09/24/21 14:54
[2021-09-25] MEDS ORDERED: DIGOXIN 0.125 MG TAB PO SCH (16:00)
[2021-09-26 01:22] LABS: 7-Aminoclonaz, Confirm NEGATIVE ng/mL (<25); Hydro-Alp Ur, GC/MS 140 ng/mL (<25); Hydroxyethylflurazepam, Conf NEGATIVE ng/mL (<50); Hydroxymidazolam Ur, GC/MS NEGATIVE ng/mL (<50); Hydroxytriazolam NEGATIVE ng/mL (<50); Lorazepam, Ur GC/MS NEGATIVE ng/mL (<50); Nordiazepam, Confirm NEGATIVE ng/mL (<50); Oxazepam Ur, GC/MS NEGATIVE ng/mL (<50); Temazepam, Confirm NEGATIVE ng/mL (<50)
[2021-09-29 16:51] LABS: Microsomal Ab <1 IU/mL (<9); TSI <89 % baseline (<140); Thyroglobulin Antibodies <1 IU/mL (< or = 1)
== END 2021-09-24 18:14 | disposition home or self-care (01) ==
LOC: 2S 07:14 → ED 07:14 → SUATTDRO 11:23 → 2S 15:07

== ENCOUNTER 2021-09-25 16:17 | Inpatient (IN) ==
[2021-09-25] MEDS ORDERED: SODIUM CHLORIDE 0.9% 500 ML IV STA (16:30)
[2021-09-25 17:26] LABS: Basophils # (auto) 0.04 K/uL (0-0.2); Basophils % (auto) 0.5 %; Eosinophils # (auto) 0.06 K/uL (0-0.50); Eosinophils % (auto) 0.7 %; Hematocrit (blood only) 38.4 % (34.1-44.9); Hemoglobin 12.8 g/dl (12.0-16.0); Immature Granulocytes # (auto) 0.03 K/uL (0.00-0.02); Immature Granulocytes % (auto) 0.3 %; Lymphocytes # (auto) 2.83 K/uL (1.2-3.4); Lymphocytes % (auto) 32.7 %; Mean Corpuscular Hgb Conc 33.3 g/dL (32.0-36.0); Mean Platelet Volume 9.4 fL (9.4-12.3); Monocytes # (auto) 0.65 K/uL (0.24-0.82); Monocytes % (auto) 7.5 %; Neutrophils # (auto) 5.04 K/uL (1.4-6.5); Neutrophils % (auto) 58.3 %; Platelet Count 307 K/uL (130-400); RDW Coefficient of Variation 13.2 % (11.5-14.5); RDW Standard Deviation 40.9 fL (36.4-46.3); Red Blood Count 4.57 M/uL (3.93-5.22); White Blood Count 8.65 K/ul (4.8-10.8)
--- NOTE | 2021-09-25 17:28 | XRay Report ---
XR chest 1V portable HISTORY: 89 years-old Female Dyspnea acute shortness of breath COMPARISON: Chest radiograph 09/23/2021, CTA chest 09/15/2021 TECHNIQUE: AP view of the chest FINDINGS: Cardiac silhouette is enlarged. Surgical clips project over the right hilum. Left subclavian pacer. A therosclerosis of the thoracic aorta. Unchanged 9 mm nodule of the right lung apex. No pneumothorax, pleural effusion, airspace consolidation or overt pulmonary edema. Mild chronic interstitial coarseni ng. Unchanged blunting of the costophrenic angles with mild hyperinflation. Degenerative changes of t he spine and left shoulder. Reverse right shoulder total joint arthroplasty. IMPRESSION: 1. No acute process of the chest. 2. Unchanged 9 mm nodule of the right upper lung. ACT 112: Negative or not required by law. The above report was generated using voice recognition software. It may contain grammatical, syntax o r spelling errors. Electronically signed by: Chacho Schrader M.D. 09/25/2021 5:27 PM
[2021-09-25 17:43] LABS: Partial Thromboplastin Ratio 0.9; Partial Thromboplastin Time 25.9 Seconds (21.0-31.0); Prothrombin Time 10.5 Seconds (9.0-12.0)
[2021-09-25 18:00] LABS: Alanine Aminotransferase 11 U/L (7-52); Albumin Globulin Ratio 1.4 (0.9-2); Albumin Level 3.9 gm/dl (3.4-5.0); Alkaline Phosphatase 58 U/L (34-104); Anion Gap 8 (3-11); Aspartate Aminotransferase 13 U/L (13-39); BUN Creatinine Ratio 34.9 (10-20); Bilirubin,Total 1.1 mg/dl (0.2-1.0); Blood Urea Nitrogen 29 mg/dl (6-23); Calcium 9.6 mg/dl (8.5-10.1); Carbon Dioxide 26 mmol/L (21-32); Chloride 105 mmol/L (98-107); Est GFR (African American) 72.5 ml/min; Est GFR (Non-African American) 62.5 ml/min; Globulin 2.8 gm/dl (2.5-4.0); Glucose 98 mg/dl (70-99(Fasting)); Sodium 139 mmol/L (136-145); Total Protein 6.7 gm/dl (6.0-8.3)
[2021-09-25 18:08] LABS: Troponin I High Sensitivity 178.3 pg/ml (0-14)
[2021-09-25] MEDS ORDERED: ACETAMINOPHEN 1000 MG/100 ML IV IV STA (18:09)
[2021-09-25] MEDS ORDERED: SODIUM CHLORIDE 0.9% 1000ML 500 ML IV ONE (18:09)
[2021-09-25 18:10] LABS: Thyroid Stimulating Hormone < 0.010 uIu/ml (0.300-4.500)
[2021-09-25 18:50] LABS: T4 Free Thyroxine 5.13 ng/dl (0.61-1.60)
--- NOTE | 2021-09-25 18:50 | Emergency Department Note ---
Impression & Plan Weakness, Elevated troponin, Precordial chest pain, SOB (shortness of breath), Atrial fibrillation ED Provider Note NAME: FAHAD RICH AGE: 89 SEX: F : 1930 ARRIVES VIA: Walk-In INFORMANT: [Patient][daughter] ED PROVIDER(S): [Lars Kinsey MD] CHIEF COMPLAINT: Shortness of breath, weakness HISTORY OF PRESENT ILLNESS: The patient is an 89-year-old female presents to the ER with shortness of breath, weakness, fatigue and some chest pain. The patient has not felt well for over a week. She just left the hospital yesterday. The patient was too weak today to care for herself or even stand. She was brought to the hospital by her family, they are hoping for placement/rehab. The patient does complain of some mild chest discomfort although, its not new. Its been present now for at least a week. She has some occasional shortness of breath. She feels fatigued. She feels washed out and exhausted. The patient does have a history of A. fib, she is on Eliquis. She has never had cardiac stenting or coronary bypass surgery. REVIEW OF SYSTEMS: See HPI for pertinent positives and negatives. A total of ten systems were reviewed and were otherwise negative. PMHx/PSHx: See Below SOCIAL HISTORY: See Below. PHYSICAL EXAM: GENERAL: Patient is in no acute distress. HEENT: No acute trauma, normocephalic atraumatic, mucous membranes dry, no nasal congestion, no scleral icterus. NECK: No stridor, no adenopathy, no meningismus, trachea is midline. LUNGS: Clear to auscultation bilaterally, no wheeze, no rhonchi, breath sounds equal. HEART: Irregular rhythm, normal rate, no obvious murmur. ABDOMEN: Soft, nontender, bowel sounds positive, no peritonitis. EXTREMITIES: No cyanosis, mild bilateral pedal edema, full range of motion of all the joints without pain or difficulty, no signs for acute trauma. NEUROLOGIC: Oriented x 3, no acute motor or sensory deficits, no focal weakness. SKIN: No rash, no jaundice, no diaphoresis. Pale. DIFFERENTIAL DIAGNOSIS: Infection, dehydration, COVID-19, dysrhythmia, metabolic abnormality, hypo/hyperglycemia, electrolyte disturbance, anemia, hypoxia, cardiac sources, intracerebral event, toxicologic issues, stroke, TIA, as well as other pathologies. EMERGENCY DEPARTMENT COURSE/PROCEDURES: ECG: Indication was weakness and shortness of breath. The ECG shows atrial fibrillation with a rate of 100. There is some nonspecific ST change. There is a left bundle branch block. No ST elevation. No PVCs. The QTc is 469. Compared to an ECG from 23 September 2021, A. fib is now present. Continuous Cardiac Monitoring: An order was placed for continuous cardiac monitoring. The monitor shows a rate of 86 with atrial fibrillation. Critical Care Note: I have personally spent 39 minutes of critical care time in the direct management of this patient. This includes bedside care, interpretation of diagnostic studies, and testing, discussion with consultants, patient, and family members, and other required patient management activities. This 39 minutes is in excess of all separately billable procedures. MEDICAL DECISION MAKING: There is no leukocytosis or concerning anemia. There is a normal platelet count. No coagulopathy. No renal failure or significant electrolyte abnormality. No concerning liver enzyme elevation. TSH is low, the T4 is elevated at 5.13. Digoxin level is not toxic. COVID test returned negative. Chest x-ray did not show mediastinal widening, pneumonia or CHF. ECG shows atrial fibrillation, no acute ischemic change. Cardiac troponin is elevated at around 170, this is higher than her typical baseline troponin elevation. Repeat troponin testing about 2 hours later showed a decrease in the value-reassuring. On exam, the patient appeared dehydrated and weak. The patient presents with primarily, weakness. She was given a 500 cc saline bolus. She was given IV Tylenol for pain. I did call and speak with cardiology, Dr. Joseph. He did suggest the delta troponin. As the second troponin is less, no emergent cardiology intervention was felt warranted. No emergent catheterization. The patient is going to be treated medically. Her troponin can be followed. She is too weak to function at home. She appears dehydrated. She is going to require placement, at least temporarily, after this hospital stay. I spoke with the patient and to her daughter, I talked to case management. The on-call hospitalist was consulted. 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 Bay History of lung cancer 1993- s/p RUL lung resection History of trigger finger multiple to both hands Hyperlipidemia Hypertension Longstanding LBBB (left bundle branch block) Chronic per cardio records Pacemaker Placed Mar 16, 2020> [facility] > follows Dr. 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 Bay SOB (shortness of breath) TIA (transient ischemic attack) no further issues > 2017 > doesn't follow neuro Surgical History H/O section x1 H/O hemorrhoidectomy H/O ultrasound guided needle biopsy of lung History of cardiac cath 2010 - no obstructive CAD History of carpal tunnel release bilat History of cataract surgery bilat History of colon resection 8 inches > 2001 History of colonoscopy History of hysterectomy History of lung surgery 1993 > RUL > due to cancer > no chemo/radiation History of right shoulder replacement reverse History of spinal surgery Hx of cholecystectomy Hx of exploratory thoracotomy Family History Aunt Diabetes Other Abdominal aortic aneurysm Stroke Social History Smoking Status: Unknown if ever smoked Tobacco Type: Cigarettes Second Hand Exposure: No; Hx Alcohol Use: No Hx Substance Use: No Preferred Language: Turkmen Communication Ability: Effective Visual Impairment: Limited Hearing Ability: Hard of Hearing Certified Veterinary Technician Required: Yes Beliefs That Will Affect Care: None marital status: Current Living Situation: Spouse How many Children do You have: 2 Feels Safe at Home: Yes Assistive Devices: None Allergies Allergies Allergy/AdvReac Type Severity Reaction Status Date / Time adhesive Allergy Intermediate RASH, Verified 09/25/21 18:39 REDDNESS AT SITE codeine Allergy Intermediate RASH, Verified 09/25/21 18:39 SEVERE ITCHING metronidazole Allergy Intermediate SEVERE Verified 09/25/21 18:39 YEAST/VAGINAL INFX morphine AdvReac Severe IRREGULAR Verified 09/25/21 18:39 HEART RATE, EXTREME SEDATION propoxyphene AdvReac Severe A-FIB Verified 09/25/21 18:39 Home Meds Home Medications Medication Instructions Recorded Confirmed lisinopril 5 mg tablet 5 mg PO QAM 01/30/18 09/25/21 melatonin 10 mg tablet 10 mg PO HS PRN Sleep 10/26/18 09/25/21 magnesium oxide 400 mg PO QAM 12/31/19 09/25/21 docusate sodium 100 mg capsule 100 mg PO HS PRN Constipation 03/10/20 09/25/21 (Stool Softener) omega 8-piu-pdy-fish oil 1,200 mg 2 cap PO BID 03/10/20 09/25/21 (144 mg-216 mg) capsule (Fish Oil) amiodarone 200 mg tablet 100 mg PO QAM 05/03/20 09/25/21 apixaban 2.5 mg tablet (Eliquis) 2.5 mg PO BID 05/03/20 09/25/21 glucosamine sulf dipot 2 cap PO QAM 05/03/20 09/25/21 chlr,msm,chond 550 mg-C 30 mg-yennifer 1 mg capsule (Glucosamine Chondroitin) pantoprazole 40 mg tablet,delayed 40 mg PO QAM 05/03/20 09/25/21 release magnesium hydroxide 400 mg/5 mL 15 ml PO DAILY PRN Constipation 05/25/20 09/25/21 oral suspension (Milk of Magnesia) Previous Rx's Medication Instructions Recorded furosemide 20 mg tablet (Lasix) 20 mg PO 2XWK PRN sweling and 10/30/20 weight gain #30 tabs hydroxyzine HCl 10 mg tablet 10 mg PO Q6 PRN anxiety #20 tabs 09/06/21 melatonin 3 mg tablet 6 mg PO HS #30 tabs 09/06/21 mirtazapine 15 mg tablet 15 mg PO HS #30 tabs 09/06/21 digoxin 125 mcg (0.125 mg) tablet 125 mcg PO DAILY@1600 #30 tabs 09/24/21 (Digitek) methimazole 10 mg tablet 10 mg PO TID #90 tabs 09/24/21 metoprolol succinate 50 mg 50 mg PO BID #60 tabs 09/24/21 tablet,extended release 24 hr prednisone 20 mg tablet 20 mg PO DAILY #30 tabs 09/24/21 Results & Data (ED) Vital Signs Vital Signs - 24 hr 09/25/21 16:31 09/25/21 16:31 09/25/21 17:23 Temperature 36.6 C Temperature Source Oral Pulse Rate 104 H Respiratory Rate 17 Respiratory Effort / Characteristics Spontaneous Non-Labored Spontaneous Respiratory Depth Normal Normal Respiratory Pattern Regular Blood Pressure 95/58 L Blood Pressure Mean 70 Blood Pressure Position Sitting Pulse Oximetry 96 Oxygen Delivery Method Room Air Room Air Sepsis Recent Fever Within 48 Hours No Sepsis New/Unexplained Change in Mental Status No Sepsis Action Taken by Nursing Physician Notified Home Medications Current Medication List: was personally reviewed by me Laboratory Data Attestation: I reviewed the patient's lab results. Result diagrams: 09/25/21 17:19 09/25/21 17:19 Lab Results 09/25/21 09/25/21 09/25/21 Range/Units 17:19 17:19 17:19 WBC 8.65 (4.8-10.8) K/ul RBC 4.57 (3.93-5.22) M/uL Hgb 12.8 (12.0-16.0) g/dl Hct 38.4 (34.1-44.9) % MCV 84.0 (80.0-100.0) fL MCH 28.0 (25.0-34.0) pg MCHC 33.3 (32.0-36.0) g/dL RDW Std Deviation 40.9 (36.4-46.3) fL RDW Coeff of Coleman 13.2 (11.5-14.5) % Plt Count 307 (130-400) K/uL MPV 9.4 (9.4-12.3) fL Immature Gran % (Auto) 0.3 % Neut % (Auto) 58.3 % Lymph % (Auto) 32.7 % Hemphill % (Auto) 7.5 % Eos % (Auto) 0.7 % Baso % (Auto) 0.5 % Neut # (Auto) 5.04 (1.4-6.5) K/uL Lymph # (Auto) 2.83 (1.2-3.4) K/uL Hemphill # (Auto) 0.65 (0.24-0.82) K/uL Eos # (Auto) 0.06 (0-0.50) K/uL Baso # (Auto) 0.04 (0-0.2) K/uL Immature Gran # (Auto) 0.03 H (0.00-0.02) K/uL PT (9.0-12.0) Seconds INR (0.9-1.1) APTT (21.0-31.0) Seconds PTT Ratio Sodium (136-145) mmol/L Potassium (3.5-5.1) mmol/L Chloride (98-107) mmol/L Carbon Dioxide (21-32) mmol/L Anion Gap (3-11) BUN (6-23) mg/dl Creatinine (0.6-1.2) mg/dl Est Cr Clr Drug Dosing Est GFR ( Amer) ml/min Est GFR (Non-Af Amer) ml/min BUN/Creatinine Ratio (10-20) Glucose (70-99(Fasting)) mg/dl Calcium (8.5-10.1) mg/dl Magnesium (1.7-2.4) mg/dl Total Bilirubin (0.2-1.0) mg/dl AST (13-39) U/L ALT (7-52) U/L Alkaline Phosphatase (34-104) U/L Troponin I High Sens (0-14) pg/ml B-Natriuretic Peptide (0-100) pg/ml Total Protein (6.0-8.3) gm/dl Albumin (3.4-5.0) gm/dl Globulin (2.5-4.0) gm/dl Albumin/Globulin Ratio (0.9-2) TSH < 0.010 L (0.300-4.500) uIu/ml Free T4 5.13 H (0.61-1.60) ng/dl Digoxin 1.4 (0.8-2.0) ng/ml SARS-CoV-2, RNA, NAAT (NEGATIVE) 09/25/21 09/25/21 09/25/21 Range/Units 17:19 17:19 18:18 WBC (4.8-10.8) K/ul RBC (3.93-5.22) M/uL Hgb (12.0-16.0) g/dl Hct (34.1-44.9) % MCV (80.0-100.0) fL MCH (25.0-34.0) pg MCHC (32.0-36.0) g/dL RDW Std Deviation (36.4-46.3) fL RDW Coeff of Coleman (11.5-14.5) % Plt Count (130-400) K/uL MPV (9.4-12.3) fL Immature Gran % (Auto) % Neut % (Auto) % Lymph % (Auto) % Hemphill % (Auto) % Eos % (Auto) % Baso % (Auto) % Neut # (Auto) (1.4-6.5) K/uL Lymph # (Auto) (1.2-3.4) K/uL Hemphill # (Auto) (0.24-0.82) K/uL Eos # (Auto) (0-0.50) K/uL Baso # (Auto) (0-0.2) K/uL Immature Gran # (Auto) (0.00-0.02) K/uL PT 10.5 (9.0-12.0) Seconds INR 1.0 (0.9-1.1) APTT 25.9 (21.0-31.0) Seconds PTT Ratio 0.9 Sodium 139 (136-145) mmol/L Potassium 4.0 (3.5-5.1) mmol/L Chloride 105 (98-107) mmol/L Carbon Dioxide 26 (21-32) mmol/L Anion Gap 8 (3-11) BUN 29 H (6-23) mg/dl Creatinine 0.83 (0.6-1.2) mg/dl Est Cr Clr Drug Dosing Not Reportable Est GFR ( Amer) 72.5 ml/min Est GFR (Non-Af Amer) 62.5 ml/min BUN/Creatinine Ratio 34.9 H (10-20) Glucose 98 (70-99(Fasting)) mg/dl Calcium 9.6 (8.5-10.1) mg/dl Magnesium 2.0 (1.7-2.4) mg/dl Total Bilirubin 1.1 H (0.2-1.0) mg/dl AST 13 (13-39) U/L ALT 11 (7-52) U/L Alkaline Phosphatase 58 (34-104) U/L Troponin I High Sens 178.3 H* D (0-14) pg/ml B-Natriuretic Peptide 337 H (0-100) pg/ml Total Protein 6.7 (6.0-8.3) gm/dl Albumin 3.9 (3.4-5.0) gm/dl Globulin 2.8 (2.5-4.0) gm/dl Albumin/Globulin Ratio 1.4 (0.9-2) TSH (0.300-4.500) uIu/ml Free T4 (0.61-1.60) ng/dl Digoxin (0.8-2.0) ng/ml SARS-CoV-2, RNA, NAAT (NEGATIVE) 09/25/21 Range/Units 19:00 WBC (4.8-10.8) K/ul RBC (3.93-5.22) M/uL Hgb (12.0-16.0) g/dl Hct (34.1-44.9) % MCV (80.0-100.0) fL MCH (25.0-34.0) pg MCHC (32.0-36.0) g/dL RDW Std Deviation (36.4-46.3) fL RDW Coeff of Coleman (11.5-14.5) % Plt Count (130-400) K/uL MPV (9.4-12.3) fL Immature Gran % (Auto) % Neut % (Auto) % Lymph % (Auto) % Hemphill % (Auto) % Eos % (Auto) % Baso % (Auto) % Neut # (Auto) (1.4-6.5) K/uL Lymph # (Auto) (1.2-3.4) K/uL Hemphill # (Auto) (0.24-0.82) K/uL Eos # (Auto) (0-0.50) K/uL Baso # (Auto) (0-0.2) K/uL Immature Gran # (Auto) (0.00-0.02) K/uL PT (9.0-12.0) Seconds INR (0.9-1.1) APTT (21.0-31.0) Seconds PTT Ratio Sodium (136-145) mmol/L Potassium (3.5-5.1) mmol/L Chloride (98-107) mmol/L Carbon Dioxide (21-32) mmol/L Anion Gap (3-11) BUN (6-23) mg/dl Creatinine (0.6-1.2) mg/dl Est Cr Clr Drug Dosing Est GFR ( Amer) ml/min Est GFR (Non-Af Amer) ml/min BUN/Creatinine Ratio (10-20) Glucose (70-99(Fasting)) mg/dl Calcium (8.5-10.1) mg/dl Magnesium (1.7-2.4) mg/dl Total Bilirubin (0.2-1.0) mg/dl AST (13-39) U/L ALT (7-52) U/L Alkaline Phosphatase (34-104) U/L Troponin I High Sens (0-14) pg/ml B-Natriuretic Peptide (0-100) pg/ml Total Protein (6.0-8.3) gm/dl Albumin (3.4-5.0) gm/dl Globulin (2.5-4.0) gm/dl Albumin/Globulin Ratio (0.9-2) TSH (0.300-4.500) uIu/ml Free T4 (0.61-1.60) ng/dl Digoxin (0.8-2.0) ng/ml SARS-CoV-2, RNA, NAAT NEGATIVE (NEGATIVE) Administered Medications Discontinued Medications Acetaminophen (Acetaminophen 1000 Mg/100 Ml Iv) 1,000 mg IV NOW STA Stop: 09/25/21 18:10 Last Admin: 09/25/21 18:42 Dose: 1,000 mg Documented By: [id number] Sodium Chloride (Nss) 500 mls @ 999 mls/hr IV .Q31M STA Stop: 09/25/21 17:00 Last Admin: 09/25/21 19:03 Dose: Not Given Documented By: [id number] Sodium Chloride (Nss 1000ml) 500 mls @ 999 mls/hr IV .Q31M ONE Stop: 09/25/21 18:39 Last Infusion: 09/25/21 19:27 Dose: 0 mls/hr Documented By: Admin: 09/25/21 18:56 Dose: 999 mls/hr Documented By: [id number] Imaging Data Radiologist's Impression: Chest X-Ray 09/25/21 16:31 XR chest 1V portable HISTORY: 89 years-old Female Dyspnea acute shortness of breath COMPARISON: Chest radiograph 09/23/2021, CTA chest 09/15/2021 TECHNIQUE: AP view of the chest FINDINGS: Cardiac silhouette is enlarged. Surgical clips project over the right hilum. Left subclavian pacer. Atherosclerosis of the thoracic aorta. Unchanged 9 mm nodule of the right lung apex. No pneumothorax, pleural effusion, airspace consolidation or overt pulmonary edema. Mild chronic interstitial coarsening. Unchanged blunting of the costophrenic angles with mild hyperinflation. Degenerative changes of the spine and left shoulder. Reverse right shoulder total joint arthroplasty. IMPRESSION: 1. No acute process of the chest. 2. Unchanged 9 mm nodule of the right upper lung. ACT 112: Negative or not required by law. The above report was generated using voice recognition software. It may contain grammatical, syntax or spelling errors. Electronically signed by: Chacho Schrader M.D. 09/25/2021 5:27 PM Discharge Plan Visit Data Chief Complaint: Shortness of Breath/Dyspnea Stated Complaint: SHORTNESS OF BREATH, CANNOT WALK ED Provider: Lars Kinsey Discharge Problem: Weakness, Elevated troponin, Precordial chest pain, SOB (shortness of breath), Atrial fibrillation Patient Disposition: Admitted As Inpatient Condition: Fair
--- NOTE | 2021-09-25 20:01 | History & Physical Report ---
Date of Service September 25, 2021 Assessment & Plan (1) Chest pain: Plan: 89 year old female with history of A fib on Eliquis, CHFpEF, Hyperthyroidism, HTN presenting with weakness. CHEST PAIN, ELEVATED TROPONIN POSSIBLE NSTEMI EKG: no acute ischemia noted Troponin 176--> [address] Joseph, recommendations: Amiodarone Drip ASA 324mg one dose, hold Eliquis limited echo in the morning continue Metoprolol Yarder consulted NPO for now WEAKNESS likely secondary to above UTI contributing Urine culture from 09/23/21 growing Proteus and Klebsiella start Ceftriaxone 2g IV (based on sensitivities) PAROXYSMAL A FIB rate controlled continue Digoxin, Amiodarone hold Eliquis per Cardio Digoxin level normal CHF,pEF appears euvolemic HYPERTHYROIDISM new diagnosis from 2 days ago continue Prednisone, Methimazole ff up with Dr. Lozano in 2 weeks HTN hold Lisinopril as BP on the lower side DVT prophylaxis Eliquis--> held for now Code status DNR as per patient Disposition pending may need SNF plan of care discussed with patient and her daughter at bedside in detail and at length all questions answered they are understanding, agreeable, comfortable with the plan of care History of Present Illness Chief Complaint: weakness Primary Care Provider: Chung Arrington DO 89 year old female with history of A fib on Eliquis, CHFpEF, Hyperthyroidism, HTN presenting with weakness. Patient was just discharged from [facility] yesterday after evaluation for syncope and new diagnosis of hyperthyroidism. She was discharged on Methimazole, Prednisone. For A fib, digoxin was added, and Metoprolol tartrated was changed to Metoprolol succinate. At home, patient reports she felt very weak, could not stand up from bed. no fever/chills, headache, dizziness, chest pain, dyspnea, abdominal pain, nausea/vomiting, changes with urination/BM At the ER, patient also reports persistent chest pain- since last week. EKG did not reveal acute ischemia or infarct. Trop 170s, increased from 15 yesterday. On exam, patient reports moderate L sided chest pain and weakness. no other symptoms Allergies Allergy/AdvReac Type Severity Reaction Status Date / Time adhesive Allergy Intermediate RASH, Verified 09/25/21 18:39 REDDNESS AT SITE codeine Allergy Intermediate RASH, Verified 09/25/21 18:39 SEVERE ITCHING metronidazole Allergy Intermediate SEVERE Verified 09/25/21 18:39 YEAST/VAGINAL INFX morphine AdvReac Severe IRREGULAR Verified 09/25/21 18:39 HEART RATE, EXTREME SEDATION propoxyphene AdvReac Severe A-FIB Verified 09/25/21 18:39 Home Medications Medication Instructions Recorded Confirmed Type lisinopril 5 mg tablet 5 mg PO QAM 01/30/18 09/25/21 History melatonin 10 mg tablet 10 mg PO HS PRN Sleep 10/26/18 09/25/21 History magnesium oxide 400 mg PO QAM 12/31/19 09/25/21 History docusate sodium 100 mg capsule 100 mg PO HS PRN Constipation 03/10/20 09/25/21 History (Stool Softener) omega 9-hha-woa-fish oil 1,200 mg 2 cap PO BID 03/10/20 09/25/21 History (144 mg-216 mg) capsule (Fish Oil) amiodarone 200 mg tablet 100 mg PO QAM 05/03/20 09/25/21 History apixaban 2.5 mg tablet (Eliquis) 2.5 mg PO BID 05/03/20 09/25/21 History glucosamine sulf dipot 2 cap PO QAM 05/03/20 09/25/21 History chlr,msm,chond 550 mg-C 30 mg-yennifer 1 mg capsule (Glucosamine Chondroitin) pantoprazole 40 mg tablet,delayed 40 mg PO QAM 05/03/20 09/25/21 History release magnesium hydroxide 400 mg/5 mL 15 ml PO DAILY PRN Constipation 05/25/20 09/25/21 History oral suspension (Milk of Magnesia) furosemide 20 mg tablet (Lasix) 20 mg PO 2XWK PRN sweling and 10/30/20 09/25/21 Rx weight gain #30 tabs hydroxyzine HCl 10 mg tablet 10 mg PO Q6 PRN anxiety #20 tabs 09/06/21 09/25/21 Rx melatonin 3 mg tablet 6 mg PO HS #30 tabs 09/06/21 09/25/21 Rx mirtazapine 15 mg tablet 15 mg PO HS #30 tabs 09/06/21 09/25/21 Rx digoxin 125 mcg (0.125 mg) tablet 125 mcg PO DAILY@1600 #30 tabs 08/09/22 08/10/22 Rx (Digitek) methimazole 10 mg tablet 10 mg PO TID #90 tabs 09/24/21 09/25/21 Rx metoprolol succinate 50 mg 50 mg PO BID #60 tabs 09/24/21 09/25/21 Rx tablet,extended release 24 hr prednisone 20 mg tablet 20 mg PO DAILY #30 tabs 09/24/21 09/25/21 Rx Past Med/Surg History Medical History 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 Bay History of lung cancer 1993- s/p RUL lung resection History of trigger finger multiple to both hands Hyperlipidemia Hypertension Longstanding LBBB (left bundle branch block) Chronic per cardio records Pacemaker Placed Mar 16, 2020> [facility] > follows Dr. 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 Bay SOB (shortness of breath) TIA (transient ischemic attack) no further issues > 2017 > doesn't follow neuro Surgical History H/O section x1 H/O hemorrhoidectomy H/O ultrasound guided needle biopsy of lung History of cardiac cath 2010 - no obstructive CAD History of carpal tunnel release bilat History of cataract surgery bilat History of colon resection 8 inches > 2001 History of colonoscopy History of hysterectomy History of lung surgery 1993 > RUL > due to cancer > no chemo/radiation History of right shoulder replacement reverse History of spinal surgery Hx of cholecystectomy Hx of exploratory thoracotomy Family History Aunt Diabetes Other Abdominal aortic aneurysm Stroke Social History Smoking Status: Unknown if ever smoked Tobacco Type: Cigarettes Second Hand Exposure: No; Hx Alcohol Use: No Hx Substance Use: No Preferred Language: Luxembourgish Communication Ability: Effective Visual Impairment: Limited Hearing Ability: Hard of Hearing Conference Planning Manager Required: Yes Beliefs That Will Affect Care: None marital status: Current Living Situation: Spouse How many Children do You have: 2 Feels Safe at Home: Yes Assistive Devices: None Review of Systems Review of Systems: all noted and negative except for above Physical Exam Physical Exam: General- oriented x 3, not in distress, speaks in sentences with no effort or accessory muscle use appears frail Head- atraumatic Eyes- PERRL, EOMI, anicteric ENT- oropharynx clear Neck- supple, no JVD, no adenopathy, no thyromegaly; carotids +2/2, no bruits appreciated Lungs- clear to auscultation bilaterally, no rales/wheezes Heart- normal rate, irregularly irregular rhythm; no murmur, no gallop, no rub appreciated Abdomen- normal bowel sounds, nondistended, soft, nontender, no masses or hepatosplenomegaly Extremities- no pretibial edema, no calf tenderness; peripheral pulses intact Neuro- alert, oriented x 3; CN 2-12 grossly intact; motor 5/5 bilaterally;sensation 100% on all extremities; no other gross focal neurologic deficits Skin- warm & dry Results & Data Results & Data ([facility]) Vital Signs (Past 12 Hours) Vital Signs Temp Pulse Resp BP Pulse Ox O2 Del Method 09/25/21 17:23 Room Air 09/25/21 16:31 36.6 C 104 H 17 95/58 L 96 Room Air all noted and reviewed including below Code Status & VTE Plan VTE Prophylaxis Plan VTE Prophylaxis will be ordered: Yes
[2021-09-25] MEDS ORDERED: AMIODARONE / D5W 150 MG/100 ML BAG IV STA (20:49)
[2021-09-25] MEDS ORDERED: STAT IV Infusion **Titration per Protocol STA (20:49)
[2021-09-25] MEDS ORDERED: 0.2 MICRON FILTER SET 1 EACH IV STA (20:49)
[2021-09-25] MEDS ORDERED: FUROSEMIDE 20 MG TAB PO PRN (20:49)
[2021-09-25] MEDS ORDERED: ASPIRIN CHEW 324 MG PO STA (20:49)
[2021-09-25] MEDS ORDERED: ACETAMINOPHEN 325 MG TAB PO PRN (20:49)
[2021-09-25] MEDS ORDERED: AMIODARONE IV BOLUS & DRIP IV STA (20:49)
[2021-09-25] MEDS: MELATONIN 3 MG TAB PO SCH (21:20)
[2021-09-25] MEDS: cefTRIAXone SODIUM 2,000 MG in DEXTROSE 5% 50 ML IV SCH (21:20)
[2021-09-25] MEDS: MIRTAZAPINE TAB 15 MG TAB PO SCH (21:21)
[2021-09-25] MEDS: METOPROLOL SUCC 50MG EXT REL TAB PO SCH (21:21)
[2021-09-25] MEDS: methIMAzole 5 MG TABLET PO SCH (21:21)
[2021-09-25] MEDS ORDERED: NITROGLYCERIN 2% OINTMENT 30GM TUBE EXT SCH (22:00)
[2021-09-25] MEDS ORDERED: traMADol HCL 50 MG TABLET PO PRN (22:35)
[2021-09-25] MEDS ORDERED: traMADol HCL 50 MG TABLET ONE (22:41)
[2021-09-25] MEDS ORDERED: ALUMINUM/MAGNESIUM SUSP 30 ML UDC PO STA (22:50)
[2021-09-25] MEDS ORDERED: Heparin IV Adult Wt-Based Standard *NO* Bolus Protocol IV SCH (23:01)
--- NOTE | 2021-09-25 23:01 | Communication Note ---
Date of Service: September 25, 2021 Patient with persistent chest pain since admission. EKG as per my interpretation rate 80, A. fib, LAD, LAFB, LBBB. AP NSTEMI IV heparin while Eliquis on hold.
[2021-09-25] MEDS: AMIODARONE / D5W 360 MG/200 ML BAG IV ONE ×2 (23:12→23:30)
[2021-09-25] MEDS ORDERED: HEPARIN SODIUM/DEXTROSE 25,000 UNITS/500 ML BAG IV SCH (23:30)
[2021-09-26] MEDS ORDERED: AMIODARONE / D5W 360 MG/200 ML BAG IV SCH (03:00)
[2021-09-26 08:06] LABS: Basophils # (auto) 0.04 K/uL (0-0.2); Basophils % (auto) 0.8 %; Eosinophils # (auto) 0.08 K/uL (0-0.50); Eosinophils % (auto) 1.6 %; Hematocrit (blood only) 33.3 % (34.1-44.9); Immature Granulocytes # (auto) 0.02 K/uL (0.00-0.02); Immature Granulocytes % (auto) 0.4 %; Lymphocytes # (auto) 2.36 K/uL (1.2-3.4); Lymphocytes % (auto) 47.7 %; Mean Corpuscular Hemoglobin 27.9 pg (25.0-34.0); Mean Corpuscular Volume 84.5 fL (80.0-100.0); Mean Platelet Volume 9.6 fL (9.4-12.3); Monocytes # (auto) 0.46 K/uL (0.24-0.82); Monocytes % (auto) 9.3 %; Neutrophils # (auto) 1.99 K/uL (1.4-6.5); Neutrophils % (auto) 40.2 %; Platelet Count 220 K/uL (130-400); RDW Coefficient of Variation 13.1 % (11.5-14.5); RDW Standard Deviation 40.7 fL (36.4-46.3); Red Blood Count 3.94 M/uL (3.93-5.22); White Blood Count 4.95 K/ul (4.8-10.8)
[2021-09-26 08:34] LABS: Albumin Globulin Ratio 1.5 (0.9-2); Albumin Level 3.2 gm/dl (3.4-5.0); BUN Creatinine Ratio 40.3 (10-20); Bilirubin,Total 0.4 mg/dl (0.2-1.0); Calcium 8.8 mg/dl (8.5-10.1); Creatinine Clr Calc Pharmacy 45.7 ml/min; Est GFR (African American) 86.1 ml/min; Est GFR (Non-African American) 74.3 ml/min; Globulin 2.1 gm/dl (2.5-4.0); Potassium 4.3 mmol/L (3.5-5.1); Total Protein 5.3 gm/dl (6.0-8.3)
[2021-09-26 08:39] LABS: Partial Thromboplastin Ratio 2.3
[2021-09-26 08:41] LABS: Partial Thromboplastin Time 62.4 Seconds (21.0-31.0)
[2021-09-26] MEDS: methIMAzole 5 MG TABLET PO SCH ×3 (08:44→20:49)
[2021-09-26] MEDS: MAGNESIUM OXIDE 400 MG TAB PO SCH (08:44)
[2021-09-26] MEDS: METOPROLOL SUCC 50MG EXT REL TAB PO SCH (08:44)
[2021-09-26] MEDS: predniSONE 20 MG TAB PO SCH (08:44)
[2021-09-26] MEDS: PANTOprazole 40 MG TAB PO SCH (08:44)
[2021-09-26] MEDS ORDERED: LIDOCAINE 1% LOCAL 20 ML VIAL ONE ×2 (10:53→11:45)
--- NOTE | 2021-09-26 10:57 | Cardiology Consultation ---
Date of Consultation September 26, 2021 Assessment & Plan (1) NSTEMI (non-ST elevated myocardial infarction): (2) Paroxysmal atrial fibrillation: (3) LBBB (left bundle branch block): (4) Hyperthyroidism: (1) NSTEMI (non-ST elevated myocardial infarction): At the time of presentation earlier this week as well as presentation last evening, it was felt that her symptoms of fatigue, chest pressure related to episodes of recurrent atrial fibrillation. She is now having ongoing chest pressure despite being in sinus rhythm. As noted, this is her fourth hospital stay. Her presenting troponin of 178 PG per mL was higher than that noted on the day before of 15 PG per mL, on although it seemed like she was doing a little bit better overnight last night, she has no interest again, most recent at bedtime troponin having been performed at 2317 was 110 PG per mL, no repeat this morning. EKG reveals chronic left bundle branch block without diagnostic repolarization changes. At this point, would recommend proceeding with coronary angiography. Patient agreeable. Although would like to expedite having the procedure performed this is possible, patient is seen in the emergency department at a time of high acuity, and there is another case pending completion in the Entrance Guard of another critically ill patient before her procedure start. The patient's Eliquis is on hold, and she is on a heparin infusion. She received 324 mg of aspirin last evening, and another dose will be administered now. Continue chronic treatment with metoprolol, continue digoxin, topical nitrates added, cautiously given low blood pressure. Echocardiogram performed this morning revealed normal LVEF, with abnormal septal motion consistent with left bundle branch block, no regional wall motion abnormalities. Add atorvastatin. (2) Paroxysmal atrial fibrillation: -As noted, continue metoprolol, digoxin, amiodarone, on heparin bridge at present. (3) LBBB (left bundle branch block): -Chronic (4) Hyperthyroidism: -Continue Tapazole, prednisone. History of Present Illness Attending Physician: Yana Álvarez MD History of Present Illness Geni Payan is an 89-year-old female seen in cardiology consultation per the request of Dr. Guevara for the evaluation of chest pain and paroxysmal atrial fibrillation. This the patient's fourth trip to the hospital in less than a month. She had been seen by the undersigned several days ago, discharged on 09/24/2021 having presented with a fall episode, chest pressure, and palpitations that were felt to be due to recurrent highly symptomatic episodes of paroxysmal atrial fibrillation at that time as her symptoms seem to correlate with the onset of atrial fibrillation as noted on pacemaker interrogation. Complicating treatment of her highly symptomatic atrial arrhythmias was a new diagnosis of hyperthyroidism in the setting of amiodarone treatment. She was discharged on ongoing metoprolol, low-dose amiodarone 100 mg daily, new treatment with digoxin, as well as Tapazole and prednisone for hyperthyroidism. She was asymptomatic and in sinus rhythm at the time of discharge. She presented overnight last night with symptoms of recurrent chest pressure. She is noted to be back in atrial fibrillation with mildly elevated ventricular rates, and with administration of AV amiodarone she has since converted to sinus rhythm. Current EKG reflects sinus rhythm in the 60s with demand atrial pacing, and chronic left bundle branch block. Her high-sensitivity troponin however was noted to be elevated to 178.3 PG per mL on presentation yesterday at 17:19 with subsequent measurements of 153 and 110. She had temporarily felt better with protestant of sinus rhythm, however at the time of my assessment in room B2 she was noted to be in acute distress with ongoing worsening chest pressure, and newly noted hypoxia prompting increased oxygen supplementation. Cardiology Problem List: 1. Longstanding hypertension 2. Chronic left bundle branch block 3. History of cerebral carotid artery aneurysm clipping 1988 4. Single episode transient atrial flutter post operatively 1988 5. Hyperlipidemia 6. Cardiac catheterization November 2010 without obstructive coronary disease 7. TIA with transient aphasia June of 2017 8. Paroxysmal atrial fibrillation with hospitalization November 07, 2019 with rapid response 9. 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 Status post right upper lobectomy 1993 Allergies Allergy/AdvReac Type Severity Reaction Status Date / Time adhesive Allergy Intermediate RASH, Verified 09/25/21 18:39 REDDNESS AT SITE codeine Allergy Intermediate RASH, Verified 09/25/21 18:39 SEVERE ITCHING metronidazole Allergy Intermediate SEVERE Verified 09/25/21 18:39 YEAST/VAGINAL INFX morphine AdvReac Severe IRREGULAR Verified 09/25/21 18:39 HEART RATE, EXTREME SEDATION propoxyphene AdvReac Severe A-FIB Verified 09/25/21 18:39 Home Medications Medication Instructions Recorded Confirmed Type lisinopril 5 mg tablet 5 mg PO QAM 01/30/18 09/25/21 History melatonin 10 mg tablet 10 mg PO HS PRN Sleep 10/26/18 09/25/21 History magnesium oxide 400 mg PO QAM 12/31/19 09/25/21 History docusate sodium 100 mg capsule 100 mg PO HS PRN Constipation 03/10/20 09/25/21 History (Stool Softener) omega 2-aqs-bmk-fish oil 1,200 mg 2 cap PO BID 03/10/20 09/25/21 History (144 mg-216 mg) capsule (Fish Oil) amiodarone 200 mg tablet 100 mg PO QAM 05/03/20 09/25/21 History apixaban 2.5 mg tablet (Eliquis) 2.5 mg PO BID 05/03/20 09/25/21 History glucosamine sulf dipot 2 cap PO QAM 05/03/20 09/25/21 History chlr,msm,chond 550 mg-C 30 mg-yennifer 1 mg capsule (Glucosamine Chondroitin) pantoprazole 40 mg tablet,delayed 40 mg PO QAM 05/03/20 09/25/21 History release magnesium hydroxide 400 mg/5 mL 15 ml PO DAILY PRN Constipation 05/25/20 09/25/21 History oral suspension (Milk of Magnesia) furosemide 20 mg tablet (Lasix) 20 mg PO 2XWK PRN sweling and 10/30/20 09/25/21 Rx weight gain #30 tabs hydroxyzine HCl 10 mg tablet 10 mg PO Q6 PRN anxiety #20 tabs 09/06/21 09/25/21 Rx melatonin 3 mg tablet 6 mg PO HS #30 tabs 09/06/21 09/25/21 Rx mirtazapine 15 mg tablet 15 mg PO HS #30 tabs 09/06/21 09/25/21 Rx digoxin 125 mcg (0.125 mg) tablet 125 mcg PO DAILY@1600 #30 tabs 09/24/2109/25 Rx (Digitek) methimazole 10 mg tablet 10 mg PO TID #90 tabs 09/24/21 09/25/21 Rx metoprolol succinate 50 mg 50 mg PO BID #60 tabs 09/24/21 09/25/21 Rx tablet,extended release 24 hr prednisone 20 mg tablet 20 mg PO DAILY #30 tabs 09/24/21 09/25/21 Rx Patient History Medical History Aneurysm brain> surgery to repair at [facility] > 1988 Per records "History of cerebral carotid artery aneurysm clipping 1988 " COVID Dysarthria GERD (gastroesophageal reflux disease) Heart failure follows Dr. Bay History of lung cancer 1993- s/p RUL lung resection History of trigger finger multiple to both hands Hyperlipidemia Hypertension Longstanding LBBB (left bundle branch block) Chronic per cardio records Pacemaker Placed Mar 16, 2020> [facility] > follows Dr. 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 Bay SOB (shortness of breath) TIA (transient ischemic attack) no further issues > 2017 > doesn't follow neuro Surgical History H/O section x1 H/O hemorrhoidectomy H/O ultrasound guided needle biopsy of lung History of cardiac cath 2010 - no obstructive CAD History of carpal tunnel release bilat History of cataract surgery bilat History of colon resection 8 inches > 2001 History of colonoscopy History of hysterectomy History of lung surgery 1993 > RUL > due to cancer > no chemo/radiation History of right shoulder replacement reverse History of spinal surgery Hx of cholecystectomy Hx of exploratory thoracotomy Family History Aunt Diabetes Other Abdominal aortic aneurysm Stroke Social History Smoking Status: Unknown if ever smoked Tobacco Type: Cigarettes Second Hand Exposure: No; Hx Alcohol Use: No Hx Substance Use: No Preferred Language: [place] Communication Ability: Effective Visual Impairment: Limited Hearing Ability: Hard of Hearing Car Wash 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 Required: Yes Beliefs That Will Affect Care: None marital status: Current Living Situation: Spouse How many Children do You have: 2 Feels Safe at Home: Yes Assistive Devices: None Review of Systems Constitutional: + weakness Cardiovascular: Additional Comments: Chest pressure, generalized weakness, shortness of breath Physical Exam Physical Exam: Temp Pulse Resp BP Pulse Ox O2 Del Method O2 Flow Rate 36.9 C 61 14 102/50 L 100 2 09/25/21 20:51 09/26/21 09:10 09/26/21 09:10 09/26/21 09:10 09/26/21 08:51 09/26/21 06:40 09/26/21 06:40 Constitutional: + acute distress and + thin Respiratory: normal respiratory effort, lungs clear to auscultation Cardiovascular: RRR, no murmur, no edema Chest (Breasts): Additional Comments: Left infraclavicular pacemaker pocket clean dry and intact Gastrointestinal (Abdomen): normal bowel sounds, soft, nontender, no hepatosplenomegaly Neurologic: PERRL, EOMI, accommodation nl, no face palsy, no dysarthria Results & Data ([facility]) Laboratory Results Cardiac Enzymes 09/25/21 09/25/21 09/25/21 Range/Units 17:19 18:18 19:25 AST 13 (13-39) U/L Troponin I High Sens 178.3 H* D 153.6 H* (0-14) pg/ml B-Natriuretic Peptide 337 H (0-100) pg/ml 09/25/21 09/26/21 Range/Units 23:17 07:54 AST 9 L (13-39) U/L Troponin I High Sens 110.9 H* D (0-14) pg/ml B-Natriuretic Peptide (0-100) pg/ml Coagulation 09/25/21 09/25/21 09/26/21 Range/Units 17:19 18:18 07:54 PT 10.5 (9.0-12.0) Seconds APTT 25.9 62.4 H* (21.0-31.0) Seconds B-Natriuretic Peptide 337 H (0-100) pg/ml CBC 09/25/21 09/26/21 Range/Units 17:19 07:54 WBC 8.65 4.95 (4.8-10.8) K/ul RBC 4.57 3.94 (3.93-5.22) M/uL Hgb 12.8 11.0 L (12.0-16.0) g/dl Hct 38.4 33.3 L (34.1-44.9) % Plt Count 307 220 (130-400) K/uL Neut # (Auto) 5.04 1.99 (1.4-6.5) K/uL Lymph # (Auto) 2.83 2.36 (1.2-3.4) K/uL [place] # (Auto) 0.65 0.46 (0.24-0.82) K/uL Eos # (Auto) 0.06 0.08 (0-0.50) K/uL Baso # (Auto) 0.04 0.04 (0-0.2) K/uL Comprehensive Metabolic Panel 09/25/21 09/26/21 Range/Units 17:19 07:54 Sodium 139 139 (136-145) mmol/L Potassium 4.0 4.3 (3.5-5.1) mmol/L Chloride 105 107 (98-107) mmol/L Carbon Dioxide 26 28 (21-32) mmol/L BUN 29 H 29 H (6-23) mg/dl Creatinine 0.83 0.72 (0.6-1.2) mg/dl Glucose 98 93 (70-99(Fasting)) mg/dl Calcium 9.6 8.8 (8.5-10.1) mg/dl AST 13 9 L (13-39) U/L ALT 11 9 (7-52) U/L Alkaline Phosphatase 58 45 (34-104) U/L Total Protein 6.7 5.3 L D (6.0-8.3) gm/dl Albumin 3.9 3.2 L (3.4-5.0) gm/dl Intake and Output 09/25/21 09/26/21 09/26/21 22:59 06:59 14:59 Intake Total 800 / 1170 370 / 1170 63.46 / 63.46 Balance 800 / 1170 370 / 1170 63.46 / 63.46 Intake: IV 500 / 870 370 / 870 63.46 / 63.46 Amiodarone / D5w 150 mg In 100 100 / 100 ml @ 600 mls/hr IV NOW STA Rx#: [id number] Amiodarone / D5w 360 mg In 200 200 / 200 63.46 / 63.46 ml @ 0.5 MG/MIN 16.667 mls/hr IV .Q12H BERNARDINO Rx#:[id number] Sodium Chloride 0.9% 1000ML 500 500 / 500 ml @ 999 mls/hr IV .Q31M ONE Rx#:[id number] cefTRIAXone SODIUM 2,000 mg In 70 / 70 Dextrose 5% 50 ml @ 100 mls/hr IV Q24H BERNARDINO Rx#:[id number] Oral 300 / 300 0 / 300 Other: # Unmeasured Voids 1 Weight 57 kg Weight Measurement Method Built in [facility]
[2021-09-26] MEDS ORDERED: NITROGLYCERIN 2% OINTMENT 30GM TUBE EXT SCH (11:00)
[2021-09-26] MEDS ORDERED: ASPIRIN 81 MG CHEW PO STA (11:09)
[2021-09-26] MEDS ORDERED: LORazepam 0.5 MG in SYRINGE 0.25 ML IV STA (11:34)
[2021-09-26] MEDS ORDERED: fentaNYL citrate 100 MCG/2 ML VIAL ONE (11:44)
[2021-09-26] MEDS ORDERED: HEPARIN (PORCINE) 1000 UNIT/ML 10 ML (CATH LAB USE ONLY) ONE (11:44)
[2021-09-26] MEDS ORDERED: MIDAZOLAM HCL 1 MG/ML 2ML VIAL ONE (11:44)
[2021-09-26] MEDS ORDERED: niCARdipine HCL INJ 2.5 MG/ML 10 ML AMP ONE (11:44)
[2021-09-26] MEDS ORDERED: NITROGLYCERIN/D5W 100MCG/ML 20ML SYR ONE (11:45)
--- NOTE | 2021-09-26 12:22 | Hospitalist Progress Note ---
Date of Service September 26, 2021 Assessment & Plan (1) Chest pain: Plan: 89 year old female with history of A fib on Eliquis, CHFpEF, Hyperthyroidism, HTN presenting with weakness. CHEST PAIN ELEVATED TROPONIN Need to r/o ACS Received aspirin 325mg and was started on heparin drip S/P cardiac cath with no major vessel occluded Echo showed left ventricular wall is normal with EF 60- 65% Cardiology on board Heparin drip was discontinued then transition to eliquis Continue statin and metoprolol Clinically stable PAROXYSMAL A FIB rate controlled continue Digoxin metoprolol increased to 75mg BID and Diltiazem 30mg added Amiodarone discontinued Continue Eliquis UTI Urine culture from 09/23/21 growing Proteus and Klebsiella Ceftriaxone 2g IV changed to Cefazolin Plan to transition to PO abx WEAKNESS Mostly due to UTI PT/OT eval Fall precaution Consider inpatient rehab CHF Complaint of SOB lasix 10mg IV given HYPERTHYROIDISM new diagnosis from 2 days ago continue Prednisone, Methimazole ff up with Dr. Lozano in 2 weeks HTN hold Lisinopril as BP on the lower side DVT prophylaxis On Eliquis Code status DNR Disposition may need SNF Admission and Anticipated Discharge Date Admission Date: September 25, 2021 Subjective Patient was seen and evaluated for follow-up of chest pain Lying in bed with no acute distress Pt said that she feels tired this morning Currently denies any chest pain, palpitation, dizziness, and fever Review of Systems Review of Systems: All systems reviewed & are unremarkable except as noted in Subjective Physical Exam Physical Exam: General- No acute distress Head- atraumatic Eyes- PERRL, EOMI, ENT- oropharynx clear Neck- supple, no JVD Lungs- clear to auscultation Heart- regular rhythm; no murmur Abdomen- normal bowel sounds, soft, nontender Extremities- no calf tenderness, no hematoma noted in right wrist Neuro- alert, oriented x 3; PERRL, EOMI; no facial palsy; no dysarthria Skin- warm & dry Results & Data Results & Data ([facility]) Vital Signs (Past 12 Hours) Vital Signs Pulse Pulse Resp BP BP Pulse Ox O2 Del Method 09/26/21 11:46 62 16 137/59 L 100 Nasal Cannula 09/26/21 09:10 61 14 09/26/21 09:10 102/50 L 09/26/21 09:00 61 20 09/26/21 09:00 116/44 L 09/26/21 08:51 120/50 L 09/26/21 08:51 67 14 100 09/26/21 08:50 73 16 100 09/26/21 08:40 60 18 09/26/21 08:40 99/40 L 09/26/21 08:30 60 19 09/26/21 08:30 99/41 L 09/26/21 08:20 61 19 09/26/21 08:20 100/41 L 09/26/21 08:10 61 24 09/26/21 08:10 114/50 L 09/26/21 08:00 78 15 09/26/21 08:00 120/59 L 09/26/21 07:50 60 17 100 09/26/21 07:50 108/40 L 09/26/21 07:40 60 17 100 09/26/21 07:40 101/42 L 09/26/21 07:30 60 18 100 09/26/21 07:30 101/44 L 09/26/21 07:20 61 16 100 09/26/21 07:20 103/42 L 09/26/21 07:10 60 16 09/26/21 07:10 97/40 L 09/26/21 07:00 69 99 09/26/21 07:00 103/50 L 09/26/21 06:50 63 17 99 09/26/21 06:50 103/49 L 09/26/21 06:40 61 17 101/45 L 100 Nasal Cannula 09/26/21 06:30 62 17 111/46 L 100 Nasal Cannula 09/26/21 06:20 61 17 91/44 L 100 Nasal Cannula 09/26/21 06:10 61 17 113/47 L 100 Nasal Cannula 09/26/21 06:00 62 19 102/47 L 99 Nasal Cannula 09/26/21 05:50 61 21 93/43 L 99 Nasal Cannula 09/26/21 05:40 62 17 90/43 L 99 Nasal Cannula 09/26/21 05:30 60 21 97/44 L 99 Nasal Cannula 09/26/21 05:20 63 20 83/40 L 100 Nasal Cannula 09/26/21 05:10 63 20 88/42 L 99 Nasal Cannula 09/26/21 05:00 61 18 79/43 L 99 Nasal Cannula 09/26/21 04:50 62 21 89/40 L 99 Nasal Cannula 09/26/21 04:40 61 20 83/42 L 99 Nasal Cannula 09/26/21 04:30 61 20 81/42 L 99 Nasal Cannula 09/26/21 04:20 61 15 80/40 L 99 Nasal Cannula 09/26/21 04:10 62 20 87/38 L 99 Nasal Cannula 09/26/21 04:00 62 19 84/39 L 99 Nasal Cannula 09/26/21 03:50 61 19 88/41 L 99 Nasal Cannula 09/26/21 03:40 61 19 81/44 L 99 Nasal Cannula 09/26/21 03:30 62 17 96/40 L 100 Nasal Cannula 09/26/21 03:21 64 12 114/51 L 100 Nasal Cannula 09/26/21 03:10 19 100/39 L 96 Nasal Cannula 09/26/21 03:00 62 19 92/36 L 96 Nasal Cannula 09/26/21 02:50 63 20 89/41 L 96 Nasal Cannula 09/26/21 02:40 63 19 85/39 L 97 Nasal Cannula 09/26/21 02:30 64 18 81/36 L 97 Nasal Cannula 09/26/21 02:20 63 21 90/44 L 96 Nasal Cannula 09/26/21 02:00 63 19 83/37 L 98 Nasal Cannula 09/26/21 01:50 66 21 84/37 L 98 Nasal Cannula 09/26/21 01:36 65 18 101/50 L 98 Nasal Cannula 09/26/21 01:20 63 20 84/43 L 99 Nasal Cannula 09/26/21 01:10 64 20 84/40 L 99 Nasal Cannula 09/26/21 01:00 62 15 87/45 L 99 Nasal Cannula 09/26/21 00:50 63 18 89/39 L 99 Nasal Cannula 09/26/21 00:40 63 20 95/42 L 96 Nasal Cannula 09/26/21 00:30 63 19 88/41 L 96 Nasal Cannula O2 Flow Rate 09/26/21 11:46 6 09/26/21 09:10 09/26/21 09:10 09/26/21 09:00 09/26/21 09:00 09/26/21 08:51 09/26/21 08:51 09/26/21 08:50 09/26/21 08:40 09/26/21 08:40 09/26/21 08:30 09/26/21 08:30 09/26/21 08:20 09/26/21 08:20 09/26/21 08:10 09/26/21 08:10 09/26/21 08:00 09/26/21 08:00 09/26/21 07:50 09/26/21 07:50 09/26/21 07:40 09/26/21 07:40 09/26/21 07:30 09/26/21 07:30 09/26/21 07:20 09/26/21 07:20 09/26/21 07:10 09/26/21 07:10 09/26/21 07:00 09/26/21 07:00 09/26/21 06:50 09/26/21 06:50 09/26/21 06:40 2 09/26/21 06:30 2 09/26/21 06:20 2 09/26/21 06:10 2 09/26/21 06:00 2 09/26/21 05:50 2 09/26/21 05:40 2 09/26/21 05:30 2 09/26/21 05:20 2 09/26/21 05:10 2 09/26/21 05:00 2 09/26/21 04:50 2 09/26/21 04:40 2 09/26/21 04:30 2 09/26/21 04:20 2 09/26/21 04:10 2 09/26/21 04:00 2 09/26/21 03:50 2 09/26/21 03:40 2 09/26/21 03:30 2 09/26/21 03:21 2 09/26/21 03:10 2 09/26/21 03:00 2 09/26/21 02:50 2 09/26/21 02:40 2 09/26/21 02:30 2 09/26/21 02:20 2 09/26/21 02:00 2 09/26/21 01:50 2 09/26/21 01:36 2 09/26/21 01:20 2 09/26/21 01:10 2 09/26/21 01:00 2 09/26/21 00:50 2 09/26/21 00:40 2 09/26/21 00:30 2
--- NOTE | 2021-09-26 12:34 | Communication Note ---
Date of Service: September 26, 2021 Patient reassessed in the cardiac Technical Sales Advisor staging area having received topical nitroglycerin and 0.5 mg of IV Ativan. She is now comfortable, resting supine. I had already updated her daughter, Geni by phone. I also have now called her , Ed and updated him. Ed's phone number: [phone]
--- NOTE | 2021-09-26 12:43 | Pre Anesthesia Assessment ---
Date of Service September 26, 2021 Pre Sedation Assessment Vital Signs Temp Pulse Pulse Resp BP BP Pulse Ox 09/26/21 11:46 62 16 137/59 L 100 09/26/21 09:10 61 14 09/26/21 09:10 102/50 L 09/26/21 09:00 61 20 09/26/21 09:00 116/44 L 09/26/21 08:51 120/50 L 09/26/21 08:51 67 14 100 09/26/21 08:50 73 16 100 09/26/21 08:40 60 18 09/26/21 08:40 99/40 L 09/26/21 08:30 60 19 09/26/21 08:30 99/41 L 09/26/21 08:20 61 19 09/26/21 08:20 100/41 L 09/26/21 08:10 61 24 09/26/21 08:10 114/50 L 09/26/21 08:00 78 15 09/26/21 08:00 120/59 L 09/26/21 07:50 60 17 100 09/26/21 07:50 108/40 L 09/26/21 07:40 60 17 100 09/26/21 07:40 101/42 L 09/26/21 07:30 60 18 100 09/26/21 07:30 101/44 L 09/26/21 07:20 61 16 100 09/26/21 07:20 103/42 L 09/26/21 07:10 60 16 09/26/21 07:10 97/40 L 09/26/21 07:00 69 99 09/26/21 07:00 103/50 L 09/26/21 06:50 63 17 99 09/26/21 06:50 103/49 L 09/26/21 06:40 61 17 101/45 L 100 09/26/21 06:30 62 17 111/46 L 100 09/26/21 06:20 61 17 91/44 L 100 09/26/21 06:10 61 17 113/47 L 100 09/26/21 06:00 62 19 102/47 L 99 09/26/21 05:50 61 21 93/43 L 99 09/26/21 05:40 62 17 90/43 L 99 09/26/21 05:30 60 21 97/44 L 99 09/26/21 05:20 63 20 83/40 L 100 09/26/21 05:10 63 20 88/42 L 99 09/26/21 05:00 61 18 79/43 L 99 09/26/21 04:50 62 21 89/40 L 99 09/26/21 04:40 61 20 83/42 L 99 09/26/21 04:30 61 20 81/42 L 99 09/26/21 04:20 61 15 80/40 L 99 09/26/21 04:10 62 20 87/38 L 99 09/26/21 04:00 62 19 84/39 L 99 09/26/21 03:50 61 19 88/41 L 99 09/26/21 03:40 61 19 81/44 L 99 09/26/21 03:30 62 17 96/40 L 100 09/26/21 03:21 64 12 114/51 L 100 09/26/21 03:10 19 100/39 L 96 09/26/21 03:00 62 19 92/36 L 96 09/26/21 02:50 63 20 89/41 L 96 09/26/21 02:40 63 19 85/39 L 97 09/26/21 02:30 64 18 81/36 L 97 09/26/21 02:20 63 21 90/44 L 96 09/26/21 02:00 63 19 83/37 L 98 09/26/21 01:50 66 21 84/37 L 98 09/26/21 01:36 65 18 101/50 L 98 09/26/21 01:20 63 20 84/43 L 99 09/26/21 01:10 64 20 84/40 L 99 09/26/21 01:00 62 15 87/45 L 99 09/26/21 00:50 63 18 89/39 L 99 09/26/21 00:40 63 20 95/42 L 96 09/26/21 00:30 63 19 88/41 L 96 09/26/21 00:20 63 19 89/41 L 96 09/26/21 00:10 81 21 102/47 L 99 09/26/21 00:00 69 20 90/47 L 99 09/25/21 23:50 66 20 95/46 L 100 09/25/21 23:40 77 17 86/47 L 97 09/25/21 23:30 75 20 99/51 L 99 09/25/21 23:20 80 18 95/52 L 93 09/25/21 23:12 80 20 92/50 L 99 09/25/21 23:00 81 19 93/47 L 99 09/25/21 22:58 84 20 100/52 L 99 09/25/21 22:30 77 20 113/51 L 99 09/25/21 22:22 80 21 100/56 L 92 09/25/21 22:20 83 23 88/50 L 93 09/25/21 22:00 83 19 84/48 L 95 09/25/21 21:30 88 22 125/53 L 95 09/25/21 21:00 97 H 20 122/65 97 09/25/21 20:58 90 17 123/66 90 09/25/21 20:31 89 23 106/63 93 09/25/21 20:00 85 20 122/51 L 96 09/25/21 23:14 72 23 92/50 L 99 09/25/21 20:58 91 H 17 123/66 93 09/25/21 20:57 09/25/21 20:51 98.4 F 102 H 22 106/63 96 09/25/21 17:23 09/25/21 16:31 97.9 F 104 H 17 95/58 L 96 Pulse Ox O2 Del Method O2 Del Method O2 Flow Rate 09/26/21 11:46 Nasal Cannula 6 09/26/21 09:10 09/26/21 09:10 09/26/21 09:00 09/26/21 09:00 09/26/21 08:51 09/26/21 08:51 09/26/21 08:50 09/26/21 08:40 09/26/21 08:40 09/26/21 08:30 09/26/21 08:30 09/26/21 08:20 09/26/21 08:20 09/26/21 08:10 09/26/21 08:10 09/26/21 08:00 09/26/21 08:00 09/26/21 07:50 09/26/21 07:50 09/26/21 07:40 09/26/21 07:40 09/26/21 07:30 09/26/21 07:30 09/26/21 07:20 09/26/21 07:20 09/26/21 07:10 09/26/21 07:10 09/26/21 07:00 09/26/21 07:00 09/26/21 06:50 09/26/21 06:50 09/26/21 06:40 Nasal Cannula 2 09/26/21 06:30 Nasal Cannula 2 09/26/21 06:20 Nasal Cannula 2 09/26/21 06:10 Nasal Cannula 2 09/26/21 06:00 Nasal Cannula 2 09/26/21 05:50 Nasal Cannula 2 09/26/21 05:40 Nasal Cannula 2 09/26/21 05:30 Nasal Cannula 2 09/26/21 05:20 Nasal Cannula 2 09/26/21 05:10 Nasal Cannula 2 09/26/21 05:00 Nasal Cannula 2 09/26/21 04:50 Nasal Cannula 2 09/26/21 04:40 Nasal Cannula 2 09/26/21 04:30 Nasal Cannula 2 09/26/21 04:20 Nasal Cannula 2 09/26/21 04:10 Nasal Cannula 2 09/26/21 04:00 Nasal Cannula 2 09/26/21 03:50 Nasal Cannula 2 09/26/21 03:40 Nasal Cannula 2 09/26/21 03:30 Nasal Cannula 2 09/26/21 03:21 Nasal Cannula 2 09/26/21 03:10 Nasal Cannula 2 09/26/21 03:00 Nasal Cannula 2 09/26/21 02:50 Nasal Cannula 2 09/26/21 02:40 Nasal Cannula 2 09/26/21 02:30 Nasal Cannula 2 09/26/21 02:20 Nasal Cannula 2 09/26/21 02:00 Nasal Cannula 2 09/26/21 01:50 Nasal Cannula 2 09/26/21 01:36 Nasal Cannula 2 09/26/21 01:20 Nasal Cannula 2 09/26/21 01:10 Nasal Cannula 2 09/26/21 01:00 Nasal Cannula 2 09/26/21 00:50 Nasal Cannula 2 09/26/21 00:40 Nasal Cannula 2 09/26/21 00:30 Nasal Cannula 2 09/26/21 00:20 Nasal Cannula 2 09/26/21 00:10 Nasal Cannula 2 09/26/21 00:00 Nasal Cannula 2 09/25/21 23:50 Nasal Cannula 2 09/25/21 23:40 Nasal Cannula 2 09/25/21 23:30 Nasal Cannula 2 09/25/21 23:20 Room Air 09/25/21 23:12 Room Air 09/25/21 23:00 Room Air 09/25/21 22:58 Room Air 09/25/21 22:30 Room Air 09/25/21 22:22 Room Air 09/25/21 22:20 Room Air 09/25/21 22:00 Room Air 09/25/21 21:30 Room Air 09/25/21 21:00 Room Air 09/25/21 20:58 Room Air 09/25/21 20:31 Room Air 09/25/21 20:00 Room Air 09/25/21 23:14 Nasal Cannula 3 09/25/21 20:58 Room Air 09/25/21 20:57 93 Room Air 09/25/21 20:51 Room Air 09/25/21 17:23 Room Air 09/25/21 16:31 Room Air Cardiovascular RRR, no murmur, no edema Respiratory normal respiratory effort, lungs clear to auscultation Pre-Sedation Airway Assessment Smoking Status: Unknown if ever smoked Hx Sleep Apnea: No Hx Difficult Intubation: No Short, Thick Neck: No Thyromental Distance: > or= 3.5 Finger Breadths Oral Cavity: + WNL Mallampati Class: II ASA: ASA3 NPO Status Date of Last Intake of Fluids: 09/25/21 Time of Last Intake of Fluids: 23:55 Date of Last Intake of Solid Food: 09/25/21 Time of Last Intake of Solid Foods: 23:55 Procedure Planning Contraindications for Sedation: none Current Medications Reviewed: Yes Notes The planned sedation has been discussed with the patient. Informed Consent was obtained. I have identified the patient, determined the appropriateness of sedation and have assessed the patient immediately prior to the procedure. All medicine(s) and interventions are by my order.
--- NOTE | 2021-09-26 13:06 | Post Anesthesia Assessment ---
Date of Service September 26, 2021 Post Sedation Assessment Vital Signs Temp Pulse Pulse Resp BP BP Pulse Ox 09/26/21 11:46 62 16 137/59 L 100 09/26/21 09:10 61 14 09/26/21 09:10 102/50 L 09/26/21 09:00 61 20 09/26/21 09:00 116/44 L 09/26/21 08:51 120/50 L 09/26/21 08:51 67 14 100 09/26/21 08:50 73 16 100 09/26/21 08:40 60 18 09/26/21 08:40 99/40 L 09/26/21 08:30 60 19 09/26/21 08:30 99/41 L 09/26/21 08:20 61 19 09/26/21 08:20 100/41 L 09/26/21 08:10 61 24 09/26/21 08:10 114/50 L 09/26/21 08:00 78 15 09/26/21 08:00 120/59 L 09/26/21 07:50 60 17 100 09/26/21 07:50 108/40 L 09/26/21 07:40 60 17 100 09/26/21 07:40 101/42 L 09/26/21 07:30 60 18 100 09/26/21 07:30 101/44 L 09/26/21 07:20 61 16 100 09/26/21 07:20 103/42 L 09/26/21 07:10 60 16 09/26/21 07:10 97/40 L 09/26/21 07:00 69 99 09/26/21 07:00 103/50 L 09/26/21 06:50 63 17 99 09/26/21 06:50 103/49 L 09/26/21 06:40 61 17 101/45 L 100 09/26/21 06:30 62 17 111/46 L 100 09/26/21 06:20 61 17 91/44 L 100 09/26/21 06:10 61 17 113/47 L 100 09/26/21 06:00 62 19 102/47 L 99 09/26/21 05:50 61 21 93/43 L 99 09/26/21 05:40 62 17 90/43 L 99 09/26/21 05:30 60 21 97/44 L 99 09/26/21 05:20 63 20 83/40 L 100 09/26/21 05:10 63 20 88/42 L 99 09/26/21 05:00 61 18 79/43 L 99 09/26/21 04:50 62 21 89/40 L 99 09/26/21 04:40 61 20 83/42 L 99 09/26/21 04:30 61 20 81/42 L 99 09/26/21 04:20 61 15 80/40 L 99 09/26/21 04:10 62 20 87/38 L 99 09/26/21 04:00 62 19 84/39 L 99 09/26/21 03:50 61 19 88/41 L 99 09/26/21 03:40 61 19 81/44 L 99 09/26/21 03:30 62 17 96/40 L 100 09/26/21 03:21 64 12 114/51 L 100 09/26/21 03:10 19 100/39 L 96 09/26/21 03:00 62 19 92/36 L 96 09/26/21 02:50 63 20 89/41 L 96 09/26/21 02:40 63 19 85/39 L 97 09/26/21 02:30 64 18 81/36 L 97 09/26/21 02:20 63 21 90/44 L 96 09/26/21 02:00 63 19 83/37 L 98 09/26/21 01:50 66 21 84/37 L 98 09/26/21 01:36 65 18 101/50 L 98 09/26/21 01:20 63 20 84/43 L 99 09/26/21 01:10 64 20 84/40 L 99 09/26/21 01:00 62 15 87/45 L 99 09/26/21 00:50 63 18 89/39 L 99 09/26/21 00:40 63 20 95/42 L 96 09/26/21 00:30 63 19 88/41 L 96 09/26/21 00:20 63 19 89/41 L 96 09/26/21 00:10 81 21 102/47 L 99 09/26/21 00:00 69 20 90/47 L 99 09/25/21 23:50 66 20 95/46 L 100 09/25/21 23:40 77 17 86/47 L 97 09/25/21 23:30 75 20 99/51 L 99 09/25/21 23:20 80 18 95/52 L 93 09/25/21 23:12 80 20 92/50 L 99 09/25/21 23:00 81 19 93/47 L 99 09/25/21 22:58 84 20 100/52 L 99 09/25/21 22:30 77 20 113/51 L 99 09/25/21 22:22 80 21 100/56 L 92 09/25/21 22:20 83 23 88/50 L 93 09/25/21 22:00 83 19 84/48 L 95 09/25/21 21:30 88 22 125/53 L 95 09/25/21 21:00 97 H 20 122/65 97 09/25/21 20:58 90 17 123/66 90 09/25/21 20:31 89 23 106/63 93 09/25/21 20:00 85 20 122/51 L 96 09/25/21 23:14 72 23 92/50 L 99 09/25/21 20:58 91 H 17 123/66 93 09/25/21 20:57 09/25/21 20:51 98.4 F 102 H 22 106/63 96 09/25/21 17:23 09/25/21 16:31 97.9 F 104 H 17 95/58 L 96 Pulse Ox O2 Del Method O2 Del Method O2 Flow Rate 09/26/21 11:46 Nasal Cannula 6 09/26/21 09:10 09/26/21 09:10 09/26/21 09:00 09/26/21 09:00 09/26/21 08:51 09/26/21 08:51 09/26/21 08:50 09/26/21 08:40 09/26/21 08:40 09/26/21 08:30 09/26/21 08:30 09/26/21 08:20 09/26/21 08:20 09/26/21 08:10 09/26/21 08:10 09/26/21 08:00 09/26/21 08:00 09/26/21 07:50 09/26/21 07:50 09/26/21 07:40 09/26/21 07:40 09/26/21 07:30 09/26/21 07:30 09/26/21 07:20 09/26/21 07:20 09/26/21 07:10 09/26/21 07:10 09/26/21 07:00 09/26/21 07:00 09/26/21 06:50 09/26/21 06:50 09/26/21 06:40 Nasal Cannula 2 09/26/21 06:30 Nasal Cannula 2 09/26/21 06:20 Nasal Cannula 2 09/26/21 06:10 Nasal Cannula 2 09/26/21 06:00 Nasal Cannula 2 09/26/21 05:50 Nasal Cannula 2 09/26/21 05:40 Nasal Cannula 2 09/26/21 05:30 Nasal Cannula 2 09/26/21 05:20 Nasal Cannula 2 09/26/21 05:10 Nasal Cannula 2 09/26/21 05:00 Nasal Cannula 2 09/26/21 04:50 Nasal Cannula 2 09/26/21 04:40 Nasal Cannula 2 09/26/21 04:30 Nasal Cannula 2 09/26/21 04:20 Nasal Cannula 2 09/26/21 04:10 Nasal Cannula 2 09/26/21 04:00 Nasal Cannula 2 09/26/21 03:50 Nasal Cannula 2 09/26/21 03:40 Nasal Cannula 2 09/26/21 03:30 Nasal Cannula 2 09/26/21 03:21 Nasal Cannula 2 09/26/21 03:10 Nasal Cannula 2 09/26/21 03:00 Nasal Cannula 2 09/26/21 02:50 Nasal Cannula 2 09/26/21 02:40 Nasal Cannula 2 09/26/21 02:30 Nasal Cannula 2 09/26/21 02:20 Nasal Cannula 2 09/26/21 02:00 Nasal Cannula 2 09/26/21 01:50 Nasal Cannula 2 09/26/21 01:36 Nasal Cannula 2 09/26/21 01:20 Nasal Cannula 2 09/26/21 01:10 Nasal Cannula 2 09/26/21 01:00 Nasal Cannula 2 09/26/21 00:50 Nasal Cannula 2 09/26/21 00:40 Nasal Cannula 2 09/26/21 00:30 Nasal Cannula 2 09/26/21 00:20 Nasal Cannula 2 09/26/21 00:10 Nasal Cannula 2 09/26/21 00:00 Nasal Cannula 2 09/25/21 23:50 Nasal Cannula 2 09/25/21 23:40 Nasal Cannula 2 09/25/21 23:30 Nasal Cannula 2 09/25/21 23:20 Room Air 09/25/21 23:12 Room Air 09/25/21 23:00 Room Air 09/25/21 22:58 Room Air 09/25/21 22:30 Room Air 09/25/21 22:22 Room Air 09/25/21 22:20 Room Air 09/25/21 22:00 Room Air 09/25/21 21:30 Room Air 09/25/21 21:00 Room Air 09/25/21 20:58 Room Air 09/25/21 20:31 Room Air 09/25/21 20:00 Room Air 09/25/21 23:14 Nasal Cannula 3 09/25/21 20:58 Room Air 09/25/21 20:57 93 Room Air 09/25/21 20:51 Room Air 09/25/21 17:23 Room Air 09/25/21 16:31 Room Air Recovery Score Activity: Moves 4 extremities Respiration: Deep Breath/Cough Circulation: +/-20% PreAnes Value Consciousness: Fully Awake Oxygen Saturation: O2 needed for >90% Discharge Sedation Level of Care: Fast Track Phase II Post Sedation Plan On clinical assessment, the patient appears to have tolerated the sedation without complications. Patient is recovering as anticipated. Patient will continue to be monitored by nursing and may be discharged when sedation discharge criteria are met per below protocol. Upon Completions of procedure up to 15 minutes continue every 5 minute vital signs and the P.A.R. score; then discharge to a Phase I or Fast Track to Phase II per the following guidelines: * Discharge Patient to appropriate Phase II area if PAR is 8 or greater or return to pre- procedure baseline. The post - procedure orders will be as directed. * If PAR score is less than 8 or not return to pre-procedure baseline then patient will follow Phase I monitoring till PAR is reached for Phase II. The Phase I may be done in procedure room or may call to secure a Phase I area. * If naloxone or flumazenil are used for reversal, hold in Phase I for continued monitoring from when last reversal dose was given for a minimum of 60 minutes or longer pending the nurse and/or physician discretion of patient condition before discharge to Phase II. Please call the Sedation Physician to re-evaluate and complete post-note for discharge to Phase II area. Do NOT discharge from procedure sedation or Phase 1 until post- sedation evaluation note is complete by procedure /sedation MD Sedation Discharge Instructions to be given to the patient at discharge to home.
--- NOTE | 2021-09-26 14:08 | Communication Note ---
Date of Service: September 26, 2021 Cardiac catheterization films reviewed with Dr. Dupont, no coronary culprit for patient's chest heaviness. I called and updated the patient's and daughter with regards to the results. With a coronary culprit excluded, that is very reassuring with regards to the acuity/potential dangerousness of her chest heavy episodes. This brings us back to the previous impression that the patient does not tolerate atrial fibrillation, with highly symptomatic atrial fibrillation episodes, and even after she converts out of the atrial fibrillation, she seems to have hours of prolonged feelings of debilitating fatigue and anxiety. Amiodarone has been effective since 2020 overall, but now she is noted to have hyperthyroidism, and therefore amiodarone at a dose of 100 mg daily has not been effective as of recently, and in order for her thyroid indices to return to normal, it might be prudent to avoid this medication. The patient has a chronic left bundle branch block and dual-chamber permanent pacemaker. Her lumbee rhythm is sinus rhythm with a left bundle branch block and historically, she has had several EKG tracings over the recent admissions with QT intervals of just around 500 ms, in the setting of left bundle branch block. At the time. EKG performed today at 1023, her corrected QT interval was measured to be 424 ms in the setting of sinus rhythm, atrial pacing, lumbee QRS complex with left bundle branch block, QRS duration 142 ms, QTC 4 to 24 ms. Her GFR is calculated by the Cockcroft-Gault formula is 47.66 mL/min/m. Future considerations include washout of amiodarone and consideration of sotalol or even dofetilide. I called her outpatient pharmacy and her [id number] cost for a 1 month supply of dofetilide would be $11.60. As previously noted, treatment with increasing doses of beta-blockers or calcium channel blockers is limited by her relative hypotension. 1 potential option would be consideration of an AV junction ablation. I do however have concerns that perhaps part of her symptoms with regards to the atrial fibrillation or the loss of atrial related preload, and therefore an AV junction ablation would make such symptoms worse although it would help her sensation of feeling the racing heart rate. I had a cb conversation with the patient's daughter, Marianela, she is aware of the patient's age, and is in agreement with me that we need to find a strategy to palliate her symptoms in the short-term, taking her goals of care in mind in the setting of being 89 years old and that short-term palliation of her symptoms is the most significant priority.
--- NOTE | 2021-09-26 15:28 | Cardiac Catheterization ---
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 Cardiac Status Clinical evaluation leading to the procedure CAD Presenation: Non STEMI Anginal Classification: CCS IV Diagnostic Physicians Name: Chalo Dupont MD Closure Device Recommendations: Medical Therapy and/or Counseling Cardiac Cath Procedure Full Procedure Date September 26, 2021 Pre-Procedure Diagnosis Pre-Procedure Diagnosis: Non STEMI AUC Score AUC Score: 8 Post-Procedure Diagnosis Post-Procedure Diagnosis: Mild CAD and Normal Intracardiac Pressures Procedure(s) Performed Procedure(s) Performed: Coronary Angiography and Left Heart Cath 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 Small D1 with luminal irregularities. Medium D2 without significant disease. Circumflex -medium caliber, no significant disease RCA -dominant, large caliber, mildly calcified, no significant disease LVEDP -14 Arterial Closure: TR band Summary: 1. Mild nonobstructive coronary artery disease - 20% ostial left main 20 to 30% mid LAD. Small distal LAD with diffuse disease 2. Normal intracardiac filling pressure Recommendations: Continued ASCVD risk factor modification per Dr. Walsh Hemodynamics Rest Ao:: 109/49/84 Final Ao: 106/44/67 LV: 118/14 Recommendations Recommendations: Medical Therapy and/or Counseling Specimens Specimens: None Radiation Exposure (mGy) 288 Contrast (mls) 15 Anesthesia moderate 3071-2629 Procedural Complication(s) None Disposition PCU I attest to the content of the Intraoperative Record and any orders documented therein. Any exceptions are noted below. [facility] Card Cath Procedure Codes Cardiac Catheterization Procedure 1: Cardiovascular Cath Procedures: 98067 Coronaries and LHC (+/-LV) Moderate Sedation Procedure 1: Sedation/Anesthesia: 65216 Mod Sedation by the same physician;Init15 Min Child Age 5 & Up PG Care Time/CCT Total # of Minutes Spent Total Time Spent with Patient: Total time spent is greater than 50% in coordination of care (as documented) at patient's floor/unit and/or counseling patient:
[2021-09-26] MEDS: DIGOXIN 0.125 MG TAB PO SCH (16:52)
[2021-09-26] MEDS: METOPROLOL TARTRATE 25 MG TAB PO SCH ×2 (17:44→20:49)
[2021-09-26] MEDS: APIXABAN 2.5 MG TAB PO SCH (20:46)
[2021-09-26] MEDS: ATORVASTATIN 10 MG TAB PO SCH (20:47)
[2021-09-26] MEDS: MELATONIN 3 MG TAB PO SCH (20:48)
[2021-09-26] MEDS: MIRTAZAPINE TAB 15 MG TAB PO SCH (20:50)
[2021-09-26] MEDS: cefTRIAXone SODIUM 2,000 MG in DEXTROSE 5% 50 ML IV SCH (21:06)
--- NOTE | 2021-09-27 06:01 | Electrocardiogram Report ---
Test Reason : Blood Pressure : / mmHG Vent. Rate : 100 BPM Atrial Rate : 357 BPM P-R Int : 000 ms QRS Dur : 134 ms QT Int : 364 ms P-R-T Axes : 000 -43 097 degrees QTc Int : 469 ms Atrial fibrillation Left axis deviation Left bundle branch block Abnormal ECG When compared with ECG of 23-SEP-2021 12:04, Atrial fibrillation has replaced Sinus rhythm T wave amplitude has decreased in Anterior leads Confirmed by Woodrow Berrios ([id number]) on 09/27/2021 6:01:38 AM Referred By: REFERRED SELF Confirmed By:Woodrow Berrios
--- NOTE | 2021-09-27 06:04 | Electrocardiogram Report ---
Test Reason : Blood Pressure : / mmHG Vent. Rate : 101 BPM Atrial Rate : 113 BPM P-R Int : 000 ms QRS Dur : 132 ms QT Int : 378 ms P-R-T Axes : 000 -42 105 degrees QTc Int : 490 ms Poor data quality, interpretation may be adversely affected Atrial fibrillation with rapid ventricular response Left axis deviation Left bundle branch block Abnormal ECG When compared with ECG of 25-SEP-2021 17:07, No significant change was found Confirmed by Woodrow Berrios ([id number]) on 09/27/2021 6:04:22 AM Referred By: REFERRED SELF Confirmed By:Woodrow Berrios
[2021-09-27 06:41] LABS: Hematocrit (blood only) 34.7 % (34.1-44.9); Hemoglobin 11.7 g/dl (12.0-16.0); Mean Corpuscular Hemoglobin 28.1 pg (25.0-34.0); Mean Corpuscular Hgb Conc 33.7 g/dL (32.0-36.0); Mean Corpuscular Volume 83.4 fL (80.0-100.0); Mean Platelet Volume 9.7 fL (9.4-12.3); Platelet Count 239 K/uL (130-400); RDW Coefficient of Variation 12.9 % (11.5-14.5); Red Blood Count 4.16 M/uL (3.93-5.22); White Blood Count 5.97 K/ul (4.8-10.8)
[2021-09-27 07:35] LABS: BUN Creatinine Ratio 31.5 (10-20); Calcium 8.9 mg/dl (8.5-10.1); Creatinine Clr Calc Pharmacy 45.1 ml/min; Est GFR (African American) 84.6 ml/min; Potassium 3.9 mmol/L (3.5-5.1)
[2021-09-27] MEDS: PANTOprazole 40 MG TAB PO SCH (08:38)
[2021-09-27] MEDS: METOPROLOL TARTRATE 25 MG TAB PO SCH (08:38)
[2021-09-27] MEDS: MAGNESIUM OXIDE 400 MG TAB PO SCH (08:39)
[2021-09-27] MEDS: methIMAzole 5 MG TABLET PO SCH ×3 (08:39→20:13)
[2021-09-27] MEDS: predniSONE 20 MG TAB PO SCH (08:40)
[2021-09-27] MEDS: APIXABAN 2.5 MG TAB PO SCH ×2 (08:40→20:11)
[2021-09-27 09:55] LABS: Appearance Urine Clear (Clear); Bilirubin Urine Negative (Negative); Blood Urine Negative (Negative); Color Urine Yellow; Glucose Urine UA Negative (Negative); Ketones Urine Negative (Negative); Leukocyte Esterase Urine Negative (Negative); Nitrite Urine Negative (Negative); Protein Urine Negative (Negative); Specific Gravity Urine 1.018 (1.000-1.030); Urobilinogen Urine Negative (Negative)
--- NOTE | 2021-09-27 11:17 | Cardiology Progress Note ---
Date of Service September 27, 2021 Assessment & Plan (1) NSTEMI (non-ST elevated myocardial infarction): (2) Paroxysmal atrial fibrillation: (3) LBBB (left bundle branch block): (4) Hyperthyroidism: Plan: (1) NSTEMI (non-ST elevated myocardial infarction): -Cardiac catheterization performed 09/26/2021 revealed minimal nonobstructive coronary heart disease, 20% ostial left main, 30% mid LAD stenosis, distal LAD small vessel with diffuse disease toward the apex, no coronary artery culprit/PCI indicated. -In retrospect, I believe her elevation in troponin was due to demand ischemia in the setting of atrial fibrillation, mildly elevated ventricular rates. -Continue medication therapy. -Atorvastatin added this admission -Given shortness of breath/hypoxia, and did receive IV fluid/contrast, proceed with one-time dose of furosemide 10 mg x 1. Small dose chosen given patient's age, size, frailty. (2) Paroxysmal atrial fibrillation: -Highly symptomatic paroxysmal atrial fibrillation, with noted sensation of feeling her heart racing when she has the episodes, and then for hours thereafter she has debilitating fatigue, chest pressure. -Atrial fibrillation episodes perhaps occurring more frequently as of recently due to hyperthyroidism and UTI. Her thyroid function indices had been normal in Jun, 2021, abnormal September,. -Titrate AV nate blockers as blood pressure permits. Has pacemaker for heart rate support. -Metoprolol succinate increased to 75 mg twice daily (recent home dose 50 mg twice daily). -Continue with digoxin 0.125 mg daily. -Add short acting diltiazem 30 mg twice daily 09/27/2021, with plans to titrate, transition to extended release as tolerated (3) LBBB (left bundle branch block): -Chronic (4) Hyperthyroidism: -Continue Tapazole, prednisone. -Tapazole just started this week, and has not had much time to take effect. (5) UTI -Sensitive Klebsiella and Proteus. -Agree with cefazolin 1000 mg IV every 8 hours, diuresis necessary to keep intake/output even Amiodarone discontinued due to hyperthyroidism Anticipate need for physical therapy, and perhaps inpatient rehabilitation and the patient seems to be amenable to this plan. She does not have any help at home, and her is 89 years old frail with health problems of his own. daughter, Marianela , who lives in [place] ,number [phone] Dr Joseph rounding 09/28/21. Admission and Anticipated Discharge Date Admission Date: September 25, 2021 Subjective Patient is seen in cardiology follow-up, ICU room 111. She is feeling relatively well this morning. No additional chest discomfort, does note some degree of shortness of breath and most recent pulse oximetry reading was 85% on room air. Patient remains in sinus rhythm, atrial pacing, [place] left bundle branch block noted on telemetry. Review of Systems Review of Systems: All systems reviewed & are unremarkable except as noted in HPI & below Physical Exam Physical Exam: Temp Pulse Resp BP Pulse Ox O2 Del Method O2 Flow Rate 36.4 C L 65 21 131/62 85 L 6 09/27/21 08:36 09/27/21 09:00 09/27/21 08:30 09/27/21 08:00 09/27/21 08:30 09/27/21 09:00 09/26/21 11:46 Constitutional: + acute distress and + thin Respiratory: normal respiratory effort, lungs clear to auscultation Cardiovascular: RRR, no murmur, no edema Gastrointestinal (Abdomen): normal bowel sounds, soft, nontender, no hepatosplenomegaly Neurologic: PERRL, EOMI, accommodation nl, no face palsy, no dysarthria Results & Data ([facility]) Laboratory Results CBC 09/27/21 Range/Units 06:24 WBC 5.97 (4.8-10.8) K/ul RBC 4.16 (3.93-5.22) M/uL Hgb 11.7 L (12.0-16.0) g/dl Hct 34.7 (34.1-44.9) % Plt Count 239 (130-400) K/uL Comprehensive Metabolic Panel 09/27/21 Range/Units 06:24 Sodium 139 (136-145) mmol/L Potassium 3.9 (3.5-5.1) mmol/L Chloride 106 (98-107) mmol/L Carbon Dioxide 29 (21-32) mmol/L BUN 23 (6-23) mg/dl Creatinine 0.73 (0.6-1.2) mg/dl Glucose 96 (70-99(Fasting)) mg/dl Calcium 8.9 (8.5-10.1) mg/dl Intake and Output 08/01/0709/27/21 09/27/21 22:59 06:59 14:59 Intake Total 397.333 / 530.793 70 / 530.793 Balance 397.333 / 530.793 70 / 530.793 Intake: IV 397.333 / 530.793 70 / 530.793 Heparin Sodium/Dextrose 25,000 397.333 / 397.333 units In 500 ml @ 0 UNITS/HR IV .Q0M [facility] Rx#:[id number] cefTRIAXone SODIUM 2,000 mg In 70 / 70 Dextrose 5% 50 ml @ 100 mls/hr IV Q24H [facility] Rx#:[id number] Other: # Unmeasured Voids 2 Weight 57.3 kg Weight Measurement Method Built in [facility]
[2021-09-27] MEDS ORDERED: FUROSEMIDE INJ 20 MG/2 ML VIAL IV ONE (11:30)
[2021-09-27] MEDS: dilTIAZem HCL 30 MG TAB PO SCH ×2 (12:36→20:13)
[2021-09-27] MEDS: METOPROLOL SUCC 25MG EXT REL TAB PO SCH ×2 (12:36→20:15)
[2021-09-27] MEDS: DIGOXIN 0.125 MG TAB PO SCH (16:26)
[2021-09-27] MEDS: ceFAZolin 1000MG 1,000 MG/7.5 ML SYR IV SCH (20:02)
[2021-09-27] MEDS: ATORVASTATIN 10 MG TAB PO SCH (20:12)
[2021-09-27] MEDS: MIRTAZAPINE TAB 15 MG TAB PO SCH (20:14)
[2021-09-27] MEDS: MELATONIN 3 MG TAB PO SCH (20:17)
--- NOTE | 2021-09-27 21:44 | Electrocardiogram Report ---
Test Reason : Blood Pressure : / mmHG Vent. Rate : 080 BPM Atrial Rate : 091 BPM P-R Int : 000 ms QRS Dur : 142 ms QT Int : 398 ms P-R-T Axes : 000 -46 147 degrees QTc Int : 459 ms Atrial fibrillation Left axis deviation Left bundle branch block Abnormal ECG When compared with ECG of 25-SEP-2021 19:20, No significant change Confirmed by Woodrow Berrios ([id number]) on 09/27/2021 9:43:30 PM Referred By: REFERRED SELF Confirmed By:Woodrow Berrios
[2021-09-27] MEDS ORDERED: POTASSIUM CHLORIDE CRTAB 20 MEQ TABCR PO STA (21:52)
--- NOTE | 2021-09-27 22:28 | Electrocardiogram Report ---
Test Reason : Blood Pressure : / mmHG Vent. Rate : 064 BPM Atrial Rate : 064 BPM P-R Int : 154 ms QRS Dur : 136 ms QT Int : 414 ms P-R-T Axes : 072 -48 118 degrees QTc Int : 427 ms Normal sinus rhythm Possible Left atrial enlargement Left axis deviation Left bundle branch block Abnormal ECG When compared with ECG of 25-SEP-2021 22:21, Sinus rhythm has replaced Atrial fibrillation Confirmed by Woodrow Berrios ([id number]) on 09/27/2021 10:27:42 PM Referred By: REFERRED SELF Confirmed By:Woodrow Berrios
--- NOTE | 2021-09-27 22:30 | Electrocardiogram Report ---
Test Reason : Blood Pressure : / mmHG Vent. Rate : 060 BPM Atrial Rate : 060 BPM P-R Int : 122 ms QRS Dur : 142 ms QT Int : 424 ms P-R-T Axes : 066 -47 125 degrees QTc Int : 424 ms Atrial-paced rhythm Left axis deviation Left bundle branch block Abnormal ECG When compared with ECG of 26-SEP-2021 10:01, Electronic atrial pacemaker has replaced Sinus rhythm Confirmed by Woodrow Berrios ([id number]) on 09/27/2021 10:29:38 PM Referred By: REFERRED SELF Confirmed By:Woodrow Berrios
[2021-09-28] MEDS: ceFAZolin 1000MG 1,000 MG/7.5 ML SYR IV SCH ×3 (04:56→20:26)
--- NOTE | 2021-09-28 05:46 | Electrocardiogram Report ---
Test Reason : Blood Pressure : / mmHG Vent. Rate : 063 BPM Atrial Rate : 063 BPM P-R Int : 154 ms QRS Dur : 134 ms QT Int : 536 ms P-R-T Axes : 059 -48 127 degrees QTc Int : 548 ms Normal sinus rhythm Possible Left atrial enlargement Left axis deviation Left bundle branch block Abnormal ECG When compared with ECG of 26-SEP-2021 10:23, Sinus rhythm has replaced Electronic atrial pacemaker Confirmed by Woodrow Berrios ([id number]) on 09/28/2021 5:46:02 AM Referred By: REFERRED SELF Confirmed By:Woodrow Berrios
[2021-09-28 07:17] LABS: BUN Creatinine Ratio 34.8 (10-20); Calcium 9.6 mg/dl (8.5-10.1); Creatinine Clr Calc Pharmacy 47.7 ml/min; Est GFR (African American) 89.5 ml/min; Est GFR (Non-African American) 77.2 ml/min; Potassium 4.2 mmol/L (3.5-5.1)
[2021-09-28] MEDS: METOPROLOL SUCC 25MG EXT REL TAB PO SCH ×2 (09:09→20:21)
[2021-09-28] MEDS: PANTOprazole 40 MG TAB PO SCH (09:10)
[2021-09-28] MEDS: methIMAzole 5 MG TABLET PO SCH ×3 (09:10→20:19)
[2021-09-28] MEDS: predniSONE 20 MG TAB PO SCH (09:10)
[2021-09-28] MEDS: APIXABAN 2.5 MG TAB PO SCH ×2 (09:11→20:20)
[2021-09-28] MEDS: dilTIAZem HCL 30 MG TAB PO SCH ×2 (09:11→20:19)
[2021-09-28] MEDS: MAGNESIUM OXIDE 400 MG TAB PO SCH (09:16)
--- NOTE | 2021-09-28 11:17 | Cardiology Progress Note ---
Date of Service September 28, 2021 Assessment & Plan (1) Paroxysmal atrial fibrillation: (2) Elevated troponin I level: (3) LBBB (left bundle branch block): (4) UTI (urinary tract infection): (5) Hyperthyroidism: Plan Telemetry reveals periods of rate controlled atrial fibrillation as well as sinus rhythm. Low-dose oral diltiazem added yesterday. Metoprolol titrated to 75 mg twice daily during hospitalization. Also treated with digoxin 0.125 mg daily. A cardiac catheterization was performed 09/26/2021 due to ongoing chest discomfort and elevated troponin. Angiography revealed mild to mod nonobstructive coronary disease. Recommend continuing rate control strategy with metoprolol, digoxin, and diltiazem at this time. Monitor telemetry. Consider titration of diltiazem to 30 mg 3 times daily during hospitalization. Continue anticoagulation. Continue Tapazole and prednisone for treatment of hyperthyroidism. Amiodarone discontinued. Antibiotics as per internal medicine for treatment of Klebsiella/Proteus urinary tract infection. Admission and Anticipated Discharge Date Admission Date: September 25, 2021 Subjective Patient seen and examined at the bedside. Reports palpitations overnight. States "I had one of my episodes". Telemetry reviewed demonstrating intermittent paroxysmal atrial fibrillation as well as sinus rhythm. Heart rate controlled during periods of A. fib with a ventricular response in the 70s. Patient denies recurrent chest heaviness or tightness. Review of Systems Review of Systems: All systems reviewed & are unremarkable except as noted in Subjective Physical Exam Constitutional: well nourished; no acute distress Respiratory: no respiratory distress and no labored breathing Auscultation: no crackles, no rales, no rhonchi and no wheezes Cardiovascular: Rate/Rhythm: regular rate and regular rhythm Heart Sounds: normal S1, normal S2 and + murmur (2/6 medium pitched mid systolic murmur heard best at the base) Vessels: radial pulses present; no JVD and no carotid bruit Extremities: no edema Gastrointestinal (Abdomen): Inspection/Auscultation: normal bowel sounds; abdomen not distended Percussion/Palpation: abdomen soft; abdomen nontender, no guarding and abdomen not rigid Neurologic: CN's II-XI intact bilaterally and moves all extremities; no focal motor deficits Motor/Sensory: no tremor Psychiatric: A+Ox3, euthymic affect Results & Data ([facility]) Vital Signs (Past 12 Hours) Vital Signs Temp Pulse Resp BP Pulse Ox O2 Del Method 09/28/21 07:41 36.6 C 94 H 19 115/68 96 Room Air 09/28/21 03:41 36.6 C 84 18 114/64 97 Room Air
[2021-09-28] MEDS: MAGNESIUM HYDROXIDE SUSP 30 ML UDC PO PRN (13:52)
[2021-09-28] MEDS: DOCUSATE SODIUM 100 MG CAP PO PRN (13:52)
[2021-09-28] MEDS ORDERED: METOCLOPRAMIDE HCL INJ 5 MG/ML 2 ML VIAL IV PRN (14:41)
[2021-09-28] MEDS: DIGOXIN 0.125 MG TAB PO SCH (17:02)
[2021-09-28] MEDS: ATORVASTATIN 10 MG TAB PO SCH (20:18)
[2021-09-28] MEDS: MIRTAZAPINE TAB 15 MG TAB PO SCH (20:21)
[2021-09-28] MEDS: MELATONIN 3 MG TAB PO SCH (20:26)
--- NOTE | 2021-09-28 22:28 | Hospitalist Progress Note ---
Date of Service September 27, 2021 Assessment & Plan (1) Chest pain: Plan: 89 year old female with history of A fib on Eliquis, CHFpEF, Hyperthyroidism, HTN presenting with weakness. CHEST PAIN ELEVATED TROPONIN Need to r/o ACS Received aspirin 325mg and was started on heparin drip S/P cardiac cath with no major vessel occluded Echo showed left ventricular wall is normal with EF 60- 65% Cardiology on board Heparin drip was discontinued then transition to eliquis Continue statin and metoprolol Clinically stable PAROXYSMAL A FIB rate controlled continue Digoxin metoprolol increased to 75mg BID and Diltiazem 30mg added Amiodarone discontinued Continue Eliquis UTI Urine culture from 09/23/21 growing Proteus and Klebsiella Ceftriaxone 2g IV changed to Cefazolin Plan to transition to PO abx WEAKNESS Mostly due to UTI PT/OT eval Fall precaution Consider inpatient rehab CHF Complaint of SOB lasix 10mg IV given HYPERTHYROIDISM new diagnosis from 2 days ago continue Prednisone, Methimazole ff up with Dr. Lozano in 2 weeks HTN hold Lisinopril as BP on the lower side DVT prophylaxis On Eliquis Code status DNR Disposition may need SNF Admission and Anticipated Discharge Date Admission Date: September 25, 2021 Subjective Patient was seen and evaluated for follow-up of chest pain Lying in bed with no acute distress Currently denies any chest pain, palpitation, dizziness, and fever Review of Systems Review of Systems: All systems reviewed & are unremarkable except as noted in Subjective Physical Exam Physical Exam: General- No acute distress Head- atraumatic Eyes- PERRL, EOMI, ENT- oropharynx clear Neck- supple, no JVD Lungs- clear to auscultation Heart- regular rhythm; no murmur Abdomen- normal bowel sounds, soft, nontender Extremities- no calf tenderness, no hematoma noted in right wrist Neuro- alert, oriented x 3; PERRL, EOMI; no facial palsy; no dysarthria Skin- warm & dry Results & Data Results & Data ([facility]) Vital Signs (Past 12 Hours) Vital Signs Temp Pulse Pulse Resp BP BP Pulse Ox 09/28/21 19:59 36.4 C L 77 20 148/78 H 97 09/28/21 17:02 72 09/28/21 15:26 36.7 C 94 H 22 156/72 H 96 09/28/21 14:02 36.3 C L 88 25 H 120/61 96 09/28/21 12:48 78 09/28/21 12:48 09/28/21 12:03 36.6 C 65 18 111/59 L 97 O2 Del Method 09/28/21 19:59 Room Air 09/28/21 17:02 09/28/21 15:26 Room Air 09/28/21 14:02 Room Air 09/28/21 12:48 09/28/21 12:48 Room Air 09/28/21 12:03 Room Air
--- NOTE | 2021-09-28 22:38 | Hospitalist Progress Note ---
Date of Service September 28, 2021 Assessment & Plan (1) Chest pain: Plan: 89 year old female with history of A fib on Eliquis, CHFpEF, Hyperthyroidism, HTN presenting with weakness. CHEST PAIN ELEVATED TROPONIN Need to r/o ACS Received aspirin 325mg and was started on heparin drip S/P cardiac cath with no major vessel occluded Echo showed left ventricular wall is normal with EF 60- 65% Cardiology on board Heparin drip was discontinued then transition to eliquis Continue statin and metoprolol Clinically stable PAROXYSMAL A FIB rate controlled continue Digoxin metoprolol increased to 75mg BID and continue Diltiazem 30mg BID Amiodarone discontinued Continue Eliquis UTI Urine culture from 09/23/21 growing Proteus and Klebsiella Ceftriaxone 2g IV changed to Cefazolin Plan to transition to PO abx WEAKNESS Mostly due to UTI PT/OT eval Fall precaution Consider inpatient rehab Anxiety Her symptoms seems to related to her anxiety Resume hydroxyzine CHF Complaint of SOB lasix 10mg IV given HYPERTHYROIDISM new diagnosis from 2 days ago continue Prednisone, Methimazole ff up with Dr. Lozano in 2 weeks HTN hold Lisinopril as BP on the lower side DVT prophylaxis On Eliquis Code status DNR Disposition may need SNF Admission and Anticipated Discharge Date Admission Date: September 25, 2021 Subjective Patient was seen and evaluated for follow-up of chest pain Lying in bed with no acute distress pt said that she had a rough night. she said that she is unable to describe what she felt last night Again this afternoon she did not feels well, she said that she felt nauseated and she was shaking what seems to have a panic attack Later I checked on her during lunch, she said that she was doing ok, Denies any chest pain, palpitation, dizziness and SOB Review of Systems Review of Systems: All systems reviewed & are unremarkable except as noted in Subjective Physical Exam Physical Exam: General- No acute distress Head- atraumatic Eyes- PERRL, EOMI, ENT- oropharynx clear Neck- supple, no JVD Lungs- clear to auscultation Heart- regular rhythm; no murmur Abdomen- normal bowel sounds, soft, nontender Extremities- no calf tenderness, no hematoma noted in right wrist Neuro- alert, oriented x 3; PERRL, EOMI; no facial palsy; no dysarthria Skin- warm & dry Results & Data Results & Data ([facility]) Vital Signs (Past 12 Hours) Vital Signs Temp Pulse Pulse Resp BP BP Pulse Ox 09/28/21 19:59 36.4 C L 77 20 148/78 H 97 09/28/21 17:02 72 09/28/21 15:26 36.7 C 94 H 22 156/72 H 96 09/28/21 14:02 36.3 C L 88 25 H 120/61 96 09/28/21 12:48 78 09/28/21 12:48 09/28/21 12:03 36.6 C 65 18 111/59 L 97 O2 Del Method 09/28/21 19:59 Room Air 09/28/21 17:02 09/28/21 15:26 Room Air 09/28/21 14:02 Room Air 09/28/21 12:48 09/28/21 12:48 Room Air 09/28/21 12:03 Room Air
[2021-09-29] MEDS: ceFAZolin 1000MG 1,000 MG/7.5 ML SYR IV SCH ×3 (05:34→21:21)
[2021-09-29 06:26] LABS: Hematocrit (blood only) 37.5 % (34.1-44.9); Hemoglobin 12.5 g/dl (12.0-16.0); Mean Corpuscular Hemoglobin 27.5 pg (25.0-34.0); Mean Corpuscular Hgb Conc 33.3 g/dL (32.0-36.0); Mean Corpuscular Volume 82.4 fL (80.0-100.0); Mean Platelet Volume 9.8 fL (9.4-12.3); Platelet Count 262 K/uL (130-400); RDW Coefficient of Variation 12.9 % (11.5-14.5); RDW Standard Deviation 38.6 fL (36.4-46.3); Red Blood Count 4.55 M/uL (3.93-5.22); White Blood Count 6.31 K/ul (4.8-10.8)
[2021-09-29 06:46] LABS: BUN Creatinine Ratio 36.8 (10-20); Calcium 9.3 mg/dl (8.5-10.1); Creatinine Clr Calc Pharmacy 48.4 ml/min; Est GFR (African American) 89.9 ml/min; Est GFR (Non-African American) 77.6 ml/min; Potassium 4.1 mmol/L (3.5-5.1)
[2021-09-29] MEDS: methIMAzole 5 MG TABLET PO SCH ×3 (08:34→21:18)
[2021-09-29] MEDS: APIXABAN 2.5 MG TAB PO SCH ×2 (08:34→21:18)
[2021-09-29] MEDS: METOPROLOL SUCC 25MG EXT REL TAB PO SCH ×2 (08:34→21:19)
[2021-09-29] MEDS: predniSONE 20 MG TAB PO SCH (08:34)
[2021-09-29] MEDS: PANTOprazole 40 MG TAB PO SCH (08:35)
[2021-09-29] MEDS: dilTIAZem HCL 30 MG TAB PO SCH ×2 (08:35→21:19)
[2021-09-29] MEDS: MAGNESIUM HYDROXIDE SUSP 30 ML UDC PO PRN (08:38)
[2021-09-29] MEDS: MAGNESIUM OXIDE 400 MG TAB PO SCH (08:38)
[2021-09-29] MEDS: DOCUSATE SODIUM 100 MG CAP PO PRN (08:38)
--- NOTE | 2021-09-29 10:51 | Cardiology Progress Note ---
Date of Service September 29, 2021 Assessment & Plan (1) Paroxysmal atrial fibrillation: (2) Elevated troponin I level: (3) LBBB (left bundle branch block): (4) UTI (urinary tract infection): (5) Hyperthyroidism: Plan Sinus rhythm noted on telemetry. Continue metoprolol, diltiazem, and digoxin as previously ordered. Continue chronic anticoagulation. Cardiac catheterization was performed 09/26/2021 due to ongoing chest discomfort and elevated troponin. Angiography revealed mild to mod nonobstructive coronary disease. Continue Tapazole and prednisone for treatment of hyperthyroidism. Amiodarone discontinued. Antibiotics as per internal medicine for treatment of Klebsiella/Proteus urinary tract infection. Consider addition of anxiolytic/antidepressant medication. Admission and Anticipated Discharge Date Admission Date: September 25, 2021 Subjective Feeling well from a cardiovascular perspective today. Sinus rhythm noted on telemetry over the past 24 hours. Nursing reports concern regarding anxiety and panic. Patient denies chest pain or unusual shortness of breath. Offers no new concerns/complaints. Review of Systems Review of Systems: All systems reviewed & are unremarkable except as noted in Subjective Physical Exam Constitutional: well nourished; no acute distress Respiratory: no respiratory distress and no labored breathing Auscultation: no crackles, no rales, no rhonchi and no wheezes Cardiovascular: Rate/Rhythm: regular rate and regular rhythm Heart Sounds: normal S1, normal S2 and + murmur (2/6 medium pitched mid systolic murmur heard best at the base) Vessels: radial pulses present; no JVD and no carotid bruit Extremities: no edema Gastrointestinal (Abdomen): Inspection/Auscultation: normal bowel sounds; abdomen not distended Percussion/Palpation: abdomen soft; abdomen nontender, no guarding and abdomen not rigid Neurologic: CN's II-XI intact bilaterally and moves all extremities; no focal motor deficits Motor/Sensory: no tremor Psychiatric: A+Ox3, euthymic affect Results & Data ([facility]) Vital Signs (Past 12 Hours) Vital Signs Temp Pulse Resp BP Pulse Ox O2 Del Method 09/29/21 08:55 36.5 C 71 17 134/59 L 95 Room Air 09/29/21 03:50 36.4 C L 92 H 14 124/68 97 Room Air 09/28/21 23:13 36.4 C L 77 18 114/53 L 97 Room Air
[2021-09-29] MEDS ORDERED: bisacodyL 5 MG TABEC PO ONE (12:00)
[2021-09-29] MEDS: hydrOXYzine HCl 10 MG TAB PO PRN ×2 (13:06→21:14)
--- NOTE | 2021-09-29 13:35 | Electrocardiogram Report ---
Test Reason : Blood Pressure : / mmHG Vent. Rate : 067 BPM Atrial Rate : 067 BPM P-R Int : 146 ms QRS Dur : 142 ms QT Int : 436 ms P-R-T Axes : 078 -53 101 degrees QTc Int : 460 ms Normal sinus rhythm Left axis deviation Left bundle branch block Abnormal ECG When compared with ECG of 26-SEP-2021 14:56, Nonspecific T wave abnormality no longer evident in Inferior leads T wave inversion no longer evident in Anterior leads QT has shortened Confirmed by Paulo Woodward ([id number]) on 09/29/2021 1:35:07 PM Referred By: REFERRED SELF Confirmed By:Paulo Woodward
--- NOTE | 2021-09-29 14:39 | Hospitalist Progress Note ---
Date of Service September 29, 2021 Assessment & Plan (1) Chest pain: Plan: 89 year old female with history of A fib on Eliquis, CHFpEF, Hyperthyroidism, HTN presenting with weakness. CHEST PAIN ELEVATED TROPONIN Need to r/o ACS Received aspirin 325mg and was started on heparin drip S/P cardiac cath with no major vessel occluded Echo showed left ventricular wall is normal with EF 60- 65% Cardiology on board Heparin drip was discontinued then transition to eliquis Continue statin and metoprolol Clinically stable PAROXYSMAL A FIB rate controlled continue Digoxin metoprolol increased to 75mg BID and continue Diltiazem 30mg BID Amiodarone discontinued Continue Eliquis UTI Urine culture from 09/23/21 growing Proteus and Klebsiella Ceftriaxone 2g IV changed to Cefazolin Plan to transition to PO abx WEAKNESS Mostly due to UTI PT/OT eval Fall precaution Consider inpatient rehab Anxiety Her symptoms seems to related to her anxiety Continue hydroxyzine prn CHF Complaint of SOB Continue monitor for sign of volume overload HYPERTHYROIDISM new diagnosis from 2 days ago continue Prednisone, Methimazole ff up with Dr. Lozano in 2 weeks HTN hold Lisinopril as BP on the lower side DVT prophylaxis On Eliquis Code status DNR Disposition Plan to discharge to rehab Admission and Anticipated Discharge Date Admission Date: September 25, 2021 Subjective Patient was seen and evaluated for follow-up of chest pain Sitting in chair with no acute distress watching TV She said that her main issue now is constipation She said that she feels like if she has a BM that will help her Pt said that she lives with her ( who is 90 yrs) alone and they don't get any help She said that they don't have any family member around, they live in [place] Denies any chest pain, palpitation, dizziness and SOB Review of Systems Review of Systems: All systems reviewed & are unremarkable except as noted in Subjective Physical Exam Physical Exam: General- No acute distress Head- atraumatic Eyes- PERRL, EOMI, ENT- oropharynx clear Neck- supple, no JVD Lungs- clear to auscultation Heart- regular rhythm; no murmur Abdomen- normal bowel sounds, soft, nontender Extremities- no calf tenderness, no hematoma noted in right wrist Neuro- alert, oriented x 3; PERRL, EOMI; no facial palsy; no dysarthria Skin- warm & dry Results & Data Results & Data ([facility]) Vital Signs (Past 12 Hours) Vital Signs Temp Pulse Pulse Resp BP Pulse Ox O2 Del Method 09/29/21 12:02 36.5 C 64 18 119/53 L 98 Room Air 09/29/21 11:13 60 09/29/21 08:55 36.5 C 71 17 134/59 L 95 Room Air 09/29/21 03:50 36.4 C L 92 H 14 124/68 97 Room Air
[2021-09-29] MEDS: DIGOXIN 0.125 MG TAB PO SCH (16:30)
[2021-09-29] MEDS ORDERED: LACTULOSE SYRUP 20 GM/30 ML UDC PO STA (20:06)
[2021-09-29] MEDS ORDERED: hydrOXYzine HCl 10 MG TAB PO STA (20:07)
[2021-09-29] MEDS ORDERED: LACTULOSE SYRUP 10 GM/15 ML BTL 960 ML PO STA (20:28)
[2021-09-29] MEDS ORDERED: LACTULOSE SYRUP 30 GM/45 ML UDP PO STA (20:30)
[2021-09-29] MEDS: MELATONIN 3 MG TAB PO SCH (21:14)
[2021-09-29] MEDS: MIRTAZAPINE TAB 15 MG TAB PO SCH (21:18)
[2021-09-29] MEDS: ATORVASTATIN 10 MG TAB PO SCH (21:19)
[2021-09-30] MEDS: ceFAZolin 1000MG 1,000 MG/7.5 ML SYR IV SCH ×2 (05:09→13:25)
[2021-09-30] MEDS: methIMAzole 5 MG TABLET PO SCH ×3 (08:52→20:33)
[2021-09-30] MEDS: dilTIAZem HCL 30 MG TAB PO SCH ×2 (08:52→20:33)
[2021-09-30] MEDS: PANTOprazole 40 MG TAB PO SCH (08:53)
[2021-09-30] MEDS: APIXABAN 2.5 MG TAB PO SCH ×2 (08:53→20:33)
[2021-09-30] MEDS: predniSONE 20 MG TAB PO SCH (08:53)
[2021-09-30] MEDS: METOPROLOL SUCC 25MG EXT REL TAB PO SCH ×2 (08:53→20:32)
[2021-09-30] MEDS: MAGNESIUM OXIDE 400 MG TAB PO SCH (08:55)
--- NOTE | 2021-09-30 10:54 | Cardiology Progress Note ---
Date of Service September 30, 2021 Assessment & Plan (1) Paroxysmal atrial fibrillation: (2) Elevated troponin I level: (3) LBBB (left bundle branch block): (4) UTI (urinary tract infection): (5) Hyperthyroidism: Plan Patient is an 89-year-old female with complex history which includes problems as noted below 1. Paroxysmal atrial fibrillation with tachybradycardia syndrome status post dual-chamber pacemaker. Patient previously on amiodarone but presents now with thyroid toxicity/hyperthyroidism. Currently in sinus rhythm with occasional episodes of atrial fibrillation but with controlled ventricular response on combination of metoprolol digoxin and diltiazem would continue. Will not initiate antiarrhythmic therapy. Patient appropriately anticoagulated with Eliquis 2. 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 Taper as per endocrinology recommendations 3. Intermittent chest and abdominal pain without obstructive coronary disease by cardiac catheterization Recommendations as above. Would increase activity, PT/OT Admission and Anticipated Discharge Date Admission Date: September 25, 2021 Subjective Patient was seen and examined, chart, medications, telemetry reviewed. She notes abdominal cramping and lower abdominal discomfort last evening which has resolved after bowel movement. Feels better this morning. No sense of tachypalpitations, chest pains, shortness of breath. Heart rates controlled with patient remaining in sinus rhythm Review of Systems Review of Systems: All systems reviewed & are unremarkable except as noted in Subjective Physical Exam Physical Exam: Temp Pulse Resp BP Pulse Ox O2 Del Method O2 Flow Rate 36.4 C L 65 21 131/62 85 L 6 09/27/21 08:36 09/27/21 09:00 09/27/21 08:30 09/27/21 08:00 09/27/21 08:30 09/27/21 09:00 09/26/21 11:46 Constitutional: well nourished and + thin; no acute distress Eyes: PERRL, conjunctivae normal, anicteric sclerae ENMT: external ear and nose normal, oropharynx normal Neck: trachea midline, no thyromegaly Respiratory: normal respiratory effort, lungs clear to auscultation no respiratory distress and no labored breathing Auscultation: no crackles, no rales, no rhonchi and no wheezes Cardiovascular: RRR, no murmur, no edema Rate/Rhythm: regular rate and regular rhythm Heart Sounds: normal S1, normal S2 and + murmur (2/6 medium pitched mid systolic murmur heard best at the base) Vessels: radial pulses present; no JVD and no carotid bruit Extremities: no edema Gastrointestinal (Abdomen): normal bowel sounds, soft, nontender, no hepatosplenomegaly Inspection/Auscultation: normal bowel sounds; abdomen not distended Percussion/Palpation: abdomen soft; abdomen nontender, no guarding and abdomen not rigid Neurologic: PERRL, EOMI, accommodation nl, no face palsy, no dysarthria CN's II-XI intact bilaterally and moves all extremities; no focal motor deficits Motor/Sensory: no tremor Psychiatric: A+Ox3, euthymic affect Results & Data ([facility]) Vital Signs (Past 12 Hours) Vital Signs Temp Pulse Pulse Resp BP BP Pulse Ox 09/30/21 10:31 94 H 09/30/21 07:32 36.8 C 91 H 19 110/55 L 95 09/30/21 00:00 67 09/30/21 03:28 36.7 C 82 16 105/62 96 09/30/21 00:17 36.5 C 73 24 113/49 L 97 O2 Del Method 09/30/21 10:31 09/30/21 07:32 Room Air 09/30/21 00:00 09/30/21 03:28 09/30/21 00:17
[2021-09-30] MEDS: DOCUSATE SODIUM 100 MG CAP PO PRN (13:32)
[2021-09-30] MEDS: DIGOXIN 0.125 MG TAB PO SCH (15:35)
[2021-09-30] MEDS: ATORVASTATIN 10 MG TAB PO SCH (20:33)
[2021-09-30] MEDS: MIRTAZAPINE TAB 15 MG TAB PO SCH (20:33)
[2021-09-30] MEDS: MELATONIN 3 MG TAB PO SCH (20:35)
--- NOTE | 2021-09-30 22:16 | Hospitalist Progress Note ---
Date of Service September 30, 2021 Assessment & Plan (1) Chest pain: Plan: 89 year old female with history of A fib on Eliquis, CHFpEF, Hyperthyroidism, HTN presenting with weakness. CHEST PAIN ELEVATED TROPONIN Need to r/o ACS Received aspirin 325mg and was started on heparin drip S/P cardiac cath with no major vessel occluded Echo showed left ventricular wall is normal with EF 60- 65% Cardiology on board Heparin drip was discontinued then transition to eliquis Continue statin and metoprolol Clinically stable PAROXYSMAL A FIB rate controlled continue Digoxin Continue metoprolol 75mg BID, Diltiazem 30mg BID and digoxin Amiodarone discontinued Continue Eliquis UTI Urine culture from 09/23/21 growing Proteus and Klebsiella Ceftriaxone 2g IV changed to Cefazolin Plan to transition to PO abx WEAKNESS Mostly due to UTI PT/OT eval Fall precaution Consider inpatient rehab Anxiety Her symptoms seems to related to her anxiety Continue hydroxyzine prn CHF Complaint of SOB Continue monitor for sign of volume overload HYPERTHYROIDISM Thyroid toxicity from amiodarone new diagnosis from 2 days ago continue Prednisone, Methimazole ff up with Dr. Lozano in 2 weeks HTN hold Lisinopril as BP on the lower side DVT prophylaxis On Eliquis Code status DNR Disposition Waiting for placement to rehab Admission and Anticipated Discharge Date Admission Date: September 25, 2021 Subjective Patient was seen and examined for follow-up of chest pain Sitting in chair with no acute distress watching TV She said that she feels better She had 2 bowel movement yesterday Denies any chest pain, palpitation, dizziness and SOB Review of Systems Review of Systems: All systems reviewed & are unremarkable except as noted in Subjective Physical Exam Physical Exam: General- No acute distress Head- atraumatic Eyes- PERRL, EOMI, ENT- oropharynx clear Neck- supple, no JVD Lungs- clear to auscultation Heart- regular rhythm; no murmur Abdomen- normal bowel sounds, soft, nontender Extremities- no calf tenderness, no hematoma noted in right wrist Neuro- alert, oriented x 3; PERRL, EOMI; no facial palsy; no dysarthria Skin- warm & dry Results & Data Results & Data ([facility]) Vital Signs (Past 12 Hours) Vital Signs Temp Pulse Pulse Resp BP BP Pulse Ox 09/30/21 19:38 36.4 C L 72 17 131/66 95 09/30/21 15:35 75 09/30/21 15:15 36.5 C 83 26 H 107/62 96 09/30/21 15:02 81 09/30/21 11:40 36.8 C 73 18 96/55 L 95 09/30/21 10:31 94 H O2 Del Method 09/30/21 19:38 Room Air 09/30/21 15:35 09/30/21 15:15 Room Air 09/30/21 15:02 09/30/21 11:40 Room Air 09/30/21 10:31
[2021-10-01] MEDS: methIMAzole 5 MG TABLET PO SCH ×3 (07:55→20:52)
[2021-10-01] MEDS: METOPROLOL SUCC 25MG EXT REL TAB PO SCH ×2 (07:56→20:52)
[2021-10-01] MEDS: predniSONE 20 MG TAB PO SCH (07:56)
[2021-10-01] MEDS: PANTOprazole 40 MG TAB PO SCH (07:56)
[2021-10-01] MEDS: dilTIAZem HCL 30 MG TAB PO SCH ×2 (07:57→20:51)
[2021-10-01] MEDS: APIXABAN 2.5 MG TAB PO SCH ×2 (07:57→20:50)
[2021-10-01] MEDS: MAGNESIUM OXIDE 400 MG TAB PO SCH (08:00)
--- NOTE | 2021-10-01 09:28 | Cardiology Progress Note ---
Date of Service October 01, 2021 Assessment & Plan (1) Paroxysmal atrial fibrillation: (2) Elevated troponin I level: (3) LBBB (left bundle branch block): (4) UTI (urinary tract infection): (5) Hyperthyroidism: Plan Patient is an 89-year-old female with complex history which includes problems as noted below 1. Paroxysmal atrial fibrillation with tachybradycardia syndrome status post dual-chamber pacemaker. Patient previously on amiodarone but presents now with thyroid toxicity/hyperthyroidism. Currently in sinus rhythm with occasional episodes of atrial fibrillation but with controlled ventricular response on combination of metoprolol digoxin and diltiazem would continue. Will not initiate antiarrhythmic therapy. Patient appropriately anticoagulated with Eliquis 2. 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 Taper as per endocrinology recommendations 3. Intermittent chest and abdominal pain without obstructive coronary disease by cardiac catheterization Recommendations as above. Physical therapy consult placed. Case management assessing for rehab stay Admission and Anticipated Discharge Date Admission Date: September 25, 2021 Subjective Was seen and personally examined, chart, medications, telemetry reviewed. Patient sitting out of bed in chair noting feeling weary at times but no chest pains, shortness of breath, tachypalpitations. No further abdominal pain. Telemetry reveals sinus rhythm without significant break Review of Systems Review of Systems: All systems reviewed & are unremarkable except as noted in Subjective Physical Exam Physical Exam: Temp Pulse Resp BP Pulse Ox O2 Del Method O2 Flow Rate 36.4 C L 65 21 131/62 85 L 6 09/27/21 08:36 09/27/21 09:00 09/27/21 08:30 09/27/21 08:00 09/27/21 08:30 09/27/21 09:00 09/26/21 11:46 Constitutional: well nourished and + thin; no acute distress Eyes: PERRL, conjunctivae normal, anicteric sclerae ENMT: external ear and nose normal, oropharynx normal Neck: trachea midline, no thyromegaly Respiratory: normal respiratory effort, lungs clear to auscultation no respiratory distress and no labored breathing Auscultation: no crackles, no rales, no rhonchi and no wheezes Cardiovascular: RRR, no murmur, no edema Rate/Rhythm: regular rate and regular rhythm Heart Sounds: normal S1, normal S2 and + murmur (2/6 medium pitched mid systolic murmur heard best at the base) Vessels: radial pulses present; no JVD and no carotid bruit Extremities: no edema Gastrointestinal (Abdomen): normal bowel sounds, soft, nontender, no hepatosplenomegaly Inspection/Auscultation: normal bowel sounds; abdomen not distended Percussion/Palpation: abdomen soft; abdomen nontender, no guarding and abdomen not rigid Neurologic: PERRL, EOMI, accommodation nl, no face palsy, no dysarthria CN's II-XI intact bilaterally and moves all extremities; no focal motor deficits Motor/Sensory: no tremor Psychiatric: A+Ox3, euthymic affect Results & Data ([facility]) Vital Signs (Past 12 Hours) Vital Signs Temp Pulse Pulse Resp BP Pulse Ox O2 Del Method 10/01/21 07:00 36.5 C 68 15 122/44 L 97 10/01/21 03:00 36.8 C 76 18 139/63 96 Room Air 09/30/21 23:26 70 09/30/21 23:17 36.6 C 68 19 118/42 L 95 Room Air
[2021-10-01] MEDS: DIGOXIN 0.125 MG TAB PO SCH (16:12)
[2021-10-01] MEDS: MELATONIN 3 MG TAB PO SCH (20:50)
[2021-10-01] MEDS: DOCUSATE SODIUM 100 MG CAP PO PRN (20:50)
[2021-10-01] MEDS: ATORVASTATIN 10 MG TAB PO SCH (20:51)
[2021-10-01] MEDS: MIRTAZAPINE TAB 15 MG TAB PO SCH (20:53)
--- NOTE | 2021-10-01 23:38 | Hospitalist Progress Note ---
Date of Service October 01, 2021 Assessment & Plan (1) Chest pain: Plan: 89 year old female with history of A fib on Eliquis, CHFpEF, Hyperthyroidism, HTN presenting with weakness. CHEST PAIN ELEVATED TROPONIN Need to r/o ACS Received aspirin 325mg and was started on heparin drip S/P cardiac cath with no major vessel occluded Echo showed left ventricular wall is normal with EF 60- 65% Cardiology on board Heparin drip was discontinued then transition to eliquis Continue statin and metoprolol Clinically stable PAROXYSMAL A FIB rate controlled continue Digoxin Continue metoprolol 75mg BID, Diltiazem 30mg BID and digoxin Amiodarone discontinued Continue Eliquis UTI Urine culture from 09/23/21 growing Proteus and Klebsiella Ceftriaxone 2g IV changed to Cefazolin Plan to transition to PO abx WEAKNESS Mostly due to UTI PT/OT eval Fall precaution Consider inpatient rehab Anxiety Her symptoms seems to related to her anxiety Continue hydroxyzine prn CHF Complaint of SOB Continue monitor for sign of volume overload HYPERTHYROIDISM Thyroid toxicity from amiodarone new diagnosis from 2 days ago continue Prednisone, Methimazole ff up with Dr. Lozano in 2 weeks HTN hold Lisinopril as BP on the lower side DVT prophylaxis On Eliquis Code status DNR Disposition Waiting for placement to rehab Admission and Anticipated Discharge Date Admission Date: September 25, 2021 Subjective Patient was seen and examined for follow-up of chest pain Sitting in chair with no acute distress watching TV Denies any chest pain, palpitation, dizziness and SOB Review of Systems Review of Systems: All systems reviewed & are unremarkable except as noted in Subjective Physical Exam Physical Exam: General- No acute distress Head- atraumatic Eyes- PERRL, EOMI, ENT- oropharynx clear Neck- supple, no JVD Lungs- clear to auscultation Heart- regular rhythm; no murmur Abdomen- normal bowel sounds, soft, nontender Extremities- no calf tenderness, no hematoma noted in right wrist Neuro- alert, oriented x 3; PERRL, EOMI; no facial palsy; no dysarthria Skin- warm & dry Results & Data Results & Data ([facility]) Vital Signs (Past 12 Hours) Vital Signs Temp Pulse Pulse Resp BP BP Pulse Ox 10/01/21 23:23 67 10/01/21 23:05 36.6 C 67 18 122/54 L 97 10/01/21 19:35 36.5 C 71 18 121/54 L 94 10/01/21 15:00 36.8 C 76 15 122/61 94 10/01/21 14:51 66 O2 Del Method 10/01/21 23:23 10/01/21 23:05 Room Air 10/01/21 19:35 Room Air 10/01/21 15:00 Room Air 10/01/21 14:51
[2021-10-02] MEDS: methIMAzole 5 MG TABLET PO SCH ×3 (09:08→20:12)
[2021-10-02] MEDS: APIXABAN 2.5 MG TAB PO SCH ×2 (09:08→20:11)
[2021-10-02] MEDS: MAGNESIUM OXIDE 400 MG TAB PO SCH (09:09)
[2021-10-02] MEDS: PANTOprazole 40 MG TAB PO SCH (09:09)
[2021-10-02] MEDS: dilTIAZem HCL 30 MG TAB PO SCH ×2 (09:09→20:12)
[2021-10-02] MEDS: predniSONE 20 MG TAB PO SCH (09:09)
[2021-10-02] MEDS: METOPROLOL SUCC 25MG EXT REL TAB PO SCH ×2 (09:09→20:13)
--- NOTE | 2021-10-02 09:15 | Cardiology Progress Note ---
Date of Service October 02, 2021 Assessment & Plan (1) Paroxysmal atrial fibrillation: (2) Elevated troponin I level: (3) LBBB (left bundle branch block): (4) UTI (urinary tract infection): (5) Hyperthyroidism: Plan Patient is an 89-year-old female with complex history which includes problems as noted below 1. Paroxysmal atrial fibrillation with tachybradycardia syndrome status post dual-chamber pacemaker. Patient previously on amiodarone but presents now with thyroid toxicity/hyperthyroidism. Currently in sinus rhythm with occasional episodes of atrial fibrillation but with controlled ventricular response on combination of metoprolol digoxin and diltiazem would continue. Will not initiate antiarrhythmic therapy. No indications for attempts to return to sinus rhythm with atrial fibrillation episodes. Patient appropriately anticoagulated with Eliquis 2. 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 Taper as per endocrinology recommendations 3. Intermittent chest and abdominal pain without obstructive coronary disease by cardiac catheterization Recommendations as above. Physical therapy in today Lab work ordered BMP, TSH T4 Recommend tapering prednisone now on 7 days therapy. Methimazole as per [facility] Case management assessing for rehab stay Admission and Anticipated Discharge Date Admission Date: September 25, 2021 Subjective Patient seen and examined, chart, medications, telemetry reviewed. Patient ambulatory in room with walker no acute complaints this morning. Telemetry demonstrates intermittent A. fib flutter with good rate control patient is minimally aware without cardiac symptoms Review of Systems Review of Systems: All systems reviewed & are unremarkable except as noted in Subjective Physical Exam Physical Exam: Temp Pulse Resp BP Pulse Ox O2 Del Method O2 Flow Rate 36.4 C L 65 21 131/62 85 L 6 09/27/21 08:36 09/27/21 09:00 09/27/21 08:30 09/27/21 08:00 09/27/21 08:30 09/27/21 09:00 09/26/21 11:46 Constitutional: well nourished and + thin; no acute distress Eyes: PERRL, conjunctivae normal, anicteric sclerae ENMT: external ear and nose normal, oropharynx normal Neck: trachea midline, no thyromegaly Respiratory: normal respiratory effort, lungs clear to auscultation no respiratory distress and no labored breathing Auscultation: no crackles, no rales, no rhonchi and no wheezes Cardiovascular: Rate/Rhythm: + irregularly irregular Heart Sounds: normal S1, normal S2 and + murmur (2/6 medium pitched mid systolic murmur heard best at the base) Vessels: radial pulses present; no JVD and no carotid bruit Extremities: no edema Gastrointestinal (Abdomen): normal bowel sounds, soft, nontender, no hepatosplenomegaly Inspection/Auscultation: normal bowel sounds; abdomen not distended Percussion/Palpation: abdomen soft; abdomen nontender, no guarding and abdomen not rigid Neurologic: PERRL, EOMI, accommodation nl, no face palsy, no dysarthria CN's II-XI intact bilaterally and moves all extremities; no focal motor deficits Motor/Sensory: no tremor Psychiatric: A+Ox3, euthymic affect Results & Data ([facility]) Vital Signs (Past 12 Hours) Vital Signs Temp Pulse Pulse Resp BP Pulse Ox O2 Del Method 10/02/21 07:47 36.8 C 76 17 116/54 L 95 Room Air 10/02/21 03:21 36.8 C 66 20 116/48 L 95 Room Air 10/01/21 23:23 67 10/01/21 23:05 36.6 C 67 18 122/54 L 97 Room Air
[2021-10-02 10:10] LABS: BUN Creatinine Ratio 33.3 (10-20); Calcium 9.1 mg/dl (8.5-10.1); Creatinine Clr Calc Pharmacy 49.9 ml/min; Est GFR (African American) 90.8 ml/min; Est GFR (Non-African American) 78.3 ml/min; Potassium 3.2 mmol/L (3.5-5.1)
[2021-10-02] MEDS ORDERED: POTASSIUM CHLORIDE CRTAB 20 MEQ TABCR PO STA (10:25)
[2021-10-02] MEDS: MAGNESIUM HYDROXIDE SUSP 30 ML UDC PO PRN (10:57)
[2021-10-02] MEDS: DOCUSATE SODIUM 100 MG CAP PO PRN (10:57)
--- NOTE | 2021-10-02 15:24 | Hospitalist Progress Note ---
Date of Service October 02, 2021 Assessment & Plan (1) Chest pain: Plan: 89 year old female with history of A fib on Eliquis, CHFpEF, Hyperthyroidism, HTN presenting with weakness. CHEST PAIN ELEVATED TROPONIN secondary to [place]ST [place] Received aspirin 325mg and was started on heparin drip S/P cardiac cath with no major vessel occluded Echo showed left ventricular wall is normal with EF 60- 65% Appreciate cardiology input and recommendation Heparin drip was discontinued then transition to eliquis Continue statin and metoprolol Clinically stable but remains generally weak and lethargic PAROXYSMAL A FIB Initially started on intravenous amiodarone and subsequently amiodarone was discontinued due to hypothyroidism Rate controlled medications are continued with digoxin, metoprolol and diltiazem Continue Eliquis UTI Urine culture from 09/23/21 growing Proteus and Klebsiella Ceftriaxone 2g IV changed to Cefazolin Plan to transition to PO abx WEAKNESS Mostly due to UTI PT/OT eval Fall precaution Consider inpatient rehab Continues to be weak and lethargic-we will continue PT and OT evaluation Anxiety Her symptoms seems to related to her anxiety Continue hydroxyzine prn CHF Complaint of SOB No chest x-ray evidence of congestion and BNP minimally elevated at more than 300 Doubt any volume overload and/or CHF HYPERTHYROIDISM 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 Lozano in 2 weeks We will decrease prednisone HTN hold Lisinopril as BP on the lower side DVT prophylaxis On Eliquis Code status DNR Disposition Waiting for placement to rehab Admission and Anticipated Discharge Date Admission Date: September 25, 2021 Subjective 10/02/2021 The patient was seen and examined in telemetry unit She was noted to be very weak, lethargic and felt dizzy this morning while out of bed She was noted to have atrial fibrillation with slightly increased heart rate as well Denies any chest pain and/or increasing shortness of breath No nausea and or vomiting Review of Systems Review of Systems: All systems reviewed and are unremarkable except as noted below Physical Exam Physical Exam: Lying in bed very depressed and distressed Constitutional: + ill appearing and + thin Eyes: PERRL, conjunctivae normal, anicteric sclerae ENMT: external ear and nose normal, oropharynx normal Neck: trachea midline, no thyromegaly Respiratory: no respiratory distress Auscultation: + diminished lung sounds and + crackles (Minimal bibasilar crackles) Cardiovascular: Rate/Rhythm: + irregularly irregular; not tachycardic Heart Sounds: normal S1, normal S2 and + murmur (2/6 ESM over precordium) Extremities: no edema Gastrointestinal (Abdomen): Inspection/Auscultation: normal bowel sounds; abdomen not distended Percussion/Palpation: abdomen soft; abdomen nontender Musculoskeletal: No acute arthritis in any joint Neurologic: Alert, awake and oriented x3. Generally very weak and lethargic Lymphatic: no cervical or axillary lymphadenopathy Results & Data Results & Data ([facility]) Vital Signs (Past 12 Hours) Vital Signs Temp Pulse Pulse Resp BP Pulse Ox O2 Del Method 10/02/21 15:04 65 10/02/21 15:00 36.6 C 66 15 103/47 L 97 Room Air 10/02/21 07:40 70 10/02/21 07:00 64 10/02/21 10:27 36.6 C 78 16 102/52 L 95 Room Air 10/02/21 09:19 95 10/02/21 07:47 36.8 C 76 17 116/54 L 95 Room Air 10/02/21 03:21 36.8 C 66 20 116/48 L 95 Room Air Laboratory Results [facility] 10/02/21 09:34 Sodium 143 Potassium 3.2 L Chloride 106 Carbon Dioxide 30 BUN 22 Creatinine 0.66 Glucose 142 H Calcium 9.1 Medications Administered Current Inpatient Medications Acetaminophen (Acetaminophen 325 Mg Tab) 650 mg PO Q4H PRN PRN Reason: Pain or Fever Stop: 10/25/21 20:48 Apixaban (Apixaban 2.5 Mg Tab) 2.5 mg PO BID [facility] Stop: 10/26/21 20:59 Last Admin: 10/02/21 09:08 Dose: 2.5 mg Atorvastatin Calcium (Atorvastatin 10 Mg Tab) 10 mg PO HS [facility]ARD[facility] Stop: 10/26/21 20:59 Last Admin: 10/01/21 20:51 Dose: 10 mg Digoxin (Digoxin 0.125 Mg Tab) 0.125 mg PO DAILY@1600 [facility] Stop: 10/26/21 15:59 Last Admin: 10/01/21 16:12 Dose: 0.125 mg Diltiazem HCl (Diltiazem Hcl 30 Mg Tab) 30 mg PO BID [facility] Stop: 10/27/21 11:29 Last Admin: 10/02/21 09:09 Dose: 30 mg Docusate Sodium (Docusate Sodium 100 Mg Cap) 100 mg PO HS PRN PRN Reason: Constipation Stop: 10/27/21 11:56 Last Admin: 10/02/21 10:57 Dose: 100 mg Furosemide (Furosemide 20 Mg Tab) 20 mg PO 2XWK PRN PRN Reason: sweling and weight gain Stop: 10/25/21 20:48 Hydroxyzine HCl (Hydroxyzine Hcl 10 Mg Tab) 10 mg PO Q6 PRN PRN Reason: anxiety Stop: 10/28/21 15:45 Last Admin: 09/29/21 21:14 Dose: 10 mg Magnesium Hydroxide (Magnesium Hydroxide Susp 30 Ml Udc) 15 ml PO DAILY PRN PRN Reason: Constipation Stop: 10/27/21 11:56 Last Admin: 10/02/21 10:57 Dose: 15 ml Magnesium Oxide (Magnesium Oxide 400 Mg Tab) 400 mg PO QAM [facility] Stop: 10/26/21 08:59 Last Admin: 10/02/21 09:09 Dose: 400 mg Melatonin (Melatonin 3 Mg Tab) 6 mg PO HS [facility] Stop: 10/25/21 20:59 Last Admin: 10/01/21 20:50 Dose: 6 mg Methimazole (Methimazole 5 Mg Tablet) 10 mg PO TID [facility] Stop: 10/25/21 20:59 Last Admin: 10/02/21 13:21 Dose: 10 mg Metoclopramide HCl (Metoclopramide Hcl Inj 5 Mg/Ml 2 Ml Vial) 5 mg IV ONE PRN PRN Reason: nausea Stop: 10/28/21 14:40 Metoprolol Succinate (Metoprolol Succ 25mg Ext Rel Tab) 75 mg PO BID [facility] Stop: 10/27/21 11:29 Last Admin: 10/02/21 09:09 Dose: 75 mg Mirtazapine (Mirtazapine Tab 15 Mg Tab) 15 mg PO HS [facility] Stop: 10/25/21 20:59 Last Admin: 10/01/21 20:53 Dose: 15 mg Pantoprazole Sodium (Pantoprazole 40 Mg Tab) 40 mg PO QAM [facility] Stop: 10/26/21 08:59 Last Admin: 10/02/21 09:09 Dose: 40 mg Prednisone (Prednisone 20 Mg Tab) 20 mg PO DAILY [facility] Stop: 10/26/21 08:59 Last Admin: 10/02/21 09:09 Dose: 20 mg Tramadol HCl (Tramadol Hcl 50 Mg Tablet) 25 mg PO Q4H PRN PRN Reason: Pain Stop: 10/25/21 22:34
[2021-10-02] MEDS: DIGOXIN 0.125 MG TAB PO SCH (16:21)
[2021-10-02] MEDS: ATORVASTATIN 10 MG TAB PO SCH (20:11)
[2021-10-02] MEDS: MIRTAZAPINE TAB 15 MG TAB PO SCH (20:14)
[2021-10-02] MEDS: MELATONIN 3 MG TAB PO SCH (20:16)
--- NOTE | 2021-10-03 03:44 | Hospitalist Progress Note ---
Date of Service October 01, 2021 Assessment & Plan (1) Chest pain: Plan: 89 year old female with history of A fib on Eliquis, CHFpEF, Hyperthyroidism, HTN presenting with weakness. CHEST PAIN ELEVATED TROPONIN Need to r/o ACS Received aspirin 325mg and was started on heparin drip S/P cardiac cath with no major vessel occluded Echo showed left ventricular wall is normal with EF 60- 65% Cardiology on board Heparin drip was discontinued then transition to eliquis Continue statin and metoprolol Clinically stable PAROXYSMAL A FIB Initially started on intravenous amiodarone and subsequently amiodarone was discontinued due to hypothyroidism Rate controlled medications are continued with digoxin, metoprolol and diltiazem Continue Eliquis UTI Urine culture from 09/23/21 growing Proteus and Klebsiella Ceftriaxone 2g IV changed to Cefazolin Plan to transition to PO abx WEAKNESS Mostly due to UTI PT/OT eval Fall precaution Consider inpatient rehab Continues to be weak and lethargic-we will continue PT and OT evaluation Anxiety Her symptoms seems to related to her anxiety Continue hydroxyzine prn CHF Complaint of SOB No chest x-ray evidence of congestion and BNP minimally elevated at more than 300 Doubt any volume overload and/or CHF HYPERTHYROIDISM 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 Lozano in 2 weeks We will decrease prednisone HTN hold Lisinopril as BP on the lower side DVT prophylaxis On Eliquis Code status DNR Disposition Waiting for placement to rehab Admission and Anticipated Discharge Date Admission Date: September 25, 2021 Subjective Patient was seen and examined for follow-up of chest pain Sitting in chair with no acute distress watching TV She said that she feels better She had 2 bowel movement yesterday Denies any chest pain, palpitation, dizziness and SOB Review of Systems Review of Systems: All systems reviewed & are unremarkable except as noted in Subjective Physical Exam Physical Exam: General- No acute distress Head- atraumatic Eyes- PERRL, EOMI, ENT- oropharynx clear Neck- supple, no JVD Lungs- clear to auscultation Heart- regular rhythm; no murmur Abdomen- normal bowel sounds, soft, nontender Extremities- no calf tenderness, no hematoma noted in right wrist Neuro- alert, oriented x 3; PERRL, EOMI; no facial palsy; no dysarthria Skin- warm & dry Results & Data Results & Data ([facility]) Vital Signs (Past 12 Hours) Vital Signs Temp Pulse Pulse Resp BP Pulse Ox O2 Del Method 10/03/21 03:36 36.4 C L 65 20 118/49 L 93 Room Air 10/02/21 22:18 84 10/02/21 23:28 36.4 C L 67 18 116/54 L 93 Room Air 10/02/21 19:10 36.9 C 91 H 16 131/92 98 Room Air 10/02/21 16:21 65
[2021-10-03 06:11] LABS: Basophils # (auto) 0.03 K/uL (0-0.2); Basophils % (auto) 0.3 %; Eosinophils # (auto) 0.11 K/uL (0-0.50); Eosinophils % (auto) 1.3 %; Hematocrit (blood only) 34.7 % (34.1-44.9); Hemoglobin 11.6 g/dl (12.0-16.0); Immature Granulocytes # (auto) 0.04 K/uL (0.00-0.02); Immature Granulocytes % (auto) 0.5 %; Lymphocytes # (auto) 2.63 K/uL (1.2-3.4); Lymphocytes % (auto) 29.9 %; Mean Corpuscular Hemoglobin 27.4 pg (25.0-34.0); Mean Corpuscular Hgb Conc 33.4 g/dL (32.0-36.0); Mean Platelet Volume 9.3 fL (9.4-12.3); Monocytes % (auto) 9.1 %; Neutrophils # (auto) 5.19 K/uL (1.4-6.5); Neutrophils % (auto) 58.9 %; Platelet Count 241 K/uL (130-400); RDW Coefficient of Variation 12.6 % (11.5-14.5); RDW Standard Deviation 37.9 fL (36.4-46.3); Red Blood Count 4.23 M/uL (3.93-5.22)
[2021-10-03 06:36] LABS: BUN Creatinine Ratio 37.3 (10-20); Calcium 9.1 mg/dl (8.5-10.1); Creatinine Clr Calc Pharmacy 55.8 ml/min; Est GFR (African American) 94.2 ml/min; Est GFR (Non-African American) 81.3 ml/min; Magnesium 2.1 mg/dl (1.7-2.4); Potassium 3.9 mmol/L (3.5-5.1)
[2021-10-03] MEDS: PANTOprazole 40 MG TAB PO SCH (08:57)
[2021-10-03] MEDS: methIMAzole 5 MG TABLET PO SCH ×3 (08:58→19:55)
[2021-10-03] MEDS: predniSONE 10 MG TABLET PO SCH (08:58)
[2021-10-03] MEDS: METOPROLOL SUCC 25MG EXT REL TAB PO SCH ×2 (08:58→19:54)
[2021-10-03] MEDS: dilTIAZem HCL 30 MG TAB PO SCH ×2 (08:59→19:57)
[2021-10-03] MEDS: APIXABAN 2.5 MG TAB PO SCH ×2 (08:59→19:58)
[2021-10-03] MEDS: MAGNESIUM OXIDE 400 MG TAB PO SCH (09:03)
--- NOTE | 2021-10-03 09:08 | Cardiology Progress Note ---
Date of Service October 03, 2021 Assessment & Plan (1) Paroxysmal atrial fibrillation: (2) Elevated troponin I level: (3) LBBB (left bundle branch block): (4) UTI (urinary tract infection): (5) Hyperthyroidism: Plan Patient is an 89-year-old female with complex history which includes problems as noted below 1. Paroxysmal atrial fibrillation with tachybradycardia syndrome status post dual-chamber pacemaker. Patient previously on amiodarone but presents now with thyroid toxicity/hyperthyroidism. Currently in sinus rhythm with occasional episodes of atrial fibrillation but with controlled ventricular response on combination of metoprolol digoxin and diltiazem would continue. Will not initiate antiarrhythmic therapy. No indications for attempts to return to sinus rhythm with atrial fibrillation episodes. Patient appropriately anticoagulated with Eliquis 2. 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 Taper as per endocrinology recommendations 3. Intermittent chest and abdominal pain noncardiac without obstructive coronary disease by cardiac catheterization this admission 4. Generalized weakness and debility secondary to above issues As above patient admitted with acute thyrotoxicosis secondary to amiodarone with noncardiac chest pain. Patient is improving after treatment but still remains significantly debilitated and fatigued. She is generally active about her home and cares for her despite age prior to current admission Agree with plans for inpatient rehab Plan on reducing digoxin to 0.125 mg 5 days/week on discharge Admission and Anticipated Discharge Date Admission Date: September 25, 2021 Subjective Patient was seen and examined, chart, medications, telemetry reviewed. Patient sitting out of bed in chair. No chest pains, tachypalpitations, shortness of breath. Still becomes markedly fatigued with low-level exertion but walking about room with assistance using at walker Previously active at home Telemetry reveals atrial sensed ventricular paced rhythm no further atrial arrhythmias past 22 hours Review of Systems Review of Systems: All systems reviewed & are unremarkable except as noted in Subjective Physical Exam Physical Exam: Temp Pulse Resp BP Pulse Ox O2 Del Method O2 Flow Rate 36.4 C L 65 21 131/62 85 L 6 09/27/21 08:36 09/27/21 09:00 09/27/21 08:30 09/27/21 08:00 09/27/21 08:30 09/27/21 09:00 09/26/21 11:46 Constitutional: well nourished and + thin; no acute distress Eyes: PERRL, conjunctivae normal, anicteric sclerae ENMT: external ear and nose normal, oropharynx normal Neck: trachea midline, no thyromegaly Respiratory: normal respiratory effort, lungs clear to auscultation no respiratory distress and no labored breathing Auscultation: no crackles, no rales, no rhonchi and no wheezes Cardiovascular: RRR, no murmur, no edema Rate/Rhythm: regular rate and regular rhythm Heart Sounds: normal S1, normal S2 and + murmur (2/6 medium pitched mid systolic murmur heard best at the base) Vessels: radial pulses present; no JVD and no carotid bruit Extremities: no edema Gastrointestinal (Abdomen): normal bowel sounds, soft, nontender, no hepatosplenomegaly Inspection/Auscultation: normal bowel sounds; abdomen not distended Percussion/Palpation: abdomen soft; abdomen nontender, no guarding and abdomen not rigid Neurologic: PERRL, EOMI, accommodation nl, no face palsy, no dysarthria CN's II-XI intact bilaterally and moves all extremities; no focal motor deficits Motor/Sensory: no tremor Psychiatric: A+Ox3, euthymic affect Results & Data ([facility]) Vital Signs (Past 12 Hours) Vital Signs Temp Pulse Pulse Resp BP Pulse Ox O2 Del Method 10/03/21 07:21 66 10/03/21 07:18 36.5 C 66 17 126/59 L 95 Room Air 10/03/21 03:36 36.4 C L 65 20 118/49 L 93 Room Air 10/02/21 22:18 84 10/02/21 23:28 36.4 C L 67 18 116/54 L 93 Room Air Laboratory Results Laboratory Results - last 24 hr 10/02/21 10/02/21 10/03/21 09:34 09:34 05:53 WBC 8.80 RBC 4.23 Hgb 11.6 L Hct 34.7 MCV 82.0 MCH 27.4 MCHC 33.4 RDW Std Deviation 37.9 RDW Coeff of Coleman 12.6 Plt Count 241 MPV 9.3 L Immature Gran % (Auto) 0.5 Neut % (Auto) 58.9 Lymph % (Auto) 29.9 [place] % (Auto) 9.1 Eos % (Auto) 1.3 Baso % (Auto) 0.3 Neut # (Auto) 5.19 Lymph # (Auto) 2.63 [place] # (Auto) 0.80 Eos # (Auto) 0.11 Baso # (Auto) 0.03 Immature Gran # (Auto) 0.04 H Sodium 143 Potassium 3.2 L Chloride 106 Carbon Dioxide 30 Anion Gap 7 BUN 22 Creatinine 0.66 Est Cr Clr Drug Dosing 49.9 Est GFR ( Amer) 90.8 Est GFR (Non-Af Amer) 78.3 BUN/Creatinine Ratio 33.3 H Glucose 142 H Calcium 9.1 Magnesium Free T4 4.36 H 10/03/21 05:53 WBC RBC Hgb Hct MCV MCH MCHC RDW Std Deviation RDW Coeff of Coleman Plt Count MPV Immature Gran % (Auto) Neut % (Auto) Lymph % (Auto) [place] % (Auto) Eos % (Auto) Baso % (Auto) Neut # (Auto) Lymph # (Auto) [place] # (Auto) Eos # (Auto) Baso # (Auto) Immature Gran # (Auto) Sodium 140 Potassium 3.9 D Chloride 107 Carbon Dioxide 29 Anion Gap 4 BUN 22 Creatinine 0.59 L Est Cr Clr Drug Dosing 55.8 Est GFR ( Amer) 94.2 Est GFR (Non-Af Amer) 81.3 BUN/Creatinine Ratio 37.3 H Glucose 84 Calcium 9.1 Magnesium 2.1 Free T4
--- NOTE | 2021-10-03 13:53 | Hospitalist Progress Note ---
Date of Service October 03, 2021 Assessment & Plan (1) Chest pain: Plan: 89 year old female with history of A fib on Eliquis, CHFpEF, Hyperthyroidism, HTN presenting with weakness. CHEST PAIN ELEVATED TROPONIN Need to r/o ACS Received aspirin 325mg and was started on heparin drip S/P cardiac cath with no major vessel occluded Echo showed left ventricular wall is normal with EF 60- 65% Cardiology on board Heparin drip was discontinued then transition to eliquis Continue statin and metoprolol Clinically stable Denies any more chest pain and/or palpitation or shortness of breath PAROXYSMAL A FIB Initially started on intravenous amiodarone and subsequently amiodarone was discontinued due to hypothyroidism Rate controlled medications are continued with digoxin, metoprolol and diltiazem Continue Eliquis Heart rate is controlled at 66/min UTI Urine culture from 09/23/21 growing Proteus and Klebsiella Ceftriaxone 2g IV changed to Cefazolin Plan to transition to PO abx Finish the course of antibiotic WEAKNESS Mostly due to UTI PT/OT eval Fall precaution Consider inpatient rehab Continues to be weak and lethargic-we will continue PT and OT evaluation Awaiting placement Anxiety Her symptoms seems to related to her anxiety Continue hydroxyzine prn CHF Complaint of SOB No chest x-ray evidence of congestion and BNP minimally elevated at more than 300 Doubt any volume overload and/or CHF HYPERTHYROIDISM 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 Lozano in 2 weeks We will decrease prednisone HTN hold Lisinopril as BP on the lower side DVT prophylaxis On Eliquis Code status DNR Disposition Waiting for placement to rehab Admission and Anticipated Discharge Date Admission Date: September 25, 2021 Subjective 10/02/2021 Patient was seen and examined, chart, medications, telemetry reviewed. Patient sitting out of bed in chair. No chest pains, tachypalpitations, shortness of breath. Still becomes markedly fatigued with low-level exertion but walking about room with assistance using at walker Previously active at home Telemetry reveals atrial sensed ventricular paced rhythm no further atrial arrhythmias past 22 hours 10/03/2021 The patient was seen and examined in telemetry unit She feels a little better today but remains generally weak Denies any more dizziness with ambulation and she wants to do more physical therapy in order to get home Denies any other significant symptoms Review of Systems Review of Systems: All systems reviewed and are unremarkable except as noted below Neurologic: Generally weak and lethargic Physical Exam Physical Exam: Sitting on a chair without any acute distress Constitutional: + ill appearing and + thin Eyes: PERRL, conjunctivae normal, anicteric sclerae ENMT: external ear and nose normal, oropharynx normal Neck: trachea midline, no thyromegaly Respiratory: no respiratory distress Auscultation: + diminished lung sounds and + crackles (Minimal bibasilar crackles) Cardiovascular: Rate/Rhythm: + irregularly irregular; not tachycardic Heart Sounds: normal S1, normal S2 and + murmur (2/6 ESM over precordium) Extremities: no edema Gastrointestinal (Abdomen): Inspection/Auscultation: normal bowel sounds; abdomen not distended Percussion/Palpation: abdomen soft; abdomen nontender Musculoskeletal: No acute arthritis in any joint Neurologic: normal touch/pain/proprioception and moves all extremities; no focal motor deficits and not confused Psychiatric: A+Ox3, euthymic affect Lymphatic: no cervical or axillary lymphadenopathy Results & Data Results & Data ([facility]) Vital Signs (Past 12 Hours) Vital Signs Temp Pulse Pulse Resp BP Pulse Ox O2 Del Method 10/03/21 11:09 36.5 C 66 18 107/49 L 97 Room Air 10/03/21 07:21 66 10/03/21 07:18 36.5 C 66 17 126/59 L 95 Room Air 10/03/21 03:36 36.4 C L 65 20 118/49 L 93 Room Air Laboratory Results Short CBC 10/03/21 Range/Units 05:53 WBC 8.80 (4.8-10.8) K/ul Hgb 11.6 L (12.0-16.0) g/dl Hct 34.7 (34.1-44.9) % Plt Count 241 (130-400) K/uL BMP 10/03/21 05:53 Sodium 140 Potassium 3.9 D Chloride 107 Carbon Dioxide 29 BUN 22 Creatinine 0.59 L Glucose 84 Calcium 9.1 Medications Administered Current Inpatient Medications Acetaminophen (Acetaminophen 325 Mg Tab) 650 mg PO Q4H PRN PRN Reason: Pain or Fever Stop: 10/25/21 20:48 Apixaban (Apixaban 2.5 Mg Tab) 2.5 mg PO BID [facility] Stop: 10/26/21 20:59 Last Admin: 10/03/21 08:59 Dose: 2.5 mg Atorvastatin Calcium (Atorvastatin 10 Mg Tab) 10 mg PO HS [facility] Stop: 10/26/21 20:59 Last Admin: 10/02/21 20:11 Dose: 10 mg Digoxin (Digoxin 0.125 Mg Tab) 0.125 mg PO DAILY@1600 [facility] Stop: 10/26/21 15:59 Last Admin: 10/02/21 16:21 Dose: 0.125 mg Diltiazem HCl (Diltiazem Hcl 30 Mg Tab) 30 mg PO BID [facility] Stop: 10/27/21 11:29 Last Admin: 10/03/21 08:59 Dose: 30 mg Docusate Sodium (Docusate Sodium 100 Mg Cap) 100 mg PO HS PRN PRN Reason: Constipation Stop: 10/27/21 11:56 Last Admin: 10/02/21 10:57 Dose: 100 mg Furosemide (Furosemide 20 Mg Tab) 20 mg PO 2XWK PRN PRN Reason: sweling and weight gain Stop: 10/25/21 20:48 Hydroxyzine HCl (Hydroxyzine Hcl 10 Mg Tab) 10 mg PO Q6 PRN PRN Reason: anxiety Stop: 10/28/21 15:45 Last Admin: 09/29/21 21:14 Dose: 10 mg Magnesium Hydroxide (Magnesium Hydroxide Susp 30 Ml Udc) 15 ml PO DAILY PRN PRN Reason: Constipation Stop: 10/27/21 11:56 Last Admin: 10/02/21 10:57 Dose: 15 ml Magnesium Oxide (Magnesium Oxide 400 Mg Tab) 400 mg PO QAM [facility] Stop: 10/26/21 08:59 Last Admin: 10/03/21 09:03 Dose: 400 mg Melatonin (Melatonin 3 Mg Tab) 6 mg PO HS [facility] Stop: 10/25/21 20:59 Last Admin: 10/02/21 20:16 Dose: 6 mg Methimazole (Methimazole 5 Mg Tablet) 10 mg PO TID [facility] Stop: 10/25/21 20:59 Last Admin: 10/03/21 08:58 Dose: 10 mg Metoclopramide HCl (Metoclopramide Hcl Inj 5 Mg/Ml 2 Ml Vial) 5 mg IV ONE PRN PRN Reason: nausea Stop: 10/28/21 14:40 Metoprolol Succinate (Metoprolol Succ 25mg Ext Rel Tab) 75 mg PO BID [facility] Stop: 10/27/21 11:29 Last Admin: 10/03/21 08:58 Dose: 75 mg Mirtazapine (Mirtazapine Tab 15 Mg Tab) 15 mg PO HS [facility] Stop: 10/25/21 20:59 Last Admin: 10/02/21 20:14 Dose: 15 mg Pantoprazole Sodium (Pantoprazole 40 Mg Tab) 40 mg PO QAM [facility] Stop: 10/26/21 08:59 Last Admin: 10/03/21 08:57 Dose: 40 mg Prednisone (Prednisone 10 Mg Tablet) 10 mg PO DAILY [facility] Stop: 11/02/21 08:59 Last Admin: 10/03/21 08:58 Dose: 10 mg Tramadol HCl (Tramadol Hcl 50 Mg Tablet) 25 mg PO Q4H PRN PRN Reason: Pain Stop: 10/25/21 22:34
[2021-10-03] MEDS: DIGOXIN 0.125 MG TAB PO SCH (16:34)
[2021-10-03] MEDS ORDERED: POLYETHYLENE (MIRALAX) 17 GM PACK PO SCH (16:45)
[2021-10-03] MEDS ORDERED: Nursing to Pharmacy Communication SCH (17:45)
[2021-10-03] MEDS: POLYETHYLENE (MIRALAX) 17 GM PACK PO SCH (19:52)
[2021-10-03] MEDS: MIRTAZAPINE TAB 15 MG TAB PO SCH (19:53)
[2021-10-03] MEDS: ATORVASTATIN 10 MG TAB PO SCH (19:53)
[2021-10-03] MEDS: MELATONIN 3 MG TAB PO SCH (19:57)
[2021-10-04] MEDS: methIMAzole 5 MG TABLET PO SCH ×3 (08:25→19:52)
[2021-10-04] MEDS: APIXABAN 2.5 MG TAB PO SCH ×2 (08:25→19:54)
[2021-10-04] MEDS: PANTOprazole 40 MG TAB PO SCH (08:25)
[2021-10-04] MEDS: predniSONE 10 MG TABLET PO SCH (08:25)
[2021-10-04] MEDS: dilTIAZem HCL 30 MG TAB PO SCH ×2 (09:12→19:54)
[2021-10-04] MEDS: METOPROLOL SUCC 25MG EXT REL TAB PO SCH ×2 (09:13→19:51)
[2021-10-04] MEDS: MAGNESIUM OXIDE 400 MG TAB PO SCH (09:13)
--- NOTE | 2021-10-04 10:43 | Cardiology Progress Note ---
Date of Service October 04, 2021 Assessment & Plan (1) Paroxysmal atrial fibrillation: (2) Elevated troponin I level: (3) LBBB (left bundle branch block): (4) UTI (urinary tract infection): (5) Hyperthyroidism: Plan Patient is an 89-year-old female with complex history which includes problems as noted below 1. Paroxysmal atrial fibrillation with tachybradycardia syndrome status post dual-chamber pacemaker. Patient previously on amiodarone but presents now with thyroid toxicity/hyperthyroidism. Currently in sinus rhythm with occasional episodes of atrial fibrillation but with controlled ventricular response on combination of metoprolol digoxin and diltiazem would continue. Will not initiate antiarrhythmic therapy. No indications for attempts to return to sinus rhythm with atrial fibrillation episodes. Patient appropriately anticoagulated with Eliquis 2. 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 Taper as per endocrinology recommendations 3. Intermittent chest and abdominal pain noncardiac without obstructive coronary disease by cardiac catheterization this admission 4. Generalized weakness and debility secondary to above issues As above patient admitted with acute thyrotoxicosis secondary to amiodarone with noncardiac chest pain. Patient is improving after treatment but still remains significantly debilitated and fatigued. She is generally active about her home and cares for her despite age prior to current admission Agree with plans for inpatient rehab Plan on reducing digoxin to 0.125 mg 5 days/week on discharge Add potassium 10 mg p.o. daily Admission and Anticipated Discharge Date Admission Date: September 25, 2021 Subjective Seen and examined, chart, medications, telemetry reviewed. No arrhythmias on telemetry. Sinus rhythm with intermittent ventricular paced patient still weak with minimal exertion frustrated with lack of mobility Review of Systems Review of Systems: All systems reviewed & are unremarkable except as noted in Subjective Physical Exam Physical Exam: Temp Pulse Resp BP Pulse Ox O2 Del Method O2 Flow Rate 36.4 C L 65 21 131/62 85 L 6 09/27/21 08:36 09/27/21 09:00 09/27/21 08:30 09/27/21 08:00 09/27/21 08:30 09/27/21 09:00 09/26/21 11:46 Constitutional: well nourished and + thin; no acute distress Eyes: PERRL, conjunctivae normal, anicteric sclerae ENMT: external ear and nose normal, oropharynx normal Neck: trachea midline, no thyromegaly Respiratory: normal respiratory effort, lungs clear to auscultation no respiratory distress and no labored breathing Auscultation: no crackles, no rales, no rhonchi and no wheezes Cardiovascular: RRR, no murmur, no edema Rate/Rhythm: regular rate, regular rhythm and + irregularly irregular Heart Sounds: normal S1, normal S2 and + murmur (2/6 medium pitched mid systolic murmur heard best at the base) Vessels: radial pulses present; no JVD and no carotid bruit Extremities: no edema Gastrointestinal (Abdomen): normal bowel sounds, soft, nontender, no hepatosplenomegaly Inspection/Auscultation: normal bowel sounds; abdomen not distended Percussion/Palpation: abdomen soft; abdomen nontender, no guarding and abdomen not rigid Neurologic: PERRL, EOMI, accommodation nl, no face palsy, no dysarthria CN's II-XI intact bilaterally and moves all extremities; no focal motor deficits Motor/Sensory: no tremor Psychiatric: A+Ox3, euthymic affect Results & Data ([facility]) Vital Signs (Past 12 Hours) Vital Signs Temp Pulse Pulse Resp BP BP Pulse Ox 10/04/21 09:12 77 142/66 H 10/04/21 07:00 65 10/04/21 07:08 36.8 C 63 18 118/43 L 94 10/04/21 03:01 36.4 C L 87 18 110/56 L 97 10/03/21 23:14 36.3 C L 67 18 120/49 L 96 O2 Del Method 10/04/21 09:12 10/04/21 07:00 10/04/21 07:08 Room Air 10/04/21 03:01 Room Air 10/03/21 23:14 Room Air
[2021-10-04] MEDS: MAGNESIUM HYDROXIDE SUSP 30 ML UDC PO PRN (13:58)
--- NOTE | 2021-10-04 14:22 | Hospitalist Progress Note ---
Date of Service October 04, 2021 Assessment & Plan (1) Chest pain: Plan: 89 year old female with history of A fib on Eliquis, CHFpEF, Hyperthyroidism, HTN presenting with weakness. CHEST PAIN ELEVATED TROPONIN Need to r/o ACS Received aspirin 325mg and was started on heparin drip S/P cardiac cath with no major vessel occluded Echo showed left ventricular wall is normal with EF 60- 65% Cardiology on board Heparin drip was discontinued then transition to eliquis Continue statin and metoprolol Clinically stable Denies any more chest pain and/or palpitation or shortness of breath Remains extremely weak and lethargic and getting frustrated with lack of mobility PAROXYSMAL A FIB Initially started on intravenous amiodarone and subsequently amiodarone was discontinued due to hypothyroidism Rate controlled medications are continued with digoxin, metoprolol and diltiazem Continue Eliquis Heart rate is controlled at 66/min and the blood pressure is controlled to UTI Urine culture from 09/23/21 growing Proteus and Klebsiella Ceftriaxone 2g IV changed to Cefazolin Plan to transition to PO abx Finish the course of antibiotic WEAKNESS Mostly due to UTI PT/OT eval Fall precaution Consider inpatient rehab Continues to be weak and lethargic-we will continue PT and OT evaluation Awaiting placement-[facility] Peer to peer interview was done and the patient was refused to go to the [facility] Anxiety Her symptoms seems to related to her anxiety Continue hydroxyzine prn CHF Complaint of SOB No chest x-ray evidence of congestion and BNP minimally elevated at more than 300 Doubt any volume overload and/or CHF HYPERTHYROIDISM 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 Lozano in 2 weeks We will decrease prednisone HTN hold Lisinopril as BP on the lower side DVT prophylaxis On Eliquis Code status DNR Disposition Waiting for placement to rehab Admission and Anticipated Discharge Date Admission Date: September 25, 2021 Subjective 10/02/2021 Patient was seen and examined, chart, medications, telemetry reviewed. Patient sitting out of bed in chair. No chest pains, tachypalpitations, shortness of breath. Still becomes markedly fatigued with low-level exertion but walking about room with assistance using at walker Previously active at home Telemetry reveals atrial sensed ventricular paced rhythm no further atrial arrhythmias past 22 hours 10/03/2021 The patient was seen and examined in telemetry unit She feels a little better today but remains generally weak Denies any more dizziness with ambulation and she wants to do more physical therapy in order to get home Denies any other significant symptoms 10/04/2021 The patient was seen and examined in telemetry unit She has been feeling much better but remains extremely weak and lethargic She gets easily fatigued with shortness of breath on exertion She has refused from going to the [facility] hospital Review of Systems Review of Systems: All systems reviewed and are unremarkable except as noted below Neurologic: Generally weak and lethargic Physical Exam Physical Exam: Sitting on a chair without any acute distress Constitutional: + ill appearing and + thin Eyes: PERRL, conjunctivae normal, anicteric sclerae ENMT: external ear and nose normal, oropharynx normal Neck: trachea midline, no thyromegaly Respiratory: no respiratory distress Auscultation: + diminished lung sounds and + crackles (Minimal bibasilar crackles) Cardiovascular: Rate/Rhythm: + irregularly irregular; not tachycardic Heart Sounds: normal S1, normal S2 and + murmur (2/6 ESM over precordium) Extremities: no edema Gastrointestinal (Abdomen): Inspection/Auscultation: normal bowel sounds; abdomen not distended Percussion/Palpation: abdomen soft; abdomen nontender Musculoskeletal: No acute arthritis in any joint Neurologic: normal touch/pain/proprioception and moves all extremities; no focal motor deficits and not confused Psychiatric: A+Ox3, euthymic affect Lymphatic: no cervical or axillary lymphadenopathy Results & Data Results & Data ([facility]) Vital Signs (Past 12 Hours) Vital Signs Temp Pulse Pulse Resp BP BP Pulse Ox 10/04/21 11:26 36.5 C 75 16 116/56 L 95 10/04/21 09:12 77 142/66 H 10/04/21 07:00 65 10/04/21 07:08 36.8 C 63 18 118/43 L 94 10/04/21 03:01 36.4 C L 87 18 110/56 L 97 O2 Del Method 10/04/21 11:26 Room Air 10/04/21 09:12 10/04/21 07:00 10/04/21 07:08 Room Air 10/04/21 03:01 Room Air Medications Administered Current Inpatient Medications Acetaminophen (Acetaminophen 325 Mg Tab) 650 mg PO Q4H PRN PRN Reason: Pain or Fever Stop: 10/25/21 20:48 Apixaban (Apixaban 2.5 Mg Tab) 2.5 mg PO BID COUNTS INCLUDE 234 BEDS AT [facility] Stop: 10/26/21 20:59 Last Admin: 10/04/21 08:25 Dose: 2.5 mg Atorvastatin Calcium (Atorvastatin 10 Mg Tab) 10 mg PO HS COUNTS INCLUDE 234 BEDS AT THE [facility] Stop: 10/26/21 20:59 Last Admin: 10/03/21 19:53 Dose: 10 mg Digoxin (Digoxin 0.125 Mg Tab) 0.125 mg PO DAILY@1600 COUNTS INCLUDE 234 BEDS AT THE [facility] Stop: 10/26/21 15:59 Last Admin: 10/03/21 16:34 Dose: 0.125 mg Diltiazem HCl (Diltiazem Hcl 30 Mg Tab) 30 mg PO BID COUNTS INCLUDE 234 BEDS AT THE [facility] Stop: 10/27/21 11:29 Last Admin: 10/04/21 09:12 Dose: 30 mg Docusate Sodium (Docusate Sodium 100 Mg Cap) 100 mg PO HS PRN PRN Reason: Constipation Stop: 10/27/21 11:56 Last Admin: 10/02/21 10:57 Dose: 100 mg Furosemide (Furosemide 20 Mg Tab) 20 mg PO 2XWK PRN PRN Reason: sweling and weight gain Stop: 10/25/21 20:48 Hydroxyzine HCl (Hydroxyzine Hcl 10 Mg Tab) 10 mg PO Q6 PRN PRN Reason: anxiety Stop: 10/28/21 15:45 Last Admin: 09/29/21 21:14 Dose: 10 mg Magnesium Hydroxide (Magnesium Hydroxide Susp 30 Ml Udc) 15 ml PO DAILY PRN PRN Reason: Constipation Stop: 10/27/21 11:56 Last Admin: 10/04/21 13:58 Dose: 15 ml Magnesium Oxide (Magnesium Oxide 400 Mg Tab) 400 mg PO QAM COUNTS INCLUDE 234 BEDS AT [facility] Stop: 10/26/21 08:59 Last Admin: 10/04/21 09:13 Dose: 400 mg Melatonin (Melatonin 3 Mg Tab) 6 mg PO HS COUNTS INCLUDE 234 BEDS AT [facility] Stop: 10/25/21 20:59 Last Admin: 10/03/21 19:57 Dose: 6 mg Methimazole (Methimazole 5 Mg Tablet) 10 mg PO TID COUNTS INCLUDE 234 BEDS AT [facility] Stop: 10/25/21 20:59 Last Admin: 10/04/21 13:55 Dose: 10 mg Metoclopramide HCl (Metoclopramide Hcl Inj 5 Mg/Ml 2 Ml Vial) 5 mg IV ONE PRN PRN Reason: nausea Stop: 10/28/21 14:40 Metoprolol Succinate (Metoprolol Succ 25mg Ext Rel Tab) 75 mg PO BID [facility] Stop: 10/27/21 11:29 Last Admin: 10/04/21 09:13 Dose: 75 mg Mirtazapine (Mirtazapine Tab 15 Mg Tab) 15 mg PO HS COUNTS INCLUDE 234 BEDS AT [facility] Stop: 10/25/21 20:59 Last Admin: 10/03/21 19:53 Dose: 15 mg Pantoprazole Sodium (Pantoprazole 40 Mg Tab) 40 mg PO QAM [facility] Stop: 10/26/21 08:59 Last Admin: 10/04/21 08:25 Dose: 40 mg Polyethylene Glycol (Polyethylene (Miralax) 17 Gm Pack) 17 gm PO DAILY@2100 COUNTS INCLUDE 234 BEDS AT [facility] Stop: 11/02/21 16:44 Last Admin: 10/03/21 19:52 Dose: 17 gm Potassium Chloride (Potassium Chloride 10 Meq Tabcr) 10 meq PO DAILY [facility] Stop: 11/04/21 08:59 Prednisone (Prednisone 10 Mg Tablet) 10 mg PO DAILY [facility] Stop: 11/02/21 08:59 Last Admin: 10/04/21 08:25 Dose: 10 mg Tramadol HCl (Tramadol Hcl 50 Mg Tablet) 25 mg PO Q4H PRN PRN Reason: Pain Stop: 10/25/21 22:34
[2021-10-04] MEDS: DIGOXIN 0.125 MG TAB PO SCH (16:33)
[2021-10-04] MEDS: POLYETHYLENE (MIRALAX) 17 GM PACK PO SCH (19:49)
[2021-10-04] MEDS: MELATONIN 3 MG TAB PO SCH (19:50)
[2021-10-04] MEDS: MIRTAZAPINE TAB 15 MG TAB PO SCH (19:51)
[2021-10-04] MEDS: ATORVASTATIN 10 MG TAB PO SCH (19:55)
[2021-10-05 07:35] LABS: Basophils # (auto) 0.03 K/uL (0-0.2); Basophils % (auto) 0.4 %; Eosinophils # (auto) 0.14 K/uL (0-0.50); Eosinophils % (auto) 1.7 %; Hematocrit (blood only) 36.1 % (34.1-44.9); Hemoglobin 11.8 g/dl (12.0-16.0); Immature Granulocytes # (auto) 0.04 K/uL (0.00-0.02); Immature Granulocytes % (auto) 0.5 %; Lymphocytes # (auto) 2.34 K/uL (1.2-3.4); Lymphocytes % (auto) 29.1 %; Mean Corpuscular Hemoglobin 27.4 pg (25.0-34.0); Mean Corpuscular Hgb Conc 32.7 g/dL (32.0-36.0); Mean Platelet Volume 9.8 fL (9.4-12.3); Monocytes # (auto) 0.74 K/uL (0.24-0.82); Monocytes % (auto) 9.2 %; Neutrophils # (auto) 4.76 K/uL (1.4-6.5); Neutrophils % (auto) 59.1 %; Platelet Count 241 K/uL (130-400); RDW Coefficient of Variation 12.9 % (11.5-14.5); White Blood Count 8.05 K/ul (4.8-10.8)
[2021-10-05 08:20] LABS: BUN Creatinine Ratio 34.4 (10-20); Calcium 9.1 mg/dl (8.5-10.1); Est GFR (African American) 93.2 ml/min; Est GFR (Non-African American) 80.4 ml/min; Magnesium 2.3 mg/dl (1.7-2.4); Potassium 4.1 mmol/L (3.5-5.1)
[2021-10-05] MEDS: APIXABAN 2.5 MG TAB PO SCH (08:46)
[2021-10-05] MEDS: dilTIAZem HCL 30 MG TAB PO SCH (08:46)
[2021-10-05] MEDS: methIMAzole 5 MG TABLET PO SCH ×2 (08:46→13:30)
[2021-10-05] MEDS: PANTOprazole 40 MG TAB PO SCH (08:46)
[2021-10-05] MEDS: METOPROLOL SUCC 25MG EXT REL TAB PO SCH (08:47)
[2021-10-05] MEDS: predniSONE 10 MG TABLET PO SCH (08:47)
[2021-10-05] MEDS: MAGNESIUM OXIDE 400 MG TAB PO SCH (08:52)
[2021-10-05] MEDS ORDERED: POTASSIUM CHLORIDE 10 MEQ TABCR PO SCH (09:00)
--- NOTE | 2021-10-05 10:24 | Hospitalist Progress Note ---
Date of Service October 05, 2021 Assessment & Plan (1) Chest pain: Plan: 89 year old female with history of A fib on Eliquis, CHFpEF, Hyperthyroidism, HTN presenting with weakness. CHEST PAIN ELEVATED TROPONIN Need to r/o ACS Received aspirin 325mg and was started on heparin drip S/P cardiac cath with no major vessel occluded Echo showed left ventricular wall is normal with EF 60- 65% Cardiology on board Heparin drip was discontinued then transition to eliquis Continue statin and metoprolol Clinically stable Denies any more chest pain and/or palpitation or shortness of breath Remains extremely weak and lethargic and getting frustrated with lack of mobility Has been ambulating in the room with a walker and also in the hallway without any symptoms of dizziness and/or palpitation PAROXYSMAL A FIB Initially started on intravenous amiodarone and subsequently amiodarone was discontinued due to hypothyroidism Rate controlled medications are continued with digoxin, metoprolol and diltiazem Continue Eliquis Heart rate is controlled at 66/min and the blood pressure is controlled No more cardiac symptoms UTI Urine culture from 09/23/21 growing Proteus and Klebsiella Ceftriaxone 2g IV changed to Cefazolin Plan to transition to PO abx Finish the course of antibiotic WEAKNESS Mostly due to UTI PT/OT eval Fall precaution Consider inpatient rehab Continues to be weak and lethargic-we will continue PT and OT evaluation Awaiting placement-refused from [facility] Peer to peer interview was done and the patient was refused to go to [facility] She wants to go home and she knows the risk of falling at home She mentioned that she will be very careful and moving around at home She will get home health nurse visit and also PT as an outpatient Risk and benefit of going home as discussed with the patient in detail and she is quite understanding Anxiety Her symptoms seems to related to her anxiety Continue hydroxyzine prn CHF Complaint of SOB No chest x-ray evidence of congestion and BNP minimally elevated at more than 300 Doubt any volume overload and/or CHF HYPERTHYROIDISM 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 Lozano in 2 weeks We will decrease prednisone HTN hold Lisinopril as BP on the lower side DVT prophylaxis On Eliquis Code status DNR Disposition Waiting for placement to rehab Admission and Anticipated Discharge Date Admission Date: September 25, 2021 Subjective 10/02/2021 Patient was seen and examined, chart, medications, telemetry reviewed. Patient sitting out of bed in chair. No chest pains, tachypalpitations, shortness of breath. Still becomes markedly fatigued with low-level exertion but walking about room with assistance using at walker Previously active at home Telemetry reveals atrial sensed ventricular paced rhythm no further atrial arrhythmias past 22 hours 10/03/2021 The patient was seen and examined in telemetry unit She feels a little better today but remains generally weak Denies any more dizziness with ambulation and she wants to do more physical therapy in order to get home Denies any other significant symptoms 10/04/2021 The patient was seen and examined in telemetry unit She has been feeling much better but remains extremely weak and lethargic She gets easily fatigued with shortness of breath on exertion She has refused from going to [facility] 10/05/2021 The patient was seen and examined in telemetry unit She has been ambulating in the room with a walker without any symptoms She was to go home with home health nurse and home PT Review of Systems Review of Systems: All systems reviewed and are unremarkable except as noted below Neurologic: Generally weak and lethargic Physical Exam Physical Exam: Sitting on a chair without any acute distress Constitutional: + thin; not ill appearing Eyes: PERRL, conjunctivae normal, anicteric sclerae ENMT: external ear and nose normal, oropharynx normal Neck: trachea midline, no thyromegaly Respiratory: no respiratory distress Auscultation: + diminished lung sounds and + crackles (Minimal bibasilar crackles) Cardiovascular: Rate/Rhythm: + irregularly irregular; not tachycardic Heart Sounds: normal S1, normal S2 and + murmur (2/6 ESM over precordium) Extremities: no edema Gastrointestinal (Abdomen): Inspection/Auscultation: normal bowel sounds; abdomen not distended Percussion/Palpation: abdomen soft; abdomen nontender Musculoskeletal: No acute arthritis in any joint Neurologic: normal touch/pain/proprioception and moves all extremities; no focal motor deficits and not confused Psychiatric: A+Ox3, euthymic affect Lymphatic: no cervical or axillary lymphadenopathy Results & Data Results & Data ([facility]) Vital Signs (Past 12 Hours) Vital Signs Temp Pulse Pulse Resp BP BP Pulse Ox 10/05/21 08:15 36.5 C 97 H 24 135/72 98 10/04/21 22:22 74 10/05/21 03:16 36.6 C 73 18 110/48 L 95 10/04/21 23:10 36.5 C 69 22 108/49 L 96 O2 Del Method 10/05/21 08:15 Room Air 10/04/21 22:22 10/05/21 03:16 Room Air 10/04/21 23:10 Room Air Laboratory Results Short CBC 10/05/21 Range/Units 07:13 WBC 8.05 (4.8-10.8) K/ul Hgb 11.8 L (12.0-16.0) g/dl Hct 36.1 (34.1-44.9) % Plt Count 241 (130-400) K/uL BMP 10/05/21 07:13 Sodium 141 Potassium 4.1 Chloride 106 Carbon Dioxide 31 BUN 21 Creatinine 0.61 Glucose 89 Calcium 9.1 Medications Administered Current Inpatient Medications Acetaminophen (Acetaminophen 325 Mg Tab) 650 mg PO Q4H PRN PRN Reason: Pain or Fever Stop: 10/25/21 20:48 Apixaban (Apixaban 2.5 Mg Tab) 2.5 mg PO BID [facility] Stop: 10/26/21 20:59 Last Admin: 10/05/21 08:46 Dose: 2.5 mg Atorvastatin Calcium (Atorvastatin 10 Mg Tab) 10 mg PO HS [facility] Stop: 10/26/21 20:59 Last Admin: 10/04/21 19:55 Dose: 10 mg Digoxin (Digoxin 0.125 Mg Tab) 0.125 mg PO DAILY@1600 [facility] Stop: 10/26/21 15:59 Last Admin: 10/04/21 16:33 Dose: 0.125 mg Diltiazem HCl (Diltiazem Hcl 30 Mg Tab) 30 mg PO BID [facility] Stop: 10/27/21 11:29 Last Admin: 10/05/21 08:46 Dose: 30 mg Docusate Sodium (Docusate Sodium 100 Mg Cap) 100 mg PO HS PRN PRN Reason: Constipation Stop: 10/27/21 11:56 Last Admin: 10/02/21 10:57 Dose: 100 mg Furosemide (Furosemide 20 Mg Tab) 20 mg PO 2XWK PRN PRN Reason: sweling and weight gain Stop: 10/25/21 20:48 Hydroxyzine HCl (Hydroxyzine Hcl 10 Mg Tab) 10 mg PO Q6 PRN PRN Reason: anxiety Stop: 10/28/21 15:45 Last Admin: 09/29/21 21:14 Dose: 10 mg Magnesium Hydroxide (Magnesium Hydroxide Susp 30 Ml Udc) 15 ml PO DAILY PRN PRN Reason: Constipation Stop: 10/27/21 11:56 Last Admin: 10/04/21 13:58 Dose: 15 ml Magnesium Oxide (Magnesium Oxide 400 Mg Tab) 400 mg PO QAM [facility] Stop: 10/26/21 08:59 Last Admin: 10/05/21 08:52 Dose: 400 mg Melatonin (Melatonin 3 Mg Tab) 6 mg PO HS [facility] Stop: 10/25/21 20:59 Last Admin: 10/04/21 19:50 Dose: 6 mg Methimazole (Methimazole 5 Mg Tablet) 10 mg PO TID [facility] Stop: 10/25/21 20:59 Last Admin: 10/05/21 08:46 Dose: 10 mg Metoclopramide HCl (Metoclopramide Hcl Inj 5 Mg/Ml 2 Ml Vial) 5 mg IV ONE PRN PRN Reason: nausea Stop: 10/28/21 14:40 Metoprolol Succinate (Metoprolol Succ 25mg Ext Rel Tab) 75 mg PO BID [facility] Stop: 10/27/21 11:29 Last Admin: 10/05/21 08:47 Dose: 75 mg Mirtazapine (Mirtazapine Tab 15 Mg Tab) 15 mg PO HS [facility] Stop: 10/25/21 20:59 Last Admin: 10/04/21 19:51 Dose: 15 mg Pantoprazole Sodium (Pantoprazole 40 Mg Tab) 40 mg PO QAM [facility] Stop: 10/26/21 08:59 Last Admin: 10/05/21 08:46 Dose: 40 mg Polyethylene Glycol (Polyethylene (Miralax) 17 Gm Pack) 17 gm PO DAILY@2100 [facility] Stop: 11/02/21 16:44 Last Admin: 10/04/21 19:49 Dose: Not Given Potassium Chloride (Potassium Chloride 10 Meq Tabcr) 10 meq PO DAILY [facility] Stop: 11/04/21 08:59 Last Admin: 10/05/21 08:46 Dose: 10 meq Prednisone (Prednisone 10 Mg Tablet) 10 mg PO DAILY [facility] Stop: 11/02/21 08:59 Last Admin: 10/05/21 08:47 Dose: 10 mg Tramadol HCl (Tramadol Hcl 50 Mg Tablet) 25 mg PO Q4H PRN PRN Reason: Pain Stop: 10/25/21 22:34
--- NOTE | 2021-10-06 08:43 | Discharge Summary ---
Date of Service October 05, 2021 Admission HPI Per Admitting Provider 89 year old female with history of A fib on Eliquis, CHFpEF, Hyperthyroidism, HTN presenting with weakness. Patient was just discharged from [facility] yesterday after evaluation for syncope and new diagnosis of hyperthyroidism. She was discharged on Methimazole, Prednisone. For A fib, digoxin was added, and Metoprolol tartrated was changed to Metoprolol succinate. At home, patient reports she felt very weak, could not stand up from bed. no fever/chills, headache, dizziness, chest pain, dyspnea, abdominal pain, nausea/vomiting, changes with urination/BM At the ER, patient also reports persistent chest pain- since last week. EKG did not reveal acute ischemia or infarct. Trop 170s, increased from 15 yesterday. On exam, patient reports moderate L sided chest pain and weakness. no other symptoms Admission Exam Per Admitting Provider Physical Exam: General- oriented x 3, not in distress, speaks in sentences with no effort or accessory muscle use appears frail Head- atraumatic Eyes- PERRL, EOMI, anicteric ENT- oropharynx clear Neck- supple, no JVD, no adenopathy, no thyromegaly; carotids +2/2, no bruits appreciated Lungs- clear to auscultation bilaterally, no rales/wheezes Heart- normal rate, irregularly irregular rhythm; no murmur, no gallop, no rub appreciated Abdomen- normal bowel sounds, nondistended, soft, nontender, no masses or hepatosplenomegaly Extremities- no pretibial edema, no calf tenderness; peripheral pulses intact Neuro- alert, oriented x 3; CN 2-12 grossly intact; motor 5/5 bilaterally;sensation 100% on all extremities; no other gross focal neurologic deficits Skin- warm & dry Principal Diagnosis Paroxysmal atrial fibrillation, weakness with ambulatory dysfunction, hypothyroidism, controlled CHF Discharge Exam Sitting on a chair without any acute distress Constitutional + thin; not ill appearing Eyes PERRL, conjunctivae normal, anicteric sclerae ENMT external ear and nose normal, oropharynx normal Neck trachea midline, no thyromegaly Respiratory no respiratory distress Auscultation: + diminished lung sounds and + crackles (Minimal bibasilar crackles) Cardiovascular Rate/Rhythm: + irregularly irregular; not tachycardic Heart Sounds: normal S1, normal S2 and + murmur (2/6 ESM over precordium) Extremities: no edema Gastrointestinal (Abdomen) Inspection/Auscultation: normal bowel sounds; abdomen not distended Percussion/Palpation: abdomen soft; abdomen nontender Neurologic normal touch/pain/proprioception and moves all extremities; no focal motor deficits and not confused Psychiatric A+Ox3, euthymic affect Lymphatic no cervical or axillary lymphadenopathy Discharge Data Allergies Allergy/AdvReac Type Severity Reaction Status Date / Time adhesive Allergy Intermediate RASH, Verified 09/25/21 18:39 REDDNESS AT SITE codeine Allergy Intermediate RASH, Verified 09/25/21 18:39 SEVERE ITCHING metronidazole Allergy Intermediate SEVERE Verified 09/25/21 18:39 YEAST/VAGINAL INFX morphine AdvReac Severe IRREGULAR Verified 09/25/21 18:39 HEART RATE, EXTREME SEDATION propoxyphene AdvReac Severe A-FIB Verified 09/25/21 18:39 Consultations 09/25/21 18:45 ED Decision to Admit Stat 09/25/21 18:59 Consult Cardiology Routine Procedures Performed Operation Date: 09/26/21 12:00 Actual Procedures s Cineradiography w/Routine Exam - Enoc Dupont MD p Cath, Left with Cors and Vent - Enoc Dupont MD Ordered Studies 09/26/21 10:46 CL Cath Imgs for PACS use only Stat Hospital Course (1) Chest pain: 89 year old female with history of A fib on Eliquis, CHFpEF, Hyperthyroidism, HTN presenting with weakness. CHEST PAIN ELEVATED TROPONIN Need to r/o ACS Received aspirin 325mg and was started on heparin drip S/P cardiac cath with no major vessel occluded Echo showed left ventricular wall is normal with EF 60- 65% Cardiology on board Heparin drip was discontinued then transition to eliquis Continue statin and metoprolol Clinically stable Denies any more chest pain and/or palpitation or shortness of breath Remains extremely weak and lethargic and getting frustrated with lack of mobility Has been ambulating in the room with a walker and also in the hallway without any symptoms of dizziness and/or palpitation PAROXYSMAL A FIB Initially started on intravenous amiodarone and subsequently amiodarone was discontinued due to hypothyroidism Rate controlled medications are continued with digoxin, metoprolol and diltiazem Continue Eliquis Heart rate is controlled at 66/min and the blood pressure is controlled No more cardiac symptoms UTI Urine culture from 09/23/21 growing Proteus and Klebsiella Ceftriaxone 2g IV changed to Cefazolin Plan to transition to PO abx Finish the course of antibiotic WEAKNESS Mostly due to UTI PT/OT eval Fall precaution Consider inpatient rehab Continues to be weak and lethargic-we will continue PT and OT evaluation Awaiting placement-refused from [facility] Peer to peer interview was done and the patient was refused to go to [facility] She wants to go home and she knows the risk of falling at home She mentioned that she will be very careful and moving around at home She will get home health nurse visit and also PT as an outpatient Risk and benefit of going home as discussed with the patient in detail and she is quite understanding Anxiety Her symptoms seems to related to her anxiety Continue hydroxyzine prn CHF Complaint of SOB No chest x-ray evidence of congestion and BNP minimally elevated at more than 300 Doubt any volume overload and/or CHF HYPERTHYROIDISM 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 Lozano in 2 weeks We will decrease prednisone HTN hold Lisinopril as BP on the lower side DVT prophylaxis On Eliquis Code status DNR Disposition Waiting for placement to rehab Total Time Total Time Spent Total Time Spent (In Minutes): 45 minutes Discharge Plan Discharge Items Patient Disposition: Home - Home Health Services Reason For Visit: SHORTNESS OF BREATH, CANNOT WALK Discharge Diagnosis: Paroxysmal atrial fibrillation, weakness with ambulatory dysfunction, hypothyroidism, controlled CHF Condition on Discharge: Fair Activity: Resume your previous activity Non-emergency contact: Primary Care Provider Call non-emergency contact if: you have any medication questions and your symptoms worsen Follow-up/Referrals: Chung Arrington DO [Primary Care Provider] - (Your doctor's office will call you with an appointment within 7 days) Diet: Heart Healthy and Low Sodium (2gm) Fluids: 1500ml (6 cups) Addtl Attending Provider Instructions: Please take precautions to avoid falls Use your walking device when you are ambulant Take your medications as advised Please keep appointments with your healthcare providers Your amiodarone has been stopped and metoprolol succinate is increased to 75 mg twice daily Your new medications will be Cardizem twice daily and you have prednisone has been decreased to 10 mg once daily Pending Studies at Discharge: No Stand-Alone Forms: My [facility] Mobility, Smoking Cessation Medications and DC Order Prescriptions: New metoprolol succinate 25 mg Tablet Extended Release 24 Hr 25 mg PO BID 30 Days Qty: 60 0RF Rx Instructions: Take 1 with 50mg Metoprolol succinate twice daily potassium chloride 10 mEq Tablet,Er Particles/Crystals 10 meq PO DAILY 30 Days Qty: 30 0RF atorvastatin 10 mg Tablet 10 mg PO HS 30 Days Qty: 30 0RF diltiazem HCl 30 mg Tablet 30 mg PO BID 30 Days Qty: 60 0RF Continued melatonin 10 mg tablet 10 mg PO HS PRN (Reason: Sleep) magnesium oxide 400 mg magnesium Tablet 400 mg PO QAM docusate sodium [Stool Softener] 100 mg Capsule 100 mg PO HS PRN (Reason: Constipation) omega 7-eyq-pub-fish oil [Fish Oil] 1,200 (144-216) mg Capsule 2 cap PO BID pantoprazole 40 mg Tablet,Delayed Release (Dr/Ec) 40 mg PO QAM Glucosamine Chondroitin 550-30-1 mg Capsule 2 cap PO QAM Eliquis 2.5 mg Tablet 2.5 mg PO BID magnesium hydroxide [Milk of Magnesia] 400 mg/5 mL Suspension 15 ml PO DAILY PRN (Reason: Constipation) digoxin [Digitek] 125 mcg (0.125 mg) Tablet 125 mcg PO DAILY@1600 Qty: 30 0RF metoprolol succinate 50 mg tablet extended release 24 hr 50 mg PO BID Qty: 60 0RF methimazole 10 mg tablet 10 mg PO TID Qty: 90 0RF furosemide [Lasix] 20 mg tablet 20 mg PO 2XWK PRN (Reason: sweling and weight gain) Qty: 30 0RF melatonin 3 mg Tablet 6 mg PO HS Qty: 30 0RF mirtazapine 15 mg Tablet 15 mg PO HS Qty: 30 0RF hydroxyzine HCl 10 mg Tablet 10 mg PO Q6 PRN (Reason: anxiety) Qty: 20 0RF Changed prednisone 20 mg Tablet 10 mg PO DAILY Qty: 30 0RF Rx Instructions: PER PT'S FAMILY "DID NOT GIVE THIS MED YET". Discontinued lisinopril 5 mg Tablet 5 mg PO QAM amiodarone 200 mg Tablet 100 mg PO QAM Discharge Orders: Discharge Order (Routine); Ordered 10/05/21 Ordered By: Maryan Balderas Admission Data Admit Date/Time: 09/25/21 19:24 Attending Provider: Maryan Balderas Admit Provider: Mirza Guevara Primary Care Provider: Chung Arrington Other Providers: Jose Joseph ; Mirza Guevara ; [facility] ; Jose L Cisse [facility] ; [facility] ; Yana Álvarez ; [facility] Other Interventions: Discharge Summary Assessment (RN) Last Done: 10/05/21 13:36
== END 2021-10-05 14:57 | disposition home health service (06) | DRG 287 ==
LOC: ED 16:17 → EDINP 19:24 → SUATTDRO 19:24 → 1E 09-26 14:34 → 2E 09-27 19:21

== ENCOUNTER 2021-11-14 19:44 | Observation (INO) ==
[2021-11-14] MEDS ORDERED: SODIUM CHLORIDE 0.9% 500 ML IV SCH (22:00)
--- NOTE | 2021-11-14 22:33 | XRay Report ---
SINGLE VIEW CHEST CLINICAL HISTORY: Generalized weakness. Atrial fibrillation. FINDINGS: An AP, portable, upright chest radiograph is compared to study dated 09/25/2021. Correlation is made with chest CT dated 09/15/2021. A 2-lead cardiac pacemaker is unchanged in position and parti ally obscures the left mid chest. The heart is enlarged noting atherosclerotic calcification of the t horacic aorta. The pulmonary vasculature is noncontrast. Chronic interstitial thickening is similar t o previous. There is bibasilar scarring/atelectasis. No airspace consolidation or large pleural effus ion is identified. No pneumothorax is seen. The skeletal structures are osteopenic. The bony thorax i s grossly intact. A right shoulder arthroplasty is in place. IMPRESSION: 1. Cardiomegaly and cardiac pacemaker without radiographic evidence of congestive failure. 2. No airspace consolidation or large pleural effusion is seen. 3. The concerning right apical pulmonary nodule seen on the recent chest CT CT is not apparent by x-r ay. ACT 112: Negative or not required by law. Electronically signed by: Lars Amaya M.D. 11/14/2021 10:32 PM
[2021-11-14 23:03] LABS: Basophils # (auto) 0.01 K/uL (0-0.2); Basophils % (auto) 0.1 %; Hematocrit (blood only) 42.9 % (34.1-44.9); Hemoglobin 14.6 g/dl (12.0-16.0); Immature Granulocytes # (auto) 0.18 K/uL (0.00-0.02); Immature Granulocytes % (auto) 1.6 %; Lymphocytes # (auto) 1.16 K/uL (1.2-3.4); Lymphocytes % (auto) 10.1 %; Mean Corpuscular Hemoglobin 27.6 pg (25.0-34.0); Mean Corpuscular Volume 81.1 fL (80.0-100.0); Mean Platelet Volume 9.9 fL (9.4-12.3); Monocytes # (auto) 0.69 K/uL (0.24-0.82); Neutrophils # (auto) 9.47 K/uL (1.4-6.5); Neutrophils % (auto) 82.2 %; Platelet Count 229 K/uL (130-400); RDW Coefficient of Variation 13.3 % (11.5-14.5); RDW Standard Deviation 39.2 fL (36.4-46.3); Red Blood Count 5.29 M/uL (3.93-5.22); White Blood Count 11.51 K/ul (4.8-10.8)
--- NOTE | 2021-11-14 23:05 | Emergency Department Note ---
History of Present Illness General Chief complaint: Fall Time Seen by Provider: 11/14/21 21:40 History of Present Illness 89-year-old female presents to the ED with a chief complaint of a fall. The patient states that she has been increasingly weak over the past week or so. She states that she has been getting around with a walker but that is becoming more difficult. She states that she actually went to a local nursing facility called [facility] to see about getting in there as a resident today. The pat ient today after getting home was having difficulty getting back into her house and fell. She states that she lives in a home with her 90-year-old who is also not very well. She is brought to the ED for evaluation due to her inability to help her self get up and her weakness. The patient suffered a skin tear to the right anterior leg and a few abrasions to the right hand. She did not hit her head. She is chronically on Eliquis for paroxysmal A. fib. She states that she cannot go back home tonight because she is too weak. Home Medications Medication Instructions Recorded Confirmed Type melatonin 10 mg tablet 10 mg PO HS PRN Sleep 10/26/18 09/25/21 History magnesium oxide 400 mg PO QAM 12/31/19 09/25/21 History docusate sodium 100 mg capsule 100 mg PO HS PRN Constipation 03/10/20 10/31/21 History (Stool Softener) omega 4-upm-wfp-fish oil 1,200 mg 2 cap PO BID 03/10/20 09/25/21 History (144 mg-216 mg) capsule (Fish Oil) apixaban 2.5 mg tablet (Eliquis) 2.5 mg PO BID 05/03/20 10/31/21 History glucosamine sulf dipot 2 cap PO QAM 05/03/20 09/25/21 History chlr,msm,chond 550 mg-C 30 mg-yennifer 1 mg capsule (Glucosamine Chondroitin) pantoprazole 40 mg tablet,delayed 40 mg PO QAM 05/03/20 09/25/21 History release magnesium hydroxide 400 mg/5 mL 15 ml PO DAILY PRN Constipation 05/25/20 09/25/21 History oral suspension (Milk of Magnesia) furosemide 20 mg tablet (Lasix) 20 mg PO 2XWK PRN sweling and 10/30/20 10/31/21 Rx weight gain #30 tabs hydroxyzine HCl 10 mg tablet 10 mg PO Q6 PRN anxiety #20 tabs 09/06/21 09/25/21 Rx melatonin 3 mg tablet 6 mg PO HS #30 tabs 09/06/21 09/25/21 Rx mirtazapine 15 mg tablet 15 mg PO HS #30 tabs 09/06/21 09/25/21 Rx digoxin 125 mcg (0.125 mg) tablet 125 mcg PO DAILY@1600 #30 tabs 09/24/21 10/31/21 Rx (Digitek) methimazole 10 mg tablet 10 mg PO TID #90 tabs 09/24/21 10/31/21 Rx metoprolol succinate 50 mg 50 mg PO BID #60 tabs 09/24/21 10/31/21 Rx tablet,extended release 24 hr alprazolam 0.25 mg tablet 0.25 mg PO DAILY PRN anxiety 10/31/21 10/31/21 History dexamethasone 2 mg tablet 2 mg PO BID #120 tabs 10/31/21 10/31/21 Rx Allergies Allergy/AdvReac Type Severity Reaction Status Date / Time adhesive Allergy Intermediate RASH, Verified 10/31/21 10:03 REDDNESS AT SITE codeine Allergy Intermediate RASH, Verified 10/31/21 10:03 SEVERE ITCHING metronidazole Allergy Intermediate SEVERE Verified 10/31/21 10:03 YEAST/VAGINAL INFX morphine AdvReac Severe IRREGULAR Verified 10/31/21 10:03 HEART RATE, EXTREME SEDATION propoxyphene AdvReac Severe A-FIB Verified 10/31/21 10:03 Past Med/Surg History Medical History 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 Bay History of lung cancer 1993- s/p RUL lung resection History of TIA (transient ischemic attack) History of trigger finger multiple to both hands Hyperlipidemia Hypertension Longstanding LBBB (left bundle branch block) Chronic per cardio records NSTEMI (non-ST elevated myocardial infarction) Pacemaker Placed Mar 16, 2020> [facility] > follows Dr. 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 Bay SOB (shortness of breath) TIA (transient ischemic attack) no further issues > 2018 > doesn't follow neuro Surgical History H/O section x1 H/O hemorrhoidectomy H/O ultrasound guided needle biopsy of lung History of cardiac cath 2010 - no obstructive CAD History of carpal tunnel release bilat History of cataract surgery bilat History of colon resection 8 inches > 2001 History of colonoscopy History of hysterectomy History of lung surgery 1993 > RUL > due to cancer > no chemo/radiation History of right shoulder replacement reverse History of spinal surgery Hx of cholecystectomy Hx of exploratory thoracotomy Family History Aunt Diabetes Other Abdominal aortic aneurysm Stroke Social History Smoking Status: Never smoker Tobacco Type: Cigarettes Second Hand Exposure: No; Hx Alcohol Use: No Hx Substance Use: No Preferred Language: Luxembourgish Communication Ability: Effective Visual Impairment: Limited Hearing Ability: Hard of Hearing Insurance Office Manager Required: Yes Beliefs That Will Affect Care: None marital status: Current Living Situation: Spouse How many Children do You have: 2 Feels Safe at Home: Yes Assistive Devices: None Review of Systems A total of 10 systems reviewed and were otherwise negative Physical Exam Vital Signs Vital Signs - 24 hr 11/14/21 19:52 11/14/21 22:00 11/14/21 22:52 Temperature 36.5 C Temperature Source Oral Pulse Rate 76 Pulse Rate [Apical] 62 Respiratory Rate 20 15 Blood Pressure 146/87 H Blood Pressure [Right Arm] 173/77 H Blood Pressure Mean 106 Blood Pressure Mean [Right Arm] 109 Blood Pressure Position Lying Pulse Oximetry 96 96 98 Oxygen Delivery Method Room Air Room Air Room Air Sepsis Recent Fever Within 48 Hours No Sepsis New/Unexplained Change in Mental Status N/A Sepsis Action Taken by Nursing No Action Required CONSTITUTIONAL/VITAL SIGNS: Reviewed / noted above. GENERAL: Non-toxic in appearance. Generalized weakness. INTEGUMENTARY: Warm, dry, and [place]. HEAD: Normocephalic. EYES: without scleral icterus or trauma. ENT/OROPHARYNX: clear and moist. LYMPHADENOPATHY/NECK: Is supple without lymphadenopathy or meningismus. RESPIRATORY: Clear to auscultation bilaterally. No increased work of breathing. CARDIOVASCULAR: Regular rate and rhythm. GI/ABDOMEN: Soft and nontender. No organomegaly or pulsatile mass. EXTREMITIES: Warm and well perfused. There is a skin tear to the right anterior leg. The skin was brought over the wound and a bandage was applied. No contamination. There are some abrasions to the right dorsal hand. A bandage was applied. NEUROLOGICAL: Intact without focal deficits. PSYCHIATRIC: normal affect. MUSCULOSKELETAL: Normally developed with good muscle tone. TRIAGE NURSING DOCUMENTATION REVIEWED. Course Administered Medications Discontinued Medications Sodium Chloride (Nss) 500 mls @ 999 mls/hr IV .Q31M BERNARDINO Stop: 11/14/21 22:30 Last Admin: 11/14/21 22:49 Dose: 999 mls/hr Documented By: SS Medical Decision Making Differential Diagnosis Differential includes acute coronary syndrome, myocardial infarction, CVA, TIA, anemia, infection, pneumonia, UTI, pyelonephritis, poor nutrition, dehydration, electrolyte disturbance,hypoglycemia. Differential includes close head injury, intracranial bleed, facial trauma, cervical spine trauma, chest and thoracic trauma, abdominal and intra-abdominal trauma, spine neurologic trauma, extremity trauma. Medical Records Attestation: I reviewed the patient's medical records. Home Medications Current Medication List: was personally reviewed by me Laboratory Data Attestation: I reviewed the patient's lab results. Result diagrams: 11/14/21 22:41 11/14/21 22:41 Lab Results 11/14/21 11/14/21 11/14/21 Range/Units 22:41 22:41 22:41 WBC 11.51 H (4.8-10.8) K/ul RBC 5.29 H (3.93-5.22) M/uL Hgb 14.6 (12.0-16.0) g/dl Hct 42.9 (34.1-44.9) % MCV 81.1 (80.0-100.0) fL MCH 27.6 (25.0-34.0) pg MCHC 34.0 (32.0-36.0) g/dL RDW Std Deviation 39.2 (36.4-46.3) fL RDW Coeff of Coleman 13.3 (11.5-14.5) % Plt Count 229 (130-400) K/uL MPV 9.9 (9.4-12.3) fL Immature Gran % (Auto) 1.6 % Neut % (Auto) 82.2 % Lymph % (Auto) 10.1 % [place] % (Auto) 6.0 % Eos % (Auto) 0.0 % Baso % (Auto) 0.1 % Neut # (Auto) 9.47 H (1.4-6.5) K/uL Lymph # (Auto) 1.16 L (1.2-3.4) K/uL [place] # (Auto) 0.69 (0.24-0.82) K/uL Eos # (Auto) 0.00 (0-0.50) K/uL Baso # (Auto) 0.01 (0-0.2) K/uL Immature Gran # (Auto) 0.18 H (0.00-0.02) K/uL Sodium 136 (136-145) mmol/L Potassium 4.0 (3.5-5.1) mmol/L Chloride 104 (98-107) mmol/L Carbon Dioxide 26 (21-32) mmol/L Anion Gap 6 (3-11) BUN 30 H (6-23) mg/dl Creatinine 0.47 L (0.6-1.2) mg/dl Est Cr Clr Drug Dosing 67.1 ml/min Est GFR ( Amer) 101.5 ml/min Est GFR (Non-Af Amer) 87.6 ml/min BUN/Creatinine Ratio 63.8 H (10-20) Glucose 100 H (70-99(Fasting)) mg/dl Calcium 9.0 (8.5-10.1) mg/dl Magnesium 2.3 (1.7-2.4) mg/dl Total Bilirubin 1.8 H (0.2-1.0) mg/dl AST 15 (13-39) U/L ALT 20 (7-52) U/L Alkaline Phosphatase 155 H (34-104) U/L Total Creatine Kinase 26 (26-192) U/L Total Protein 6.2 (6.0-8.3) gm/dl Albumin 3.7 (3.4-5.0) gm/dl Globulin 2.5 (2.5-4.0) gm/dl Albumin/Globulin Ratio 1.5 (0.9-2) TSH 0.010 L (0.300-4.500) uIu/ml SARS-CoV-2, RNA, NAAT (NEGATIVE) 11/14/21 Range/Units 22:54 WBC (4.8-10.8) K/ul RBC (3.93-5.22) M/uL Hgb (12.0-16.0) g/dl Hct (34.1-44.9) % MCV (80.0-100.0) fL MCH (25.0-34.0) pg MCHC (32.0-36.0) g/dL RDW Std Deviation (36.4-46.3) fL RDW Coeff of Coleman (11.5-14.5) % Plt Count (130-400) K/uL MPV (9.4-12.3) fL Immature Gran % (Auto) % Neut % (Auto) % Lymph % (Auto) % [place] % (Auto) % Eos % (Auto) % Baso % (Auto) % Neut # (Auto) (1.4-6.5) K/uL Lymph # (Auto) (1.2-3.4) K/uL [place] # (Auto) (0.24-0.82) K/uL Eos # (Auto) (0-0.50) K/uL Baso # (Auto) (0-0.2) K/uL Immature Gran # (Auto) (0.00-0.02) K/uL Sodium (136-145) mmol/L Potassium (3.5-5.1) mmol/L Chloride (98-107) mmol/L Carbon Dioxide (21-32) mmol/L Anion Gap (3-11) BUN (6-23) mg/dl Creatinine (0.6-1.2) mg/dl Est Cr Clr Drug Dosing ml/min Est GFR ( Amer) ml/min Est GFR (Non-Af Amer) ml/min BUN/Creatinine Ratio (10-20) Glucose (70-99(Fasting)) mg/dl Calcium (8.5-10.1) mg/dl Magnesium (1.7-2.4) mg/dl Total Bilirubin (0.2-1.0) mg/dl AST (13-39) U/L ALT (7-52) U/L Alkaline Phosphatase (34-104) U/L Total Creatine Kinase (26-192) U/L Total Protein (6.0-8.3) gm/dl Albumin (3.4-5.0) gm/dl Globulin (2.5-4.0) gm/dl Albumin/Globulin Ratio (0.9-2) TSH (0.300-4.500) uIu/ml SARS-CoV-2, RNA, NAAT NEGATIVE (NEGATIVE) Imaging Data Radiologist's Impression: Chest X-Ray 11/14/21 21:57 SINGLE VIEW CHEST CLINICAL HISTORY: Generalized weakness. Atrial fibrillation. FINDINGS: An AP, portable, upright chest radiograph is compared to study dated 09/25/2021. Correlation is made with chest CT dated 09/15/2021. A 2-lead cardiac pacemaker is unchanged in position and partially obscures the left mid chest. The heart is enlarged noting atherosclerotic calcification of the thoracic aorta. The pulmonary vasculature is noncontrast. Chronic interstitial thickening is similar to previous. There is bibasilar scarring/atelectasis. No airspace consolidation or large pleural effusion is identified. No pneumothorax is seen. The skeletal structures are osteopenic. The bony thorax is grossly intact. A right shoulder arthroplasty is in place. IMPRESSION: 1. Cardiomegaly and cardiac pacemaker without radiographic evidence of congestive failure. 2. No airspace consolidation or large pleural effusion is seen. 3. The concerning right apical pulmonary nodule seen on the recent chest CT CT is not apparent by x-ray. ACT 112: Negative or not required by law. Electronically signed by: Lars Amaya M.D. 11/14/2021 10:[address] scan of the head: Per the radiologist there is no acute intracranial hemorrhage. ECG Data Attestation: I personally reviewed and interpreted this ECG as follows: Additional Comments: Twelve-lead EKG: Per my interpretation shows atrial paced rhythm at a rate of 83. Left bundle branch block. No PVCs. Normal QTC. MDM Narrative 89-year-old female presents with a chief complaint of a fall and generalized weakness and progressive decline in her strength over the past week or so. She suffered a skin tear to the right leg and a couple abrasions of the right hand with her fall today. She is unable to get up. She lives with her at home. She went to a local [place] [facility] facility called [facility] to see if she could stay there today. She states that she might find out tomorrow if there able to take her. Chest x-ray did not show acute process. CBC was unremarkable. CT scan of the brain did not show acute process. Chest x-ray was negative for acute disease. EKG shows a paced atrial rhythm. BUN is 30. Chemistry panel was unremarkable. TSH is low but the patient is on synthetic thyroid medication. The patient was told the results. She will be seen by the hospitalist for further evaluation and care and hopeful placement in a nursing facility. Impression & Plan Generalized weakness, Fall, Ambulatory dysfunction Discharge Plan Visit Data Chief Complaint: Fall ED Provider: Tacho Man Discharge Problem: Generalized weakness, Fall, Ambulatory dysfunction Forms Stand Alone Forms: [facility] Prescriptions Prescriptions: No Action alprazolam 0.25 mg tablet 0.25 mg PO DAILY PRN (Reason: anxiety) dexamethasone 2 mg tablet 2 mg PO BID Qty: 120 0RF Rx Instructions: Take one tablet every 12 hours. melatonin 10 mg tablet 10 mg PO HS PRN (Reason: Sleep) magnesium oxide 400 mg magnesium Tablet 400 mg PO QAM docusate sodium [Stool Softener] 100 mg Capsule 100 mg PO HS PRN (Reason: Constipation) omega 2-pec-chv-fish oil [Fish Oil] 1,200 (144-216) mg Capsule 2 cap PO BID pantoprazole 40 mg Tablet,Delayed Release (Dr/Ec) 40 mg PO QAM Glucosamine Chondroitin 550-30-1 mg Capsule 2 cap PO QAM Eliquis 2.5 mg Tablet 2.5 mg PO BID magnesium hydroxide [Milk of Magnesia] 400 mg/5 mL Suspension 15 ml PO DAILY PRN (Reason: Constipation) digoxin [Digitek] 125 mcg (0.125 mg) Tablet 125 mcg PO DAILY@1600 Qty: 30 0RF metoprolol succinate 50 mg tablet extended release 24 hr 50 mg PO BID Qty: 60 0RF methimazole 10 mg tablet 10 mg PO TID Qty: 90 0RF furosemide [Lasix] 20 mg tablet 20 mg PO 2XWK PRN (Reason: sweling and weight gain) Qty: 30 0RF melatonin 3 mg Tablet 6 mg PO HS Qty: 30 0RF mirtazapine 15 mg Tablet 15 mg PO HS Qty: 30 0RF hydroxyzine HCl 10 mg Tablet 10 mg PO Q6 PRN (Reason: anxiety) Qty: 20 0RF Referrals Referrals: Chung Arrington DO [Primary Care Provider] -
[2021-11-14 23:23] LABS: Albumin Globulin Ratio 1.5 (0.9-2); Albumin Level 3.7 gm/dl (3.4-5.0); BUN Creatinine Ratio 63.8 (10-20); Bilirubin,Total 1.8 mg/dl (0.2-1.0); Creatinine Clr Calc Pharmacy 67.1 ml/min; Est GFR (African American) 101.5 ml/min; Est GFR (Non-African American) 87.6 ml/min; Globulin 2.5 gm/dl (2.5-4.0); Magnesium 2.3 mg/dl (1.7-2.4); Total Protein 6.2 gm/dl (6.0-8.3)
[2021-11-14 23:39] LABS: Thyroid Stimulating Hormone 0.01 uIu/ml (0.300-4.500)
[2021-11-14 23:55] LABS: Appearance Urine Clear (Clear); Bilirubin Urine Negative (Negative); Blood Urine Negative (Negative); Color Urine Yellow; Glucose Urine UA Negative (Negative); Ketones Urine Negative (Negative); Leukocyte Esterase Urine Negative (Negative); Nitrite Urine Negative (Negative); Protein Urine Negative (Negative); Specific Gravity Urine 1.018 (1.000-1.030); Urobilinogen Urine Negative (Negative)
[2021-11-15 00:18] LABS: T4 Free Thyroxine 1.6 ng/dl (0.61-1.60)
--- NOTE | 2021-11-15 03:03 | History and Physical Report ---
DATE OF ADMISSION: 11/15/2021. CHIEF COMPLAINT: Weakness, ambulatory dysfunction. 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 The patient lives with her 90-year-old who is also not well. She has been progressively getting weak, since last 1 week falling frequently and not able to ambulate, she is using a walker. She went to a local nursing facility called [facility] to see about getting there as a resident today and after coming back, she has difficulty getting back to house and she fell. She has a skin tear in the right wolfe region. She says she cannot go back home and she is very weak and tired. She could not take care of herself and want to go to group home. She saw [facility],the facility supposed to get records from her PCP and contact her tomorrow. Currently, denies any headache. No neck pain. No blurred visions, no earache, no runny nose, no sore throat, no cough, no difficulty swallowing. No chest pain, no shortness of breath. She gets short of breath on exertion and has some dizziness on standing. No nausea, no abdominal pain, not constipated. Normal bladder movements. ALLERGIES: ADHESIVE TAPE, CODEINE, METRONIDAZOLE, MORPHINE, PROPOXYPHENE. PAST MEDICAL HISTORY: As mentioned above. PAST SURGICAL HISTORY: Carpal tunnel surgery, colonoscopy, EGD with endoscopic ultrasound, left trigger finger release, lumbar back surgery, excision of melanoma in situ, injection of lumbosacral spine, partial colectomy with anastomosis, removal of interpulmonary foreign body in 1983. Cholecystectomy in 1962, sacroiliac joint injection, left shoulder surgery, right lung cancer status post right upper lobe lobectomy, total abdominal hysterectomy with removal of tubes. MEDICATIONS: The patient is on alprazolam 0.25 mg p.o. daily p.r.n., atorvastatin 10 mg p.o. daily, digoxin 125 mcg p.o. daily, diltiazem 30 mg p.o. b.i.d., Colace 100 mg p.o. at bedtime p.r.n., Eliquis 2.5 mg p.o. b.i.d., Lasix 20 mg 2 times daily p.r.n., glucosamine chondroitin 2 capsules p.o. a.m., hydroxyzine 10 mg p.o. q. 6 hours p.r.n., milk of magnesia 15 mL p.o. daily p.r.n., magnesium oxide 400 mg p.o. a.m., melatonin 10 mg p.o. at bedtime p.r.n., methimazole 10 mg p.o. t.i.d., metoprolol succinate 75 mg p.o. daily, fish oil 2 capsules p.o. b.i.d., potassium chloride 10 mEq p.o. daily. FAMILY HISTORY: Significant for aunt has diabetes; mother has heart disorder, father has stroke. SOCIAL HISTORY: , no smoking. Occasional wine. No drug use. REVIEW OF SYSTEMS: As per HPI. Rest of the review of systems is negative. PHYSICAL EXAMINATION: GENERAL: The patient is old and frail, not in acute distress. VITAL SIGNS: Temperature 36.5, pulse 64, respiratory rate 17, blood pressure 133/70, oxygen 96% on room air. HEENT: Pupils equal, round and reactive to light. Oral mucosa moist. NECK: No JVD, no neck masses. CARDIOVASCULAR: S1 and S2 heard. Regular rate and rhythm. No murmur, no gallop. RESPIRATORY SYSTEM: Normal AP diameter. No accessory muscle use. No wheezing, no crackles. ABDOMEN: Soft, bowel sounds present, nontender, no distention. CENTRAL NERVOUS SYSTEM: Alert and oriented. Speech is clear. No facial droop. Obeys simple commands. Insight is good. Moves extremities. EXTREMITIES: No edema, no erythema. DERM: Skin tear seen on the right wolfe region. LABORATORY DATA: WBC 11.5, hemoglobin 14.6, hematocrit 42.9, platelets 229. Sodium 136, potassium 4, chloride 104, bicarbonate 26, BUN 30, creatinine 0.4, serum glucose 100, calcium 9, magnesium 2.3, total bilirubin 1.8, AST 15, ALT 20, alkaline phosphatase 155. Total creatine kinase 26. TSH 0.01, free T4 1.6. Urinalysis negative. Digoxin level 1. SARS-CoV-2 rapid test negative. IMAGING DATA: CT of the head, preliminary report, no acute findings. 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 Chest x-ray: Cardiomegaly and cardiac pacemaker without radiographic evidence of congestive failure. No airspace consolidation or large pleural effusion is seen. EKG: Atrial paced rhythm rate of 83, left axis deviation, left bundle-branch block. ASSESSMENT AND PLAN: This is an 89-year-old female who presents with frequent falls and ambulatory dysfunction. 1. Ambulatory dysfunction, frequent falls and weakness. The patient wants to go to group home. She went to group home facility [facility], supposed to get a call back tomorrow,.Patient falling at home and doesn't want to go back home.will keep in the hospital. PT/OT. Social service to help with placement. 2. History of atrial fibrillation, rate controlled with Cardizem and metoprolol on Eliquis and on digoxin. 3. 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 Free T4 is okay. 4. History of hyperlipidemia, on statin. 5. History of tachybrady syndrome, status post pacemaker. 6. Hypertension: On diltiazem and metoprolol. We will follow the blood pressure. 7. History of chronic left bundle-branch block. 8. History of transient ischemic attack: On statin and Eliquis. 6. Deep venous thrombosis prophylaxis: On Eliquis. DISPOSITION: Closely monitor in the medical floor. PT/OT. Social service to help with discharge planning. CODE STATUS: DNR/DNI as per discussion with the patient. Job ID: [id number] [facility]
[2021-11-15] MEDS ORDERED: hydrOXYzine HCl 10 MG TAB PO PRN (03:11)
[2021-11-15] MEDS ORDERED: SODIUM CHLORIDE 0.9% 1000ML 1,000 ML IV SCH (03:11)
[2021-11-15] MEDS ORDERED: FUROSEMIDE 20 MG TAB PO PRN (03:11)
[2021-11-15] MEDS ORDERED: DOCUSATE SODIUM 100 MG CAP PO PRN (03:11)
[2021-11-15] MEDS: METOPROLOL SUCC 25MG EXT REL TAB PO SCH (08:35)
[2021-11-15] MEDS: methIMAzole 5 MG TABLET PO SCH ×3 (08:35→20:27)
[2021-11-15] MEDS: MAGNESIUM OXIDE 400 MG TAB PO SCH (08:36)
[2021-11-15] MEDS: APIXABAN 2.5 MG TAB PO SCH ×2 (08:36→20:28)
[2021-11-15] MEDS: POTASSIUM CHLORIDE 10 MEQ TABCR PO SCH (08:36)
[2021-11-15] MEDS: dilTIAZem HCL 30 MG TAB PO SCH ×2 (08:37→20:27)
[2021-11-15] MEDS: ATORVASTATIN 10 MG TAB PO SCH (08:37)
[2021-11-15 08:47] LABS: Basophils # (auto) 0.01 K/uL (0-0.2); Basophils % (auto) 0.1 %; Eosinophils # (auto) 0.01 K/uL (0-0.50); Eosinophils % (auto) 0.1 %; Hematocrit (blood only) 36.1 % (34.1-44.9); Hemoglobin 12.5 g/dl (12.0-16.0); Lymphocytes # (auto) 1.34 K/uL (1.2-3.4); Lymphocytes % (auto) 13.1 %; Mean Corpuscular Hemoglobin 27.7 pg (25.0-34.0); Mean Corpuscular Hgb Conc 34.6 g/dL (32.0-36.0); Mean Corpuscular Volume 79.9 fL (80.0-100.0); Mean Platelet Volume 9.8 fL (9.4-12.3); Monocytes # (auto) 0.93 K/uL (0.24-0.82); Monocytes % (auto) 9.1 %; Neutrophils # (auto) 7.83 K/uL (1.4-6.5); Neutrophils % (auto) 76.6 %; Platelet Count 197 K/uL (130-400); RDW Coefficient of Variation 13.5 % (11.5-14.5); RDW Standard Deviation 38.9 fL (36.4-46.3); Red Blood Count 4.52 M/uL (3.93-5.22); White Blood Count 10.22 K/ul (4.8-10.8)
[2021-11-15 09:16] LABS: BUN Creatinine Ratio 51.9 (10-20); Calcium 8.1 mg/dl (8.5-10.1); Creatinine Clr Calc Pharmacy 58.4 ml/min; Est GFR (Non-African American) 83.7 ml/min; Magnesium 2.1 mg/dl (1.7-2.4); Potassium 3.7 mmol/L (3.5-5.1)
--- NOTE | 2021-11-15 09:25 | CT Scan Report ---
CT OF THE HEAD WITHOUT CONTRAST CLINICAL HISTORY: Fall. COMPARISON STUDY: Head CT September 23, 2021. CT DOSE: 614.27 mGy.cm TECHNIQUE: Helical axial images of the head were obtained without IV contrast. Automated exposure con trol was utilized for the study. A dose lowering technique was utilized adhering to the principles o f ALARA. FINDINGS: No acute intracranial hemorrhage, midline shift or mass effect is present. White matter hyp odensity suggests small vessel disease. A left-sided craniotomy is noted with postoperative findings consistent with aneurysm clipping within the left supraclinoid region. The ventricular system is unre markable. The basal cisterns are patent. No extra-axial collections are present. There are no finding s to suggest acute dural sinus thrombosis or acute territorial infarct. No significant calvarial abno rmalities are present. Visualized portions of the sinuses and mastoid air cells are clear. IMPRESSION: No acute intracranial findings. ACT 112: Negative or not required by law. Electronically signed by: Isai Troy M.D. 11/15/2021 9:23 AM
--- NOTE | 2021-11-15 11:55 | Communication Note ---
Date of Service: November 15, 2021 Patient seen and examined Reports worsening chronic lower extremity weakness and paresthesia and will like placement Get PT/OT eval CM to work on placement Agree with other plans as detailed in H&P by Dr Long this morning
[2021-11-15] MEDS: DIGOXIN 0.125 MG TAB PO SCH (16:04)
[2021-11-15] MEDS: MAGNESIUM HYDROXIDE SUSP 30 ML UDC PO PRN (17:33)
[2021-11-15] MEDS: MELATONIN 3 MG TAB PO PRN (20:33)
[2021-11-15] MEDS: POLYETHYLENE (MIRALAX) 17 GM PACK PO PRN (20:33)
--- NOTE | 2021-11-15 21:14 | Electrocardiogram Report ---
Test Reason : Blood Pressure : / mmHG Vent. Rate : 083 BPM Atrial Rate : 083 BPM P-R Int : 190 ms QRS Dur : 138 ms QT Int : 388 ms P-R-T Axes : 048 -45 105 degrees QTc Int : 455 ms Atrial-paced rhythm Left axis deviation Left bundle branch block Abnormal ECG When compared with ECG of 28-SEP-2021 17:26, Electronic atrial pacemaker has replaced Sinus rhythm Confirmed by Woodrow Berrios ([id number]) on 11/15/2021 9:13:53 PM Also confirmed by Woodrow Berrios ([id number]), slot editor Paxton Sneed ([id number]) on 11/20/2021 10:25:46 AM Referred By: REFERRED SELF Confirmed By:Woodrow Berrios
[2021-11-16] MEDS ORDERED: HYDROmorphone INJ 0.5 MG/0.5 ML SYR IV STA (03:39)
[2021-11-16] MEDS: ACETAMINOPHEN 325 MG TAB PO PRN ×2 (03:46→12:40)
[2021-11-16] MEDS: ALPRAZolam 0.25 MG TABLET PO PRN ×2 (03:46→12:40)
--- NOTE | 2021-11-16 07:20 | Electrocardiogram Report ---
Test Reason : Blood Pressure : / mmHG Vent. Rate : 071 BPM Atrial Rate : 071 BPM P-R Int : 182 ms QRS Dur : 140 ms QT Int : 406 ms P-R-T Axes : 022 -48 106 degrees QTc Int : 441 ms Atrial-paced rhythm with occasional Premature ventricular complexes Left axis deviation Left bundle branch block Abnormal ECG When compared with ECG of 14-NOV-2021 19:55, Premature ventricular complexes are now Present Confirmed by Chalo Bernal ([id number]) on 11/16/2021 7:20:43 AM Referred By: REFERRED SELF Confirmed By:Alonso Bernal
[2021-11-16] MEDS: METOPROLOL SUCC 25MG EXT REL TAB PO SCH (09:18)
[2021-11-16] MEDS: POTASSIUM CHLORIDE 10 MEQ TABCR PO SCH (09:18)
[2021-11-16] MEDS: MAGNESIUM OXIDE 400 MG TAB PO SCH (09:19)
[2021-11-16] MEDS: ATORVASTATIN 10 MG TAB PO SCH (09:19)
[2021-11-16] MEDS: methIMAzole 5 MG TABLET PO SCH ×3 (09:19→20:42)
[2021-11-16] MEDS: dilTIAZem HCL 30 MG TAB PO SCH ×2 (09:19→20:41)
[2021-11-16] MEDS: APIXABAN 2.5 MG TAB PO SCH ×2 (09:20→20:42)
[2021-11-16] MEDS ORDERED: bisacodyL 10 MG SUPP PR STA (11:29)
[2021-11-16] MEDS: MAGNESIUM HYDROXIDE SUSP 30 ML UDC PO PRN (11:54)
[2021-11-16 12:01] LABS: Appearance Urine Turbid (Clear); Bacteria Urine Automated 4+ (Negative); Bilirubin Urine Negative (Negative); Blood Urine Negative (Negative); Color Urine Yellow; Epithelial Cell Urine Auto >30 /lpf (0-5); Glucose Urine UA Negative (Negative); Ketones Urine Negative (Negative); Leukocyte Esterase Urine 3+ (Negative); Nitrite Urine Positive (Negative); RBC Urine Automated 0-4 /hpf (0-4); Specific Gravity Urine 1.014 (1.000-1.030); Urobilinogen Urine Negative (Negative); pH Urine >= 9.0 (4.5-7.5)
[2021-11-16 12:12] LABS: Protein Urine 1+ (Negative)
[2021-11-16 12:17] LABS: Renal Epithelial Cells Urine 0-5 /lpf (0-5)
[2021-11-16] MEDS: dexAMETHasone 1 MG TAB PO SCH ×2 (12:34→20:42)
--- NOTE | 2021-11-16 12:34 | Hospitalist Progress Note ---
Date of Service November 16, 2021 Assessment & Plan (1) Generalized weakness: (2) Fall: (3) Ambulatory dysfunction: Plan: Fall at home Denied any LOC/syncope Related this to her chronic LE weakness especially on left This is being evaluated outpatient and has a scheduled neurology appt later this month PT/OT Patient has had multiple CT's in the past Head CT does not how any acute abnormalities CM working on placement (4) Amiodarone-induced thyroiditis: (5) Hyperthyroidism: Plan: Has been on methimazole Reviewed outpatient Endocrinology note Home dexamethasone 2mg po bid resumed. 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 (7) Paroxysmal atrial fibrillation: Plan: Continue home metoprolol, cardizem, digoxin Continue eliquis Follow up with Cardiology outpatient Has PPM for tachybrady (8) Constipation: Plan: Bowel regimen started per Patient's request Will monitor (9) TIA (transient ischemic attack): Plan: Continue statin (10) DVT prophylaxis: Plan: On eliquis Dysuria and UA suggestive of possible UTI Get UCx Start ceftriaxone Called daughter to update her per request but call was unanswered Admission and Anticipated Discharge Date Admission Date: November 15, 2021 Subjective Patient seen and examined Reports feeling tired Reports chronic left leg weakness/paresthesia Denied any chest pain, cough, shortness of breath Denied nausea, vomiting. Reports chronic intermittent abd pain Reports constipation. Stated she has not moved her bowels for a week. Reported dysuria this AM. Denied hematuria, freq Physical Exam Constitutional: + well hydrated; no acute distress Eyes: PERRL, conjunctivae normal, anicteric sclerae ENMT: external ear and nose normal, oropharynx normal Respiratory: normal respiratory effort, lungs clear to auscultation Cardiovascular: Rate/Rhythm: regular rate and regular rhythm S1 S2 Gastrointestinal (Abdomen): normal bowel sounds, soft, nontender, no hepatosplenomegaly Musculoskeletal: No pedal edema Left foot drop Minimal strength in left foot. Reduced strength in LE (L>R) Neurologic: PERRL, EOMI, accommodation nl, no face palsy, no dysarthria Psychiatric: A+Ox3, euthymic affect Results & Data Results & Data ([facility]) Vital Signs (Past 12 Hours) Vital Signs Temp Pulse Resp BP Pulse Ox O2 Del Method 11/16/21 08:00 36.4 C L 85 14 142/82 H 95 Room Air Laboratory Results Abnormal lab results 11/15/21 11/16/21 11/16/21 Range/Units 00:00 05:55 Unknown Troponin I High Sens 110.8 H* 64.2 H* D (0-14) pg/ml Urine Appearance Turbid A (Clear) Urine pH >= 9.0 H (4.5-7.5) Urine Protein 1+ H (Negative) Urine Nitrite Positive A (Negative) Ur Leukocyte Esterase 3+ H (Negative) Urine WBC (Auto) 10-30 H (0-5) /hpf U Hyaline Cast (Auto) 5-10 H (0-5) /lpf U Epithel Cells (Auto) >30 H (0-5) /lpf Urine Bacteria (Auto) 4+ H (Negative) (1) Constipation Constipation type: unspecified constipation type Qualified Code(s): K59.00 - Constipation, unspecified
[2021-11-16] MEDS: cefTRIAXone SODIUM 1,000 MG in DEXTROSE 5% 50 ML IV SCH (15:48)
[2021-11-16] MEDS: DIGOXIN 0.125 MG TAB PO SCH (15:53)
[2021-11-16] MEDS: DOCUSATE SODIUM 100 MG CAP PO SCH (20:42)
[2021-11-17 07:32] LABS: Hematocrit (blood only) 41.5 % (34.1-44.9); Hemoglobin 14.1 g/dl (12.0-16.0); Mean Corpuscular Hemoglobin 27.6 pg (25.0-34.0); Mean Corpuscular Volume 81.4 fL (80.0-100.0); Mean Platelet Volume 9.9 fL (9.4-12.3); Platelet Count 173 K/uL (130-400); RDW Coefficient of Variation 13.4 % (11.5-14.5); RDW Standard Deviation 39.6 fL (36.4-46.3); White Blood Count 7.61 K/ul (4.8-10.8)
[2021-11-17 08:04] LABS: BUN Creatinine Ratio 37.3 (10-20); Calcium 8.8 mg/dl (8.5-10.1); Creatinine Clr Calc Pharmacy 61.9 ml/min; Est GFR (African American) 98.8 ml/min; Est GFR (Non-African American) 85.3 ml/min; Potassium 4.7 mmol/L (3.5-5.1)
--- NOTE | 2021-11-17 09:25 | Hospitalist Progress Note ---
Date of Service November 17, 2021 Assessment & Plan (1) Generalized weakness: (2) Fall: (3) Ambulatory dysfunction: Plan: Fall at home Denied any LOC/syncope Related this to her chronic LE weakness especially on left This is being evaluated outpatient and has a scheduled neurology appt later this month PT/OT Patient has had multiple CT's in the past Head CT does not how any acute abnormalities CM working on placement (4) Amiodarone-induced thyroiditis: (5) Hyperthyroidism: Plan: Has been on methimazole Reviewed outpatient Endocrinology note Continue dexamethasone 2mg po bid Patient has follow up appt with Endocrinology (6) Elevated troponin I level: Plan: Trop is chronically elevated Denies chest pain 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 (7) Paroxysmal atrial fibrillation: Plan: Continue home metoprolol, cardizem, digoxin Continue [facility] Follow up with Cardiology outpatient Has PPM for tachybrady (8) Constipation: Plan: Had manual disimpaction yesterday after suppository and enema failed Continue bowel regimen (9) TIA (transient ischemic attack): Plan: Continue statin (10) UTI (urinary tract infection): Plan: Dysuria and UA suggestive of possible UTI UCx growing GNR Continue ceftriaxone (11) DVT prophylaxis: Plan: On [facility] Admission and Anticipated Discharge Date Admission Date: November 15, 2021 Subjective Patient seen and examined Reports feeling better today Denied any chest pain, cough, shortness of breath Denied nausea, vomiting, abd pain Had constipation which did not respond to meds yesterday and needed manual disimpaction yesterday evening Reported dysuria is improving. Denied hematuria, freq Reports chronic left leg weakness/paresthesia Physical Exam Constitutional: + well hydrated; no acute distress Eyes: PERRL, conjunctivae normal, anicteric sclerae ENMT: external ear and nose normal, oropharynx normal Respiratory: normal respiratory effort, lungs clear to auscultation Cardiovascular: Rate/Rhythm: regular rate and regular rhythm S1 S2 Gastrointestinal (Abdomen): normal bowel sounds, soft, nontender, no hepatosplenomegaly Musculoskeletal: No pedal edema Left foot drop Minimal strength in left foot. Reduced strength in LE (L>R) Neurologic: PERRL, EOMI, accommodation nl, no face palsy, no dysarthria Psychiatric: A+Ox3, euthymic affect Results & Data Results & Data ([facility]) Vital Signs (Past 12 Hours) Vital Signs Temp Pulse Resp BP Pulse Ox O2 Del Method 11/17/21 07:46 36.5 C 72 12 131/80 97 Room Air Laboratory Results Abnormal lab results 11/17/21 Range/Units 06:48 Creatinine 0.51 L (0.6-1.2) mg/dl BUN/Creatinine Ratio 37.3 H (10-20) Glucose 119 H (70-99(Fasting)) mg/dl (1) Constipation Constipation type: unspecified constipation type Qualified Code(s): K59.00 - Constipation, unspecified
[2021-11-17] MEDS: dexAMETHasone 1 MG TAB PO SCH ×2 (09:26→21:14)
[2021-11-17] MEDS: methIMAzole 5 MG TABLET PO SCH ×3 (09:26→21:14)
[2021-11-17] MEDS: APIXABAN 2.5 MG TAB PO SCH ×2 (09:26→21:14)
[2021-11-17] MEDS: METOPROLOL SUCC 25MG EXT REL TAB PO SCH (09:26)
[2021-11-17] MEDS: dilTIAZem HCL 30 MG TAB PO SCH ×2 (09:26→21:14)
[2021-11-17] MEDS: POTASSIUM CHLORIDE 10 MEQ TABCR PO SCH (09:27)
[2021-11-17] MEDS: MAGNESIUM OXIDE 400 MG TAB PO SCH (09:27)
[2021-11-17] MEDS: ATORVASTATIN 10 MG TAB PO SCH (09:27)
[2021-11-17] MEDS: cefTRIAXone SODIUM 1,000 MG in DEXTROSE 5% 50 ML IV SCH (13:43)
[2021-11-17] MEDS: DIGOXIN 0.125 MG TAB PO SCH (15:52)
[2021-11-17] MEDS: ALPRAZolam 0.25 MG TABLET PO PRN (21:14)
[2021-11-17] MEDS: DOCUSATE SODIUM 100 MG CAP PO SCH (21:14)
[2021-11-18 08:29] LABS: Creatinine Clr Calc Pharmacy 58.4 ml/min; Est GFR (Non-African American) 83.7 ml/min
[2021-11-18] MEDS: dexAMETHasone 1 MG TAB PO SCH ×2 (08:47→20:05)
[2021-11-18] MEDS: methIMAzole 5 MG TABLET PO SCH ×3 (08:48→20:06)
[2021-11-18] MEDS: DOCUSATE SODIUM/SENNA 50/8.6MG TAB PO SCH (08:48)
[2021-11-18] MEDS: dilTIAZem HCL 30 MG TAB PO SCH ×2 (08:48→20:05)
[2021-11-18] MEDS: APIXABAN 2.5 MG TAB PO SCH ×2 (08:48→20:07)
[2021-11-18] MEDS: METOPROLOL SUCC 25MG EXT REL TAB PO SCH (08:49)
[2021-11-18] MEDS: POTASSIUM CHLORIDE 10 MEQ TABCR PO SCH (08:49)
[2021-11-18] MEDS: MAGNESIUM OXIDE 400 MG TAB PO SCH (08:49)
[2021-11-18] MEDS: ATORVASTATIN 10 MG TAB PO SCH (08:49)
--- NOTE | 2021-11-18 12:53 | Hospitalist Progress Note ---
Date of Service November 18, 2021 Assessment & Plan (1) Generalized weakness: (2) Fall: (3) Ambulatory dysfunction: Plan: Fall at home Denied any LOC/syncope Related this to her chronic LE weakness especially on left This is being evaluated outpatient and has a scheduled neurology appt later this month on 11/28/21 PT/OT evaluation Patient has had multiple CT's in the past Head CT does not how any acute abnormalities CM working on placement (4) Amiodarone-induced thyroiditis: (5) Hyperthyroidism: Plan: Has been on methimazole Reviewed outpatient Endocrinology note Continue dexamethasone 2mg po bid Patient has follow up appt with Endocrinology (6) Elevated troponin I level: Plan: Trop is chronically elevated Denies chest pain 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 (7) Paroxysmal atrial fibrillation: Plan: Continue home metoprolol, cardizem, digoxin Continue eliquis Follow up with Cardiology outpatient Has PPM for tachybrady (8) Constipation: Plan: Had manual disimpaction on 11/16/21 after suppository and enema failed Reports she has been having BM daily since Continue bowel regimen (9) TIA (transient ischemic attack): Plan: Continue statin (10) UTI (urinary tract infection): Plan: Dysuria and UA suggestive of possible UTI UCx grew proteus Currently on ceftriaxone Change to cefdinir from tomorrow to complete treatment (11) DVT prophylaxis: Plan: On eliquis Called daughter and updated her Admission and Anticipated Discharge Date Admission Date: November 15, 2021 Subjective Patient seen and examined Reports she did not get much sleep last night but otherwise feeling good Denied any chest pain, cough, shortness of breath Denied nausea, vomiting, constipation Reports chronic intermittent abd pain Denies dysuria today. Denied hematuria, freq Reports chronic left leg weakness/paresthesia Physical Exam Constitutional: + well hydrated; no acute distress Eyes: PERRL, conjunctivae normal, anicteric sclerae ENMT: external ear and nose normal, oropharynx normal Respiratory: normal respiratory effort, lungs clear to auscultation Cardiovascular: Rate/Rhythm: regular rate and regular rhythm S1 S2 Gastrointestinal (Abdomen): normal bowel sounds, soft, nontender, no hepatosplenomegaly Musculoskeletal: No pedal edema Left foot drop Minimal strength in left foot. Reduced strength in LE (L>R) Neurologic: PERRL, EOMI, accommodation nl, no face palsy, no dysarthria Psychiatric: A+Ox3, euthymic affect Results & Data Results & Data ([facility]) Vital Signs (Past 12 Hours) Vital Signs Temp Pulse Resp BP Pulse Ox O2 Del Method 11/18/21 07:39 36.6 C 75 12 124/69 96 Room Air Laboratory Results Abnormal lab results 11/18/21 Range/Units 07:32 Creatinine 0.54 L (0.6-1.2) mg/dl (1) Constipation Constipation type: unspecified constipation type Qualified Code(s): K59.00 - Constipation, unspecified
[2021-11-18] MEDS: cefTRIAXone SODIUM 1,000 MG in DEXTROSE 5% 50 ML IV SCH (13:29)
[2021-11-18] MEDS: DIGOXIN 0.125 MG TAB PO SCH (16:57)
[2021-11-18] MEDS: DOCUSATE SODIUM 100 MG CAP PO SCH (20:02)
[2021-11-18] MEDS: ACETAMINOPHEN 325 MG TAB PO PRN (20:02)
[2021-11-18] MEDS: MELATONIN 3 MG TAB PO PRN (20:02)
[2021-11-18] MEDS: ALPRAZolam 0.25 MG TABLET PO PRN (20:04)
[2021-11-18] MEDS: CEFDINIR 300 MG CAP PO SCH (20:06)
[2021-11-19] MEDS: METOPROLOL SUCC 25MG EXT REL TAB PO SCH (08:38)
[2021-11-19] MEDS: DOCUSATE SODIUM/SENNA 50/8.6MG TAB PO SCH (08:39)
[2021-11-19] MEDS: POTASSIUM CHLORIDE 10 MEQ TABCR PO SCH (08:39)
[2021-11-19] MEDS: ATORVASTATIN 10 MG TAB PO SCH (08:39)
[2021-11-19] MEDS: dilTIAZem HCL 30 MG TAB PO SCH ×2 (08:39→21:54)
[2021-11-19] MEDS: dexAMETHasone 1 MG TAB PO SCH ×2 (08:40→21:54)
[2021-11-19] MEDS: CEFDINIR 300 MG CAP PO SCH ×2 (08:40→21:55)
[2021-11-19] MEDS: MAGNESIUM OXIDE 400 MG TAB PO SCH (08:40)
[2021-11-19] MEDS: APIXABAN 2.5 MG TAB PO SCH ×2 (08:40→21:54)
[2021-11-19] MEDS: methIMAzole 5 MG TABLET PO SCH ×3 (08:41→21:55)
[2021-11-19] MEDS: POLYETHYLENE (MIRALAX) 17 GM PACK PO PRN (16:10)
[2021-11-19] MEDS: DIGOXIN 0.125 MG TAB PO SCH (16:11)
--- NOTE | 2021-11-19 16:53 | Hospitalist Progress Note ---
Date of Service November 19, 2021 Assessment & Plan (1) Generalized weakness: (2) Fall: (3) Ambulatory dysfunction: Plan: Fall at home Denied any LOC/syncope Related this to her chronic LE weakness especially on left This is being evaluated outpatient and has a scheduled neurology appt later this month on 11/28/21 PT/OT evaluation Patient has had multiple CT's in the past Head CT does not how any acute abnormalities CM working on placement (4) Amiodarone-induced thyroiditis: (5) Hyperthyroidism: Plan: Has been on methimazole Reviewed outpatient Endocrinology note Continue dexamethasone 2mg po bid Patient has follow up appt with Endocrinology (6) Elevated troponin I level: Plan: Trop is chronically elevated Denies chest pain 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 (7) Paroxysmal atrial fibrillation: Plan: Continue home metoprolol, cardizem, digoxin Continue eliquis Follow up with Cardiology outpatient Has PPM for tachybrady (8) Constipation: Plan: Had manual disimpaction on 11/16/21 after suppository and enema failed Continue bowel regimen (9) TIA (transient ischemic attack): Plan: Continue statin (10) UTI (urinary tract infection): Plan: Dysuria and UA suggestive of possible UTI UCx grew proteus Currently on cefdinir from tomorrow to complete treatment (11) DVT prophylaxis: Plan: On eliquis CM working on discharge to [facility] Patient does not have any clinical signs/symptoms of Pulmonary tuberculosis based on history and exam at this time as inquired by CM for nursing facility Admission and Anticipated Discharge Date Admission Date: November 15, 2021 Subjective Patient seen and examined Sitting in chair Denied any new complaints Denied any chest pain, cough, shortness of breath Denied nausea, vomiting, constipation. Last BM was yesterday Denied abd pain today Dysuria is resolved. Denied hematuria, freq Reports chronic left leg weakness/paresthesia Physical Exam Constitutional: + well hydrated; no acute distress Eyes: PERRL, conjunctivae normal, anicteric sclerae ENMT: external ear and nose normal, oropharynx normal Respiratory: normal respiratory effort, lungs clear to auscultation Cardiovascular: Rate/Rhythm: regular rate and regular rhythm S1 S2 Gastrointestinal (Abdomen): normal bowel sounds, soft, nontender, no hepatosplenomegaly Neurologic: PERRL, EOMI, accommodation nl, no face palsy, no dysarthria Psychiatric: A+Ox3, euthymic affect Results & Data Results & Data ([facility]) Vital Signs (Past 12 Hours) Vital Signs Temp Pulse Pulse Resp BP Pulse Ox O2 Del Method 11/19/21 16:11 72 11/19/21 15:25 36.6 C 67 16 146/73 H 96 Room Air 11/19/21 07:20 Room Air 11/19/21 07:43 36.6 C 65 17 137/71 94 Room Air (1) Constipation Constipation type: unspecified constipation type Qualified Code(s): K59.00 - Constipation, unspecified
[2021-11-19] MEDS: ALPRAZolam 0.25 MG TABLET PO PRN (21:54)
[2021-11-19] MEDS: MELATONIN 3 MG TAB PO PRN (21:54)
[2021-11-19] MEDS: DOCUSATE SODIUM 100 MG CAP PO SCH (21:55)
[2021-11-19] MEDS: ACETAMINOPHEN 325 MG TAB PO PRN (21:55)
[2021-11-20] MEDS: APIXABAN 2.5 MG TAB PO SCH ×2 (08:11→20:06)
[2021-11-20] MEDS: methIMAzole 5 MG TABLET PO SCH ×3 (08:11→20:07)
[2021-11-20] MEDS: dexAMETHasone 1 MG TAB PO SCH ×2 (08:11→20:06)
[2021-11-20] MEDS: POTASSIUM CHLORIDE 10 MEQ TABCR PO SCH (08:12)
[2021-11-20] MEDS: CEFDINIR 300 MG CAP PO SCH ×2 (08:12→20:07)
[2021-11-20] MEDS: dilTIAZem HCL 30 MG TAB PO SCH ×2 (08:12→20:06)
[2021-11-20] MEDS: METOPROLOL SUCC 25MG EXT REL TAB PO SCH (08:13)
[2021-11-20] MEDS: MAGNESIUM OXIDE 400 MG TAB PO SCH (08:13)
[2021-11-20] MEDS: DOCUSATE SODIUM/SENNA 50/8.6MG TAB PO SCH (08:13)
[2021-11-20] MEDS: ATORVASTATIN 10 MG TAB PO SCH (08:13)
--- NOTE | 2021-11-20 14:10 | Hospitalist Progress Note ---
Date of Service November 20, 2021 Assessment & Plan (1) Generalized weakness: (2) Fall: (3) Ambulatory dysfunction: Plan: Fall at home Denied any LOC/syncope Related this to her chronic LE weakness especially on left This is being evaluated outpatient and has a scheduled neurology appt later this month on 11/28/21 Patient has had multiple CT's in the past Head CT does not how any acute abnormalities CM working on placement (4) Amiodarone-induced thyroiditis: (5) Hyperthyroidism: Plan: Has been on methimazole Reviewed outpatient Endocrinology note Continue dexamethasone 2mg po bid on discharge Patient has follow up appt with Endocrinology (6) Elevated troponin I level: Plan: Trop is chronically elevated Denies chest pain 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 (7) Paroxysmal atrial fibrillation: Plan: Continue home metoprolol, cardizem, digoxin Continue eliquis Follow up with Cardiology outpatient Has PPM for tachybrady (8) Constipation: Plan: Had manual disimpaction on 11/16/21 after suppository and enema failed Continue bowel regimen on discharge (9) TIA (transient ischemic attack): Plan: Continue statin (10) UTI (urinary tract infection): Plan: Dysuria and UA suggestive of possible UTI UCx grew proteus Currently on cefdinir to complete treatment (11) DVT prophylaxis: Plan: On eliquis CM working on discharge to [facility] Patient does not have any clinical signs/symptoms of Pulmonary tuberculosis based on history and exam at this time as inquired by CM for nursing facility Awaiting discharge Admission and Anticipated Discharge Date Admission Date: November 15, 2021 Subjective Patient seen and examined Denied any new complaints Denied any chest pain, cough, shortness of breath Denied nausea, vomiting, constipation. Had BM this AM Reports chronic intermittent abd pain Denied hematuria, freq, dysuria Reports chronic left leg weakness/paresthesia Physical Exam Constitutional: + well hydrated; no acute distress Eyes: PERRL, conjunctivae normal, anicteric sclerae ENMT: external ear and nose normal, oropharynx normal Respiratory: normal respiratory effort, lungs clear to auscultation Cardiovascular: Rate/Rhythm: regular rate and regular rhythm S1 S2 Gastrointestinal (Abdomen): normal bowel sounds, soft, nontender, no hepatosplenomegaly Musculoskeletal: No pedal edema Left foot drop Reduced strength in LE (L>R) Neurologic: PERRL, EOMI, accommodation nl, no face palsy, no dysarthria Psychiatric: A+Ox3, euthymic affect Results & Data Results & Data ([facility]) Vital Signs (Past 12 Hours) Vital Signs Temp Pulse Resp BP Pulse Ox O2 Del Method 11/20/21 07:50 Room Air 11/20/21 07:40 36.2 C L 66 16 152/81 H 96 Room Air (1) Constipation Constipation type: unspecified constipation type Qualified Code(s): K59.00 - Constipation, unspecified
[2021-11-20] MEDS: DIGOXIN 0.125 MG TAB PO SCH (17:40)
[2021-11-20] MEDS: DOCUSATE SODIUM 100 MG CAP PO SCH (20:07)
[2021-11-20] MEDS: ALPRAZolam 0.25 MG TABLET PO PRN (22:41)
[2021-11-21 07:39] LABS: Creatinine Clr Calc Pharmacy 64.4 ml/min; Est GFR (African American) 100.1 ml/min; Est GFR (Non-African American) 86.4 ml/min
[2021-11-21] MEDS: methIMAzole 5 MG TABLET PO SCH (08:56)
[2021-11-21] MEDS: dilTIAZem HCL 30 MG TAB PO SCH (08:56)
[2021-11-21] MEDS: CEFDINIR 300 MG CAP PO SCH (08:56)
[2021-11-21] MEDS: DOCUSATE SODIUM/SENNA 50/8.6MG TAB PO SCH (08:57)
[2021-11-21] MEDS: APIXABAN 2.5 MG TAB PO SCH (08:57)
[2021-11-21] MEDS: POTASSIUM CHLORIDE 10 MEQ TABCR PO SCH (08:57)
[2021-11-21] MEDS: dexAMETHasone 1 MG TAB PO SCH (08:57)
[2021-11-21] MEDS: METOPROLOL SUCC 25MG EXT REL TAB PO SCH (08:58)
[2021-11-21] MEDS: ATORVASTATIN 10 MG TAB PO SCH (08:58)
[2021-11-21] MEDS: MAGNESIUM OXIDE 400 MG TAB PO SCH (08:58)
--- NOTE | 2021-11-21 10:15 | Discharge Summary ---
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 The patient lives with her 90-year-old who is also not well. She has been progressively getting weak, since last 1 week falling frequently and not able to ambulate, she is using a walker. She went to a local nursing facility called [facility] to see about getting there as a resident today and after coming back, she has difficulty getting back to house and she fell. She has a skin tear in the right wolfe region. She says she cannot go back home and she is very weak and tired. She could not take care of herself and want to go to [facility]. She saw [facility],the facility supposed to get records from her PCP and contact her tomorrow. Currently, denies any headache. No neck pain. No blurred visions, no earache, no runny nose, no sore throat, no cough, no difficulty swallowing. No chest pain, no shortness of breath. She gets short of breath on exertion and has some dizziness on standing. No nausea, no abdominal pain, not constipated. Normal bladder movements. Admission Exam Per Admitting Provider GENERAL: The patient is old and frail, not in acute distress. VITAL SIGNS: Temperature 36.5, pulse 64, respiratory rate 17, blood pressure 133/70, oxygen 96% on room air. HEENT: Pupils equal, round and reactive to light. Oral mucosa moist. NECK: No JVD, no neck masses. CARDIOVASCULAR: S1 and S2 heard. Regular rate and rhythm. No murmur, no gallop. RESPIRATORY SYSTEM: Normal AP diameter. No accessory muscle use. No wheezing, no crackles. ABDOMEN: Soft, bowel sounds present, nontender, no distention. CENTRAL NERVOUS SYSTEM: Alert and oriented. Speech is clear. No facial droop. Obeys simple commands. Insight is good. Moves extremities. EXTREMITIES: No edema, no erythema. DERM: Skin tear seen on the right wolfe region. Principal Diagnosis proteus UTI, fall, generalized weakness Discharge Exam Gen: WD/WN, NAD, sitting in bedside chair, A&Ox3 HEENT: Normocephalic, atraumatic, conjunctivae moist, sclerae anicteric, mucous membranes moist Lung: Clear to Auscultation bilaterally, no wheezes/rales/rhonchi Heart: Regular rate, regular rhythm, no murmurs, rubs, or gallops Abdomen: Soft, NT, ND +BS x 4 Extremities: no edema Skin: Warm, no rash Discharge Data Allergies Allergy/AdvReac Type Severity Reaction Status Date / Time adhesive Allergy Intermediate RASH, Verified 10/31/21 10:03 REDDNESS AT SITE codeine Allergy Intermediate RASH, Verified 10/31/21 10:03 SEVERE ITCHING metronidazole Allergy Intermediate SEVERE Verified 10/31/21 10:03 YEAST/VAGINAL INFX morphine AdvReac Severe IRREGULAR Verified 10/31/21 10:03 HEART RATE, EXTREME SEDATION propoxyphene AdvReac Severe A-FIB Verified 10/31/21 10:03 Consultations 11/14/21 23:51 ED Decision to Admit Stat Ordered Studies 11/14/21 21:57 CT head/brain wo con Stat Hospital Course (1) Generalized weakness: (2) Fall: (3) Ambulatory dysfunction: (4) Amiodarone-induced thyroiditis: (5) Hyperthyroidism: (6) Elevated troponin I level: (7) Paroxysmal atrial fibrillation: (8) Constipation: (9) TIA (transient ischemic attack): (10) UTI (urinary tract infection): Plan This is an 89-year-old female with past medical history significant for hypertension, chronic left bundle-branch block, history of cerebral carotid artery aneurysm clipping in 1988, history of atrial flutter postoperatively 1988, hyperlipidemia, , history of TIA with transient aphasia in 2017, paroxysmal atrial fibrillation 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 Urine culture growing Proteus. We will continue cefdinir for total 7 days treatment. 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 Follow-up with endocrinology as scheduled and repeat thyroid function test. Also has follow-up scheduled with neurology for chronic lower extremity weakness on 11/28/2021. Did require manual disimpaction after suppository and enema failed so bowel regimen augmented. Continue that at discharge to facility. Patient is comfortable and hemodynamically stable at time of discharge. Total Time Total Time Spent Total Time Spent (In Minutes): 60 Discharge Plan Discharge Items Patient Disposition: Personal Custodial Reason For Visit: FALL Discharge Diagnosis: proteus UTI, fall, generalized weakness Activity: Resume your previous activity Non-emergency contact: Primary Care Provider Call non-emergency contact if: you have any medication questions, your symptoms worsen, your pain is not controlled and you have a fever Follow-up/Referrals: Chung Arrington DO [Primary Care Provider] - 11/25/21 12:00 pm Diet: Heart Healthy Addtl Attending Provider Instructions: You were admitted for fall and generalized weakness. Urine culture growing Proteus. Continue Cefdinir for a total of 7 days. Continue dexamethasone and methimazole for amiodarone-induced thyroiditis and follow up with endocrinology as scheduled. Follow up for chronic lower extremity weakness with neurology on 11/28/21. Continue bowel regimen for constipation at discharge. Patient does not have any clinical signs/symptoms of Pulmonary tuberculosis based on history and exam at this time as inquired by CM for nursing facility. OTHER INSTRUCTIONS: Seek medical attention if you have: * temperature above 101 * chest pain or trouble breathing * abdominal pain, nausea, vomiting * diarrhea, dark stools or bloody stools * any unanswered questions or concerns Call 911 if symptoms are severe. Please take good care of yourself. Call if you have any questions or problems. You can reach a [facility] hospitalist on duty at [facility] 24 hours a day by calling [phone]. Pending Studies at Discharge: No Stand-Alone Forms: My [facility], Smoking Cessation Skilled Items Patient informed of condition?: Yes DNR: Yes Discharge Level of Care: Other Communicable Disease: No Discharge Prognosis: Stable Lines: None Urinary Catheter: No Medications and DC Order Prescriptions: New metoprolol succinate 25 mg Tablet Extended Release 24 Hr 75 mg PO QAM Qty: 30 0RF cefdinir 300 mg Capsule 300 mg PO BID Qty: 4 0RF polyethylene glycol 3350 [Miralax] 17 gram Powder In Packet 17 g PO DAILY PRN (Reason: constipation) Qty: 14 0RF sennosides-docusate sodium [Senokot-S] 8.6-50 mg Tablet 1 tab PO QAM Qty: 30 0RF Rx Instructions: hold for loose stool dexamethasone 1 mg Tablet 2 mg PO BID Qty: 60 0RF Probiotic 10 billion cell capsule 100 mg PO DAILY Qty: 7 0RF Rx Instructions: Take once daily x 1 week. Continued digoxin [Digitek] 125 mcg (0.125 mg) Tablet 125 mcg PO DAILY@1600 Qty: 30 0RF atorvastatin 10 mg tablet 10 mg PO DAILY Qty: 30 0RF magnesium hydroxide [Milk of Magnesia] 400 mg/5 mL Suspension 15 ml PO DAILY PRN (Reason: Constipation) Qty: 30 0RF docusate sodium [Stool Softener] 100 mg Capsule 100 mg PO HS PRN (Reason: Constipation) Qty: 30 0RF furosemide [Lasix] 20 mg tablet 20 mg PO 2XWK PRN (Reason: sweling and weight gain) Qty: 30 0RF methimazole 10 mg tablet 10 mg PO TID Qty: 90 0RF diltiazem HCl 30 mg tablet 30 mg PO BID Qty: 60 0RF hydroxyzine HCl 10 mg Tablet 10 mg PO Q6 PRN (Reason: anxiety) Qty: 20 0RF potassium chloride 10 mEq tablet,ER particles/crystals 10 meq PO DAILY Qty: 30 0RF omega 3-xni-okt-fish oil [Fish Oil] 1,200 (144-216) mg Capsule 2 cap PO 3XWK Qty: 24 0RF melatonin 10 mg tablet 10 mg PO HS PRN (Reason: Sleep) Qty: 30 0RF Eliquis 2.5 mg Tablet 2.5 mg PO BID Qty: 60 0RF magnesium oxide 400 mg magnesium Tablet 400 mg PO QAM Qty: 30 0RF Glucosamine Chondroitin 550-30-1 mg Capsule 2 cap PO QAM Qty: 60 0RF Changed alprazolam 0.25 mg tablet 0.25 mg PO HS PRN (Reason: anxiety) Qty: 15 0RF Discontinued metoprolol succinate 50 mg tablet extended release 24 hr 75 mg PO DAILY Discharge Orders: Discharge Order (Routine); Ordered 11/21/21 Ordered By: Valerie Viveros/Other Patient Handouts: Treating Constipation, ED Constipation (Adult) Admission Data Admit Date/Time: 11/15/21 01:25 Attending Provider: Julio Cesar Rubio Admit Provider: Rafita Long Primary Care Provider: Chung Arrington Other Providers: Rafita Long ; [place] ; Jose L Cisse [facility] [place] ; Valerie Finley Other Interventions: Discharge Summary Assessment (RN) Last Done: 11/21/21 10:51 Supervising Physician Co-Signing Physician Notes Patient was seen and examined at bedside for generalized weakness, fall, ambulatory dysfunction, anemia diarrhea induced thyroiditis history, elevated troponin level. Patient was sitting up in chair, on room air, reported feeling more strong today, reported feeling better. Patient to complete her antibiotic course for her UTI. Patient to continue with physical therapy patient to follow-up with PCP/neurology/endocrinology as an outpatient. Patient does have LLE weakness. For which she follows neurology. Examination, patient on room air, heart/lung/abdomen examination fairly WNL, rest of the examination as above. LLE with foot brace. I have seen and examined the patient and have discussed the case with the provider above. I agree with the assessment and plan as stated.
== END 2021-11-21 11:09 | disposition home or self-care (01) ==
LOC: ED 19:44 → 3W 11-15 01:25 → SUATTDRO 11-15 01:25 → INTOOBSV 11-15 01:25 → 3W 11-15 02:12
DX: T46.2X5A Adverse effect of other antidysrhythmic drugs, initial encounter; R29.6 Repeated falls; Z66 Do not resuscitate; Z91.048 Other nonmedicinal substance allergy status; Z95.0 Presence of cardiac pacemaker; Z86.16 Personal history of COVID-19; Z88.5 Allergy status to narcotic agent; I48.0 Paroxysmal atrial fibrillation; Z86.73 Personal history of transient ischemic attack (TIA), and cerebral infarction without residual deficits; Z79.01 Long term (current) use of anticoagulants; B96.4 Proteus (mirabilis) (morganii) as the cause of diseases classified elsewhere; Z79.899 Other long term (current) drug therapy; N39.0 Urinary tract infection, site not specified; E06.4 Drug-induced thyroiditis; K59.00 Constipation, unspecified; R26.9 Unspecified abnormalities of gait and mobility; R53.1 Weakness

== ENCOUNTER 2021-11-25 11:15 | Inpatient (IN) ==
[2021-11-25 12:20] LABS: Basophils # (auto) 0.03 K/uL (0-0.2); Basophils % (auto) 0.2 %; Hematocrit (blood only) 45.2 % (34.1-44.9); Hemoglobin 15.4 g/dl (12.0-16.0); Immature Granulocytes # (auto) 0.39 K/uL (0.00-0.02); Immature Granulocytes % (auto) 2.4 %; Lymphocytes # (auto) 0.73 K/uL (1.2-3.4); Lymphocytes % (auto) 4.5 %; Mean Corpuscular Hemoglobin 27.3 pg (25.0-34.0); Mean Corpuscular Hgb Conc 34.1 g/dL (32.0-36.0); Mean Platelet Volume 9.7 fL (9.4-12.3); Monocytes # (auto) 0.74 K/uL (0.24-0.82); Monocytes % (auto) 4.6 %; Neutrophils # (auto) 14.18 K/uL (1.4-6.5); Neutrophils % (auto) 88.3 %; Platelet Count 213 K/uL (130-400); RDW Coefficient of Variation 14.1 % (11.5-14.5); RDW Standard Deviation 40.9 fL (36.4-46.3); Red Blood Count 5.65 M/uL (3.93-5.22); White Blood Count 16.07 K/ul (4.8-10.8)
[2021-11-25 12:23] LABS: Appearance Urine Clear (Clear); Bilirubin Urine Negative (Negative); Blood Urine Trace (Negative); Color Urine Dark Yellow; Epithelial Cell Urine Auto >30 /lpf (0-5); Glucose Urine UA Negative (Negative); Ketones Urine Trace (Negative); Leukocyte Esterase Urine Negative (Negative); Nitrite Urine Negative (Negative); Protein Urine 2+ (Negative); RBC Urine Automated 0-4 /hpf (0-4); Specific Gravity Urine 1.032 (1.000-1.030); Urobilinogen Urine Negative (Negative); pH Urine 5.5 (4.5-7.5)
--- NOTE | 2021-11-25 12:32 | Emergency Department Note ---
Impression & Plan Altered mental status Admit to the hospitalist ED Provider Note NAME: FAHAD RICH AGE: 89 SEX: F ARRIVES VIA: Ambulance INFORMANT: Patient; some history was obtained from the patient's daughter by way of the nurse on the phone ED PROVIDER(S): Zena Rosenthal DO CHIEF COMPLAINT: Altered mental status PLAN: Disposition: Admit to the hospitalist Condition: Fair MEDICAL DECISION MAKING: This is an 89-year-old female patient who presents to the emergency department with an altered mental status. Apparently she has had multiple falls over the past couple of days. She is being treated for urinary tract infection. She is currently living at [facility]. The patient has had acute altera tion in her mental status according to the daughter with whom I spoke with on the phone. Her mental status has dramatically changed over the past 4 days. She has exhibited bizarre behavior at the assisted living facility to the point that she spread body lotion all over her room and tore up paper into tiny pieces which is extremely unusual behavior for her. Patient is currently taking steroids for thyroiditis which may be contributing to this unusual behavior and could be consistent with psychosis. I discussed the case with the hospitalist who thought this could be the cause of her symptoms. Triage Nursing notes reviewed and agree with them. Additional history obtained from EMS and the patient's daughter Prior medical records reviewed Vital Signs: reviewed and remarkable for mild hypertension Differential diagnosis: Electrolyte abnormality, hypoglycemia, intracranial process, UTI, steroid- induced psychosis, acute delirium, metabolic encephalopathy Diagnostics interpreted by me: ECG: Atrial paced rhythm at [address] segment changes or signs of ischemia. Cardiac Monitoring: Atrial paced rhythm at 70 Laboratory studies: See below Imaging studies: As per radiology CT scan of the head: See radiology report Chest x-ray: See radiology report HPI: 89/F arrives for evaluation of altered mental status. Patient was transported here by EMS for significant lethargy. The patient was diagnosed with a urinary tract infection recently and is being treated with antibiotics. The patient also has had multiple falls for which she has been previously evaluated but had worsening mental status this morning and was transported here for evaluation. ROS: See above HPI for pertinent positives & negatives. A total of 10 systems reviewed and were otherwise negative. PAST MEDICAL HISTORY:See Below PAST SURGICAL HISTORY:See Below FAMILY HISTORY:See Below SOCIAL HISTORY: See list HOME MEDICATIONS:See list ALLERGIES: See list VITALS:See Below PHYSICAL EXAMINATION: HEENT: Head - normocephalic with a cephalhematoma over the right forehead. Pupils are equal, round, and reactive to light. Extraocular eye muscles are intact and sclera are anicteric. Nose - moist nasal mucosa without discharge. Mouth - moist buccal mucosa. Oropharynx is nonerythematous and there is no tonsillar exudate or edema noted. Neck: Supple; no cervical lymphadenopathy appreciated Heart: Regular rate and rhythm. There is a normal S1 and S2 with no murmurs, clicks, or gallops appreciated. Lungs: Clear to auscultation bilaterally with no wheezes, rales, or rhonchi. Abdomen: Soft, completely nontender, nondistended, with good bowel sounds. There are no palpable pulsatile masses or hepatosplenomegaly. There is no guarding, rigidity, or rebound noted. Extremities: No evidence of cyanosis, clubbing, or edema. There are easily palpable peripheral pulses. Neuro:The patient is awake and alert, oriented to person and place. She did know what month it was . Muscle strength is 5/5 in all 4 extremities. 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 There are no cerebellar signs. The patient's mental status seems to change at times. ED COURSE: Times/Reassessments: 1145: The patient was evaluated in room C4. A complete history and physical was performed. The patient had an IV lock initiated and labs were drawn several. She went for CT scan of the brain. I reviewed previou s medical records. I discussed the case with the patient's daughter on the phone. I discussed the case with the hospitalist. 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 Bay History of lung cancer 1993- s/p RUL lung resection History of TIA (transient ischemic attack) History of trigger finger multiple to both hands Hyperlipidemia Hypertension Longstanding LBBB (left bundle branch block) Chronic per cardio records NSTEMI (non-ST elevated myocardial infarction) Pacemaker Placed Mar 16, 2020> [facility] > follows Dr. 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 Bay SOB (shortness of breath) TIA (transient ischemic attack) no further issues > 2018 > doesn't follow neuro Surgical History H/O section x1 H/O hemorrhoidectomy H/O ultrasound guided needle biopsy of lung History of cardiac cath 2010 - no obstructive CAD History of carpal tunnel release bilat History of cataract surgery bilat History of colon resection 8 inches > 2001 History of colonoscopy History of hysterectomy History of lung surgery 1993 > RUL > due to cancer > no chemo/radiation History of right shoulder replacement reverse History of spinal surgery Hx of cholecystectomy Hx of exploratory thoracotomy Family History Aunt Diabetes Other Abdominal aortic aneurysm Stroke Social History Smoking Status: Never smoker Tobacco Type: Cigarettes Second Hand Exposure: No; Hx Alcohol Use: Yes Alcohol type: wine Hx Substance Use: No Preferred Language: Togolese Communication Ability: Effective Visual Impairment: Limited Hearing Ability: Hard of Hearing [employer]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 Beliefs That Will Affect Care: None marital status: Current Living Situation: Rehab Current Living Situation Comment: needs placement How many Children do You have: 2 Other Information That Helps Us Care for You: No Feels Safe at Home: Yes Safety Concerns: Feels Safe At This Time Assistive Devices: Walker and Wheelchair Allergies Allergies Allergy/AdvReac Type Severity Reaction Status Date / Time adhesive Allergy Intermediate RASH, Verified 10/31/21 10:03 REDDNESS AT SITE codeine Allergy Intermediate RASH, Verified 10/31/21 10:03 SEVERE ITCHING metronidazole Allergy Intermediate SEVERE Verified 10/31/21 10:03 YEAST/VAGINAL INFX morphine AdvReac Severe IRREGULAR Verified 10/31/21 10:03 HEART RATE, EXTREME SEDATION propoxyphene AdvReac Severe A-FIB Verified 10/31/21 10:03 Home Meds Previous Rx's Medication Instructions Recorded digoxin 125 mcg (0.125 mg) tablet 125 mcg PO DAILY@1600 #30 tabs 09/24/21 (Digitek) Lactobacillus acidophilus 10 100 mg PO DAILY #7 caps 11/21/21 billion cell capsule (Probiotic) alprazolam 0.25 mg tablet 0.25 mg PO HS PRN anxiety #15 tabs 11/21/21 apixaban 2.5 mg tablet (Eliquis) 2.5 mg PO BID #60 tabs 11/21/21 atorvastatin 10 mg tablet 10 mg PO DAILY #30 tabs 11/21/21 dexamethasone 1 mg tablet 2 mg PO BID #60 tabs 11/21/21 diltiazem HCl 30 mg tablet 30 mg PO BID #60 tabs 11/21/21 docusate sodium 100 mg capsule 100 mg PO HS PRN Constipation #30 11/21/21 (Stool Softener) caps furosemide 20 mg tablet (Lasix) 20 mg PO 2XWK PRN sweling and 11/21/21 weight gain #30 tabs glucosamine sulf dipot 2 cap PO QAM #60 caps 11/21/21 chlr,msm,chond 550 mg-C 30 mg-yennifer 1 mg capsule (Glucosamine Chondroitin) hydroxyzine HCl 10 mg tablet 10 mg PO Q6 PRN anxiety #20 tabs 11/21/21 magnesium hydroxide 400 mg/5 mL 15 ml PO DAILY PRN Constipation 11/21/21 oral suspension (Milk of Magnesia) #30 mL magnesium oxide 400 mg PO QAM #30 tabs 11/21/21 melatonin 10 mg tablet 10 mg PO HS PRN Sleep #30 tabs 11/21/21 methimazole 10 mg tablet 10 mg PO TID #90 tabs 11/21/21 metoprolol succinate 25 mg 75 mg PO QAM #30 tabs 11/21/21 tablet,extended release 24 hr omega 1-stv-hvj-fish oil 1,200 mg 2 cap PO 3XWK #24 caps 11/21/21 (144 mg-216 mg) capsule (Fish Oil) polyethylene glycol 3350 17 gram 17 g PO DAILY PRN constipation #14 11/21/21 oral powder packet (Miralax) ea potassium chloride 10 mEq 10 meq PO DAILY #30 tabs 11/21/21 tablet,extended release(part/cryst) sennosides 8.6 mg-docusate sodium 1 tab PO QAM #30 tabs 11/21/21 50 mg tablet (Senokot-S) Results & Data (ED) Vital Signs Vital Signs - 24 hr 10/10/22 11:18 11/25/21 11:18 11/25/21 12:00 Temperature 36.5 C Temperature Source Temporal Artery Scan Pulse Rate 76 Pulse Rhythm Regular Pulse Strength Normal Respiratory Rate 20 Respiratory Effort / Characteristics Non-Labored Respiratory Depth Normal Respiratory Pattern Regular Blood Pressure 158/92 H Blood Pressure Mean 114 Blood Pressure Position Lying Pulse Oximetry 95 Oxygen Delivery Method Room Air Room Air Room Air Sepsis Recent Fever Within 48 Hours No Sepsis New/Unexplained Change in Mental Status No Sepsis Action Taken by Nursing No Action Required Laboratory Data Result diagrams: 11/26/21 05:48 11/26/21 05:48 Lab Results 11/25/21 11/25/21 11/25/21 Range/Units 11:29 11:29 11:29 WBC 16.07 H (4.8-10.8) K/ul RBC 5.65 H (3.93-5.22) M/uL Hgb 15.4 (12.0-16.0) g/dl Hct 45.2 H (34.1-44.9) % MCV 80.0 (80.0-100.0) fL MCH 27.3 (25.0-34.0) pg MCHC 34.1 (32.0-36.0) g/dL RDW Std Deviation 40.9 (36.4-46.3) fL RDW Coeff of Coleman 14.1 (11.5-14.5) % Plt Count 213 (130-400) K/uL MPV 9.7 (9.4-12.3) fL Immature Gran % (Auto) 2.4 % Neut % (Auto) 88.3 % Lymph % (Auto) 4.5 % [place] % (Auto) 4.6 % Eos % (Auto) 0.0 % Baso % (Auto) 0.2 % Neut # (Auto) 14.18 H (1.4-6.5) K/uL Lymph # (Auto) 0.73 L (1.2-3.4) K/uL [place] # (Auto) 0.74 (0.24-0.82) K/uL Eos # (Auto) 0.00 (0-0.50) K/uL Baso # (Auto) 0.03 (0-0.2) K/uL Immature Gran # (Auto) 0.39 H (0.00-0.02) K/uL Sodium 139 (136-145) mmol/L Potassium 4.5 (3.5-5.1) mmol/L Chloride 104 (98-107) mmol/L Carbon Dioxide 27 (21-32) mmol/L Anion Gap 8 (3-11) BUN 34 H (6-23) mg/dl Creatinine 0.49 L (0.6-1.2) mg/dl Est Cr Clr Drug Dosing Not Reportable Est GFR ( Amer) 100.1 ml/min Est GFR (Non-Af Amer) 86.4 ml/min BUN/Creatinine Ratio 69.4 H (10-20) Glucose 108 H (70-99(Fasting)) mg/dl Calcium 9.2 (8.5-10.1) mg/dl Total Bilirubin 1.3 H (0.2-1.0) mg/dl AST 20 (13-39) U/L ALT 33 (7-52) U/L Alkaline Phosphatase 93 (34-104) U/L Total Protein 6.1 (6.0-8.3) gm/dl Albumin 3.9 (3.4-5.0) gm/dl Globulin 2.2 L (2.5-4.0) gm/dl Albumin/Globulin Ratio 1.8 (0.9-2) Procalcitonin (0-0.5) ng/ml TSH 0.084 L (0.300-4.500) uIu/ml Free T4 0.88 (0.61-1.60) ng/dl Urine Color Urine Appearance (Clear) Urine pH (4.5-7.5) Ur Specific [place] (1.000-1.030) Urine Protein (Negative) Urine Glucose (UA) (Negative) Urine Ketones (Negative) Urine Blood (Negative) Urine Nitrite (Negative) Urine Bilirubin (Negative) Urine Urobilinogen (Negative) Ur Leukocyte Esterase (Negative) Urine WBC (Auto) (0-5) /hpf Urine RBC (Auto) (0-4) /hpf U Hyaline Cast (Auto) (0-5) /lpf U Epithel Cells (Auto) (0-5) /lpf Urine Bacteria (Auto) (Negative) Ur Renal Epithelial Cell (0-5) /lpf Granular Casts (0) /lpf Urine Mucus (None Prsent) 11/25/21 11/25/21 Range/Units 11:29 11:29 WBC (4.8-10.8) K/ul RBC (3.93-5.22) M/uL Hgb (12.0-16.0) g/dl Hct (34.1-44.9) % MCV (80.0-100.0) fL MCH (25.0-34.0) pg MCHC (32.0-36.0) g/dL RDW Std Deviation (36.4-46.3) fL RDW Coeff of Coleman (11.5-14.5) % Plt Count (130-400) K/uL MPV (9.4-12.3) fL Immature Gran % (Auto) % Neut % (Auto) % Lymph % (Auto) % [place] % (Auto) % Eos % (Auto) % Baso % (Auto) % Neut # (Auto) (1.4-6.5) K/uL Lymph # (Auto) (1.2-3.4) K/uL [place] # (Auto) (0.24-0.82) K/uL Eos # (Auto) (0-0.50) K/uL Baso # (Auto) (0-0.2) K/uL Immature Gran # (Auto) (0.00-0.02) K/uL Sodium (136-145) mmol/L Potassium (3.5-5.1) mmol/L Chloride (98-107) mmol/L Carbon Dioxide (21-32) mmol/L Anion Gap (3-11) BUN (6-23) mg/dl Creatinine (0.6-1.2) mg/dl Est Cr Clr Drug Dosing Est GFR ( Amer) ml/min Est GFR (Non-Af Amer) ml/min BUN/Creatinine Ratio (10-20) Glucose (70-99(Fasting)) mg/dl Calcium (8.5-10.1) mg/dl Total Bilirubin (0.2-1.0) mg/dl AST (13-39) U/L ALT (7-52) U/L Alkaline Phosphatase (34-104) U/L Total Protein (6.0-8.3) gm/dl Albumin (3.4-5.0) gm/dl Globulin (2.5-4.0) gm/dl Albumin/Globulin Ratio (0.9-2) Procalcitonin < 0.05 (0-0.5) ng/ml TSH (0.300-4.500) uIu/ml Free T4 (0.61-1.60) ng/dl Urine Color Dark Yellow Urine Appearance Clear (Clear) Urine pH 5.5 (4.5-7.5) Ur Specific [place] 1.032 H (1.000-1.030) Urine Protein 2+ H (Negative) Urine Glucose (UA) Negative (Negative) Urine Ketones Trace H (Negative) Urine Blood Trace H (Negative) Urine Nitrite Negative (Negative) Urine Bilirubin Negative (Negative) Urine Urobilinogen Negative (Negative) Ur Leukocyte Esterase Negative (Negative) Urine WBC (Auto) 1-5 (0-5) /hpf Urine RBC (Auto) 0-4 (0-4) /hpf U Hyaline Cast (Auto) 5-10 H (0-5) /lpf U Epithel Cells (Auto) >30 H (0-5) /lpf Urine Bacteria (Auto) 1+ H (Negative) Ur Renal Epithelial Cell 0-5 (0-5) /lpf Granular Casts 1-5 H (0) /lpf Urine Mucus Present A (None Prsent) Administered Medications Acetaminophen (Acetaminophen 325 Mg Tab) 650 mg PO Q4H PRN PRN Reason: pain/fever Stop: 12/25/21 21:57 Last Admin: 11/25/21 23:05 Dose: 650 mg Documented By: [email or web address] Apixaban (Apixaban 2.5 Mg Tab) 2.5 mg PO BID BERNARDINO Stop: 12/25/21 20:59 Last Admin: 11/26/21 08:13 Dose: 2.5 mg Documented By: [id number] Admin: 11/25/21 23:06 Dose: 2.5 mg Documented By: [email or web address] Atorvastatin Calcium (Atorvastatin 10 Mg Tab) 10 mg PO DAILY BERNARDINO Stop: 12/26/21 08:59 Last Admin: 11/26/21 08:13 Dose: 10 mg Documented By: [id number] Dexamethasone (Dexamethasone 1 Mg Tab) 1 mg PO BID BERNARDINO Stop: 12/25/21 20:59 Last Admin: 11/26/21 08:13 Dose: 1 mg Documented By: [id number] Admin: 11/25/21 23:08 Dose: 1 mg Documented By: PLF Digoxin (Digoxin 0.125 Mg Tab) 0.125 mg PO DAILY@1600 [facility] Stop: 12/26/21 15:59 Last Admin: 11/26/21 16:58 Dose: 0.125 mg Documented By: [id number] Diltiazem HCl (Diltiazem Hcl 30 Mg Tab) 30 mg PO BID [facility] Stop: 12/25/21 20:59 Last Admin: 11/26/21 08:13 Dose: 30 mg Documented By: [id number] Admin: 11/25/21 23:07 Dose: 30 mg Documented By: PLF Docusate Sodium (Docusate Sodium 100 Mg Cap) 100 mg PO HS PRN PRN Reason: Constipation Stop: 12/25/21 19:34 Last Admin: 11/25/21 23:07 Dose: 100 mg Documented By: PLF Lactobacillus Acidophilus (Advanced Probiotic 1250 Mg Capsule) 2 cap PO DAILY [facility] Stop: 12/26/21 08:59 Last Admin: 11/26/21 08:14 Dose: 2 cap Documented By: [id number] Magnesium Oxide (Magnesium Oxide 400 Mg Tab) 400 mg PO QAM [facility] Stop: 12/26/21 08:59 Last Admin: 11/26/21 08:14 Dose: 400 mg Documented By: [id number] Methimazole (Methimazole 5 Mg Tablet) 10 mg PO BID [facility] Stop: 12/25/21 20:59 Last Admin: 11/26/21 08:14 Dose: 10 mg Documented By: [id number] Admin: 11/25/21 23:08 Dose: 10 mg Documented By: PLF Metoprolol Succinate (Metoprolol Succ 25mg Ext Rel Tab) 75 mg PO QAM [facility] Stop: 12/26/21 08:59 Last Admin: 11/26/21 08:14 Dose: 75 mg Documented By: [id number] Polyethylene Glycol (Polyethylene (Miralax) 17 Gm Pack) 17 gm PO DAILY PRN PRN Reason: constipation Stop: 12/25/21 19:34 Last Admin: 11/26/21 08:31 Dose: 17 gm Documented By: [id number] Potassium Chloride (Potassium Chloride 10 Meq Tabcr) 10 meq PO DAILY [facility] Stop: 12/26/21 08:59 Last Admin: 11/26/21 08:15 Dose: 10 meq Documented By: [id number] Senna/Docusate Sodium (Docusate Sodium/Senna 50/8.6mg Tab) 1 tab PO QAM BERNARDINO Stop: 12/26/21 08:59 Last Admin: 11/26/21 08:18 Dose: 1 tab Documented By: [id number] Discontinued Medications Sodium Chloride (Nss) 500 mls @ 999 mls/hr IV .Q31M ONE Stop: 11/25/21 13:48 Last Infusion: 11/25/21 14:20 Dose: 0 mls/hr Documented By: Admin: 11/25/21 13:40 Dose: 999 mls/hr Documented By: AP Ceftriaxone Sodium 1,000 mg/ (Dextrose) 60 mls @ 100 mls/hr IV NOW ONE; Protocol Stop: 11/25/21 20:35 Last Infusion: 11/25/21 20:44 Dose: 0 mls/hr Documented By: Admin: 11/25/21 20:08 Dose: 100 mls/hr Documented By: NEEL Melatonin (Melatonin 3 Mg Tab) 9 mg PO HS PRN PRN Reason: Sleep Stop: 12/25/21 21:33 Last Admin: 11/25/21 23:06 Dose: 9 mg Documented By: PLF Discharge Plan Visit Data Chief Complaint: Confusion Stated Complaint: AMS ED Provider: Zena Rosenthal Discharge Problem: Altered mental status Patient Disposition: Admitted As Inpatient Discharge Instructions Interventions: ED Discharge Assessment Last Done: 11/25/21 21:04 : Altered mental status Qualifiers: Altered mental status type: delirium Qualified Code(s): R41.0 - Disorientation, unspecified
[2021-11-25 12:41] LABS: Bacteria Urine Automated 1+ (Negative); Mucus Urine Present (None Prsent)
[2021-11-25 12:43] LABS: Renal Epithelial Cells Urine 0-5 /lpf (0-5)
--- NOTE | 2021-11-25 12:43 | CT Scan Report ---
CT head/brain wo con CLINICAL HISTORY: 89 years-old Female with fall. Acute head trauma status post fall TECHNIQUE: Multiple axial CT images of the head were obtained without contrast. A dose lowering tech nique was utilized adhering to the principles of ALARA. CT DOSE: 537.48 mGy.cm COMPARISON: Head CT 11/21/2021. FINDINGS: No acute intracranial hemorrhage, midline shift, intracranial mass, hydrocephalus, territorial ischem ia or abnormal extra-axial collection. 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 Involutional changes with ex vacuo ventriculomegaly. 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 No acute calvarial fracture. 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 The paranasal sinuses, mastoid air cells, and middle ear cavities are clear. Unremarkable so ft tissues. Prior bilateral lens repair. IMPRESSION: Chronic findings as above without acute intracranial abnormality or acute calvarial frac ture. ACT 112: Negative or not required by law. The above report was generated using voice recognition software. It may contain grammatical, syntax o r spelling errors. Electronically signed by: Chacho Schrader M.D. 11/25/2021 12:41 PM
[2021-11-25 12:47] LABS: Alanine Aminotransferase 33 U/L (7-52); Albumin Globulin Ratio 1.8 (0.9-2); Albumin Level 3.9 gm/dl (3.4-5.0); Alkaline Phosphatase 93 U/L (34-104); Anion Gap 8 (3-11); Aspartate Aminotransferase 20 U/L (13-39); BUN Creatinine Ratio 69.4 (10-20); Bilirubin,Total 1.3 mg/dl (0.2-1.0); Blood Urea Nitrogen 34 mg/dl (6-23); Calcium 9.2 mg/dl (8.5-10.1); Carbon Dioxide 27 mmol/L (21-32); Chloride 104 mmol/L (98-107); Est GFR (African American) 100.1 ml/min; Est GFR (Non-African American) 86.4 ml/min; Globulin 2.2 gm/dl (2.5-4.0); Glucose 108 mg/dl (70-99(Fasting)); Potassium 4.5 mmol/L (3.5-5.1); Sodium 139 mmol/L (136-145); Total Protein 6.1 gm/dl (6.0-8.3)
[2021-11-25 12:57] LABS: Thyroid Stimulating Hormone 0.084 uIu/ml (0.300-4.500)
[2021-11-25] MEDS ORDERED: SODIUM CHLORIDE 0.9% 500 ML IV ONE (13:18)
--- NOTE | 2021-11-25 13:43 | XRay Report ---
XR chest 1V portable HISTORY: Confusion. weakness COMPARISON: None. FINDINGS: No pneumothorax. No pleural effusions. The heart is normal in size. Left-sided dual-chamber pacemaker. Right shoulder prosthesis again noted. No new focal lung consolidations to suggest pneumo keisha. No evidence for pulmonary edema. Redemonstration of the 8 mm right apical pulmonary nodule. IMPRESSION: 1. No acute process within the chest. 2. Redemonstration of the concerning 8 mm right apical pulmonary nodule. ACT 112: Negative or not required by law. Electronically signed by: Elliot Singh M.D. 11/25/2021 1:41 PM
[2021-11-25 13:54] LABS: T4 Free Thyroxine 0.88 ng/dl (0.61-1.60)
--- NOTE | 2021-11-25 15:54 | Electrocardiogram Report ---
Test Reason : Blood Pressure : / mmHG Vent. Rate : 069 BPM Atrial Rate : 069 BPM P-R Int : 176 ms QRS Dur : 136 ms QT Int : 424 ms P-R-T Axes : -16 -45 124 degrees QTc Int : 454 ms Atrial-paced rhythm Left axis deviation Non-specific intra-ventricular conduction delay Abnormal ECG When compared with ECG of 21-NOV-2021 19:32, No significant change Confirmed by Paulo Woodward ([id number]) on 11/25/2021 3:54:32 PM Referred By: REFERRED SELF Confirmed By:Paulo Woodward
--- NOTE | 2021-11-25 17:40 | History & Physical Report ---
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: (7) LBBB (left bundle branch block): Plan This is an 89-year-old female with past medical history significant for hypertension, chronic left bundle-branch block, history of cerebral carotid artery aneurysm clipping in 1988, history of atrial flutter postoperatively 1988, hyperlipidemia, history of TIA with transient aphasia in 2017, paroxysmal atrial fibrillation 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 Delirium Possible UTI Likely multifactorial given ongoing steroids, recent infection and elderly patient with multiple hospitalizations and recent move to personal care facility CT head without acute intracranial abnormality In setting of recent proteus UTI with completed treatment on 11/23 UA appears contaminated, repeat urine and blood cultures pending Leukocytosis of 16K, steroids likely contributing Will give empiric dose of rocephin this evening Have a call out to endocrine to see if steroids could possibly be tapered Generalize weakness Ambulatory dysfunction Ambulates with walker, has chronic LE weakness with neuro follow up scheduled for this week Fall precautions, PT/OT while admitted Amiodarone-induced thyroiditis Hyperthyroidism Has been on methimazole, dexamethasone 2mg BID Reviewed outpatient Endocrinology note Paroxysmal atrial fibrillation Continue home metoprolol, Cardizem, digoxin Continue Eliquis Pacemaker s/p tachy lizeth syndrome History of constipation Required manual disimpaction during previous admission so bowel regimen augmented No issues with new regimen per patient. Had a bowel movement in ED this evening TIA (transient ischemic attack) Continue statin Updated daughter Marianela over the phone. DVT Ppx: Eliquis Code status: DNR/DNI PCP: Chris Dispo: Admitted to med/surg Patient seen in collaboration with Dr. Rubio. Please see addendum. 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 was recently admitted for a fall and found to have Proteus UTI. Was discharged to personal care facility on 11/21/2021 with 2 days remaining of antibiotic. Per discussion with daughter, patient had a fall later that same evening of discharge when ambulating with walker and was evaluated in the ED with negative CT and sent back to facility. Over the course the next few days, patient became progressively confused and agitated to the point that last night she ripped up papers and spread lotion on the floor. Facility became concerned that they would not be able to provide adequate care and sent to ED for further evaluation. During interview, patient is alert and oriented to person, place and time but only intermittently oriented to situation. At some points of questioning patient thinks she was at home and at other points remembers being in personal detention. Denies any pain. Reports weakness in left lower extremity that is known and chronic. Has been on steroids for amiodarone induced thyroiditis as per endocrinology. No fever, chills, lightheadedness, chest pain, shortness of breath, nausea, vomiting, abdominal pain, dysuria diarrhea or constipation. Allergies Allergy/AdvReac Type Severity Reaction Status Date / Time adhesive Allergy Intermediate RASH, Verified 10/31/21 10:03 REDDNESS AT SITE codeine Allergy Intermediate RASH, Verified 10/31/21 10:03 SEVERE ITCHING metronidazole Allergy Intermediate SEVERE Verified 10/31/21 10:03 YEAST/VAGINAL INFX morphine AdvReac Severe IRREGULAR Verified 10/31/21 10:03 HEART RATE, EXTREME SEDATION propoxyphene AdvReac Severe A-FIB Verified 10/31/21 10:03 Home Medications Medication Instructions Recorded Confirmed Type digoxin 125 mcg (0.125 mg) tablet 125 mcg PO DAILY@1600 #30 tabs 09/24/21 11/15/21 Rx (Digitek) Lactobacillus acidophilus 10 100 mg PO DAILY #7 caps 11/21/21 Rx billion cell capsule (Probiotic) alprazolam 0.25 mg tablet 0.25 mg PO HS PRN anxiety #15 tabs 11/21/21 Rx apixaban 2.5 mg tablet (Eliquis) 2.5 mg PO BID #60 tabs 11/21/21 Rx atorvastatin 10 mg tablet 10 mg PO DAILY #30 tabs 11/21/21 Rx cefdinir 300 mg capsule 300 mg PO BID #4 caps 11/21/21 Rx dexamethasone 1 mg tablet 2 mg PO BID #60 tabs 11/21/21 Rx diltiazem HCl 30 mg tablet 30 mg PO BID #60 tabs 11/21/21 Rx docusate sodium 100 mg capsule 100 mg PO HS PRN Constipation #30 11/21/21 Rx (Stool Softener) caps furosemide 20 mg tablet (Lasix) 20 mg PO 2XWK PRN sweling and 11/21/21 Rx weight gain #30 tabs glucosamine sulf dipot 2 cap PO QAM #60 caps 11/21/21 Rx chlr,msm,chond 550 mg-C 30 mg-yeninfer 1 mg capsule (Glucosamine Chondroitin) hydroxyzine HCl 10 mg tablet 10 mg PO Q6 PRN anxiety #20 tabs 11/21/21 Rx magnesium hydroxide 400 mg/5 mL 15 ml PO DAILY PRN Constipation 11/21/21 Rx oral suspension (Milk of Magnesia) #30 mL magnesium oxide 400 mg PO QAM #30 tabs 11/21/21 Rx melatonin 10 mg tablet 10 mg PO HS PRN Sleep #30 tabs 11/21/21 Rx methimazole 10 mg tablet 10 mg PO TID #90 tabs 11/21/21 Rx metoprolol succinate 25 mg 75 mg PO QAM #30 tabs 11/21/21 Rx tablet,extended release 24 hr omega 6-yak-uci-fish oil 1,200 mg 2 cap PO 3XWK #24 caps 11/21/21 Rx (144 mg-216 mg) capsule (Fish Oil) polyethylene glycol 3350 17 gram 17 g PO DAILY PRN constipation #14 11/21/21 Rx oral powder packet (Miralax) ea potassium chloride 10 mEq 10 meq PO DAILY #30 tabs 11/21/21 Rx tablet,extended release(part/cryst) sennosides 8.6 mg-docusate sodium 1 tab PO QAM #30 tabs 11/21/21 Rx 50 mg tablet (Senokot-S) Past Med/Surg History Medical History Aneurysm brain> surgery to repair at [place] > 1988 Per records "History of cerebral carotid artery aneurysm clipping 1988 " COVID Dysarthria GERD (gastroesophageal reflux disease) Heart failure follows Dr. Bay History of lung cancer 1993- s/p RUL lung resection History of TIA (transient ischemic attack) History of trigger finger multiple to both hands Hyperlipidemia Hypertension Longstanding LBBB (left bundle branch block) Chronic per cardio records NSTEMI (non-ST elevated myocardial infarction) Pacemaker Placed Mar 16, 2020> [facility] > follows Dr. 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 Bay SOB (shortness of breath) TIA (transient ischemic attack) no further issues > 2017 > doesn't follow neuro Surgical History H/O section x1 H/O hemorrhoidectomy H/O ultrasound guided needle biopsy of lung History of cardiac cath 2010 - no obstructive CAD History of carpal tunnel release bilat History of cataract surgery bilat History of colon resection 8 inches > 2001 History of colonoscopy History of hysterectomy History of lung surgery 1993 > RUL > due to cancer > no chemo/radiation History of right shoulder replacement reverse History of spinal surgery Hx of cholecystectomy Hx of exploratory thoracotomy Family History Aunt Diabetes Other Abdominal aortic aneurysm Stroke Social History Smoking Status: Unknown if ever smoked Tobacco Type: Cigarettes Second Hand Exposure: No; Hx Alcohol Use: No Hx Substance Use: No Preferred Language: Welsh Communication Ability: Effective Visual Impairment: Limited Hearing Ability: Hard of Hearing Compliance Clerk Required: No Beliefs That Will Affect Care: None marital status: Current Living Situation: Spouse Current Living Situation Comment: needs placement How many Children do You have: 2 Feels Safe at Home: Declines to Answer Assistive Devices: Cane and Walker Review of Systems Review of Systems: At least ten systems reviewed and negative except as noted in the HPI. Physical Exam Physical Exam: General Appearance: WD/WN, vitals as above, NAD, sitting up in bed, pleasant, conversing easily, intermittently confused Head: normocephalic, atraumatic Eyes: normal inspection, PERRL, conjunctivae normal, anicteric sclerae ENT: external ear and nose normal, oropharynx normal Neck: normal visual inspection, trachea midline, no thyromegaly Respiratory: normal respiratory effort, lungs clear to auscultation, no wheeze, rales, rhonchi. No accessory muscle use Cardiovascular: regular rate, rhythm, +systolic murmur, normal peripheral pulses, no BLE edema. Vessels: no JVD Chest: normal inspection of chest Abdomen/GI: normal bowel sounds, soft, nontender, no hepatosplenomegaly Extremities/Musculoskeletal: no cyanosis or clubbing. Reduced strength in LE (L>R) Neurologic: PERRL, EOMI, accommodation nl, no face palsy, no dysarthria, CN's II-XI intact bilaterally and moves all extremities Psychiatric: A+Ox3, euthymic affect Skin: no rashes, normal color, warm/dry, + skin tear R anterior wolfe with dressing in place Results & Data Results & Data ([facility]) Vital Signs (Past 12 Hours) Vital Signs Temp Pulse Pulse Resp BP BP Pulse Ox 11/25/21 15:00 72 18 123/61 97 11/25/21 13:00 65 16 134/75 97 11/25/21 12:50 60 19 97 11/25/21 12:40 60 17 97 11/25/21 12:30 72 21 98 11/25/21 12:29 82 23 98 11/25/21 12:10 62 16 98 11/25/21 12:00 65 22 98 11/25/21 11:50 68 29 H 97 11/25/21 11:40 64 20 97 11/25/21 11:30 79 21 11/25/21 11:22 83 21 11/25/21 12:00 11/25/21 11:18 11/25/21 11:18 36.5 C 76 20 158/92 H 95 O2 Del Method 11/25/21 15:00 Room Air 11/25/21 13:00 Room Air 11/25/21 12:50 11/25/21 12:40 11/25/21 12:30 11/25/21 12:29 11/25/21 12:10 11/25/21 12:00 10/10/22 11:50 11/25/21 11:40 11/25/21 11:30 11/25/21 11:22 11/25/21 12:00 Room Air 11/25/21 11:18 Room Air 11/25/21 11:18 Room Air Code Status & VTE Plan VTE Prophylaxis Plan VTE Prophylaxis will be ordered: Yes Supervising Physician Co-Signing Physician Notes 89-year-old lady with significant PMH of HTN, chronic left bundle branch block, cervical carotid artery aneurysm and other comorbidities presented from facility 11/25 to our ED with complaint of altered mentation. Patient was alert and oriented x3 at bedside exam, appeared confused while taking history, reported that she fell on Thursday while trying to get up on the stairs, she felt very weak/anxious/frustrated at that time that she could not lift her leg and hence she fell forward hitting her chest and legs, denied dizziness/hitting head/loss of consciousness around the time. Likely delirium secondary to ongoing steroid use secondary to amiodarone induced thyroiditis, will try to get in touch with psychologist research assistant to see if we can taper down her steroid dose. Melatonin in the night, minimal disturbances, delirium precaution. WBC elevated likely secondary to steroid use, urine analysis negative for any infection, patient denies any pain or burning while passing urine. Procalcitonin pending. Upon examination: Patient was alert and awake, heart/lung/abdomen examination WNL, bilateral wolfe with some bruises, rest of the examination as above. I have seen and examined the patient and have discussed the case with the provider above. I agree with the assessment and plan as stated.
[2021-11-25] MEDS ORDERED: FUROSEMIDE 20 MG TAB PO PRN (19:35)
[2021-11-25] MEDS ORDERED: MAGNESIUM HYDROXIDE SUSP 30 ML UDC PO PRN (19:35)
[2021-11-25] MEDS ORDERED: cefTRIAXone SODIUM 1,000 MG in DEXTROSE 5% 50 ML IV ONE (20:00)
[2021-11-25] MEDS ORDERED: methIMAzole 5 MG TABLET PO SCH (21:00)
[2021-11-25] MEDS ORDERED: dexAMETHasone 1 MG TAB PO SCH (21:00)
[2021-11-25] MEDS ORDERED: MELATONIN 3 MG TAB PO PRN (21:34)
[2021-11-25] MEDS ORDERED: POLYETHYLENE (MIRALAX) 17 GM PACK PO PRN (21:58)
[2021-11-25] MEDS ORDERED: ONDANSETRON INJ 2 MG/ML 2 ML VIAL IV PRN (21:58)
[2021-11-25] MEDS: ACETAMINOPHEN 325 MG TAB PO PRN (23:05)
[2021-11-25] MEDS: APIXABAN 2.5 MG TAB PO SCH (23:06)
[2021-11-25] MEDS: dilTIAZem HCL 30 MG TAB PO SCH (23:07)
[2021-11-25] MEDS: DOCUSATE SODIUM 100 MG CAP PO PRN (23:07)
[2021-11-25] MEDS: dexAMETHasone 1 MG TAB PO SCH (23:08)
[2021-11-25] MEDS: methIMAzole 5 MG TABLET PO SCH (23:08)
[2021-11-26 06:20] LABS: Hematocrit (blood only) 39.5 % (34.1-44.9); Hemoglobin 13.7 g/dl (12.0-16.0); Mean Corpuscular Hgb Conc 34.7 g/dL (32.0-36.0); Mean Corpuscular Volume 80.6 fL (80.0-100.0); Mean Platelet Volume 10.3 fL (9.4-12.3); Platelet Count 170 K/uL (130-400)
[2021-11-26 06:42] LABS: BUN Creatinine Ratio 65.9 (10-20); Calcium 8.6 mg/dl (8.5-10.1); Creatinine Clr Calc Pharmacy 70.9 ml/min; Est GFR (African American) 103.7 ml/min; Est GFR (Non-African American) 89.5 ml/min; Potassium 4.2 mmol/L (3.5-5.1)
[2021-11-26] MEDS: APIXABAN 2.5 MG TAB PO SCH ×2 (08:13→21:46)
[2021-11-26] MEDS: dexAMETHasone 1 MG TAB PO SCH ×2 (08:13→21:45)
[2021-11-26] MEDS: dilTIAZem HCL 30 MG TAB PO SCH ×2 (08:13→21:46)
[2021-11-26] MEDS: ATORVASTATIN 10 MG TAB PO SCH (08:13)
[2021-11-26] MEDS: METOPROLOL SUCC 25MG EXT REL TAB PO SCH (08:14)
[2021-11-26] MEDS: ADVANCED PROBIOTIC 1250 MG CAPSULE PO SCH (08:14)
[2021-11-26] MEDS: methIMAzole 5 MG TABLET PO SCH ×2 (08:14→21:46)
[2021-11-26] MEDS: MAGNESIUM OXIDE 400 MG TAB PO SCH (08:14)
[2021-11-26] MEDS: POTASSIUM CHLORIDE 10 MEQ TABCR PO SCH (08:15)
[2021-11-26] MEDS: DOCUSATE SODIUM/SENNA 50/8.6MG TAB PO SCH (08:18)
[2021-11-26] MEDS: POLYETHYLENE (MIRALAX) 17 GM PACK PO PRN (08:31)
[2021-11-26] MEDS ORDERED: NON-FORMULARY MEDICATION (Glucos Sul 2kcl-Msm-Chond-C-Mn [Glucosamine Chondroitin] 550-30- PO SCH (09:00)
--- NOTE | 2021-11-26 16:17 | Student Report ---
[facility] Med Student Progress Note Advanced Practice Practitioner Student Attestation: Not for use in clinical care. Date of Service Date of service: November 26, 2021 Subjective Subjective: No acute events overnight. Pt working with OT this morning. She is awaiting her daughter's arrival and is anxious to formulate a plan for discharge. Pt would like to go home with home health/rehab under the care of her daughter who will be here for approximately 2 weeks. She understands that therapy services and care coordination are working with the team on a plan for discharge. Pt feels that she still feels weak in her legs and has some stress about missing her upcoming neurology appointment. Denies fever, chills, night sweats, generalized pain. Pt denies any numbness, tingling, pain in extremities. Denies CP, SOB, N/V/D. Reports decent appetite. Denies issues with urination. Would like team to contact daughter regarding post discharge options. ROS ROS: See above for pertinent positives & negatives. A total of 10 systems reviewed and were otherwise negative. Physical Exam Physical Exam: General: Pt in no acute distress. Sitting in chair working with OT. Converses easily. HEENT: Sclera white, no conreal edema, PERRLA, neck supple. Atraumatic. Cardiovascular: S1, S2 RRR 3/6 systolic murmur over apex. Pulmonary: Posterior sounds CTA bilaterally. Even chest expansion. Abdomen: Soft, nontender, nondistended, positive bowel sounds. Extremities: LUND upper > lower, no peripheral edema. Bilateral pedal pulses +1. Neurologic: A&O x4, patient conts with left drop foot. BUE +4 strength, BLE +2 strength. Skin: Warm, pink, dry, scattered ecchymosis on extremities x4. Results Results: Vital Signs 11/26/2021 07:45 Temp 36.8 C Pulse 68 Resp 18 BP 119/53 L Pulse Ox 95 Intake & Output 11/25/21 11/26/21 11/26/21 18:59 06:59 18:59 Intake Total 500 / 760 260 / 760 240 / 240 Output Total Balance 500 / 759 259 / 759 240 / 240 Weight 56.3 kg 51.8 kg Short CBC 11/26/21 Range/Units 05:48 WBC 11.40 H (4.8-10.8) K/ul Hgb 13.7 (12.0-16.0) g/dl Hct 39.5 (34.1-44.9) % Plt Count 170 (130-400) K/uL BMP 11/26/21 05:48 Sodium 139 Potassium 4.2 Chloride 107 Carbon Dioxide 26 BUN 29 H Creatinine 0.44 L Glucose 112 H Calcium 8.6 Cardiac Enzymes 11/26/21 Range/Units 07:31 Total Creatine Kinase 39 (26-192) U/L Medication List Acetaminophen (Acetaminophen 325 Mg Tab) 650 mg PO Q4H PRN Last Admin: 11/25/21 23:05 Dose: 650 mg Apixaban (Apixaban 2.5 Mg Tab) 2.5 mg PO BID [facility] Last Admin: 11/26/21 08:13 Dose: 2.5 mg Atorvastatin Calcium (Atorvastatin 10 Mg Tab) 10 mg PO DAILY [facility] Last Admin: 11/26/21 08:13 Dose: 10 mg Dexamethasone (Dexamethasone 1 Mg Tab) 1 mg PO BID [facility] Last Admin: 11/26/21 08:13 Dose: 1 mg Diltiazem HCl (Diltiazem Hcl 30 Mg Tab) 30 mg PO BID [facility] Last Admin: 11/26/21 08:13 Dose: 30 mg Docusate Sodium (Docusate Sodium 100 Mg Cap) 100 mg PO HS PRN Last Admin: 11/25/21 23:07 Dose: 100 mg Lactobacillus Acidophilus (Advanced Probiotic 1250 Mg Capsule) 2 cap PO DAILY [facility] Last Admin: 11/26/21 08:14 Dose: 2 cap Magnesium Oxide (Magnesium Oxide 400 Mg Tab) 400 mg PO QAM [facility] Last Admin: 11/26/21 08:14 Dose: 400 mg Methimazole (Methimazole 5 Mg Tablet) 10 mg PO BID [facility] Last Admin: 11/26/21 08:14 Dose: 10 mg Metoprolol Succinate (Metoprolol Succ 25mg Ext Rel Tab) 75 mg PO QAM [facility] Last Admin: 11/26/21 08:14 Dose: 75 mg Polyethylene Glycol (Polyethylene (Miralax) 17 Gm Pack) 17 gm PO DAILY PRN Last Admin: 11/26/21 08:31 Dose: 17 gm Potassium Chloride (Potassium Chloride 10 Meq Tabcr) 10 meq PO DAILY [facility] Last Admin: 11/26/21 08:15 Dose: 10 meq A&P A&P: 1. Metabolic encephalopathy: Multifactorial components including [facility] stero id use, multiple locations with admissions, recent UTI, age. Mental status improving since admission. 2. Hx of UTI: Culture from 11/16 positive for proteus. Culture this admission negative. No treatment at this time. 3. Amiodarone induced hyperthyroidism: Continue methimazole, dexamethasone at decreased doses, and potassium, recheck labs in 4 weeks per endocrine recs. 11/25 TSH 0.084 and FT4 0.88. 4. PAfib: Rate controlled with digoxin, diltiazem. Continue Eliquis. 5. Hx of TIA: Head CT 11/25 negative for acute intracranial abnormalities or calvarial fractures per radiology. On Eliquis. 6. HTN: Well controlled. 7. HLD: Continue atorvastatin. Last lipid profile 09/06, LDL 124, HDL 39. Follow up with PCP outpatient. 8. Anxiety: Continue alprazolam, hydroxyzine 9. Constipation: Continue bowel regimen. Last BM 11/25 Disposition: Floor status. Awaiting recommendations and plan for placement after discharge.
--- NOTE | 2021-11-26 16:52 | Hospitalist Progress Note ---
Date of Service November 26, 2021 Assessment & Plan (1) Fall: (2) Generalized weakness: (3) Ambulatory dysfunction: (4) Amiodarone-induced thyroiditis: (5) Paroxysmal atrial fibrillation: (6) (HFpEF) heart failure with preserved ejection fraction: (7) LBBB (left bundle branch block): Plan This is an 89-year-old female with past medical history significant for hypertension, chronic left bundle-branch block, history of cerebral carotid artery aneurysm clipping in 1988, history of atrial flutter postoperatively 1988, hyperlipidemia, history of TIA with transient aphasia in 2017, paroxysmal atrial fibrillation 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 Delirium Likely multifactorial given ongoing steroids, recent infection and elderly patient with multiple hospitalizations and recent move to personal care facility CT head without acute intracranial abnormality In setting of recent proteus UTI with completed treatment on 11/23. Repeat urine culture no growth. Received 1 dose empiric IV ceftriaxone. Leukocytosis of 16K --> 11K, steroids likely contributing Mental status improving Amiodarone-induced thyroiditis Hyperthyroidism Has been on methimazole 10mg TID, dexamethasone 2mg BID Admitting provider discussed with endocrinology --> methimazole decreased to 10 mg BID and dexamethasone 1 mg BID. Repeat labs in 4 weeks Generalize weakness Ambulatory dysfunction Ambulates with walker, has chronic LE weakness using a brace for foot drop with neuro follow up scheduled for 11/28 Fall precautions, PT/OT while admitted PT recommending SNF. Daughter traveling in from [place]. Consider home with support of daughter and home health vs SNF. Paroxysmal atrial fibrillation Continue home metoprolol, Cardizem, digoxin Continue Eliquis Tachy lizeth syndrome s/p pacer History of constipation Required manual disimpaction during previous admission so bowel regimen augmented No issues with new regimen per patient. Hx of TIA (transient ischemic attack) Continue apixaban, statin DVT Ppx: Eliquis Dispo -PT recommending SNF. Medically stable for discharge. Daughter traveling in from [place]. Consider home with support of daughter and home health vs SNF. Daughter to work with PT tomorrow to evaluate patient's level of assistance. CM following. Admission and Anticipated Discharge Date Admission Date: November 25, 2021 Supervising Physician Co-Signing Physician Notes Patient seen and examined at bedside as a follow-up of likely delirium secondary to ongoing steroid use [using for amiodarone induced thyroiditis] on the background of old age and new residence currently. Patient with multiple comorbidities. Reached out to endocrinology, plan to cut down steroid dose to half and decrease the methimazole dose. today, patient is alert and oriented x3 today, denies any new acute symptoms, denies any pain or burning while passing urine, patient would like to continue with bowel regimen to help her with bowel movement. Patient feels that she is weak and she needs help. PT/OT has been consulted. CM to assist with DC planning. Upon examination: Patient was alert and awake, heart/lung/abdomen examination WNL, bilateral wolfe with some bruises, rest of the examination as above. I have seen and examined the patient and have discussed the case with the provider above. I agree with the assessment and plan as stated. Subjective Follow-up for AMS, fall. Patient seen and examined. Offers no complaints, mental status seems to be returning to baseline. Chronic L LE and left foot weakness continues. Denies chest pain and shortness of breath. No abdominal pain or nausea. Review of Systems Review of Systems: ROS per HPI, all other systems reviewed and negative Physical Exam Constitutional: WD/WN, vitals as above Respiratory: normal respiratory effort, lungs clear to auscultation Cardiovascular: Rate/Rhythm: regular rate and regular rhythm Heart Sounds: + murmur (Grade 3/6, systolic) Vessels: normal peripheral pulses Extremities: no edema Gastrointestinal (Abdomen): Percussion/Palpation: abdomen soft; abdomen nontender Musculoskeletal: Minimal strength noted left foot Skin: no rashes, warm and dry Neurologic: no focal motor deficits Psychiatric: Orientation: alert and oriented x 3 Insight: + limited insight Results & Data Results & Data ([place]) Vital Signs (Past 12 Hours) Vital Signs Temp Pulse Resp BP Pulse Ox O2 Del Method 11/26/21 16:09 36.8 C 83 18 115/71 97 Room Air 11/26/21 07:45 36.8 C 68 18 119/53 L 95 Room Air Laboratory Results Short CBC 11/26/21 Range/Units 05:48 WBC 11.40 H (4.8-10.8) K/ul Hgb 13.7 (12.0-16.0) g/dl Hct 39.5 (34.1-44.9) % Plt Count 170 (130-400) K/uL BMP 11/26/21 05:48 Sodium 139 Potassium 4.2 Chloride 107 Carbon Dioxide 26 BUN 29 H Creatinine 0.44 L Glucose 112 H Calcium 8.6 Cardiac Enzymes 11/26/21 Range/Units 07:31 Total Creatine Kinase 39 (26-192) U/L
[2021-11-26] MEDS: DIGOXIN 0.125 MG TAB PO SCH (16:58)
[2021-11-26] MEDS: DOCUSATE SODIUM 100 MG CAP PO PRN (21:45)
[2021-11-26] MEDS: MELATONIN 3 MG TAB PO SCH (21:46)
[2021-11-26] MEDS: ACETAMINOPHEN 325 MG TAB PO PRN (21:47)
[2021-11-26] MEDS: hydrOXYzine HCl 10 MG TAB PO PRN (22:19)
[2021-11-27 07:26] LABS: Hematocrit (blood only) 38.3 % (34.1-44.9); Hemoglobin 13.1 g/dl (12.0-16.0); Mean Corpuscular Hemoglobin 27.5 pg (25.0-34.0); Mean Corpuscular Hgb Conc 34.2 g/dL (32.0-36.0); Mean Corpuscular Volume 80.5 fL (80.0-100.0); Mean Platelet Volume 9.4 fL (9.4-12.3); Platelet Count 164 K/uL (130-400); RDW Standard Deviation 40.8 fL (36.4-46.3); Red Blood Count 4.76 M/uL (3.93-5.22); White Blood Count 8.88 K/ul (4.8-10.8)
[2021-11-27 07:47] LABS: BUN Creatinine Ratio 54.3 (10-20); Calcium 8.6 mg/dl (8.5-10.1); Creatinine Clr Calc Pharmacy 67.8 ml/min; Est GFR (African American) 102.2 ml/min; Est GFR (Non-African American) 88.2 ml/min; Potassium 4.4 mmol/L (3.5-5.1)
[2021-11-27] MEDS: POTASSIUM CHLORIDE 10 MEQ TABCR PO SCH (09:27)
[2021-11-27] MEDS: MAGNESIUM OXIDE 400 MG TAB PO SCH (09:27)
[2021-11-27] MEDS: methIMAzole 5 MG TABLET PO SCH ×2 (09:27→20:23)
[2021-11-27] MEDS: ADVANCED PROBIOTIC 1250 MG CAPSULE PO SCH (09:27)
[2021-11-27] MEDS: METOPROLOL SUCC 25MG EXT REL TAB PO SCH (09:27)
[2021-11-27] MEDS: OMEGA-3 (PURIFIED FISH OIL) 1 GM CAP PO SCH (09:27)
[2021-11-27] MEDS: DOCUSATE SODIUM/SENNA 50/8.6MG TAB PO SCH (09:28)
[2021-11-27] MEDS: ATORVASTATIN 10 MG TAB PO SCH (09:28)
[2021-11-27] MEDS: APIXABAN 2.5 MG TAB PO SCH ×2 (09:28→20:24)
[2021-11-27] MEDS: dilTIAZem HCL 30 MG TAB PO SCH ×2 (09:28→20:23)
[2021-11-27] MEDS: dexAMETHasone 1 MG TAB PO SCH ×2 (09:28→20:24)
--- NOTE | 2021-11-27 16:14 | Hospitalist Progress Note ---
Date of Service November 27, 2021 Assessment & Plan (1) Fall: (2) Generalized weakness: (3) Ambulatory dysfunction: (4) Amiodarone-induced thyroiditis: (5) Paroxysmal atrial fibrillation: (6) (HFpEF) heart failure with preserved ejection fraction: (7) LBBB (left bundle branch block): Plan This is an 89-year-old female with past medical history significant for hypertension, chronic left bundle-branch block, history of cerebral carotid artery aneurysm clipping in 1988, history of atrial flutter postoperatively 1988, hyperlipidemia, history of TIA with transient aphasia in 2017, paroxysmal atrial fibrillation approaching 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 Delirium Likely multifactorial given ongoing steroids, recent infection and elderly patient with multiple hospitalizations and recent move to personal care facility CT head without acute intracranial abnormality In setting of recent proteus UTI with completed treatment on 11/23. Repeat urine culture no growth. Received 1 dose empiric IV ceftriaxone. Leukocytosis of 16K --> 11K, steroids likely contributing Urine and blood cultures are negative Antibiotic was stopped Mentally she is back to her baseline Generalize weakness Ambulatory dysfunction Fall secondary to sudden possible loss of consciousness/blackout Ambulates with walker, has chronic LE weakness using a brace for foot drop with neuro follow up scheduled for 11/28 Fall precautions, PT/OT while admitted PT recommending SNF. Daughter traveling in from [place]. Consider home with support of daughter and home health vs SNF. The patient wants to go to [facility]-referral is made and awaiting approval Amiodarone-induced thyroiditis Hyperthyroidism Has been on methimazole 10mg TID, dexamethasone 2mg BID Admitting provider discussed with endocrinology --> methimazole decreased to 10 mg BID and dexamethasone 1 mg BID. Repeat labs in 4 weeks Paroxysmal atrial fibrillation Continue home metoprolol, Cardizem, digoxin Continue Eliquis Tachy lizeth syndrome s/p pacer Heart rate is controlled now History of constipation Required manual disimpaction during previous admission so bowel regimen augmented No issues with new regimen per patient. Will need to take the laxatives regularly Hx of TIA (transient ischemic attack) Continue apixaban, statin DVT Ppx: Eliquis Dispo -PT recommending SNF. Medically stable for discharge. Daughter traveling in from [place]. Consider home with support of daughter and home health vs SNF. Daughter to work with PT tomorrow to evaluate patient's level of assistance. CM following. Admission and Anticipated Discharge Date Admission Date: November 25, 2021 Supervising Physician Co-Signing Physician Notes Attending addendum: The patient was seen and examined in front of the daughter. The changes in assessment and plan were made accordingly. Agree with the assessment and plan as outlined above by Raya Balderas Subjective Follow-up for AMS, fall. Patient seen and examined. Sitting up in the chair. Offers no complaints. Eager to be discharged. No chest pain or shortness of breath. Denies abdominal pain or nausea. Review of Systems Review of Systems: ROS per HPI, all other systems reviewed and negative Physical Exam Constitutional: WD/WN, vitals as above Respiratory: normal respiratory effort, lungs clear to auscultation Cardiovascular: Rate/Rhythm: regular rate and regular rhythm Heart Sounds: + murmur (Systolic, grade 3/6) Vessels: normal peripheral pulses Extremities: no edema Gastrointestinal (Abdomen): Percussion/Palpation: abdomen soft; abdomen nontender Musculoskeletal: Chronic LLE weakness/left foot drop Skin: no rashes, warm and dry Neurologic: no focal motor deficits Psychiatric: A+Ox3, euthymic affect Results & Data Results & Data ([facility]) Vital Signs (Past 12 Hours) Vital Signs Temp Pulse Resp BP Pulse Ox O2 Del Method 11/27/21 09:45 Room Air 11/27/21 07:30 36.5 C 78 18 153/81 H 98 Room Air Laboratory Results Short CBC 11/27/21 Range/Units 07:15 WBC 8.88 (4.8-10.8) K/ul Hgb 13.1 (12.0-16.0) g/dl Hct 38.3 (34.1-44.9) % Plt Count 164 (130-400) K/uL BMP 11/27/21 07:15 Sodium 137 Potassium 4.4 Chloride 105 Carbon Dioxide 30 BUN 25 H Creatinine 0.46 L Glucose 122 H Calcium 8.6 Medications Administered Current Inpatient Medications Acetaminophen (Acetaminophen 325 Mg Tab) 650 mg PO Q4H PRN PRN Reason: pain/fever Stop: 12/25/21 21:57 Last Admin: 11/26/21 21:47 Dose: 650 mg Apixaban (Apixaban 2.5 Mg Tab) 2.5 mg PO BID [facility] Stop: 12/25/21 20:59 Last Admin: 11/27/21 09:28 Dose: 2.5 mg Atorvastatin Calcium (Atorvastatin 10 Mg Tab) 10 mg PO DAILY [facility] Stop: 12/26/21 08:59 Last Admin: 11/27/21 09:28 Dose: 10 mg Dexamethasone (Dexamethasone 1 Mg Tab) 1 mg PO BID [facility] Stop: 12/25/21 20:59 Last Admin: 11/27/21 09:28 Dose: 1 mg Digoxin (Digoxin 0.125 Mg Tab) 0.125 mg PO DAILY@1600 [facility] Stop: 12/26/21 15:59 Last Admin: 11/26/21 16:58 Dose: 0.125 mg Diltiazem HCl (Diltiazem Hcl 30 Mg Tab) 30 mg PO BID [facility] Stop: 12/25/21 20:59 Last Admin: 11/27/21 09:28 Dose: 30 mg Docusate Sodium (Docusate Sodium 100 Mg Cap) 100 mg PO HS PRN PRN Reason: Constipation Stop: 12/25/21 19:34 Last Admin: 11/26/21 21:45 Dose: 100 mg Fish Oil ([place]-3 (Purified Fish Oil) 1 Gm Cap) 2 gm PO SuWeFr@0900 [facility] Stop: 12/27/21 08:59 Last Admin: 11/27/21 09:27 Dose: 2 gm Furosemide (Furosemide 20 Mg Tab) 20 mg PO 2XWK PRN PRN Reason: sweling and weight gain Stop: 12/25/21 19:34 Hydroxyzine HCl (Hydroxyzine Hcl 10 Mg Tab) 10 mg PO Q6 PRN PRN Reason: anxiety Stop: 12/25/21 19:34 Last Admin: 11/26/21 22:19 Dose: 10 mg Lactobacillus Acidophilus (Advanced Probiotic 1250 Mg Capsule) 2 cap PO DAILY [facility] Stop: 12/26/21 08:59 Last Admin: 11/27/21 09:27 Dose: 2 cap Magnesium Hydroxide (Magnesium Hydroxide Susp 30 Ml Udc) 15 ml PO DAILY PRN PRN Reason: Constipation Stop: 12/25/21 19:34 Magnesium Oxide (Magnesium Oxide 400 Mg Tab) 400 mg PO QAM [facility] Stop: 12/26/21 08:59 Last Admin: 11/27/21 09:27 Dose: 400 mg Melatonin (Melatonin 3 Mg Tab) 6 mg PO HS [facility] Stop: 12/26/21 20:59 Last Admin: 11/26/21 21:46 Dose: 6 mg Methimazole (Methimazole 5 Mg Tablet) 10 mg PO BID [facility] Stop: 12/25/21 20:59 Last Admin: 11/27/21 09:27 Dose: 10 mg Metoprolol Succinate (Metoprolol Succ 25mg Ext Rel Tab) 75 mg PO QAM [facility] Stop: 12/26/21 08:59 Last Admin: 11/27/21 09:27 Dose: 75 mg Ondansetron HCl (Ondansetron Inj 2 Mg/Ml 2 Ml Vial) 4 mg IV Q6H PRN PRN Reason: Nausea Stop: 12/25/21 21:57 Polyethylene Glycol (Polyethylene (Miralax) 17 Gm Pack) 17 gm PO DAILY PRN PRN Reason: constipation Stop: 12/25/21 19:34 Last Admin: 11/26/21 08:31 Dose: 17 gm Polyethylene Glycol (Polyethylene (Miralax) 17 Gm Pack) 17 gm PO DAILY PRN PRN Reason: Constipation Stop: 12/25/21 21:57 Potassium Chloride (Potassium Chloride 10 Meq Tabcr) 10 meq PO DAILY [facility] Stop: 12/26/21 08:59 Last Admin: 11/27/21 09:27 Dose: 10 meq Senna/Docusate Sodium (Docusate Sodium/Senna 50/8.6mg Tab) 1 tab PO QAM [facility] Stop: 12/26/21 08:59 Last Admin: 11/27/21 09:28 Dose: 1 tab
[2021-11-27] MEDS: DIGOXIN 0.125 MG TAB PO SCH (17:17)
[2021-11-27] MEDS: MELATONIN 3 MG TAB PO SCH (20:27)
[2021-11-27] MEDS: hydrOXYzine HCl 10 MG TAB PO PRN (21:43)
[2021-11-28] MEDS: APIXABAN 2.5 MG TAB PO SCH ×2 (08:03→20:25)
[2021-11-28] MEDS: dilTIAZem HCL 30 MG TAB PO SCH ×2 (08:04→20:24)
[2021-11-28] MEDS: ATORVASTATIN 10 MG TAB PO SCH (08:04)
[2021-11-28] MEDS: dexAMETHasone 1 MG TAB PO SCH ×2 (08:04→20:25)
[2021-11-28] MEDS: ADVANCED PROBIOTIC 1250 MG CAPSULE PO SCH (08:05)
[2021-11-28] MEDS: DOCUSATE SODIUM/SENNA 50/8.6MG TAB PO SCH (08:05)
[2021-11-28] MEDS: METOPROLOL SUCC 25MG EXT REL TAB PO SCH (08:06)
[2021-11-28] MEDS: MAGNESIUM OXIDE 400 MG TAB PO SCH (08:06)
[2021-11-28] MEDS: methIMAzole 5 MG TABLET PO SCH ×2 (08:06→20:24)
[2021-11-28] MEDS: POTASSIUM CHLORIDE 10 MEQ TABCR PO SCH (08:07)
--- NOTE | 2021-11-28 08:21 | Hospitalist Progress Note ---
Date of Service November 28, 2021 Assessment & Plan (1) Fall: (2) Generalized weakness: (3) Ambulatory dysfunction: (4) Amiodarone-induced thyroiditis: (5) Paroxysmal atrial fibrillation: (6) (HFpEF) heart failure with preserved ejection fraction: (7) LBBB (left bundle branch block): Plan This is an 89-year-old female with past medical history significant for hypertension, chronic left bundle-branch block, history of cerebral carotid artery aneurysm clipping in 1988, history of atrial flutter postoperatively 1988, hyperlipidemia, history of TIA with transient aphasia in 2017, paroxysmal atrial fibrillation 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 Delirium Possible Encephalopathy due to medication (steroids) Likely multifactorial given ongoing steroids, recent infection and elderly patient with multiple hospitalizations and recent move to personal care facility CT head without acute intracranial abnormality In setting of recent proteus UTI with completed treatment on 11/23. Repeat urine culture no growth. Received 1 dose empiric IV ceftriaxone. Leukocytosis of 16K --> 11K, steroids likely contributing Urine and blood cultures are negative Antibiotic was stopped Mentally she is back to her baseline No more confusion Generalize weakness Ambulatory dysfunction Fall secondary to sudden possible loss of consciousness/blackout Ambulates with walker, has chronic LE weakness using a brace for foot drop with neuro follow up scheduled for 11/28 Fall precautions, PT/OT while admitted PT recommending SNF. Daughter traveling in from [place]. Consider home with support of daughter and home health vs SNF. The patient wants to go to [facility]-referral is made and awaiting approval Awaiting PT evaluation for possible placement Amiodarone-induced thyroiditis Hyperthyroidism Has been on methimazole 10mg TID, dexamethasone 2mg BID Admitting provider discussed with endocrinology --> methimazole decreased to 10 mg BID and dexamethasone 1 mg BID. Repeat labs in 4 weeks Paroxysmal atrial fibrillation Continue home metoprolol, Cardizem, digoxin Continue Eliquis Tachy lizeth syndrome s/p pacer Heart rate is controlled now Occasional palpitation without any chest pain and/or shortness of breath History of constipation Required manual disimpaction during previous admission so bowel regimen augmented No issues with new regimen per patient. Will need to take the laxatives regularly Hx of TIA (transient ischemic attack) Continue apixaban, statin DVT Ppx: [facility] Dispo -PT recommending SNF. Medically stable for discharge. Daughter traveling in from [place]. Consider home with support of daughter and home health vs SNF. Daughter to work with PT tomorrow to evaluate patient's level of assistance. CM following. Admission and Anticipated Discharge Date Admission Date: November 25, 2021 Subjective 11/28/2021 The patient was seen and examined in medical floor She has been feeling much better and denies any significant pain and/or distress Waiting to have physical therapy Review of Systems Review of Systems: All systems reviewed and are unremarkable except as noted below Physical Exam Physical Exam: Sitting on a chair without any acute distress Constitutional: + ill appearing and average body habitus Eyes: PERRL, conjunctivae normal, anicteric sclerae ENMT: external ear and nose normal, oropharynx normal Neck: trachea midline, no thyromegaly Respiratory: no respiratory distress Auscultation: + diminished lung sounds and + crackles (Minimal crackles at the bases) Gastrointestinal (Abdomen): Inspection/Auscultation: normal bowel sounds; abdomen not distended Percussion/Palpation: abdomen soft; abdomen nontender Musculoskeletal: No acute arthritis in any joint. Numbness involving the left lower extremity Neurologic: .Alert, awake and oriented x3. Generally weak and lethargic Results & Data Results & Data ([facility]) Vital Signs (Past 12 Hours) Vital Signs Temp Pulse Resp BP Pulse Ox O2 Del Method 11/28/21 07:46 Room Air 11/27/21 23:16 36.4 C L 63 18 110/60 97 Room Air 11/27/21 20:25 80 107/64 Medications Administered Current Inpatient Medications Acetaminophen (Acetaminophen 325 Mg Tab) 650 mg PO Q4H PRN PRN Reason: pain/fever Stop: 12/25/21 21:57 Last Admin: 11/26/21 21:47 Dose: 650 mg Apixaban (Apixaban 2.5 Mg Tab) 2.5 mg PO BID [facility] Stop: 12/25/21 20:59 Last Admin: 11/28/21 08:03 Dose: 2.5 mg Atorvastatin Calcium (Atorvastatin 10 Mg Tab) 10 mg PO DAILY [facility] Stop: 12/26/21 08:59 Last Admin: 11/28/21 08:04 Dose: 10 mg Dexamethasone (Dexamethasone 1 Mg Tab) 1 mg PO BID [facility] Stop: 12/25/21 20:59 Last Admin: 11/28/21 08:04 Dose: 1 mg Digoxin (Digoxin 0.125 Mg Tab) 0.125 mg PO DAILY@1600 [facility] Stop: 12/26/21 15:59 Last Admin: 11/27/21 17:17 Dose: 0.125 mg Diltiazem HCl (Diltiazem Hcl 30 Mg Tab) 30 mg PO BID [facility] Stop: 12/25/21 20:59 Last Admin: 11/28/21 08:04 Dose: 30 mg Docusate Sodium (Docusate Sodium 100 Mg Cap) 100 mg PO HS PRN PRN Reason: Constipation Stop: 12/25/21 19:34 Last Admin: 11/26/21 21:45 Dose: 100 mg Fish Oil ([place]-3 (Purified Fish Oil) 1 Gm Cap) 2 gm PO SuWeFr@0900 [facility] Stop: 12/27/21 08:59 Last Admin: 11/27/21 09:27 Dose: 2 gm Furosemide (Furosemide 20 Mg Tab) 20 mg PO 2XWK PRN PRN Reason: sweling and weight gain Stop: 12/25/21 19:34 Hydroxyzine HCl (Hydroxyzine Hcl 10 Mg Tab) 10 mg PO Q6 PRN PRN Reason: anxiety Stop: 12/25/21 19:34 Last Admin: 11/27/21 21:43 Dose: 10 mg Lactobacillus Acidophilus (Advanced Probiotic 1250 Mg Capsule) 2 cap PO DAILY [facility] Stop: 12/26/21 08:59 Last Admin: 11/28/21 08:05 Dose: 2 cap Magnesium Hydroxide (Magnesium Hydroxide Susp 30 Ml Udc) 15 ml PO DAILY PRN PRN Reason: Constipation Stop: 12/25/21 19:34 Magnesium Oxide (Magnesium Oxide 400 Mg Tab) 400 mg PO QAM [facility] Stop: 12/26/21 08:59 Last Admin: 11/28/21 08:06 Dose: 400 mg Melatonin (Melatonin 3 Mg Tab) 6 mg PO HS [facility] Stop: 12/26/21 20:59 Last Admin: 11/27/21 20:27 Dose: 6 mg Methimazole (Methimazole 5 Mg Tablet) 10 mg PO BID [facility] Stop: 12/25/21 20:59 Last Admin: 11/28/21 08:06 Dose: 10 mg Metoprolol Succinate (Metoprolol Succ 25mg Ext Rel Tab) 75 mg PO QAM [facility] Stop: 12/26/21 08:59 Last Admin: 11/28/21 08:06 Dose: 75 mg Ondansetron HCl (Ondansetron Inj 2 Mg/Ml 2 Ml Vial) 4 mg IV Q6H PRN PRN Reason: Nausea Stop: 12/25/21 21:57 Polyethylene Glycol (Polyethylene (Miralax) 17 Gm Pack) 17 gm PO DAILY PRN PRN Reason: constipation Stop: 12/25/21 19:34 Last Admin: 11/26/21 08:31 Dose: 17 gm Polyethylene Glycol (Polyethylene (Miralax) 17 Gm Pack) 17 gm PO DAILY PRN PRN Reason: Constipation Stop: 12/25/21 21:57 Last Admin: 11/27/21 20:19 Dose: 17 gm Potassium Chloride (Potassium Chloride 10 Meq Tabcr) 10 meq PO DAILY [facility] Stop: 12/26/21 08:59 Last Admin: 11/28/21 08:07 Dose: 10 meq Senna/Docusate Sodium (Docusate Sodium/Senna 50/8.6mg Tab) 1 tab PO QAM [facility] Stop: 12/26/21 08:59 Last Admin: 11/28/21 08:05 Dose: 1 tab
[2021-11-28] MEDS: DIGOXIN 0.125 MG TAB PO SCH (16:17)
[2021-11-28] MEDS: MELATONIN 3 MG TAB PO SCH (20:27)
[2021-11-28] MEDS: hydrOXYzine HCl 10 MG TAB PO PRN (21:02)
[2021-11-29 06:41] LABS: Basophils # (auto) 0.03 K/uL (0-0.2); Basophils % (auto) 0.3 %; Eosinophils # (auto) 0.01 K/uL (0-0.50); Eosinophils % (auto) 0.1 %; Hematocrit (blood only) 38.4 % (34.1-44.9); Immature Granulocytes # (auto) 0.31 K/uL (0.00-0.02); Immature Granulocytes % (auto) 3.1 %; Lymphocytes # (auto) 0.93 K/uL (1.2-3.4); Lymphocytes % (auto) 9.4 %; Mean Corpuscular Hemoglobin 27.5 pg (25.0-34.0); Mean Corpuscular Hgb Conc 33.9 g/dL (32.0-36.0); Mean Corpuscular Volume 81.2 fL (80.0-100.0); Mean Platelet Volume 9.4 fL (9.4-12.3); Monocytes # (auto) 0.47 K/uL (0.24-0.82); Monocytes % (auto) 4.7 %; Neutrophils # (auto) 8.15 K/uL (1.4-6.5); Neutrophils % (auto) 82.4 %; Platelet Count 167 K/uL (130-400); RDW Coefficient of Variation 14.2 % (11.5-14.5); RDW Standard Deviation 41.5 fL (36.4-46.3); Red Blood Count 4.73 M/uL (3.93-5.22)
[2021-11-29 07:10] LABS: Calcium 8.7 mg/dl (8.5-10.1); Est GFR (African American) 98.2 ml/min; Est GFR (Non-African American) 84.7 ml/min; Magnesium 2.2 mg/dl (1.7-2.4); Potassium 4.7 mmol/L (3.5-5.1)
[2021-11-29] MEDS: APIXABAN 2.5 MG TAB PO SCH ×2 (08:48→21:01)
[2021-11-29] MEDS: ATORVASTATIN 10 MG TAB PO SCH (08:48)
[2021-11-29] MEDS: dexAMETHasone 1 MG TAB PO SCH ×2 (08:49→21:01)
[2021-11-29] MEDS: dilTIAZem HCL 30 MG TAB PO SCH ×2 (08:49→21:01)
[2021-11-29] MEDS: OMEGA-3 (PURIFIED FISH OIL) 1 GM CAP PO SCH (08:50)
[2021-11-29] MEDS: DOCUSATE SODIUM/SENNA 50/8.6MG TAB PO SCH (08:50)
[2021-11-29] MEDS: methIMAzole 5 MG TABLET PO SCH ×2 (08:51→21:01)
[2021-11-29] MEDS: ADVANCED PROBIOTIC 1250 MG CAPSULE PO SCH (08:51)
[2021-11-29] MEDS: MAGNESIUM OXIDE 400 MG TAB PO SCH (08:51)
[2021-11-29] MEDS: METOPROLOL SUCC 25MG EXT REL TAB PO SCH (08:52)
[2021-11-29] MEDS: POTASSIUM CHLORIDE 10 MEQ TABCR PO SCH (08:52)
--- NOTE | 2021-11-29 13:24 | Hospitalist Progress Note ---
Date of Service November 29, 2021 Assessment & Plan (1) Fall: (2) Generalized weakness: (3) Ambulatory dysfunction: (4) Amiodarone-induced thyroiditis: (5) Paroxysmal atrial fibrillation: (6) (HFpEF) heart failure with preserved ejection fraction: (7) LBBB (left bundle branch block): Plan This is an 89-year-old female with past medical history significant for hypertension, chronic left bundle-branch block, history of cerebral carotid artery aneurysm clipping in 1988, history of atrial flutter postoperatively 1988, hyperlipidemia, history of TIA with transient aphasia in 2017, paroxysmal atrial fibrillation 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 Delirium Possible Encephalopathy due to medication (steroids) Likely multifactorial given ongoing steroids, recent infection and elderly patient with multiple hospitalizations and recent move to personal care facility CT head without acute intracranial abnormality In setting of recent proteus UTI with completed treatment on 11/23. Repeat urine culture no growth. Received 1 dose empiric IV ceftriaxone. Leukocytosis of 16K --> 11K, steroids likely contributing Urine and blood cultures are negative Antibiotic was stopped Mentally she is back to her baseline No more confusion Generalize weakness Ambulatory dysfunction Fall secondary to sudden possible loss of consciousness/blackout Ambulates with walker, has chronic LE weakness using a brace for foot drop with neuro follow up scheduled for 11/28 Fall precautions, PT/OT while admitted PT recommending SNF. Daughter traveling in from [place]. Consider home with support of daughter and home health vs SNF. The patient wants to go to [facility]-referral is made and awaiting approval We will continue PT and OT evaluation Awaiting placement-prefers to go to [facility] Amiodarone-induced thyroiditis Hyperthyroidism Has been on methimazole 10mg TID, dexamethasone 2mg BID Admitting provider discussed with endocrinology --> methimazole decreased to 10 mg BID and dexamethasone 1 mg BID. Repeat labs in 4 weeks Paroxysmal atrial fibrillation Continue home metoprolol, Cardizem, digoxin Continue Eliquis Tachy lizeth syndrome s/p pacer Heart rate is controlled now Occasional palpitation without any chest pain and/or shortness of breath Denies any cardiac symptoms History of constipation Required manual disimpaction during previous admission so bowel regimen augmented No issues with new regimen per patient. Will need to take the laxatives regularly Hx of TIA (transient ischemic attack) Continue apixaban, statin DVT Ppx: [facility] Dispo -PT recommending SNF. Medically stable for discharge. Daughter traveling in from [place]. Consider home with support of daughter and home health vs SNF. Daughter to work with PT tomorrow to evaluate patient's level of assistance. CM following. Admission and Anticipated Discharge Date Admission Date: November 25, 2021 Subjective 11/28/2021 The patient was seen and examined in medical floor She has been feeling much better and denies any significant pain and/or distress Waiting to have physical therapy 11/29/2021 The patient was seen and examined in medical floor She has been feeling much better and awaiting for physical therapy today Denies any symptoms except ongoing weakness She wants to go to [facility] for continued rehab Review of Systems Review of Systems: All systems reviewed and are unremarkable except as noted below Physical Exam Physical Exam: Sitting on a chair without any acute distress Constitutional: + ill appearing and average body habitus Eyes: PERRL, conjunctivae normal, anicteric sclerae ENMT: external ear and nose normal, oropharynx normal Neck: trachea midline, no thyromegaly Respiratory: no respiratory distress Auscultation: + diminished lung sounds and + crackles (Minimal crackles at the bases) Cardiovascular: Rate/Rhythm: regular rate and regular rhythm; not tachycardic Heart Sounds: normal S1, normal S2 and + murmur Extremities: + edema (1+ edema confined to the ankles) Has associated brace on left lower leg Gastrointestinal (Abdomen): Inspection/Auscultation: normal bowel sounds; abdomen not distended Percussion/Palpation: abdomen soft; abdomen nontender Musculoskeletal: No acute arthritis in any joint Neurologic: Alert, awake and oriented x3. Generally weak but no focal neurodeficit Lymphatic: no cervical or axillary lymphadenopathy Results & Data Results & Data ([facility]) Vital Signs (Past 12 Hours) Vital Signs Temp Pulse Resp BP Pulse Ox O2 Del Method 11/29/21 08:56 Room Air 11/29/21 07:15 36.4 C L 65 16 125/69 97 Room Air Diagnostic Findings Short CBC 11/29/21 Range/Units 06:05 WBC 9.90 (4.8-10.8) K/ul Hgb 13.0 (12.0-16.0) g/dl Hct 38.4 (34.1-44.9) % Plt Count 167 (130-400) K/uL BMP 11/29/21 06:05 Sodium 136 Potassium 4.7 Chloride 104 Carbon Dioxide 30 BUN 26 H Creatinine 0.52 L Glucose 112 H Calcium 8.7 Medications Administered Current Inpatient Medications Acetaminophen (Acetaminophen 325 Mg Tab) 650 mg PO Q4H PRN PRN Reason: pain/fever Stop: 12/25/21 21:57 Last Admin: 11/26/21 21:47 Dose: 650 mg Apixaban (Apixaban 2.5 Mg Tab) 2.5 mg PO BID [facility] Stop: 12/25/21 20:59 Last Admin: 11/29/21 08:48 Dose: 2.5 mg Atorvastatin Calcium (Atorvastatin 10 Mg Tab) 10 mg PO DAILY [facility] Stop: 12/26/21 08:59 Last Admin: 11/29/21 08:48 Dose: 10 mg Dexamethasone (Dexamethasone 1 Mg Tab) 1 mg PO BID [facility] Stop: 12/25/21 20:59 Last Admin: 11/29/21 08:49 Dose: 1 mg Digoxin (Digoxin 0.125 Mg Tab) 0.125 mg PO DAILY@1600 [facility] Stop: 12/26/21 15:59 Last Admin: 11/28/21 16:17 Dose: 0.125 mg Diltiazem HCl (Diltiazem Hcl 30 Mg Tab) 30 mg PO BID [facility] Stop: 12/25/21 20:59 Last Admin: 11/29/21 08:49 Dose: 30 mg Docusate Sodium (Docusate Sodium 100 Mg Cap) 100 mg PO HS PRN PRN Reason: Constipation Stop: 12/25/21 19:34 Last Admin: 11/26/21 21:45 Dose: 100 mg Fish Oil ([place]-3 (Purified Fish Oil) 1 Gm Cap) 2 gm PO SuWeFr@0900 [facility] Stop: 12/27/21 08:59 Last Admin: 11/29/21 08:50 Dose: 2 gm Furosemide (Furosemide 20 Mg Tab) 20 mg PO 2XWK PRN PRN Reason: sweling and weight gain Stop: 12/25/21 19:34 Hydroxyzine HCl (Hydroxyzine Hcl 10 Mg Tab) 10 mg PO Q6 PRN PRN Reason: anxiety Stop: 12/25/21 19:34 Last Admin: 11/28/21 21:02 Dose: 10 mg Lactobacillus Acidophilus (Advanced Probiotic 1250 Mg Capsule) 2 cap PO DAILY [facility] Stop: 12/26/21 08:59 Last Admin: 11/29/21 08:51 Dose: 2 cap Magnesium Hydroxide (Magnesium Hydroxide Susp 30 Ml Udc) 15 ml PO DAILY PRN PRN Reason: Constipation Stop: 12/25/21 19:34 Magnesium Oxide (Magnesium Oxide 400 Mg Tab) 400 mg PO QAM [facility] Stop: 12/26/21 08:59 Last Admin: 11/29/21 08:51 Dose: 400 mg Melatonin (Melatonin 3 Mg Tab) 6 mg PO HS [facility] Stop: 12/26/21 20:59 Last Admin: 11/28/21 20:27 Dose: 6 mg Methimazole (Methimazole 5 Mg Tablet) 10 mg PO BID [facility] Stop: 12/25/21 20:59 Last Admin: 11/29/21 08:51 Dose: 10 mg Metoprolol Succinate (Metoprolol Succ 25mg Ext Rel Tab) 75 mg PO QAM [facility] Stop: 12/26/21 08:59 Last Admin: 11/29/21 08:52 Dose: 75 mg Ondansetron HCl (Ondansetron Inj 2 Mg/Ml 2 Ml Vial) 4 mg IV Q6H PRN PRN Reason: Nausea Stop: 12/25/21 21:57 Polyethylene Glycol (Polyethylene (Miralax) 17 Gm Pack) 17 gm PO DAILY PRN PRN Reason: constipation Stop: 12/25/21 19:34 Last Admin: 11/26/21 08:31 Dose: 17 gm Polyethylene Glycol (Polyethylene (Miralax) 17 Gm Pack) 17 gm PO DAILY PRN PRN Reason: Constipation Stop: 12/25/21 21:57 Last Admin: 11/27/21 20:19 Dose: 17 gm Potassium Chloride (Potassium Chloride 10 Meq Tabcr) 10 meq PO DAILY [facility] Stop: 12/26/21 08:59 Last Admin: 11/29/21 08:52 Dose: 10 meq Senna/Docusate Sodium (Docusate Sodium/Senna 50/8.6mg Tab) 1 tab PO QAM [facility] Stop: 12/26/21 08:59 Last Admin: 11/29/21 08:50 Dose: 1 tab
[2021-11-29] MEDS: DIGOXIN 0.125 MG TAB PO SCH (15:52)
[2021-11-29] MEDS: MELATONIN 3 MG TAB PO SCH (21:05)
[2021-11-29] MEDS: POLYETHYLENE (MIRALAX) 17 GM PACK PO PRN (21:13)
[2021-11-29] MEDS: hydrOXYzine HCl 10 MG TAB PO PRN (21:20)
[2021-11-30] MEDS: dilTIAZem HCL 30 MG TAB PO SCH ×2 (08:09→20:42)
[2021-11-30] MEDS: methIMAzole 5 MG TABLET PO SCH ×2 (08:09→20:42)
[2021-11-30] MEDS: ATORVASTATIN 10 MG TAB PO SCH (08:09)
[2021-11-30] MEDS: ADVANCED PROBIOTIC 1250 MG CAPSULE PO SCH (08:09)
[2021-11-30] MEDS: APIXABAN 2.5 MG TAB PO SCH ×2 (08:09→20:42)
[2021-11-30] MEDS: POTASSIUM CHLORIDE 10 MEQ TABCR PO SCH (08:09)
[2021-11-30] MEDS: METOPROLOL SUCC 25MG EXT REL TAB PO SCH (08:09)
[2021-11-30] MEDS: DOCUSATE SODIUM/SENNA 50/8.6MG TAB PO SCH (08:09)
[2021-11-30] MEDS: MAGNESIUM OXIDE 400 MG TAB PO SCH (08:09)
[2021-11-30] MEDS: dexAMETHasone 1 MG TAB PO SCH ×2 (08:09→20:42)
--- NOTE | 2021-11-30 13:18 | Hospitalist Progress Note ---
Date of Service November 30, 2021 Assessment & Plan (1) Fall: (2) Generalized weakness: (3) Ambulatory dysfunction: (4) Amiodarone-induced thyroiditis: (5) Paroxysmal atrial fibrillation: (6) (HFpEF) heart failure with preserved ejection fraction: (7) LBBB (left bundle branch block): Plan This is an 89-year-old female with past medical history significant for hypertension, chronic left bundle-branch block, history of cerebral carotid artery aneurysm clipping in 1988, history of atrial flutter postoperatively 1988, hyperlipidemia, history of TIA with transient aphasia in 2017, paroxysmal atrial fibrillation approaching 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 Delirium Possible Encephalopathy due to medication (steroids) Likely multifactorial given ongoing steroids, recent infection and elderly patient with multiple hospitalizations and recent move to personal care facility CT head without acute intracranial abnormality In setting of recent proteus UTI with completed treatment on 11/23. Repeat urine culture no growth. Received 1 dose empiric IV ceftriaxone. Leukocytosis of 16K --> 11K, steroids likely contributing Urine and blood cultures are negative Antibiotic was stopped Mentally she is back to her baseline No more confusion Generalize weakness Ambulatory dysfunction Left foot drop Fall secondary to sudden possible loss of consciousness/blackout Ambulates with walker, has chronic LE weakness using a brace for foot drop with neuro follow up scheduled for 11/28 Fall precautions, PT/OT while admitted PT recommending SNF. Daughter traveling in from [place]. Consider home with support of daughter and home health vs SNF. The patient wants to go to [facility]-referral is made and awaiting approval We will continue PT and OT evaluation Awaiting placement-prefers to go to [facility] Amiodarone-induced thyroiditis Hyperthyroidism Has been on methimazole 10mg TID, dexamethasone 2mg BID Admitting provider discussed with endocrinology --> methimazole decreased to 10 mg BID and dexamethasone 1 mg BID. Repeat labs in 4 weeks Paroxysmal atrial fibrillation Continue home metoprolol, Cardizem, digoxin Continue Eliquis Tachy lizeth syndrome s/p pacer Heart rate is controlled now Occasional palpitation without any chest pain and/or shortness of breath Denies any cardiac symptoms History of constipation Required manual disimpaction during previous admission so bowel regimen augmented No issues with new regimen per patient. Will need to take the laxatives regularly Hx of TIA (transient ischemic attack) Continue apixaban, statin DVT Ppx: [facility] Dispo -PT recommending SNF. Medically stable for discharge. Daughter traveling in from [place]. Consider home with support of daughter and home health vs SNF. Daughter to work with PT tomorrow to evaluate patient's level of assistance. CM following. She has been denied to go to [facility] following peer to peer review She will be probably going to intermediate/home with continued physical therapy Admission and Anticipated Discharge Date Admission Date: November 25, 2021 Subjective 11/28/2021 The patient was seen and examined in medical floor She has been feeling much better and denies any significant pain and/or distress Waiting to have physical therapy 11/29/2021 The patient was seen and examined in medical floor She has been feeling much better and awaiting for physical therapy today Denies any symptoms except ongoing weakness She wants to go to [facility] for continued rehab 11/30/2021 Patient was seen and examined in medical floor She remained stable and only complains remains to be numbness involving the left leg with foot drop She has been getting physical therapy and is denied to go to [facility] She will be going to intermediate/home with continued physical therapy Review of Systems Review of Systems: All systems reviewed and are unremarkable except as noted below Physical Exam Physical Exam: Sitting on a chair without any acute distress Constitutional: + ill appearing and average body habitus Eyes: PERRL, conjunctivae normal, anicteric sclerae ENMT: external ear and nose normal, oropharynx normal Neck: trachea midline, no thyromegaly Respiratory: no respiratory distress Auscultation: + diminished lung sounds and + crackles (Minimal crackles at the bases) Cardiovascular: Rate/Rhythm: regular rate and regular rhythm; not tachycardic Heart Sounds: normal S1, normal S2 and + murmur Extremities: + edema (1+ edema confined to the ankles) Gastrointestinal (Abdomen): Inspection/Auscultation: normal bowel sounds; abdomen not distended Percussion/Palpation: abdomen soft; abdomen nontender Musculoskeletal: No acute arthritis involving any joint Neurologic: Alert, awake and oriented x3. She has foot drop on the left side. Flexion of the ankle joint is totally absent Psychiatric: A+Ox3, euthymic affect Lymphatic: no cervical or axillary lymphadenopathy Results & Data Results & Data ([facility]) Vital Signs (Past 12 Hours) Vital Signs Temp Pulse Resp BP Pulse Ox O2 Del Method 11/30/21 07:48 36.4 C L 62 16 131/67 94 Room Air Medications Administered Current Inpatient Medications Acetaminophen (Acetaminophen 325 Mg Tab) 650 mg PO Q4H PRN PRN Reason: pain/fever Stop: 12/25/21 21:57 Last Admin: 11/26/21 21:47 Dose: 650 mg Apixaban (Apixaban 2.5 Mg Tab) 2.5 mg PO BID [facility] Stop: 12/25/21 20:59 Last Admin: 11/30/21 08:09 Dose: 2.5 mg Atorvastatin Calcium (Atorvastatin 10 Mg Tab) 10 mg PO DAILY [facility] Stop: 12/26/21 08:59 Last Admin: 11/30/21 08:09 Dose: 10 mg Dexamethasone (Dexamethasone 1 Mg Tab) 1 mg PO BID [facility] Stop: 12/25/21 20:59 Last Admin: 11/30/21 08:09 Dose: 1 mg Digoxin (Digoxin 0.125 Mg Tab) 0.125 mg PO DAILY@1600 [facility] Stop: 12/26/21 15:59 Last Admin: 11/29/21 15:52 Dose: 0.125 mg Diltiazem HCl (Diltiazem Hcl 30 Mg Tab) 30 mg PO BID [facility] Stop: 12/25/21 20:59 Last Admin: 11/30/21 08:09 Dose: 30 mg Docusate Sodium (Docusate Sodium 100 Mg Cap) 100 mg PO HS PRN PRN Reason: Constipation Stop: 12/25/21 19:34 Last Admin: 11/26/21 21:45 Dose: 100 mg Fish Oil ([place]-3 (Purified Fish Oil) 1 Gm Cap) 2 gm PO SuWeFr@0900 [facility] Stop: 12/27/21 08:59 Last Admin: 11/29/21 08:50 Dose: 2 gm Furosemide (Furosemide 20 Mg Tab) 20 mg PO 2XWK PRN PRN Reason: sweling and weight gain Stop: 12/25/21 19:34 Hydroxyzine HCl (Hydroxyzine Hcl 10 Mg Tab) 10 mg PO Q6 PRN PRN Reason: anxiety Stop: 12/25/21 19:34 Last Admin: 11/29/21 21:20 Dose: 10 mg Lactobacillus Acidophilus (Advanced Probiotic 1250 Mg Capsule) 2 cap PO DAILY [facility] Stop: 12/26/21 08:59 Last Admin: 11/30/21 08:09 Dose: 2 cap Magnesium Hydroxide (Magnesium Hydroxide Susp 30 Ml Udc) 15 ml PO DAILY PRN PRN Reason: Constipation Stop: 12/25/21 19:34 Magnesium Oxide (Magnesium Oxide 400 Mg Tab) 400 mg PO QAM [facility] Stop: 12/26/21 08:59 Last Admin: 11/30/21 08:09 Dose: 400 mg Melatonin (Melatonin 3 Mg Tab) 6 mg PO HS [facility] Stop: 12/26/21 20:59 Last Admin: 11/29/21 21:05 Dose: 6 mg Methimazole (Methimazole 5 Mg Tablet) 10 mg PO BID [facility] Stop: 12/25/21 20:59 Last Admin: 11/30/21 08:09 Dose: 10 mg Metoprolol Succinate (Metoprolol Succ 25mg Ext Rel Tab) 75 mg PO QAM [facility] Stop: 12/26/21 08:59 Last Admin: 11/30/21 08:09 Dose: 75 mg Ondansetron HCl (Ondansetron Inj 2 Mg/Ml 2 Ml Vial) 4 mg IV Q6H PRN PRN Reason: Nausea Stop: 12/25/21 21:57 Polyethylene Glycol (Polyethylene (Miralax) 17 Gm Pack) 17 gm PO DAILY PRN PRN Reason: constipation Stop: 12/25/21 19:34 Last Admin: 11/29/21 21:13 Dose: 17 gm Polyethylene Glycol (Polyethylene (Miralax) 17 Gm Pack) 17 gm PO DAILY PRN PRN Reason: Constipation Stop: 12/25/21 21:57 Last Admin: 11/27/21 20:19 Dose: 17 gm Potassium Chloride (Potassium Chloride 10 Meq Tabcr) 10 meq PO DAILY [facility] Stop: 12/26/21 08:59 Last Admin: 11/30/21 08:09 Dose: 10 meq Senna/Docusate Sodium (Docusate Sodium/Senna 50/8.6mg Tab) 1 tab PO QAM [facility] Stop: 12/26/21 08:59 Last Admin: 11/30/21 08:09 Dose: 1 tab
[2021-11-30] MEDS: DIGOXIN 0.125 MG TAB PO SCH (17:23)
[2021-11-30] MEDS: POLYETHYLENE (MIRALAX) 17 GM PACK PO PRN (20:42)
[2021-11-30] MEDS: MELATONIN 3 MG TAB PO SCH (20:42)
[2021-11-30] MEDS: hydrOXYzine HCl 10 MG TAB PO PRN (20:43)
[2021-12-01] MEDS: METOPROLOL SUCC 25MG EXT REL TAB PO SCH (08:43)
[2021-12-01] MEDS: POTASSIUM CHLORIDE 10 MEQ TABCR PO SCH (08:43)
[2021-12-01] MEDS: MAGNESIUM OXIDE 400 MG TAB PO SCH (08:43)
[2021-12-01] MEDS: DOCUSATE SODIUM/SENNA 50/8.6MG TAB PO SCH (08:43)
[2021-12-01] MEDS: OMEGA-3 (PURIFIED FISH OIL) 1 GM CAP PO SCH (08:43)
[2021-12-01] MEDS: ATORVASTATIN 10 MG TAB PO SCH (08:43)
[2021-12-01] MEDS: ADVANCED PROBIOTIC 1250 MG CAPSULE PO SCH (08:43)
[2021-12-01] MEDS: APIXABAN 2.5 MG TAB PO SCH ×2 (08:44→19:32)
[2021-12-01] MEDS: dexAMETHasone 1 MG TAB PO SCH ×2 (08:44→19:33)
[2021-12-01] MEDS: dilTIAZem HCL 30 MG TAB PO SCH ×2 (08:44→19:32)
[2021-12-01] MEDS: methIMAzole 5 MG TABLET PO SCH ×2 (08:44→19:32)
[2021-12-01] MEDS ORDERED: SODIUM CHLORIDE 0.65% NA SOLN 45 ML (OCEAN) ONE (09:34)
--- NOTE | 2021-12-01 13:32 | Hospitalist Progress Note ---
Date of Service December 01, 2021 Assessment & Plan (1) Fall: (2) Generalized weakness: (3) Ambulatory dysfunction: (4) Amiodarone-induced thyroiditis: (5) Paroxysmal atrial fibrillation: (6) (HFpEF) heart failure with preserved ejection fraction: (7) LBBB (left bundle branch block): Plan This is an 89-year-old female with past medical history significant for hypertension, chronic left bundle-branch block, history of cerebral carotid artery aneurysm clipping in 1988, history of atrial flutter postoperatively 1988, hyperlipidemia, history of TIA with transient aphasia in 2017, paroxysmal atrial fibrillation 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 Delirium Possible Encephalopathy due to medication (steroids) Likely multifactorial given ongoing steroids, recent infection and elderly patient with multiple hospitalizations and recent move to personal care facility CT head without acute intracranial abnormality In setting of recent proteus UTI with completed treatment on 11/23. Repeat urine culture no growth. Received 1 dose empiric IV ceftriaxone. Leukocytosis of 16K --> 11K, steroids likely contributing Urine and blood cultures are negative Antibiotic was stopped Mentally she is back to her baseline No more confusion Getting very anxious to get out of the hospital Likely to be discharged home tomorrow with home PT Generalize weakness Ambulatory dysfunction Left foot drop Fall secondary to sudden possible loss of consciousness/blackout Ambulates with walker, has chronic LE weakness using a brace for foot drop with neuro follow up scheduled for 11/28 Fall precautions, PT/OT while admitted PT recommending SNF. Daughter traveling in from [place]. Consider home with support of daughter and home health vs SNF. The patient wants to go to [facility]-referral is made and awaiting approval We will continue PT and OT evaluation Awaiting placement-prefers to go to [facility] Continue PT and OT Amiodarone-induced thyroiditis Hyperthyroidism Has been on methimazole 10mg TID, dexamethasone 2mg BID Admitting provider discussed with endocrinology --> methimazole decreased to 10 mg BID and dexamethasone 1 mg BID. Repeat labs in 4 weeks Paroxysmal atrial fibrillation Continue home metoprolol, Cardizem, digoxin Continue Eliquis Tachy lizeth syndrome s/p pacer Heart rate is controlled now Occasional palpitation without any chest pain and/or shortness of breath Denies any cardiac symptoms Heart rate remains controlled History of constipation Required manual disimpaction during previous admission so bowel regimen augmented No issues with new regimen per patient. Will need to take the laxatives regularly Hx of TIA (transient ischemic attack) Continue apixaban, statin DVT Ppx: Eliquis Dispo -PT recommending SNF. Medically stable for discharge. Daughter traveling in from [place]. Consider home with support of daughter and home health vs SNF. Daughter to work with PT tomorrow to evaluate patient's level of assistance. CM following. She has been denied to go to [facility] following peer to peer review She will be probably going to assisted/home with continued physical therapy Admission and Anticipated Discharge Date Admission Date: November 25, 2021 Subjective 11/28/2021 The patient was seen and examined in medical floor She has been feeling much better and denies any significant pain and/or distress Waiting to have physical therapy 11/29/2021 The patient was seen and examined in medical floor She has been feeling much better and awaiting for physical therapy today Denies any symptoms except ongoing weakness She wants to go to [facility] for continued rehab 11/30/2021 Patient was seen and examined in medical floor She remained stable and only complains remains to be numbness involving the left leg with foot drop She has been getting physical therapy and is denied to go to [facility] She will be going to assisted/home with continued physical therapy 12/01/2021 Patient was seen and examined in medical floor She has been stable but looked a little depressed today She wants to get out of the hospital and does not want to be confined in that small room Getting very anxious Review of Systems Review of Systems: All systems reviewed and are unremarkable except as noted below Physical Exam Physical Exam: Sitting on a chair without any acute distress Constitutional: + ill appearing and average body habitus Eyes: PERRL, conjunctivae normal, anicteric sclerae ENMT: external ear and nose normal, oropharynx normal Neck: trachea midline, no thyromegaly Respiratory: no respiratory distress Auscultation: + diminished lung sounds and + crackles (Minimal crackles at the bases) Cardiovascular: Rate/Rhythm: regular rate and regular rhythm; not tachycardic Heart Sounds: normal S1, normal S2 and + murmur Extremities: + edema (1+ edema confined to the ankles) Gastrointestinal (Abdomen): Inspection/Auscultation: normal bowel sounds; abdomen not distended Percussion/Palpation: abdomen soft; abdomen nontender Neurologic: Remains very anxious today. Generally weak and lethargic. Did walk around in the hallway with the nurse Psychiatric: A+Ox3, euthymic affect Lymphatic: no cervical or axillary lymphadenopathy Results & Data Results & Data ([facility]) Vital Signs (Past 12 Hours) Vital Signs Temp Pulse Resp BP Pulse Ox O2 Del Method 12/01/21 07:41 36.5 C 64 16 143/79 H 97 Room Air Diagnostic Findings Current Inpatient Medications Acetaminophen (Acetaminophen 325 Mg Tab) 650 mg PO Q4H PRN PRN Reason: pain/fever Stop: 12/25/21 21:57 Last Admin: 11/26/21 21:47 Dose: 650 mg Apixaban (Apixaban 2.5 Mg Tab) 2.5 mg PO BID [facility] Stop: 12/25/21 20:59 Last Admin: 12/01/21 08:44 Dose: 2.5 mg Atorvastatin Calcium (Atorvastatin 10 Mg Tab) 10 mg PO DAILY [facility] Stop: 12/26/21 08:59 Last Admin: 12/01/21 08:43 Dose: 10 mg Dexamethasone (Dexamethasone 1 Mg Tab) 1 mg PO BID [facility] Stop: 12/25/21 20:59 Last Admin: 12/01/21 08:44 Dose: 1 mg Digoxin (Digoxin 0.125 Mg Tab) 0.125 mg PO DAILY@1600 [facility] Stop: 12/26/21 15:59 Last Admin: 11/30/21 17:23 Dose: 0.125 mg Diltiazem HCl (Diltiazem Hcl 30 Mg Tab) 30 mg PO BID [facility] Stop: 12/25/21 20:59 Last Admin: 12/01/21 08:44 Dose: 30 mg Docusate Sodium (Docusate Sodium 100 Mg Cap) 100 mg PO HS PRN PRN Reason: Constipation Stop: 12/25/21 19:34 Last Admin: 11/26/21 21:45 Dose: 100 mg Fish Oil ([place]-3 (Purified Fish Oil) 1 Gm Cap) 2 gm PO SuWeFr@0900 [facility] Stop: 12/27/21 08:59 Last Admin: 12/01/21 08:43 Dose: 2 gm Furosemide (Furosemide 20 Mg Tab) 20 mg PO 2XWK PRN PRN Reason: sweling and weight gain Stop: 12/25/21 19:34 Hydroxyzine HCl (Hydroxyzine Hcl 10 Mg Tab) 10 mg PO Q6 PRN PRN Reason: anxiety Stop: 12/25/21 19:34 Last Admin: 11/30/21 20:43 Dose: 10 mg Lactobacillus Acidophilus (Advanced Probiotic 1250 Mg Capsule) 2 cap PO DAILY [facility] Stop: 12/26/21 08:59 Last Admin: 12/01/21 08:43 Dose: 2 cap Magnesium Hydroxide (Magnesium Hydroxide Susp 30 Ml Udc) 15 ml PO DAILY PRN PRN Reason: Constipation Stop: 12/25/21 19:34 Magnesium Oxide (Magnesium Oxide 400 Mg Tab) 400 mg PO QAM [facility] Stop: 12/26/21 08:59 Last Admin: 12/01/21 08:43 Dose: 400 mg Melatonin (Melatonin 3 Mg Tab) 6 mg PO HS [facility] Stop: 12/26/21 20:59 Last Admin: 11/30/21 20:42 Dose: 6 mg Methimazole (Methimazole 5 Mg Tablet) 10 mg PO BID [facility] Stop: 12/25/21 20:59 Last Admin: 12/01/21 08:44 Dose: 10 mg Metoprolol Succinate (Metoprolol Succ 25mg Ext Rel Tab) 75 mg PO QAM [facility] Stop: 12/26/21 08:59 Last Admin: 12/01/21 08:43 Dose: 75 mg Ondansetron HCl (Ondansetron Inj 2 Mg/Ml 2 Ml Vial) 4 mg IV Q6H PRN PRN Reason: Nausea Stop: 12/25/21 21:57 Polyethylene Glycol (Polyethylene (Miralax) 17 Gm Pack) 17 gm PO DAILY PRN PRN Reason: constipation Stop: 12/25/21 19:34 Last Admin: 11/30/21 20:42 Dose: 17 gm Polyethylene Glycol (Polyethylene (Miralax) 17 Gm Pack) 17 gm PO DAILY PRN PRN Reason: Constipation Stop: 12/25/21 21:57 Last Admin: 11/27/21 20:19 Dose: 17 gm Potassium Chloride (Potassium Chloride 10 Meq Tabcr) 10 meq PO DAILY [facility] Stop: 12/26/21 08:59 Last Admin: 12/01/21 08:43 Dose: 10 meq Senna/Docusate Sodium (Docusate Sodium/Senna 50/8.6mg Tab) [facility] [place]: 12/26/21 08:59 Last Admin: 12/01/21 08:43 Dose: 1 tab
[2021-12-01] MEDS: DIGOXIN 0.125 MG TAB PO SCH (15:33)
[2021-12-01] MEDS: MELATONIN 3 MG TAB PO SCH (19:32)
[2021-12-01] MEDS: POLYETHYLENE (MIRALAX) 17 GM PACK PO PRN (19:33)
[2021-12-01] MEDS: hydrOXYzine HCl 10 MG TAB PO PRN (20:30)
[2021-12-02 08:01] LABS: Hemoglobin 14.1 g/dl (12.0-16.0); Mean Corpuscular Hgb Conc 34.4 g/dL (32.0-36.0); Mean Corpuscular Volume 81.5 fL (80.0-100.0); Mean Platelet Volume 9.4 fL (9.4-12.3); Platelet Count 210 K/uL (130-400); RDW Coefficient of Variation 14.6 % (11.5-14.5); RDW Standard Deviation 42.3 fL (36.4-46.3); Red Blood Count 5.03 M/uL (3.93-5.22); White Blood Count 9.66 K/ul (4.8-10.8)
[2021-12-02 08:20] LABS: BUN Creatinine Ratio 59.1 (10-20); Calcium 8.7 mg/dl (8.5-10.1); Creatinine Clr Calc Pharmacy 70.9 ml/min; Est GFR (African American) 103.7 ml/min; Est GFR (Non-African American) 89.5 ml/min; Magnesium 2.1 mg/dl (1.7-2.4); Phosphorus 3.4 mg/dl (2.5-4.9); Potassium 4.4 mmol/L (3.5-5.1)
[2021-12-02] MEDS: ADVANCED PROBIOTIC 1250 MG CAPSULE PO SCH (08:26)
[2021-12-02] MEDS: METOPROLOL SUCC 25MG EXT REL TAB PO SCH (08:27)
[2021-12-02] MEDS: MAGNESIUM OXIDE 400 MG TAB PO SCH (08:27)
[2021-12-02] MEDS: POTASSIUM CHLORIDE 10 MEQ TABCR PO SCH (08:27)
[2021-12-02] MEDS: ATORVASTATIN 10 MG TAB PO SCH (08:28)
[2021-12-02] MEDS: methIMAzole 5 MG TABLET PO SCH (08:29)
[2021-12-02] MEDS: dilTIAZem HCL 30 MG TAB PO SCH (08:29)
[2021-12-02] MEDS: APIXABAN 2.5 MG TAB PO SCH (08:29)
[2021-12-02] MEDS: dexAMETHasone 1 MG TAB PO SCH (08:29)
[2021-12-02] MEDS: DOCUSATE SODIUM/SENNA 50/8.6MG TAB PO SCH (08:30)
[2021-12-02 09:05] LABS: Basophils # (auto) 0.04 K/uL (0-0.2); Basophils % (auto) 0.4 %; Immature Granulocytes # (auto) 0.52 K/uL (0.00-0.02); Immature Granulocytes % (auto) 5.4 %; Lymphocytes % (auto) 10.4 %; Monocytes # (auto) 0.46 K/uL (0.24-0.82); Monocytes % (auto) 4.8 %; Neutrophils # (auto) 7.64 K/uL (1.4-6.5); RBC Morphology Unremarkable
--- NOTE | 2021-12-02 12:59 | Hospitalist Progress Note ---
Date of Service December 02, 2021 Assessment & Plan (1) Fall: (2) Generalized weakness: (3) Ambulatory dysfunction: (4) Amiodarone-induced thyroiditis: (5) Paroxysmal atrial fibrillation: (6) (HFpEF) heart failure with preserved ejection fraction: (7) LBBB (left bundle branch block): Plan This is an 89-year-old female with past medical history significant for hypertension, chronic left bundle-branch block, history of cerebral carotid artery aneurysm clipping in 1988, history of atrial flutter postoperatively 1988, hyperlipidemia, history of TIA with transient aphasia in 2017, paroxysmal atrial fibrillation approaching 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 Delirium Possible Encephalopathy due to medication (steroids) Likely multifactorial given ongoing steroids, recent infection and elderly patient with multiple hospitalizations and recent move to personal care facility CT head without acute intracranial abnormality In setting of recent proteus UTI with completed treatment on 11/23. Repeat urine culture no growth. Received 1 dose empiric IV ceftriaxone. Leukocytosis of 16K --> 11K, steroids likely contributing Urine and blood cultures are negative Antibiotic was stopped Mentally she is back to her baseline No more confusion Getting very anxious to get out of the hospital No more delirium and does not have any more anxiety Generalize weakness Ambulatory dysfunction Left foot drop Fall secondary to sudden possible loss of consciousness/blackout Ambulates with walker, has chronic LE weakness using a brace for foot drop with neuro follow up scheduled for 11/28 Fall precautions, PT/OT while admitted PT recommending SNF. Daughter traveling in from [place]. Consider home with support of daughter and home health vs SNF. The patient wants to go to [facility]-referral is made and awaiting approval We will continue PT and OT evaluation Awaiting placement-prefers to go to [facility] Continue PT and OT-recommended SNF She will be going to [facility] with continuation of physical therapy Amiodarone-induced thyroiditis Hyperthyroidism Has been on methimazole 10mg TID, dexamethasone 2mg BID Admitting provider discussed with endocrinology --> methimazole decreased to 10 mg BID and dexamethasone 1 mg BID. Repeat labs in 4 weeks Strongly advised to keep appointment with the exterior door installer Paroxysmal atrial fibrillation Continue home metoprolol, Cardizem, digoxin Continue Eliquis Tachy lizeth syndrome s/p pacer Heart rate is controlled now Occasional palpitation without any chest pain and/or shortness of breath Denies any cardiac symptoms Heart rate remains controlled History of constipation Required manual disimpaction during previous admission so bowel regimen augmented No issues with new regimen per patient. Will need to take the laxatives regularly Hx of TIA (transient ischemic attack) Continue apixaban, statin DVT Ppx: Eliquis Dispo -PT recommending SNF. Medically stable for discharge. Daughter traveling in from [place]. Consider home with support of daughter and home health vs SNF. Daughter to work with PT tomorrow to evaluate patient's level of assistance. CM following. She has been denied to go to [facility] following peer to peer review She will be probably going to half-way/home with continued physical therapy Discharge to [facility] this afternoon Admission and Anticipated Discharge Date Admission Date: November 25, 2021 Subjective 11/28/2021 The patient was seen and examined in medical floor She has been feeling much better and denies any significant pain and/or distress Waiting to have physical therapy 11/29/2021 The patient was seen and examined in medical floor She has been feeling much better and awaiting for physical therapy today Denies any symptoms except ongoing weakness She wants to go to [facility] for continued rehab 11/30/2021 Patient was seen and examined in medical floor She remained stable and only complains remains to be numbness involving the left leg with foot drop She has been getting physical therapy and is denied to go to [facility] She will be going to half-way/home with continued physical therapy 12/01/2021 Patient was seen and examined in medical floor She has been stable but looked a little depressed today She wants to get out of the hospital and does not want to be confined in that small room Getting very anxious 12/02/2021 The patient was seen and examined in medical floor She has been feeling much better today and feels happy that she will be discharged this afternoon Denies any significant symptoms Review of Systems Review of Systems: All systems reviewed and are unremarkable except as noted below Physical Exam Physical Exam: Sitting on a chair without any acute distress Constitutional: average body habitus; not ill appearing Eyes: PERRL, conjunctivae normal, anicteric sclerae ENMT: external ear and nose normal, oropharynx normal Neck: trachea midline, no thyromegaly Respiratory: no respiratory distress Auscultation: + diminished lung sounds and + crackles (Minimal crackles at the bases) Cardiovascular: Rate/Rhythm: regular rate and regular rhythm; not tachycardic Heart Sounds: normal S1, normal S2 and + murmur Extremities: + edema (1+ edema confined to the ankles) Gastrointestinal (Abdomen): Inspection/Auscultation: normal bowel sounds; abdomen not distended Percussion/Palpation: abdomen soft; abdomen nontender Musculoskeletal: Left foot drop but no acute arthritis in any joint Neurologic: Alert, awake and oriented x3. Except left foot drop there is no other neurodeficit Psychiatric: A+Ox3, euthymic affect Lymphatic: no cervical or axillary lymphadenopathy Results & Data Results & Data ([facility]) Vital Signs (Past 12 Hours) Vital Signs Temp Pulse Resp BP Pulse Ox O2 Del Method 12/02/21 07:20 36.4 C L 77 16 132/76 97 Room Air Laboratory Results Short CBC 12/02/21 Range/Units 07:48 WBC 9.66 (4.8-10.8) K/ul Hgb 14.1 (12.0-16.0) g/dl Hct 41.0 (34.1-44.9) % Plt Count 210 (130-400) K/uL BMP 12/02/21 07:48 Sodium 136 Potassium 4.4 Chloride 103 Carbon Dioxide 32 BUN 26 H Creatinine 0.44 L Glucose 108 H Calcium 8.7 Medications Administered Current Inpatient Medications Acetaminophen (Acetaminophen 325 Mg Tab) 650 mg PO Q4H PRN PRN Reason: pain/fever Stop: 12/25/21 21:57 Last Admin: 11/26/21 21:47 Dose: 650 mg Apixaban (Apixaban 2.5 Mg Tab) 2.5 mg PO BID [facility] Stop: 12/25/21 20:59 Last Admin: 12/02/21 08:29 Dose: 2.5 mg Atorvastatin Calcium (Atorvastatin 10 Mg Tab) 10 mg PO DAILY [facility] Stop: 12/26/21 08:59 Last Admin: 12/02/21 08:28 Dose: 10 mg Dexamethasone (Dexamethasone 1 Mg Tab) 1 mg PO BID [facility] Stop: 12/25/21 20:59 Last Admin: 12/02/21 08:29 Dose: 1 mg Digoxin (Digoxin 0.125 Mg Tab) 0.125 mg PO DAILY@1600 [facility] Stop: 12/26/21 15:59 Last Admin: 12/01/21 15:33 Dose: 0.125 mg Diltiazem HCl (Diltiazem Hcl 30 Mg Tab) 30 mg PO BID [facility] Stop: 12/25/21 20:59 Last Admin: 12/02/21 08:29 Dose: 30 mg Docusate Sodium (Docusate Sodium 100 Mg Cap) 100 mg PO HS PRN PRN Reason: Constipation Stop: 12/25/21 19:34 Last Admin: 11/26/21 21:45 Dose: 100 mg Fish Oil (Ethel-3 (Purified Fish Oil) 1 Gm Cap) 2 gm PO SuWeFr@0900 [facility] Stop: 12/27/21 08:59 Last Admin: 12/01/21 08:43 Dose: 2 gm Furosemide (Furosemide 20 Mg Tab) 20 mg PO 2XWK PRN PRN Reason: sweling and weight gain Stop: 12/25/21 19:34 Hydroxyzine HCl (Hydroxyzine Hcl 10 Mg Tab) 10 mg PO Q6 PRN PRN Reason: anxiety Stop: 12/25/21 19:34 Last Admin: 12/01/21 20:30 Dose: 10 mg Lactobacillus Acidophilus (Advanced Probiotic 1250 Mg Capsule) 2 cap PO DAILY [facility] Stop: 12/26/21 08:59 Last Admin: 12/02/21 08:26 Dose: 2 cap Magnesium Hydroxide (Magnesium Hydroxide Susp 30 Ml Udc) 15 ml PO DAILY PRN PRN Reason: Constipation Stop: 12/25/21 19:34 Magnesium Oxide (Magnesium Oxide 400 Mg Tab) 400 mg PO QAM [facility] Stop: 12/26/21 08:59 Last Admin: 12/02/21 08:27 Dose: 400 mg Melatonin (Melatonin 3 Mg Tab) 6 mg PO HS [facility] Stop: 12/26/21 20:59 Last Admin: 12/01/21 19:32 Dose: 6 mg Methimazole (Methimazole 5 Mg Tablet) 10 mg PO BID [facility] Stop: 12/25/21 20:59 Last Admin: 12/02/21 08:29 Dose: 10 mg Metoprolol Succinate (Metoprolol Succ 25mg Ext Rel Tab) 75 mg PO QAM [facility] Stop: 12/26/21 08:59 Last Admin: 12/02/21 08:27 Dose: 75 mg Ondansetron HCl (Ondansetron Inj 2 Mg/Ml 2 Ml Vial) 4 mg IV Q6H PRN PRN Reason: Nausea Stop: 12/25/21 21:57 Polyethylene Glycol (Polyethylene (Miralax) 17 Gm Pack) 17 gm PO DAILY PRN PRN Reason: constipation Stop: 12/25/21 19:34 Last Admin: 12/01/21 19:33 Dose: 17 gm Polyethylene Glycol (Polyethylene (Miralax) 17 Gm Pack) 17 gm PO DAILY PRN PRN Reason: Constipation Stop: 12/25/21 21:57 Last Admin: 11/27/21 20:19 Dose: 17 gm Potassium Chloride (Potassium Chloride 10 Meq Tabcr) 10 meq PO DAILY [facility] Stop: 12/26/21 08:59 Last Admin: 12/02/21 08:27 Dose: 10 meq Senna/Docusate Sodium (Docusate Sodium/Senna 50/8.6mg Tab) 1 tab PO QAM [facility] Stop: 12/26/21 08:59 Last Admin: 12/02/21 08:30 Dose: 1 tab
--- NOTE | 2021-12-02 18:21 | Discharge Summary ---
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 Patient was recently admitted for a fall and found to have Proteus UTI. Was discharged to personal care facility on 11/21/2021 with 2 days remaining of antibiotic. Per discussion with daughter, patient had a fall later that same evening of discharge when ambulating with walker and was evaluated in the ED with negative CT and sent back to facility. Over the course the next few days, patient became progressively confused and agitated to the point that last night she ripped up papers and spread lotion on the floor. Facility became concerned that they would not be able to provide adequate care and sent to ED for further evaluation. During interview, patient is alert and oriented to person, place and time but only intermittently oriented to situation. At some points of questioning patient thinks she was at home and at other points remembers being in personal group home. Denies any pain. Reports weakness in left lower extremity that is known and chronic. Has been on steroids for amiodarone induced thyroiditis as per endocrinology. No fever, chills, lightheadedness, chest pain, shortness of breath, nausea, vomiting, abdominal pain, dysuria diarrhea or constipation. Principal Diagnosis Delirium-improved, ambulatory dysfunction, left foot drop, generalized weakness, and urinary induced thyroiditis, paroxysmal atrial fibrillation Discharge Exam Sitting on a chair without any acute distress Constitutional average body habitus; not ill appearing Eyes PERRL, conjunctivae normal, anicteric sclerae ENMT external ear and nose normal, oropharynx normal Neck trachea midline, no thyromegaly Respiratory no respiratory distress Auscultation: + diminished lung sounds and + crackles (Minimal crackles at the bases) Cardiovascular Rate/Rhythm: regular rate and regular rhythm; not tachycardic Heart Sounds: normal S1, normal S2 and + murmur Extremities: + edema (1+ edema confined to the ankles) Gastrointestinal (Abdomen) Inspection/Auscultation: normal bowel sounds; abdomen not distended Percussion/Palpation: abdomen soft; abdomen nontender Psychiatric A+Ox3, euthymic affect Lymphatic no cervical or axillary lymphadenopathy Discharge Data Allergies Allergy/AdvReac Type Severity Reaction Status Date / Time adhesive Allergy Intermediate RASH, Verified 10/31/21 10:03 REDDNESS AT SITE codeine Allergy Intermediate RASH, Verified 10/31/21 10:03 SEVERE ITCHING metronidazole Allergy Intermediate SEVERE Verified 10/31/21 10:03 YEAST/VAGINAL INFX morphine AdvReac Severe IRREGULAR Verified 10/31/21 10:03 HEART RATE, EXTREME SEDATION propoxyphene AdvReac Severe A-FIB Verified 10/31/21 10:03 Consultations 11/25/21 16:59 ED Decision to Admit Stat Ordered Studies 11/25/21 12:02 CT head/brain wo con Stat Hospital Course (1) Fall: (2) Generalized weakness: (3) Ambulatory dysfunction: (4) Amiodarone-induced thyroiditis: (5) Paroxysmal atrial fibrillation: (6) (HFpEF) heart failure with preserved ejection fraction: (7) LBBB (left bundle branch block): Plan This is an 89-year-old female with past medical history significant for hypertension, chronic left bundle-branch block, history of cerebral carotid artery aneurysm clipping in 1988, history of atrial flutter postoperatively 1988, hyperlipidemia, history of TIA with transient aphasia in 2017, paroxysmal atrial fibrillation 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 Delirium Possible Encephalopathy due to medication (steroids) Likely multifactorial given ongoing steroids, recent infection and elderly patient with multiple hospitalizations and recent move to personal care facility CT head without acute intracranial abnormality In setting of recent proteus UTI with completed treatment on 11/23. Repeat urine culture no growth. Received 1 dose empiric IV ceftriaxone. Leukocytosis of 16K --> 11K, steroids likely contributing Urine and blood cultures are negative Antibiotic was stopped Mentally she is back to her baseline No more confusion Getting very anxious to get out of the hospital No more delirium and does not have any more anxiety Generalize weakness Ambulatory dysfunction Left foot drop Fall secondary to sudden possible loss of consciousness/blackout Ambulates with walker, has chronic LE weakness using a brace for foot drop with neuro follow up scheduled for 11/28 Fall precautions, PT/OT while admitted PT recommending SNF. Daughter traveling in from [place]. Consider home with support of daughter and home health vs SNF. The patient wants to go to [facility]-referral is made and awaiting approval We will continue PT and OT evaluation Awaiting placement-prefers to go to [facility] Continue PT and OT-recommended SNF She will be going to personal-group home with continuation of physical therapy Amiodarone-induced thyroiditis Hyperthyroidism Has been on methimazole 10mg TID, dexamethasone 2mg BID Admitting provider discussed with endocrinology --> methimazole decreased to 10 mg BID and dexamethasone 1 mg BID. Repeat labs in 4 weeks Strongly advised to keep appointment with the anatomy and physiology instructor Paroxysmal atrial fibrillation Continue home metoprolol, Cardizem, digoxin Continue Eliquis Tachy lizeth syndrome s/p pacer Heart rate is controlled now Occasional palpitation without any chest pain and/or shortness of breath Denies any cardiac symptoms Heart rate remains controlled History of constipation Required manual disimpaction during previous admission so bowel regimen augmented No issues with new regimen per patient. Will need to take the laxatives regularly Hx of TIA (transient ischemic attack) Continue apixaban, statin DVT Ppx: Eliquis Dispo -PT recommending SNF. Medically stable for discharge. Daughter traveling in from [place]. Consider home with support of daughter and home health vs SNF. Daughter to work with PT tomorrow to evaluate patient's level of assistance. CM following. She has been denied to go to [facility] following peer to peer review She will be probably going to alf/home with continued physical therapy Discharge to personal-group home this afternoon Total Time Total Time Spent Total Time Spent (In Minutes): 40 minutes Discharge Plan Discharge Items Patient Disposition: Personal Half-Way Reason For Visit: CONFUSION, FALLS Discharge Diagnosis: Delirium-improved, ambulatory dysfunction, left foot drop, generalized weakness, and urinary induced thyroiditis, paroxysmal atrial fibrillation Condition on Discharge: Fair Activity: As commented below Activity Comment: Will need PT and OT Non-emergency contact: Primary Care Provider Call non-emergency contact if: you have any medication questions and your symptoms worsen Follow-up/Referrals: Chung Arrington DO [Primary Care Provider] - (Please make an appointment with your primary care provider within 7 days following discharge from the facility) Diet: Heart Healthy Addtl Attending Provider Instructions: Please take precautions to avoid fall Please take your medications as advised Please give appointments with your healthcare providers The anatomy and physiology instructor office will call you to make a follow-up appointment for your thyroid disease Pending Studies at Discharge: No Stand-Alone Forms: [facility], Smoking Cessation Skilled Items Patient informed of condition?: Yes DNR: Yes Discharge Level of Care: Other Communicable Disease: No Discharge Prognosis: Stable Lines: None Urinary Catheter: No Medications and DC Order Prescriptions: New dexamethasone 1 mg Tablet 1 mg PO BID 30 Days Qty: 60 0RF methimazole 10 mg tablet 10 mg PO BID Qty: 60 0RF Continued digoxin [Digitek] 125 mcg (0.125 mg) Tablet 125 mcg PO DAILY@1600 Qty: 30 0RF metoprolol succinate 25 mg Tablet Extended Release 24 Hr 75 mg PO QAM Qty: 30 0RF polyethylene glycol 3350 [Miralax] 17 gram Powder In Packet 17 g PO DAILY PRN (Reason: constipation) Qty: 14 0RF sennosides-docusate sodium [Senokot-S] 8.6-50 mg Tablet 1 tab PO QAM Qty: 30 0RF Rx Instructions: hold for loose stool atorvastatin 10 mg tablet 10 mg PO DAILY Qty: 30 0RF alprazolam 0.25 mg tablet 0.25 mg PO HS PRN (Reason: anxiety) Qty: 15 0RF magnesium hydroxide [Milk of Magnesia] 400 mg/5 mL Suspension 15 ml PO DAILY PRN (Reason: Constipation) Qty: 30 0RF docusate sodium [Stool Softener] 100 mg Capsule 100 mg PO HS PRN (Reason: Constipation) Qty: 30 0RF furosemide [Lasix] 20 mg tablet 20 mg PO 2XWK PRN (Reason: sweling and weight gain) Qty: 30 0RF diltiazem HCl 30 mg tablet 30 mg PO BID Qty: 60 0RF hydroxyzine HCl 10 mg Tablet 10 mg PO Q6 PRN (Reason: anxiety) Qty: 20 0RF potassium chloride 10 mEq tablet,ER particles/crystals 10 meq PO DAILY Qty: 30 0RF omega 9-cum-idf-fish oil [Fish Oil] 1,200 (144-216) mg Capsule 2 cap PO 3XWK Qty: 24 0RF melatonin 10 mg tablet 10 mg PO HS PRN (Reason: Sleep) Qty: 30 0RF Eliquis 2.5 mg Tablet 2.5 mg PO BID Qty: 60 0RF magnesium oxide 400 mg magnesium Tablet 400 mg PO QAM Qty: 30 0RF Glucosamine Chondroitin 550-30-1 mg Capsule 2 cap PO QAM Qty: 60 0RF Probiotic 10 billion cell capsule 100 mg PO DAILY Qty: 7 0RF Rx Instructions: Take once daily x 1 week. Discontinued dexamethasone 1 mg Tablet 2 mg PO BID Qty: 60 0RF methimazole 10 mg tablet 10 mg PO TID Qty: 90 0RF Discharge Orders: Discharge Order (Routine); Ordered 12/02/21 Ordered By: Maryan Balderas Admission Data Admit Date/Time: 11/25/21 17:38 Attending Provider: Maryan Balderas Admit Provider: Julio Cesar Rubio Primary Care Provider: Chung Arrington Other Providers: Julio Cesar Rubio ; [facility] Other Interventions: Discharge Summary Assessment (RN) Last Done: 12/02/21 14:40
== END 2021-12-02 15:56 | disposition home or self-care (01) | DRG 92 ==
LOC: ED 11:15 → 3W 17:38 → SUATTDRO 17:38 → 3W 21:04

== ENCOUNTER 2021-12-16 22:11 | Inpatient (IN) ==
--- NOTE | 2021-12-16 22:29 | Emergency Department Note ---
Impression & Plan Acute alteration in mental status, Elevated troponin I level, Recent head injury, Edema leg, Thrombocytopenia ED Provider Note NAME: FAHAD RICH AGE: 89 SEX: F : 1930 ARRIVES VIA: Ambulance INFORMANT: Patient, EMS ED PROVIDER(S): Nolberto Lindsey DO CHIEF COMPLAINT: Altered mental status HPI: The patient is an 89-year-old female who presented to the emergency department from her intermediate for an evaluation of altered mental status. The patient had a fall approximately 4 weeks ago. The patient has had decreased mental status ever since. She has been seen in our facility twice since the initial fall. The patient takes blood thinners. There is been no reported GI bleeding. There is been no reported chest pain nausea or vomiting. The patient has had lower extremity swelling which reportedly is worsened compared to baseline. There is been no fever or coughing. The patient has been compliant with her outpatient medications. Is unclear if the patient has seen her primary care physician for the symptoms other than being evaluated in the emergency department. ROS: See above HPI for pertinent positives & negatives. A total of 10 systems reviewed and were otherwise negative. PAST MEDICAL HISTORY: See Below PAST SURGICAL HISTORY: See Below FAMILY HISTORY: See Below SOCIAL HISTORY: See Below HOME MEDICATIONS: See Below ALLERGIES: See Below VITALS: See Below PHYSICAL EXAMINATION: GENERAL: The patient is awake to verbal commands but only moans. She does not answer questions appropriately. EYES: The conjunctivae are clear. The pupils are round and reactive. EARS, NOSE, MOUTH AND THROAT: The nose is without any evidence of any deformity. NECK: The neck is nontender and supple. RESPIRATORY: Normal respiratory effort is noted there is no evidence of wheezing rhonchi or rales CARDIOVASCULAR: Regular rate and rhythm noted there no murmurs rubs or gallops normal S1 normal S2. GASTROINTESTINAL: The abdomen is soft. Abdomen is nontender. MUSCULOSKELETAL/EXTREMITIES: There is no evidence of gross deformity full range of motion is noted in the hips and shoulders. SKIN: Skin is warm and dry. Pedal edema was noted bilaterally. NEUROLOGIC: Patient is awake to verbal commands. She does not answer questions appropriately so I cannot assess orientation. Strength is symmetric but diminished. MEDICAL DECISION MAKING: The patient is an 89-year-old female who presented to the emergency department from a personal m[facility] for an evaluation of altered mental status. Apparently the patient's been having worsening altered mental status over the course of the last few weeks. She was initially seen here about a month ago for a fall with a head injury. Her daughter states that since that time she has had decreasing mental status. She may have had a seizure as well. She has no history of seizures. I discussed patient's laboratory and radiographic studies with daughter. The patient does have an elevation in the troponin which is not new for her. EKG showed no acute changes. I discussed the other findings with the daughter. At this time she still contends that there is an acute alteration mental status which was preceded by another episode which could have been consistent with a seizure. For this reason I will discuss her case with the on- call [facility] hospitalist. Triage Nursing notes reviewed. Prior medical records reviewed Vital Signs: reviewed and remarkable for elevated blood pressure. Differential diagnosis: Infection, hypoglycemia, electrolyte abnormalities, overdose, toxicologic, car diac sources, intracerebral event, neurologic, trauma, as well as other pathologies. ER treatment provided: See below Diagnostics interpreted by me: ECG: EKG was obtained in the emergency department. My interpretation is atrial paced rhythm at 83 bpm. Left bundle branch block pattern was noted. There was no [place] beats. This was compared to a tracing from November 25, 2021. No changes were noted. Cardiac Monitoring: An order was placed for continuous cardiac monitoring. The monitor shows a rate of 81 bpm with a paced rhythm. Laboratory studies: As stated above and show below. Imaging studies: See below Consultation(s): Dr Long was notified about the patient. He will evaluate the patient in the emergency department. 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 Bay History of lung cancer 1993- s/p RUL lung resection History of TIA (transient ischemic attack) History of trigger finger multiple to both hands Hyperlipidemia Hypertension Longstanding LBBB (left bundle branch block) Chronic per cardio records NSTEMI (non-ST elevated myocardial infarction) Pacemaker Placed Mar 16, 2020> [facility] > follows Dr. 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 Bay SOB (shortness of breath) TIA (transient ischemic attack) no further issues > 2018 > doesn't follow neuro Surgical History H/O section x1 H/O hemorrhoidectomy H/O ultrasound guided needle biopsy of lung History of cardiac cath 2010 - no obstructive CAD History of carpal tunnel release bilat History of cataract surgery bilat History of colon resection 8 inches > 2001 History of colonoscopy History of hysterectomy History of lung surgery 1993 > RUL > due to cancer > no chemo/radiation History of right shoulder replacement reverse History of spinal surgery Hx of cholecystectomy Hx of exploratory thoracotomy Family History Aunt Diabetes Other Abdominal aortic aneurysm Stroke Social History Smoking Status: Unknown if ever smoked Tobacco Type: Cigarettes Second Hand Exposure: No; Hx Alcohol Use: Yes Alcohol type: wine Hx Substance Use: No Preferred Language: Surinamese Communication Ability: Effective Visual Impairment: Limited Hearing Ability: Hard of Hearing [employer] Required: No Beliefs That Will Affect Care: None marital status: Current Living Situation: Rehab Current Living Situation Comment: needs placement How many Children do You have: 2 Feels Safe at Home: Yes Assistive Devices: Walker and Wheelchair Allergies Allergies Allergy/AdvReac Type Severity Reaction Status Date / Time adhesive Allergy Intermediate RASH, Verified 10/31/21 10:03 REDDNESS AT SITE codeine Allergy Intermediate RASH, Verified 10/31/21 10:03 SEVERE ITCHING metronidazole Allergy Intermediate SEVERE Verified 10/31/21 10:03 YEAST/VAGINAL INFX morphine AdvReac Severe IRREGULAR Verified 10/31/21 10:03 HEART RATE, EXTREME SEDATION propoxyphene AdvReac Severe A-FIB Verified 10/31/21 10:03 Home Meds Home Medications Medication Instructions Recorded Confirmed acetaminophen 325 mg tablet 650 mg PO Q4 PRN Pain 12/16/21 12/16/21 metoprolol succinate 25 mg 25 mg PO QAM 12/16/21 12/16/21 tablet,extended release 24 hr metoprolol succinate 50 mg 50 mg PO QAM 12/16/21 12/16/21 tablet,extended release 24 hr Previous Rx's Medication Instructions Recorded digoxin 125 mcg (0.125 mg) tablet 125 mcg PO DAILY@1600 #30 tabs 09/24/21 (Digitek) Lactobacillus acidophilus 10 100 mg PO DAILY #7 caps 11/21/21 billion cell capsule (Probiotic) alprazolam 0.25 mg tablet 0.25 mg PO HS PRN anxiety #15 tabs 11/21/21 apixaban 2.5 mg tablet (Eliquis) 2.5 mg PO BID #60 tabs 11/21/21 atorvastatin 10 mg tablet 10 mg PO DAILY #30 tabs 11/21/21 diltiazem HCl 30 mg tablet 30 mg PO BID #60 tabs 11/21/21 docusate sodium 100 mg capsule 100 mg PO HS PRN Constipation #30 11/21/21 (Stool Softener) caps furosemide 20 mg tablet (Lasix) 20 mg PO 2XWK PRN sweling and 11/21/21 weight gain #30 tabs hydroxyzine HCl 10 mg tablet 10 mg PO Q6 PRN anxiety #20 tabs 11/21/21 magnesium hydroxide 400 mg/5 mL 15 ml PO DAILY PRN Constipation 11/21/21 oral suspension (Milk of Magnesia) #30 mL magnesium oxide 400 mg PO QAM #30 tabs 11/21/21 melatonin 10 mg tablet 10 mg PO HS PRN Sleep #30 tabs 11/21/21 omega 3-udw-ung-fish oil 1,200 mg 2 cap PO 3XWK #24 caps 11/21/21 (144 mg-216 mg) capsule (Fish Oil) polyethylene glycol 3350 17 gram 17 g PO DAILY PRN constipation #14 11/21/21 oral powder packet (Miralax) ea potassium chloride 10 mEq 10 meq PO DAILY #30 tabs 11/21/21 tablet,extended release(part/cryst) sennosides 8.6 mg-docusate sodium 1 tab PO QAM #30 tabs 11/21/21 50 mg tablet (Senokot-S) dexamethasone 1 mg tablet 1 mg PO BID 30 days #60 tabs 12/02/21 methimazole 10 mg tablet 10 mg PO BID #60 tabs 12/02/21 Results & Data (ED) Vital Signs Vital Signs - 24 hr 12/16/21 22:03 Temperature 36.6 C Temperature Source Oral Pulse Rate 81 Respiratory Rate 16 Respiratory Effort / Characteristics Non-Labored Respiratory Depth Normal Respiratory Pattern Regular Blood Pressure 166/77 H Blood Pressure Mean 106 Pulse Oximetry 97 Oxygen Delivery Method Room Air Sepsis Recent Fever Within 48 Hours No Sepsis New/Unexplained Change in Mental Status No Sepsis Action Taken by Nursing No Action Required Home Medications Current Medication List: was personally reviewed by me Laboratory Data Attestation: I reviewed the patient's lab results. Result diagrams: 12/16/21 22:36 12/16/21 22:36 Lab Results 12/16/21 12/16/21 12/16/21 Range/Units 22:36 22:36 22:36 WBC 8.95 (4.8-10.8) K/ul RBC 5.24 H (3.93-5.22) M/uL Hgb 14.4 (12.0-16.0) g/dl Hct 43.7 (34.1-44.9) % MCV 83.4 (80.0-100.0) fL MCH 27.5 (25.0-34.0) pg MCHC 33.0 (32.0-36.0) g/dL RDW Std Deviation 47.3 H (36.4-46.3) fL RDW Coeff of Coleman 15.8 H (11.5-14.5) % Plt Count 119 L (130-400) K/uL MPV 10.2 (9.4-12.3) fL Immature Gran % (Auto) 5.1 % Neut % (Auto) 83.9 % Lymph % (Auto) 6.3 % Door % (Auto) 4.4 % Eos % (Auto) 0.0 % Baso % (Auto) 0.3 % Neut # (Auto) 7.51 H (1.4-6.5) K/uL Lymph # (Auto) 0.56 L (1.2-3.4) K/uL Door # (Auto) 0.39 (0.24-0.82) K/uL Eos # (Auto) 0.00 (0-0.50) K/uL Baso # (Auto) 0.03 (0-0.2) K/uL Immature Gran # (Auto) 0.46 H (0.00-0.02) K/uL PT 9.5 (9.0-12.0) Seconds INR 0.9 (0.9-1.1) APTT 20.0 L (21.0-31.0) Seconds PTT Ratio 0.7 VBG pH (7.36-7.41) VBG pCO2 (38-50) mmHg VBG pO2 mmHg VBG HCO3 mmol/L VBG O2 Saturation % VBG Base Excess mEq/L Sodium 142 (136-145) mmol/L Potassium 4.1 (3.5-5.1) mmol/L Chloride 109 H (98-107) mmol/L Carbon Dioxide 28 (21-32) mmol/L Anion Gap 5 (3-11) BUN 33 H (6-23) mg/dl Creatinine 0.58 L (0.6-1.2) mg/dl Est Cr Clr Drug Dosing 58.8 ml/min Est GFR ( Amer) 94.7 ml/min Est GFR (Non-Af Amer) 81.7 ml/min BUN/Creatinine Ratio 56.9 H (10-20) Glucose 140 H (70-99(Fasting)) mg/dl Calcium 8.6 (8.5-10.1) mg/dl Magnesium 2.4 (1.7-2.4) mg/dl Total Bilirubin 1.0 (0.2-1.0) mg/dl AST 19 (13-39) U/L ALT 37 (7-52) U/L Alkaline Phosphatase 72 (34-104) U/L Total Creatine Kinase 44 (26-192) U/L Troponin I High Sens 185.6 H* D (0-14) pg/ml Total Protein 5.6 L (6.0-8.3) gm/dl Albumin 3.4 (3.4-5.0) gm/dl Globulin 2.2 L (2.5-4.0) gm/dl Albumin/Globulin Ratio 1.5 (0.9-2) TSH (0.300-4.500) uIu/ml SARS-CoV-2, RNA, NAAT (NEGATIVE) 12/16/21 12/16/21 12/16/21 Range/Units 22:36 23:11 23:12 WBC (4.8-10.8) K/ul RBC (3.93-5.22) M/uL Hgb (12.0-16.0) g/dl Hct (34.1-44.9) % MCV (80.0-100.0) fL MCH (25.0-34.0) pg MCHC (32.0-36.0) g/dL RDW Std Deviation (36.4-46.3) fL RDW Coeff of Coleman (11.5-14.5) % Plt Count (130-400) K/uL MPV (9.4-12.3) fL Immature Gran % (Auto) % Neut % (Auto) % Lymph % (Auto) % Door % (Auto) % Eos % (Auto) % Baso % (Auto) % Neut # (Auto) (1.4-6.5) K/uL Lymph # (Auto) (1.2-3.4) K/uL Door # (Auto) (0.24-0.82) K/uL Eos # (Auto) (0-0.50) K/uL Baso # (Auto) (0-0.2) K/uL Immature Gran # (Auto) (0.00-0.02) K/uL PT (9.0-12.0) Seconds INR (0.9-1.1) APTT (21.0-31.0) Seconds PTT Ratio VBG pH 7.39 (7.36-7.41) VBG pCO2 44 (38-50) mmHg VBG pO2 60 mmHg VBG HCO3 27 mmol/L VBG O2 Saturation 90.9 % VBG Base Excess 1.2 mEq/L Sodium (136-145) mmol/L Potassium (3.5-5.1) mmol/L Chloride (98-107) mmol/L Carbon Dioxide (21-32) mmol/L Anion Gap (3-11) BUN (6-23) mg/dl Creatinine (0.6-1.2) mg/dl Est Cr Clr Drug Dosing ml/min Est GFR ( Amer) ml/min Est GFR (Non-Af Amer) ml/min BUN/Creatinine Ratio (10-20) Glucose (70-99(Fasting)) mg/dl Calcium (8.5-10.1) mg/dl Magnesium (1.7-2.4) mg/dl Total Bilirubin (0.2-1.0) mg/dl AST (13-39) U/L ALT (7-52) U/L Alkaline Phosphatase (34-104) U/L Total Creatine Kinase (26-192) U/L Troponin I High Sens (0-14) pg/ml Total Protein (6.0-8.3) gm/dl Albumin (3.4-5.0) gm/dl Globulin (2.5-4.0) gm/dl Albumin/Globulin Ratio (0.9-2) TSH 1.957 (0.300-4.500) uIu/ml SARS-CoV-2, RNA, NAAT NEGATIVE (NEGATIVE) Imaging Data Attestation: I personally reviewed and interpreted this imaging study as follows: My Impression: 1 view chest x-ray was obtained in the emergency department. My interpretation is no definite free air, no definite infiltrate, pacemaker was noted. Postsurgical changes were noted with the right shoulder. Blunting of the co stophrenic angle was noted. This was compared to a chest x-ray from November 25, 2021. No changes were noted. 1 view x-ray of the pelvis was obtained. No definite fracture or acute abnormality was noted. No acute disease. Radiologist's Impression: Patient: FAHAD RICH (Female) : 34 Status: ER Date: 12/16/21 23:46 Room #: History: [facility] Slices: 67 Priors: Tech: Isaiah Rodriguezie @ [phone] Exams: CT HEAD Contrast: Accession Numbers: [id number] Referring Physician: NOLBERTO LINDSEY Preliminary Findings Only See Final Report For Complete Findings CT HEAD: Patient status post open aneurysm repair with surgical clip and craniotomy evident on the left. Associated encephalomalacia noted in the adjacent left frontal and temporal parenchyma No ICH, mass effect or edema. No evidence of acute cortical stroke. Periventricular small vessel ischemic change. Visualized sinuses and mastoid air cells are clear. Radiologist: Zach Santos MD Study ready at 23:48 and initial results transmitted at 23:59 Patient: FAHAD RICH (Female) : 34 Status: ER Date: 12/16/21 23:46 Room #: History: AMS, FELL Slices: 679 Priors: Tech: Pierre Rodriguez @ [phone] Exams: CT C SPINE Contrast: Accession Numbers: [id number] Referring Physician: NOLBERTO LINDSEY Preliminary Findings Only See Final Report For Complete Findings CT C SPINE: No fracture or subluxations are noted. The vertebral body heights and alig nment are preserved. No prevertebral soft tissue swelling. Note is made of multilevel cervical spondylosis with varying degrees of central canal and foramina stenoses. IMPRESSION: 1. No cervical fractures. 2. 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 Radiologist: Zach Santos MD Study ready at 23:48 and initial results transmitted at 00:00 Patient: FAHAD RICH (Female) : 34 Status: ER Date: 12/16/21 23:47 Room #: History: ABD DISTENTION Slices: 669 Priors: Tech:Pierre West @ [phone] Exams: CT ABDOMEN & PELVIS Without Contrast Contrast: Accession Numbers: [id number] Referring Physician: NOLBERTO LINDSEY Preliminary Findings Only See Final Report For Complete Findings CT ABDOMEN & PELVIS Without Contrast: The colon contains a moderate amount of fecal material compatible with constipation. No evidence for colonic or small bowel obstruction The small bowel and appendix are unremarkable Solid organs demonstrate no acute findings Patient appears to be status post cholecystectomy Radiologist: Zach Santos MD Study ready at 23:48 and initial results transmitted at 00:04 Discharge Plan Visit Data Chief Complaint: Altered Mental Status Stated Complaint: Increased confusion, fall 4wks ago, on thinners ED Provider: Nolberto Lindsey Discharge Problem: Acute alteration in mental status, Elevated troponin I level, Recent head injury, Edema leg, Thrombocytopenia Patient Disposition: Being Evaluated by Hospitalist Forms Stand Alone Forms: [facility] Prescriptions Prescriptions: No Action digoxin [Digitek] 125 mcg (0.125 mg) Tablet 125 mcg PO DAILY@1600 Qty: 30 0RF polyethylene glycol 3350 [Miralax] 17 gram Powder In Packet 17 g PO DAILY PRN (Reason: constipation) Qty: 14 0RF sennosides-docusate sodium [Senokot-S] 8.6-50 mg Tablet 1 tab PO QAM Qty: 30 0RF Rx Instructions: hold for loose stool atorvastatin 10 mg tablet 10 mg PO DAILY Qty: 30 0RF alprazolam 0.25 mg tablet 0.25 mg PO HS PRN (Reason: anxiety) Qty: 15 0RF magnesium hydroxide [Milk of Magnesia] 400 mg/5 mL Suspension 15 ml PO DAILY PRN (Reason: Constipation) Qty: 30 0RF docusate sodium [Stool Softener] 100 mg Capsule 100 mg PO HS PRN (Reason: Constipation) Qty: 30 0RF furosemide [Lasix] 20 mg tablet 20 mg PO 2XWK PRN (Reason: sweling and weight gain) Qty: 30 0RF diltiazem HCl 30 mg tablet 30 mg PO BID Qty: 60 0RF hydroxyzine HCl 10 mg Tablet 10 mg PO Q6 PRN (Reason: anxiety) Qty: 20 0RF potassium chloride 10 mEq tablet,ER particles/crystals 10 meq PO DAILY Qty: 30 0RF omega 9-zum-qxh-fish oil [Fish Oil] 1,200 (144-216) mg Capsule 2 cap PO 3XWK Qty: 24 0RF Rx Instructions: take on sundays,wednesdays and fridays melatonin 10 mg tablet 10 mg PO HS PRN (Reason: Sleep) Qty: 30 0RF Eliquis 2.5 mg Tablet 2.5 mg PO BID Qty: 60 0RF magnesium oxide 400 mg magnesium Tablet 400 mg PO QAM Qty: 30 0RF Probiotic 10 billion cell capsule 100 mg PO DAILY Qty: 7 0RF dexamethasone 1 mg Tablet 1 mg PO BID 30 Days Qty: 60 0RF methimazole 10 mg tablet 10 mg PO BID Qty: 60 0RF metoprolol succinate 50 mg tablet extended release 24 hr 50 mg PO QAM metoprolol succinate 25 mg tablet extended release 24 hr 25 mg PO QAM acetaminophen 325 mg Tablet 650 mg PO Q4 PRN (Reason: Pain) Referrals [place]: [email or web address] [Non-Staff] -
[2021-12-16 23:19] LABS: Base Excess VBG 1.2 mEq/L; HCO3 VBG 27 mmol/L; Oxygen Saturation VBG 90.9 %; PCO2 VBG 44 mmHg (38-50); PO2 VBG 60 mmHg; pH VBG 7.39 (7.36-7.41)
[2021-12-16 23:23] LABS: Albumin Globulin Ratio 1.5 (0.9-2); Albumin Level 3.4 gm/dl (3.4-5.0); BUN Creatinine Ratio 56.9 (10-20); Calcium 8.6 mg/dl (8.5-10.1); Creatinine Clr Calc Pharmacy 58.8 ml/min; Est GFR (African American) 94.7 ml/min; Est GFR (Non-African American) 81.7 ml/min; Globulin 2.2 gm/dl (2.5-4.0); Magnesium 2.4 mg/dl (1.7-2.4); Potassium 4.1 mmol/L (3.5-5.1); Total Protein 5.6 gm/dl (6.0-8.3)
[2021-12-16 23:38] LABS: INR 0.9 (0.9-1.1); Partial Thromboplastin Ratio 0.7; Prothrombin Time 9.5 Seconds (9.0-12.0)
[2021-12-16 23:42] LABS: Hematocrit (blood only) 43.7 % (34.1-44.9); Hemoglobin 14.4 g/dl (12.0-16.0); Mean Corpuscular Hemoglobin 27.5 pg (25.0-34.0); Mean Corpuscular Volume 83.4 fL (80.0-100.0); Mean Platelet Volume 10.2 fL (9.4-12.3); Platelet Count 119 K/uL (130-400); RDW Coefficient of Variation 15.8 % (11.5-14.5); RDW Standard Deviation 47.3 fL (36.4-46.3); Red Blood Count 5.24 M/uL (3.93-5.22); White Blood Count 8.95 K/ul (4.8-10.8)
[2021-12-16 23:43] LABS: Basophils # (auto) 0.03 K/uL (0-0.2); Basophils % (auto) 0.3 %; Immature Granulocytes # (auto) 0.46 K/uL (0.00-0.02); Immature Granulocytes % (auto) 5.1 %; Lymphocytes # (auto) 0.56 K/uL (1.2-3.4); Lymphocytes % (auto) 6.3 %; Monocytes # (auto) 0.39 K/uL (0.24-0.82); Monocytes % (auto) 4.4 %; Neutrophils # (auto) 7.51 K/uL (1.4-6.5); Neutrophils % (auto) 83.9 %
[2021-12-16 23:52] LABS: Troponin I High Sensitivity 185.6 pg/ml (0-14)
[2021-12-17] MEDS: D5W AND 1/2NSS 1,000 ML IV SCH ×2 (05:51→21:27)
[2021-12-17] MEDS ORDERED: FUROSEMIDE 20 MG TAB PO PRN (06:32)
[2021-12-17] MEDS ORDERED: DOCUSATE SODIUM 100 MG CAP PO PRN (06:32)
[2021-12-17] MEDS ORDERED: NITROGLYCERIN SL 0.4 MG/TAB TAB SL PRN (06:32)
[2021-12-17] MEDS ORDERED: MAGNESIUM HYDROXIDE SUSP 30 ML UDC PO PRN (06:32)
--- NOTE | 2021-12-17 06:45 | CT Scan Report ---
CT head/brain wo con CLINICAL HISTORY: 89 years-old Female with fall. Acute head trauma status post fall TECHNIQUE: Multiple axial CT images of the head were obtained without contrast. A dose lowering tech nique was utilized adhering to the principles of ALARA. COMPARISON: 11/25/2021 FINDINGS: No acute intracranial hemorrhage, midline shift, intracranial mass, hydrocephalus, territorial ischem ia or abnormal extra-axial collection. 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 Involutional changes with ex vacuo ventriculomegaly. 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 No acute calvarial fracture. 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 The paranasal sinuses, mastoid air cells, and middle ear cav ities are clear. Unremarkable soft tissues. Prior bilateral lens repair. IMPRESSION: Chronic findings as above without acute intracranial abnormality or acute calvarial fract ure. ACT 112: Negative or not required by law. The above report was generated using voice recognition software. It may contain grammatical, syntax o r spelling errors. Electronically signed by: Chacho Schrader M.D. 12/17/2021 6:44 AM
--- NOTE | 2021-12-17 07:18 | History and Physical Report ---
DATE OF ADMISSION: 12/17/2021. CHIEF COMPLAINT: Altered mental status. 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 During the last admission, initially they thought encephalopathy possibly from steroids and mental status came back to baseline, and she has some ambulatory dysfunction. PT/OT, initially recommended [facility], but later discharged to her NH with physical therapy. Was brought in by daughter today because the patient is getting confused. Daughter is not in the room, able to talk to daughter on phone. The patient is sleepy, drowsy, only mumbles some words and moans. Could not get any history from the patient . As per daughter las t few weeks her mental status is declining and she is not getting better.She had several episodes of sundowning. Sometimes she gets very angry. Sometimes she stops talking. Recently supposed to be seen by neurology for nerve studies but patient was very uncooperative. Not able to stand up. Yesterday before she was brought to the hospital she was very shaky in the wheel chair. Currently patient is very confused.. The patient also is having small superficial wounds in the lower extremity with dressing, but when dressing taken out has a small wound in the right calf region with slight drainage. Hemodynamically stable. ALLERGIES: ADHESIVES, CODEINE, METRONIDAZOLE, MORPHINE, PROPOXYPHENE. PAST MEDICAL HISTORY: As mentioned above. PAST SURGICAL HISTORY: Carpal tunnel surgery, colonoscopy, EGD with endoscopic ultrasound, trigger finger, cerebral aneurysm clipping in 1979, and lumbar back surgery. Shave biopsy of the right lower back with excision of the melanoma in situ, injection of sacral lumbar joint, partial colectomy, removal of intrapulmonary foreign body in 1983, cholecystectomy in 1962, sacroiliac joint injections, left rotator cuff shoulder surgery, right upper lung lobectomy for lung cancer in 1993, total abdominal hysterectomy with removal of tubes. MEDICATIONS: The patient is on Tylenol 650 mg p.o. q. 4 hours p.r.n., alprazolam 0.25 mg p.o. at bedtime p.r.n., atorvastatin 10 mg p.o. daily, dexamethasone 1 mg p.o. b.i.d., digoxin 125 mcg p.o. daily, diltiazem 30 mg p.o. b.i.d., Colace 100 mg p.o. at bedtime, Eliquis 2.5 mg p.o. b.i.d., Lasix 20 mg p.o. 2 times a week p.r.n., hydroxyzine 10 mg p.o. q. 6 hours p.r.n., milk of magnesia 15 mL p.o. daily p.r.n., magnesium oxide 400 mg p.o. a.m., melatonin 10 mg p.o. at bedtime p.r.n., methimazole 10 mg p.o. b.i.d., metoprolol succinate 75 mg p.o. daily, fish oil 2 capsules 3 times a week, MiraLax 17 g p.o. daily p.r.n., potassium chloride 10 mEq p.o. daily, probiotic 100 mg p.o. daily, Senokot S one tablet p.o. a.m. FAMILY HISTORY: Significant for aunt has diabetes; mother had heart disorder, abdominal aortic aneurysm; father had stroke. SOCIAL HISTORY: . No smoking. Alcohol, occasional wine. No drug use. REVIEW OF SYSTEMS: As per HPI. Rest of the review of systems is negative. PHYSICAL EXAMINATION: GENERAL: The patient is old and frail, confused, not answering any questions. VITAL SIGNS: Temperature 36.6, pulse is 62, respiratory rate 18, blood pressure 133/65, oxygen 98% on room air. HEENT: Pupils equal, round and reactive to light. Oral mucosa dry. NECK: No JVD. No neck masses. CARDIOVASCULAR: S1 and S2 heard. Regular rate and rhythm. No murmur, no gallop. RESPIRATORY SYSTEM: Normal AP diameter. No accessory muscle use. No wheezing, no crackles. ABDOMEN: Soft, bowel sounds present. Some mild discomfort, no rigidity, no distention. CENTRAL NERVOUS SYSTEM: The patient is confused, mumbles with low voice. Moves legs with painful stimuli. EXTREMITIES: Lower extremities, mild pedal edema present. Some superficial skin ulcers seen in bilateral wolfe regions and also some slight drainage only seen in the right calf region. LABORATORY DATA: WBC 8.9, hemoglobin 14.4, hematocrit 43.7, platelets 119. PT 9.5, INR 0.9, APTT 20. Venous blood gas, pH of 7.39. Sodium 142, potassium 4.1, chloride 109, bicarbonate 28, BUN 33, creatinine 0.5, serum glucose 140, calcium 8.6, magnesium 2.4, total bilirubin 1, AST 19, ALT 37, alkaline phosphatase 72, total creatine kinase 44. Troponin I high sensitivity 185. TSH is 1.9. SARS-CoV-2 rapid test negative. IMAGING DATA: CT abdomen and pelvis, preliminary report, constipation. Otherwise, no acute findings. CT head, preliminary report, no acute findings. EKG: Atrial paced rhythm with a rate of 83, left axis deviation, right bundle- branch block at a rate of 83, no significant change was found. ASSESSMENT AND PLAN: This is an 89-year-old female who presents with altered mental status. 1. Altered mental status: As per daughter, ongoing since the last few weeks. The patient is currently mumbling few words, not able to answer any questions, .. CT of the head and CT of the abdomen and pelvis, preliminary report is no acute findings. We will follow the final reports. The patient has some wounds in the lower extremity, we will follow the cultures. We will empirically start her on IV Zosyn and doxycycline. Daughter says she had shaky episode before coming to hospital. Post ictal? will get eeg, Neurology consult. Encephalopathy, unclear. Gentle fluids.Close monitor. 2. Mild elevation of troponin: Will follow serial cardiac enzymes. 3. History of generalized weakness, ambulatory dysfunction in the left foot: PT, OT when stable. 4. Amiodarone-induced thyroiditis and hyperthyroidism: On methimazole and dexamethasone 1 mg p.o. b.i.d. Follow up with endocrinology. 5. History of paroxysmal atrial fibrillation: On metoprolol, Cardizem, digoxin, and Eliquis. 6. Tachybrady syndrome: Status post pacemaker. We will monitor. 7. History of constipation: Stool softeners. 8. History of transient ischemic attack: On Eliquis and statin. 9. Deep venous thrombosis prophylaxis: On Eliquis. DISPOSITION: Admit to [facility] tele. To continue to monitor for mental status. PT, OT prior to discharge. Social service to help with discharge planning. Full code . Job ID: [id number] MTDD
[2021-12-17] MEDS ORDERED: PIPERACILLIN/TAZOBACTAM 3.375 GM in DEXTROSE 5% 100 ML IV ONE (07:30)
--- NOTE | 2021-12-17 07:55 | CT Scan Report ---
CT OF THE CERVICAL SPINE WITHOUT CONTRAST CLINICAL HISTORY: Fall. COMPARISON STUDY: Cervical spine CT September 23, 2021. TECHNIQUE: Helical axial images of the cervical spine were obtained without IV contrast. Sagittal a nd coronal reconstructions were viewed. Automated exposure control was utilized for the study. A do se lowering technique was utilized adhering to the principles of ALARA. FINDINGS: Reversal of the cervical lordosis is unchanged. Vertebral body heights are maintained. No a cute cervical spine fracture or subluxation is present. There is no prevertebral edema. Facet joints are intact. Severe multilevel degenerative changes within the cervical spine are again noted, simila r to prior exam IMPRESSION: No acute cervical spine fracture or subluxation. Severe multilevel degenerative changes w ithin the cervical spine. ACT 112: Negative or not required by law. Electronically signed by: Isai Troy M.D. 12/17/2021 7:53 AM
--- NOTE | 2021-12-17 08:04 | CT Scan Report ---
CT OF THE ABDOMEN AND PELVIS WITHOUT CONTRAST CLINICAL HISTORY: Abdominal distention. Altered mental status. COMPARISON STUDY: CT of the abdomen and pelvis September 15, 2021. TECHNIQUE: Axial images of the abdomen and pelvis were obtained without IV contrast. Images were revi ewed in the axial, sagittal, and coronal planes. Automated exposure control was utilized for the alejandrina dy. A dose lowering technique was utilized adhering to the principles of ALARA. FINDINGS: Lung bases are unremarkable. Evaluation of the abdomen and pelvis is suboptimal as unenhanc ed exam. No pneumatosis, free air or portal venous gas is present. Biliary ductal dilatation is uncha nged and likely related to cholecystectomy. Low-attenuation left adrenal nodule is unchanged. This fa vors an adenoma. Spleen, right adrenal gland, kidneys and pancreas are unremarkable. There is no hydr onephrosis. There are no urinary calculi. Colonic diverticulosis is noted without evidence for acute diverticulitis. Moderate amount stool is noted within the colon. There is no evidence for a bowel obs truction. There is no lymphadenopathy or ascites. No acute fracture within the lumbar spine, pelvis o r hips is identified. Multilevel degenerative changes are present. IMPRESSION: 1. No acute process within the abdomen or pelvis on unenhanced exam. 2. Colonic diverticulosis. No evidence for acute diverticulitis. Moderate amount of stool within the colon. 3. No urinary calculi or hydronephrosis. ACT 112: Negative or not required by law. Electronically signed by: Isai Troy M.D. 12/17/2021 8:03 AM
--- NOTE | 2021-12-17 08:19 | XRay Report ---
XR pelvis 1-2V routine CLINICAL HISTORY: fall COMPARISON: Pelvis radiograph November 21, 2021. FINDINGS: Sacroiliac joints and symphysis pubis are intact. There is no acute fracture within the pe lvis or hips on AP projection. Bilateral hip joint space narrowing with osteophytosis is present. IMPRESSION: No acute fracture within the pelvis or hips. ACT 112: Negative or not required by law. Electronically signed by: Isai Troy M.D. 12/17/2021 8:17 AM
--- NOTE | 2021-12-17 08:20 | XRay Report ---
XR chest 1V portable CLINICAL HISTORY: weakness COMPARISON STUDY: Chest radiograph November 25, 2021. FINDINGS: Reversed right shoulder arthroplasty and left subclavian pacer are noted. There is stable c ardiomegaly. No evidence for pulmonary edema. No pneumothorax or pleural effusion. Previous described right upper lobe nodule is obscured on this exam. Mild left basilar opacity favors atelectasis. Ther e is no consolidation to suggest pneumonia. IMPRESSION: No acute cardiopulmonary findings. No change in appearance of the chest. ACT 112: Negative or not required by law. Electronically signed by: Isai Troy M.D. 12/17/2021 8:19 AM
[2021-12-17] MEDS ORDERED: METOPROLOL SUCC 25MG EXT REL TAB PO SCH (09:00)
[2021-12-17 09:27] LABS: BUN Creatinine Ratio 60.9 (10-20); Calcium 8.3 mg/dl (8.5-10.1); Creatinine Clr Calc Pharmacy 74.1 ml/min; Est GFR (African American) 102.2 ml/min; Est GFR (Non-African American) 88.2 ml/min; Magnesium 2.3 mg/dl (1.7-2.4); Potassium 3.8 mmol/L (3.5-5.1)
[2021-12-17] MEDS: DOXYCYCLINE HYCLATE 100 MG in DEXTROSE 5% 100 ML IV SCH ×2 (09:39→21:28)
[2021-12-17 10:05] LABS: Basophils # (auto) 0.04 K/uL (0-0.2); Basophils % (auto) 0.4 %; Eosinophils # (auto) 0.01 K/uL (0-0.50); Eosinophils % (auto) 0.1 %; Hematocrit (blood only) 41.1 % (34.1-44.9); Hemoglobin 13.8 g/dl (12.0-16.0); Immature Granulocytes # (auto) 0.44 K/uL (0.00-0.02); Immature Granulocytes % (auto) 4.5 %; Lymphocytes # (auto) 0.97 K/uL (1.2-3.4); Mean Corpuscular Hemoglobin 27.8 pg (25.0-34.0); Mean Corpuscular Hgb Conc 33.6 g/dL (32.0-36.0); Mean Corpuscular Volume 82.7 fL (80.0-100.0); Mean Platelet Volume 10.2 fL (9.4-12.3); Monocytes # (auto) 0.55 K/uL (0.24-0.82); Monocytes % (auto) 5.7 %; Neutrophils # (auto) 7.69 K/uL (1.4-6.5); Neutrophils % (auto) 79.3 %; Ovalocytes 1+; Platelet Count 106 K/uL (130-400); RDW Coefficient of Variation 15.9 % (11.5-14.5); RDW Standard Deviation 47.8 fL (36.4-46.3); Red Blood Count 4.97 M/uL (3.93-5.22)
[2021-12-17 10:23] LABS: Appearance Urine Clear (Clear); Bacteria Urine Automated 2+ (Negative); Bilirubin Urine Negative (Negative); Blood Urine Negative (Negative); Color Urine Yellow; Glucose Urine UA Trace (Negative); Ketones Urine Negative (Negative); Leukocyte Esterase Urine Negative (Negative); Nitrite Urine Negative (Negative); Protein Urine Trace (Negative); Specific Gravity Urine 1.022 (1.000-1.030); Urobilinogen Urine Negative (Negative); pH Urine 6.5 (4.5-7.5)
[2021-12-17 10:45] LABS: RBC Urine Automated 0-4 /hpf (0-4)
--- NOTE | 2021-12-17 11:14 | Electrocardiogram Report ---
Test Reason : Blood Pressure : / mmHG Vent. Rate : 083 BPM Atrial Rate : 083 BPM P-R Int : 176 ms QRS Dur : 140 ms QT Int : 382 ms P-R-T Axes : -09 -38 115 degrees QTc Int : 448 ms Atrial-paced rhythm Left axis deviation Left bundle branch block Abnormal ECG When compared with ECG of 25-NOV-2021 11:46, No significant change was found Confirmed by Chalo Bernal ([id number]) on 12/17/2021 11:14:10 AM Referred By: [facility] Confirmed By:Alonso Bernal
[2021-12-17] MEDS ORDERED: POLYETHYLENE (MIRALAX) 17 GM PACK PO PRN (11:32)
[2021-12-17] MEDS: methIMAzole 5 MG TABLET PO SCH ×3 (11:44→21:27)
[2021-12-17] MEDS: dexAMETHasone 1 MG TAB PO SCH ×3 (11:44→21:26)
[2021-12-17] MEDS: ATORVASTATIN 10 MG TAB PO SCH (11:44)
[2021-12-17] MEDS: ADVANCED PROBIOTIC 1250 MG CAPSULE PO SCH (11:44)
[2021-12-17] MEDS: APIXABAN 2.5 MG TAB PO SCH ×3 (11:45→21:26)
[2021-12-17] MEDS: POTASSIUM CHLORIDE 10 MEQ TABCR PO SCH (11:45)
[2021-12-17] MEDS: MAGNESIUM OXIDE 400 MG TAB PO SCH (11:45)
[2021-12-17] MEDS: METOPROLOL SUCC 50MG EXT REL TAB PO SCH (11:45)
[2021-12-17] MEDS: DOCUSATE SODIUM/SENNA 50/8.6MG TAB PO SCH (11:45)
[2021-12-17] MEDS: dilTIAZem HCL 30 MG TAB PO SCH ×3 (11:46→21:26)
--- NOTE | 2021-12-17 12:02 | Neurology Consultation ---
Date of Consultation December 17, 2021 Assessment & Plan (1) Altered mental status: Plan 89-year old female correction patient with persistent altered mental status/encephalopathy. May have a urinary tract infection on urinalysis. May also be dehydrated. She is afebrile and does not have a leukocytosis. 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 Otherwise, no acute process on CT of the head. Although there does not appear to be any indication that this patient has been having seizures, I am unable to completely exclude subclinical seizure activity in this patient as a potential explanation for her persistent encephalopathy at this time. Agree with EEG as ordered. If EEG reveals epileptiform abnormalities would recommend starting IV Keppra in that context. Although an MRI of the brain, seizure protocol, would potentially be helpful in this case, history of cerebral aneurysm clipping and dual-chamber cardiac pacer likely preclude obtaining MRI. The patient's encephalopathy does not improve we will consider obtaining a repeat noncontrast CT of the head tomorrow morning to potentially exclude an evolving infarct. Continue supportive medical care, IV fluids, broad-spectrum antimicrobial therapy, follow-up with results of urine and blood cultures. History of Present Illness Reason for Consultation: Altered mental status Requesting Physician: Dr. Long Attending Physician: Maryan Balderas MD History of Present Illness The patient is an 89-year-old female who presented to the emergency department last night for further evaluation and management of altered mental status, she is a correction resident. She reportedly had a fall about 4 weeks ago and has been exhibiting altered mental status since that time. She was admitted to the [facility] from November 25 through December 02 for delirium with associated ambulatory dysfunction, left foot drop, generalized weakness, thyroiditis, and paroxysmal atrial fibrillation. History also notable for cerebral carotid artery aneurysm clipping in 1988, history of atrial flutter, hyperlipidemia, TIA, aphasia in 2017, atrial fibrillation, tachybradycardia syndrome, status postplacement of dual-chamber pacemaker in 2020, history of amiodarone induced thyrotoxicosis, pulmonary nodules. Recent treatment for Proteus UTI. Altered m ental status noted during patient's last hospitalization felt to be potentially related to corticosteroids, subsequently improved. In the context of patient's current emergency department evaluation and hospitalization she has exhibited persistent encephalopathy, confusion, essentially nonverbal, moaning at times, otherwise resting quietly, nonagitated, but generally unresponsive, not following commands. Neurology consulted for further assistance, there is a question as to whether or not patient could be "postictal" it looks like an EEG was ordered. A CT of the head completed yesterday revealed an area of encephalomalacia within the inferior left frontal lobe, chronic, no change compared with prior study. There is evidence of generalized atrophy with associated hydrocephalus ex vacuo and chronic microvascular ischemic disease. Evidence of prior left frontotemporal craniotomy with left supraclinoid aneurysm clipping. I independently reviewed these images and was able to appreciate these findings. Allergies Allergy/AdvReac Type Severity Reaction Status Date / Time adhesive Allergy Intermediate RASH, Verified 10/31/21 10:03 REDDNESS AT SITE codeine Allergy Intermediate RASH, Verified 10/31/21 10:03 SEVERE ITCHING metronidazole Allergy Intermediate SEVERE Verified 10/31/21 10:03 YEAST/VAGINAL INFX morphine AdvReac Severe IRREGULAR Verified 10/31/21 10:03 HEART RATE, EXTREME SEDATION propoxyphene AdvReac Severe A-FIB Verified 10/31/21 10:03 Home Medications Medication Instructions Recorded Confirmed Type digoxin 125 mcg (0.125 mg) tablet 125 mcg PO DAILY@1600 #30 tabs 09/24/21 12/16/21 Rx (Digitek) Lactobacillus acidophilus 10 100 mg PO DAILY #7 caps 11/21/21 12/16/21 Rx billion cell capsule (Probiotic) alprazolam 0.25 mg tablet 0.25 mg PO HS PRN anxiety #15 tabs 11/21/21 12/16/21 Rx apixaban 2.5 mg tablet (Eliquis) 2.5 mg PO BID #60 tabs 11/21/21 12/16/21 Rx atorvastatin 10 mg tablet 10 mg PO DAILY #30 tabs 11/21/21 12/16/21 Rx diltiazem HCl 30 mg tablet 30 mg PO BID #60 tabs 11/21/21 12/16/21 Rx docusate sodium 100 mg capsule 100 mg PO HS PRN Constipation #30 11/21/21 12/16/21 Rx (Stool Softener) caps furosemide 20 mg tablet (Lasix) 20 mg PO 2XWK PRN sweling and 11/21/21 12/16/21 Rx weight gain #30 tabs hydroxyzine HCl 10 mg tablet 10 mg PO Q6 PRN anxiety #20 tabs 11/21/21 12/16/21 Rx magnesium hydroxide 400 mg/5 mL 15 ml PO DAILY PRN Constipation 11/21/21 12/16/21 Rx oral suspension (Milk of Magnesia) #30 mL magnesium oxide 400 mg PO QAM #30 tabs 11/21/21 12/16/21 Rx melatonin 10 mg tablet 10 mg PO HS PRN Sleep #30 tabs 11/21/21 12/16/21 Rx omega 8-hcp-qew-fish oil 1,200 mg 2 cap PO 3XWK #24 caps 11/21/21 12/16/21 Rx (144 mg-216 mg) capsule (Fish Oil) polyethylene glycol 3350 17 gram 17 g PO DAILY PRN constipation #14 11/21/21 12/16/21 Rx oral powder packet (Miralax) ea potassium chloride 10 mEq 10 meq PO DAILY #30 tabs 11/21/21 12/16/21 Rx tablet,extended release(part/cryst) sennosides 8.6 mg-docusate sodium 1 tab PO QAM #30 tabs 11/21/21 12/16/21 Rx 50 mg tablet (Senokot-S) dexamethasone 1 mg tablet 1 mg PO BID 30 days #60 tabs 12/02/21 12/16/21 Rx methimazole 10 mg tablet 10 mg PO BID #60 tabs 12/02/21 12/16/21 Rx acetaminophen 325 mg tablet 650 mg PO Q4 PRN Pain 12/16/21 12/16/21 History metoprolol succinate 25 mg 25 mg PO QAM 12/16/21 12/16/21 History tablet,extended release 24 hr metoprolol succinate 50 mg 50 mg PO QAM 12/16/21 12/16/21 History tablet,extended release 24 hr Patient History Medical History Aneurysm brain> surgery to repair at [place] > 1988 Per records "History of cerebral carotid artery aneurysm clipping 1988 " COVID Dysarthria GERD (gastroesophageal reflux disease) Heart failure follows Dr. Bay History of lung cancer 1993- s/p RUL lung resection History of TIA (transient ischemic attack) History of trigger finger multiple to both hands Hyperlipidemia Hypertension Longstanding LBBB (left bundle branch block) Chronic per cardio records NSTEMI (non-ST elevated myocardial infarction) Pacemaker Placed Mar 16, 2020> [facility] > follows Dr. 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 Bay SOB (shortness of breath) TIA (transient ischemic attack) no further issues > 2018 > doesn't follow neuro Surgical History H/O section x1 H/O hemorrhoidectomy H/O ultrasound guided needle biopsy of lung History of cardiac cath 2010 - no obstructive CAD History of carpal tunnel release bilat History of cataract surgery bilat History of colon resection 8 inches > 2001 History of colonoscopy History of hysterectomy History of lung surgery 1993 > RUL > due to cancer > no chemo/radiation History of right shoulder replacement reverse History of spinal surgery Hx of cholecystectomy Hx of exploratory thoracotomy Family History Aunt Diabetes Other Abdominal aortic aneurysm Stroke Social History Smoking Status: Unknown if ever smoked Tobacco Type: Cigarettes Second Hand Exposure: No; Hx Alcohol Use: Yes Alcohol type: wine Hx Substance Use: No Preferred Language: Khmer Communication Ability: Effective Visual Impairment: Limited Hearing Ability: Hard of Hearing Concrete Panel Installer Required: No Beliefs That Will Affect Care: None marital status: Current Living Situation: Rehab Current Living Situation Comment: needs placement How many Children do You have: 2 Feels Safe at Home: Yes Safety Concerns: Feels Safe At This Time Assistive Devices: Glasses, Walker and Wheelchair Review of Systems Review of Systems: Unobtainable due to cognitive status and Unobtainable due to reduced consciousness Exam (Neuro) Constitutional: + behavioral limitations and + frail appearing Eyes: PERRL and EOM intact bilaterally Cardiovascular: Vessels: no carotid bruit Neurologic: Oriented to:: negative Person, Place or Time Memory: negative Short Term Intact or Remote Intact Attention: negative Span Intact or Concentration Intact Speech Fluency: Limited Comprehension and Other (No spontaneous speech, occasional groaning/moaning) Fund of Knowledge: negative Current Events, Past History or Vocabulary Details: Pupils equal round reactive to light, no gaze preference or nystagmus, blink reflex intact. Unable to assess visual costa or visual acuity. No facial droop. Unable to assess hearing or movement of the tongue or palate or shoulder shrug. Patient lying relatively still in bed, does not exhibit obvious posturing or hemiparesis. No abnormal movements. No tremors or dyskinesias. Muscle tone normal throughout. No focal atrophy. Unable to evaluate sensory function or coordination. Deep tendon reflexes diminished throughout, plantar responses withdrawal bilaterally. Unable to evaluate gait. Results & Data ([facility]) Vital Signs (Past 12 Hours) Vital Signs Pulse Pulse Resp BP Pulse Ox O2 Del Method 12/17/21 10:43 68 19 157/78 H 98 Room Air 12/17/21 07:00 61 19 162/74 H 98 Room Air 12/17/21 06:00 65 16 157/69 H 98 Room Air 12/17/21 04:00 62 18 133/65 98 Room Air 12/17/21 02:15 65 16 135/76 98 Room Air 12/17/21 00:05 67 17 157/84 H 96 Room Air 12/17/21 01:21 65 17 97 Room Air Laboratory Results WBC 9.70, hemoglobin 13.8, hematocrit 41.1, platelet count 106, sodium 142, pota ssium 3.8, BUN 28, creatinine 0.46, glucose 120, magnesium 2.3, AST 19, ALT 37, troponin high-sensitivity 185.6, TSH 1.957, urinalysis trace protein, trace glucose, 5-10 epithelial cells, 2+ bacteria, SARS-CoV-[address] testing negative Diagnostic Findings CT of the head is as described in the HPI. Chest x-ray is negative for acute cardiopulmonary findings. Pelvis x-ray negative for fracture within the pelvis or hips. CT of the abdomen and pelvis negative for acute process. Coding Level of Care Code 04364 Initial Inpt Care Lvl 3 Diagnoses Altered mental status R41.0 Altered mental status type: delirium (1) Altered mental status Altered mental status type: delirium Qualified Code(s): R41.0 - Disorientation, unspecified
--- NOTE | 2021-12-17 15:43 | Hospitalist Progress Note ---
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 At presentation, patient was mumbling and not answering any questions. 12/17 AM exam, patient was oriented x3 but unable to move her left lower extremity. Sensation was intact BLE. Patient does have a history of recurrent falls. Patient had ? shaky episode before coming to the hospital, concern for postictal Admitting imagings C-spine CT: No acute findings but with severe multilevel degenerative changes within the cervical spine. Head CT: Chronic finding of encephalomalacia of the inferior left frontal lobe. Involutional changes with ex vacuo ventriculomegaly. Pelvic x-ray: No acute findings. CXR: No acute findings. CTAP: No acute findings. Neurology consulted, EEG, appreciate recommendation. Speech evaluated 12/17, cleared her for diet. If eating appropriately, can DC IVF. BLE wounds, superficial laceration on right lateral calf [noted to be draining at admission] Patient started on Zosyn and doxycycline on 12/17, continue with same. Follow final results on wound culture and blood culture. Mild elevation of troponin: Troponin elevated at presentation, patient with no chest pain, likely chronic, will trend troponin. Admitting EKG with no acute changes. Generalized weakness/ambulatory dysfunction in the left foot: PT/OT when stable Amiodarone induced thyroiditis and hyperthyroidism: On methimazole and dexamethasone 1 Mg p.o. twice daily. Follows endocrinology. Paroxysmal A. fib: On metoprolol/Cardizem/digoxin/Eliquis. Other chronic medical conditions: Tachybradycardia syndrome [status post pacemaker], constipation [on a stool softener], history of TIA --->> continue with/resume home meds as and when appropriate. DVT prophylaxis: Eliquis Full code Pt's dtr Marianela given a phone call, left voicemail to call back and ask for Dr. Rubio. Admission and Anticipated Discharge Date Admission Date: December 17, 2021 Subjective Patient seen and examined at bedside as a follow-up of altered mental status and mild elevation of troponin. Patient was sitting up in bed, oriented x3, alert, NAD, per RN patient was confused overnight and early in the morning, discussed with speech and they cleared her for diet, patient denies any headache or dizziness or sore throat or cough or fever, patient reports feeling weak and tired, patient reports that " she is sick" that is why she is in the hospital. Denies other review of symptoms. Physical Exam Physical Exam: GENERAL: Alert and oriented x3. NAD, on RA. Appears old/ill/frail/weak. HEENT: No pallor, no icterus. Pupils equal, round and reactive to light. Oral mucosa moist. NECK: No JVD, no neck masses. HEART: S1 and S2 heard. Regular rate and rhythm. No murmur, no gallop. RESPIRATORY SYSTEM: Normal AP diameter. No accessory muscle use. No wheezing, no crackles. ABDOMEN: Soft, bowel sounds present, nontender, no distention. CENTRAL NERVOUS SYSTEM: No facial droop. Speech is clear. Obeys simple commands. Moves extremities. EXTREMITIES: LLE weak 0-1/5; RLE 5/5. sensation ble intact. b/l shins w/ bruises, Rt lateral leg w/ wound/superficial laceration. 1+ pitting edema BLE. Results & Data Results & Data ([facility]) Vital Signs (Past 12 Hours) Vital Signs Pulse Resp BP Pulse Ox O2 Del Method 12/17/21 14:16 86 19 129/75 98 Room Air 12/17/21 10:43 68 19 157/78 H 98 Room Air 12/17/21 07:00 61 19 162/74 H 98 Room Air 12/17/21 06:00 65 16 157/69 H 98 Room Air 12/17/21 04:00 62 18 133/65 98 Room Air (1) Altered mental status Altered mental status type: delirium Qualified Code(s): R41.0 - Disorientation, unspecified
[2021-12-17] MEDS: PIPERACILLIN/TAZOBACTAM 3.375 GM in DEXTROSE 5% 100 ML IV SCH (16:31)
[2021-12-17] MEDS: DIGOXIN 0.125 MG TAB PO SCH (16:32)
[2021-12-17] MEDS: ACETAMINOPHEN 325 MG TAB PO PRN ×2 (20:53→21:28)
[2021-12-17] MEDS: POLYETHYLENE (MIRALAX) 17 GM PACK PO PRN (20:53)
[2021-12-17] MEDS: MELATONIN 3 MG TAB PO PRN ×2 (20:54→21:24)
[2021-12-18] MEDS: PIPERACILLIN/TAZOBACTAM 3.375 GM in DEXTROSE 5% 100 ML IV SCH ×3 (01:26→15:34)
[2021-12-18] MEDS: hydrOXYzine HCl 10 MG TAB PO PRN (03:32)
[2021-12-18] MEDS: ACETAMINOPHEN 325 MG TAB PO PRN ×2 (04:27→15:04)
[2021-12-18 07:14] LABS: Hematocrit (blood only) 37.8 % (34.1-44.9); Hemoglobin 12.8 g/dl (12.0-16.0); Mean Corpuscular Hemoglobin 27.7 pg (25.0-34.0); Mean Corpuscular Hgb Conc 33.9 g/dL (32.0-36.0); Mean Corpuscular Volume 81.8 fL (80.0-100.0); Platelet Count 110 K/uL (130-400); RDW Coefficient of Variation 15.8 % (11.5-14.5); RDW Standard Deviation 46.5 fL (36.4-46.3); Red Blood Count 4.62 M/uL (3.93-5.22); White Blood Count 7.28 K/ul (4.8-10.8)
[2021-12-18 07:27] LABS: BUN Creatinine Ratio 45.5 (10-20); Calcium 7.9 mg/dl (8.5-10.1); Creatinine Clr Calc Pharmacy 71.7 ml/min; Est GFR (African American) 103.7 ml/min; Est GFR (Non-African American) 89.5 ml/min; Magnesium 2.1 mg/dl (1.7-2.4); Phosphorus 2.5 mg/dl (2.5-4.9); Potassium 3.9 mmol/L (3.5-5.1)
[2021-12-18] MEDS: DOXYCYCLINE HYCLATE 100 MG in DEXTROSE 5% 100 ML IV SCH ×2 (08:59→19:33)
[2021-12-18] MEDS: METOPROLOL SUCC 50MG EXT REL TAB PO SCH (10:56)
[2021-12-18] MEDS: ADVANCED PROBIOTIC 1250 MG CAPSULE PO SCH (10:56)
[2021-12-18] MEDS: POTASSIUM CHLORIDE 10 MEQ TABCR PO SCH (10:57)
[2021-12-18] MEDS: MAGNESIUM OXIDE 400 MG TAB PO SCH (10:57)
[2021-12-18] MEDS: dexAMETHasone 1 MG TAB PO SCH ×2 (10:57→20:53)
[2021-12-18] MEDS: APIXABAN 2.5 MG TAB PO SCH ×2 (10:57→20:53)
[2021-12-18] MEDS: methIMAzole 5 MG TABLET PO SCH ×2 (10:57→20:54)
[2021-12-18] MEDS: dilTIAZem HCL 30 MG TAB PO SCH ×2 (10:57→20:52)
[2021-12-18] MEDS: DOCUSATE SODIUM/SENNA 50/8.6MG TAB PO SCH (10:57)
[2021-12-18] MEDS: ATORVASTATIN 10 MG TAB PO SCH (10:57)
--- NOTE | 2021-12-18 10:58 | Electroencephalogram ---
EEG Procedure Note Date of Service December 18, 2021 Start / End Times Start Time: 10:20 AM End Time: 10:[address] Long History Encephalopathy, evaluate for seizure Home Medication List Medication Instructions Recorded Confirmed Type digoxin 125 mcg (0.125 mg) tablet 125 mcg PO DAILY@1600 #30 tabs 09/24/21 12/16/21 Rx (Digitek) Lactobacillus acidophilus 10 100 mg PO DAILY #7 caps 11/21/21 12/16/21 Rx billion cell capsule (Probiotic) alprazolam 0.25 mg tablet 0.25 mg PO HS PRN anxiety #15 tabs 11/21/21 12/16/21 Rx apixaban 2.5 mg tablet (Eliquis) 2.5 mg PO BID #60 tabs 11/21/21 12/16/21 Rx atorvastatin 10 mg tablet 10 mg PO DAILY #30 tabs 11/21/21 12/16/21 Rx diltiazem HCl 30 mg tablet 30 mg PO BID #60 tabs 11/21/21 12/16/21 Rx docusate sodium 100 mg capsule 100 mg PO HS PRN Constipation #30 11/21/21 12/16/21 Rx (Stool Softener) caps furosemide 20 mg tablet (Lasix) 20 mg PO 2XWK PRN sweling and 11/21/21 12/16/21 Rx weight gain #30 tabs hydroxyzine HCl 10 mg tablet 10 mg PO Q6 PRN anxiety #20 tabs 11/21/21 12/16/21 Rx magnesium hydroxide 400 mg/5 mL 15 ml PO DAILY PRN Constipation 11/21/21 12/16/21 Rx oral suspension (Milk of Magnesia) #30 mL magnesium oxide 400 mg PO QAM #30 tabs 11/21/21 12/16/21 Rx melatonin 10 mg tablet 10 mg PO HS PRN Sleep #30 tabs 11/21/21 12/16/21 Rx omega 0-vbi-dnb-fish oil 1,200 mg 2 cap PO 3XWK #24 caps 11/21/21 12/16/21 Rx (144 mg-216 mg) capsule (Fish Oil) polyethylene glycol 3350 17 gram 17 g PO DAILY PRN constipation #14 11/21/21 12/16/21 Rx oral powder packet (Miralax) ea potassium chloride 10 mEq 10 meq PO DAILY #30 tabs 11/21/21 12/16/21 Rx tablet,extended release(part/cryst) sennosides 8.6 mg-docusate sodium 1 tab PO QAM #30 tabs 11/21/21 12/16/21 Rx 50 mg tablet (Senokot-S) dexamethasone 1 mg tablet 1 mg PO BID 30 days #60 tabs 12/02/21 12/16/21 Rx methimazole 10 mg tablet 10 mg PO BID #60 tabs 12/02/21 12/16/21 Rx acetaminophen 325 mg tablet 650 mg PO Q4 PRN Pain 12/16/21 12/16/21 History metoprolol succinate 25 mg 25 mg PO QAM 12/16/21 12/16/21 History tablet,extended release 24 hr metoprolol succinate 50 mg 50 mg PO QAM 12/16/21 12/16/21 History tablet,extended release 24 hr Inpatient Medication List Acetaminophen (Acetaminophen 325 Mg Tab) 650 mg PO Q4H PRN PRN Reason: Pain or Fever Stop: 01/16/22 06:31 Last Admin: 12/18/21 04:27 Dose: 650 mg Documented By: Admin: 12/17/21 21:28 Dose: 650 mg Documented By: CIARA Apixaban (Apixaban 2.5 Mg Tab) 2.5 mg PO BID [facility] Stop: 01/16/22 08:59 Last Admin: 12/17/21 21:26 Dose: Not Given Documented By: Admin: 12/17/21 11:45 Dose: 2.5 mg Documented By: VONDA Atorvastatin Calcium (Atorvastatin 10 Mg Tab) 10 mg PO DAILY [facility] Stop: 01/16/22 08:59 Last Admin: 12/17/21 11:44 Dose: 10 mg Documented By: VONDA Dexamethasone (Dexamethasone 1 Mg Tab) 1 mg PO BID [facility] Stop: 01/16/22 08:59 Last Admin: 12/17/21 21:26 Dose: Not Given Documented By: Admin: 12/17/21 11:44 Dose: 1 mg Documented By: VONDA Digoxin (Digoxin 0.125 Mg Tab) 0.125 mg PO DAILY@1600 [facility] Stop: 01/16/22 15:59 Last Admin: 12/17/21 16:32 Dose: 0.125 mg Documented By: DEDE Diltiazem HCl (Diltiazem Hcl 30 Mg Tab) 30 mg PO BID [facility] Stop: 01/16/22 08:59 Last Admin: 12/17/21 21:26 Dose: Not Given Documented By: Admin: 12/17/21 11:46 Dose: 30 mg Documented By: NH Hydroxyzine HCl (Hydroxyzine Hcl 10 Mg Tab) 10 mg PO Q6 PRN PRN Reason: anxiety Stop: 01/16/22 06:31 Last Admin: 12/18/21 03:32 Dose: 10 mg Documented By: CIARA Dextrose/Sodium Chloride (D5w And 1/2nss) 1,000 mls @ 75 mls/hr IV .[id number] [facility] Stop: 01/16/22 05:29 Last Admin: 12/17/21 21:27 Dose: Not Given Documented By: Infusion: 12/17/21 12:31 Dose: 0 mls/hr Documented By: Admin: 12/17/21 05:51 Dose: 75 mls/hr Documented By: CATHY Piperacillin Sod/Tazobactam (Sod 3.375 gm/ Dextrose) 115 mls @ 28.75 mls/hr IV Q8H [facility]; Protocol Stop: 12/24/21 15:59 Last Infusion: 12/18/21 08:39 Dose: 0 mls/hr Documented By: Admin: 12/18/21 01:26 Dose: 28.8 mls/hr Documented By: Infusion: 12/17/21 20:31 Dose: 0 mls/hr Documented By: Admin: 12/17/21 16:31 Dose: 28.8 mls/hr Documented By: DEDE Doxycycline Hyclate 100 mg/ (Dextrose) 110 mls @ 50 mls/hr IV Q12H [facility] Stop: 12/24/21 07:59 Last Admin: 12/18/21 08:59 Dose: 50 mls/hr Documented By: Admin: 12/17/21 21:28 Dose: Not Given Documented By: Infusion: 12/17/21 12:31 Dose: 0 mls/hr Documented By: Admin: 12/17/21 09:39 Dose: 50 mls/hr Documented By: VONDA Lactobacillus Acidophilus (Advanced Probiotic 1250 Mg Capsule) 2 cap PO DAILY [facility] Stop: 01/16/22 08:59 Last Admin: 12/17/21 11:44 Dose: 2 cap Documented By: NH Magnesium Oxide (Magnesium Oxide 400 Mg Tab) 400 mg PO QAM [facility] Stop: 01/16/22 08:59 Last Admin: 12/17/21 11:45 Dose: 400 mg Documented By: NH Melatonin (Melatonin 3 Mg Tab) 9 mg PO HS PRN PRN Reason: Sleep Stop: 01/16/22 07:07 Last Admin: 12/17/21 21:24 Dose: 9 mg Documented By: CIARA Methimazole (Methimazole 5 Mg Tablet) 10 mg PO BID [facility] Stop: 01/16/22 08:59 Last Admin: 12/17/21 21:27 Dose: Not Given Documented By: Admin: 12/17/21 11:44 Dose: 10 mg Documented By: NH Metoprolol Succinate (Metoprolol Succ 50mg Ext Rel Tab) 75 mg PO QAM [facility] Stop: 01/16/22 08:59 Last Admin: 12/17/21 11:45 Dose: 75 mg Documented By: NH Polyethylene Glycol (Polyethylene (Miralax) 17 Gm Pack) 17 gm PO DAILY PRN PRN Reason: constipation Stop: 01/16/22 06:31 Last Admin: 12/17/21 20:53 Dose: 17 gm Documented By: CIARA Potassium Chloride (Potassium Chloride 10 Meq Tabcr) 10 meq PO DAILY [facility] Stop: 01/16/22 08:59 Last Admin: 12/17/21 11:45 Dose: 10 meq Documented By: VONDA Senna/Docusate Sodium (Docusate Sodium/Senna 50/8.6mg Tab) 1 tab PO QAM [facility] Stop: 01/16/22 08:59 Last Admin: 12/17/21 11:45 Dose: 1 tab Documented By: NH Discontinued Medications Piperacillin Sod/Tazobactam (Sod 3.375 gm/ Dextrose) 115 mls @ 230 mls/hr IV NOW ONE; Protocol Stop: 12/17/21 07:59 Last Infusion: 12/17/21 13:01 Dose: 0 mls/hr Documented By: Admin: 12/17/21 09:39 Dose: 230 mls/hr Documented By: NH Description This is a 21 electrode EEG with a single channel dedicated to limited EKG. The electrodes were placed in accordance with the International 10-20 system. There is a posterior dominant rhythm of 9 Hz which is symmetrically distributed and attenuates with eye opening. There is a normal anterior to posterior organization. Photic stimulation is unremarkable, hyperventilation is not performed. There is a prominent symmetric frontal beta rhythm. There is some admixed generalized polymorphic theta activity. There is no focal slowing. There are no epileptiform abnormalities, there are no sleep changes. There is movement artifact intermittently throughout the study. Interpretation Fairly normal-appearing awake/drowsy EEG. Other than a prominent beta rhythm and admixed theta activity, the study is negative for focal slowing or epileptiform abnormalities. Prominent beta activity could be consistent with previous exposure to sedatives. The admixed theta activity could suggest a mild nonspecific encephalopathy. Again, no epileptiform abnormalities observed. [facility] EEG Procedure Codes Indication for Procedure (1) Altered mental status: (2) Seizure-like activity: Neurology Neurology: 60417 EEG include record awake & drowsy
[2021-12-18] MEDS: D5W AND 1/2NSS 1,000 ML IV SCH (11:22)
--- NOTE | 2021-12-18 14:58 | Hospitalist Progress Note ---
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 At presentation, patient was mumbling and not answering any questions. 12/17 AM exam, patient was oriented x3 but unable to move her left lower extremity. Sensation was intact BLE. Patient does have a history of recurrent falls. Patient had ? shaky episode before coming to the hospital, concern for postictal Admitting imagings C-spine CT: No acute findings but with severe multilevel degenerative changes within the cervical spine. Head CT: Chronic finding of encephalomalacia of the inferior left frontal lobe. Involutional changes with ex vacuo ventriculomegaly. Pelvic x-ray: No acute findings. CXR: No acute findings. CTAP: No acute findings. 12/18 EEG: fairly normal-appearing awake/drowsy EEG. No epileptiform abnormalities observed. Neurology consulted, appreciate recommendation. Will get repeat CT head as patient still w/ AMS at bedside exam in AM. Speech evaluated 12/17, cleared her for diet. If eating appropriately, can DC IVF. BLE wounds, superficial laceration on right lateral calf [noted to be draining at admission] Patient started on Zosyn and doxycycline on 12/17, continue with same. Follow final results on wound culture and blood culture. Mild elevation of troponin: Troponin elevated at presentation, patient with no chest pain, likely chronic, will trend troponin. Admitting EKG with no acute changes. Generalized weakness/ambulatory dysfunction in the left foot: PT/OT when stable Amiodarone induced thyroiditis and hyperthyroidism: On methimazole and dexamethasone 1 Mg p.o. twice daily. Follows endocrinology. Paroxysmal A. fib: On metoprolol/Cardizem/digoxin/Eliquis. Other chronic medical conditions: Tachybradycardia syndrome [status post pacemaker], constipation [on a stool softener], history of TIA --->> continue with/resume home meds as and when appropriate. DVT prophylaxis: Eliquis Full code 12/17: Updated patient's daughter Marianela over the phone, spent around 17 minutes in [id number] session, answered all her questions to her satisfaction. Admission and Anticipated Discharge Date Admission Date: December 17, 2021 Subjective Patient seen and examined at bedside as a follow-up of altered mental status and mild elevation of troponin. Patient was lying in bed, sleeping, NAD, no new acute events overnight per RN, patient slept well overnight per RN, patient was not being conversive or taking medication per RN hence I was called in the room because of lack of response. Patient appears to be sleeping and when attempted to exam or call her name, she would avoid/withdraw her arms and not allow or participate in further conversation or cooperate with exam. ROS not able. Patient does not appear to be in distress. Physical Exam Physical Exam: GENERAL: Sleepy, reserved. NAD, on RA. Appears old/ill/frail/weak. HEENT: No pallor, no icterus. Pupils equal, round and reactive to light. Oral mucosa moist. NECK: No JVD, no neck masses. HEART: S1 and S2 heard. Regular rate and rhythm. No murmur, no gallop. RESPIRATORY SYSTEM: Normal AP diameter. No accessory muscle use. No wheezing, no crackles. ABDOMEN: Soft, bowel sounds present, nontender, no distention. CENTRAL NERVOUS SYSTEM: No facial droop. Moaning. EXTREMITIES: b/l shins w/ bruises, Rt lateral leg w/ wound/superficial laceration. 1-2+ pitting edema BLE. Results & Data Results & Data ([facility]) Vital Signs (Past 12 Hours) Vital Signs Temp Pulse Pulse Resp BP Pulse Ox O2 Del Method 12/18/21 11:44 36.8 C 69 18 127/77 96 Room Air 11/02/22 09:00 Room Air 12/18/21 07:00 60 12/18/21 07:36 36.9 C 58 L 16 121/72 98 Room Air 12/18/21 03:09 36.4 C L 61 18 132/66 98 Room Air (1) Altered mental status Altered mental status type: delirium Qualified Code(s): R41.0 - Disorientation, unspecified
[2021-12-18] MEDS: DIGOXIN 0.125 MG TAB PO SCH (15:34)
--- NOTE | 2021-12-18 16:06 | CT Scan Report ---
HEAD CT NONCONTRAST CT DOSE: 537.48 mGy.cm HISTORY: Altered mental status. to r/o evolving infarct. TECHNIQUE: Multiaxial CT images of the head were performed without the use of intravenous contrast. A utomated exposure control was utilized for this study. A dose lowering technique was utilized adheri ng to the principles of ALARA. Comparison: Head CT 12/16/2021. Findings: No acute intracranial hemorrhage, midline shift, intracranial mass, hydrocephalus, territor ial ischemia or abnormal extra-axial collection. Encephalomalacia of the inferior left frontal lobe r edemonstrated. Involutional changes with ex vacuo ventriculomegaly. White matter hypodensities sugges t chronic microvascular ischemic disease. No acute calvarial fracture. Prior left frontal temporal cr aniotomy with left supraclinoid aneurysm clipping. The paranasal sinuses, mastoid air cells, and midd le ear cavities are clear. Unremarkable soft tissues. Prior bilateral lens repair. Impression: No significant change compared to the prior study. No acute intracranial abnormality. Chronic and pos toperative changes again noted. ACT 112: Negative or not required by law. Electronically signed by: Elliot Singh M.D. 12/18/2021 4:04 PM
[2021-12-18] MEDS ORDERED: OLANZapine 10 MG/2.1 ML SDV IM PRN (19:41)
[2021-12-19] MEDS: PIPERACILLIN/TAZOBACTAM 3.375 GM in DEXTROSE 5% 100 ML IV SCH ×3 (01:34→18:17)
[2021-12-19] MEDS: MELATONIN 3 MG TAB PO PRN ×2 (03:23→22:33)
[2021-12-19] MEDS: methIMAzole 5 MG TABLET PO SCH ×2 (08:25→22:38)
[2021-12-19] MEDS: dilTIAZem HCL 30 MG TAB PO SCH ×2 (08:26→21:56)
[2021-12-19] MEDS: METOPROLOL SUCC 50MG EXT REL TAB PO SCH (08:26)
[2021-12-19] MEDS: ATORVASTATIN 10 MG TAB PO SCH (08:26)
[2021-12-19] MEDS: APIXABAN 2.5 MG TAB PO SCH (08:26)
[2021-12-19] MEDS: ADVANCED PROBIOTIC 1250 MG CAPSULE PO SCH (08:26)
[2021-12-19] MEDS: dexAMETHasone 1 MG TAB PO SCH ×2 (08:26→21:56)
[2021-12-19] MEDS: MAGNESIUM OXIDE 400 MG TAB PO SCH (08:26)
[2021-12-19] MEDS: POTASSIUM CHLORIDE 10 MEQ TABCR PO SCH (09:52)
[2021-12-19] MEDS: DOXYCYCLINE HYCLATE 100 MG in DEXTROSE 5% 100 ML IV SCH ×2 (09:53→19:55)
[2021-12-19 11:00] LABS: BUN Creatinine Ratio 43.2 (10-20); Calcium 8.9 mg/dl (8.5-10.1); Creatinine Clr Calc Pharmacy 71.7 ml/min; Est GFR (African American) 103.7 ml/min; Est GFR (Non-African American) 89.5 ml/min; Magnesium 2.2 mg/dl (1.7-2.4); Phosphorus 2.7 mg/dl (2.5-4.9); Potassium 4.1 mmol/L (3.5-5.1)
[2021-12-19 11:46] LABS: Hemoglobin 14.7 g/dl (12.0-16.0); Mean Corpuscular Hemoglobin 27.6 pg (25.0-34.0); Mean Corpuscular Hgb Conc 34.2 g/dL (32.0-36.0); Mean Corpuscular Volume 80.8 fL (80.0-100.0); Mean Platelet Volume 9.9 fL (9.4-12.3); Platelet Count 119 K/uL (130-400); RDW Coefficient of Variation 15.9 % (11.5-14.5); RDW Standard Deviation 46.2 fL (36.4-46.3); Red Blood Count 5.32 M/uL (3.93-5.22); White Blood Count 8.78 K/ul (4.8-10.8)
--- NOTE | 2021-12-19 12:56 | Neurology Progress Note ---
Date of Service December 19, 2021 Assessment & Plan (1) Seizure-like activity: (2) Altered mental status: Plan 89-year-old female who has been exhibiting intermittent alteration in behavior and mental status potentially consistent with seizure activity although her recent EEG unremarkable. She has a chronic area of encephalomalacia within the left frontal lobe consistent with her history of remote left supraclinoid aneurysm clipping. She may have a urinary tract infection and was also likely dehydrated at the time of presentation. Although her declining fluctuating mental status may be multifactorial, I am unable to completely exclude subclinical seizure activity in spite of the unrevealing EEG. Continue with antimicrobial therapy and supportive medical care. Would recommend starting an empiric trial of oxcarbazepine given the possibility of subclinical seizure activity. Would start with 150 mg twice daily and uptitrate depending on response and tolerability. Case discussed with Dr. Rubio, hospitalist. Would also recommend lumbar puncture with fluoroscopy in radiology to exclude meningoencephalitis. Would need to hold her Eliquis. Admission and Anticipated Discharge Date Admission Date: December 17, 2021 Subjective Follow-up for encephalopathy Patient's niece at bedside. Patient remains encephalopathic, minimally responsive, essentially nonverbal. Her mental status has fluctuated, however. She has also been alert and oriented but with inability to move the left lower extremity. She has had shaking episodes with associated alteration in awareness as well. There does remain some concern for possible seizure activity as an explanation for her fluctuating declining mental status. An EEG completed yesterday was negative for epileptiform abnormalities. She has a remote history of left supraclinoid aneurysm clipping with an associated area of left frontal encephalomalacia. No evidence of new or evolving process on follow-up CT of the head. Unable to have brain MRI. She does have bilateral lower extremity wounds, has been receiving broad-spectrum antimicrobials. Blood cultures negative. Wound culture positive for Staphylococcus, urine culture revealed gram-positive cocci. Results & Data ([facility]) Vital Signs (Past 12 Hours) Vital Signs Temp Pulse Pulse Resp BP BP Pulse Ox 12/19/21 11:11 36.3 C L 74 18 120/67 98 12/19/21 07:15 36.3 C L 81 16 147/76 H 98 12/19/21 03:57 155/87 H 12/19/21 03:55 36.5 C 77 24 179/91 H 95 12/19/21 02:31 72 O2 Del Method 12/19/21 11:11 Room Air 12/19/21 07:15 Room Air 12/19/21 03:57 12/19/21 03:55 Room Air 12/19/21 02:31 Laboratory Results WBC 8.78, hemoglobin 14.7, hematocrit 43.0, platelet count 119, sodium 139, potassium 4.1, BUN 19, creatinine 0.44, glucose 219, magnesium 2.2 Diagnostic Findings Follow-up CT of the head as above. I independently reviewed the images as well as the radiologist's interpretation of this test. Exam (Neuro) Physical Exam: Patient is unarousable this morning. She withdraws and moans to noxious stimulation. Pupils equal round reactive to light. No gaze preference. No nystagmus. Muscle tone normal throughout. No posturing. No hemiparesis. No abnormal movements observed. Coding Level of Care Code 64265 Subseq Hosp Care Lvl 2 Diagnoses Seizure-like activity R56.9 Altered mental status R41.0 Altered mental status type: delirium (1) Altered mental status Altered mental status type: delirium Qualified Code(s): R41.0 - Disorientation, unspecified
[2021-12-19] MEDS: levETIRAcetam 500 MG in 0.9 % SODIUM CHLORIDE 100 ML IV SCH (13:35)
[2021-12-19] MEDS: ACETAMINOPHEN 325 MG TAB PO PRN (13:36)
[2021-12-19] MEDS: DOCUSATE SODIUM/SENNA 50/8.6MG TAB PO SCH (13:44)
--- NOTE | 2021-12-19 15:38 | Hospitalist Progress Note ---
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 At presentation, patient was mumbling and not answering any questions. 12/17 AM exam, patient was oriented x3 but unable to move her left lower extremity. Sensation was intact BLE. Patient does have a history of recurrent falls. Patient had ? shaky episode before coming to the hospital, concern for postictal Admitting UA negative for UTI but 12/17 U Cx positive for GPC, admitting wbc minimally elevated then has been wnl. Pt has been afebrile. Renal Fxns and electrolytes are normal. Admitting imagings C-spine CT: No acute findings but with severe multilevel degenerative changes within the cervical spine. Head CT: Chronic finding of encephalomalacia of the inferior left frontal lobe. Involutional changes with ex vacuo ventriculomegaly. Pelvic x-ray: No acute findings. CXR: No acute findings. CTAP: No acute findings. F/u CT head 12/18: No new changes compared to prior. 12/18 EEG: fairly normal-appearing awake/drowsy EEG. No epileptiform abnormalities observed. D/w neurology, concern for underlying seizure activity, trial of keppra and continue to monitor. NPO midnight. Will hold eliquis for possible LP tomorrow to r/o infection. Pt w/ periods of mental fluctuation and emotional lability. Psy consulted, ?? depression. Speech evaluated 12/17, cleared her for diet. Pt eating ok during her normal mentation periods BLE wounds, superficial laceration on right lateral calf [noted to be draining at admission] -->> 12/17 Wound Cx Stap Species, follow Sensitivity Patient started on Zosyn and doxycycline on 12/17, continue with same. De- escalate once C/S. Follow final results on wound culture and blood culture. Mild elevation of troponin: Troponin elevated at presentation, patient with no chest pain, likely chronic, will trend troponin. Admitting EKG with no acute changes. Generalized weakness/ambulatory dysfunction in the left foot: PT/OT when stable Amiodarone induced thyroiditis and hyperthyroidism: On methimazole and dexamethasone 1 Mg p.o. twice daily. Follows endocrinology. Paroxysmal A. fib: On metoprolol/Cardizem/digoxin/Eliquis. Other chronic medical conditions: Tachybradycardia syndrome [status post pacemaker], constipation [on a stool softener], history of TIA --->> continue with/resume home meds as and when appropriate. DVT prophylaxis: Eliquis Full code 12/17: Updated patient's daughter Marianela over the phone, spent around 17 minutes in [id number] session, answered all her questions to her satisfaction. Admission and Anticipated Discharge Date Admission Date: December 17, 2021 Subjective Patient seen and examined at bedside as a follow-up of altered mental status and mild elevation of troponin. Patient was lying in bed, was minimally responsive/non verbal NAD, pt noted to have periods of mental fluctuations and emotional labile. Was crying intermittently during my exam but wouldn't converse. d/w RN, pt was fine in AM, ate her breakfast and took her meds. Ovenight per RN, she was agitated requiring mitts/zyprexa. She slept well in AM per RN. ROS was n/a due to pt being non conversive. Physical Exam Physical Exam: GENERAL: Sleepy, reserved, emotional lability. on RA. Appears old/ill/frail/weak. HEENT: No pallor, no icterus. Pupils equal, round and reactive to light. Oral mucosa moist. NECK: No JVD, no neck masses. HEART: S1 and S2 heard. Regular rate and rhythm. No murmur, no gallop. RESPIRATORY SYSTEM: Normal AP diameter. No accessory muscle use. No wheezing, no crackles. ABDOMEN: Soft, bowel sounds present, nontender, no distention. CENTRAL NERVOUS SYSTEM: No facial droop. Moaning. EXTREMITIES: b/l shins w/ bruises, Rt lateral leg w/ wound/superficial laceration. 1-2+ pitting edema BLE. Results & Data Results & Data ([facility]) Vital Signs (Past 12 Hours) Vital Signs Temp Pulse Resp BP BP Pulse Ox O2 Del Method 12/19/21 15:13 36.2 C L 81 18 113/73 96 Room Air 12/19/21 08:25 Room Air 12/19/21 11:11 36.3 C L 74 18 120/67 98 Room Air 12/19/21 07:15 36.3 C L 81 16 147/76 H 98 Room Air 12/19/21 03:57 155/87 H 12/19/21 03:55 36.5 C 77 24 179/91 H 95 Room Air (1) Altered mental status Altered mental status type: delirium Qualified Code(s): R41.0 - Disorientation, unspecified
[2021-12-19] MEDS: DIGOXIN 0.125 MG TAB PO SCH (16:40)
--- NOTE | 2021-12-19 17:05 | Psychiatric Consultation ---
Date of Consultation December 19, 2021 Impression / Recommendations Impression Diagnostically suspect events last night may have been due to hyperactive delirium to which she is especially vulnerable given baseline encephalomalacia and especially likely if she has been experiencing seizures. Unclear if history of dexamethasone and alprazolam use is new but both can also lead to delirium especially in someone of her age. Encouragingly this afternoon she was fully oriented and mood is stable. Seems she gets depressed at times in context of pain consistent with adjustment disorder. For now would avoid scheduling an antipsychotic for delirium but if hyperactivity/agitation resumes and multiple doses of IM olanzapine are required could consider scheduling seroquel 25mg qhs with caution for potential for lowering seizure threshold and black box warning for all cause mortality if dementia present. (1) Acute alteration in mental status: Plan -Agree with olanzapine 2.5mg IM prn for acute agitation (DO NOT exceed 10mg per 24 hours, check EKG if IM dose required, NEVER co-administer with IM or IV benzodiazepines). -If multiple IM doses required could consider seroquel 25mg qhs po scheduled but caution for impact on lowering seizure threshold -Moving forward would limit/avoid use of Xanax and dexamethasone if possible as well as trying to minimize other potential deliriogenic medications such as opioids, anticholinergics and benzos Psych History Identifying Data 89 yo woman with hx of encephalomalacia of left frontal lobe admitted medically for worsening confusion, UTI and possible seizure activity. Psychiatry consulted after agitated behaviors last night for recommendations. Chief Complaint "I had horrible pain, it's better today". History of Present Illness Geni was admitted for worsening confusion. She was seen by neurology who are concerned about possible seizure activity leading to changes in behavior. Last night she was confused, not following nursing directions, not responding to verbal prompts to engage with care and became acutely agitated aggressively scratching her arms to the point of requiring wound care intervention, hitting her head, and pulling off cardiac and IV lines. Today she is fully oriented to person, place, city, month and year. She recalls "itching" her arms but cannot recall the other details of her behavior last night. Today reports her mood is stable and discusses activities she enjoys doing at home and that her is very supportive. Unclear if she has been residing at home recently or at [facility] per H&P documentation. She states her mood is worse when she's in pain but feels it is much better controlled today and that makes her mood much better. Does still have some hip pain. She denies SI nor any history of inpatient psychiatric admissions nor any history of prior suicide attempts. Past Psychiatric History History of Previous Suicide Attempt: No Allergies Allergy/AdvReac Type Severity Reaction Status Date / Time adhesive Allergy Intermediate RASH, Verified 10/31/21 10:03 REDDNESS AT SITE codeine Allergy Intermediate RASH, Verified 10/31/21 10:03 SEVERE ITCHING metronidazole Allergy Intermediate SEVERE Verified 10/31/21 10:03 YEAST/VAGINAL INFX morphine AdvReac Severe IRREGULAR Verified 10/31/21 10:03 HEART RATE, EXTREME SEDATION propoxyphene AdvReac Severe A-FIB Verified 10/31/21 10:03 Home Medications Medication Instructions Recorded Confirmed Type digoxin 125 mcg (0.125 mg) tablet 125 mcg PO DAILY@1600 #30 tabs 09/24/21 12/16/21 Rx (Digitek) Lactobacillus acidophilus 10 100 mg PO DAILY #7 caps 11/21/21 12/16/21 Rx billion cell capsule (Probiotic) alprazolam 0.25 mg tablet 0.25 mg PO HS PRN anxiety #15 tabs 11/21/21 12/16/21 Rx apixaban 2.5 mg tablet (Eliquis) 2.5 mg PO BID #60 tabs 11/21/21 12/16/21 Rx atorvastatin 10 mg tablet 10 mg PO DAILY #30 tabs 11/21/21 12/16/21 Rx diltiazem HCl 30 mg tablet 30 mg PO BID #60 tabs 11/21/21 12/16/21 Rx docusate sodium 100 mg capsule 100 mg PO HS PRN Constipation #30 11/21/21 12/16/21 Rx (Stool Softener) caps furosemide 20 mg tablet (Lasix) 20 mg PO 2XWK PRN sweling and 11/21/21 12/16/21 Rx weight gain #30 tabs hydroxyzine HCl 10 mg tablet 10 mg PO Q6 PRN anxiety #20 tabs 11/21/21 12/16/21 Rx magnesium hydroxide 400 mg/5 mL 15 ml PO DAILY PRN Constipation 11/21/21 12/16/21 Rx oral suspension (Milk of Magnesia) #30 mL magnesium oxide 400 mg PO QAM #30 tabs 11/21/21 12/16/21 Rx melatonin 10 mg tablet 10 mg PO HS PRN Sleep #30 tabs 11/21/21 12/16/21 Rx omega 4-whf-bne-fish oil 1,200 mg 2 cap PO 3XWK #24 caps 11/21/21 12/16/21 Rx (144 mg-216 mg) capsule (Fish Oil) polyethylene glycol 3350 17 gram 17 g PO DAILY PRN constipation #14 11/21/21 1 Rx oral powder packet (Miralax) ea potassium chloride 10 mEq 10 meq PO DAILY #30 tabs 11/21/21 12/16/21 Rx tablet,extended release(part/cryst) sennosides 8.6 mg-docusate sodium 1 tab PO QAM #30 tabs 11/21/21 12/16/21 Rx 50 mg tablet (Senokot-S) dexamethasone 1 mg tablet 1 mg PO BID 30 days #60 tabs 12/02/21 12/16/21 Rx methimazole 10 mg tablet 10 mg PO BID #60 tabs 12/02/21 12/16/21 Rx acetaminophen 325 mg tablet 650 mg PO Q4 PRN Pain 12/16/21 12/16/21 History metoprolol succinate 25 mg 25 mg PO QAM 12/16/21 12/16/21 History tablet,extended release 24 hr metoprolol succinate 50 mg 50 mg PO QAM 12/16/21 12/16/21 History tablet,extended release 24 hr Personal History Marital Status: Number Of Children: has daughter who lives in [place] Beliefs That Will Affect Care: None Patient History Medical History Aneurysm brain> surgery to repair at [facility] > 1988 Per records "History of cerebral carotid artery aneurysm clipping 1988 " COVID Dysarthria GERD (gastroesophageal reflux disease) Heart failure follows Dr. Bay History of lung cancer 1993- s/p RUL lung resection History of TIA (transient ischemic attack) History of trigger finger multiple to both hands Hyperlipidemia Hypertension Longstanding LBBB (left bundle branch block) Chronic per cardio records NSTEMI (non-ST elevated myocardial infarction) Pacemaker Placed Mar 16, 2020> [facility] > follows Dr. 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 Phu LACY (shortness of breath) TIA (transient ischemic attack) no further issues > 2018 > doesn't follow neuro Surgical History H/O section x1 H/O hemorrhoidectomy H/O ultrasound guided needle biopsy of lung History of cardiac cath 2010 - no obstructive CAD History of carpal tunnel release bilat History of cataract surgery bilat History of colon resection 8 inches > 2001 History of colonoscopy History of hysterectomy History of lung surgery 1993 > RUL > due to cancer > no chemo/radiation History of right shoulder replacement reverse History of spinal surgery Hx of cholecystectomy Hx of exploratory thoracotomy Family History Aunt Diabetes Other Abdominal aortic aneurysm Stroke Social History Smoking Status: Unknown if ever smoked Tobacco Type: Cigarettes Second Hand Exposure: No; Hx Alcohol Use: Yes Alcohol type: wine Hx Substance Use: No Preferred Language: Maori Communication Ability: Effective Visual Impairment: Limited Hearing Ability: Hard of Hearing Gravity Prospector Required: No Beliefs That Will Affect Care: None marital status: Current Living Situation: Rehab Current Living Situation Comment: needs placement How many Children do You have: 2 Feels Safe at Home: Yes Assistive Devices: Walker and Wheelchair Physical Exam Psychiatric: Orientation: alert and oriented x 3 Apperance: + disheveled Eye Contact: + fair eye contact Motor Behavior: no abnormal motor movements Speech: + abnormal rate/rhythm/volume of speech (brief ) Affect: + constricted affect Mood: no depressed mood and no anxious mood Thought Process: goal directed thought process and + looseness of associations Thought Content: reality based without delusions Suicidal Thoughts: denies suicidal thoughts Homicidal Thoughts: denies homicidal thoughts Hallucinations: no auditory hallucinations and no visual hallucinations Cognition: language grossly intact; + recent memory not intact and + attention not intact Insight: + limited insight Judgement: + limited judgement Vital Signs (Past 24 Hours): Last Vital Signs Temp 36.2 C L 12/19/21 15:13 Pulse 81 12/19/21 16:40 Resp 18 12/19/21 15:13 BP 113/73 12/19/21 15:13 Pulse Ox 96 12/19/21 15:13 O2 Del Method 12/19/21 15:13 Review of Systems All systems reviewed & are unremarkable except as noted in HPI & below Results & Data (PS[facility]) Medications Administered Acetaminophen (Acetaminophen 325 Mg Tab) 650 mg PO Q4H PRN PRN Reason: Pain or Fever Stop: 01/16/22 06:31 Last Admin: 12/19/21 13:36 Dose: 650 mg Documented By: Admin: 12/18/21 15:04 Dose: 650 mg Documented By: Admin: 12/18/21 04:27 Dose: 650 mg Documented By: Admin: 12/17/21 21:28 Dose: 650 mg Documented By: CIARA Apixaban (Apixaban 2.5 Mg Tab) 2.5 mg PO BID BERNARDINO Stop: 01/16/22 08:59 Last Admin: 12/19/21 08:26 Dose: 2.5 mg Documented By: Admin: 12/18/21 20:53 Dose: 2.5 mg Documented By: Admin: 12/18/21 10:57 Dose: 2.5 mg Documented By: Admin: 12/17/21 21:26 Dose: Not Given Documented By: Admin: 12/17/21 11:45 Dose: 2.5 mg Documented By: VONDA Atorvastatin Calcium (Atorvastatin 10 Mg Tab) 10 mg PO DAILY BERNARDINO Stop: 01/16/22 08:59 Last Admin: 12/19/21 08:26 Dose: 10 mg Documented By: Admin: 12/18/21 10:57 Dose: 10 mg Documented By: Admin: 12/17/21 11:44 Dose: 10 mg Documented By: VONDA Dexamethasone (Dexamethasone 1 Mg Tab) 1 mg PO BID BERNARDINO Stop: 01/16/22 08:59 Last Admin: 12/19/21 08:26 Dose: 1 mg Documented By: Admin: 12/18/21 20:53 Dose: 1 mg Documented By: Admin: 12/18/21 10:57 Dose: 1 mg Documented By: Admin: 12/17/21 21:26 Dose: Not Given Documented By: Admin: 12/17/21 11:44 Dose: 1 mg Documented By: [place] Digoxin (Digoxin 0.125 Mg Tab) 0.125 mg PO DAILY@1600 BERNARDINO Stop: 01/16/22 15:59 Last Admin: 12/19/21 16:40 Dose: 0.125 mg Documented By: Admin: 12/18/21 15:34 Dose: 0.125 mg Documented By: Admin: 12/17/21 16:32 Dose: 0.125 mg Documented By: DEDE Diltiazem HCl (Diltiazem Hcl 30 Mg Tab) 30 mg PO BID BERNARDINO Stop: 01/16/22 08:59 Last Admin: 12/19/21 08:26 Dose: 30 mg Documented By: Admin: 12/18/21 20:52 Dose: 30 mg Documented By: Admin: 12/18/21 10:57 Dose: 30 mg Documented By: Admin: 12/17/21 21:26 Dose: Not Given Documented By: Admin: 12/17/21 11:46 Dose: 30 mg Documented By: VONDA Hydroxyzine HCl (Hydroxyzine Hcl 10 Mg Tab) 10 mg PO Q6 PRN PRN Reason: anxiety Stop: 01/16/22 06:31 Last Admin: 12/18/21 03:32 Dose: 10 mg Documented By: CIARA Piperacillin Sod/Tazobactam (Sod 3.375 gm/ Dextrose) 115 mls @ 28.75 mls/hr IV Q8H [facility]; Protocol Stop: 12/24/21 15:59 Last Infusion: 12/19/21 15:57 Dose: 0 mls/hr Documented By: Admin: 12/19/21 11:57 Dose: 28.8 mls/hr Documented By: Admin: 12/19/21 01:34 Dose: Not Given Documented By: Infusion: 12/18/21 19:51 Dose: 0 mls/hr Documented By: Admin: 12/18/21 15:34 Dose: 28.8 mls/hr Documented By: Infusion: 12/18/21 14:52 Dose: 0 mls/hr Documented By: Admin: 12/18/21 10:53 Dose: 28.8 mls/hr Documented By: Infusion: 12/18/21 08:39 Dose: 0 mls/hr Documented By: Admin: 12/18/21 01:26 Dose: 28.8 mls/hr Documented By: Infusion: 12/17/21 20:31 Dose: 0 mls/hr Documented By: Admin: 12/17/21 16:31 Dose: 28.8 mls/hr Documented By: DEDE Doxycycline Hyclate 100 mg/ (Dextrose) 110 mls @ 50 mls/hr IV Q12H BERNARDINO Stop: 12/24/21 07:59 Last Infusion: 12/19/21 12:02 Dose: 0 mls/hr Documented By: Admin: 12/19/21 09:53 Dose: 50 mls/hr Documented By: Infusion: 12/18/21 22:06 Dose: 0 mls/hr Documented By: Admin: 12/18/21 19:33 Dose: 50 mls/hr Documented By: Infusion: 12/18/21 11:11 Dose: 0 mls/hr Documented By: Admin: 12/18/21 08:59 Dose: 50 mls/hr Documented By: Admin: 12/17/21 21:28 Dose: Not Given Documented By: Infusion: 12/17/21 12:31 Dose: 0 mls/hr Documented By: Admin: 12/17/21 09:39 Dose: 50 mls/hr Documented By: VONDA Levetiracetam 500 mg/ Sodium (Chloride) 105 mls @ 420 mls/hr IV Q12H BERNARDINO Stop: 01/18/22 13:14 Last Infusion: 12/19/21 13:51 Dose: 0 mls/hr Documented By: Admin: 12/19/21 13:35 Dose: 420 mls/hr Documented By: ARAVIND Lactobacillus Acidophilus (Advanced Probiotic 1250 Mg Capsule) 2 cap PO DAILY BERNARDINO Stop: 01/16/22 08:59 Last Admin: 12/19/21 08:26 Dose: 2 cap Documented By: Admin: 12/18/21 10:56 Dose: 2 cap Documented By: Admin: 12/17/21 11:44 Dose: 2 cap Documented By: VONDA Magnesium Oxide (Magnesium Oxide 400 Mg Tab) 400 mg PO QAM BERNARDINO Stop: 01/16/22 08:59 Last Admin: 12/19/21 08:26 Dose: 400 mg Documented By: Admin: 12/18/21 10:57 Dose: 400 mg Documented By: Admin: 12/17/21 11:45 Dose: 400 mg Documented By: VONDA Melatonin (Melatonin 3 Mg Tab) 9 mg PO HS PRN PRN Reason: Sleep Stop: 01/16/22 07:07 Last Admin: 12/19/21 03:23 Dose: 9 mg Documented By: Admin: 12/17/21 21:24 Dose: 9 mg Documented By: CIARA Methimazole (Methimazole 5 Mg Tablet) 10 mg PO BID BERNARDINO Stop: 01/16/22 08:59 Last Admin: 12/19/21 08:25 Dose: 10 mg Documented By: Admin: 12/18/21 20:54 Dose: 10 mg Documented By: Admin: 12/18/21 10:57 Dose: 10 mg Documented By: Admin: 12/17/21 21:27 Dose: Not Given Documented By: Admin: 12/17/21 11:44 Dose: 10 mg Documented By: VONDA Metoprolol Succinate (Metoprolol Succ 50mg Ext Rel Tab) 75 mg PO QAM BERNARDINO Stop: 01/16/22 08:59 Last Admin: 12/19/21 08:26 Dose: 75 mg Documented By: Admin: 12/18/21 10:56 Dose: 75 mg Documented By: Admin: 12/17/21 11:45 Dose: 75 mg Documented By: VONDA Olanzapine (Olanzapine 10 Mg/2.1 Ml Sdv) 2.5 mg IM Q4H PRN PRN Reason: Anxiety/Agitation Stop: 01/17/22 19:40 Last Admin: 12/18/21 19:56 Dose: 2.5 mg Documented By: NOEMI Polyethylene Glycol (Polyethylene (Miralax) 17 Gm Pack) 17 gm PO DAILY PRN PRN Reason: constipation Stop: 01/16/22 06:31 Last Admin: 12/17/21 20:53 Dose: 17 gm Documented By: CIARA Potassium Chloride (Potassium Chloride 10 Meq Tabcr) 10 meq PO DAILY BERNARDION Stop: 01/16/22 08:59 Last Admin: 12/19/21 09:52 Dose: 10 meq Documented By: Admin: 12/18/21 10:57 Dose: 10 meq Documented By: Admin: 12/17/21 11:45 Dose: 10 meq Documented By: VONDA Senna/Docusate Sodium (Docusate Sodium/Senna 50/8.6mg Tab) 1 tab PO QAM BERNARDINO Stop: 01/16/22 08:59 Last Admin: 12/19/21 13:44 Dose: Not Given Documented By: Admin: 12/18/21 10:57 Dose: 1 tab Documented By: Admin: 12/17/21 11:45 Dose: 1 tab Documented By: VONDA Coding Level of Care Code 69090 Inpt Consult Level 3 Diagnoses Acute alteration in mental status R41.82
[2021-12-19] MEDS: POLYETHYLENE (MIRALAX) 17 GM PACK PO PRN (22:33)
[2021-12-20] MEDS: levETIRAcetam 500 MG in 0.9 % SODIUM CHLORIDE 100 ML IV SCH ×2 (00:11→12:41)
[2021-12-20] MEDS: PIPERACILLIN/TAZOBACTAM 3.375 GM in DEXTROSE 5% 100 ML IV SCH ×2 (00:31→09:14)
[2021-12-20 07:21] LABS: Hematocrit (blood only) 39.2 % (34.1-44.9); Hemoglobin 13.1 g/dl (12.0-16.0); Mean Corpuscular Hemoglobin 27.4 pg (25.0-34.0); Mean Corpuscular Hgb Conc 33.4 g/dL (32.0-36.0); Mean Platelet Volume 10.2 fL (9.4-12.3); Platelet Count 116 K/uL (130-400); RDW Coefficient of Variation 15.9 % (11.5-14.5); RDW Standard Deviation 47.2 fL (36.4-46.3); Red Blood Count 4.78 M/uL (3.93-5.22); White Blood Count 7.82 K/ul (4.8-10.8)
[2021-12-20 07:39] LABS: BUN Creatinine Ratio 41.2 (10-20); Calcium 8.3 mg/dl (8.5-10.1); Creatinine Clr Calc Pharmacy 61.9 ml/min; Est GFR (African American) 98.8 ml/min; Est GFR (Non-African American) 85.3 ml/min; Potassium 3.9 mmol/L (3.5-5.1)
[2021-12-20] MEDS: methIMAzole 5 MG TABLET PO SCH ×2 (08:31→21:37)
[2021-12-20] MEDS: ADVANCED PROBIOTIC 1250 MG CAPSULE PO SCH (08:32)
[2021-12-20] MEDS: dexAMETHasone 1 MG TAB PO SCH ×2 (08:32→21:36)
[2021-12-20] MEDS: MAGNESIUM OXIDE 400 MG TAB PO SCH (08:32)
[2021-12-20] MEDS: ATORVASTATIN 10 MG TAB PO SCH (08:32)
[2021-12-20] MEDS: METOPROLOL SUCC 50MG EXT REL TAB PO SCH (08:32)
[2021-12-20] MEDS: dilTIAZem HCL 30 MG TAB PO SCH ×2 (08:32→21:37)
[2021-12-20] MEDS: POTASSIUM CHLORIDE 10 MEQ TABCR PO SCH (08:38)
[2021-12-20] MEDS: DOCUSATE SODIUM/SENNA 50/8.6MG TAB PO SCH (08:38)
[2021-12-20] MEDS: DOXYCYCLINE HYCLATE 100 MG in DEXTROSE 5% 100 ML IV SCH (08:40)
[2021-12-20] MEDS ORDERED: ceFAZolin 2000MG 2,000 MG/15 ML SYR IV SCH (09:00)
--- NOTE | 2021-12-20 12:38 | Palliative Care Consultation ---
Date of Consultation December 20, 2021 Assessment & Plan (1) Altered mental status: Variable. She was apparently at baseline last night per her daughter. Etiology uncertain. She is being followed by neurology. Potential lumbar puncture. Eliquis on hold since yesterday morning. Altered mental status type: delirium Qualified Code(s): R41.0 - Disorientation, unspecified (2) Generalized weakness: Her daughter is anxious to understand what is causing her confusion so that she could continue physical therapy to get a little stronger. (3) Palliative care encounter: I talked with Geni about my role as palliative care physician. Her has also been seen by palliative care on previous admissions and has decided that he wants to focus on comfort and symptom management moving forward. He will be moving to [facility] next week. I asked Geni if she had any worries or concerns and she told me that she did not. I talked about her care and possible upcoming procedure. I asked her how she felt about that and her reply was "What does it matter, if I say no, you'll do it anyhow". I assured her that we would not do a procedure that was against her wishes and that I was interested in understanding what her wishes were. She told me that whatever her decides is ok with her. I spoke with her daughter, Marianela, and , Wilfredo, on the phone for 32 minutes. We talked about the waxing and waning nature of Geni's mental status. I asked Marianela what she thought her mother would say about her care if she were thinking clearly. Marianela recognizes that Geni's rehab potential is limited but very much wants to try and help her if possible. She is weighing treatments and procedures based on the burden to Geni and potential benefit. She asked about what would be involved with lumbar puncture and whether it would be uncomfortable or risky for her. We discussed what would happen during the procedure and the fact that Geni would need to remain in a curled up position for the duration of the procedure. Marianela and Ed are concerned that she would not be able to do that which I think is a reasonable concern. They do want to try and are hopeful that her mental status may be more clear at that time. We also discussed the possibility that this may not give us a definitive answer to what is causing her confusion. They are realistic that Geni is frail and confirm that her code status is DNR. Unlike her 's choice for his care, they feel that it would be important to understand the cause of her mental status change and treat if treatable. History of Present Illness Reason for Consultation: goals of care Requesting Physician: Dr. Rubio Attending Physician: Julio Cesar Rubio MD History of Present Illness 89 yo lady with extensive medical history including HFpEF, paroxysmal afibe, aortic stenosis and amiodarone induce thyrotoxicosis and previous Covid-19. She has had progressive generalized weakness and ambulatory dysfunction, to the point that she is now wheel chair bound. She has been living at [facility] but requires higher level of care and will be moving to SNF at [facility]. She was hospitalized last month for UTI and encephalopathy. She presented for this admission with increased confusion. She is being treated for UTI and Staph infection of bilateral lower extremity wounds. Per her daughter's description there was concern for seizure activity and she is being followed by neurology. EEG was negative for epileptiform abnormalities and she is on a trial of keppra. A lumbar puncture is planned. Her daughter tells me that last night, Geni's mental status was clear and at baseline. Today, she is awake and alert. She is irritable and very suspicious. She does not cooperate with questions about orientation or mental status. She did not answer review of system questions. "Why should I bother". Allergies Allergy/AdvReac Type Severity Reaction Status Date / Time adhesive Allergy Intermediate RASH, Verified 10/31/21 10:03 REDDNESS AT SITE codeine Allergy Intermediate RASH, Verified 10/31/21 10:03 SEVERE ITCHING metronidazole Allergy Intermediate SEVERE Verified 10/31/21 10:03 YEAST/VAGINAL INFX morphine AdvReac Severe IRREGULAR Verified 10/31/21 10:03 HEART RATE, EXTREME SEDATION propoxyphene AdvReac Severe A-FIB Verified 10/31/21 10:03 Home Medications Medication Instructions Recorded Confirmed Type digoxin 125 mcg (0.125 mg) tablet 125 mcg PO DAILY@1600 #30 tabs 09/24/21 12/16/21 Rx (Digitek) Lactobacillus acidophilus 10 100 mg PO DAILY #7 caps 11/21/21 12/16/21 Rx billion cell capsule (Probiotic) alprazolam 0.25 mg tablet 0.25 mg PO HS PRN anxiety #15 tabs 11/21/21 12/16/21 Rx apixaban 2.5 mg tablet (Eliquis) 2.5 mg PO BID #60 tabs 11/21/21 12/16/21 Rx atorvastatin 10 mg tablet 10 mg PO DAILY #30 tabs 11/21/21 12/16/21 Rx diltiazem HCl 30 mg tablet 30 mg PO BID #60 tabs 11/21/21 12/16/21 Rx docusate sodium 100 mg capsule 100 mg PO HS PRN Constipation #30 11/21/21 12/16/21 Rx (Stool Softener) caps furosemide 20 mg tablet (Lasix) 20 mg PO 2XWK PRN sweling and 11/21/21 12/16/21 Rx weight gain #30 tabs hydroxyzine HCl 10 mg tablet 10 mg PO Q6 PRN anxiety #20 tabs 11/21/21 12/16/21 Rx magnesium hydroxide 400 mg/5 mL 15 ml PO DAILY PRN Constipation 11/21/21 12/16/21 Rx oral suspension (Milk of Magnesia) #30 mL magnesium oxide 400 mg PO QAM #30 tabs 11/21/21 12/16/21 Rx melatonin 10 mg tablet 10 mg PO HS PRN Sleep #30 tabs 11/21/21 12/16/21 Rx omega 8-nbp-dks-fish oil 1,200 mg 2 cap PO 3XWK #24 caps 11/21/21 12/16/21 Rx (144 mg-216 mg) capsule (Fish Oil) polyethylene glycol 3350 17 gram 17 g PO DAILY PRN constipation #14 11/21/21 12/16/21 Rx oral powder packet (Miralax) ea potassium chloride 10 mEq 10 meq PO DAILY #30 tabs 11/21/21 12/16/21 Rx tablet,extended release(part/cryst) sennosides 8.6 mg-docusate sodium 1 tab PO QAM #30 tabs 11/21/21 12/16/21 Rx 50 mg tablet (Senokot-S) dexamethasone 1 mg tablet 1 mg PO BID 30 days #60 tabs 12/02/21 12/16/21 Rx methimazole 10 mg tablet 10 mg PO BID #60 tabs 12/02/21 12/16/21 Rx acetaminophen 325 mg tablet 650 mg PO Q4 PRN Pain 12/16/21 12/16/21 History metoprolol succinate 25 mg 25 mg PO QAM 12/16/21 12/16/21 History tablet,extended release 24 hr metoprolol succinate 50 mg 50 mg PO QAM 12/16/21 12/16/21 History tablet,extended release 24 hr Patient History Medical History 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 Bay History of lung cancer 1993- s/p RUL lung resection History of TIA (transient ischemic attack) History of trigger finger multiple to both hands Hyperlipidemia Hypertension Longstanding LBBB (left bundle branch block) Chronic per cardio records NSTEMI (non-ST elevated myocardial infarction) Pacemaker Placed Mar 16, 2020> [facility] > follows Dr. 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 Bay SOB (shortness of breath) TIA (transient ischemic attack) no further issues > 2017 > doesn't follow neuro Surgical History H/O section x1 H/O hemorrhoidectomy H/O ultrasound guided needle biopsy of lung History of cardiac cath 2010 - no obstructive CAD History of carpal tunnel release bilat History of cataract surgery bilat History of colon resection 8 inches > 2001 History of colonoscopy History of hysterectomy History of lung surgery 1993 > RUL > due to cancer > no chemo/radiation History of right shoulder replacement reverse History of spinal surgery Hx of cholecystectomy Hx of exploratory thoracotomy Family History Aunt Diabetes Other Abdominal aortic aneurysm Stroke Social History Smoking Status: Unknown if ever smoked Tobacco Type: Cigarettes Second Hand Exposure: No; Hx Alcohol Use: Yes Alcohol type: wine Hx Substance Use: No Preferred Language: Grenadian Communication Ability: Effective Visual Impairment: Limited Hearing Ability: Hard of Hearing Unit Nurse Required: No Beliefs That Will Affect Care: Yazidism marital status: Current Living Situation: Rehab Current Living Situation Comment: needs placement How many Children do You have: 2 Feels Safe at Home: Yes Assistive Devices: Walker and Wheelchair Review of Systems Review of Systems: Unobtainable due to mental health condition Physical Exam Constitutional: + altered mental status ENMT: Mouth: oral mucous membranes not dry Respiratory: normal respiratory effort; no labored breathing Cardiovascular: Rate/Rhythm: regular rate and regular rhythm Musculoskeletal: upper and lower extremity dressings, edema Neurologic: Speech / Cognition: + abnormal cognition Psychiatric: Affect: + irritable affect Results & Data ([facility]) Vital Signs (Past 12 Hours) Vital Signs Temp Pulse Pulse Resp BP Pulse Ox O2 Del Method 12/20/21 10:56 97.0 F L 89 18 109/73 98 Room Air 12/20/21 07:31 96.1 F L 64 18 119/70 98 Room Air 12/20/21 07:11 71 12/20/21 03:03 70 16 117/72 96 Room Air PG Care Time/CCT Total # of Minutes Spent Total Time Spent: 89 Total Time Spent with Patient: Total time spent is greater than 50% in coordination of care (as documented) at patient's floor/unit and/or counseling patient: goals of care, family education and support Coding Level of Care Code 98235 Initial Inpt Care Lvl 3 Diagnoses Altered mental status R41.0 Altered mental status type: delirium Generalized weakness R53.1 Palliative care encounter Z51.5
[2021-12-20] MEDS: ACETAMINOPHEN 325 MG TAB PO PRN (13:45)
[2021-12-20] MEDS ORDERED: VANCOMYCIN CONSULT ACTIVE PRN (14:53)
[2021-12-20] MEDS ORDERED: VANCOMYCIN HCL 1,250 MG in SODIUM CHLORIDE 0.9% 250 ML IV STA (14:57)
--- NOTE | 2021-12-20 15:04 | Hospitalist Progress Note ---
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 She is being managed for the following: Altered mental status: unclear etiology BLE wounds Possible MDR UTI/ likely complicated UTI ?? 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 At presentation, patient was mumbling and not answering any questions. 11 AM exam, patient was oriented x3 but unable to move her left lower extremity. Sensation was intact BLE. Patient does have a history of recurrent falls. Patient had ? shaky episode before coming to the hospital, concern for postictal Admitting UA negative for UTI but 12/17 U Cx positive for MDR E. Faecium, admitting wbc minimally elevated then has been wnl. Pt has been afebrile. Renal Fxns and electrolytes are normal. Admitting imagings C-spine CT: No acute findings but with severe multilevel degenerative changes within the cervical spine. Head CT: Chronic finding of encephalomalacia of the inferior left frontal lobe. Involutional changes with ex vacuo ventriculomegaly. Pelvic x-ray: No acute findings. CXR: No acute findings. CTAP: No acute findings. F/u CT head 12/18: No new changes compared to prior. 12/18 EEG: fairly normal-appearing awake/drowsy EEG. No epileptiform abnormalities observed. D/w neurology, concern for underlying seizure activity, trial of keppra and continue to monitor. d/w radiology for possible LP today, they will eval her and see if they can do it today. Pt w/ periods of mental fluctuation and emotional lability. Psy evaluated 12/19, appreciate recs. Speech evaluated 12/17, cleared her for diet. Pt eating ok during her normal mentation periods BLE wounds, superficial laceration on right lateral calf [noted to be draining at admission] -->> 12/17 Wound Cx MSSA. Patient started on Zosyn and doxycycline on 12/17 --> MDR E faecium in U Cx noted on 12/20 --> Zosyn DC'd 12/20, Vanc started 12/20, ID consult. Follow final results on blood culture. Palliative eval: appreciate palliative care input. Mild elevation of troponin: Troponin elevated at presentation, patient with no chest pain, likely chronic, will trend troponin. Admitting EKG with no acute changes. Generalized weakness/ambulatory dysfunction in the left foot: PT/OT when stable Amiodarone induced thyroiditis and hyperthyroidism: On methimazole and dexamethasone 1 Mg p.o. twice daily. Follows endocrinology. Paroxysmal A. fib: On metoprolol/Cardizem/digoxin/Eliquis. Other chronic medical conditions: Tachybradycardia syndrome [status post pacemaker], constipation [on a stool softener], history of TIA --->> continue with/resume home meds as and when appropriate. DVT prophylaxis: Eliquis on hold for possible LP. Full code 12/17: Updated patient's daughter Marianela over the phone, spent around 17 minutes in [id number] session, answered all her questions to her satisfaction. 12/20: Updated pt'd dtr Marianela, approximately 15-17 minutes spent in QnA, answered all questions to her satisfaction. Admission and Anticipated Discharge Date Admission Date: December 17, 2021 Subjective Patient seen and examined at bedside as a follow-up of altered mental status and mild elevation of troponin. Pt was lying in bed, on RA, NAD, alert/awake/oriented, looks weak/ill/frail, denies headache/dizziness/chest pain/sore throat/belly pain, reports weakness and lack of hunger. Reports moving bowels ok. Physical Exam Physical Exam: GENERAL: Alert and Awake. on RA. Appears old/ill/frail/weak. HEENT: No pallor, no icterus. Pupils equal, round and reactive to light. Oral mucosa moist. NECK: No JVD, no neck masses. HEART: S1 and S2 heard. Regular rate and rhythm. No murmur, no gallop. RESPIRATORY SYSTEM: Normal AP diameter. No accessory muscle use. No wheezing, no crackles. ABDOMEN: Soft, bowel sounds present, nontender, no distention. CENTRAL NERVOUS SYSTEM: No facial droop. Moaning. EXTREMITIES: b/l shins w/ bruises, Rt lateral leg w/ wound/superficial laceration. 1-2+ pitting b/l ankle edema. Results & Data Results & Data ([facility]) Vital Signs (Past 12 Hours) Vital Signs Temp Pulse Pulse Resp BP Pulse Ox O2 Del Method 12/20/21 10:56 36.1 C L 89 18 109/73 98 Room Air 12/20/21 07:31 35.6 C L 64 18 119/70 98 Room Air 12/20/21 07:11 71 12/20/21 03:03 70 16 117/72 96 Room Air (1) Altered mental status Altered mental status type: delirium Qualified Code(s): R41.0 - Disorientation, unspecified
--- NOTE | 2021-12-20 15:21 | Pharmacy Report ---
Pharmacy PK ABX Note - Date of Service December 20, 2021 - Assessment and Plan Assessment * 89 year old F receiving vancomycin for treatment of MSSA cellulitis plus possible E. faecium UTI (not VRE) vs. asymptomatic bacteriuria. Risk/benefit of cefazolin monotherapy (for MSSA only) vs. vancomycin monotherapy (for coverage for both) discussed with Dr. Rubio - favors treatment for both at this time given unexplained etiology for confusion despite extensive work-up * SCr stable and at/near baseline Plan Vancomycin * 1250 mg IV every 24 hours * Regimen is predicted to achieve target AUC/KATINA of 400-600 mg/L.hr * Random level ordered for 12/22 Pharmacy will continue to follow and will adjust dose/frequency as necessary. Thank you. Pharmacy has transitioned to AUC monitoring for vancomycin. AUC/KATINA is the preferred PK/PD target and is associated with decreased risk of nephrotoxicity compared to traditional trough targets.
[2021-12-20] MEDS: DIGOXIN 0.125 MG TAB PO SCH (16:25)
--- NOTE | 2021-12-20 16:26 | Fluoroscopy Report ---
FLUOROSCOPICALLY GUIDED LUMBAR PUNCTURE CLINICAL HISTORY: Confusion. Evaluate for infection. FLUOROSCOPY TIME: 0.7 minutes NUMBER OF FLUOROSCOPIC IMAGES: 1 PROCEDURE: The procedure, risks and benefits were discussed with the patient and her given p atient's altered mental status. Discussed risks included the risk of of spinal headache, bleeding and infection. The patient's agreed to the procedure and informed written consent was obtained. The procedure was performed by Dr. Troy following a timeout. The left L4-L5 interlaminar space w as targeted. Skin overlying the space was prepped and draped in sterile fashion and local anesthesia was achieved with 1% lidocaine. Under intermittent fluoroscopic guidance, a 20-gauge 3 1/2 inch spina l needle was directed into the thecal sac with immediate return of clear cerebrospinal fluid. 8 cc of CSF was collected in 4 vials and sent to the laboratory as ordered. The needle was removed. Patient tolerated the procedure well and no immediate complications were evident. IMPRESSION: Successful fluoroscopically guided lumbar puncture with collection of 8 cc of cerebrospin al fluid which was sent to the laboratory for analysis as ordered. ACT 112: Negative or not required by law. Electronically signed by: Isai Troy M.D. 12/20/2021 4:24 PM
[2021-12-20 18:29] LABS: CSF Glucose 79 mg/dl (40-70)
[2021-12-20 18:45] LABS: CSF Chemistry Tube # 1
[2021-12-20 19:04] LABS: Appearance CSF Clear; CSF Count Tube # 3; CSF Xanthrochromic No xanthochromia; Color CSF Colorless; Red Blood Cell CSF (B) 4 /uL (0-); Red Blood Cell CSF Auto 0 /uL (0-); White Blood Cell CSF (B) 0 /uL (0-5); White Blood Cell CSF Auto 0 /uL (0-5)
[2021-12-20 19:28] LABS: Cryptococcus neoformans/ga PCR Not Detected (NotDetected); Cytomegalovirus PCR Not Detected (NotDetected); Enterovirus PCR Not Detected (NotDetected); Escherichia coli K1 PCR Not Detected (NotDetected); Haemophilius influenzae PCR Not Detected (NotDetected); Herpes Simplex Virus 1 PCR Not Detected (NotDetected); Herpes Simplex Virus 2 PCR Not Detected (NotDetected); Human Herpes Virus 6 PCR Not Detected (NotDetected); Human Parechovirus PCR Not Detected (NotDetected); Listeria monocytogenes PCR Not Detected (NotDetected); Neisseria meningitidis PCR Not Detected (NotDetected); Streptococcus agalactiae PCR Not Detected (NotDetected); Streptococcus pneumoniae PCR Not Detected (NotDetected); Varicella Zoster Virus PCR Not Detected (NotDetected)
[2021-12-21] MEDS: levETIRAcetam 500 MG in 0.9 % SODIUM CHLORIDE 100 ML IV SCH ×2 (00:26→12:45)
[2021-12-21] MEDS: dexAMETHasone 1 MG TAB PO SCH ×2 (08:23→19:44)
[2021-12-21] MEDS: dilTIAZem HCL 30 MG TAB PO SCH ×2 (08:23→19:44)
[2021-12-21] MEDS: METOPROLOL SUCC 50MG EXT REL TAB PO SCH (08:23)
[2021-12-21] MEDS: methIMAzole 5 MG TABLET PO SCH ×2 (08:24→19:44)
[2021-12-21] MEDS: ATORVASTATIN 10 MG TAB PO SCH (08:24)
[2021-12-21] MEDS: ADVANCED PROBIOTIC 1250 MG CAPSULE PO SCH (08:24)
[2021-12-21] MEDS: MAGNESIUM OXIDE 400 MG TAB PO SCH (08:24)
[2021-12-21] MEDS: POTASSIUM CHLORIDE 10 MEQ TABCR PO SCH (08:28)
[2021-12-21] MEDS: DOCUSATE SODIUM/SENNA 50/8.6MG TAB PO SCH (08:28)
[2021-12-21 09:28] LABS: Hematocrit (blood only) 40.1 % (34.1-44.9); Hemoglobin 13.7 g/dl (12.0-16.0); Mean Corpuscular Hemoglobin 27.6 pg (25.0-34.0); Mean Corpuscular Hgb Conc 34.2 g/dL (32.0-36.0); Mean Corpuscular Volume 80.7 fL (80.0-100.0); Mean Platelet Volume 10.1 fL (9.4-12.3); Platelet Count 126 K/uL (130-400); RDW Coefficient of Variation 16.3 % (11.5-14.5); RDW Standard Deviation 47.6 fL (36.4-46.3); Red Blood Count 4.97 M/uL (3.93-5.22); White Blood Count 7.46 K/ul (4.8-10.8)
[2021-12-21 09:40] LABS: BUN Creatinine Ratio 46.5 (10-20); Calcium 8.5 mg/dl (8.5-10.1); Creatinine Clr Calc Pharmacy 73.4 ml/min; Est GFR (African American) 104.5 ml/min; Est GFR (Non-African American) 90.2 ml/min; Magnesium 2.2 mg/dl (1.7-2.4)
[2021-12-21] MEDS: APIXABAN 2.5 MG TAB PO SCH ×2 (10:03→19:45)
--- NOTE | 2021-12-21 11:00 | Neurology Progress Note ---
Date of Service December 21, 2021 Assessment & Plan (1) Seizure-like activity: (2) Altered mental status: (3) Stroke-like symptom: Plan 89-year-old female with persistent altered mental status, occurring in the context of chronic left frontal encephalomalacia due to remote left supraclinoid aneurysm clipping many years ago, declining function over at least the past month with episodes of agitated delirium although nonconvulsive seizures not completely excluded and spite of negative EEG. No evidence of meningoencephalitis on recent lumbar puncture/CSF analysis. I am unable to completely exclude a subacute stroke in this patient as she is unable to have a brain MRI completed due to her history of remote cerebral aneurysm clipping and dual-chamber cardiac pacer. She does have persistent left lower extremity weakness which could be consistent with a right hemispheric or brainstem infarct in spite of unremarkable follow-up CT of the head in this regard. In terms of secondary stroke risk management, she is prescribed Eliquis and should continue with this medication. There is no evidence of FINANCIAL AID ADVISOR hemorrhage. Further, she has continued with empiric IV Keppra, 500 mg every 12 hours. Because her mental status appears to be modestly improved this morning, I would like her to continue with this medication in spite of lack of epileptiform abnormalities on recent EEG. Subclinical seizures cannot be excluded. May transition to p.o. Keppra when appropriate from a medical standpoint. PT OT when able to participate. Admission and Anticipated Discharge Date Admission Date: December 17, 2021 Subjective Follow-up for encephalopathy Patient is currently resting comfortably in bed, she does awaken to voice and is oriented to "[facility]." She does not voice any particular complaints, but remains mildly encephalopathic and is an unreliable historian. She did have a lumbar puncture completed yesterday. CSF fairly normal-appearing, mild nonspecific elevation in protein, otherwise normal, including CSF meningoencephalitis bio fire panel. Patient continues with IV Keppra 500 mg every 12 hours. Has not had any obvious convulsive activity but some tendency for agitated delirium noted per recent psychiatry consultation with recommendation for Zyprexa IM versus Seroquel at bedtime with recommendation to limit alprazolam, dexamethasone. She continues to have some weakness for the left lower extremity on examination as well. Review of Systems Review of Systems: Unobtainable due to cognitive status Results & Data ([facility]) Vital Signs (Past 12 Hours) Vital Signs Temp Pulse Pulse Resp BP Pulse Ox O2 Del Method 12/21/21 07:26 60 12/21/21 06:47 36.7 C 86 18 107/63 96 Room Air 12/21/21 03:35 36.7 C 73 18 118/78 99 Room Air 12/20/21 23:08 36.5 C 91 H 18 105/67 96 Room Air Laboratory Results WBC 7.46, hemoglobin 13.7, hematocrit 40.1, platelet count 126, sodium 139, potassium 4.0, BUN 20, creatinine 0.43, glucose 151, magnesium 2.2. Lumbar puncture completed yesterday, results reviewed. CSF clear, colorless, no xanthochromia, CSF WBC 0, RBC 0, CSF glucose 79, protein 58.8, meningoencephalitis bio fire panel negative. CSF gram stain negative. Diagnostic Findings EEG completed December 18, 2021 was negative for epileptiform abnormalities. There was a mild nonspecific encephalopathy. Repeat CT of the head completed December 18, 2021 revealed a chronic area of encephalomalacia within the left basal frontal lobe with evidence of prior left frontal craniotomy and left supraclinoid aneurysm clipping. There is chronic microvascular ischemic disease as well as mild generalized atrophy as well. No hemorrhage or acute process. I independently reviewed these images again. Exam (Neuro) Physical Exam: As above, patient is resting comfortably in bed, she opens her eyes to voice, when asked where she was, she responded with "[place]." She is otherwise lethargic and exhibits poor attention, needs constant redirecting, was able to follow commands. Visual costa full. Extraocular movements intact. No gaze preference or nystagmus. No facial droop. She is generally weak but will lift both upper limbs out of the bed briefly to command. Able to grasp weakly bilaterally. He does not really move either lower limb very well at all but will wiggle the toes of the right foot to command and is able to bend or flex the right knee slightly to command as well. Unable to lift the limb out of the bed against gravity. Does not move the left lower extremity to command. She will withdrawal both lower limbs to noxious plantar stimulation, although more so on the right. No tremors or other dyskinetic movements observed. No abnormal posturing. Limited examination due to poor patient attention. Coding Level of Care Code 12163 Subseq Hosp Care Lvl 2 Diagnoses Seizure-like activity R56.9 Altered mental status R41.0 Altered mental status type: delirium Stroke-like symptom R29.90 (1) Altered mental status Altered mental status type: delirium Qualified Code(s): R41.0 - Disorientation, unspecified
--- NOTE | 2021-12-21 13:53 | Hospitalist Progress Note ---
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 Per her daughter, since last few weeks PICKER/PULLER her mental status is declining and she is not getting better. She is being managed for the following: Altered mental status: unclear etiology BLE wounds Possible MDR UTI/ likely complicated UTI ?? colonization Patient presented with confusion, as per daughter patient has been declining since last few weeks PICKER/PULLER. At presentation, patient was mumbling and not answering any questions. 12/17 AM exam, patient was oriented x3 but unable to move her left lower extremity. Sensation was intact BLE. Patient does have a history of recurrent falls. Patient had ? shaky episode before coming to the hospital, concern for postictal Admitting UA negative for UTI but 12/17 U Cx positive for MDR E. Faecium, admitting wbc minimally elevated then has been wnl. Pt has been afebrile. Renal Fxns and electrolytes are normal. Admitting imagings C-spine CT: No acute findings but with severe multilevel degenerative changes within the cervical spine. Head CT: Chronic finding of encephalomalacia of the inferior left frontal lobe. Involutional changes with ex vacuo ventriculomegaly. Pelvic x-ray: No acute findings. CXR: No acute findings. CTAP: No acute findings. F/u CT head 12/18: No new changes compared to prior. 12/18 EEG: fairly normal-appearing awake/drowsy EEG. No epileptiform abnormalities observed. D/w neurology 12/19, concern for underlying seizure activity, on trial of keppra and continue to monitor. S/P LP 12/20: fluid analysis fairly wnl, meningoencephalitis panel pcr negative, f/u CSF C/S Pt w/ periods of mental fluctuation and emotional lability. Psy evaluated 12/19, appreciate recs. Speech evaluated 12/17, cleared her for diet. Pt eating ok during her normal mentation periods BLE wounds, superficial laceration on right lateral calf [noted to be draining at admission] -->> 12/17 Wound Cx MSSA. Patient started on Zosyn and doxycycline on 12/17 --> MDR E faecium in U Cx noted on 12/20 --> Zosyn DC'd 12/20, Vanc started 12/20, ID consulted. Follow final results on blood culture. Palliative eval: appreciate palliative care input. Mild elevation of troponin: Troponin elevated at presentation, patient with no chest pain, likely chronic, will trend troponin. Admitting EKG with no acute changes. Generalized weakness/ambulatory dysfunction in the left foot: PT/OT when stable Amiodarone induced thyroiditis and hyperthyroidism: On methimazole and dexamethasone 1 Mg p.o. twice daily. Follows endocrinology. Paroxysmal A. fib: On metoprolol/Cardizem/digoxin/Eliquis. Other chronic medical conditions: Tachybradycardia syndrome [status post pacemaker], constipation [on a stool softener], history of TIA --->> continue with/resume home meds as and when appropriate. DVT prophylaxis: Eliquis on hold for possible LP. Full code Dispo: PT/OT, CM to assist w/ DC plan. Pending ID eval and final CSF results. 12/17: Updated patient's daughter Marianela over the phone, spent around 17 minutes in [id number] session, answered all her questions to her satisfaction. 12/20: Updated pt'd dtr Marianela, approximately 15-17 minutes spent in QnA, answered all questions to her satisfaction. Admission and Anticipated Discharge Date Admission Date: December 17, 2021 Subjective Patient seen and examined at bedside as a follow-up of altered mental status and mild elevation of troponin. Pt was lying in bed, on RA, NAD, looking lethargic/encephalopathic, not conversive but cooperative with exam. ROS n/a. Per RN, pt was pleasant in AM, no issues overnight, has been confused on/off, is eating ok. Physical Exam Physical Exam: GENERAL: Alert and Awake. on RA. Appears old/ill/frail/weak. HEENT: No pallor, no icterus. Pupils equal, round and reactive to light. Oral mucosa moist. NECK: No JVD, no neck masses. HEART: S1 and S2 heard. Regular rate and rhythm. No murmur, no gallop. RESPIRATORY SYSTEM: Normal AP diameter. No accessory muscle use. No wheezing, no crackles. ABDOMEN: Soft, bowel sounds present, nontender, no distention. CENTRAL NERVOUS SYSTEM: No facial droop. LLE weakness EXTREMITIES: b/l shins w/ bruises, Rt lateral leg w/ wound/superficial laceration. 1+ pitting b/l ankle edema. Results & Data Results & Data ([facility]) Vital Signs (Past 12 Hours) Vital Signs Temp Pulse Pulse Resp BP Pulse Ox O2 Del Method 12/21/21 11:17 36.3 C L 81 18 120/74 94 Room Air 12/21/21 07:26 60 12/21/21 06:47 36.7 C 86 18 107/63 96 Room Air 12/21/21 03:35 36.7 C 73 18 118/78 99 Room Air (1) Altered mental status Altered mental status type: delirium Qualified Code(s): R41.0 - Disorientation, unspecified
[2021-12-21] MEDS ORDERED: VANCOMYCIN HCL 1,250 MG in SODIUM CHLORIDE 0.9% 250 ML IV SCH (16:00)
[2021-12-21] MEDS: DIGOXIN 0.125 MG TAB PO SCH (16:36)
[2021-12-21] MEDS: ACETAMINOPHEN 325 MG TAB PO PRN ×2 (16:41→22:13)
[2021-12-21] MEDS: POLYETHYLENE (MIRALAX) 17 GM PACK PO PRN (19:43)
[2021-12-21] MEDS ORDERED: SODIUM CHLORIDE 0.9% 1000ML 1,000 ML IV ONE (22:27)
--- NOTE | 2021-12-21 22:51 | XRay Report ---
XR chest 1V portable CLINICAL HISTORY: fever TECHNIQUE: Single frontal radiograph of the chest was obtained. Comparison: Comparison is made to chest radiograph 12/16/2021 FINDINGS: Dual lead pacemaker is noted. Cardiomegaly is noted. The aortic arch is calcified. The lungs are aric r. No evidence of pleural effusion or pneumothorax. Right reverse shoulder arthroplasty is seen. IMPRESSION: No acute abnormalities and in particular no evidence of pneumonia. ACT 112: Negative or not required by law. Electronically signed by: Zach Christy M.D. 12/21/2021 10:50 PM
[2021-12-22 01:13] LABS: Appearance Urine Clear (Clear); Bilirubin Urine Negative (Negative); Blood Urine Negative (Negative); Color Urine Yellow; Glucose Urine UA 2+ (Negative); Ketones Urine Trace (Negative); Leukocyte Esterase Urine Negative (Negative); Nitrite Urine Negative (Negative); Protein Urine Trace (Negative); Specific Gravity Urine 1.027 (1.000-1.030); Urobilinogen Urine Negative (Negative); pH Urine 6.5 (4.5-7.5)
[2021-12-22] MEDS: levETIRAcetam 500 MG in 0.9 % SODIUM CHLORIDE 100 ML IV SCH ×2 (01:14→12:54)
[2021-12-22] MEDS: ACETAMINOPHEN 325 MG TAB PO PRN (04:52)
[2021-12-22] MEDS: methIMAzole 5 MG TABLET PO SCH ×2 (07:53→20:36)
[2021-12-22] MEDS: APIXABAN 2.5 MG TAB PO SCH ×2 (07:53→20:35)
[2021-12-22] MEDS: ADVANCED PROBIOTIC 1250 MG CAPSULE PO SCH (07:54)
[2021-12-22] MEDS: dexAMETHasone 1 MG TAB PO SCH ×2 (07:54→20:35)
[2021-12-22] MEDS: ATORVASTATIN 10 MG TAB PO SCH (07:54)
[2021-12-22] MEDS: dilTIAZem HCL 30 MG TAB PO SCH ×2 (07:54→20:35)
[2021-12-22] MEDS: MAGNESIUM OXIDE 400 MG TAB PO SCH (07:54)
[2021-12-22] MEDS: METOPROLOL SUCC 50MG EXT REL TAB PO SCH (07:54)
[2021-12-22] MEDS: POTASSIUM CHLORIDE 10 MEQ TABCR PO SCH (07:57)
[2021-12-22] MEDS: DOCUSATE SODIUM/SENNA 50/8.6MG TAB PO SCH (07:57)
[2021-12-22 08:55] LABS: Creatinine Clr Calc Pharmacy 126.2 ml/min; Est GFR (African American) 124.9 ml/min; Est GFR (Non-African American) 107.8 ml/min
--- NOTE | 2021-12-22 10:56 | Pharmacy Report ---
Pharmacy PK ABX Note - Date of Service December 22, 2021 - Assessment and Plan Assessment 12/22: * Random level today (although somewhat pre-steady state) indicates current regimen is significantly subtherapeutic. Will plan to increase regimen and reach a level in ~48 hours given age and surprising clearance rate thus far. 12/20 * 89 year old F receiving vancomycin for treatment of MSSA cellulitis plus possible E. faecium UTI (not VRE) vs. asymptomatic bacteriuria. Risk/benefit of cefazolin monotherapy (for MSSA only) vs. vancomycin monotherapy (for coverage for both) discussed with Dr. Rubio - favors treatment for both at this time given unexplained etiology for confusion despite extensive work-up * SCr stable and at/near baseline Plan Vancomycin * increase to 1250 mg IV every 12 hours * Regimen is predicted to achieve target AUC/KATINA of 400-600 mg/L.hr * Random level ordered for 12/24 with AM labs Pharmacy will continue to follow and will adjust dose/frequency as necessary. Thank you. Pharmacy has transitioned to AUC monitoring for vancomycin. AUC/KATINA is the preferred PK/PD target and is associated with decreased risk of nephrotoxicity compared to traditional trough targets.
[2021-12-22] MEDS: VANCOMYCIN HCL 1,250 MG in SODIUM CHLORIDE 0.9% 250 ML IV SCH ×2 (11:26→23:12)
--- NOTE | 2021-12-22 14:52 | Hospitalist Progress Note ---
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 Per her daughter, since last few weeks [employer] her mental status is declining and she is not getting better. She is being managed for the following: Altered mental status: unclear etiology BLE wounds Possible MDR UTI/ likely complicated UTI ?? colonization Patient presented with confusion, as per daughter patient has been declining since last few weeks [employer]. At presentation, patient was mumbling and not answering any questions. 12/17 AM exam, patient was oriented x3 but unable to move her left lower extremity. Sensation was intact BLE. Patient does have a history of recurrent falls. Patient had ? shaky episode before coming to the hospital, concern for postictal Admitting UA negative for UTI but 12/17 U Cx positive for MDR E. Faecium, admitting wbc minimally elevated then has been wnl. Pt has been afebrile. Renal Fxns and electrolytes are normal. Admitting imagings C-spine CT: No acute findings but with severe multilevel degenerative changes within the cervical spine. Head CT: Chronic finding of encephalomalacia of the inferior left frontal lobe. Involutional changes with ex vacuo ventriculomegaly. Pelvic x-ray: No acute findings. CXR: No acute findings. CTAP: No acute findings. F/u CT head 12/18: No new changes compared to prior. 12/17 Bl Cx: no growth 12/18 EEG: fairly normal-appearing awake/drowsy EEG. No epileptiform abnormalities observed. D/w neurology 12/19, concern for underlying seizure activity, on trial of keppra and continue to monitor. S/P LP 12/20: fluid analysis fairly wnl, meningoencephalitis panel pcr negative, f/u CSF C/S Pt w/ periods of mental fluctuation and emotional lability. Psy evaluated 12/19, appreciate recs. Speech evaluated 12/17, cleared her for diet. Pt eating ok during her normal mentation periods BLE wounds, superficial laceration on right lateral calf [noted to be draining at admission] -->> 12/17 Wound Cx MSSA. Patient started on Zosyn and doxycycline on 12/17 --> MDR E faecium in U Cx noted on 12/20 --> Zosyn DC'd 12/20, Vanc started 12/20, ID consulted. Palliative eval: appreciate palliative care input. Mild elevation of troponin: Troponin elevated at presentation, patient with no chest pain, likely chronic, will trend troponin. Admitting EKG with no acute changes. Generalized weakness/ambulatory dysfunction in the left foot: PT/OT when stable Amiodarone induced thyroiditis and hyperthyroidism: On methimazole and dexamethasone 1 Mg p.o. twice daily. Follows endocrinology. Paroxysmal A. fib: On metoprolol/Cardizem/digoxin/Eliquis. Other chronic medical conditions: Tachybradycardia syndrome [status post pacemaker], constipation [on a stool softener], history of TIA --->> continue with/resume home meds as and when appropriate. DVT prophylaxis: Eliquis Full code Dispo: PT/OT, CM to assist w/ DC plan. Pending ID eval and final CSF results. 12/17: Updated patient's daughter Marianela over the phone, spent around 17 minutes in [id number] session, answered all her questions to her satisfaction. 12/20: Updated pt'd dtr Marianela, approximately 15-17 minutes spent in QnA, answered all questions to her satisfaction. Admission and Anticipated Discharge Date Admission Date: December 17, 2021 Subjective Patient seen and examined at bedside as a follow-up of altered mental status and mild elevation of troponin. Pt was lying in bed, on RA, NAD, alert and awake, denies pain/dicomfort, reports eating ok and moving bowels ok, reports feeling transiently warm overnight. Per RN, she is doing better, no issues overnight. Pt denies chest pain or sob or other ros. Physical Exam Physical Exam: GENERAL: Alert and Awake. on RA. Appears old/ill/frail/weak. HEENT: No pallor, no icterus. Pupils equal, round and reactive to light. Oral mucosa moist. NECK: No JVD, no neck masses. HEART: S1 and S2 heard. Regular rate and rhythm. No murmur, no gallop. RESPIRATORY SYSTEM: Normal AP diameter. No accessory muscle use. No wheezing, no crackles. ABDOMEN: Soft, bowel sounds present, nontender, no distention. CENTRAL NERVOUS SYSTEM: No facial droop. LLE weakness EXTREMITIES: b/l shins w/ bruises, Rt lateral leg w/ wound/superficial laceration. 1+ pitting b/l ankle edema. Results & Data Results & Data ([facility]) Vital Signs (Past 12 Hours) Vital Signs Temp Pulse Pulse Resp BP Pulse Ox O2 Del Method 12/22/21 14:34 36.8 C 75 18 119/72 97 Room Air 12/22/21 11:16 36.3 C L 89 18 107/67 97 Room Air 12/22/21 07:26 60 12/22/21 06:36 36.6 C 60 18 119/67 93 Room Air 12/22/21 03:36 37.1 C 66 18 126/67 95 Room Air (1) Altered mental status Altered mental status type: delirium Qualified Code(s): R41.0 - Disorientation, unspecified
[2021-12-22] MEDS: DIGOXIN 0.125 MG TAB PO SCH (16:52)
[2021-12-22] MEDS: POLYETHYLENE (MIRALAX) 17 GM PACK PO PRN (17:06)
[2021-12-22] MEDS: MELATONIN 3 MG TAB PO PRN (20:40)
[2021-12-23] MEDS: levETIRAcetam 500 MG in 0.9 % SODIUM CHLORIDE 100 ML IV SCH ×2 (01:32→12:34)
[2021-12-23] MEDS: ADVANCED PROBIOTIC 1250 MG CAPSULE PO SCH (08:34)
[2021-12-23] MEDS: methIMAzole 5 MG TABLET PO SCH ×3 (08:34→20:26)
[2021-12-23] MEDS: APIXABAN 2.5 MG TAB PO SCH ×2 (08:34→20:25)
[2021-12-23] MEDS: METOPROLOL SUCC 50MG EXT REL TAB PO SCH (08:34)
[2021-12-23] MEDS: dexAMETHasone 1 MG TAB PO SCH ×2 (08:35→20:25)
[2021-12-23] MEDS: MAGNESIUM OXIDE 400 MG TAB PO SCH (08:35)
[2021-12-23] MEDS: ATORVASTATIN 10 MG TAB PO SCH (08:35)
[2021-12-23] MEDS: DOCUSATE SODIUM/SENNA 50/8.6MG TAB PO SCH (08:35)
[2021-12-23] MEDS: dilTIAZem HCL 30 MG TAB PO SCH ×2 (08:35→20:25)
[2021-12-23] MEDS: POTASSIUM CHLORIDE 10 MEQ TABCR PO SCH (08:37)
[2021-12-23] MEDS: VANCOMYCIN HCL 1,250 MG in SODIUM CHLORIDE 0.9% 250 ML IV SCH ×2 (11:33→23:13)
[2021-12-23] MEDS: ACETAMINOPHEN 325 MG TAB PO PRN ×2 (13:32→20:24)
[2021-12-23] MEDS ORDERED: KETOROLAC TROMETHAMINE 15 MG/ML VIAL IV ONE (14:31)
--- NOTE | 2021-12-23 14:37 | Hospitalist Progress Note ---
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 Per her daughter, since last few weeks KILNMAN her mental status is declining and she is not getting better. She is being managed for the following: Altered mental status: unclear etiology BLE wounds Possible MDR UTI/ likely complicated UTI ?? colonization Patient presented with confusion, as per daughter patient has been declining since last few weeks KILNMAN. At presentation, patient was mumbling and not answering any questions. 12/17 AM exam, patient was oriented x3 but unable to move her left lower extremity. Sensation was intact BLE. Patient does have a history of recurrent falls. Patient had ? shaky episode before coming to the hospital, concern for postictal Admitting UA negative for UTI but 12/17 U Cx positive for MDR E. Faecium, admitting wbc minimally elevated then has been wnl. Pt has been afebrile. Renal Fxns and electrolytes are normal. Admitting imagings C-spine CT: No acute findings but with severe multilevel degenerative changes within the cervical spine. Head CT: Chronic finding of encephalomalacia of the inferior left frontal lobe. Involutional changes with ex vacuo ventriculomegaly. Pelvic x-ray: No acute findings. CXR: No acute findings. CTAP: No acute findings. F/u CT head 12/18: No new changes compared to prior. 12/17 Bl Cx: no growth 12/18 EEG: fairly normal-appearing awake/drowsy EEG. No epileptiform abnormalities observed. D/w neurology 12/19, concern for underlying seizure activity, on trial of keppra and continue to monitor. S/P LP 12/20: fluid analysis fairly wnl, meningoencephalitis panel pcr negative, f/u CSF C/S; CSF path neg for malignancy. Pt w/ periods of mental fluctuation and emotional lability. Psy evaluated 12/19, appreciate recs. Speech evaluated 12/17, cleared her for diet. Pt eating ok during her normal mentation periods BLE wounds, superficial laceration on right lateral calf [noted to be draining at admission] -->> 12/17 Wound Cx MSSA. Patient started on Zosyn and doxycycline on 12/17 --> MDR E faecium in U Cx noted on 12/20 --> Zosyn DC'd 12/20, Vanc started 12/20, ID consulted. f/u ID eval and recs. Palliative eval: appreciate palliative care input. Mild elevation of troponin: Troponin elevated at presentation, patient with no chest pain, likely chronic, will trend troponin. Admitting EKG with no acute changes. Generalized weakness/ambulatory dysfunction in the left foot: PT/OT when stable Amiodarone induced thyroiditis and hyperthyroidism: On methimazole and dexamethasone 1 Mg p.o. twice daily. Follows endocrinology. Paroxysmal A. fib: On metoprolol/Cardizem/digoxin/Eliquis. Other chronic medical conditions: Tachybradycardia syndrome [status post pacemaker], constipation [on a stool softener], history of TIA --->> continue wi th/resume home meds as and when appropriate. DVT prophylaxis: Eliquis Full code Dispo: PT/OT, CM to assist w/ DC plan. Pending ID eval and final CSF results. 12/17: Updated patient's daughter Marianela over the phone, spent around 17 minutes in [id number] session, answered all her questions to her satisfaction. 12/20: Updated pt'd dtr Marianela, approximately 15-17 minutes spent in QnA, answered all questions to her satisfaction. Admission and Anticipated Discharge Date Admission Date: December 17, 2021 Subjective Patient seen and examined at bedside as a follow-up of altered mental status and mild elevation of troponin. Pt was lying in bed, on RA, NAD, alert and awake, denies pain/dicomfort, reports eating ok and moving bowels ok. Pt denies chest pain, headache, dizziness, belly pain or sob or other ros. Physical Exam Physical Exam: GENERAL: Alert and Awake. on RA. Appears old/ill/frail/weak. HEENT: No pallor, no icterus. Pupils equal, round and reactive to light. Oral mucosa moist. NECK: No JVD, no neck masses. HEART: S1 and S2 heard. Regular rate and rhythm. No murmur, no gallop. RESPIRATORY SYSTEM: Normal AP diameter. No accessory muscle use. No wheezing, no crackles. ABDOMEN: Soft, bowel sounds present, nontender, no distention. CENTRAL NERVOUS SYSTEM: No facial droop. LLE weakness EXTREMITIES: b/l shins w/ bruises, Rt lateral leg w/ wound/superficial laceration. 1+ pitting b/l ankle edema. Results & Data Results & Data ([facility]) Vital Signs (Past 12 Hours) Vital Signs Temp Pulse Pulse Resp BP Pulse Ox O2 Del Method 12/23/21 11:21 36.5 C 77 16 111/70 94 Room Air 12/23/21 09:22 65 12/23/21 07:44 36.5 C 66 18 141/82 H 97 Room Air 12/23/21 03:53 36.4 C L 68 16 108/65 97 Room Air (1) Altered mental status Altered mental status type: delirium Qualified Code(s): R41.0 - Disorientation, unspecified
[2021-12-23] MEDS: DIGOXIN 0.125 MG TAB PO SCH (16:32)
[2021-12-23] MEDS: MELATONIN 3 MG TAB PO PRN (20:25)
[2021-12-24] MEDS: levETIRAcetam 500 MG in 0.9 % SODIUM CHLORIDE 100 ML IV SCH ×2 (01:17→11:57)
[2021-12-24 07:17] LABS: Creatinine Clr Calc Pharmacy 87.6 ml/min; Est GFR (African American) 110.8 ml/min; Est GFR (Non-African American) 95.6 ml/min
[2021-12-24] MEDS: APIXABAN 2.5 MG TAB PO SCH ×3 (07:24→21:31)
[2021-12-24] MEDS: ATORVASTATIN 10 MG TAB PO SCH (07:25)
[2021-12-24] MEDS: dexAMETHasone 1 MG TAB PO SCH ×3 (07:25→21:33)
[2021-12-24] MEDS: dilTIAZem HCL 30 MG TAB PO SCH ×3 (07:25→21:33)
[2021-12-24] MEDS: methIMAzole 5 MG TABLET PO SCH ×3 (07:25→21:31)
[2021-12-24] MEDS: MAGNESIUM OXIDE 400 MG TAB PO SCH (07:26)
[2021-12-24] MEDS: DOCUSATE SODIUM/SENNA 50/8.6MG TAB PO SCH (07:26)
[2021-12-24] MEDS: METOPROLOL SUCC 50MG EXT REL TAB PO SCH (07:26)
[2021-12-24] MEDS: ADVANCED PROBIOTIC 1250 MG CAPSULE PO SCH (07:26)
[2021-12-24] MEDS: POTASSIUM CHLORIDE 10 MEQ TABCR PO SCH (07:28)
[2021-12-24] MEDS: VANCOMYCIN HCL 1,000 MG in SODIUM CHLORIDE 0.9% 250 ML IV SCH ×2 (09:30→23:22)
--- NOTE | 2021-12-24 12:45 | Pharmacy Report ---
Pharmacy PK ABX Note - Date of Service December 24, 2021 - Assessment and Plan Assessment 12/24: * Random level today is predicting a supratherapeutic regimen. Will decrease dose slightly, random level for 12/26. 12/22: * Random level today (although somewhat pre-steady state) indicates current regimen is significantly subtherapeutic. Will plan to increase regimen and reach a level in ~48 hours given age and surprising clearance rate thus far. 12/20 * 89 year old F receiving vancomycin for treatment of MSSA cellulitis plus possible E. faecium UTI (not VRE) vs. asymptomatic bacteriuria. Risk/benefit of cefazolin monotherapy (for MSSA only) vs. vancomycin monotherapy (for coverage for both) discussed with Dr. Rubio - favors treatment for both at this time given unexplained etiology for confusion despite extensive work-up * SCr stable and at/near baseline Plan Vancomycin * decrease to 1000 mg IV every 12 hours * Regimen is predicted to achieve target AUC/KTAINA of 400-600 mg/L.hr * Random level ordered for 12/26 with AM labs Pharmacy will continue to follow and will adjust dose/frequency as necessary. Thank you. Pharmacy has transitioned to AUC monitoring for vancomycin. AUC/KATINA is the preferred PK/PD target and is associated with decreased risk of nephrotoxicity compared to traditional trough targets.
--- NOTE | 2021-12-24 15:25 | Hospitalist Progress Note ---
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 She is being managed for the following: Altered mental status: Multiple etiologies as above and is complicated by UTI and bilateral leg wounds BLE wounds Possible MDR UTI/ likely complicated UTI ?? colonization Patient presented with confusion, as per daughter patient has been declining since last few weeks RENAL DIALYSIS RN. At presentation, patient was mumbling and not answering any questions. 12/17 AM exam, patient was oriented x3 but unable to move her left lower extremity. Sensation was intact BLE. Patient does have a history of recurrent falls. BLE wounds, superficial laceration on right lateral calf [noted to be draining at admission] -->> 12/17 Wound Cx MSSA. Admitting UA negative for UTI but 12/17 U Cx positive for MDR E. Faecium, admitting wbc minimally elevated then has been wnl. Pt has been afebrile. Renal Fxns and electrolytes are normal. Patient started on Zosyn and doxycycline on 12/17 --> MDR E faecium in U Cx noted on 12/20 --> Zosyn DC'd 12/20, Vanc started 12/20, ID consulted. f/u ID eval and recs.-Appreciate input and recommendation Blood cultures have been negative Clinically not any better and remains extremely weak and lethargic Mental cloudiness seems to be improving We will continue with PT and OT Possible seizure Patient had ? shaky episode before coming to the hospital, concern for postictal 12/18 EEG: fairly normal-appearing awake/drowsy EEG. No epileptiform abnormalities observed. D/w neurology 12/19, concern for underlying seizure activity, on trial of keppra and continue to monitor. S/P LP 12/20: fluid analysis fairly wnl, meningoencephalitis panel pcr negative, f/u CSF C/S; CSF path neg for malignancy. Pt w/ periods of mental fluctuation and emotional lability. Psy evaluated 12/19, appreciate recs. Speech evaluated 12/17, cleared her for diet. Pt eating ok during her normal mentation periods Admitting imagings C-spine CT: No acute findings but with severe multilevel degenerative changes within the cervical spine. Head CT: Chronic finding of encephalomalacia of the inferior left frontal lobe. Involutional changes with ex vacuo ventriculomegaly. Pelvic x-ray: No acute findings. CXR: No acute findings. CTAP: No acute findings. F/u CT head 12/18: No new changes compared to prior. Palliative eval: appreciate palliative care input. Mild elevation of troponin: Troponin elevated at presentation, patient with no chest pain, likely chronic, will trend troponin. Admitting EKG with no acute changes. Generalized weakness/ambulatory dysfunction in the left foot: PT/OT when stable Amiodarone induced thyroiditis and hyperthyroidism: On methimazole and dexamethasone 1 Mg p.o. twice daily. Follows endocrinology. Paroxysmal A. fib: On metoprolol/Cardizem/digoxin/Eliquis. Other chronic medical conditions: Tachybradycardia syndrome [status post pacemaker], constipation [on a stool softener], history of TIA --->> continue with/resume home meds as and when appropriate. DVT prophylaxis: Eliquis Full code Dispo: PT/OT, CM to assist w/ DC plan. Accepted to [facility] but patient remains very lethargic to be transferred Admission and Anticipated Discharge Date Admission Date: December 17, 2021 Subjective 12/24/2021 The patient was seen and examined in medical telemetry unit She has been extremely weak and lethargic Denies any significant pain, nausea and or vomiting Does not seems to be confused Review of Systems Review of Systems: All systems reviewed and are unremarkable except as noted below Musculoskeletal: Remains extremely weak and lethargic Physical Exam Physical Exam: Lying in bed without any acute distress except minimal short of breath Constitutional: + ill appearing and average body habitus Eyes: PERRL, conjunctivae normal, anicteric sclerae ENMT: external ear and nose normal, oropharynx normal Neck: trachea midline, no thyromegaly Respiratory: + respiratory distress (Minimal respiratory distress at rest) Auscultation: + diminished lung sounds and + crackles (Occasional crackles at the bases) Cardiovascular: Rate/Rhythm: regular rate and regular rhythm; not tachycardic Heart Sounds: normal S1, normal S2 and + murmur Extremities: + edema (1+ edema bilaterally) Gastrointestinal (Abdomen): Inspection/Auscultation: normal bowel sounds; abdomen not distended Percussion/Palpation: abdomen soft; abdomen nontender Musculoskeletal: Left foot drop. No acute arthritis in any joint Neurologic: Alert, awake and oriented. Extremely lethargic and depressed to Lymphatic: no cervical or axillary lymphadenopathy Results & Data Results & Data ([facility]) Vital Signs (Past 12 Hours) Vital Signs Temp Pulse Pulse Resp BP Pulse Ox O2 Del Method 12/24/21 11:19 36.9 C 64 18 120/69 95 12/24/21 07:29 36.9 C 66 18 133/78 98 Room Air 12/24/21 07:08 64 12/24/21 04:00 36.4 C L 78 20 126/73 97 Room Air Laboratory Results [facility] 12/24/21 06:06 Creatinine 0.36 L Medications Administered Current Inpatient Medications Acetaminophen (Acetaminophen 325 Mg Tab) 650 mg PO Q4H PRN PRN Reason: Pain or Fever Stop: 01/16/22 06:31 Last Admin: 12/23/21 20:24 Dose: 650 mg Alprazolam (Alprazolam 0.25 Mg Tablet) 0.25 mg PO HS PRN PRN Reason: anxiety Stop: 01/16/22 06:31 Apixaban (Apixaban 2.5 Mg Tab) 2.5 mg PO BID [facility] Stop: 01/16/22 08:59 Last Admin: 12/24/21 07:24 Dose: 2.5 mg Atorvastatin Calcium (Atorvastatin 10 Mg Tab) 10 mg PO DAILY [facility] Stop: 01/16/22 08:59 Last Admin: 12/24/21 07:25 Dose: 10 mg Dexamethasone (Dexamethasone 1 Mg Tab) 1 mg PO BID [facility] Stop: 01/16/22 08:59 Last Admin: 12/24/21 07:25 Dose: 1 mg Digoxin (Digoxin 0.125 Mg Tab) 0.125 mg PO DAILY@1600 [facility] Stop: 01/16/22 15:59 Last Admin: 12/23/21 16:32 Dose: 0.125 mg Diltiazem HCl (Diltiazem Hcl 30 Mg Tab) 30 mg PO BID [facility] Stop: 01/16/22 08:59 Last Admin: 12/24/21 07:25 Dose: 30 mg Docusate Sodium (Docusate Sodium 100 Mg Cap) 100 mg PO HS PRN PRN Reason: Constipation Stop: 01/16/22 06:31 Furosemide (Furosemide 20 Mg Tab) 20 mg PO 2XWK PRN PRN Reason: sweling & weight gain Stop: 01/16/22 06:31 Hydroxyzine HCl (Hydroxyzine Hcl 10 Mg Tab) 10 mg PO Q6 PRN PRN Reason: anxiety Stop: 01/16/22 06:31 Last Admin: 12/18/21 03:32 Dose: 10 mg Levetiracetam 500 mg/ Sodium (Chloride) 105 mls @ 420 mls/hr IV Q12H [facility] Stop: 01/18/22 13:14 Last Infusion: 12/24/21 12:23 Dose: Infused Vancomycin HCl 1,000 mg/ (Sodium Chloride) 270 mls @ 200 mls/hr IV Q12H [facility]; Protocol Stop: 01/03/22 10:59 Last Infusion: 12/24/21 11:17 Dose: Infused Lactobacillus Acidophilus (Advanced Probiotic 1250 Mg Capsule) 2 cap PO DAILY [facility] Stop: 01/16/22 08:59 Last Admin: 12/24/21 07:26 Dose: 2 cap Magnesium Hydroxide (Magnesium Hydroxide Susp 30 Ml Udc) 15 ml PO DAILY PRN PRN Reason: Constipation Stop: 01/16/22 06:31 Magnesium Oxide (Magnesium Oxide 400 Mg Tab) 400 mg PO QAM [facility] Stop: 01/16/22 08:59 Last Admin: 12/24/21 07:26 Dose: 400 mg Melatonin (Melatonin 3 Mg Tab) 9 mg PO HS PRN PRN Reason: Sleep Stop: 01/16/22 07:07 Last Admin: 12/23/21 20:25 Dose: 9 mg Methimazole (Methimazole 5 Mg Tablet) 10 mg PO BID [facility] Stop: 01/16/22 08:59 Last Admin: 12/24/21 07:25 Dose: 10 mg Metoprolol Succinate (Metoprolol Succ 50mg Ext Rel Tab) 75 mg PO QAM [facility] Stop: 01/16/22 08:59 Last Admin: 12/24/21 07:26 Dose: 75 mg Miscellaneous Information (Vancomycin Consult Active) 1 each N/A UD PRN PRN Reason: Consult Stop: 01/19/22 14:52 Nitroglycerin (Nitroglycerin Sl 0.4 Mg/Tab Tab) 0.4 mg SL UD PRN PRN Reason: Chest Pain Stop: 01/16/22 06:31 Olanzapine (Olanzapine 10 Mg/2.1 Ml Sdv) 2.5 mg IM Q4H PRN PRN Reason: Anxiety/Agitation Stop: 01/17/22 19:40 Last Admin: 12/18/21 19:56 Dose: 2.5 mg Ondansetron HCl (Ondansetron Inj 2 Mg/Ml 2 Ml Vial) 4 mg IV Q6H PRN PRN Reason: Nausea Stop: 01/16/22 06:31 Polyethylene Glycol (Polyethylene (Miralax) 17 Gm Pack) 17 gm PO DAILY PRN PRN Reason: constipation Stop: 01/16/22 06:31 Last Admin: 12/22/21 17:06 Dose: 17 gm Potassium Chloride (Potassium Chloride 10 Meq Tabcr) 10 meq PO DAILY [facility] Stop: 01/16/22 08:59 Last Admin: 12/24/21 07:28 Dose: 10 meq Senna/Docusate Sodium (Docusate Sodium/Senna 50/8.6mg Tab) 1 tab PO QAM [facility] Stop: 01/16/22 08:59 Last Admin: 12/24/21 07:26 Dose: 1 tab (1) Altered mental status Altered mental status type: delirium Qualified Code(s): R41.0 - Disorientation, unspecified
[2021-12-24] MEDS: ACETAMINOPHEN 325 MG TAB PO PRN (15:47)
[2021-12-24] MEDS: DIGOXIN 0.125 MG TAB PO SCH (15:48)
[2021-12-24] MEDS: MELATONIN 3 MG TAB PO PRN (20:28)
[2021-12-24] MEDS: POLYETHYLENE (MIRALAX) 17 GM PACK PO PRN (21:38)
[2021-12-25] MEDS: levETIRAcetam 500 MG in 0.9 % SODIUM CHLORIDE 100 ML IV SCH ×2 (00:50→11:47)
[2021-12-25] MEDS: APIXABAN 2.5 MG TAB PO SCH ×2 (07:34→20:40)
[2021-12-25] MEDS: ADVANCED PROBIOTIC 1250 MG CAPSULE PO SCH (07:34)
[2021-12-25] MEDS: dilTIAZem HCL 30 MG TAB PO SCH ×2 (07:34→20:39)
[2021-12-25] MEDS: dexAMETHasone 1 MG TAB PO SCH ×2 (07:35→20:40)
[2021-12-25] MEDS: METOPROLOL SUCC 50MG EXT REL TAB PO SCH (07:35)
[2021-12-25] MEDS: ATORVASTATIN 10 MG TAB PO SCH (07:35)
[2021-12-25] MEDS: methIMAzole 5 MG TABLET PO SCH ×2 (07:35→20:40)
[2021-12-25] MEDS: MAGNESIUM OXIDE 400 MG TAB PO SCH (07:35)
[2021-12-25] MEDS: POTASSIUM CHLORIDE 10 MEQ TABCR PO SCH (07:38)
[2021-12-25] MEDS: DOCUSATE SODIUM/SENNA 50/8.6MG TAB PO SCH (07:38)
[2021-12-25 09:59] LABS: Hematocrit (blood only) 37.4 % (34.1-44.9); Hemoglobin 12.5 g/dl (12.0-16.0); Mean Corpuscular Hemoglobin 27.6 pg (25.0-34.0); Mean Corpuscular Hgb Conc 33.4 g/dL (32.0-36.0); Mean Corpuscular Volume 82.6 fL (80.0-100.0); Mean Platelet Volume 9.9 fL (9.4-12.3); Nucleated RBC # (auto) 0.03 K/uL (0-0); Nucleated RBC % (auto) 0.4 %; Platelet Count 146 K/uL (130-400); RDW Coefficient of Variation 16.9 % (11.5-14.5); RDW Standard Deviation 49.4 fL (36.4-46.3); Red Blood Count 4.53 M/uL (3.93-5.22); White Blood Count 8.28 K/ul (4.8-10.8)
[2021-12-25 10:16] LABS: Calcium 8.4 mg/dl (8.5-10.1); Creatinine Clr Calc Pharmacy 98.6 ml/min; Est GFR (African American) 115.2 ml/min; Est GFR (Non-African American) 99.4 ml/min; Phosphorus 2.8 mg/dl (2.5-4.9); Potassium 3.9 mmol/L (3.5-5.1)
[2021-12-25] MEDS: VANCOMYCIN HCL 1,000 MG in SODIUM CHLORIDE 0.9% 250 ML IV SCH (10:22)
[2021-12-25 10:43] LABS: Basophils # (auto) 0.05 K/uL (0-0.2); Basophils % (auto) 0.6 %; Echinocytes 1+; Eosinophils # (auto) 0.02 K/uL (0-0.50); Eosinophils % (auto) 0.2 %; Immature Granulocytes # (auto) 0.75 K/uL (0.00-0.02); Immature Granulocytes % (auto) 9.1 %; Lymphocytes # (auto) 1.47 K/uL (1.2-3.4); Lymphocytes % (auto) 17.8 %; Monocytes # (auto) 0.25 K/uL (0.24-0.82); Neutrophils # (auto) 5.74 K/uL (1.4-6.5); Neutrophils % (auto) 69.3 %
--- NOTE | 2021-12-25 12:04 | XRay Report ---
XR chest 1V portable CLINICAL HISTORY: CHF TECHNIQUE: Single frontal radiograph of the chest was obtained. Comparison: Comparison is made to chest radiograph 12/21/2021 FINDINGS: Right reverse shoulder arthroplasty is seen. Dual-lead pacemaker is noted. Cardiomegaly is noted. The aortic arch is calcified. The lungs are clear. No evidence of pleural effusion or pneumothorax. IMPRESSION: Cardiomegaly is seen without evidence of pulmonary edema. ACT 112: Negative or not required by law. Electronically signed by: Zach Christy M.D. 12/25/2021 12:02 PM
--- NOTE | 2021-12-25 14:09 | Hospitalist Progress Note ---
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 She is being managed for the following: Altered mental status: Multiple etiologies as above and is complicated by UTI and bilateral leg wounds BLE wounds Possible MDR UTI/ likely complicated UTI ?? 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 At presentation, patient was mumbling and not answering any questions. 12/17 AM exam, patient was oriented x3 but unable to move her left lower extremity. Sensation was intact BLE. Patient does have a history of recurrent falls. BLE wounds, superficial laceration on right lateral calf [noted to be draining at admission] -->> 12/17 Wound Cx MSSA. Admitting UA negative for UTI but 12/17 U Cx positive for MDR E. Faecium, admitting wbc minimally elevated then has been wnl. Pt has been afebrile. Renal Fxns and electrolytes are normal. Patient started on Zosyn and doxycycline on 12/17 --> MDR E faecium in U Cx noted on 12/20 --> Zosyn DC'd 12/20, Vanc started 12/20, ID consulted. f/u ID eval and recs.-Appreciate input and recommendation Blood cultures have been negative Clinically not any better and remains extremely weak and lethargic Mental cloudiness seems to be improving We will continue with PT and OT-recommended rehab Clinically a little better and complains a few nonspecific symptoms including chest pain and shortness of breath Nonspecific chest pain with shortness of breath EKG is pending for now but troponin is negative compared with prior results Chest x-ray does not show any pulmonary edema but has cardiomegaly as before She was reassured Possible seizure Patient had ? shaky episode before coming to the hospital, concern for postictal 12/18 EEG: fairly normal-appearing awake/drowsy EEG. No epileptiform abnormalities observed. D/w neurology 12/19, concern for underlying seizure activity, on trial of keppra and continue to monitor. S/P LP 12/20: fluid analysis fairly wnl, meningoencephalitis panel pcr negative, f/u CSF C/S; CSF path neg for malignancy. Pt w/ periods of mental fluctuation and emotional lability. Psy evaluated 12/19, appreciate recs. Speech evaluated 12/17, cleared her for diet. Pt eating ok during her normal mentation periods Will continue Keppra orally Admitting imagings C-spine CT: No acute findings but with severe multilevel degenerative changes within the cervical spine. Head CT: Chronic finding of encephalomalacia of the inferior left frontal lobe. Involutional changes with ex vacuo ventriculomegaly. Pelvic x-ray: No acute findings. CXR: No acute findings. CTAP: No acute findings. F/u CT head 12/18: No new changes compared to prior. Palliative eval: appreciate palliative care input. Mild elevation of troponin: Troponin elevated at presentation, patient with no chest pain, likely chronic, will trend troponin. Admitting EKG with no acute changes. Troponin today's minimally elevated but way below as that of before Generalized weakness/ambulatory dysfunction in the left foot: PT/OT when stable-recommended rehab Amiodarone induced thyroiditis and hyperthyroidism: On methimazole and dexamethasone 1 Mg p.o. twice daily. Follows endocrinology. Paroxysmal A. fib: On metoprolol/Cardizem/digoxin/Eliquis. Heart rate remains controlled Other chronic medical conditions: Tachybradycardia syndrome [status post pacemaker], constipation [on a stool softener], history of TIA --->> continue with/resume home meds as and when appropriate. DVT prophylaxis: Eliquis Full code Dispo: PT/OT, CM to assist w/ DC plan. Accepted to [facility] but patient remains very lethargic to be transferred Accepted to [facility] and likely to be transferred tomorrow Admission and Anticipated Discharge Date Admission Date: December 17, 2021 Subjective 12/24/2021 The patient was seen and examined in medical telemetry unit She has been extremely weak and lethargic Denies any significant pain, nausea and or vomiting Does not seems to be confused 12/25/2021 The patient was seen and examined in medical telemetry unit She remains very weak and lethargic and asking for help on the time Complains nonspecific chest pain with shortness of breath Denies any other significant symptoms Review of Systems Review of Systems: All systems reviewed and are unremarkable except as noted below Musculoskeletal: Remains extremely weak and lethargic Physical Exam Physical Exam: Lying in bed without any acute distress except minimal short of breath And looks very anxious Constitutional: + ill appearing and average body habitus Eyes: PERRL, conjunctivae normal, anicteric sclerae ENMT: external ear and nose normal, oropharynx normal Neck: trachea midline, no thyromegaly Respiratory: + respiratory distress (Minimal respiratory distress at rest) Auscultation: + diminished lung sounds and + crackles (Occasional crackles at the bases) Cardiovascular: Rate/Rhythm: regular rate and regular rhythm; not tachycardic Heart Sounds: normal S1, normal S2 and + murmur Extremities: + edema (1+ edema bilaterally) Gastrointestinal (Abdomen): Inspection/Auscultation: normal bowel sounds; abdomen not distended Percussion/Palpation: abdomen soft; abdomen nontender Musculoskeletal: No acute arthritis in any joint Neurologic: Alert and awake. Generally very weak. Communicating normally. And allows asking for help Lymphatic: no cervical or axillary lymphadenopathy Results & Data Results & Data ([facility]) Vital Signs (Past 12 Hours) Vital Signs Temp Pulse Pulse Resp BP Pulse Ox O2 Del Method 12/25/21 11:19 36.5 C 72 20 121/69 96 Room Air 12/25/21 07:22 63 12/25/21 07:21 36.7 C 70 20 126/77 97 Room Air 12/25/21 03:25 36.7 C 69 20 152/78 H 97 Room Air Laboratory Results Short CBC 12/25/21 Range/Units 09:23 WBC 8.28 (4.8-10.8) K/ul Hgb 12.5 (12.0-16.0) g/dl Hct 37.4 (34.1-44.9) % Plt Count 146 (130-400) K/uL BMP 12/25/21 09:23 Sodium 139 Potassium 3.9 Chloride 104 Carbon Dioxide 29 BUN 16 Creatinine 0.32 L Glucose 128 H Calcium 8.4 L Medications Administered Current Inpatient Medications Acetaminophen (Acetaminophen 325 Mg Tab) 650 mg PO Q4H PRN PRN Reason: Pain or Fever Stop: 01/16/22 06:31 Last Admin: 12/24/21 15:47 Dose: 650 mg Alprazolam (Alprazolam 0.25 Mg Tablet) 0.25 mg PO HS PRN PRN Reason: anxiety Stop: 01/16/22 06:31 Apixaban (Apixaban 2.5 Mg Tab) 2.5 mg PO BID [facility] Stop: 01/16/22 08:59 Last Admin: 12/25/21 07:34 Dose: 2.5 mg Atorvastatin Calcium (Atorvastatin 10 Mg Tab) 10 mg PO DAILY [facility] Stop: 01/16/22 08:59 Last Admin: 12/25/21 07:35 Dose: 10 mg Dexamethasone (Dexamethasone 1 Mg Tab) 1 mg PO BID [facility] Stop: 01/16/22 08:59 Last Admin: 12/25/21 07:35 Dose: 1 mg Digoxin (Digoxin 0.125 Mg Tab) 0.125 mg PO DAILY@1600 [facility] Stop: 01/16/22 15:59 Last Admin: 12/24/21 15:48 Dose: 0.125 mg Diltiazem HCl (Diltiazem Hcl 30 Mg Tab) 30 mg PO BID [facility] Stop: 01/16/22 08:59 Last Admin: 12/25/21 07:34 Dose: 30 mg Docusate Sodium (Docusate Sodium 100 Mg Cap) 100 mg PO HS PRN PRN Reason: Constipation Stop: 01/16/22 06:31 Furosemide (Furosemide 20 Mg Tab) 20 mg PO 2XWK PRN PRN Reason: sweling & weight gain Stop: 01/16/22 06:31 Hydroxyzine HCl (Hydroxyzine Hcl 10 Mg Tab) 10 mg PO Q6 PRN PRN Reason: anxiety Stop: 01/16/22 06:31 Last Admin: 12/18/21 03:32 Dose: 10 mg Vancomycin HCl 1,000 mg/ (Sodium Chloride) 270 mls @ 200 mls/hr IV Q12H [facility]; Protocol Stop: 12/26/21 23:01 Last Infusion: 12/25/21 11:48 Dose: Infused Lactobacillus Acidophilus (Advanced Probiotic 1250 Mg Capsule) 2 cap PO DAILY [facility] Stop: 01/16/22 08:59 Last Admin: 12/25/21 07:34 Dose: 2 cap Levetiracetam (Levetiracetam 500 Mg Tab) 500 mg PO BID [facility] Stop: 01/24/22 20:59 Magnesium Hydroxide (Magnesium Hydroxide Susp 30 Ml Udc) 15 ml PO DAILY PRN PRN Reason: Constipation Stop: 01/16/22 06:31 Magnesium Oxide (Magnesium Oxide 400 Mg Tab) 400 mg PO QAM [facility] Stop: 01/16/22 08:59 Last Admin: 12/25/21 07:35 Dose: 400 mg Melatonin (Melatonin 3 Mg Tab) 9 mg PO HS PRN PRN Reason: Sleep Stop: 01/16/22 07:07 Last Admin: 12/23/21 20:25 Dose: 9 mg Methimazole (Methimazole 5 Mg Tablet) 10 mg PO BID [facility] Stop: 01/16/22 08:59 Last Admin: 12/25/21 07:35 Dose: 10 mg Metoprolol Succinate (Metoprolol Succ 50mg Ext Rel Tab) 75 mg PO QAM [facility] Stop: 01/16/22 08:59 Last Admin: 12/25/21 07:35 Dose: 75 mg Miscellaneous Information (Vancomycin Consult Active) 1 each N/A UD PRN PRN Reason: Consult Stop: 01/19/22 14:52 Nitroglycerin (Nitroglycerin Sl 0.4 Mg/Tab Tab) 0.4 mg SL UD PRN PRN Reason: Chest Pain Stop: 01/16/22 06:31 Olanzapine (Olanzapine 10 Mg/2.1 Ml Sdv) 2.5 mg IM Q4H PRN PRN Reason: Anxiety/Agitation Stop: 01/17/22 19:40 Last Admin: 12/18/21 19:56 Dose: 2.5 mg Ondansetron HCl (Ondansetron Inj 2 Mg/Ml 2 Ml Vial) 4 mg IV Q6H PRN PRN Reason: Nausea Stop: 01/16/22 06:31 Polyethylene Glycol (Polyethylene (Miralax) 17 Gm Pack) 17 gm PO DAILY PRN PRN Reason: constipation Stop: 01/16/22 06:31 Last Admin: 12/24/21 21:38 Dose: 17 gm Potassium Chloride (Potassium Chloride 10 Meq Tabcr) 10 meq PO DAILY [facility] Stop: 01/16/22 08:59 Last Admin: 12/25/21 07:38 Dose: 10 meq Senna/Docusate Sodium (Docusate Sodium/Senna 50/8.6mg Tab) 1 tab PO QAM [facility] Stop: 01/16/22 08:59 Last Admin: 12/25/21 07:38 Dose: 1 tab (1) Altered mental status Altered mental status type: delirium Qualified Code(s): R41.0 - Disorientation, unspecified
[2021-12-25] MEDS: DIGOXIN 0.125 MG TAB PO SCH (15:42)
[2021-12-25] MEDS: ACETAMINOPHEN 325 MG TAB PO PRN ×2 (15:42→20:42)
--- NOTE | 2021-12-25 16:58 | Electrocardiogram Report ---
Test Reason : Blood Pressure : / mmHG Vent. Rate : 083 BPM Atrial Rate : 083 BPM P-R Int : 144 ms QRS Dur : 134 ms QT Int : 392 ms P-R-T Axes : 038 -49 108 degrees QTc Int : 460 ms Normal sinus rhythm Possible Left atrial enlargement Left axis deviation Left bundle branch block Abnormal ECG When compared with ECG of 16-DEC-2021 22:24, Sinus rhythm has replaced Electronic atrial pacemaker Confirmed by Paulo Woodward [id number]) on 12/25/2021 4:58:29 PM Referred By: [facility] Confirmed By:Paulo Woodward
[2021-12-25 18:01] LABS: Cryptococcal Antigen Not Detected (Not Detected); EBV DNA Quant PCR Not Detected copies/mL; EBV DNA Quant Source CSF; Source CSF
[2021-12-25] MEDS: POLYETHYLENE (MIRALAX) 17 GM PACK PO SCH (18:51)
[2021-12-25] MEDS: levETIRAcetam 500 MG TAB PO SCH (20:40)
[2021-12-26] MEDS: VANCOMYCIN HCL 1,000 MG in SODIUM CHLORIDE 0.9% 250 ML IV SCH ×3 (00:49→22:26)
[2021-12-26] MEDS: ACETAMINOPHEN 325 MG TAB PO PRN ×4 (06:43→20:46)
[2021-12-26 09:27] LABS: Basophils # (auto) 0.04 K/uL (0-0.2); Basophils % (auto) 0.6 %; Immature Granulocytes # (auto) 0.56 K/uL (0.00-0.02); Immature Granulocytes % (auto) 8.5 %; Lymphocytes # (auto) 1.03 K/uL (1.2-3.4); Lymphocytes % (auto) 15.6 %; Monocytes # (auto) 0.13 K/uL (0.24-0.82); Neutrophils # (auto) 4.83 K/uL (1.4-6.5); Neutrophils % (auto) 73.3 %; Platelet Estimate Normal (Normal)
[2021-12-26 09:28] LABS: Hematocrit (blood only) 35.9 % (34.1-44.9); Hemoglobin 12.3 g/dl (12.0-16.0); Mean Corpuscular Hemoglobin 27.8 pg (25.0-34.0); Mean Corpuscular Hgb Conc 34.3 g/dL (32.0-36.0); Mean Platelet Volume 9.6 fL (9.4-12.3); Nucleated RBC # (auto) 0.02 K/uL (0-0); Nucleated RBC % (auto) 0.3 %; Platelet Count 141 K/uL (130-400); RDW Coefficient of Variation 16.9 % (11.5-14.5); RDW Standard Deviation 48.4 fL (36.4-46.3); Red Blood Count 4.43 M/uL (3.93-5.22); White Blood Count 6.59 K/ul (4.8-10.8)
[2021-12-26 09:31] LABS: Calcium 8.3 mg/dl (8.5-10.1); Creatinine Clr Calc Pharmacy 78.9 ml/min; Est GFR (Non-African American) 92.3 ml/min; Potassium 3.9 mmol/L (3.5-5.1)
[2021-12-26] MEDS: APIXABAN 2.5 MG TAB PO SCH ×2 (09:54→20:54)
[2021-12-26] MEDS: ATORVASTATIN 10 MG TAB PO SCH (09:54)
[2021-12-26] MEDS: dilTIAZem HCL 30 MG TAB PO SCH ×2 (09:54→20:54)
[2021-12-26] MEDS: dexAMETHasone 1 MG TAB PO SCH ×2 (09:54→20:54)
[2021-12-26] MEDS: methIMAzole 5 MG TABLET PO SCH ×2 (09:55→20:53)
[2021-12-26] MEDS: MAGNESIUM OXIDE 400 MG TAB PO SCH (09:55)
[2021-12-26] MEDS: ADVANCED PROBIOTIC 1250 MG CAPSULE PO SCH (09:55)
[2021-12-26] MEDS: METOPROLOL SUCC 50MG EXT REL TAB PO SCH (09:55)
[2021-12-26] MEDS: levETIRAcetam 500 MG TAB PO SCH ×2 (09:55→20:54)
[2021-12-26] MEDS: POLYETHYLENE (MIRALAX) 17 GM PACK PO SCH (09:56)
[2021-12-26] MEDS: POTASSIUM CHLORIDE 10 MEQ TABCR PO SCH (10:00)
[2021-12-26] MEDS: DOCUSATE SODIUM/SENNA 50/8.6MG TAB PO SCH (10:01)
--- NOTE | 2021-12-26 13:51 | Hospitalist Progress Note ---
Date of Service December 26, 2021 Assessment & Plan (1) Altered mental status: Plan: Overall deterioration of her condition Remains very weak and lethargic and apprehensive of any fall even she has not tried any activities Discussed with daughter in detail and informed that palliative care will reevaluate her for possible hospice care and/or comfort care down the line PT evaluated her today and I was told that she could not even participate in the physical therapy due to weakness Will talk to the daughter after palliative evaluation Plan 89-year-old lady with PMH of HTN, chronic LBBB, remote craniotomy with left supraclinoid aneurysm clipping, 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 Per her daughter, since last few weeks SNAILER her mental status is declining and she is not getting better. She is being managed for the following: Altered mental status: Multiple etiologies as above and is complicated by UTI and bilateral leg wounds BLE wounds Possible MDR UTI/ likely complicated UTI ?? colonization Patient presented with confusion, as per daughter patient has been declining since last few weeks SNAILER. At presentation, patient was mumbling and not answering any questions. 12/17 AM exam, patient was oriented x3 but unable to move her left lower extremity. Sensation was intact BLE. Patient does have a history of recurrent falls. BLE wounds, superficial laceration on right lateral calf [noted to be draining at admission] -->> 12/17 Wound Cx MSSA. Admitting UA negative for UTI but 12/17 U Cx positive for MDR E. Faecium, admitting wbc minimally elevated then has been wnl. Pt has been afebrile. Renal Fxns and electrolytes are normal. Patient started on Zosyn and doxycycline on 12/17 --> MDR E faecium in U Cx noted on 12/20 --> Zosyn DC'd 12/20, Vanc started 12/20, ID consulted. f/u ID eval and recs.-Appreciate input and recommendation Blood cultures have been negative Clinically not any better and remains extremely weak and lethargic Mental cloudiness seems to be improving We will continue with PT and OT-recommended rehab Clinically a little better and complains a few nonspecific symptoms including chest pain and shortness of breath Remains extremely weak and lethargic and was not being able to participate in physical therapy This is a significant deterioration from her days before Await palliative care evaluation and recommendation Nonspecific chest pain with shortness of breath EKG is pending for now but troponin is negative compared with prior results Chest x-ray does not show any pulmonary edema but has cardiomegaly as before She was reassured No more chest pain and/or palpitation Possible seizure Patient had ? shaky episode before coming to the hospital, concern for postictal 12/18 EEG: fairly normal-appearing awake/drowsy EEG. No epileptiform abnormalities observed. D/w neurology 12/19, concern for underlying seizure activity, on trial of keppra and continue to monitor. S/P LP 12/20: fluid analysis fairly wnl, meningoencephalitis panel pcr negative, f/u CSF C/S; CSF path neg for malignancy. Pt w/ periods of mental fluctuation and emotional lability. Psy evaluated 12/19, appreciate recs. Speech evaluated 12/17, cleared her for diet. Pt eating ok during her normal mentation periods Will continue Keppra orally Admitting imagings C-spine CT: No acute findings but with severe multilevel degenerative changes within the cervical spine. Head CT: Chronic finding of encephalomalacia of the inferior left frontal lobe. Involutional changes with ex vacuo ventriculomegaly. Pelvic x-ray: No acute findings. CXR: No acute findings. CTAP: No acute findings. F/u CT head 12/18: No new changes compared to prior. Palliative eval: appreciate palliative care input. Will have palliative reevaluation and possible hospice care and/or comfort care down the line This is discussed with the daughter today Mild elevation of troponin: Troponin elevated at presentation, patient with no chest pain, likely chronic, will trend troponin. Admitting EKG with no acute changes. Troponin today's minimally elevated but way below as that of before Generalized weakness/ambulatory dysfunction in the left foot: PT/OT when stable-recommended rehab Amiodarone induced thyroiditis and hyperthyroidism: On methimazole and dexamethasone 1 Mg p.o. twice daily. Follows endocrinology. Paroxysmal A. fib: On metoprolol/Cardizem/digoxin/Eliquis. Heart rate remains controlled Other chronic medical conditions: Tachybradycardia syndrome [status post pacemaker], constipation [on a stool softener], history of TIA --->> continue with/resume home meds as and when appropriate. DVT prophylaxis: Eliquis Full code Dispo: PT/OT, CM to assist w/ DC plan. Accepted to [facility] but patient remains very lethargic to be transferred Accepted to [facility] and likely to be transferred tomorrow Admission and Anticipated Discharge Date Admission Date: December 17, 2021 Subjective 12/24/2021 The patient was seen and examined in medical telemetry unit She has been extremely weak and lethargic Denies any significant pain, nausea and or vomiting Does not seems to be confused 12/25/2021 The patient was seen and examined in medical telemetry unit She remains very weak and lethargic and asking for help on the time Complains nonspecific chest pain with shortness of breath Denies any other significant symptoms 12/26/2021 The patient was seen and examined in medical telemetry unit in presence of the daughter She has been deteriorating and is giving up Remains very apprehensive of fall and injuring brain and other parts of the body Extremely weak and lethargic Very anxious Review of Systems Review of Systems: All systems reviewed and are unremarkable except as noted below Musculoskeletal: Remains extremely weak and lethargic Physical Exam Physical Exam: Lying in bed without any acute distress except minimal short of breath And looks very anxious Constitutional: + ill appearing and average body habitus Eyes: PERRL, conjunctivae normal, anicteric sclerae ENMT: external ear and nose normal, oropharynx normal Neck: trachea midline, no thyromegaly Respiratory: + respiratory distress (Minimal respiratory distress at rest) Auscultation: + diminished lung sounds and + crackles (Occasional crackles at the bases) Cardiovascular: Rate/Rhythm: regular rate and regular rhythm; not tachycardic Heart Sounds: normal S1, normal S2 and + murmur Extremities: + edema (1+ edema bilaterally) Gastrointestinal (Abdomen): Inspection/Auscultation: normal bowel sounds; abdomen not distended Percussion/Palpation: abdomen soft; abdomen nontender Musculoskeletal: No acute arthritis involving any joint Neurologic: Alert and awake. Lymphatic: no cervical or axillary lymphadenopathy Results & Data Results & Data ([facility]) Vital Signs (Past 12 Hours) Vital Signs Temp Pulse Pulse Resp BP Pulse Ox O2 Del Method 12/26/21 11:23 36.7 C 95 H 18 117/74 95 Room Air 12/26/21 07:56 66 12/26/21 06:31 36.8 C 75 18 124/73 96 Room Air 12/26/21 02:36 36.6 C 87 18 126/62 95 Room Air Laboratory Results Short CBC 12/26/21 Range/Units 08:33 WBC 6.59 (4.8-10.8) K/ul Hgb 12.3 (12.0-16.0) g/dl Hct 35.9 (34.1-44.9) % Plt Count 141 (130-400) K/uL BMP 12/26/21 08:33 Sodium 137 Potassium 3.9 Chloride 103 Carbon Dioxide 26 BUN 22 Creatinine 0.40 L Glucose 195 H Calcium 8.3 L Medications Administered Current Inpatient Medications Acetaminophen (Acetaminophen 325 Mg Tab) 650 mg PO Q4H PRN PRN Reason: Pain or Fever Stop: 01/16/22 06:31 Last Admin: 12/26/21 13:13 Dose: 650 mg Alprazolam (Alprazolam 0.25 Mg Tablet) 0.25 mg PO HS PRN PRN Reason: anxiety Stop: 01/16/22 06:31 Apixaban (Apixaban 2.5 Mg Tab) 2.5 mg PO BID BERNARDINO Stop: 01/16/22 08:59 Last Admin: 12/26/21 09:54 Dose: 2.5 mg Atorvastatin Calcium (Atorvastatin 10 Mg Tab) 10 mg PO DAILY B[facility]ARDINO Stop: 01/16/22 08:59 Last Admin: 12/26/21 09:54 Dose: 10 mg Dexamethasone (Dexamethasone 1 Mg Tab) 1 mg PO BID BERNARDINO Stop: 01/16/22 08:59 Last Admin: 12/26/21 09:54 Dose: 1 mg Digoxin (Digoxin 0.125 Mg Tab) 0.125 mg PO DAILY@1600 [facility]ARDINO Stop: 01/16/22 15:59 Last Admin: 12/25/21 15:42 Dose: 0.125 mg Diltiazem HCl (Diltiazem Hcl 30 Mg Tab) 30 mg PO BID BERNARDINO Stop: 01/16/22 08:59 Last Admin: 12/26/21 09:54 Dose: 30 mg Docusate Sodium (Docusate Sodium 100 Mg Cap) 100 mg PO HS PRN PRN Reason: Constipation Stop: 01/16/22 06:31 Furosemide (Furosemide 20 Mg Tab) 20 mg PO 2XWK PRN PRN Reason: sweling & weight gain Stop: 01/16/22 06:31 Hydroxyzine HCl (Hydroxyzine Hcl 10 Mg Tab) 10 mg PO Q6 PRN PRN Reason: anxiety Stop: 01/16/22 06:31 Last Admin: 12/18/21 03:32 Dose: 10 mg Vancomycin HCl 1,000 mg/ (Sodium Chloride) 270 mls @ 200 mls/hr IV Q12H [facility]; Protocol Stop: 12/26/21 23:01 Last Infusion: 12/26/21 12:45 Dose: Infused Lactobacillus Acidophilus (Advanced Probiotic 1250 Mg Capsule) 2 cap PO DAILY [facility] Stop: 01/16/22 08:59 Last Admin: 12/26/21 09:55 Dose: 2 cap Levetiracetam (Levetiracetam 500 Mg Tab) 500 mg PO BID [facility]ARDINO Stop: 01/24/22 20:59 Last Admin: 12/26/21 09:55 Dose: 500 mg Magnesium Hydroxide (Magnesium Hydroxide Susp 30 Ml Udc) 15 ml PO DAILY PRN PRN Reason: Constipation Stop: 01/16/22 06:31 Magnesium Oxide (Magnesium Oxide 400 Mg Tab) 400 mg PO QAM [facility] Stop: 01/16/22 08:59 Last Admin: 12/26/21 09:55 Dose: 400 mg Melatonin (Melatonin 3 Mg Tab) 9 mg PO HS PRN PRN Reason: Sleep Stop: 01/16/22 07:07 Last Admin: 12/23/21 20:25 Dose: 9 mg Methimazole (Methimazole 5 Mg Tablet) 10 mg PO BID B[facility]ARDINO Stop: 01/16/22 08:59 Last Admin: 12/26/21 09:55 Dose: 10 mg Metoprolol Succinate (Metoprolol Succ 50mg Ext Rel Tab) 75 mg PO QAM [facility] Stop: 01/16/22 08:59 Last Admin: 12/26/21 09:55 Dose: 75 mg Miscellaneous Information (Vancomycin Consult Active) 1 each N/A UD PRN PRN Reason: Consult Stop: 01/19/22 14:52 Nitroglycerin (Nitroglycerin Sl 0.4 Mg/Tab Tab) 0.4 mg SL UD PRN PRN Reason: Chest Pain Stop: 01/16/22 06:31 Olanzapine (Olanzapine 10 Mg/2.1 Ml Sdv) 2.5 mg IM Q4H PRN PRN Reason: Anxiety/Agitation Stop: 01/17/22 19:40 Last Admin: 12/18/21 19:56 Dose: 2.5 mg Ondansetron HCl (Ondansetron Inj 2 Mg/Ml 2 Ml Vial) 4 mg IV Q6H PRN PRN Reason: Nausea Stop: 01/16/22 06:31 Polyethylene Glycol (Polyethylene (Miralax) 17 Gm Pack) 17 gm PO DAILY [facility] Stop: 01/24/22 20:59 Last Admin: 12/26/21 09:56 Dose: 17 gm Potassium Chloride (Potassium Chloride 10 Meq Tabcr) 10 meq PO DAILY [facility] Stop: 01/16/22 08:59 Last Admin: 12/26/21 10:00 Dose: 10 meq Senna/Docusate Sodium (Docusate Sodium/Senna 50/8.6mg Tab) 1 tab PO QAM [facility] Stop: 01/16/22 08:59 Last Admin: 12/26/21 10:01 Dose: 1 tab (1) Altered mental status Altered mental status type: delirium Qualified Code(s): R41.0 - Disorientation, unspecified
[2021-12-26 16:01] LABS: CSF, LDH 18 U/L (<=25); Lyme DNA PCR CSF or Synovial Not Detected (Not Detected); Lyme DNA Source CSF
[2021-12-26] MEDS: DIGOXIN 0.125 MG TAB PO SCH (16:54)
--- NOTE | 2021-12-26 17:11 | Palliative Care Progress Note ---
Date of Service December 26, 2021 Assessment & Plan (1) Dyspnea: Plan: Morphine added prn for shortness of breath. (2) Anxiety: Plan: She is asking for her daughter who is on the road, returning to her home in [place]. Her will be coming in to see her . (3) Palliative care encounter: Plan: Geni appears visibly upset. When I asked her what was wrong, she told me that she's worried about her daughter. On further discussion, she tells me that she is worried about Marianela who has recently lost her son to pancreatic cancer. Geni is worried about how Marianela will cope if she dies. I asked her if she felt like she were getting near her dying time and she nodded. She denies fears or worries about the dying process. I spoke with Marianela on the phone about my conversation with her mother and her overall decline. Marianeal is tearful but recognizes that Geni is not improving and likely to . We talked about options to continue current plan though Geni is not stable for return to [facility] for rehab. She could return to [facility] with hospice care. Marianela asked me to call Ed and discuss with him. I explained Geni's condition and the discussion that we had with him. He and Marianela will discuss together later today about whether they would like to shift to comfort care. Admission and Anticipated Discharge Date Admission Date: December 17, 2021 Subjective Mental status appears to be more clear today but Geni is very weak. She is tearful and complains about feeling anxious. Review of Systems Review of Systems: ESAS Pain 0/3 Dyspnea 2/3 Nausea 0/3 DRowsiness 1/3 Anxiety 2/3 PPS 30% Physical Exam Constitutional: + ill appearing ENMT: Mouth: oral mucous membranes not dry Respiratory: + uses accessory muscles and + tachypneic Cardiovascular: Rate/Rhythm: regular rate Skin: warm and dry Neurologic: awake; not confused Results & Data ([facility]) Vital Signs (Past 12 Hours) Vital Signs Temp Pulse Pulse Resp BP Pulse Ox O2 Del Method 12/26/21 16:54 83 12/26/21 16:09 81 12/26/21 14:57 96.8 F L 75 18 101/52 L 93 Room Air 12/26/21 11:23 98.1 F 95 H 18 117/74 95 Room Air 12/26/21 07:56 66 12/26/21 06:31 98.2 F 75 18 124/73 96 Room Air PG Care Time/CCT Total # of Minutes Spent Total Time Spent: 40 Total Time Spent with Patient: Total time spent is greater than 50% in coordination of care (as documented) at patient's floor/unit and/or counseling patient:symptom management, goals of care, patient and family education and support Coding Level of Care Code 76088 Subseq Hosp Care Lvl 3 Diagnoses Dyspnea R06.00 Anxiety F41.9 Palliative care encounter Z51.5
[2021-12-26] MEDS: ALPRAZolam 0.25 MG TABLET PO PRN (20:46)
[2021-12-26] MEDS ORDERED: HYDROmorphone INJ 0.5 MG/0.5 ML SYR IV STA (21:20)
[2021-12-27] MEDS: ACETAMINOPHEN 325 MG TAB PO PRN ×2 (03:45→14:04)
[2021-12-27] MEDS: POLYETHYLENE (MIRALAX) 17 GM PACK PO SCH (08:13)
[2021-12-27] MEDS: ATORVASTATIN 10 MG TAB PO SCH (08:14)
[2021-12-27] MEDS: METOPROLOL SUCC 50MG EXT REL TAB PO SCH (08:14)
[2021-12-27] MEDS: ADVANCED PROBIOTIC 1250 MG CAPSULE PO SCH (08:14)
[2021-12-27] MEDS: MAGNESIUM OXIDE 400 MG TAB PO SCH (08:14)
[2021-12-27] MEDS: levETIRAcetam 500 MG TAB PO SCH ×2 (08:17→19:27)
[2021-12-27] MEDS: dilTIAZem HCL 30 MG TAB PO SCH ×2 (08:17→19:29)
[2021-12-27] MEDS: methIMAzole 5 MG TABLET PO SCH ×2 (08:17→19:29)
[2021-12-27] MEDS: dexAMETHasone 1 MG TAB PO SCH ×2 (08:17→19:28)
[2021-12-27] MEDS: APIXABAN 2.5 MG TAB PO SCH ×2 (08:17→19:27)
[2021-12-27] MEDS: DOCUSATE SODIUM/SENNA 50/8.6MG TAB PO SCH (08:19)
[2021-12-27] MEDS: POTASSIUM CHLORIDE 10 MEQ TABCR PO SCH (08:19)
--- NOTE | 2021-12-27 14:14 | Hospitalist Progress Note ---
Date of Service December 27, 2021 Assessment & Plan (1) Altered mental status: Plan: Overall deterioration of her condition Remains very weak and lethargic and apprehensive of any fall even she has not tried any activities Discussed with daughter in detail and informed that palliative care will reevaluate her for possible hospice care and/or comfort care down the line PT evaluated her today and I was told that she could not even participate in the physical therapy due to weakness Will talk to the daughter after palliative evaluation Appreciate palliative care evaluation and recommendation The outpatient case manager is working on placement in skilled care facility and possible transfer to hospice care from there Awaiting placement Plan 89-year-old lady with PMH of HTN, chronic LBBB, remote craniotomy with left supraclinoid aneurysm clipping, 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 Per her daughter, since last few weeks [employer] her mental status is declining and she is not getting better. She is being managed for the following: Altered mental status: Multiple etiologies as above and is complicated by UTI and bilateral leg wounds BLE wounds Possible MDR UTI/ likely complicated UTI ?? colonization Patient presented with confusion, as per daughter patient has been declining since last few weeks [employer]. At presentation, patient was mumbling and not answering any questions. 11 AM exam, patient was oriented x3 but unable to move her left lower extremity. Sensation was intact BLE. Patient does have a history of recurrent falls. BLE wounds, superficial laceration on right lateral calf [noted to be draining at admission] -->> 12/17 Wound Cx MSSA. Admitting UA negative for UTI but 12/17 U Cx positive for MDR E. Faecium, admitting wbc minimally elevated then has been wnl. Pt has been afebrile. Renal Fxns and electrolytes are normal. Patient started on Zosyn and doxycycline on 12/17 --> MDR E faecium in U Cx noted on 12/20 --> Zosyn DC'd 12/20, Vanc started 12/20, ID consulted. f/u ID eval and recs.-Appreciate input and recommendation Blood cultures have been negative Clinically not any better and remains extremely weak and lethargic Mental cloudiness seems to be improving We will continue with PT and OT-recommended rehab Clinically a little better and complains a few nonspecific symptoms including chest pain and shortness of breath Remains extremely weak and lethargic and was not being able to participate in physical therapy This is a significant deterioration from her days before Await palliative care evaluation and recommendation-as above Nonspecific chest pain with shortness of breath EKG is pending for now but troponin is negative compared with prior results Chest x-ray does not show any pulmonary edema but has cardiomegaly as before She was reassured No more chest pain and/or palpitation Possible seizure Patient had ? shaky episode before coming to the hospital, concern for postictal 12/18 EEG: fairly normal-appearing awake/drowsy EEG. No epileptiform abnormalities observed. D/w neurology 12/19, concern for underlying seizure activity, on trial of keppra and continue to monitor. S/P LP 12/20: fluid analysis fairly wnl, meningoencephalitis panel pcr negative, f/u CSF C/S; CSF path neg for malignancy. Pt w/ periods of mental fluctuation and emotional lability. Psy evaluated 12/19, appreciate recs. Speech evaluated 12/17, cleared her for diet. Pt eating ok during her normal mentation periods Will continue Keppra orally Admitting imagings C-spine CT: No acute findings but with severe multilevel degenerative changes within the cervical spine. Head CT: Chronic finding of encephalomalacia of the inferior left frontal lobe. Involutional changes with ex vacuo ventriculomegaly. Pelvic x-ray: No acute findings. CXR: No acute findings. CTAP: No acute findings. F/u CT head 12/18: No new changes compared to prior. Palliative eval: appreciate palliative care input. Will have palliative reevaluation and possible hospice care and/or comfort care down the line This is discussed with the daughter today Has had palliative reevaluation and detailed discussion with the family members Mild elevation of troponin: Troponin elevated at presentation, patient with no chest pain, likely chronic, will trend troponin. Admitting EKG with no acute changes. Troponin today's minimally elevated but way below as that of before Generalized weakness/ambulatory dysfunction in the left foot: PT/OT when stable-recommended rehab Amiodarone induced thyroiditis and hyperthyroidism: On methimazole and dexamethasone 1 Mg p.o. twice daily. Follows endocrinology. Paroxysmal A. fib: On metoprolol/Cardizem/digoxin/Eliquis. Heart rate remains controlled Other chronic medical conditions: Tachybradycardia syndrome [status post pacemaker], constipation [on a stool softener], history of TIA --->> continue with/resume home meds as and when appropriate. DVT prophylaxis: Eliquis Full code Dispo: PT/OT, CM to assist w/ DC plan. Accepted to [facility] but patient remains very lethargic to be transferred vaccine manager is working for placement Admission and Anticipated Discharge Date Admission Date: December 17, 2021 Subjective 12/24/2021 The patient was seen and examined in medical telemetry unit She has been extremely weak and lethargic Denies any significant pain, nausea and or vomiting Does not seems to be confused 12/25/2021 The patient was seen and examined in medical telemetry unit She remains very weak and lethargic and asking for help on the time Complains nonspecific chest pain with shortness of breath Denies any other significant symptoms 12/26/2021 The patient was seen and examined in medical telemetry unit in presence of the daughter She has been deteriorating and is giving up Remains very apprehensive of fall and injuring brain and other parts of the body Extremely weak and lethargic Very anxious 12/27/2021 The patient was seen and examined in medical telemetry unit She has been a little better today and asking for help Complains minimal pain in the abdomen but otherwise no other significant symptoms Remains extremely weak and lethargic to participate with physical therapy Review of Systems Review of Systems: All systems reviewed and are unremarkable except as noted below Musculoskeletal: Remains extremely weak and lethargic Physical Exam Physical Exam: Lying in bed without any acute distress except minimal short of breath And looks very anxious Constitutional: + ill appearing and average body habitus Eyes: PERRL, conjunctivae normal, anicteric sclerae ENMT: external ear and nose normal, oropharynx normal Neck: trachea midline, no thyromegaly Respiratory: + respiratory distress (Minimal respiratory distress at rest) Auscultation: + diminished lung sounds and + crackles (Occasional crackles at the bases) Cardiovascular: Rate/Rhythm: regular rate and regular rhythm; not tachycardic Heart Sounds: normal S1, normal S2 and + murmur Extremities: + edema (1+ edema bilaterally) Gastrointestinal (Abdomen): Inspection/Auscultation: normal bowel sounds; abdomen not distended Percussion/Palpation: abdomen soft; abdomen nontender Musculoskeletal: No acutely inflamed joint but movement of the joints has some pain Neurologic: Alert and awake. Pleasantly confused. Very weak and lethargic. Lymphatic: no cervical or axillary lymphadenopathy Results & Data Results & Data ([facility]) Vital Signs (Past 12 Hours) Vital Signs Temp Pulse Resp BP Pulse Ox O2 Del Method 12/27/21 07:00 Room Air 12/27/21 11:21 36.5 C 74 20 126/72 96 Room Air 12/27/21 08:01 36.5 C 69 16 131/72 97 Room Air 12/27/21 03:26 36.4 C L 74 18 101/61 97 Room Air Medications Administered Current Inpatient Medications Acetaminophen (Acetaminophen 325 Mg Tab) 650 mg PO Q4H PRN PRN Reason: Pain or Fever Stop: 01/16/22 06:31 Last Admin: 12/27/21 14:04 Dose: 650 mg Alprazolam (Alprazolam 0.25 Mg Tablet) 0.25 mg PO HS PRN PRN Reason: anxiety Stop: 01/16/22 06:31 Last Admin: 12/26/21 20:46 Dose: 0.25 mg Apixaban (Apixaban 2.5 Mg Tab) 2.5 mg PO BID [facility] Stop: 01/16/22 08:59 Last Admin: 12/27/21 08:17 Dose: 2.5 mg Atorvastatin Calcium (Atorvastatin 10 Mg Tab) 10 mg PO DAILY [facility] Stop: 01/16/22 08:59 Last Admin: 12/27/21 08:14 Dose: 10 mg Dexamethasone (Dexamethasone 1 Mg Tab) 1 mg PO BID [facility] Stop: 01/16/22 08:59 Last Admin: 12/27/21 08:17 Dose: 1 mg Digoxin (Digoxin 0.125 Mg Tab) 0.125 mg PO DAILY@1600 [facility] Stop: 01/16/22 15:59 Last Admin: 12/26/21 16:54 Dose: 0.125 mg Diltiazem HCl (Diltiazem Hcl 30 Mg Tab) 30 mg PO BID [facility] Stop: 01/16/22 08:59 Last Admin: 12/27/21 08:17 Dose: 30 mg Docusate Sodium (Docusate Sodium 100 Mg Cap) 100 mg PO HS PRN PRN Reason: Constipation Stop: 01/16/22 06:31 Furosemide (Furosemide 20 Mg Tab) 20 mg PO 2XWK PRN PRN Reason: sweling & weight gain Stop: 01/16/22 06:31 Hydroxyzine HCl (Hydroxyzine Hcl 10 Mg Tab) 10 mg PO Q6 PRN PRN Reason: anxiety Stop: 01/16/22 06:31 Last Admin: 12/18/21 03:32 Dose: 10 mg Lactobacillus Acidophilus (Advanced Probiotic 1250 Mg Capsule) 2 cap PO DAILY [facility] Stop: 01/16/22 08:59 Last Admin: 12/27/21 08:14 Dose: 2 cap Levetiracetam (Levetiracetam 500 Mg Tab) 500 mg PO BID [facility] Stop: 01/24/22 20:59 Last Admin: 12/27/21 08:17 Dose: 500 mg Magnesium Hydroxide (Magnesium Hydroxide Susp 30 Ml Udc) 15 ml PO DAILY PRN PRN Reason: Constipation Stop: 01/16/22 06:31 Magnesium Oxide (Magnesium Oxide 400 Mg Tab) 400 mg PO QAM [facility] Stop: 01/16/22 08:59 Last Admin: 12/27/21 08:14 Dose: 400 mg Melatonin (Melatonin 3 Mg Tab) 9 mg PO HS PRN PRN Reason: Sleep Stop: 01/16/22 07:07 Last Admin: 12/23/21 20:25 Dose: 9 mg Methimazole (Methimazole 5 Mg Tablet) 10 mg PO BID [facility] Stop: 01/16/22 08:59 Last Admin: 12/27/21 08:17 Dose: 10 mg Metoprolol Succinate (Metoprolol Succ 50mg Ext Rel Tab) 75 mg PO QAM [facility] Stop: 01/16/22 08:59 Last Admin: 12/27/21 08:14 Dose: 75 mg Morphine Sulfate (Morphine Sulfate 2 Mg/Ml Carp) 2 mg IV Q2H PRN PRN Reason: Pain or dyspnea Stop: 01/09/22 14:25 Nitroglycerin (Nitroglycerin Sl 0.4 Mg/Tab Tab) 0.4 mg SL UD PRN PRN Reason: Chest Pain Stop: 01/16/22 06:31 Olanzapine (Olanzapine 10 Mg/2.1 Ml Sdv) 2.5 mg IM Q4H PRN PRN Reason: Anxiety/Agitation Stop: 01/17/22 19:40 Last Admin: 12/18/21 19:56 Dose: 2.5 mg Ondansetron HCl (Ondansetron Inj 2 Mg/Ml 2 Ml Vial) 4 mg IV Q6H PRN PRN Reason: Nausea Stop: 01/16/22 06:31 Polyethylene Glycol (Polyethylene (Miralax) 17 Gm Pack) 17 gm PO DAILY [facility] Stop: 01/24/22 20:59 Last Admin: 12/27/21 08:13 Dose: 17 gm Potassium Chloride (Potassium Chloride 10 Meq Tabcr) 10 meq PO DAILY [facility] Stop: 01/16/22 08:59 Last Admin: 12/27/21 08:19 Dose: 10 meq Senna/Docusate Sodium (Docusate Sodium/Senna 50/8.6mg Tab) 1 tab PO QAM [facility] Stop: 01/16/22 08:59 Last Admin: 12/27/21 08:19 Dose: 1 tab (1) Altered mental status Altered mental status type: delirium Qualified Code(s): R41.0 - Disorientation, unspecified
[2021-12-27] MEDS ORDERED: LORazepam 0.25 MG in SYRINGE 0 ML IV STA (14:18)
[2021-12-27] MEDS ORDERED: HYDROmorphone INJ 0.5 MG/0.5 ML SYR IV STA (14:35)
--- NOTE | 2021-12-27 16:10 | Palliative Care Progress Note ---
Date of Service December 27, 2021 Assessment & Plan (1) Palliative care encounter: Plan: Attempted to see pt earlier today, she was lethargic, no family present. Chart reviewed, family deciding on ?comfort care. I am happy to help with family meeting if needed. No charge submitted. Adriane Driver DNP Clinical Director, Palliative Medicine Admission and Anticipated Discharge Date Admission Date: December 17, 2021 Subjective Brief note, see below Results & Data ([facility]) Vital Signs (Past 12 Hours) Vital Signs Temp Pulse Resp BP Pulse Ox O2 Del Method 12/27/21 07:00 Room Air 12/27/21 11:21 36.5 C 74 20 126/72 96 Room Air 12/27/21 08:01 36.5 C 69 16 131/72 97 Room Air PG Care Time/CCT Total # of Minutes Spent Total Time Spent with Patient: Total time spent is greater than 50% in coordination of care (as documented) at patient's floor/unit and/or counseling patient: Coding Level of Care Code None Diagnoses Palliative care encounter Z51.5
[2021-12-27] MEDS: DIGOXIN 0.125 MG TAB PO SCH (16:25)
--- NOTE | 2021-12-28 07:46 | Electrocardiogram Report ---
Test Reason : Blood Pressure : / mmHG Vent. Rate : 092 BPM Atrial Rate : 092 BPM P-R Int : 202 ms QRS Dur : 144 ms QT Int : 394 ms P-R-T Axes : 084 -45 085 degrees QTc Int : 487 ms Atrial-paced rhythm Left axis deviation Left bundle branch block Abnormal ECG When compared with ECG of 25-DEC-2021 13:57, Electronic atrial pacemaker has replaced Sinus rhythm Confirmed by Bert Abbasi ([id number]) on 12/28/2021 7:46:14 AM Referred By: [facility] Confirmed By:Bert Abbasi
[2021-12-28] MEDS: methIMAzole 5 MG TABLET PO SCH ×2 (08:23→22:52)
[2021-12-28] MEDS: dexAMETHasone 1 MG TAB PO SCH ×2 (08:23→22:53)
[2021-12-28] MEDS: MAGNESIUM OXIDE 400 MG TAB PO SCH (08:23)
[2021-12-28] MEDS: ATORVASTATIN 10 MG TAB PO SCH (08:23)
[2021-12-28] MEDS: POLYETHYLENE (MIRALAX) 17 GM PACK PO SCH (08:23)
[2021-12-28] MEDS: dilTIAZem HCL 30 MG TAB PO SCH ×2 (08:23→22:52)
[2021-12-28] MEDS: APIXABAN 2.5 MG TAB PO SCH ×2 (08:23→22:52)
[2021-12-28] MEDS: levETIRAcetam 500 MG TAB PO SCH ×2 (08:23→22:52)
[2021-12-28] MEDS: METOPROLOL SUCC 50MG EXT REL TAB PO SCH (08:23)
[2021-12-28] MEDS: ADVANCED PROBIOTIC 1250 MG CAPSULE PO SCH (08:23)
[2021-12-28] MEDS: POTASSIUM CHLORIDE 10 MEQ TABCR PO SCH (08:28)
[2021-12-28] MEDS: DOCUSATE SODIUM/SENNA 50/8.6MG TAB PO SCH (08:28)
[2021-12-28] MEDS: ACETAMINOPHEN 325 MG TAB PO PRN ×2 (10:20→16:25)
--- NOTE | 2021-12-28 15:30 | Hospitalist Progress Note ---
Date of Service December 28, 2021 Assessment & Plan (1) Altered mental status: Plan: Overall deterioration of her condition Remains very weak and lethargic and apprehensive of any fall even she has not tried any activities Discussed with daughter in detail and informed that palliative care will reevaluate her for possible hospice care and/or comfort care down the line PT evaluated her today and I was told that she could not even participate in the physical therapy due to weakness Will talk to the daughter after palliative evaluation Appreciate palliative care evaluation and recommendation The manager case management is working on placement in skilled care facility and possible transfer to hospice care from there Awaiting placement Remains stable but very depressed and anxious Plan 89-year-old lady with PMH of HTN, chronic LBBB, remote craniotomy with left supraclinoid aneurysm clipping, 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 Per her daughter, since last few weeks [place] her mental status is declining and she is not getting better. She is being managed for the following: Altered mental status: Multiple etiologies as above and is complicated by UTI and bilateral leg wounds BLE wounds Possible MDR UTI/ likely complicated UTI ?? colonization Patient presented with confusion, as per daughter patient has been declining since last few weeks [place]. At presentation, patient was mumbling and not answering any questions. 11 AM exam, patient was oriented x3 but unable to move her left lower extremity. Sensation was intact BLE. Patient does have a history of recurrent falls. BLE wounds, superficial laceration on right lateral calf [noted to be draining at admission] -->> 12/17 Wound Cx MSSA. Admitting UA negative for UTI but 12/17 U Cx positive for MDR E. Faecium, admitting wbc minimally elevated then has been wnl. Pt has been afebrile. Renal Fxns and electrolytes are normal. Patient started on Zosyn and doxycycline on 12/17 --> MDR E faecium in U Cx noted on 12/20 --> Zosyn DC'd 12/20, Vanc started 12/20, ID consulted. f/u ID eval and recs.-Appreciate input and recommendation Blood cultures have been negative Clinically not any better and remains extremely weak and lethargic Mental cloudiness seems to be improving We will continue with PT and OT-recommended rehab Clinically a little better and complains a few nonspecific symptoms including chest pain and shortness of breath Remains extremely weak and lethargic and was not being able to participate in physical therapy This is a significant deterioration from her days before Await palliative care evaluation and recommendation-as above Nonspecific chest pain with shortness of breath EKG is pending for now but troponin is negative compared with prior results Chest x-ray does not show any pulmonary edema but has cardiomegaly as before She was reassured No more chest pain and/or palpitation Possible seizure Patient had ? shaky episode before coming to the hospital, concern for postictal 12/18 EEG: fairly normal-appearing awake/drowsy EEG. No epileptiform abnormalities observed. D/w neurology 12/19, concern for underlying seizure activity, on trial of keppra and continue to monitor. S/P LP 12/20: fluid analysis fairly wnl, meningoencephalitis panel pcr negative, f/u CSF C/S; CSF path neg for malignancy. Pt w/ periods of mental fluctuation and emotional lability. Psy evaluated 12/19, appreciate recs. Speech evaluated 12/17, cleared her for diet. Pt eating ok during her normal mentation periods Will continue Keppra orally Admitting imagings C-spine CT: No acute findings but with severe multilevel degenerative changes within the cervical spine. Head CT: Chronic finding of encephalomalacia of the inferior left frontal lobe. Involutional changes with ex vacuo ventriculomegaly. Pelvic x-ray: No acute findings. CXR: No acute findings. CTAP: No acute findings. F/u CT head 12/18: No new changes compared to prior. Palliative eval: appreciate palliative care input. Will have palliative reevaluation and possible hospice care and/or comfort care down the line This is discussed with the daughter today Has had palliative reevaluation and detailed discussion with the family members Mild elevation of troponin: Troponin elevated at presentation, patient with no chest pain, likely chronic, will trend troponin. Admitting EKG with no acute changes. Troponin today's minimally elevated but way below as that of before Generalized weakness/ambulatory dysfunction in the left foot: PT/OT when stable-recommended rehab Amiodarone induced thyroiditis and hyperthyroidism: On methimazole and dexamethasone 1 Mg p.o. twice daily. Follows endocrinology. Paroxysmal A. fib: On metoprolol/Cardizem/digoxin/Eliquis. Heart rate remains controlled Other chronic medical conditions: Tachybradycardia syndrome [status post pacemaker], constipation [on a stool softener], history of TIA --->> continue with/resume home meds as and when appropriate. DVT prophylaxis: Eliquis Full code Dispo: PT/OT, CM to assist w/ DC plan. Accepted to [facility] but patient remains very lethargic to be transferred Awaiting placement Admission and Anticipated Discharge Date Admission Date: December 17, 2021 Subjective 12/24/2021 The patient was seen and examined in medical telemetry unit She has been extremely weak and lethargic Denies any significant pain, nausea and or vomiting Does not seems to be confused 12/25/2021 The patient was seen and examined in medical telemetry unit She remains very weak and lethargic and asking for help on the time Complains nonspecific chest pain with shortness of breath Denies any other significant symptoms 12/26/2021 The patient was seen and examined in medical telemetry unit in presence of the daughter She has been deteriorating and is giving up Remains very apprehensive of fall and injuring brain and other parts of the body Extremely weak and lethargic Very anxious 12/27/2021 The patient was seen and examined in medical telemetry unit She has been a little better today and asking for help Complains minimal pain in the abdomen but otherwise no other significant symp toms Remains extremely weak and lethargic to participate with physical therapy 12/28/2021 The patient was seen and examined in medical telemetry unit She remains apprehensive Not in any apparent distress She wants to talk to Marianela, her daughter Review of Systems Review of Systems: All systems reviewed and are unremarkable except as noted below Musculoskeletal: Remains extremely weak and lethargic Physical Exam Physical Exam: Lying in bed without any acute distress except minimal short of breath And looks very anxious Constitutional: + ill appearing and average body habitus Eyes: PERRL, conjunctivae normal, anicteric sclerae ENMT: external ear and nose normal, oropharynx normal Neck: trachea midline, no thyromegaly Respiratory: + respiratory distress (Minimal respiratory distress at rest) Auscultation: + diminished lung sounds and + crackles (Occasional crackles at the bases) Cardiovascular: Rate/Rhythm: regular rate and regular rhythm; not tachycardic Heart Sounds: normal S1, normal S2 and + murmur Extremities: + edema (1+ edema bilaterally) Gastrointestinal (Abdomen): Inspection/Auscultation: normal bowel sounds; abdomen not distended Percussion/Palpation: abdomen soft; abdomen nontender Lymphatic: no cervical or axillary lymphadenopathy Results & Data Results & Data ([facility]) Vital Signs (Past 12 Hours) Vital Signs Temp Pulse Pulse Resp BP Pulse Ox O2 Del Method 12/28/21 15:24 67 12/28/21 15:03 36.6 C 66 18 102/65 96 Room Air 12/28/21 12:29 Room Air 12/28/21 11:05 36.5 C 75 16 100/65 98 Room Air 12/28/21 07:54 36.6 C 78 20 157/63 H 91 Room Air 12/28/21 07:20 66 Medications Administered Current Inpatient Medications Acetaminophen (Acetaminophen 325 Mg Tab) 650 mg PO Q4H PRN PRN Reason: Pain or Fever Stop: 01/16/22 06:31 Last Admin: 12/28/21 10:20 Dose: 650 mg Alprazolam (Alprazolam 0.25 Mg Tablet) 0.25 mg PO HS PRN PRN Reason: anxiety Stop: 01/16/22 06:31 Last Admin: 12/26/21 20:46 Dose: 0.25 mg Apixaban (Apixaban 2.5 Mg Tab) 2.5 mg PO BID [facility] Stop: 01/16/22 08:59 Last Admin: 12/28/21 08:23 Dose: 2.5 mg Atorvastatin Calcium (Atorvastatin 10 Mg Tab) 10 mg PO DAILY [facility] Stop: 01/16/22 08:59 Last Admin: 12/28/21 08:23 Dose: 10 mg Dexamethasone (Dexamethasone 1 Mg Tab) 1 mg PO BID [facility]ARDINO Stop: 01/16/22 08:59 Last Admin: 12/28/21 08:23 Dose: 1 mg Digoxin (Digoxin 0.125 Mg Tab) 0.125 mg PO DAILY@1600 [facility] Stop: 01/16/22 15:59 Last Admin: 12/27/21 16:25 Dose: 0.125 mg Diltiazem HCl (Diltiazem Hcl 30 Mg Tab) 30 mg PO BID B[facility]ARDINO Stop: 01/16/22 08:59 Last Admin: 12/28/21 08:23 Dose: 30 mg Docusate Sodium (Docusate Sodium 100 Mg Cap) 100 mg PO HS PRN PRN Reason: Constipation Stop: 01/16/22 06:31 Furosemide (Furosemide 20 Mg Tab) 20 mg PO 2XWK PRN PRN Reason: sweling & weight gain Stop: 01/16/22 06:31 Hydroxyzine HCl (Hydroxyzine Hcl 10 Mg Tab) 10 mg PO Q6 PRN PRN Reason: anxiety Stop: 01/16/22 06:31 Last Admin: 12/18/21 03:32 Dose: 10 mg Lactobacillus Acidophilus (Advanced Probiotic 1250 Mg Capsule) 2 cap PO DAILY [facility] Stop: 01/16/22 08:59 Last Admin: 12/28/21 08:23 Dose: 2 cap Levetiracetam (Levetiracetam 500 Mg Tab) 500 mg PO BID B[facility]ARDINO Stop: 01/24/22 20:59 Last Admin: 12/28/21 08:23 Dose: 500 mg Magnesium Hydroxide (Magnesium Hydroxide Susp 30 Ml Udc) 15 ml PO DAILY PRN PRN Reason: Constipation Stop: 01/16/22 06:31 Magnesium Oxide (Magnesium Oxide 400 Mg Tab) 400 mg PO QAM [facility] Stop: 01/16/22 08:59 Last Admin: 12/28/21 08:23 Dose: 400 mg Melatonin (Melatonin 3 Mg Tab) 9 mg PO HS PRN PRN Reason: Sleep Stop: 01/16/22 07:07 Last Admin: 12/23/21 20:25 Dose: 9 mg Methimazole (Methimazole 5 Mg Tablet) 10 mg PO BID [facility] Stop: 01/16/22 08:59 Last Admin: 12/28/21 08:23 Dose: 10 mg Metoprolol Succinate (Metoprolol Succ 50mg Ext Rel Tab) 75 mg PO QAM [facility] Stop: 01/16/22 08:59 Last Admin: 12/28/21 08:23 Dose: 75 mg Morphine Sulfate (Morphine Sulfate 2 Mg/Ml Carp) 2 mg IV Q2H PRN PRN Reason: Pain or dyspnea Stop: 01/09/22 14:25 Nitroglycerin (Nitroglycerin Sl 0.4 Mg/Tab Tab) 0.4 mg SL UD PRN PRN Reason: Chest Pain Stop: 01/16/22 06:31 Olanzapine (Olanzapine 10 Mg/2.1 Ml Sdv) 2.5 mg IM Q4H PRN PRN Reason: Anxiety/Agitation Stop: 01/17/22 19:40 Last Admin: 12/18/21 19:56 Dose: 2.5 mg Ondansetron HCl (Ondansetron Inj 2 Mg/Ml 2 Ml Vial) 4 mg IV Q6H PRN PRN Reason: Nausea Stop: 01/16/22 06:31 Polyethylene Glycol (Polyethylene (Miralax) 17 Gm Pack) 17 gm PO DAILY [facility] Stop: 01/24/22 20:59 Last Admin: 12/28/21 08:23 Dose: 17 gm Potassium Chloride (Potassium Chloride 10 Meq Tabcr) 10 meq PO DAILY [facility] Stop: 01/16/22 08:59 Last Admin: 12/28/21 08:28 Dose: 10 meq Senna/Docusate Sodium (Docusate Sodium/Senna 50/8.6mg Tab) 1 tab PO QAM [facility] Stop: 01/16/22 08:59 Last Admin: 12/28/21 08:28 Dose: 1 tab (1) Altered mental status Altered mental status type: delirium Qualified Code(s): R41.0 - Disorientation, unspecified
[2021-12-28] MEDS: DIGOXIN 0.125 MG TAB PO SCH (16:23)
[2021-12-28] MEDS: hydrOXYzine HCl 10 MG TAB PO PRN (18:26)
[2021-12-29] MEDS: APIXABAN 2.5 MG TAB PO SCH ×2 (07:54→20:22)
[2021-12-29] MEDS: dexAMETHasone 1 MG TAB PO SCH ×2 (07:54→20:21)
[2021-12-29] MEDS: METOPROLOL SUCC 50MG EXT REL TAB PO SCH (07:55)
[2021-12-29] MEDS: ADVANCED PROBIOTIC 1250 MG CAPSULE PO SCH (07:55)
[2021-12-29] MEDS: ATORVASTATIN 10 MG TAB PO SCH (07:55)
[2021-12-29] MEDS: methIMAzole 5 MG TABLET PO SCH ×2 (07:57→20:21)
[2021-12-29] MEDS: MAGNESIUM OXIDE 400 MG TAB PO SCH (07:57)
[2021-12-29] MEDS: levETIRAcetam 500 MG TAB PO SCH ×2 (07:58→20:21)
[2021-12-29] MEDS: dilTIAZem HCL 30 MG TAB PO SCH ×2 (07:58→20:22)
[2021-12-29] MEDS: POLYETHYLENE (MIRALAX) 17 GM PACK PO SCH (07:59)
[2021-12-29] MEDS: POTASSIUM CHLORIDE 10 MEQ TABCR PO SCH (08:03)
[2021-12-29] MEDS: DOCUSATE SODIUM/SENNA 50/8.6MG TAB PO SCH (08:03)
[2021-12-29] MEDS: MoRPHine SULFATE 2 MG/ML CARP IV PRN ×3 (09:23→21:03)
--- NOTE | 2021-12-29 13:20 | Hospitalist Progress Note ---
Date of Service December 29, 2021 Assessment & Plan (1) Altered mental status: Plan: Overall deterioration of her condition Remains very weak and lethargic and apprehensive of any fall even she has not tried any activities Discussed with daughter in detail and informed that palliative care will reevaluate her for possible hospice care and/or comfort care down the line PT evaluated her today and I was told that she could not even participate in the physical therapy due to weakness Will talk to the daughter after palliative evaluation Appreciate palliative care evaluation and recommendation The family service caseworker is working on placement in skilled care facility and possible transfer to hospice care from there Awaiting placement Remains stable but very depressed and anxious Clinically better and seems to be stable Awaiting transfer to skilled care facility with transformation to hospice care down the line Plan 89-year-old lady with PMH of HTN, chronic LBBB, remote craniotomy with left supraclinoid aneurysm clipping, 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 She is being managed for the following: Altered mental status: Multiple etiologies as above and is complicated by UTI and bilateral leg wounds BLE wounds Possible MDR UTI/ likely complicated UTI ?? 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 At presentation, patient was mumbling and not answering any questions. 11 AM exam, patient was oriented x3 but unable to move her left lower extremity. Sensation was intact BLE. Patient does have a history of recurrent falls. BLE wounds, superficial laceration on right lateral calf [noted to be draining at admission] -->> 12/17 Wound Cx MSSA. Admitting UA negative for UTI but 12/17 U Cx positive for MDR E. Faecium, admitting wbc minimally elevated then has been wnl. Pt has been afebrile. Renal Fxns and electrolytes are normal. Patient started on Zosyn and doxycycline on 12/17 --> MDR E faecium in U Cx noted on 12/20 --> Zosyn DC'd 12/20, Vanc started 12/20, ID consulted. f/u ID eval and recs.-Appreciate input and recommendation Blood cultures have been negative Clinically not any better and remains extremely weak and lethargic Mental cloudiness seems to be improving We will continue with PT and OT-recommended rehab Clinically a little better and complains a few nonspecific symptoms including chest pain and shortness of breath Remains extremely weak and lethargic and was not being able to participate in physical therapy This is a significant deterioration from her days before Await palliative care evaluation and recommendation-as above Nonspecific chest pain with shortness of breath EKG is pending for now but troponin is negative compared with prior results Chest x-ray does not show any pulmonary edema but has cardiomegaly as before She was reassured No more chest pain and/or palpitation Possible seizure Patient had ? shaky episode before coming to the hospital, concern for postictal 12/18 EEG: fairly normal-appearing awake/drowsy EEG. No epileptiform abnormalities observed. D/w neurology 12/19, concern for underlying seizure activity, on trial of keppra and continue to monitor. S/P LP 12/20: fluid analysis fairly wnl, meningoencephalitis panel pcr negative, f/u CSF C/S; CSF path neg for malignancy. Pt w/ periods of mental fluctuation and emotional lability. Psy evaluated 12/19, appreciate recs. Speech evaluated 12/17, cleared her for diet. Pt eating ok during her normal mentation periods Will continue Keppra orally Admitting imagings C-spine CT: No acute findings but with severe multilevel degenerative changes within the cervical spine. Head CT: Chronic finding of encephalomalacia of the inferior left frontal lobe. Involutional changes with ex vacuo ventriculomegaly. Pelvic x-ray: No acute findings. CXR: No acute findings. CTAP: No acute findings. F/u CT head 12/18: No new changes compared to prior. Palliative eval: appreciate palliative care input. Will have palliative reevaluation and possible hospice care and/or comfort care down the line This is discussed with the daughter today Has had palliative reevaluation and detailed discussion with the family members Mild elevation of troponin: Troponin elevated at presentation, patient with no chest pain, likely chronic, will trend troponin. Admitting EKG with no acute changes. Troponin today's minimally elevated but way below as that of before Generalized weakness/ambulatory dysfunction in the left foot: PT/OT when stable-recommended rehab Amiodarone induced thyroiditis and hyperthyroidism: On methimazole and dexamethasone 1 Mg p.o. twice daily. Follows endocrinology. Paroxysmal A. fib: On metoprolol/Cardizem/digoxin/Eliquis. Heart rate remains controlled Other chronic medical conditions: Tachybradycardia syndrome [status post pacemaker], constipation [on a stool softener], history of TIA --->> continue with/resume home meds as and when appropriate. DVT prophylaxis: Eliquis Full code Dispo: PT/OT, CM to assist w/ DC plan. Accepted to [facility] but patient remains very lethargic to be transferred Awaiting placement Admission and Anticipated Discharge Date Admission Date: December 17, 2021 Subjective 12/24/2021 The patient was seen and examined in medical telemetry unit She has been extremely weak and lethargic Denies any significant pain, nausea and or vomiting Does not seems to be confused 12/25/2021 The patient was seen and examined in medical telemetry unit She remains very weak and lethargic and asking for help on the time Complains nonspecific chest pain with shortness of breath Denies any other significant symptoms 12/26/2021 The patient was seen and examined in medical telemetry unit in presence of the daughter She has been deteriorating and is giving up Remains very apprehensive of fall and injuring brain and other parts of the body Extremely weak and lethargic Very anxious 12/27/2021 The patient was seen and examined in medical telemetry unit She has been a little better today and asking for help Complains minimal pain in the abdomen but otherwise no other significant symptoms Remains extremely weak and lethargic to participate with physical therapy 12/28/2021 The patient was seen and examined in medical telemetry unit She remains apprehensive Not in any apparent distress She wants to talk to Marianela, her daughter 12/29/2021 Patient was seen and examined in medical telemetry unit She has been stable but remains very apprehensive Has been asking for help and also complains of more pain which is nonspecific but mostly involving the left shoulder today Review of Systems Review of Systems: All systems reviewed and are unremarkable except as noted below Musculoskeletal: Remains extremely weak and lethargic Physical Exam Physical Exam: Lying in bed without any acute distress except minimal short of breath And looks very anxious Constitutional: + ill appearing and average body habitus Eyes: PERRL, conjunctivae normal, anicteric sclerae ENMT: external ear and nose normal, oropharynx normal Neck: trachea midline, no thyromegaly Respiratory: + respiratory distress (Minimal respiratory distress at rest) Auscultation: + diminished lung sounds and + crackles (Occasional crackles at the bases) Cardiovascular: Rate/Rhythm: regular rate and regular rhythm; not tachycardic Heart Sounds: normal S1, normal S2 and + murmur Extremities: + edema (1+ edema bilaterally) Gastrointestinal (Abdomen): Inspection/Auscultation: normal bowel sounds; abdomen not distended Percussion/Palpation: abdomen soft; abdomen nontender Musculoskeletal: No acute arthritis involving any joint Neurologic: normal touch/pain/proprioception and moves all extremities; no focal motor deficits Lymphatic: no cervical or axillary lymphadenopathy Results & Data Results & Data ([facility]) Vital Signs (Past 12 Hours) Vital Signs Temp Pulse Pulse Resp BP BP Pulse Ox 12/29/21 11:10 36.4 C L 69 18 124/74 96 12/29/21 07:33 36.9 C 64 18 143/77 H 97 12/29/21 07:28 60 12/29/21 02:39 76 18 130/77 96 O2 Del Method 12/29/21 11:10 Room Air 12/29/21 07:33 Room Air 12/29/21 07:28 12/29/21 02:39 Room Air Medications Administered Current Inpatient Medications Acetaminophen (Acetaminophen 325 Mg Tab) 650 mg PO Q4H PRN PRN Reason: Pain or Fever Stop: 01/16/22 06:31 Last Admin: 12/28/21 16:25 Dose: 650 mg Alprazolam (Alprazolam 0.25 Mg Tablet) 0.25 mg PO HS PRN PRN Reason: anxiety Stop: 01/16/22 06:31 Last Admin: 12/26/21 20:46 Dose: 0.25 mg Apixaban (Apixaban 2.5 Mg Tab) 2.5 mg PO BID [facility] Stop: 01/16/22 08:59 Last Admin: 12/29/21 07:54 Dose: 2.5 mg Atorvastatin Calcium (Atorvastatin 10 Mg Tab) 10 mg PO DAILY [facility] Stop: 01/16/22 08:59 Last Admin: 12/29/21 07:55 Dose: 10 mg Dexamethasone (Dexamethasone 1 Mg Tab) 1 mg PO BID [facility] Stop: 01/16/22 08:59 Last Admin: 12/29/21 07:54 Dose: 1 mg Digoxin (Digoxin 0.125 Mg Tab) 0.125 mg PO DAILY@1600 [facility] Stop: 01/16/22 15:59 Last Admin: 12/28/21 16:23 Dose: 0.125 mg Diltiazem HCl (Diltiazem Hcl 30 Mg Tab) 30 mg PO BID [facility] Stop: 01/16/22 08:59 Last Admin: 12/29/21 07:58 Dose: 30 mg Docusate Sodium (Docusate Sodium 100 Mg Cap) 100 mg PO HS PRN PRN Reason: Constipation Stop: 01/16/22 06:31 Furosemide (Furosemide 20 Mg Tab) 20 mg PO 2XWK PRN PRN Reason: sweling & weight gain Stop: 01/16/22 06:31 Hydroxyzine HCl (Hydroxyzine Hcl 10 Mg Tab) 10 mg PO Q6 PRN PRN Reason: anxiety Stop: 01/16/22 06:31 Last Admin: 12/28/21 18:26 Dose: 10 mg Lactobacillus Acidophilus (Advanced Probiotic 1250 Mg Capsule) 2 cap PO DAILY [facility] Stop: 01/16/22 08:59 Last Admin: 12/29/21 07:55 Dose: 2 cap Levetiracetam (Levetiracetam 500 Mg Tab) 500 mg PO BID [facility] Stop: 01/24/22 20:59 Last Admin: 12/29/21 07:58 Dose: 500 mg Magnesium Hydroxide (Magnesium Hydroxide Susp 30 Ml Udc) 15 ml PO DAILY PRN PRN Reason: Constipation Stop: 01/16/22 06:31 Magnesium Oxide (Magnesium Oxide 400 Mg Tab) 400 mg PO QAM [facility] Stop: 01/16/22 08:59 Last Admin: 12/29/21 07:57 Dose: 400 mg Melatonin (Melatonin 3 Mg Tab) 9 mg PO HS PRN PRN Reason: Sleep Stop: 01/16/22 07:07 Last Admin: 12/23/21 20:25 Dose: 9 mg Methimazole (Methimazole 5 Mg Tablet) 10 mg PO BID [facility] Stop: 01/16/22 08:59 Last Admin: 12/29/21 07:57 Dose: 10 mg Metoprolol Succinate (Metoprolol Succ 50mg Ext Rel Tab) 75 mg PO QAM [facility] Stop: 01/16/22 08:59 Last Admin: 12/29/21 07:55 Dose: 75 mg Morphine Sulfate (Morphine Sulfate 2 Mg/Ml Carp) 2 mg IV Q2H PRN PRN Reason: Pain or dyspnea Stop: 01/09/22 14:25 Last Admin: 12/29/21 09:23 Dose: 2 mg Nitroglycerin (Nitroglycerin Sl 0.4 Mg/Tab Tab) 0.4 mg SL UD PRN PRN Reason: Chest Pain Stop: 01/16/22 06:31 Olanzapine (Olanzapine 10 Mg/2.1 Ml Sdv) 2.5 mg IM Q4H PRN PRN Reason: Anxiety/Agitation Stop: 01/17/22 19:40 Last Admin: 12/18/21 19:56 Dose: 2.5 mg Ondansetron HCl (Ondansetron Inj 2 Mg/Ml 2 Ml Vial) 4 mg IV Q6H PRN PRN Reason: Nausea Stop: 01/16/22 06:31 Polyethylene Glycol (Polyethylene (Miralax) 17 Gm Pack) 17 gm PO DAILY [facility] Stop: 01/24/22 20:59 Last Admin: 12/29/21 07:59 Dose: 17 gm Potassium Chloride (Potassium Chloride 10 Meq Tabcr) 10 meq PO DAILY [facility] Stop: 01/16/22 08:59 Last Admin: 12/29/21 08:03 Dose: 10 meq Senna/Docusate Sodium (Docusate Sodium/Senna 50/8.6mg Tab) 1 tab PO QAM [facility] Stop: 01/16/22 08:59 Last Admin: 12/29/21 08:03 Dose: 1 tab (1) Altered mental status Altered mental status type: delirium Qualified Code(s): R41.0 - Disorientation, unspecified
[2021-12-29] MEDS: DIGOXIN 0.125 MG TAB PO SCH (15:54)
[2021-12-29] MEDS: ONDANSETRON INJ 2 MG/ML 2 ML VIAL IV PRN (21:09)
[2021-12-29] MEDS: MELATONIN 3 MG TAB PO PRN (22:26)
[2021-12-29] MEDS: ALPRAZolam 0.25 MG TABLET PO PRN (22:26)
[2021-12-30 09:21] LABS: Hematocrit (blood only) 40.3 % (34.1-44.9); Hemoglobin 13.1 g/dl (12.0-16.0); Mean Corpuscular Hemoglobin 27.6 pg (25.0-34.0); Mean Corpuscular Hgb Conc 32.5 g/dL (32.0-36.0); Mean Corpuscular Volume 84.8 fL (80.0-100.0); Mean Platelet Volume 9.7 fL (9.4-12.3); Nucleated RBC # (auto) 0.02 K/uL (0-0); Nucleated RBC % (auto) 0.2 %; Platelet Count 184 K/uL (130-400); RDW Coefficient of Variation 18.2 % (11.5-14.5); RDW Standard Deviation 53.2 fL (36.4-46.3); Red Blood Count 4.75 M/uL (3.93-5.22); White Blood Count 8.29 K/ul (4.8-10.8)
[2021-12-30] MEDS ORDERED: MoRPHine SULFATE 4 MG/ML 1 ML CARP\\VIAL IV STA (09:39)
[2021-12-30] MEDS ORDERED: HYDROmorphone INJ 0.5 MG/0.5 ML SYR IV STA (09:44)
[2021-12-30 09:45] LABS: BUN Creatinine Ratio 78.4 (10-20); Calcium 8.8 mg/dl (8.5-10.1); Creatinine Clr Calc Pharmacy 85.3 ml/min; Est GFR (African American) 109.8 ml/min; Est GFR (Non-African American) 94.7 ml/min; Potassium 4.2 mmol/L (3.5-5.1)
[2021-12-30] MEDS: hydrOXYzine HCl 10 MG TAB PO PRN (09:54)
[2021-12-30] MEDS: dilTIAZem HCL 30 MG TAB PO SCH ×2 (10:04→20:13)
[2021-12-30] MEDS: dexAMETHasone 1 MG TAB PO SCH ×2 (10:07→20:12)
[2021-12-30] MEDS: levETIRAcetam 500 MG TAB PO SCH ×2 (10:08→20:13)
[2021-12-30 10:09] LABS: Basophils # (auto) 0.04 K/uL (0-0.2); Basophils % (auto) 0.5 %; Echinocytes 1+; Eosinophils # (auto) 0.01 K/uL (0-0.50); Eosinophils % (auto) 0.1 %; Immature Granulocytes % (auto) 7.2 %; Lymphocytes # (auto) 1.46 K/uL (1.2-3.4); Lymphocytes % (auto) 17.6 %; Monocytes # (auto) 0.42 K/uL (0.24-0.82); Monocytes % (auto) 5.1 %; Neutrophils # (auto) 5.76 K/uL (1.4-6.5); Neutrophils % (auto) 69.5 %
[2021-12-30] MEDS: methIMAzole 5 MG TABLET PO SCH ×2 (10:11→20:14)
[2021-12-30] MEDS: ATORVASTATIN 10 MG TAB PO SCH (10:11)
[2021-12-30] MEDS: APIXABAN 2.5 MG TAB PO SCH ×2 (10:13→20:11)
[2021-12-30 10:19] LABS: Troponin I High Sensitivity 55.7 pg/ml (0-14)
[2021-12-30] MEDS: DOCUSATE SODIUM/SENNA 50/8.6MG TAB PO SCH (11:05)
[2021-12-30] MEDS: POLYETHYLENE (MIRALAX) 17 GM PACK PO SCH (11:06)
[2021-12-30] MEDS: ADVANCED PROBIOTIC 1250 MG CAPSULE PO SCH (11:06)
[2021-12-30] MEDS: MAGNESIUM OXIDE 400 MG TAB PO SCH (11:06)
[2021-12-30] MEDS: POTASSIUM CHLORIDE 10 MEQ TABCR PO SCH (11:06)
[2021-12-30] MEDS: METOPROLOL SUCC 50MG EXT REL TAB PO SCH (11:58)
--- NOTE | 2021-12-30 13:33 | Palliative Care Progress Note ---
Date of Service December 30, 2021 Assessment & Plan (1) Anxiety: Plan: Continue alprazolam prn. Her daughter would like to avoid excessive sedation if possible but does want to make sure that Geni has medication for comfort when needed. (2) Dyspnea: Plan: Worse with anxiety. Continue alprazolam as above. (3) Pain: Plan: Complaint of chest pain with Troponin I continuing to trend down since high on 12/16. Suspect that anxiety is contributing to this. She does have order for morphine but RN concerned about giving morphine with allergy and complaint of nausea. She does not have a true allergy to morphine. Her daughter is aware of the risk of sedation but would prefer her to have pain medication as needed. She did receive hydromorphone which was initially concerning for her daughter, Marianela, as she sees that as "a big gun". We discussed dose equivalency and she was more comfortable with this. Geni will not be able to get IV pain medication on discharge to SNF. Marianela and I discussed concern about nausea, which certainly could be caused by morphine. She does however have severe anxiety which can contribute to nausea. Suggested trial of po medication prior to discharge to ensure that it is effective and tolerable for Geni. This could be done with oxycodone prn or roxanol. Marianela would prefer roxanol which would also be easier to administer and more easily available in oral concentrate. Geni does have order for prn zofran as well. Will switch to prn roxanol and monitor. (4) Palliative care encounter: Plan: I had an extensive discussion with Marianela about clarifying goals of care moving forward. She does not feel that Geni "is ready for hospice". She has a good understanding and prior experience with hospice but is concerned that being on hospice feels like "giving up". She very much wants to try rehab, if Geni is able, though she has not been able to work with PT in the last few days. If she is not able to do PT/rehab, Marianela would want to continue current medications, treat treatable conditions and also pay attention to comfort. She has decided that she would not want her mother to return to the hospital which is very distressing for her. We talked about concern that if she has a problem and is not on hospice, there is a higher likelihood that she could return to the hospital. Per our discussion based on Marianela's and Geni's wishes, POLST was completed for DNR/DNI with focus on comfort measures avoiding return to the hospital unless her comfort needs could not be met at the SNF. She would want trial of antibiotics and hydration with no termite inspector hydration or nutrition. She is in [place] and unable to sign POLST at this time but did give verbal consent when document was reviewed with her as above. She does not want hospice for Geni at this time. Admission and Anticipated Discharge Date Admission Date: December 17, 2021 Subjective Very anxious earlier this morning with complaint of chest pain. She received alprazolam and hydromorphone and is resting comfortably. Review of Systems Review of Systems: Unobtainable due to reduced consciousness Physical Exam Constitutional: no acute distress ENMT: Mouth: + dry oral mucous membranes Respiratory: normal respiratory effort; no labored breathing Cardiovascular: Rate/Rhythm: regular rate and regular rhythm Gastrointestinal (Abdomen): soft Skin: warm and dry Results & Data ([facility]) Vital Signs (Past 12 Hours) Vital Signs Temp Pulse Resp BP BP Pulse Ox O2 Del Method 12/30/21 10:29 Room Air 12/30/21 08:38 97.5 F L 67 22 123/74 98 Room Air 12/30/21 04:00 97.9 F 66 18 131/72 93 Room Air 12/30/21 01:17 Room Air PG Care Time/CCT Total # of Minutes Spent Total Time Spent: 70 Total Time Spent with Patient: Total time spent is greater than 50% in coordination of care (as documented) at patient's floor/unit and/or counseling patient:symptom management, goals of care, POLST, family education and support Coding Level of Care Code 81308 Prolonged Care (int'l) Diagnoses Anxiety F41.9 Dyspnea R06.00 Pain R52 Palliative care encounter Z51.5
--- NOTE | 2021-12-30 15:14 | Electrocardiogram Report ---
Test Reason : Blood Pressure : / mmHG Vent. Rate : 068 BPM Atrial Rate : 068 BPM P-R Int : 156 ms QRS Dur : 144 ms QT Int : 424 ms P-R-T Axes : 059 -43 100 degrees QTc Int : 450 ms Normal sinus rhythm with sinus arrhythmia Possible Left atrial enlargement Left axis deviation Left bundle branch block Abnormal ECG When compared with ECG of 27-DEC-2021 15:16, Sinus rhythm has replaced Electronic atrial pacemaker Confirmed by Syed Arora ([id number]) on 12/30/2021 3:14:21 PM Referred By: [facility] Confirmed By:Syed Arora
[2021-12-30] MEDS: ACETAMINOPHEN 325 MG TAB PO PRN ×2 (15:38→20:15)
[2021-12-30] MEDS: DIGOXIN 0.125 MG TAB PO SCH (15:39)
--- NOTE | 2021-12-30 16:20 | Hospitalist Progress Note ---
Date of Service December 30, 2021 Assessment & Plan (1) Altered mental status: Plan: Overall deterioration of her condition Remains very weak and lethargic and apprehensive of any fall even she has not tried any activities Discussed with daughter in detail and informed that palliative care will reevaluate her for possible hospice care and/or comfort care down the line PT evaluated her today and I was told that she could not even participate in the physical therapy due to weakness Will talk to the daughter after palliative evaluation Appreciate palliative care evaluation and recommendation The hospice case manager is working on placement in skilled care facility and possible transfer to hospice care from there Awaiting placement Remains stable but very depressed and anxious Clinically better and seems to be stable Awaiting transfer to skilled care facility with transformation to hospice care down the line Remains very agitated and anxious-we will add Félixrexfareed regularly Likely to be discharged with hospice care to the facility tomorrow Plan 89-year-old lady with PMH of HTN, chronic LBBB, remote craniotomy with left supraclinoid aneurysm clipping, 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 She is being managed for the following: Altered mental status: Multiple etiologies as above and is complicated by UTI and bilateral leg wounds BLE wounds Possible MDR UTI/ likely complicated UTI ?? 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 At presentation, patient was mumbling and not answering any questions. 11 AM exam, patient was oriented x3 but unable to move her left lower extremity. Sensation was intact BLE. Patient does have a history of recurrent falls. BLE wounds, superficial laceration on right lateral calf [noted to be draining at admission] -->> 12/17 Wound Cx MSSA. Admitting UA negative for UTI but 12/17 U Cx positive for MDR E. Faecium, admitting wbc minimally elevated then has been wnl. Pt has been afebrile. Renal Fxns and electrolytes are normal. Patient started on Zosyn and doxycycline on 12/17 --> MDR E faecium in U Cx noted on 12/20 --> Zosyn DC'd 12/20, Vanc started 12/20, ID consulted. f/u ID eval and recs.-Appreciate input and recommendation Blood cultures have been negative Clinically not any better and remains extremely weak and lethargic Mental cloudiness seems to be improving We will continue with PT and OT-recommended rehab Clinically a little better and complains a few nonspecific symptoms including chest pain and shortness of breath Remains extremely weak and lethargic and was not being able to participate in physical therapy This is a significant deterioration from her days before Await palliative care evaluation and recommendation-as above Appreciate palliative care evaluation and recommendation Nonspecific chest pain with shortness of breath EKG is pending for now but troponin is negative compared with prior results Chest x-ray does not show any pulmonary edema but has cardiomegaly as before She was reassured No more chest pain and/or palpitation-no ACS Possible seizure Patient had ? shaky episode before coming to the hospital, concern for postictal 12/18 EEG: fairly normal-appearing awake/drowsy EEG. No epileptiform abnormalities observed. D/w neurology 12/19, concern for underlying seizure activity, on trial of keppra and continue to monitor. S/P LP 12/20: fluid analysis fairly wnl, meningoencephalitis panel pcr negative, f/u CSF C/S; CSF path neg for malignancy. Pt w/ periods of mental fluctuation and emotional lability. Psy evaluated 12/19, appreciate recs. Speech evaluated 12/17, cleared her for diet. Pt eating ok during her normal mentation periods Will continue Keppra orally Admitting imagings C-spine CT: No acute findings but with severe multilevel degenerative changes within the cervical spine. Head CT: Chronic finding of encephalomalacia of the inferior left frontal lobe. Involutional changes with ex vacuo ventriculomegaly. Pelvic x-ray: No acute findings. CXR: No acute findings. CTAP: No acute findings. F/u CT head 12/18: No new changes compared to prior. Palliative eval: appreciate palliative care input. Will have palliative reevaluation and possible hospice care and/or comfort care down the line This is discussed with the daughter today Has had palliative reevaluation and detailed discussion with the family members Mild elevation of troponin: Troponin elevated at presentation, patient with no chest pain, likely chronic, will trend troponin. Admitting EKG with no acute changes. Troponin today's minimally elevated but way below as that of before Generalized weakness/ambulatory dysfunction in the left foot: PT/OT when stable-recommended rehab Amiodarone induced thyroiditis and hyperthyroidism: On methimazole and dexamethasone 1 Mg p.o. twice daily. Follows endocrinology. Paroxysmal A. fib: On metoprolol/Cardizem/digoxin/Eliquis. Heart rate remains controlled Other chronic medical conditions: Tachybradycardia syndrome [status post pacemaker], constipation [on a stool softener], history of TIA --->> continue with/resume home meds as and when appropriate. DVT prophylaxis: Eliquis Full code Dispo: PT/OT, CM to assist w/ DC plan. Accepted to [facility] but patient remains very lethargic to be transferred Awaiting placement Admission and Anticipated Discharge Date Admission Date: December 17, 2021 Subjective 12/24/2021 The patient was seen and examined in medical telemetry unit She has been extremely weak and lethargic Denies any significant pain, nausea and or vomiting Does not seems to be confused 12/25/2021 The patient was seen and examined in medical telemetry unit She remains very weak and lethargic and asking for help on the time Complains nonspecific chest pain with shortness of breath Denies any other significant symptoms 12/26/2021 The patient was seen and examined in medical telemetry unit in presence of the daughter She has been deteriorating and is giving up Remains very apprehensive of fall and injuring brain and other parts of the body Extremely weak and lethargic Very anxious 12/27/2021 The patient was seen and examined in medical telemetry unit She has been a little better today and asking for help Complains minimal pain in the abdomen but otherwise no other significant symptoms Remains extremely weak and lethargic to participate with physical therapy 12/28/2021 The patient was seen and examined in medical telemetry unit She remains apprehensive Not in any apparent distress She wants to talk to Marianela, her daughter 12/29/2021 Patient was seen and examined in medical telemetry unit She has been stable but remains very apprehensive Has been asking for help and also complains of more pain which is nonspecific but mostly involving the left shoulder today 12/30/2021 The patient was seen and examined in medical telemetry unit She remains very anxious and complains to pain Denies any increasing shortness of breath but remains very weak and tired Review of Systems Review of Systems: Unobtainable due to cognitive status Physical Exam Physical Exam: Lying in bed without any acute distress except minimal short of breath And looks very anxious Constitutional: + ill appearing and average body habitus Eyes: PERRL, conjunctivae normal, anicteric sclerae ENMT: external ear and nose normal, oropharynx normal Neck: trachea midline, no thyromegaly Respiratory: + respiratory distress (Minimal respiratory distress at rest) Auscultation: + diminished lung sounds and + crackles (Occasional crackles at the bases) Cardiovascular: Rate/Rhythm: regular rate and regular rhythm; not tachycardic Heart Sounds: normal S1, normal S2 and + murmur Extremities: + edema (1+ edema bilaterally) Gastrointestinal (Abdomen): Inspection/Auscultation: normal bowel sounds; abdomen not distended Percussion/Palpation: abdomen soft; abdomen nontender Musculoskeletal: No acute arthritis in any Neurologic: normal touch/pain/proprioception and moves all extremities; no focal motor deficits Lymphatic: no cervical or axillary lymphadenopathy Results & Data Results & Data ([facility]) Vital Signs (Past 12 Hours) Vital Signs Temp Pulse Pulse Resp BP Pulse Ox O2 Del Method 12/30/21 15:39 87 12/30/21 15:14 36.8 C 88 18 123/74 97 12/30/21 10:29 Room Air 12/30/21 08:38 36.4 C L 67 22 123/74 98 Room Air Laboratory Results Short CBC 12/30/21 Range/Units 08:35 WBC 8.29 (4.8-10.8) K/ul Hgb 13.1 (12.0-16.0) g/dl Hct 40.3 (34.1-44.9) % Plt Count 184 (130-400) K/uL BMP 12/30/21 08:35 Sodium 137 Potassium 4.2 Chloride 103 Carbon Dioxide 29 BUN 29 H Creatinine 0.37 L Glucose 154 H Calcium 8.8 Medications Administered Current Inpatient Medications Acetaminophen (Acetaminophen 325 Mg Tab) 650 mg PO Q4H PRN PRN Reason: Pain or Fever Stop: 01/16/22 06:31 Last Admin: 12/30/21 15:38 Dose: 650 mg Alprazolam (Alprazolam 0.25 Mg Tablet) 0.25 mg PO HS PRN PRN Reason: anxiety Stop: 01/16/22 06:31 Last Admin: 12/29/21 22:26 Dose: 0.25 mg Apixaban (Apixaban 2.5 Mg Tab) 2.5 mg PO BID [facility] Stop: 01/16/22 08:59 Last Admin: 12/30/21 10:13 Dose: 2.5 mg Atorvastatin Calcium (Atorvastatin 10 Mg Tab) 10 mg PO DAILY [facility] Stop: 01/16/22 08:59 Last Admin: 12/30/21 10:11 Dose: 10 mg Dexamethasone (Dexamethasone 1 Mg Tab) 1 mg PO BID [facility] Stop: 01/16/22 08:59 Last Admin: 12/30/21 10:07 Dose: 1 mg Digoxin (Digoxin 0.125 Mg Tab) 0.125 mg PO DAILY@1600 [facility] Stop: 01/16/22 15:59 Last Admin: 12/30/21 15:39 Dose: 0.125 mg Diltiazem HCl (Diltiazem Hcl 30 Mg Tab) 30 mg PO BID [facility] Stop: 01/16/22 08:59 Last Admin: 12/30/21 10:04 Dose: 30 mg Docusate Sodium (Docusate Sodium 100 Mg Cap) 100 mg PO HS PRN PRN Reason: Constipation Stop: 01/16/22 06:31 Furosemide (Furosemide 20 Mg Tab) 20 mg PO 2XWK PRN PRN Reason: sweling & weight gain Stop: 01/16/22 06:31 Hydroxyzine HCl (Hydroxyzine Hcl 10 Mg Tab) 10 mg PO Q6 PRN PRN Reason: anxiety Stop: 01/16/22 06:31 Last Admin: 12/30/21 09:54 Dose: 10 mg Lactobacillus Acidophilus (Advanced Probiotic 1250 Mg Capsule) 2 cap PO DAILY B[facility]INO Stop: 01/16/22 08:59 Last Admin: 12/30/21 11:06 Dose: Not Given Levetiracetam (Levetiracetam 500 Mg Tab) 500 mg PO BID [facility] Stop: 01/24/22 20:59 Last Admin: 12/30/21 10:08 Dose: 500 mg Magnesium Hydroxide (Magnesium Hydroxide Susp 30 Ml Udc) 15 ml PO DAILY PRN PRN Reason: Constipation Stop: 01/16/22 06:31 Magnesium Oxide (Magnesium Oxide 400 Mg Tab) 400 mg PO QAM [facility] Stop: 01/16/22 08:59 Last Admin: 12/30/21 11:06 Dose: Not Given Melatonin (Melatonin 3 Mg Tab) 9 mg PO HS PRN PRN Reason: Sleep Stop: 01/16/22 07:07 Last Admin: 12/29/21 22:26 Dose: 9 mg Methimazole (Methimazole 5 Mg Tablet) 10 mg PO BID [facility] Stop: 01/16/22 08:59 Last Admin: 12/30/21 10:11 Dose: 10 mg Metoprolol Succinate (Metoprolol Succ 50mg Ext Rel Tab) 75 mg PO QAM [facility] Stop: 01/16/22 08:59 Last Admin: 12/30/21 11:58 Dose: Not Given Morphine Sulfate (Morphine Sulfate 2 Mg/Ml Carp) 2 mg IV Q2H PRN PRN Reason: Pain or dyspnea Stop: 01/09/22 14:25 Last Admin: 12/29/21 21:03 Dose: 2 mg Morphine Sulfate (Morphine Sulfate 5 Mg/0.25 Ml Udp) 5 mg PO Q4H PRN PRN Reason: Pain or dyspnea Stop: 01/13/22 13:46 Nitroglycerin (Nitroglycerin Sl 0.4 Mg/Tab Tab) 0.4 mg SL UD PRN PRN Reason: Chest Pain Stop: 01/16/22 06:31 Olanzapine (Olanzapine 10 Mg/2.1 Ml Sdv) 2.5 mg IM Q4H PRN PRN Reason: Anxiety/Agitation Stop: 01/17/22 19:40 Last Admin: 12/18/21 19:56 Dose: 2.5 mg Olanzapine (Olanzapine 5 Mg Tablet) 5 mg PO HS [facility] Stop: 01/29/22 20:59 Ondansetron HCl (Ondansetron Inj 2 Mg/Ml 2 Ml Vial) 4 mg IV Q6H PRN PRN Reason: Nausea Stop: 01/16/22 06:31 Last Admin: 12/29/21 21:09 Dose: 4 mg Polyethylene Glycol (Polyethylene (Miralax) 17 Gm Pack) 17 gm PO DAILY [facility] Stop: 01/24/22 20:59 Last Admin: 12/30/21 11:06 Dose: Not Given Potassium Chloride (Potassium Chloride 10 Meq Tabcr) 10 meq PO DAILY [facility] Stop: 01/16/22 08:59 Last Admin: 12/30/21 11:06 Dose: Not Given Senna/Docusate Sodium (Docusate Sodium/Senna 50/8.6mg Tab) 1 tab PO QAM [facility] Stop: 01/16/22 08:59 Last Admin: 12/30/21 11:05 Dose: Not Given (1) Altered mental status Altered mental status type: delirium Qualified Code(s): R41.0 - Disorientation, unspecified
[2021-12-30] MEDS: OLANZapine 5 MG TABLET PO SCH (20:12)
[2021-12-31] MEDS: ONDANSETRON INJ 2 MG/ML 2 ML VIAL IV PRN (00:32)
[2021-12-31] MEDS: MoRPHine SULFATE 2 MG/ML CARP IV PRN (00:35)
[2021-12-31] MEDS: POLYETHYLENE (MIRALAX) 17 GM PACK PO SCH (08:06)
[2021-12-31] MEDS: APIXABAN 2.5 MG TAB PO SCH ×2 (08:06→21:21)
[2021-12-31] MEDS: POTASSIUM CHLORIDE 10 MEQ TABCR PO SCH (08:06)
[2021-12-31] MEDS: DOCUSATE SODIUM/SENNA 50/8.6MG TAB PO SCH (08:06)
[2021-12-31] MEDS: METOPROLOL SUCC 50MG EXT REL TAB PO SCH (08:07)
[2021-12-31] MEDS: methIMAzole 5 MG TABLET PO SCH ×2 (08:07→21:22)
[2021-12-31] MEDS: ATORVASTATIN 10 MG TAB PO SCH (08:07)
[2021-12-31] MEDS: ADVANCED PROBIOTIC 1250 MG CAPSULE PO SCH (08:07)
[2021-12-31] MEDS: dexAMETHasone 1 MG TAB PO SCH ×2 (08:07→21:20)
[2021-12-31] MEDS: levETIRAcetam 500 MG TAB PO SCH ×2 (08:07→21:20)
[2021-12-31] MEDS: dilTIAZem HCL 30 MG TAB PO SCH ×2 (08:07→21:21)
[2021-12-31] MEDS: MAGNESIUM OXIDE 400 MG TAB PO SCH (08:07)
--- NOTE | 2021-12-31 08:24 | Electrocardiogram Report ---
Test Reason : Blood Pressure : / mmHG Vent. Rate : 071 BPM Atrial Rate : 071 BPM P-R Int : 150 ms QRS Dur : 140 ms QT Int : 414 ms P-R-T Axes : 063 -35 096 degrees QTc Int : 449 ms Normal sinus rhythm Left atrial enlargement Left axis deviation Left bundle branch block Abnormal ECG When compared with ECG of 29-DEC-2021 22:00, No significant change was found Confirmed by Bert Abbasi ([id number]) on 12/31/2021 8:24:19 AM Referred By: [facility] Confirmed By:Bert Abbasi
[2021-12-31] MEDS: ACETAMINOPHEN 325 MG TAB PO PRN (10:55)
[2021-12-31] MEDS: MoRPHine SULFATE 5 MG/0.25 ML UDP PO PRN (13:19)
--- NOTE | 2021-12-31 13:33 | Palliative Care Progress Note ---
Date of Service December 31, 2021 Assessment & Plan (1) Pain: Plan: Continue prn morphine for pain. Discussed with RN to use roxanol as primary and parenteral morphine only if roxanol ineffective. She will likely be returning to [facility] in the next day or so and we will not have parenteral opioid available. Admission and Anticipated Discharge Date Admission Date: December 17, 2021 Subjective Having pain with dressing change. She's had approximately 10mg OME in last 24 hours. Tolerating morphine with prn zofran. Does not respond to questions. Review of Systems Review of Systems: Unobtainable due to cognitive status Physical Exam Constitutional: + uncomfortable Respiratory: + uses accessory muscles Skin: upper and lower extremity dressing bilaterally Neurologic: + confused Results & Data ([facility]) Vital Signs (Past 12 Hours) Vital Signs Temp Pulse Pulse Resp BP Pulse Ox O2 Del Method 12/31/21 11:29 96.1 F L 86 18 114/72 95 Room Air 12/31/21 07:25 98.1 F 73 20 136/84 97 Room Air 12/31/21 07:16 67 12/31/21 03:46 97.7 F 64 18 112/64 94 Room Air PG Care Time/CCT Total # of Minutes Spent Total Time Spent with Patient: Total time spent is greater than 50% in coordination of care (as documented) at patient's floor/unit and/or counseling patient: Coding Level of Care Code 63972 Subseq Hosp Care Lvl 1 Diagnoses Pain R52
--- NOTE | 2021-12-31 15:20 | Hospitalist Progress Note ---
Date of Service December 31, 2021 Assessment & Plan (1) Altered mental status: Plan: Overall deterioration of her condition Remains very weak and lethargic and apprehensive of any fall even she has not tried any activities Discussed with daughter in detail and informed that palliative care will reevaluate her for possible hospice care and/or comfort care down the line PT evaluated her today and I was told that she could not even participate in the physical therapy due to weakness Will talk to the daughter after palliative evaluation Appreciate palliative care evaluation and recommendation The binder caser is working on placement in skilled care facility and possible transfer to hospice care from there Awaiting placement Remains stable but very depressed and anxious Clinically better and seems to be stable Awaiting transfer to skilled care facility with transformation to hospice care down the line Remains very agitated and anxious-we will add Fannie regularly Likely to be discharged with hospice care to the facility tomorrow Has had physical therapy evaluation today and she did not do good at all so she is not a candidate for physical therapy anymore Likely be transferred to [facility] with hospice care tomorrow Plan 89-year-old lady with PMH of HTN, chronic LBBB, remote craniotomy with left supraclinoid aneurysm clipping, 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 She is being managed for the following: Altered mental status: Multiple etiologies as above and is complicated by UTI and bilateral leg wounds BLE wounds Possible MDR UTI/ likely complicated UTI ?? colonization Patient presented with confusion, as per daughter patient has been declining since last few weeks PAPER CARRIER. At presentation, patient was mumbling and not answering any questions. 11/1 AM exam, patient was oriented x3 but unable to move her left lower extremity. Sensation was intact BLE. Patient does have a history of recurrent falls. BLE wounds, superficial laceration on right lateral calf [noted to be draining at admission] -->> 12/17 Wound Cx MSSA. Admitting UA negative for UTI but 12/17 U Cx positive for MDR E. Faecium, admitting wbc minimally elevated then has been wnl. Pt has been afebrile. Renal Fxns and electrolytes are normal. Patient started on Zosyn and doxycycline on 12/17 --> MDR E faecium in U Cx noted on 12/20 --> Zosyn DC'd 12/20, Vanc started 12/20, ID consulted. f/u ID eval and recs.-Appreciate input and recommendation Blood cultures have been negative Clinically not any better and remains extremely weak and lethargic Mental cloudiness seems to be improving We will continue with PT and OT-recommended rehab Clinically a little better and complains a few nonspecific symptoms including chest pain and shortness of breath Remains extremely weak and lethargic and was not being able to participate in physical therapy This is a significant deterioration from her days before Await palliative care evaluation and recommendation-as above Appreciate palliative care evaluation and recommendation-hospice care tomorrow Nonspecific chest pain with shortness of breath EKG is pending for now but troponin is negative compared with prior results Chest x-ray does not show any pulmonary edema but has cardiomegaly as before She was reassured No more chest pain and/or palpitation-no ACS Has been getting Roxanol and morphine for pain Possible seizure Patient had ? shaky episode before coming to the hospital, concern for postictal 12/18 EEG: fairly normal-appearing awake/drowsy EEG. No epileptiform abnormalities observed. D/w neurology 12/19, concern for underlying seizure activity, on trial of keppra and continue to monitor. S/P LP 12/20: fluid analysis fairly wnl, meningoencephalitis panel pcr negative, f/u CSF C/S; CSF path neg for malignancy. Pt w/ periods of mental fluctuation and emotional lability. Psy evaluated 12/19, appreciate recs. Speech evaluated 12/17, cleared her for diet. Pt eating ok during her normal mentation periods Will continue Keppra orally Admitting imagings C-spine CT: No acute findings but with severe multilevel degenerative changes within the cervical spine. Head CT: Chronic finding of encephalomalacia of the inferior left frontal lobe. Involutional changes with ex vacuo ventriculomegaly. Pelvic x-ray: No acute findings. CXR: No acute findings. CTAP: No acute findings. F/u CT head 12/18: No new changes compared to prior. Palliative eval: appreciate palliative care input. Will have palliative reevaluation and possible hospice care and/or comfort care down the line This is discussed with the daughter today Has had palliative reevaluation and detailed discussion with the family members Mild elevation of troponin: Troponin elevated at presentation, patient with no chest pain, likely chronic, will trend troponin. Admitting EKG with no acute changes. Troponin today's minimally elevated but way below as that of before Generalized weakness/ambulatory dysfunction in the left foot: PT/OT when stable-recommended rehab Amiodarone induced thyroiditis and hyperthyroidism: On methimazole and dexamethasone 1 Mg p.o. twice daily. Follows endocrinology. Paroxysmal A. fib: On metoprolol/Cardizem/digoxin/Eliquis. Heart rate remains controlled Other chronic medical conditions: Tachybradycardia syndrome [status post pacemaker], constipation [on a stool softener], history of TIA --->> continue with/resume home meds as and when appropriate. DVT prophylaxis: Eliquis Full code Dispo: PT/OT, CM to assist w/ DC plan. Accepted to [facility] but patient remains very lethargic to be transferred Likely transfer tomorrow with hospice care Admission and Anticipated Discharge Date Admission Date: December 17, 2021 Subjective 12/24/2021 The patient was seen and examined in medical telemetry unit She has been extremely weak and lethargic Denies any significant pain, nausea and or vomiting Does not seems to be confused 12/25/2021 The patient was seen and examined in medical telemetry unit She remains very weak and lethargic and asking for help on the time Complains nonspecific chest pain with shortness of breath Denies any other significant symptoms 12/26/2021 The patient was seen and examined in medical telemetry unit in presence of the daughter She has been deteriorating and is giving up Remains very apprehensive of fall and injuring brain and other parts of the body Extremely weak and lethargic Very anxious 12/27/2021 The patient was seen and examined in medical telemetry unit She has been a little better today and asking for help Complains minimal pain in the abdomen but otherwise no other significant symptoms Remains extremely weak and lethargic to participate with physical therapy 12/28/2021 The patient was seen and examined in medical telemetry unit She remains apprehensive Not in any apparent distress She wants to talk to Marianela, her daughter 12/29/2021 Patient was seen and examined in medical telemetry unit She has been stable but remains very apprehensive Has been asking for help and also complains of more pain which is nonspecific but mostly involving the left shoulder today 12/30/2021 The patient was seen and examined in medical telemetry unit She remains very anxious and complains to pain Denies any increasing shortness of breath but remains very weak and tired 12/31/2021 The patient was seen and examined in medical telemetry unit She has been stable but remains very anxious, weak, asking for help all the time and very apprehensive No acute distress at rest though Review of Systems Review of Systems: All systems reviewed and are unremarkable except as noted below Musculoskeletal: Remains extremely weak and lethargic Physical Exam Physical Exam: Lying in bed without any acute distress except minimal short of breath And looks very anxious Constitutional: + ill appearing and average body habitus Eyes: PERRL, conjunctivae normal, anicteric sclerae ENMT: external ear and nose normal, oropharynx normal Neck: trachea midline, no thyromegaly Respiratory: + respiratory distress (Minimal respiratory distress at rest) Auscultation: + diminished lung sounds and + crackles (Occasional crackles at the bases) Cardiovascular: Rate/Rhythm: regular rate and regular rhythm; not tachycardic Heart Sounds: normal S1, normal S2 and + murmur Extremities: + edema (1+ edema bilaterally) Gastrointestinal (Abdomen): Inspection/Auscultation: normal bowel sounds; abdomen not distended Percussion/Palpation: abdomen soft; abdomen nontender Musculoskeletal: No acute arthritis in any joint Neurologic: normal touch/pain/proprioception and moves all extremities; no focal motor deficits Lymphatic: no cervical or axillary lymphadenopathy Results & Data Results & Data ([facility]) Vital Signs (Past 12 Hours) Vital Signs Temp Pulse Pulse Resp BP Pulse Ox O2 Del Method 12/31/21 14:49 71 12/31/21 11:29 35.6 C L 86 18 114/72 95 Room Air 12/31/21 07:25 36.7 C 73 20 136/84 97 Room Air 12/31/21 07:16 67 12/31/21 03:46 36.5 C 64 18 112/64 94 Room Air Medications Administered Current Inpatient Medications Acetaminophen (Acetaminophen 325 Mg Tab) 650 mg PO Q4H PRN PRN Reason: Pain or Fever Stop: 01/16/22 06:31 Last Admin: 12/31/21 10:55 Dose: 650 mg Alprazolam (Alprazolam 0.25 Mg Tablet) 0.25 mg PO HS PRN PRN Reason: anxiety Stop: 01/16/22 06:31 Last Admin: 12/29/21 22:26 Dose: 0.25 mg Apixaban (Apixaban 2.5 Mg Tab) 2.5 mg PO BID BERNARDINO Stop: 01/16/22 08:59 Last Admin: 12/31/21 08:06 Dose: 2.5 mg Atorvastatin Calcium (Atorvastatin 10 Mg Tab) 10 mg PO DAILY BERNARDINO Stop: 01/16/22 08:59 Last Admin: 12/31/21 08:07 Dose: 10 mg Dexamethasone (Dexamethasone 1 Mg Tab) 1 mg PO BID BERNARDINO Stop: 01/16/22 08:59 Last Admin: 12/31/21 08:07 Dose: 1 mg Digoxin (Digoxin 0.125 Mg Tab) 0.125 mg PO DAILY@1600 BERNARDINO Stop: 01/16/22 15:59 Last Admin: 12/30/21 15:39 Dose: 0.125 mg Diltiazem HCl (Diltiazem Hcl 30 Mg Tab) 30 mg PO BID BERNARDINO Stop: 01/16/22 08:59 Last Admin: 12/31/21 08:07 Dose: 30 mg Docusate Sodium (Docusate Sodium 100 Mg Cap) 100 mg PO HS PRN PRN Reason: Constipation Stop: 01/16/22 06:31 Furosemide (Furosemide 20 Mg Tab) 20 mg PO 2XWK PRN PRN Reason: sweling & weight gain Stop: 01/16/22 06:31 Hydroxyzine HCl (Hydroxyzine Hcl 10 Mg Tab) 10 mg PO Q6 PRN PRN Reason: anxiety Stop: 01/16/22 06:31 Last Admin: 12/30/21 09:54 Dose: 10 mg Lactobacillus Acidophilus (Advanced Probiotic 1250 Mg Capsule) 2 cap PO DAILY BERNARDINO Stop: 01/16/22 08:59 Last Admin: 12/31/21 08:07 Dose: 2 cap Levetiracetam (Levetiracetam 500 Mg Tab) 500 mg PO BID BERNARDINO Stop: 01/24/22 20:59 Last Admin: 12/31/21 08:07 Dose: 500 mg Magnesium Hydroxide (Magnesium Hydroxide Susp 30 Ml Udc) 15 ml PO DAILY PRN PRN Reason: Constipation Stop: 01/16/22 06:31 Magnesium Oxide (Magnesium Oxide 400 Mg Tab) 400 mg PO QAM BERNARDINO Stop: 01/16/22 08:59 Last Admin: 12/31/21 08:07 Dose: 400 mg Melatonin (Melatonin 3 Mg Tab) 9 mg PO HS PRN PRN Reason: Sleep Stop: 01/16/22 07:07 Last Admin: 12/29/21 22:26 Dose: 9 mg Methimazole (Methimazole 5 Mg Tablet) 10 mg PO BID [facility] Stop: 01/16/22 08:59 Last Admin: 12/31/21 08:07 Dose: 10 mg Metoprolol Succinate (Metoprolol Succ 50mg Ext Rel Tab) 75 mg PO QAM [facility] Stop: 01/16/22 08:59 Last Admin: 12/31/21 08:07 Dose: 75 mg Morphine Sulfate (Morphine Sulfate 2 Mg/Ml Carp) 2 mg IV Q2H PRN PRN Reason: Pain or dyspnea Stop: 01/09/22 14:25 Last Admin: 12/31/21 00:35 Dose: 2 mg Morphine Sulfate (Morphine Sulfate 5 Mg/0.25 Ml Udp) 5 mg PO Q4H PRN PRN Reason: Pain or dyspnea Stop: 01/13/22 13:46 Last Admin: 12/31/21 13:19 Dose: 5 mg Nitroglycerin (Nitroglycerin Sl 0.4 Mg/Tab Tab) 0.4 mg SL UD PRN PRN Reason: Chest Pain Stop: 01/16/22 06:31 Olanzapine (Olanzapine 10 Mg/2.1 Ml Sdv) 2.5 mg IM Q4H PRN PRN Reason: Anxiety/Agitation Stop: 01/17/22 19:40 Last Admin: 12/18/21 19:56 Dose: 2.5 mg Olanzapine (Olanzapine 5 Mg Tablet) 5 mg PO HS BERNARDINO Stop: 01/29/22 20:59 Last Admin: 12/30/21 20:12 Dose: 5 mg Ondansetron HCl (Ondansetron Inj 2 Mg/Ml 2 Ml Vial) 4 mg IV Q6H PRN PRN Reason: Nausea Stop: 01/16/22 06:31 Last Admin: 12/31/21 00:32 Dose: 4 mg Polyethylene Glycol (Polyethylene (Miralax) 17 Gm Pack) 17 gm PO DAILY [facility] Stop: 01/24/22 20:59 Last Admin: 12/31/21 08:06 Dose: 17 gm Potassium Chloride (Potassium Chloride 10 Meq Tabcr) 10 meq PO DAILY BERNARDINO Stop: 01/16/22 08:59 Last Admin: 12/31/21 08:06 Dose: 10 meq Senna/Docusate Sodium (Docusate Sodium/Senna 50/8.6mg Tab) 1 tab PO QAM [facility] Stop: 01/16/22 08:59 Last Admin: 12/31/21 08:06 Dose: 1 tab (1) Altered mental status Altered mental status type: delirium Qualified Code(s): R41.0 - Disorientation, unspecified
[2021-12-31] MEDS: DIGOXIN 0.125 MG TAB PO SCH (16:44)
[2021-12-31] MEDS: OLANZapine 5 MG TABLET PO SCH (21:20)
[2022-01-01] MEDS: MoRPHine SULFATE 5 MG/0.25 ML UDP PO PRN (01:18)
[2022-01-01 07:06] LABS: Hemoglobin 11.8 g/dl (12.0-16.0); Mean Corpuscular Hemoglobin 28.3 pg (25.0-34.0); Mean Corpuscular Hgb Conc 33.7 g/dL (32.0-36.0); Mean Corpuscular Volume 83.9 fL (80.0-100.0); Mean Platelet Volume 9.6 fL (9.4-12.3); Nucleated RBC # (auto) 0.02 K/uL (0-0); Nucleated RBC % (auto) 0.3 %; Platelet Count 177 K/uL (130-400); RDW Coefficient of Variation 18.2 % (11.5-14.5); RDW Standard Deviation 53.7 fL (36.4-46.3); Red Blood Count 4.17 M/uL (3.93-5.22); White Blood Count 6.84 K/ul (4.8-10.8)
[2022-01-01 07:29] LABS: BUN Creatinine Ratio 81.3 (10-20); Calcium 8.3 mg/dl (8.5-10.1); Creatinine Clr Calc Pharmacy 98.6 ml/min; Est GFR (African American) 115.2 ml/min; Est GFR (Non-African American) 99.4 ml/min; Potassium 4.1 mmol/L (3.5-5.1)
[2022-01-01 07:36] LABS: Lymphocytes % (manual) 19 %; Metamyelocytes # (manual) 0.27 K/uL (0-0); Metamyelocytes % (manual) 4 %; Monocytes # (manual) 0.27 K/uL (0.24-0.82); Monocytes % (manual) 4 %; Myelocytes # (manual) 0.07 K/uL (0-0); Myelocytes % (manual) 1 %; Neutrophils # (manual) 4.92 K/uL (1.4-6.5); Neutrophils % (manual) 72 %; Polychromasia 1+
[2022-01-01] MEDS: POLYETHYLENE (MIRALAX) 17 GM PACK PO SCH (08:20)
[2022-01-01] MEDS: methIMAzole 5 MG TABLET PO SCH (08:21)
[2022-01-01] MEDS: APIXABAN 2.5 MG TAB PO SCH (08:21)
[2022-01-01] MEDS: DOCUSATE SODIUM/SENNA 50/8.6MG TAB PO SCH (08:21)
[2022-01-01] MEDS: POTASSIUM CHLORIDE 10 MEQ TABCR PO SCH (08:21)
[2022-01-01] MEDS: METOPROLOL SUCC 50MG EXT REL TAB PO SCH (08:21)
[2022-01-01] MEDS: ATORVASTATIN 10 MG TAB PO SCH (08:22)
[2022-01-01] MEDS: levETIRAcetam 500 MG TAB PO SCH (08:22)
[2022-01-01] MEDS: ADVANCED PROBIOTIC 1250 MG CAPSULE PO SCH (08:22)
[2022-01-01] MEDS: dexAMETHasone 1 MG TAB PO SCH (08:22)
[2022-01-01] MEDS: MAGNESIUM OXIDE 400 MG TAB PO SCH (08:23)
[2022-01-01] MEDS: dilTIAZem HCL 30 MG TAB PO SCH (08:23)
--- NOTE | 2022-01-01 16:37 | Discharge Summary ---
Discharge Summary Date of Service January 01, 2022 Notes For Next Care Provider Medication Changes From Visit Keppra 500 mg twice daily Morphine as needed Olanzapine 5 mg at bedtime Admission HPI Per Admitting Provider HISTORY OF PRESENT ILLNESS: An 89-year-old female with past medical history significant for hypertension, chronic left bundle-branch block, history of ____ artery aneurysm clipping in 1988, history of atrial flutter,, hyperlipidemia, history of TIA with transient aphasia in 2017, paroxysmal atrial fibrillation , tachybrady syndrome with dual chamber pacemaker insertion in 2020, history of amiodarone-induced thyrotoxicosis, history of pulmonary nodules, history of restless legs syndrome, history of COVID-19, generalized weakness, ambulatory dysfunction, nonrheumatic aortic valve stenosis, chronic heart failure with preserved ejection fraction, who recently had been treated for UTI and again became confused and got admitted to the hospital and discharged on 12/02/2021. During the last admission, initially they thought encephalopathy possibly from steroids and mental status came back to baseline, and she has some ambulatory dysfunction. PT/OT, initially recommended [facility], but later discharged to her NH with physical therapy. Was brought in by daughter today because the patient is getting confused. Daughter is not in the room, able to talk to daughter on phone. The patient is sleepy, drowsy, only mumbles some words and moans. Could not get any history from the patient . As per daughter las t few weeks her mental status is declining and she is not getting better.She had several episodes of sundowning. Sometimes she gets very angry. Sometimes she stops talking. Recently supposed to be seen by neurology for nerve studies but patient was very uncooperative. Not able to stand up. Yesterday before she was brought to the hospital she was very shaky in the wheel chair. Currently patient is very confused.. The patient also is having small superficial wounds in the lower extremity with dressing, but when dressing taken out has a small wound in the right calf region with slight drainage. Hemodynamically stable. Admission Exam Per Admitting Provider GENERAL: The patient is old and frail, confused, not answering any questions. VITAL SIGNS: Temperature 36.6, pulse is 62, respiratory rate 18, blood pressure 133/65, oxygen 98% on room air. HEENT: Pupils equal, round and reactive to light. Oral mucosa dry. NECK: No JVD. No neck masses. CARDIOVASCULAR: S1 and S2 heard. Regular rate and rhythm. No murmur, no gallop. RESPIRATORY SYSTEM: Normal AP diameter. No accessory muscle use. No wheezing, no crackles. ABDOMEN: Soft, bowel sounds present. Some mild discomfort, no rigidity, no distention. CENTRAL NERVOUS SYSTEM: The patient is confused, mumbles with low voice. Moves legs with painful stimuli. EXTREMITIES: Lower extremities, mild pedal edema present. Some superficial skin ulcers seen in bilateral wolfe regions and also some slight drainage only seen in the right calf region. Principal Dx & Hospital Course #1 = Principal Diagnosis (1) Altered mental status: per Dr. 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 She is being managed for the following: Altered mental status: Multiple etiologies as above and is complicated by UTI and bilateral leg wounds BLE wounds Possible MDR UTI/ likely complicated UTI ?? 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 At presentation, patient was mumbling and not answering any questions. 11 AM exam, patient was oriented x3 but unable to move her left lower extremity. Sensation was intact BLE. Patient started on Zosyn and doxycycline on 12/17 --> MDR E faecium in U Cx noted on 12/20 --> Zosyn DC'd 12/20, Vanc started 12/20, ID consulted. Blood cultures have been negative Clinically not any better and remains extremely weak and lethargic Mental cloudiness seems to be improving Remains extremely weak and lethargic and was not being able to participate in physical therapy This is a significant deterioration from her days before Overall deterioration of her condition Remains very weak and lethargic and apprehensive of any fall even she has not tried any activities Remained stable but very depressed and anxious Also became very agitated and anxious-Zyprexa at bedtime ordered Palliative care evaluated patient, recommended hospice care, family decided to transition patient to [facility] with hospice services Possible seizure Patient had ? shaky episode before coming to the hospital, concern for postictal 12/18 EEG: fairly normal-appearing awake/drowsy EEG. No epileptiform abnormalities observed. D/w neurology 12/19, concern for underlying seizure activity, on trial of keppra and continue to monitor. S/P LP 12/20: fluid analysis fairly wnl, meningoencephalitis panel pcr negative, f/u CSF C/S; CSF path neg for malignancy. Will continue Keppra orally Admitting imagings C-spine CT: No acute findings but with severe multilevel degenerative changes within the cervical spine. Head CT: Chronic finding of encephalomalacia of the inferior left frontal lobe. Involutional changes with ex vacuo ventriculomegaly. Pelvic x-ray: No acute findings. CXR: No acute findings. CTAP: No acute findings. F/u CT head 12/18: No new changes compared to prior. Amiodarone induced thyroiditis and hyperthyroidism: On methimazole and dexamethasone 1 Mg p.o. twice daily. Follows endocrinology. Paroxysmal A. fib: On metoprolol/Cardizem/digoxin/Eliquis. Heart rate remains controlled Other chronic medical conditions: Tachybradycardia syndrome [status post pacemaker], constipation [on a stool softener], history of TIA --->> continue with/resume home meds Discharge Exam General- oriented x 2, not in distress, speaks in sentences with no effort or accessory muscle use Patient appears weak Eyes- anicteric Neck- no JVD Lungs- clear breath sounds bilaterally, no rales/wheezes Heart- normal rate, regular rhythm; no murmurs Abdomen- normal bowel sounds, nondistended, soft, nontender Extremities- no pretibial edema, no calf tenderness Neuro- alert, oriented x 2; no gross focal neurologic deficits Skin- warm & dry Updated Medication List Medication Instructions Recorded Confirmed Type digoxin 125 mcg (0.125 mg) tablet 125 mcg PO DAILY@1600 #30 tabs 09/24/21 12/16/21 Rx (Digitek) Lactobacillus acidophilus 10 100 mg PO DAILY #7 caps 11/21/21 12/16/21 Rx billion cell capsule (Probiotic) alprazolam 0.25 mg tablet 0.25 mg PO HS PRN anxiety #15 tabs 11/21/21 12/16/21 Rx apixaban 2.5 mg tablet (Eliquis) 2.5 mg PO BID #60 tabs 11/21/21 12/16/21 Rx atorvastatin 10 mg tablet 10 mg PO DAILY #30 tabs 11/21/21 12/16/21 Rx diltiazem HCl 30 mg tablet 30 mg PO BID #60 tabs 11/21/21 12/16/21 Rx docusate sodium 100 mg capsule 100 mg PO HS PRN Constipation #30 11/21/21 12/16/21 Rx (Stool Softener) caps furosemide 20 mg tablet (Lasix) 20 mg PO 2XWK PRN sweling and 11/21/21 12/16/21 Rx weight gain #30 tabs hydroxyzine HCl 10 mg tablet 10 mg PO Q6 PRN anxiety #20 tabs 11/21/21 12/16/21 Rx magnesium hydroxide 400 mg/5 mL 15 ml PO DAILY PRN Constipation 11/21/21 12/16/21 Rx oral suspension (Milk of Magnesia) #30 mL magnesium oxide 400 mg PO QAM #30 tabs 11/21/21 12/16/21 Rx melatonin 10 mg tablet 10 mg PO HS PRN Sleep #30 tabs 11/21/21 12/16/21 Rx polyethylene glycol 3350 17 gram 17 g PO DAILY PRN constipation #14 11/21/21 12/16/21 Rx oral powder packet (Miralax) ea potassium chloride 10 mEq 10 meq PO DAILY #30 tabs 11/21/21 12/16/21 Rx tablet,extended release(part/cryst) sennosides 8.6 mg-docusate sodium 1 tab PO QAM #30 tabs 11/21/21 12/16/21 Rx 50 mg tablet (Senokot-S) dexamethasone 1 mg tablet 1 mg PO BID 30 days #60 tabs 12/02/21 12/16/21 Rx methimazole 10 mg tablet 10 mg PO BID #60 tabs 12/02/21 12/16/21 Rx acetaminophen 325 mg tablet 650 mg PO Q4 PRN Pain 12/16/21 12/16/21 History metoprolol succinate 25 mg 25 mg PO QAM 12/16/21 12/16/21 History tablet,extended release 24 hr metoprolol succinate 50 mg 50 mg PO QAM 12/16/21 12/16/21 History tablet,extended release 24 hr levetiracetam 500 mg tablet 500 mg PO BID 30 days #60 tabs 01/01/22 Rx (Keppra) morphine concentrate 100 mg/5 mL 5 mg (0.25 mL) PO Q4H PRN pain #50 01/01/22 Rx (20 mg/mL) oral solution mL olanzapine 5 mg tablet 5 mg PO HS #14 tabs 01/01/22 Rx Hospital Stay Data Consultations 12/17/21 00:56 ED Decision to Admit Stat 12/17/21 08:00 Consult Neurology Routine 12/19/21 10:23 Consult Psychiatry Routine 12/19/21 17:05 Consult Palliative Care Routine 12/20/21 14:53 Consult Infectious Diseases Routine Diagnostic Imagining Performed 12/16/21 22:24 CT cervical spine wo con Stat CT head/brain wo con Stat 12/16/21 22:42 CT abd pelvis wo con Stat 12/18/21 14:55 CT head/brain wo con Routine 12/20/21 15:18 FL lumbar puncture diagnostic Routine Pending Results Patient Have Any Pending Studies at Discharge: No Discharge Instructions Given to Patient (Per Discharging Provider) Transition to hospice care services at [facility]. Total Time Total Time Spent Total Time Spent (In Minutes): >30 minutes
== END 2022-01-01 11:17 | disposition hospice, inpatient (51) | DRG 690 ==
LOC: ED 22:11 → EDINP 12-17 05:04 → SUATTDRO 12-17 05:04 → 2W 12-17 06:31